=== PATIENT | male | born 1935 | race Caucasian/White ===

== ENCOUNTER 2019-04-19 07:01 | Outpatient (CLI) | payer MEDICARE, SELFPAY ==
[2019-04-19 07:21] LABS: Add Urine Microscopic? YES; Basophils Absolute Auto 0.04 K/mm3 (0.00-0.10); Basophils Percent Auto 0.9 % (0.0-1.0); Bilirubin Urine Negative (Negative); Blood Urine 3+ (Negative); Color Urine Yellow (Yellow); Eosinophils Absolute Auto 0.19 K/mm3 (0.02-0.50); Eosinophils Percent Auto 4.3 % (1.0-6.0); Glucose Urine UA Negative (Negative); Hemoglobin 11.4 g/dL (12.4-15.3); Immature Granulocyte Absolute 0.02 K/mm3 (0.00-0.00); Immature Granulocyte Percent A 0.5 % (0.0-0.0); Immature Platelet Fraction Pct 2.5 % (1.0-7.0); Ketones Urine Negative (Negative); Leukocyte Esterase Ur 3+ LEU/UL (Negative); Lymphocytes Absolute Auto 1.15 K/mm3 (1.10-4.50); Lymphocytes Percent Auto 26.3 % (18.0-42.0); Mean Corpuscular HGB Conc 33.5 g/dL (32.0-36.0); Mean Corpuscular Volume 95.5 fL (78.0-102.0); Monocytes Absolute Auto 0.43 K/mm3 (0.10-0.90); Monocytes Percent Auto 9.8 % (2.0-11.0); Neutrophils Absolute Auto 2.5 K/mm3 (1.7-7.2); Neutrophils Percent Auto 58.2 % (50.0-70.0); Nitrate Urine Negative (Negative); Platelet Count Result 74 K/mm3 (150-420); Protein Urine Trace (Negative); Red Blood Count 3.56 M/mm3 (4.70-6.10); Red Cell Distribution Width 14.5 % (11.6-14.4); Specific Grav Ur 1.015 (1.010-1.020); Urobilinogen Urine 0.2 mg/dL (0.2-1.0); White Blood Count 4.4 K/mm3 (4.8-10.8); pH Urine 6.5 (5.0-8.0)
[2019-04-19 07:26] LABS: Appearance Urine Cloudy (Clear); Bacteria Urine 1+ /hpf; Hemoglobin A1C 6.6 % (<5.7); WBC Urine >75 /hpf (0-3)
[2019-04-19 08:52] LABS: Alanine Aminotransferase 24 U/L (16-63); Albumin Level 3.2 g/dL (3.4-5.0); Alkaline Phosphatase 122 U/L (46-116); Anion Gap 15.4 mmol/L (7-16); Aspartate Amino Transferase 27 U/L (15-37); Bilirubin,Total 0.4 mg/dL (0.00-1.00); Blood Urea Nitrogen 28 mg/dL (7-18); Calcium 8.4 mg/dL (8.5-10.1); Carbon Dioxide 23 mmol/L (21-32); Chloride 109 mmol/L (98-108); Cholesterol 121 mg/dL (0-200); Estimated Glomerular Filt Rate 42; Glucose 126 mg/dL (70-99); HDL Direct 42 mg/dL (40-60); LDL Cholesterol Calculated 61 mg/dL (<130); Osmolality Calculated 303 mOsm/kg (285-295); Potassium 4.4 mmol/L (3.5-5.1); Prostate Specific Antigen 4.9 ng/mL (< OR = 4.0); Sodium 143 mmol/L (136-145); Total Protein 7.2 g/dL (6.4-8.2); Triglycerides 91 mg/dL (0-150)
== END 2019-04-19 07:02 | disposition home or self-care (01) ==
PROVIDERS: PCP Internal Medicine; Visit Provider Internal Medicine
DX: E78.5 Hyperlipidemia, unspecified (principal); E11.65 Type 2 diabetes mellitus with hyperglycemia; I10 Essential (primary) hypertension; R97.20 Elevated prostate specific antigen [PSA]; R82.90 Unspecified abnormal findings in urine
CPT/HCPCS: 36415; 80053; 80061; 81001; 83036; 84153; 85025; 85055; 87077; 87086; 87088; 87186

== ENCOUNTER 2019-05-09 11:03 | Outpatient (CLI) | payer MEDICARE, SELFPAY ==
--- NOTE | ~2019-05-09 | XR_ITS ---
XR hip LT min 2V DATE: 05/09/2019 11:20 INDICATION: Left hip pain, limited range of motion. TECHNIQUE: AP and lateral views of left hip COMPARISON: None FINDINGS: No fracture or dislocation, avascular necrosis or bone destruction. There is mild left hip osteoarthritis. IMPRESSION: Mild left hip osteoarthritis Reviewed, dictated and finalized at location A.
== END 2019-05-09 11:04 | disposition home or self-care (01) ==
PROVIDERS: PCP Internal Medicine; Visit Provider Internal Medicine
DX: M25.552 Pain in left hip (principal)
CPT/HCPCS: 73502

== ENCOUNTER 2019-08-04 11:26 | Outpatient (CLI) | payer MEDICARE, SELFPAY ==
--- NOTE | ~2019-08-04 | XR_ITS ---
XR hip LT min 2V 08/04/2019 12:06 Indication: Left hip pain. Procedure: 2 views left hip Comparison: 05/09/2019 Findings: No fracture, subluxation or dislocation. There is moderate osteoarthritis of the left hip.t here are degenerative changes of the pubic symphysis. Sacral foramen are symmetric. Impression: 1: Moderate osteoarthritis of the left hip. Reviewed, dictated and finalized at location A. Impression: 1: Moderate osteoarthritis of the left hip.
== END 2019-08-04 11:27 | disposition home or self-care (01) ==
LOC: CHSIMG 11:30
PROVIDERS: PCP Internal Medicine; Visit Provider Internal Medicine
DX: M25.552 Pain in left hip (principal)
CPT/HCPCS: 73502

== ENCOUNTER 2019-08-09 07:44 | Outpatient (CLI) | payer MEDICARE, SELFPAY ==
--- NOTE | ~2019-08-09 | MR_ITS ---
EXAMINATION: MR hip LT wo con DATE: 08/09/2019 08:56 INDICATION: Left hip pain. TECHNIQUE: Magnetic resonance imaging (MRI) of the left hip was performed without intravenous contras t. Sequences included axial and coronal PD-weighted FS FSE and axial T1-weighted FSE of the pelvis. S equences of the hip included 2D FIESTA, T1-weighted fast GRE, and axial, coronal, and sagittal PD-kirsten ghted FS FSE. COMPARISON: Left hip radiograph 08/04/2019 FINDINGS: Bones/cartilage: Bone alignment is normal. No fracture. There is severe lumbar spondylosis. There is mild right hip os teoarthritis and moderate left hip osteoarthritis. Left hip demonstrates deep partial thickness carti román loss superiorly. Labrum: The left acetabular labrum is torn. Fluid: There is no hip joint effusion. There is moderate right trochanteric bursitis and severe left trochan teric bursitis. Soft tissues: There are partial tears of the right gluteus minimus and gluteus medius tendons. There are partial te ars of the left gluteus minimus and gluteus medius tendons. There are partial tears of the left glute us minimus and gluteus medius myotendinous junctions. There is moderate to severe fatty atrophy of th e gluteus minimus and gluteus medius muscle bellies bilaterally. The iliopsoas tendons are normal. Th ere is moderate tendinopathy of the hamstring origins bilaterally. The prostate is moderately enlarge d. The bladder is distended with trabecular wall and left-sided diverticulum. IMPRESSION: 1. Grade 2 strains of the left gluteus minimus and gluteus medius muscle bellies. Partial tears of th e bilateral gluteus minimus and gluteus medius tendons. 2. Moderate right-sided trochanteric bursitis and severe left-sided trochanteric bursitis. 3. Mild right hip osteoarthritis and moderate left hip osteoarthritis. Reviewed, dictated and finalized at location A. IMPRESSION: 1. Grade 2 strains of the left gluteus minimus and gluteus medius muscle bellie s. Partial tears of the bilateral gluteus minimus and gluteus medius tendons. 2. Moderate right-sided trochanteric bursitis and severe left-sided trochanteri c bursitis. 3. Mild right hip osteoarthritis and moderate left hip osteoarthritis.
== END 2019-08-09 07:45 | disposition home or self-care (01) ==
LOC: CHSIMG 07:47
PROVIDERS: PCP Internal Medicine; Visit Provider Internal Medicine
DX: M25.552 Pain in left hip (principal)
CPT/HCPCS: 73721

== ENCOUNTER 2019-08-21 10:53 | Outpatient (CLI) | payer MEDICARE, SELFPAY ==
[2019-08-21 11:04] LABS: Basophils Absolute Auto 0.05 K/mm3 (0.00-0.10); Basophils Percent Auto 0.9 % (0.0-1.0); Eosinophils Absolute Auto 0.26 K/mm3 (0.02-0.50); Eosinophils Percent Auto 4.5 % (1.0-6.0); Hematocrit 33.3 % (37.0-46.0); Hemoglobin 11.2 g/dL (12.4-15.3); Immature Granulocyte Absolute 0.03 K/mm3 (0.00-0.00); Immature Granulocyte Percent A 0.5 % (0.0-0.0); Immature Platelet Fraction Pct 3.2 % (1.0-7.0); Lymphocytes Absolute Auto 1.28 K/mm3 (1.10-4.50); Lymphocytes Percent Auto 22.4 % (18.0-42.0); Mean Corpuscular HGB Conc 33.6 g/dL (32.0-36.0); Mean Corpuscular Hemoglobin 32.1 pg (27.0-31.0); Mean Corpuscular Volume 95.4 fL (78.0-102.0); Mean Platelet Volume 11.2 fl (8.7-11.0); Monocytes Absolute Auto 0.63 K/mm3 (0.10-0.90); Neutrophils Absolute Auto 3.5 K/mm3 (1.7-7.2); Neutrophils Percent Auto 60.7 % (50.0-70.0); Platelet Count Result 101 K/mm3 (150-420); Red Blood Count 3.49 M/mm3 (4.70-6.10); Red Cell Distribution Width 14.2 % (11.6-14.4); White Blood Count 5.7 K/mm3 (4.8-10.8)
[2019-08-21 11:24] LABS: Anion Gap 15.2 mmol/L (7-16); Blood Urea Nitrogen 22 mg/dL (7-18); Calcium 8.5 mg/dL (8.5-10.1); Carbon Dioxide 24 mmol/L (21-32); Chloride 103 mmol/L (98-108); Estimated Glomerular Filt Rate 44; Glucose 121 mg/dL (70-99); Osmolality Calculated 290 mOsm/kg (285-295); Potassium 4.2 mmol/L (3.5-5.1); Sodium 138 mmol/L (136-145)
== END 2019-08-21 10:54 | disposition home or self-care (01) ==
LOC: CHSLAB 10:55
PROVIDERS: PCP Internal Medicine; Visit Provider Internal Medicine
DX: D64.9 Anemia, unspecified (principal); N18.3 Chronic kidney disease, stage 3 (moderate)
CPT/HCPCS: 36415; 80048; 85025; 85055

== ENCOUNTER 2019-08-22 10:31 | Outpatient (CLI) | payer MEDICARE, SELFPAY ==
--- NOTE | ~2019-08-22 | XR_ITS ---
EXAMINATION: XR hip LT min 2V EXAM DATE: 08/22/2019 10:47 INDICATION: No known recent injury provided at this time. Pain of the left hip. Recent cortisone mikhail t. TECHNIQUE: Left hip frontal, 'frog leg' projections for interpretation. Comparison is made to prior e xamination from 08/04/2019. FINDINGS: Smooth left hip femoral head contour, no radiographic evidence of avascular necrosis. Ther e is moderate primary osteoarthritis. There are no acute fractures or dislocations identified. There is no subcutaneous gas. The soft tissue is unremarkable. There are no radiopaque foreign bodies. There is no significant interval change. IMPRESSION: Moderate left hip osteoarthritis unchanged. Reviewed, dictated and finalized at location B.
== END 2019-08-22 10:32 | disposition home or self-care (01) ==
LOC: CHSIMG 10:32
PROVIDERS: PCP Internal Medicine; Visit Provider Internal Medicine
DX: M25.552 Pain in left hip (principal)
CPT/HCPCS: 73502

== ENCOUNTER 2019-09-17 10:24 | Outpatient (CLI) | payer MEDICARE, SELFPAY ==
[2019-09-17 10:36] LABS: Hematocrit 33.5 % (37.0-46.0); Hemoglobin 11.1 g/dL (12.4-15.3); Mean Corpuscular HGB Conc 33.1 g/dL (32.0-36.0); Mean Corpuscular Hemoglobin 31.4 pg (27.0-31.0); Mean Corpuscular Volume 94.9 fL (78.0-102.0); Mean Platelet Volume 11.3 fl (8.7-11.0); Platelet Count Result 65 K/mm3 (150-420); Red Blood Count 3.53 M/mm3 (4.70-6.10); Red Cell Distribution Width 14.9 % (11.6-14.4); White Blood Count 3.3 K/mm3 (4.8-10.8)
[2019-09-17 11:39] LABS: Band Neutrophils Percent 0 % (0-6); Basophils Absolute Manual 0.03 K/mm3 (0-0.1); Basophils Percent Manual 1 % (0-1); Eosinophils Absolute Manual 0.26 K/mm3 (0.02-0.5); Eosinophils Percent Manual 8 % (1-6); Lymphocytes Absolute Manual 0.82 K/mm3 (1.1-4.5); Lymphocytes Percent Manual 25 % (18-44); Monocytes Absolute Manual 0.36 K/mm3 (0.1-0.90); Monocytes Percent Manual 11 % (3-9); Neutrophils Absolute Manual 1.81 K/mm3 (1.3-6.7); Neutrophils Percent Manual 55 % (46-73); Platelet Estimate Decreased (Adequate); Total Cells Counted 100
[2019-09-17 12:00] LABS: Alanine Aminotransferase 26 U/L (16-63); Albumin Level 2.9 g/dL (3.4-5.0); Alkaline Phosphatase 125 U/L (46-116); Anion Gap 14.3 mmol/L (7-16); Aspartate Amino Transferase 23 U/L (15-37); Bilirubin,Total 0.7 mg/dL (0.00-1.00); Blood Urea Nitrogen 23 mg/dL (7-18); Calcium 8.4 mg/dL (8.5-10.1); Carbon Dioxide 24 mmol/L (21-32); Chloride 103 mmol/L (98-108); Estimated Glomerular Filt Rate 45; Free T3 1.92 pg/mL (2.18-3.98); Free T4 Free Thyroxine 1.16 ng/dL (0.76-1.46); Glucose 237 mg/dL (70-99); Osmolality Calculated 295 mOsm/kg (285-295); Potassium 4.3 mmol/L (3.5-5.1); Sodium 137 mmol/L (136-145); Total Protein 6.4 g/dL (6.4-8.2); Vitamin B12 738 pg/mL (193-986)
== END 2019-09-17 10:25 | disposition home or self-care (01) ==
LOC: CHSLAB 10:25
PROVIDERS: PCP Internal Medicine; Visit Provider Internal Medicine
DX: G62.9 Polyneuropathy, unspecified (principal); I10 Essential (primary) hypertension; D64.9 Anemia, unspecified
CPT/HCPCS: 36415; 80053; 82607; 84439; 84443; 84481; 85025; 85055

== ENCOUNTER 2019-11-01 07:31 | Outpatient (CLI) | payer MEDICARE, SELFPAY ==
[2019-11-01 07:48] LABS: Basophils Absolute Auto 0.05 K/mm3 (0.00-0.10); Basophils Percent Auto 1.1 % (0.0-1.0); Eosinophils Absolute Auto 0.22 K/mm3 (0.02-0.50); Eosinophils Percent Auto 4.9 % (1.0-6.0); Hematocrit 34.9 % (37.0-46.0); Hemoglobin 11.1 g/dL (12.4-15.3); Immature Granulocyte Absolute 0.01 K/mm3 (0.00-0.00); Immature Granulocyte Percent A 0.2 % (0.0-0.0); Immature Platelet Fraction Pct 3.6 % (1.0-7.0); Lymphocytes Absolute Auto 1.24 K/mm3 (1.10-4.50); Lymphocytes Percent Auto 27.8 % (18.0-42.0); Mean Corpuscular HGB Conc 31.8 g/dL (32.0-36.0); Mean Corpuscular Hemoglobin 30.2 pg (27.0-31.0); Mean Corpuscular Volume 95.1 fL (78.0-102.0); Mean Platelet Volume 10.8 fl (8.7-11.0); Monocytes Percent Auto 11.2 % (2.0-11.0); Neutrophils Absolute Auto 2.4 K/mm3 (1.7-7.2); Neutrophils Percent Auto 54.8 % (50.0-70.0); Platelet Count Result 74 K/mm3 (150-420); Red Blood Count 3.67 M/mm3 (4.70-6.10); Red Cell Distribution Width 15.9 % (11.6-14.4); White Blood Count 4.5 K/mm3 (4.8-10.8)
[2019-11-01 08:03] LABS: Add Urine Microscopic? YES; Bilirubin Urine Negative (Negative); Blood Urine 3+ (Negative); Color Urine Yellow (Yellow); Glucose Urine UA Negative (Negative); Ketones Urine Negative (Negative); Leukocyte Esterase Ur 3+ (Negative); Nitrate Urine Negative (Negative); Protein Urine Trace (Negative); Specific Grav Ur 1.015 (1.010-1.020); Urobilinogen Urine 0.2 mg/dL (0.2-1.0)
[2019-11-01 08:08] LABS: Appearance Urine Cloudy (Clear)
[2019-11-01 08:09] LABS: Bacteria Urine 1+ /hpf; WBC Urine >75 /hpf (0-3)
[2019-11-01 08:12] LABS: Hemoglobin A1C 6.2 % (<5.7)
[2019-11-01 08:17] LABS: Creatinine Urine 62.08 mg/dL (40-278)
[2019-11-01 08:36] LABS: MALB Creatinine Ratio 208.4 mg/g (0-30); Microalbumin Urine Random 129.4 mg/L
[2019-11-01 08:56] LABS: Alanine Aminotransferase 28 U/L (16-63); Albumin Level 3.2 g/dL (3.4-5.0); Alkaline Phosphatase 117 U/L (46-116); Anion Gap 10 mmol/L (8-16); Aspartate Amino Transferase 25 U/L (15-37); Bilirubin,Total 0.6 mg/dL (0.00-1.00); Blood Urea Nitrogen 29 mg/dL (7-18); Calcium 8.7 mg/dL (8.5-10.1); Carbon Dioxide 22 mmol/L (21-32); Chloride 109 mmol/L (98-108); Cholesterol 120 mg/dL (0-200); Creatine Kinase 47 U/L (39-308); Estimated Glomerular Filt Rate 41; Ferritin 70 ng/mL (26-388); Glucose 125 mg/dL (70-99); HDL Direct 44 mg/dL (40-60); Iron 54 ug/dL (65-175); LDL Cholesterol Calculated 65 mg/dL (<130); Osmolality Calculated 298 mOsm/kg (285-295); Percent Iron Saturation 20 % (12-57); Potassium 4.3 mmol/L (3.5-5.1); Sodium 141 mmol/L (136-145); Triglycerides 53 mg/dL (0-150); Uric Acid 5.2 mg/dL (3.5-7.2)
== END 2019-11-01 07:32 | disposition home or self-care (01) ==
LOC: CHSLAB 07:34
PROVIDERS: PCP Internal Medicine; Visit Provider Internal Medicine
DX: E11.21 Type 2 diabetes mellitus with diabetic nephropathy (principal); E79.0 Hyperuricemia without signs of inflammatory arthritis and tophaceous disease; E78.2 Mixed hyperlipidemia; I12.9 Hypertensive chronic kidney disease with stage 1 through stage 4 chronic kidney disease, or unspecified chronic kidney disease; N18.3 Chronic kidney disease, stage 3 (moderate); D61.818 Other pancytopenia; R97.20 Elevated prostate specific antigen [PSA]
CPT/HCPCS: 36415; 80053; 80061; 81001; 82043; 82550; 82728; 83036; 83540; 83550; 84153; 84550; 85025; 85055

== ENCOUNTER 2019-11-21 09:13 | Outpatient (CLI) | payer MEDICARE, SELFPAY ==
--- NOTE | 2019-12-09 09:12 | WPDHOLTEREM ---
Holter/Event Monitor Holter/Event Monitor Date of procedure: 11/21/19 Procedure Type: 30 day event monitor Indications: Palpitations Conclusion: 1. 8 days event monitor between 11/21/19-12/08/19. There are 18 available transmissions for analysis. 2. Underlying rhythm is sinus rhythm. HR range 51-105 bpm; average HR 65 bpm. 3. There are occasional premature supraventricular complexes with total burden of <1%. No supraventricular tachycardia. 4. There are occasional premature ventricular complexes with total burden of <1%. No ventricular tachycardia. 5. No significant pauses greater than 2 seconds. 6. Patient reports 6 episodes of symptoms of lightheadedness, dizziness and symptoms other than listed which demonstrate sinus rhythm, HR range 63-75 bpm.
== END 2019-11-21 09:14 | disposition home or self-care (01) ==
LOC: CHSCARD 09:14
PROVIDERS: PCP Internal Medicine; Visit Provider Internal Medicine
DX: R00.2 Palpitations (principal)
CPT/HCPCS: 99199

== ENCOUNTER 2020-02-24 07:37 | Outpatient (CLI) | payer MEDICARE, SELFPAY ==
[2020-02-24 07:49] LABS: Basophils Absolute Auto 0.06 K/mm3 (0.00-0.10); Basophils Percent Auto 1.2 % (0.0-1.0); Eosinophils Absolute Auto 0.32 K/mm3 (0.02-0.50); Eosinophils Percent Auto 6.4 % (1.0-6.0); Hematocrit 33.9 % (37.0-46.0); Hemoglobin 10.8 g/dL (12.4-15.3); Immature Granulocyte Absolute 0.02 K/mm3 (0.00-0.00); Immature Granulocyte Percent A 0.4 % (0.0-0.0); Lymphocytes Absolute Auto 1.27 K/mm3 (1.10-4.50); Lymphocytes Percent Auto 25.5 % (18.0-42.0); Mean Corpuscular HGB Conc 31.9 g/dL (32.0-36.0); Mean Corpuscular Hemoglobin 30.3 pg (27.0-31.0); Mean Platelet Volume 10.8 fl (8.7-11.0); Monocytes Absolute Auto 0.48 K/mm3 (0.10-0.90); Monocytes Percent Auto 9.6 % (2.0-11.0); Neutrophils Absolute Auto 2.8 K/mm3 (1.7-7.2); Neutrophils Percent Auto 56.9 % (50.0-70.0); Platelet Count Result 95 K/mm3 (150-420); Red Blood Count 3.57 M/mm3 (4.70-6.10); Red Cell Distribution Width 14.6 % (11.6-14.4)
[2020-02-24 08:38] LABS: Anion Gap 9 mmol/L (8-16); Blood Urea Nitrogen 24 mg/dL (7-18); Calcium 8.9 mg/dL (8.5-10.1); Carbon Dioxide 23 mmol/L (21-32); Chloride 107 mmol/L (98-108); Estimated Glomerular Filt Rate 41; Ferritin 26 ng/mL (26-388); Glucose 127 mg/dL (70-99); Iron 64 ug/dL (65-175); Osmolality Calculated 294 mOsm/kg (285-295); Percent Iron Saturation 18 % (12-57); Potassium 4.3 mmol/L (3.5-5.1); Sodium 139 mmol/L (136-145)
== END 2020-02-24 07:38 | disposition home or self-care (01) ==
LOC: CHSLAB 07:39
PROVIDERS: PCP Internal Medicine; Visit Provider Internal Medicine
DX: D61.818 Other pancytopenia (principal); N18.30 Chronic kidney disease, stage 3 unspecified; D64.9 Anemia, unspecified
CPT/HCPCS: 36415; 80048; 82728; 83540; 83550; 85025; 85055

== ENCOUNTER 2020-05-22 07:33 | Outpatient (CLI) | payer MEDICARE, SELFPAY ==
[2020-05-22 07:49] LABS: Basophils Absolute Auto 0.04 K/mm3 (0.00-0.10); Basophils Percent Auto 0.8 % (0.0-1.0); Eosinophils Absolute Auto 0.22 K/mm3 (0.02-0.50); Eosinophils Percent Auto 4.5 % (1.0-6.0); Hematocrit 35.5 % (37.0-46.0); Hemoglobin 11.6 g/dL (12.4-15.3); Immature Granulocyte Absolute 0.01 K/mm3 (0.00-0.00); Immature Granulocyte Percent A 0.2 % (0.0-0.0); Lymphocytes Absolute Auto 1.39 K/mm3 (1.10-4.50); Lymphocytes Percent Auto 28.7 % (18.0-42.0); Mean Corpuscular HGB Conc 32.7 g/dL (32.0-36.0); Mean Corpuscular Hemoglobin 31.2 pg (27.0-31.0); Mean Corpuscular Volume 95.4 fL (78.0-102.0); Mean Platelet Volume 11.2 fl (8.7-11.0); Monocytes Absolute Auto 0.46 K/mm3 (0.10-0.90); Monocytes Percent Auto 9.5 % (2.0-11.0); Neutrophils Absolute Auto 2.7 K/mm3 (1.7-7.2); Neutrophils Percent Auto 56.3 % (50.0-70.0); Platelet Count Result 74 K/mm3 (150-420); Red Blood Count 3.72 M/mm3 (4.70-6.10); Red Cell Distribution Width 15.7 % (11.6-14.4); White Blood Count 4.9 K/mm3 (4.8-10.8)
[2020-05-22 08:47] LABS: Add Urine Microscopic? YES; Bilirubin Urine Negative (Negative); Blood Urine 3+ (Negative); Color Urine Yellow (Yellow); Glucose Urine UA Negative (Negative); Ketones Urine Negative (Negative); Leukocyte Esterase Ur 3+ (Negative); Nitrate Urine Positive (Negative); Protein Urine Trace (Negative); Specific Grav Ur 1.015 (1.010-1.020); Urobilinogen Urine 0.2 mg/dL (0.2-1.0)
[2020-05-22 08:49] LABS: Alanine Aminotransferase 26 U/L (16-63); Albumin Level 3.1 g/dL (3.4-5.0); Alkaline Phosphatase 113 U/L (46-116); Anion Gap 10 mmol/L (8-16); Aspartate Amino Transferase 23 U/L (15-37); Bilirubin,Total 0.5 mg/dL (0.00-1.00); Blood Urea Nitrogen 32 mg/dL (7-18); Calcium 8.6 mg/dL (8.5-10.1); Carbon Dioxide 24 mmol/L (21-32); Chloride 107 mmol/L (98-108); Cholesterol 116 mg/dL (0-200); Estimated Glomerular Filt Rate 39; Ferritin 86 ng/mL (26-388); Glucose 133 mg/dL (70-99); HDL Direct 48 mg/dL (40-60); Iron 38 ug/dL (65-175); LDL Cholesterol Calculated 52 mg/dL (<130); Osmolality Calculated 300 mOsm/kg (285-295); Percent Iron Saturation 13 % (12-57); Potassium 4.2 mmol/L (3.5-5.1); Sodium 141 mmol/L (136-145); Total Protein 6.7 g/dL (6.4-8.2); Triglycerides 79 mg/dL (0-150); Vitamin B12 708 pg/mL (193-986)
[2020-05-22 09:08] LABS: Appearance Urine Cloudy (Clear); RBC Urine None seen /hpf (0-2); Squamous Epithelial Cell Urine Rare /hpf (Few); WBC Urine >75 /hpf (0-3)
[2020-05-22 09:09] LABS: Bacteria Urine 1+ /hpf
== END 2020-05-22 07:34 | disposition home or self-care (01) ==
LOC: CHSLAB 07:34
PROVIDERS: PCP Internal Medicine; Visit Provider Internal Medicine
DX: E11.21 Type 2 diabetes mellitus with diabetic nephropathy (principal); D69.6 Thrombocytopenia, unspecified; I10 Essential (primary) hypertension; D61.818 Other pancytopenia; G62.9 Polyneuropathy, unspecified; N18.30 Chronic kidney disease, stage 3 unspecified
CPT/HCPCS: 36415; 80053; 80061; 81001; 82607; 82728; 83540; 83550; 85025; 85055

== ENCOUNTER → 2020-05-31 00:16 | Outpatient (CLI) | payer MEDICARE, SELFPAY ==
[2020-05-31 19:29] LABS: SARS-CoV-2 RNA PCR Negative
== END ==
PROVIDERS: PCP Internal Medicine; Visit Provider Surgery
DX: Z01.812 Encounter for preprocedural laboratory examination (principal); Z20.822 Contact with and (suspected) exposure to COVID-19
CPT/HCPCS: C9803; U0003; U0005

== ENCOUNTER 2020-06-03 01:52 | Day surgery (SDC) | payer MEDICARE, SELFPAY ==
[2020-05-26 13:54] VITALS: BMI 29.6
[2020-06-03 08:40] VITALS: BP 166/74; PULSE 65; RESP 18; TEMP 36.1; O2SAT 100; BMI 29.2
[2020-06-03] MEDS: LACTATED RINGERS 1,000 ML 150 ML IV CONT (08:55)
[2020-06-03 08:56] LABS: Glucose Point of Care 107 (65-105)
--- NOTE | 2020-06-03 09:50 | WPDANESEPPF ---
Anes - Initial Pre Proc Eval Procedure: Operation Date: 06/03/20 09:30 Proposed Procedures p Screening Colonoscopy - Marcio Park DO Date/Time: 06/03/20 09:50 Surgeon: Marcio Park DO Pre Op Diagnosis: personal hx of colon polyp Patient Data Age: 85 Gender: M Height: 5 ft 9 in Weight: 90 kg Last Vital Signs Temp 97 F L 06/03/20 08:40 Pulse 65 06/03/20 08:40 Resp 18 06/03/20 08:40 BP 166/74 H 06/03/20 08:40 Pulse Ox 100 06/03/20 08:40 Allergies Allergy/AdvReac Type Severity Reaction Status Date / Time No Known Allergies Allergy Verified 06/03/20 08:38 Home Medications Medication Instructions Recorded Confirmed Type allopurinol 100 mg PO DAILY 05/26/20 06/03/20 History aspirin [Adult Low Dose Aspirin] 81 mg PO DAILY 05/26/20 06/03/20 History atorvastatin 20 mg PO DAILY 05/26/20 06/03/20 History carvedilol 6.25 mg PO BID 05/26/20 06/03/20 History clopidogrel 75 mg PO DAILY 05/26/20 06/03/20 History folic acid 1 mg PO DAILY 05/26/20 06/03/20 History furosemide 20 mg PO DAILY 05/26/20 06/03/20 History glimepiride 0.5 mg PO DAILY 05/26/20 06/03/20 History losartan 25 mg PO BID 05/26/20 06/03/20 History tamsulosin 0.4 mg PO DAILY 05/26/20 06/03/20 History triamcinolone acetonide 0 applic TOPICAL PRN PRN 05/26/20 06/03/20 History Laboratory Tests 06/03/20 08:53 POC Capillary Glucose 107 mg/dl mg/dl (65-105) Patient hx anesthesia problems: none Family hx anesthesia problems: none PMFSH Past Medical History Medical History (Updated 06/03/20 @ 09:50 by Mao Starkey MD) CAD (coronary artery disease) Diabetes 1.5, managed as type 2 Hypertension Surgical History Surgical History (Updated 06/03/20 @ 09:50 by Mao Starkey MD) Stented coronary artery Social History Social History Smoking status: Never smoker Alcohol intake: former Substance use: never Substance use type: does not use Living arrangements: with family Spiritual care concerns: No Anes - Eval Final PreProcedure Day of Procedure 06/03/20 09:50 Patient weight: overweight Heart: regular rate and rhythm Lungs: clear to auscultation Airway: Mallampati scale class II Neurological: alert and oriented Last oral intake: >/= 8 hours ASA classification: III Emergent: no Anesthetic plan: proceed Anesthesia type and monitoring: general GIVS and standard monitoring Informed Consent: The patient's anesthetic plan and its attendant risks and benefits were discussed with the patient/family/POA. Questions were solicited and answers provided to the satisfaction of the patient/family/POA.
--- NOTE | 2020-06-03 09:59 | PM.IMHP ---
H&P: HPI History of Present Illness Date/Time: 06/03/20 09:59 Chief Complaint: history of colon polyp Narrative: this is an 85-year-old man who presents for colonoscopy. His last colonoscopy was done by me 5 years ago and 1 polyp was removed at that time. He denies any hematochezia or melena. There is no family history of colon cancer. Review of Systems Review of Systems: All systems reviewed & are unremarkable except as noted in HPI and below Constitutional: Constitutional: Denies chills, Denies fever(s), Denies headache(s) and Denies weight loss Eyes: Eyes: Denies change in vision ENT: Denies dizziness, Denies headache(s), Denies neck mass and Denies throat swelling Cardiovascular: Cardiovascular: Denies chest pain, Denies lightheadedness and Denies dyspnea Respiratory: Respiratory: Denies cough, Denies dyspnea and Denies wheezing Gastrointestinal: Gastrointestinal: Denies abdominal pain, Denies change in bowel habits, Denies nausea and Denies vomiting Genitourinary: Genitourinary: Denies hematuria and Denies dysuria Musculoskeletal: Musculoskeletal: Reports as per HPI Integumentary/Breasts: Skin/Breast: Reports as per HPI Neurologic: Denies dizziness and Denies headache(s) Allergic/Immunologic: Allergic/Immunologic: Denies throat swelling and Denies wheezing PMFSH Past Medical History Medical History (Updated 06/03/20 @ 10:01 by Marcio Park DO) CAD (coronary artery disease) Diabetes 1.5, managed as type 2 Hypertension Surgical History Surgical History (Updated 06/03/20 @ 09:50 by Mao Starkey MD) Stented coronary artery Social History Social History Smoking status: Never smoker Alcohol intake: former Substance use: never Substance use type: does not use Living arrangements: with family Spiritual care concerns: No Meds Home Medications and Allergies Home Medications Medication Instructions Recorded Confirmed Type allopurinol 100 mg PO DAILY 05/26/20 06/03/20 History aspirin [Adult Low Dose Aspirin] 81 mg PO DAILY 05/26/20 06/03/20 History atorvastatin 20 mg PO DAILY 05/26/20 06/03/20 History carvedilol 6.25 mg PO BID 05/26/20 06/03/20 History clopidogrel 75 mg PO DAILY 05/26/20 06/03/20 History folic acid 1 mg PO DAILY 05/26/20 06/03/20 History furosemide 20 mg PO DAILY 05/26/20 06/03/20 History glimepiride 0.5 mg PO DAILY 05/26/20 06/03/20 History losartan 25 mg PO BID 05/26/20 06/03/20 History tamsulosin 0.4 mg PO DAILY 05/26/20 06/03/20 History triamcinolone acetonide 0 applic TOPICAL PRN PRN 05/26/20 06/03/20 History Allergies Allergy/AdvReac Type Severity Reaction Status Date / Time No Known Allergies Allergy Verified 06/03/20 08:38 Vital Signs Vital Signs - 24 hr 06/03/20 08:40 Temperature 36.1 C L Pulse Rate 65 Respiratory Rate 18 Blood Pressure 166/74 H Pulse Oximetry 100 Exam Const: General: no acute distress and alert Orientation/consciousness: patient oriented x3 HENMT: Head: normocephalic and atraumatic Ears: hearing grossly normal bilaterally General nose exam: Normal nares present Mouth: Yes Normal oral and palatal mucosa present Eyes: Periorbital: periorbital findings normal Sclera: sclerae normal EOM: EOMs intact bilaterally Neck: Neck: normal visual inspection, no lymphadenopathy and trachea midline Chest: Chest palpation & inspection: normal inspection of the chest Resp: Effort & Inspection: normal respiratory effort Auscultation: clear to auscultation bilaterally Cardio: Jugular venous distension: no JVD Rate: regular rate Rhythm: regular rhythm Heart sounds: S1 normal heart sound present and S2 normal heart sound present Peripheral pulses: Peripheral pulses 2+ throughout GI: Inspection: normal to inspection GI Palp: Yes Soft to palpation, No Tenderness to palpation present (GI), No Guarding due to palpation present (GI) and No Rebound tenderness present Percussion: Yes normal to percussion Auscultation
[2020-06-03 10:31] VITALS: BP 107/56; PULSE 66; RESP 20; O2SAT 99
[2020-06-03 10:41] VITALS: BP 118/58; PULSE 60; RESP 17; O2SAT 99
[2020-06-03 10:51] VITALS: BP 133/63; PULSE 62; RESP 17; O2SAT 99
== END 2020-06-03 11:03 | disposition home or self-care (01) ==
PROVIDERS: PCP Internal Medicine; Visit Provider Surgery
PROC: 0DJD8ZZ Inspection of Lower Intestinal Tract, Via Natural or Artificial Opening Endoscopic (ICD-10-PCS; CPT 45378; principal; 2020-06-03 09:30)
DX: Z12.11 Encounter for screening for malignant neoplasm of colon (principal); K55.20 Angiodysplasia of colon without hemorrhage; K57.30 Diverticulosis of large intestine without perforation or abscess without bleeding; K64.8 Other hemorrhoids; I25.10 Atherosclerotic heart disease of native coronary artery without angina pectoris; I10 Essential (primary) hypertension; E13.9 Other specified diabetes mellitus without complications; Z86.010 Personal history of colon polyps; Z95.5 Presence of coronary angioplasty implant and graft
CPT/HCPCS: G0105; J2704; J7120

== ENCOUNTER 2020-06-17 11:15 | Outpatient (CLI) | payer MEDICARE, SELFPAY ==
--- NOTE | ~2020-06-17 | XR_ITS ---
XR ribs LT 2V w CXR 2V DATE: 06/17/2020 11:45 INDICATION: Left anterior lower rib pain. Dyspnea. TECHNIQUE: 3 views of the left ribs. 2 view chest COMPARISON: 04/01/2015 2 view chest FINDINGS: Subtle minimally displaced anterior left eighth and ninth rib fractures. No other left rib fractures noted. Normal heart size. Is aortic calcification and mild unfolding. Mild atelectasis at the left lung base . Otherwise no pulmonary infiltrate or consolidation, pleural effusion or pulmonary vascular congesti on or pneumothorax is noted otherwise. Scoliosis and extensive degenerative spurring of the thoracic spine. IMPRESSION: Subtle minimally displaced anterior left eighth and ninth rib fractures Reviewed, dictated and finalized at location A. IMPRESSION: Subtle minimally displaced anterior left eighth and ninth rib fract ures
== END 2020-06-17 11:16 | disposition home or self-care (01) ==
LOC: CHSIMG 11:17
PROVIDERS: PCP Internal Medicine; Visit Provider Internal Medicine
DX: R07.89 Other chest pain (principal)
CPT/HCPCS: 71046; 71100

== ENCOUNTER 2020-09-11 07:46 | Outpatient (CLI) | payer MEDICARE, SELFPAY ==
[2020-09-11 08:04] LABS: Basophils Absolute Auto 0.04 K/mm3 (0.00-0.10); Basophils Percent Auto 0.9 % (0.0-1.0); Eosinophils Absolute Auto 0.19 K/mm3 (0.02-0.50); Eosinophils Percent Auto 4.4 % (1.0-6.0); Hematocrit 37.8 % (37.0-46.0); Hemoglobin 12.7 g/dL (12.4-15.3); Immature Granulocyte Absolute 0.01 K/mm3 (0.00-0.00); Immature Granulocyte Percent A 0.2 % (0.0-0.0); Immature Platelet Fraction Pct 3.3 % (1.0-7.0); Lymphocytes Absolute Auto 1.02 K/mm3 (1.10-4.50); Lymphocytes Percent Auto 23.6 % (18.0-42.0); Mean Corpuscular HGB Conc 33.6 g/dL (32.0-36.0); Mean Corpuscular Hemoglobin 31.8 pg (27.0-31.0); Mean Corpuscular Volume 94.7 fL (78.0-102.0); Mean Platelet Volume 11.7 fl (8.7-11.0); Monocytes Absolute Auto 0.36 K/mm3 (0.10-0.90); Monocytes Percent Auto 8.3 % (2.0-11.0); Neutrophils Absolute Auto 2.7 K/mm3 (1.7-7.2); Neutrophils Percent Auto 62.6 % (50.0-70.0); Platelet Count Result 65 K/mm3 (150-420); Red Blood Count 3.99 M/mm3 (4.70-6.10); Red Cell Distribution Width 14.2 % (11.6-14.4); White Blood Count 4.3 K/mm3 (4.8-10.8)
[2020-09-11 08:06] LABS: Hemoglobin A1C 5.8 % (<5.7)
[2020-09-11 08:52] LABS: Blood Urea Nitrogen 29 mg/dL (7-18); Calcium 8.8 mg/dL (8.5-10.1); Chloride 111 mmol/L (98-108); Estimated Glomerular Filt Rate 38; Glucose 123 mg/dL (70-99); Osmolality Calculated 304 mOsm/kg (285-295); Potassium 4.4 mmol/L (3.5-5.1); Prostate Specific Antigen 4.4 ng/mL (< OR = 4.0); Sodium 144 mmol/L (136-145); Uric Acid 4.8 mg/dL (3.5-7.2)
[2020-09-11 09:01] LABS: Anion Gap 13 mmol/L (8-16); Carbon Dioxide 20 mmol/L (21-32)
[2020-09-11 09:04] LABS: Appearance Urine Cloudy (Clear); Blood Urine 3+ (Negative); Color Urine Yellow (Yellow); Glucose Urine UA Negative (Negative); Ketones Urine Negative (Negative); Protein Urine 1+ (Negative); Specific Grav Ur 1.015 (1.010-1.020)
[2020-09-11 09:05] LABS: Add Urine Microscopic? YES; Bacteria Urine 1+ /hpf; Bilirubin Urine Negative (Negative); Leukocyte Esterase Ur 3+ (Negative); Nitrate Urine Positive (Negative); Squamous Epithelial Cell Urine Rare /hpf (Few); Urobilinogen Urine 0.2 mg/dL (0.2-1.0); WBC Urine >75 /hpf (0-3)
== END 2020-09-11 07:47 | disposition home or self-care (01) ==
LOC: CHSLAB 07:48
PROVIDERS: PCP Internal Medicine; Visit Provider Internal Medicine
DX: E11.9 Type 2 diabetes mellitus without complications (principal); N18.30 Chronic kidney disease, stage 3 unspecified; R97.20 Elevated prostate specific antigen [PSA]
CPT/HCPCS: 36415; 80048; 81001; 83036; 84153; 84550; 85025; 85055

== ENCOUNTER 2020-10-14 07:38 | Outpatient (CLI) | payer MEDICARE, SELFPAY ==
[2020-10-14 07:56] LABS: Hematocrit 36.1 % (37.0-46.0); Hemoglobin 11.9 g/dL (12.4-15.3); Immature Platelet Fraction Pct 3.4 % (1.0-7.0); Mean Corpuscular Hemoglobin 31.6 pg (27.0-31.0); Mean Corpuscular Volume 95.8 fL (78.0-102.0); Platelet Count Result 58 K/mm3 (150-420); Red Blood Count 3.77 M/mm3 (4.70-6.10); Red Cell Distribution Width 14.6 % (11.6-14.4); White Blood Count 3.4 K/mm3 (4.8-10.8)
[2020-10-14 08:04] LABS: Add Urine Microscopic? YES; Appearance Urine Clear (Clear); Bilirubin Urine Negative (Negative); Blood Urine 3+ (Negative); Color Urine Light Yellow (Yellow); Glucose Urine UA Negative (Negative); Ketones Urine Negative (Negative); Leukocyte Esterase Ur Trace (Negative); Nitrate Urine Negative (Negative); Protein Urine 1+ (Negative); Urobilinogen Urine 0.2 mg/dL (0.2-1.0)
[2020-10-14 08:22] LABS: Bacteria Urine 1+ /hpf; RBC Urine >75 /hpf (0-2); Squamous Epithelial Cell Urine Rare /hpf (Few); WBC Urine 0-3 /hpf (0-3)
[2020-10-14 08:53] LABS: Band Neutrophils Percent 0 % (0-6); Basophils Absolute Manual 0.03 K/mm3 (0-0.1); Basophils Percent Manual 1 % (0-1); Eosinophils Absolute Manual 0.23 K/mm3 (0.02-0.5); Eosinophils Percent Manual 7 % (1-6); Lymphocytes Absolute Manual 0.98 K/mm3 (1.1-4.5); Lymphocytes Percent Manual 29 % (18-44); Monocytes Absolute Manual 0.34 K/mm3 (0.1-0.90); Monocytes Percent Manual 10 % (3-9); Neutrophils Percent Manual 100 % (46-73); Platelet Estimate Decreased (Adequate)
[2020-10-14 08:55] LABS: Alanine Aminotransferase 32 U/L (16-63); Albumin Level 3.2 g/dL (3.4-5.0); Alkaline Phosphatase 108 U/L (46-116); Anion Gap 13 mmol/L (8-16); Aspartate Amino Transferase 29 U/L (15-37); Bilirubin,Total 0.9 mg/dL (0.00-1.00); Blood Urea Nitrogen 28 mg/dL (7-18); Calcium 8.7 mg/dL (8.5-10.1); Carbon Dioxide 20 mmol/L (21-32); Chloride 110 mmol/L (98-108); Estimated Glomerular Filt Rate 44; Free T3 2.02 pg/mL (2.18-3.98); Free T4 Free Thyroxine 1.17 ng/dL (0.76-1.46); Glucose 117 mg/dL (70-99); Osmolality Calculated 302 mOsm/kg (285-295); Potassium 4.2 mmol/L (3.5-5.1); Prostate Specific Antigen 3.6 ng/mL (< OR = 4.0); Sodium 143 mmol/L (136-145); Thyroid Stimulating Hormone 1.26 uIU/mL (0.36-3.74); Total Protein 6.6 g/dL (6.4-8.2)
== END 2020-10-14 07:39 | disposition home or self-care (01) ==
LOC: CHSLAB 07:40
PROVIDERS: PCP Internal Medicine; Visit Provider Internal Medicine
DX: N39.0 Urinary tract infection, site not specified (principal); N41.9 Inflammatory disease of prostate, unspecified; N18.30 Chronic kidney disease, stage 3 unspecified; D50.9 Iron deficiency anemia, unspecified; E11.9 Type 2 diabetes mellitus without complications; R97.20 Elevated prostate specific antigen [PSA]
CPT/HCPCS: 36415; 80053; 81001; 84153; 84439; 84443; 84481; 85025; 85055; 87086; G0103

== ENCOUNTER 2020-10-25 12:25 | Outpatient (CLI) | payer MEDICARE, SELFPAY ==
--- NOTE | ~2020-10-25 | US_ITS ---
EXAMINATION: US retroperitoneal comp DATE: 10/25/2020 12:52 INDICATION: Hematuria TECHNIQUE: Multiple ultrasound grayscale images of the kidneys were obtained. COMPARISON: CT dated 11/12/2017 and ultrasound dated 10/22/2017 FINDINGS: The right kidney measures 10.1 x 5.6 x 5.4 cm. The left kidney measures 9.9 x 5.4 x 4.7 cm. Mild to m oderate cortical thinning at the left kidney. The kidneys demonstrate normal echogenicity. Bilateral anechoic renal cysts measuring 1.8 cm and 8 mm at the left kidney and 7 mm at the right kidney. There is no hydronephrosis in either kidney. No stones identified. There are multiple bladder diverticula, the largest at the left posterior bladder which can be seen dating back to CT dated 09/04/2014. Statu s enlarged measuring at least 4.3 x 3.8 cm IMPRESSION: 1. Mild to moderate left renal atrophy. No hydronephrosis in either kidney. 2. 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 Reviewed, dictated and finalized at location A. IMPRESSION: 1. Mild to moderate left renal atrophy. No hydronephrosis in either kidney. 2. Multiple bladder diverticula likely related to chronic outlet obstruction fr om the enlarged prostate.
== END 2020-10-25 12:26 | disposition home or self-care (01) ==
LOC: CHSIMG 12:26
PROVIDERS: PCP Internal Medicine; Visit Provider Internal Medicine
DX: R31.9 Hematuria, unspecified (principal)
CPT/HCPCS: 76770

== ENCOUNTER 2020-12-21 06:54 | Outpatient (CLI) | payer MEDICARE, SELFPAY ==
[2020-12-21 07:08] LABS: Add Urine Microscopic? YES; Appearance Urine Clear (Clear); Bilirubin Urine Negative (Negative); Blood Urine 3+ (Negative); Color Urine Yellow (Yellow); Glucose Urine UA Negative (Negative); Ketones Urine Negative (Negative); Leukocyte Esterase Ur Negative (Negative); Nitrate Urine Negative (Negative); Protein Urine 1+ (Negative); Urobilinogen Urine 0.2 mg/dL (0.2-1.0)
[2020-12-21 07:10] LABS: Hematocrit 34.1 % (37.0-46.0); Hemoglobin 11.2 g/dL (12.4-15.3); Immature Platelet Fraction Pct 4.1 % (1.0-7.0); Immature Reticulocyte Fraction 10.3 % (2.0-16.52); Mean Corpuscular HGB Conc 32.8 g/dL (32.0-36.0); Mean Corpuscular Hemoglobin 32.3 pg (27.0-31.0); Mean Corpuscular Volume 98.3 fL (78.0-102.0); Mean Platelet Volume 11.4 fl (8.7-11.0); Platelet Count Result 59 K/mm3 (150-420); Red Blood Count 3.47 M/mm3 (4.70-6.10); Red Cell Distribution Width 14.6 % (11.6-14.4); Reticulocyte Percent 1.57 % (0.50-1.50); Reticulocytes Absolute 0.05 M/mm3 (0.02-0.1); White Blood Count 3.5 K/mm3 (4.8-10.8)
[2020-12-21 07:13] LABS: Bacteria Urine Trace /hpf; RBC Urine 51-75 /hpf (0-2); WBC Urine 0-3 /hpf (0-3)
[2020-12-21 07:23] LABS: Hemoglobin A1C 5.6 % (<5.7)
[2020-12-21 07:32] LABS: Band Neutrophils Percent 0 % (0-6); Basophils Absolute Manual 0.07 K/mm3 (0-0.1); Basophils Percent Manual 2 % (0-1); Eosinophils Absolute Manual 0.07 K/mm3 (0.02-0.5); Eosinophils Percent Manual 2 % (1-6); Lymphocytes Absolute Manual 1.05 K/mm3 (1.1-4.5); Lymphocytes Percent Manual 30 % (18-44); Monocytes Absolute Manual 0.35 K/mm3 (0.1-0.90); Monocytes Percent Manual 10 % (3-9); Neutrophils Absolute Manual 1.96 K/mm3 (1.3-6.7); Neutrophils Percent Manual 56 % (46-73); Platelet Estimate Decreased (Adequate); Total Cells Counted 100
[2020-12-21 09:37] LABS: Alanine Aminotransferase 31 U/L (16-63); Albumin Level 3.2 g/dL (3.4-5.0); Alkaline Phosphatase 102 U/L (46-116); Anion Gap 11 mmol/L (8-16); Aspartate Amino Transferase 21 U/L (15-37); Bilirubin,Total 0.8 mg/dL (0.00-1.00); Blood Urea Nitrogen 23 mg/dL (7-18); Calcium 8.3 mg/dL (8.5-10.1); Carbon Dioxide 24 mmol/L (21-32); Chloride 109 mmol/L (98-108); Cholesterol 118 mg/dL (0-200); Creatine Kinase 61 U/L (39-308); Estimated Glomerular Filt Rate 44; Ferritin 85 ng/mL (26-388); Free T4 Free Thyroxine 1.13 ng/dL (0.76-1.46); Glucose 94 mg/dL (70-99); HDL Direct 53 mg/dL (40-60); Iron 58 ug/dL (65-175); LDL Cholesterol Calculated 53 mg/dL (<130); Osmolality Calculated 301 mOsm/kg (285-295); Percent Iron Saturation 21 % (12-57); Potassium 4.3 mmol/L (3.5-5.1); Sodium 144 mmol/L (136-145); Thyroid Stimulating Hormone 1.67 uIU/mL (0.36-3.74); Total Protein 6.4 g/dL (6.4-8.2); Triglycerides 62 mg/dL (0-150); Uric Acid 4.5 mg/dL (3.5-7.2); Vitamin B12 600 pg/mL (193-986)
[2020-12-25 07:41] LABS: Red Blood Cell Folate 899 ng/mL RBC (>280)
== END 2020-12-21 06:55 | disposition home or self-care (01) ==
LOC: CHSLAB 06:56
PROVIDERS: PCP Internal Medicine; Visit Provider Internal Medicine
DX: E11.21 Type 2 diabetes mellitus with diabetic nephropathy (principal); I10 Essential (primary) hypertension; D61.818 Other pancytopenia; G62.9 Polyneuropathy, unspecified; R97.20 Elevated prostate specific antigen [PSA]; R30.0 Dysuria; E78.2 Mixed hyperlipidemia; D50.9 Iron deficiency anemia, unspecified; E79.0 Hyperuricemia without signs of inflammatory arthritis and tophaceous disease; N39.0 Urinary tract infection, site not specified
CPT/HCPCS: 36415; 80053; 80061; 81001; 82550; 82607; 82728; 82747; 83036; 83540; 83550; 84439; 84443; 84550; 85025; 85046; 85055; 87086

== ENCOUNTER 2021-04-04 07:13 | Outpatient (CLI) | payer MEDICARE, SELFPAY ==
[2021-04-04 07:28] LABS: Add Urine Microscopic? YES; Appearance Urine Sl Cloudy (Clear); Bilirubin Urine Negative (Negative); Blood Urine 3+ (Negative); Color Urine Yellow (Yellow); Glucose Urine UA Negative (Negative); Ketones Urine Negative (Negative); Leukocyte Esterase Ur Trace (Negative); Nitrate Urine Negative (Negative); Protein Urine 1+ (Negative); Urobilinogen Urine 0.2 mg/dL (0.2-1.0); pH Urine 6.5 (5.0-8.0)
[2021-04-04 07:30] LABS: Hematocrit 34.3 % (37.0-46.0); Hemoglobin 11.2 g/dL (12.4-15.3); Immature Platelet Fraction Pct 3.3 % (1.0-7.0); Mean Corpuscular HGB Conc 32.7 g/dL (32.0-36.0); Mean Corpuscular Hemoglobin 31.6 pg (27.0-31.0); Mean Corpuscular Volume 96.9 fL (78.0-102.0); Mean Platelet Volume 11.2 fl (8.7-11.0); Platelet Count Result 64 K/mm3 (150-420); Red Blood Count 3.54 M/mm3 (4.70-6.10); Red Cell Distribution Width 14.9 % (11.6-14.4); White Blood Count 3.4 K/mm3 (4.8-10.8)
[2021-04-04 07:56] LABS: RBC Urine >75 /hpf (0-2)
[2021-04-04 07:57] LABS: Bacteria Urine Trace /hpf; WBC Urine 0-3 /hpf (0-3)
[2021-04-04 08:26] LABS: Albumin Level 3.1 g/dL (3.4-5.0); Alkaline Phosphatase 97 U/L (46-116); Anion Gap 11 mmol/L (8-16); Aspartate Amino Transferase 26 U/L (15-37); Bilirubin,Total 0.8 mg/dL (0.00-1.00); Blood Urea Nitrogen 23 mg/dL (7-18); Calcium 8.7 mg/dL (8.5-10.1); Carbon Dioxide 24 mmol/L (21-32); Chloride 105 mmol/L (98-108); Estimated Glomerular Filt Rate 45; Glucose 91 mg/dL (70-99); Osmolality Calculated 293 mOsm/kg (285-295); Potassium 4.3 mmol/L (3.5-5.1); Prostate Specific Antigen 3.6 ng/mL (< OR = 4.0); Sodium 140 mmol/L (136-145); Total Protein 6.6 g/dL (6.4-8.2)
[2021-04-04 08:28] LABS: Band Neutrophils Percent 0 % (0-6); Eosinophils Percent Manual 6 % (1-6); Lymphocytes Absolute Manual 1.12 K/mm3 (1.1-4.5); Lymphocytes Percent Manual 33 % (18-44); Monocytes Absolute Manual 0.37 K/mm3 (0.1-0.90); Monocytes Percent Manual 11 % (3-9); Neutrophils Percent Manual 50 % (46-73); Platelet Estimate Decreased (Adequate); Total Cells Counted 100
[2021-04-04 08:45] LABS: Alanine Aminotransferase 26 U/L (16-63)
== END 2021-04-04 07:14 | disposition home or self-care (01) ==
LOC: CHSLAB 07:15
PROVIDERS: PCP Internal Medicine; Visit Provider Internal Medicine
DX: D61.818 Other pancytopenia (principal); R31.21 Asymptomatic microscopic hematuria; D50.9 Iron deficiency anemia, unspecified; R97.20 Elevated prostate specific antigen [PSA]
CPT/HCPCS: 36415; 80053; 81001; 84153; 85025; 85055

== ENCOUNTER 2021-07-08 07:09 | Outpatient (CLI) | payer MEDICARE, SELFPAY ==
[2021-07-08 07:23] LABS: Add Urine Microscopic? YES; Appearance Urine Clear (Clear); Bilirubin Urine Negative (Negative); Blood Urine 3+ (Negative); Color Urine Light Yellow (Yellow); Glucose Urine UA Negative (Negative); Ketones Urine Negative (Negative); Leukocyte Esterase Ur 1+ (Negative); Nitrate Urine Negative (Negative); Protein Urine Trace (Negative); Urobilinogen Urine 0.2 mg/dL (0.2-1.0)
[2021-07-08 07:24] LABS: Basophils Absolute Auto 0.04 K/mm3 (0.00-0.10); Basophils Percent Auto 0.8 % (0.0-1.0); Eosinophils Absolute Auto 0.22 K/mm3 (0.02-0.50); Eosinophils Percent Auto 4.6 % (1.0-6.0); Hematocrit 32.3 % (37.0-46.0); Hemoglobin 10.7 g/dL (12.4-15.3); Immature Granulocyte Absolute 0.03 K/mm3 (0.00-0.00); Immature Granulocyte Percent A 0.6 % (0.0-0.0); Lymphocytes Absolute Auto 1.11 K/mm3 (1.10-4.50); Lymphocytes Percent Auto 23.4 % (18.0-42.0); Mean Corpuscular HGB Conc 33.1 g/dL (32.0-36.0); Mean Corpuscular Volume 96.7 fL (78.0-102.0); Mean Platelet Volume 10.9 fl (8.7-11.0); Monocytes Absolute Auto 0.58 K/mm3 (0.10-0.90); Monocytes Percent Auto 12.2 % (2.0-11.0); Neutrophils Absolute Auto 2.8 K/mm3 (1.7-7.2); Neutrophils Percent Auto 58.4 % (50.0-70.0); Platelet Count Result 66 K/mm3 (150-420); Red Blood Count 3.34 M/mm3 (4.70-6.10); Red Cell Distribution Width 14.7 % (11.6-14.4); White Blood Count 4.7 K/mm3 (4.8-10.8)
[2021-07-08 07:30] LABS: RBC Urine 21-50 /hpf (0-2); Squamous Epithelial Cell Urine Rare /hpf (Few); WBC Urine 0-3 /hpf (0-3)
[2021-07-08 07:31] LABS: Bacteria Urine Trace /hpf
[2021-07-08 09:30] LABS: Alanine Aminotransferase 19 U/L (16-63); Albumin Level 2.9 g/dL (3.4-5.0); Alkaline Phosphatase 109 U/L (46-116); Anion Gap 9 mmol/L (8-16); Aspartate Amino Transferase 21 U/L (15-37); Bilirubin,Total 1.1 mg/dL (0.00-1.00); Blood Urea Nitrogen 24 mg/dL (7-18); Calcium 8.3 mg/dL (8.5-10.1); Carbon Dioxide 22 mmol/L (21-32); Chloride 106 mmol/L (98-108); Cholesterol 103 mg/dL (0-200); Creatine Kinase 55 U/L (39-308); Estimated Glomerular Filt Rate 45; Ferritin 135 ng/mL (26-388); Free T3 1.86 pg/mL (2.18-3.98); Free T4 Free Thyroxine 1.16 ng/dL (0.76-1.46); Glucose 77 mg/dL (70-99); HDL Direct 50 mg/dL (40-60); Iron 60 ug/dL (65-175); LDL Cholesterol Calculated 42 mg/dL (<130); Osmolality Calculated 287 mOsm/kg (285-295); Potassium 4.2 mmol/L (3.5-5.1); Sodium 137 mmol/L (136-145); Thyroid Stimulating Hormone 1.48 uIU/mL (0.36-3.74); Total Protein 6.4 g/dL (6.4-8.2); Triglycerides 55 mg/dL (0-150); Uric Acid 4.1 mg/dL (3.5-7.2); Vitamin B12 638 pg/mL (193-986)
== END 2021-07-08 07:10 | disposition home or self-care (01) ==
LOC: CHSLAB 07:11
PROVIDERS: PCP Internal Medicine; Visit Provider Internal Medicine
DX: E79.0 Hyperuricemia without signs of inflammatory arthritis and tophaceous disease (principal); G62.9 Polyneuropathy, unspecified; D50.9 Iron deficiency anemia, unspecified; I12.9 Hypertensive chronic kidney disease with stage 1 through stage 4 chronic kidney disease, or unspecified chronic kidney disease; D61.818 Other pancytopenia; E78.2 Mixed hyperlipidemia; N18.31 Chronic kidney disease, stage 3a; R31.21 Asymptomatic microscopic hematuria
CPT/HCPCS: 36415; 80053; 80061; 81001; 82550; 82607; 82728; 83540; 84439; 84443; 84481; 84550; 85025; 85055; 88112

== ENCOUNTER 2021-07-12 08:00 | Outpatient (CLI) | payer MEDICARE, SELFPAY ==
--- NOTE | ~2021-07-12 | MR_ITS ---
EXAMINATION: MR lumbar spine wo con DATE: 07/12/2021 08:44 INDICATION: Low back pain and lumbar central canal stenosis TECHNIQUE: Magnetic resonance imaging (MRI) of the lumbar spine was performed without intravenous con trast. Sequences included sagittal T2-weighted FSE, sagittal T2-weighted FS FSE, sagittal T1-weighted FSE, and axial T2-weighted FSE. COMPARISON: None FINDINGS: 2-3 mm retrolisthesis L1 on L2, L2 on L3 and L3 on L4, 4 mm retrolisthesis L4 on L5 and 5 mm retrolis thesis L5 on S1. 6 degree lumbar levocurvature. Vertebral body heights are normal. There are several Schmorl's nodes in the lumbar and lower thoracic spine the largest along the superior and inferior en dplates of L1. Severe disc height loss from T11-T12 through L5-S1. There are fibrovascular and fibrof atty degenerative endplate changes some degree at each of these levels. Marrow signal is otherwise no rmal. The conus medullaris terminates at L1. There is normal signal in the caudal spinal cord. Modera te left renal atrophy with three T2 hyperintense left renal cysts the largest measuring 1.9 cm. Mild subcutaneous edema posterior to the lumbar spine. Paravertebral soft tissues are otherwise unremarkab le. The following disc levels are specifically discussed: [id number]: Annular fissure with disc extrusion extending from foraminal zone to foraminal zone with di sc material extending up to 3 mm caudal to the level of the superior endplate of T12. There is modera te bilateral facet joint osteoarthritis. There is altered left and mild to moderate right neural fora anny stenosis. There is mild central canal stenosis. T12-L1: Disc is mildly bulging. There is mild bilateral facet joint osteoarthritis. There is mild yolanda ateral neural foraminal stenosis. There is no central canal stenosis. L1-L2: Annular fissure with disc extrusion extending from foraminal zone to foraminal zone with disc material extending up to 4 mm caudal to the level of the superior endplate of L2. There is hypertroph y of the ligamentum flavum. There is mild bilateral facet joint osteoarthritis. There is moderate yolanda ateral neural foraminal stenosis. There is mild central canal stenosis. L2-L3: Annular fissure with disc extrusion extending from foraminal zone to foraminal zone with disc material extending up to 5 mm caudal to the level of the superior endplate of L3. There is moderate b ilateral facet joint osteoarthritis. There is moderate left and moderate to severe right neural miguel inal stenosis. There is moderate central canal stenosis. L3-L4: Annular fissure and disc extrusion extending from foraminal zone to foraminal zone with disc m aterial extending up to 7 mm caudal to the level of the superior endplate of L3. There is hypertrophy of the ligamentum flavum. There is moderate bilateral facet joint osteoarthritis. There is moderate to severe bilateral neural foraminal stenosis. There is severe central canal stenosis. L4-L5: Annular fissure with disc extrusion extending from foraminal zone to foraminal zone with disc material extending 3 mm caudal to the level of the superior endplate of L5. There is wall to moderate left and severe right facet joint osteoarthritis. There is moderate bilateral neural foraminal steno sis. There is mild central canal stenosis. L5-S1: Annular fissure with disc extrusion extending from foraminal zone to foraminal zone with disc material extending 4 mm caudal to the level of the superior endplate of S1. There is moderate left an d mild to moderate right facet joint osteoarthritis. There is moderate right and moderate to severe l eft neural foraminal stenosis. There is mild central canal stenosis. There is also narrowing of the l ateral recesses, right greater than left which exerts mass effect upon the traversing bilateral S1 ne rve roots. IMPRESSION: 1. Severe lumbar and lower thoracic spondylosis.
== END 2021-07-12 08:01 | disposition home or self-care (01) ==
LOC: CHSIMG 08:02
PROVIDERS: PCP Internal Medicine; Visit Provider Internal Medicine
DX: M48.061 Spinal stenosis, lumbar region without neurogenic claudication (principal)
CPT/HCPCS: 72148

== ENCOUNTER 2021-09-19 08:02 | Outpatient (RCR) | payer MEDICARE, SELFPAY ==
--- NOTE | 2021-09-19 08:35 | PTOPEVAL ---
Thank you for referring Jaspal Ruggiero to [facility].? The patient is scheduled to be seen for therapy? __2__x/week for 10 visits. Please review, sign, date and return this plan of care GORGE. I agree with and certify that the following plan of care is medically necessary. Referring Physician Date Admitting Provider: Attending Provider: Megan Fernandez MD Referring Provider: *PT Outpatient Evaluation Start: 09/19/21 08:02 Freq: Status: Active Protocol: Document 09/19/21 08:02 FLORENTIN (Rec: 09/19/21 08:35 FLORENTIN [id number]) Therapy Assessment Status Assessment Status Assessment Status Evaluation Outpatient Past Medical History Neurological History Hx Neurological Disorders No Significant History Cardiovascular History Hx Cardiac Catheterization Yes: 2018? Hx Coronary Stent Yes: DR. BEY 1 STENT 2015?, SECOND STENT 2018? Hx Hypercholesterolemia Yes Hx Hypertension Yes Respiratory History Hx Respiratory Disorders No Significant History Gastrointestinal History Hx Cholecystectomy Yes Hx Polyps Yes Genitourinary History Hx Benign Prostatic Hyperplasia Yes Musculoskeletal History Hx Spinal Surgery Yes: AGE 30'S- Hematological History Hx Hematological Disorders No Significant History Endocrine History Hx Diabetes Yes: TYPE 2 HEENT History Hx Tonsillectomy Yes Integumentary History Hx Excision Skin Lesion Yes: BASAL CELL Hx Other Skin Disorders Yes: DRY SKIN Reproductive History Hx Reproductive Disorders No Significant History Psychosocial History Hx Psychiatric Disorders No Significant History Pain History History of Any Previous or Ongoing No Significant History Instance of Pain Anesthesia History Hx Anesthesia Reactions No Significant History Other History Hx Implanted Device Yes: HEARTS STENTS Evaluation Information Problem Diagnosis lumbar stenosis L2-3, L3-4 Onset 08/26/21 Subjective Information Pt. reports that he has been Query Text:As Reported By Patient/ having back pain for about 1 1 Family /2 years. He describes most pain above the right butt cheek. He states that he has had MRI and injection, but not much pain relief with the injection. He reports that he has difficulty getting up and down steps, has 5 steps to get into and out of the house. He states that he has
--- NOTE | 2021-10-27 20:10 | PTOPDC ---
Evaluation Information Assessment Status Discharge Diagnosis lumbar stenosis L2-3, L3-4 Onset 08/26/21 Subjective Information patient reports he feels a bit better overall. however, he reports he is not back to normal. he reports he is confident in his exercises at home, and would like to take a break from skilled PT for a bit. he reports he is scheduled to follow up and see his MD in the next few weeks and would like to wait to hear what he wants to do as well.
== END 2021-10-21 09:17 | disposition home or self-care (01) ==
LOC: CHSPT 08:02
PROVIDERS: PCP Internal Medicine; Visit Provider Neurological Surgery
DX: M48.061 Spinal stenosis, lumbar region without neurogenic claudication (principal)
CPT/HCPCS: 97014; 97110; 97112; 97140; 97161; G0283

== ENCOUNTER 2021-10-15 07:00 | Outpatient (CLI) | payer MEDICARE, SELFPAY ==
[2021-10-15 07:15] LABS: Hematocrit 33.8 % (37.0-46.0); Hemoglobin 11.2 g/dL (12.4-15.3); Immature Platelet Fraction Pct 3.6 % (1.0-7.0); Mean Corpuscular HGB Conc 33.1 g/dL (32.0-36.0); Mean Corpuscular Hemoglobin 32.4 pg (27.0-31.0); Mean Corpuscular Volume 97.7 fL (78.0-102.0); Mean Platelet Volume 11.4 fl (8.7-11.0); Platelet Count Result 57 K/mm3 (150-420); Red Blood Count 3.46 M/mm3 (4.70-6.10); Red Cell Distribution Width 14.7 % (11.6-14.4); White Blood Count 3.1 K/mm3 (4.8-10.8)
[2021-10-15 07:49] LABS: Band Neutrophils Percent 0 % (0-6); Eosinophils Absolute Manual 0.15 K/mm3 (0.02-0.5); Eosinophils Percent Manual 5 % (1-6); Lymphocytes Absolute Manual 1.11 K/mm3 (1.1-4.5); Lymphocytes Percent Manual 36 % (18-44); Monocytes Absolute Manual 0.27 K/mm3 (0.1-0.90); Monocytes Percent Manual 9 % (3-9); Neutrophils Absolute Manual 1.55 K/mm3 (1.3-6.7); Neutrophils Percent Manual 50 % (46-73); Total Cells Counted 100
[2021-10-15 07:50] LABS: Platelet Estimate Decreased (Adequate)
[2021-10-15 07:51] LABS: Alanine Aminotransferase 21 U/L (16-63); Alkaline Phosphatase 95 U/L (46-116); Anion Gap 8 mmol/L (8-16); Aspartate Amino Transferase 23 U/L (15-37); Bilirubin,Total 0.7 mg/dL (0.00-1.00); Blood Urea Nitrogen 28 mg/dL (7-18); Calcium 8.7 mg/dL (8.5-10.1); Carbon Dioxide 22 mmol/L (21-32); Chloride 108 mmol/L (98-108); Estimated Glomerular Filt Rate 43; Ferritin 113 ng/mL (26-388); Glucose 128 mg/dL (70-99); Iron 54 ug/dL (65-175); Osmolality Calculated 293 mOsm/kg (285-295); Potassium 4.5 mmol/L (3.5-5.1); Sodium 138 mmol/L (136-145); Total Protein 6.5 g/dL (6.4-8.2)
== END 2021-10-15 07:01 | disposition home or self-care (01) ==
PROVIDERS: PCP Internal Medicine; Visit Provider Internal Medicine
DX: D50.9 Iron deficiency anemia, unspecified (principal); G62.9 Polyneuropathy, unspecified; E11.21 Type 2 diabetes mellitus with diabetic nephropathy
CPT/HCPCS: 36415; 80053; 82728; 83036; 83540; 85025; 85055

== ENCOUNTER 2022-01-17 07:22 | Outpatient (CLI) | payer MEDICARE, SELFPAY ==
[2022-01-17 07:39] LABS: Basophils Absolute Auto 0.04 K/mm3 (0.00-0.10); Eosinophils Absolute Auto 0.22 K/mm3 (0.02-0.50); Eosinophils Percent Auto 5.3 % (1.0-6.0); Immature Granulocyte Absolute 0.01 K/mm3 (0.00-0.00); Immature Granulocyte Percent A 0.2 % (0.0-0.0); Immature Platelet Fraction Pct 2.7 % (1.0-7.0); Lymphocytes Absolute Auto 1.29 K/mm3 (1.10-4.50); Lymphocytes Percent Auto 30.9 % (18.0-42.0); Mean Corpuscular HGB Conc 32.3 g/dL (32.0-36.0); Mean Corpuscular Hemoglobin 32.1 pg (27.0-31.0); Mean Corpuscular Volume 99.4 fL (78.0-102.0); Mean Platelet Volume 11.3 fl (8.7-11.0); Monocytes Absolute Auto 0.45 K/mm3 (0.10-0.90); Monocytes Percent Auto 10.8 % (2.0-11.0); Neutrophils Absolute Auto 2.2 K/mm3 (1.7-7.2); Neutrophils Percent Auto 51.8 % (50.0-70.0); Platelet Count Result 74 K/mm3 (150-420); Red Blood Count 3.12 M/mm3 (4.70-6.10); Red Cell Distribution Width 14.3 % (11.6-14.4); White Blood Count 4.2 K/mm3 (4.8-10.8)
[2022-01-17 07:48] LABS: Hemoglobin A1C 5.1 % (<5.7)
[2022-01-17 08:08] LABS: Appearance Urine Cloudy (Clear); Color Urine Yellow (Yellow); Specific Grav Ur 1.015 (1.010-1.020)
[2022-01-17 08:09] LABS: Bilirubin Urine Negative (Negative); Blood Urine Negative (Negative); Glucose Urine UA Negative (Negative); Ketones Urine Negative (Negative); Nitrate Urine Negative (Negative); Protein Urine 1+ (Negative)
[2022-01-17 08:10] LABS: Add Urine Microscopic? YES; Bacteria Urine 2+ /hpf; Leukocyte Esterase Ur 3+ (Negative); RBC Urine None seen /hpf (0-2); Urobilinogen Urine Negative mg/dL (0.2-1.0); WBC Urine >75 /hpf (0-3)
[2022-01-17 10:29] LABS: Alanine Aminotransferase 19 U/L (16-63); Albumin Level 3.1 g/dL (3.4-5.0); Alkaline Phosphatase 107 U/L (46-116); Anion Gap 12 mmol/L (8-16); Aspartate Amino Transferase 19 U/L (15-37); Bilirubin,Total 0.5 mg/dL (0.00-1.00); Blood Urea Nitrogen 32 mg/dL (7-18); Calcium 8.9 mg/dL (8.5-10.1); Carbon Dioxide 22 mmol/L (21-32); Chloride 111 mmol/L (98-108); Cholesterol 111 mg/dL (0-200); Creatine Kinase 27 U/L (39-308); Estimated Glomerular Filt Rate 34; Ferritin 64 ng/mL (26-388); Free T3 1.95 pg/mL (2.18-3.98); Free T4 Free Thyroxine 1.11 ng/dL (0.76-1.46); Glucose 147 mg/dL (70-99); HDL Direct 43 mg/dL (40-60); Iron 30 ug/dL (65-175); LDL Cholesterol Calculated 48 mg/dL (<130); Osmolality Calculated 309 mOsm/kg (285-295); Potassium 4.8 mmol/L (3.5-5.1); Prostate Specific Antigen 6.4 ng/mL (< OR = 4.0); Sodium 145 mmol/L (136-145); Thyroid Stimulating Hormone 1.79 uIU/mL (0.36-3.74); Total Protein 6.6 g/dL (6.4-8.2); Triglycerides 98 mg/dL (0-150); Vitamin B12 891 pg/mL (193-986)
== END 2022-01-17 07:23 | disposition home or self-care (01) ==
LOC: CHSLAB 07:24
PROVIDERS: PCP Internal Medicine; Visit Provider Internal Medicine
DX: D69.6 Thrombocytopenia, unspecified (principal); D50.9 Iron deficiency anemia, unspecified; I10 Essential (primary) hypertension; G62.9 Polyneuropathy, unspecified; R97.20 Elevated prostate specific antigen [PSA]; E79.0 Hyperuricemia without signs of inflammatory arthritis and tophaceous disease
CPT/HCPCS: 36415; 80053; 80061; 81001; 82550; 82607; 82728; 83036; 83540; 84153; 84439; 84443; 84481; 84550; 85025; 85055

== ENCOUNTER 2022-01-23 12:48 | Emergency (ER) | payer MEDICARE, SELFPAY ==
[2022-01-23] VITALS (31 sets, daily range): BP systolic 88–130; BP diastolic 57–81; PULSE 58–71; RESP 13–21; TEMP 36.2–36.4; O2SAT 97–100
--- NOTE | ~2022-01-23 | XR_ITS ---
XR chest 1V portable DATE: 01/23/2022 13:44 INDICATION: Hypotensive episode. Weakness. TECHNIQUE: Portable AP chest on 01/23/2022 at 1353 hours COMPARISON: 06/17/2020 2 view chest FINDINGS: There is mild infiltrate or atelectasis in the lower lung zones. Relatively high diaphragm. Heart size is not optimally evaluated because of kyphotic portable AP projection. There is aortic calcification. No pleural effusion is evident. No pneumothorax. Osteopenia. Osteophytic change at the glenohumeral joints. Degenerative spurring and scoliosis of the thoracic spine. IMPRESSION: Mild infiltrate or atelectasis and lower lung zones Reviewed, dictated and finalized at location B. 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
--- NOTE | ~2022-01-23 | CT_ITS ---
EXAMINATION: CT brain wo con DATE: 01/23/2022 13:43 INDICATION: Weakness. Hypotension. TECHNIQUE: Computed tomography (CT) of the head was performed without intravenous contrast. The mA wa s adjusted according to patient size. Iterative reconstruction technique was employed. The dose-lengt h product was 605.33 mGy-cm. COMPARISON: None FINDINGS: There are scattered areas of low attenuation in the cerebral white matter, which is within normal limits for the patient's age. There is no intracranial hemorrhage, acute infarction, or abnorm al intracranial mass lesion. The ventricles are normal in size. There are likely changes of left ocul ar lens replacement surgery. There is mucosal thickening in the paranasal sinuses. There is thickenin g and sclerosis of the [place] of right maxillary sinus, consistent with chronic sinusitis. The mastoid air cells are normal. IMPRESSION: 1. Normal aging brain. 2. Chronic sinusitis. Reviewed, dictated and finalized at location A. [employer]
--- NOTE | ~2022-01-23 | CT_ITS ---
EXAMINATION: CT diagnostic chest wo con DATE: 01/23/2022 15:39 INDICATION: Left lung infiltrate TECHNIQUE: Computed tomography (CT) of the chest was performed without intravenous contrast. The dose -length product was 313.98 mGy-cm. Automated exposure control and iterative reconstruction technique were employed. COMPARISON: Chest dated 01/23/[address] dated 11/13/2027 FINDINGS: There is atherosclerosis no significant pleural or pericardial effusion. Borderline sized r ight paratracheal lymph node measures 10 mm short axis. There is atherosclerosis. There is been progr ession of coarse interstitial lung disease of the mid and lower lungs, consistent with chronic inters titial fibrosis. No endobronchial lesions. There is a 4 mm right upper lobe nodule, image 57. No susp icious significant pleural or pericardial effusion. There is splenomegaly. There is cirrhosis of the liver. There is mild mesenteric edema. Moderate thoracic spondylosis. No focal lytic or blastic lesio n. IMPRESSION: 1. Interval progression of chronic interstitial lung disease, consistent with pulmonary fibrosis. 2: 4 mm right upper lobe nodule, likely benign. Recommend follow-up low dose CT chest in 12 months. 3: Cirrhosis of the liver. Splenomegaly. Reviewed, dictated and finalized at location A. 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 Interval progression of chronic interstitial lung disease, consistent with p ulmonary fibrosis. 2: 4 mm right upper lobe nodule, likely benign. Recommend follow-up low dose CT chest in 12 months. 3: Cirrhosis of the liver. Splenomegaly.
--- NOTE | 2022-01-23 13:18 | ECG_ITS ---
Measurements Intervals Walker Rate: 65 P: 36 NC: 241 QRS: -20 QRSD: 148 T: -22 QT: 458 QTc: 477 Interpretive Statements SINUS RHYTHM WITH FIRST DEGREE AV BLOCK RIGHT BUNDLE BRANCH BLOCK BASELINE ARTIFACT- III, V2-V3 ABNORMAL ECG NO PREVIOUS ECG AVAILABLE FOR COMPARISON Electronically Signed On 01-23-2022 17:57:08 [facility] by Moy Dominguez D.O.
--- NOTE | 2022-01-23 13:40 | PC.NURSE ---
PT IS IN RADIOLOGY AT THIS TIME.
[2022-01-23 13:43] LABS: Hematocrit 27.3 % (37.0-46.0); Hemoglobin 8.8 g/dL (12.4-15.3); Immature Platelet Fraction Pct 5.6 % (1.0-7.0); Mean Corpuscular HGB Conc 32.2 g/dL (32.0-36.0); Mean Corpuscular Volume 99.3 fL (78.0-102.0); Mean Platelet Volume 12.1 fl (8.7-11.0); Platelet Count Result 51 K/mm3 (150-420); Red Blood Count 2.75 M/mm3 (4.70-6.10); Red Cell Distribution Width 14.4 % (11.6-14.4); White Blood Count 5.4 K/mm3 (4.8-10.8)
[2022-01-23] MEDS: SODIUM CHLORIDE 0.9% IV 1,000 ML 999 ML IV CONT (13:46)
[2022-01-23] MEDS: PANTOPRAZOLE SODIUM IV 40 MG VIAL IV PUSH (13:47)
[2022-01-23] MEDS: ONDANSETRON INJ 4 MG/2 ML VIAL IV PUSH (13:47)
[2022-01-23 14:03] LABS: Band Neutrophils Percent 7 % (0-6); Basophils Percent Manual 0 % (0-1); Eosinophils Percent Manual 0 % (1-6); Lactic Acid Reflex 3.6 mmol/L (0.4-2.0); Lymphocytes Absolute Manual 0.64 K/mm3 (1.1-4.5); Lymphocytes Percent Manual 12 % (18-44); Metamyelocytes Percent 1 %; Monocytes Percent Manual 2 % (3-9); Neutrophils Absolute Manual 4.59 K/mm3 (1.3-6.7); Neutrophils Percent Manual 78 % (46-73); Platelet Estimate Decreased (Adequate); Total Cells Counted 100
[2022-01-23 14:05] LABS: Alanine Aminotransferase 26 U/L (16-63); Albumin Level 2.3 g/dL (3.4-5.0); Alkaline Phosphatase 91 U/L (46-116); Anion Gap 9 mmol/L (8-16); Aspartate Amino Transferase 31 U/L (15-37); Bilirubin,Total 0.6 mg/dL (0.00-1.00); Blood Urea Nitrogen 43 mg/dL (7-18); Calcium 8.2 mg/dL (8.5-10.1); Carbon Dioxide 22 mmol/L (21-32); Chloride 104 mmol/L (98-108); Estimated CRCL calculation 22 ml/min; Estimated Glomerular Filt Rate 28; Glucose 197 mg/dL (70-99); NT Pro B Type Natriuretic Pept 1952 pg/mL (0-450); Osmolality Calculated 295 mOsm/kg (285-295); Potassium 4.2 mmol/L (3.5-5.1); Sodium 135 mmol/L (136-145); Total Protein 5.8 g/dL (6.4-8.2); Troponin I 19.6 ng/L (0.00-60.4)
[2022-01-23 14:15] LABS: Influenza A QL RT-PCR Negative (Negative); Influenza B QL RT-PCR Negative (Negative); SARS-CoV-2 RNA PCR Negative (Negative)
--- NOTE | 2022-01-23 14:41 | PC.NURSE ---
PT IS LYING ON STRETCHER IN EXAM ROOM AT THIS TIME WITH IVF INFUSING. NAD NOTED. PT DENIES ANY NEEDS OR COMPLAINTS. WILL CONTINUE TO MONITOR.
[2022-01-23] MEDS: SODIUM CHLORIDE 0.9% IV 500 ML 999 ML IV CONT (16:03)
--- NOTE | 2022-01-23 16:05 | PC.NURSE ---
pt has returned from radiology. ivf infusing as ordered without difficulty. pt was able to provide urine specimen. nad noted at this time. pt denies any needs or complaints. will continue to monitor.
[2022-01-23 16:23] LABS: Appearance Urine Cloudy (Clear); Bilirubin Urine Negative (Negative); Blood Urine 3+ (Negative); Glucose Urine UA Negative (Negative); Ketones Urine Negative (Negative); Leukocyte Esterase Ur 3+ (Negative); Nitrate Urine Negative (Negative); Protein Urine Trace (Negative); Specific Grav Ur 1.015 (1.010-1.020); Urobilinogen Urine 0.2 mg/dL (0.2-1.0)
[2022-01-23 16:27] LABS: Add Urine Microscopic? YES; Color Urine Dark Yellow (Yellow); Squamous Epithelial Cell Urine Few /hpf (Few); WBC Urine >75 /hpf (0-3)
[2022-01-23 16:28] LABS: Bacteria Urine 2+ /hpf
[2022-01-23 16:37] LABS: Reflex Lactic Acid Yes or No Add Lactic
--- NOTE | 2022-01-23 16:45 | ED.GENADULT ---
HPI - General Adult General Chief complaint: Unspecified Stated complaint: Dr Henriquez sent over for fluids low blood pressure Time Seen by Provider: 01/23/22 12:51 Source: patient and RN notes reviewed Mode of arrival: wheelchair Limitations: no limitations History of Present Illness complaint: low BP, Onset (ago): day(s) (1) Radiation: non-radiation Severity: mild Quality: other (pain-free) Relieving factors: none Exacerbating factors: none Related Data Home Medications Medication Instructions Recorded Confirmed allopurinol 100 mg tablet 100 mg PO DAILY 05/26/20 01/23/22 aspirin 81 mg tablet 81 mg PO DAILY 05/26/20 01/23/22 atorvastatin 40 mg tablet 20 mg PO DAILY 05/26/20 01/23/22 carvedilol 6.25 mg tablet 3.12 mg PO BID 05/26/20 01/23/22 clopidogrel 75 mg tablet 75 mg PO DAILY 05/26/20 01/23/22 folic acid 1 mg tablet 1 mg PO DAILY 05/26/20 01/23/22 losartan 50 mg tablet 50 mg PO BID 05/26/20 01/23/22 tamsulosin 0.4 mg capsule 0.4 mg PO BID 05/26/20 01/23/22 Allergies Allergy/AdvReac Type Severity Reaction Status Date / Time No Known Allergies Allergy Verified 01/23/22 13:10 Review of Systems Review of Systems: All systems reviewed & are unremarkable except as noted in HPI and below Constitutional: Constitutional: Reports no additional constitutional complaints and Reports weakness Eyes: Eyes: Reports no additional eye complaints ENT: Reports system reviewed and no additional complaints, except as documented Cardiovascular: Cardiovascular: Reports no additional cardiovascular complaints Respiratory: Respiratory: Reports no additional respiratory complaints Gastrointestinal: Gastrointestinal: Reports no additional gastrointestinal complaints Musculoskeletal: Musculoskeletal: Reports no additional musculoskeletal complaints Integumentary/Breasts: Skin/Breast: Reports system reviewed and no additional complaints, except as docu Neurologic: Reports system reviewed and no additional complaints, except as documented Psychiatric: Psychiatric: Reports no additional psychiatric complaints Endocrine: Endocrine: Reports no additional endocrine complaints Hematologic/Lymphatic: Hematologic/Lymphatic: Reports no additional hematologic/lymphatic complaints Allergic/Immunologic: Allergic/Immunologic: Reports no additional allergic/immunologic complaints PMFSH Past Medical History Medical History Acute UTI (urinary tract infection) CAD (coronary artery disease) Dehydration, mild Diabetes 1.5, managed as type 2 Hypertension Viral syndrome Surgical History Surgical History Stented coronary artery Social History Social History Smoking status: Never smoker Alcohol intake: former Substance use: never Substance use type: does not use Spiritual care concerns: No Exam Const: General: no acute distress and well nourished Nutritional Appearance: well nourished Orientation/consciousness: patient oriented x3 Limitations: no limitations HENMT: Head: normal to inspection Ears: external ears normal, TM's normal bilaterally and EAC's normal Face/Nose/Sinus: Normal external nose present, Normal nares present, normal facial exam and sinuses nontender Face and sinus: normal facial exam and sinuses nontender Mouth: Yes Normal oral and palatal mucosa present and Yes moist mucous membranes Teeth and gingiva: dentition normal Throat: posterior oropharynx normal Eyes: Conjunctivae: conjunctivae normal Pupils: Equal, round and reactive pupils present EOM: EOMs intact bilaterally Neck: Neck: normal visual inspection, no lymphadenopathy and no meningeal signs Chest: Chest palpation & inspection: normal inspection of the chest Resp: Effort & Inspection: normal respiratory effort Auscultation: clear to auscultation bilaterally Cardio: Rat
--- NOTE | 2022-01-23 17:23 | PC.NURSE ---
SPOKE WITH ERP ABOUT PT ELEVATED KIDNEY FUNCTION, VS, AND LAB VALUES, ERP REPORTS TO DC PT HOME AND HE IS TO FOLLOW UP WITH HIS PMD.
== END 2022-01-23 17:40 | disposition home or self-care (01) ==
PROVIDERS: Emergency Provider Emergency Medicine; PCP Internal Medicine
DX: N39.0 Urinary tract infection, site not specified (principal); B34.9 Viral infection, unspecified; E86.0 Dehydration; I25.10 Atherosclerotic heart disease of native coronary artery without angina pectoris; E13.9 Other specified diabetes mellitus without complications
CPT/HCPCS: 36415; 70450; 71045; 71250; 80053; 81001; 83605; 83880; 84484; 85025; 85055; 87636; 93005; 96361; 96365; 96375; 99284; C9113; J0696; J2405; J7030; J7040

== ENCOUNTER 2022-01-26 08:29 | Outpatient (CLI) | payer MEDICARE, SELFPAY ==
[2022-01-26 08:50] LABS: Basophils Absolute Auto 0.05 K/mm3 (0.00-0.10); Basophils Percent Auto 1.2 % (0.0-1.0); Eosinophils Absolute Auto 0.19 K/mm3 (0.02-0.50); Eosinophils Percent Auto 4.4 % (1.0-6.0); Hematocrit 30.5 % (37.0-46.0); Hemoglobin 9.8 g/dL (12.4-15.3); Immature Granulocyte Absolute 0.03 K/mm3 (0.00-0.00); Immature Granulocyte Percent A 0.7 % (0.0-0.0); Immature Platelet Fraction Pct 3.5 % (1.0-7.0); Immature Reticulocyte Fraction 9.6 % (2.0-16.52); Lymphocytes Absolute Auto 1.15 K/mm3 (1.10-4.50); Lymphocytes Percent Auto 26.5 % (18.0-42.0); Mean Corpuscular HGB Conc 32.1 g/dL (32.0-36.0); Mean Corpuscular Hemoglobin 31.6 pg (27.0-31.0); Mean Corpuscular Volume 98.4 fL (78.0-102.0); Mean Platelet Volume 12.1 fl (8.7-11.0); Monocytes Absolute Auto 0.39 K/mm3 (0.10-0.90); Neutrophils Absolute Auto 2.5 K/mm3 (1.7-7.2); Neutrophils Percent Auto 58.2 % (50.0-70.0); Platelet Count Result 62 K/mm3 (150-420); Reticulocyte Hemoglobin Conten 29.7 pg (28.0-35.0); Reticulocyte Percent 1.19 % (0.50-1.50); Reticulocytes Absolute 0.04 M/mm3 (0.02-0.1); White Blood Count 4.3 K/mm3 (4.8-10.8)
[2022-01-26 09:14] LABS: INR 1.1; Partial Thromboplastin Time 29.1 SEC (23.90-30.70); Prothrombin Time 12.2 Seconds (9.50-12.10)
[2022-01-26 09:29] LABS: Alanine Aminotransferase 24 U/L (16-63); Albumin Level 2.9 g/dL (3.4-5.0); Alkaline Phosphatase 114 U/L (46-116); Anion Gap 11 mmol/L (8-16); Aspartate Amino Transferase 19 U/L (15-37); Bilirubin,Total 0.6 mg/dL (0.00-1.00); Blood Urea Nitrogen 30 mg/dL (7-18); Calcium 8.6 mg/dL (8.5-10.1); Carbon Dioxide 22 mmol/L (21-32); Chloride 108 mmol/L (98-108); Estimated Glomerular Filt Rate 34; Ferritin 85 ng/mL (26-388); Glucose 151 mg/dL (70-99); Iron 33 ug/dL (65-175); Osmolality Calculated 301 mOsm/kg (285-295); Potassium 4.2 mmol/L (3.5-5.1); Sodium 141 mmol/L (136-145); Total Protein 6.3 g/dL (6.4-8.2)
== END 2022-01-26 08:30 | disposition home or self-care (01) ==
LOC: CHSLAB 08:31
PROVIDERS: PCP Internal Medicine; Visit Provider Internal Medicine
DX: K92.1 Melena (principal); N18.4 Chronic kidney disease, stage 4 (severe)
CPT/HCPCS: 36415; 80053; 82728; 83540; 85025; 85046; 85055; 85610; 85730

== ENCOUNTER 2022-03-04 07:29 | Outpatient (CLI) | payer MEDICARE, SELFPAY ==
[2022-03-04 07:42] LABS: Hematocrit 33.3 % (37.0-46.0); Hemoglobin 11.1 g/dL (12.4-15.3); Mean Corpuscular HGB Conc 33.3 g/dL (32.0-36.0); Mean Corpuscular Hemoglobin 31.3 pg (27.0-31.0); Mean Corpuscular Volume 93.8 fL (78.0-102.0); Mean Platelet Volume 11.7 fl (8.7-11.0); Platelet Count Result 61 K/mm3 (150-420); Red Blood Count 3.55 M/mm3 (4.70-6.10); Red Cell Distribution Width 14.6 % (11.6-14.4); White Blood Count 3.7 K/mm3 (4.8-10.8)
[2022-03-04 08:07] LABS: Total Cells Counted 100
[2022-03-04 08:08] LABS: Band Neutrophils Percent 0 % (0-6); Eosinophils Absolute Manual 0.18 K/mm3 (0.02-0.5); Eosinophils Percent Manual 5 % (1-6); Lymphocytes Absolute Manual 1.25 K/mm3 (1.1-4.5); Lymphocytes Percent Manual 34 % (18-44); Monocytes Absolute Manual 0.48 K/mm3 (0.1-0.90); Monocytes Percent Manual 13 % (3-9); Neutrophils Absolute Manual 1.77 K/mm3 (1.3-6.7); Neutrophils Percent Manual 48 % (46-73)
[2022-03-04 08:09] LABS: Platelet Estimate Decreased (Adequate)
[2022-03-04 08:25] LABS: Anion Gap 7 mmol/L (8-16); Blood Urea Nitrogen 20 mg/dL (7-18); Calcium 8.6 mg/dL (8.5-10.1); Carbon Dioxide 26 mmol/L (21-32); Chloride 105 mmol/L (98-108); Estimated Glomerular Filt Rate 42; Ferritin 92 ng/mL (26-388); Glucose 117 mg/dL (70-99); Iron 43 ug/dL (65-175); Osmolality Calculated 289 mOsm/kg (285-295); Potassium 4.3 mmol/L (3.5-5.1); Sodium 138 mmol/L (136-145)
== END 2022-03-04 07:30 | disposition home or self-care (01) ==
LOC: CHSLAB 07:31
PROVIDERS: PCP Internal Medicine; Visit Provider Internal Medicine
DX: N18.4 Chronic kidney disease, stage 4 (severe) (principal)
CPT/HCPCS: 36415; 80048; 82728; 83540; 85025; 85055

== ENCOUNTER 2022-03-09 01:07 | Day surgery (SDC) | payer MEDICARE, SELFPAY ==
[2022-02-22 12:54] VITALS: BMI 28.0
--- NOTE | 2022-03-03 09:06 | PC.NURSE ---
Received clearance from Dr. Garcia to hold Plavix x5 days, Plavix is not listed on pt. medication list given by patient during Pat call. Pt called to inquire on this, pt states someone, maybe Dr. Henriquez took me off this , Dr. Gresham office called, pt was told to hold Plavix due to occult pos. stool the last of 2021, pt called and I explained this to the patient. He states he found his paper and the last dose was taken on 01/24/2022. Meds reviewed with patient regarding what he should take the day of his procedure. Dr. Castro office called regarding Plavix being held since 01/24/2022, Pt does not list ASA on his list of meds. Pt does have appt to see DR. Garcia on 03/07/2021.
--- NOTE | 2022-03-08 09:30 | P.PNAN_ITS ---
Anes - Initial Pre Proc Eval Procedure: Operation Date: 03/09/22 09:00 Proposed Procedures p Esophagogastroduodenoscopy & Colonoscopy - Marico Park DO Date/Time: 03/08/22 09:30 Surgeon: Marcio Park DO Pre Op Diagnosis: JIMENA, Occult Positive Patient Data Age: 86 Gender: M Height: 1.75 m Weight: 86 kg Allergies Allergy/AdvReac Type Severity Reaction Status Date / Time No Known Allergies Allergy Verified 03/09/22 08:18 Home Medications Medication Instructions Recorded Confirmed Type allopurinol 100 mg tablet 100 mg PO DAILY 05/26/20 02/22/22 History atorvastatin 40 mg tablet 20 mg PO DAILY 05/26/20 02/22/22 History carvedilol 6.25 mg tablet 3.12 mg PO BID 05/26/20 02/22/22 History folic acid 1 mg tablet 1 mg PO DAILY 05/26/20 02/22/22 History tamsulosin 0.4 mg capsule 0.4 mg PO BID 05/26/20 02/22/22 History ferrous sulfate 134 mg (27 mg 134 mg PO DAILY 02/22/22 02/22/22 History iron) tablet Patient hx anesthesia problems: none Family hx anesthesia problems: none Results Review: All pre-operative results and documents have been reviewed as part of the pre- operative evaluation. [facility] Past Medical History Medical History (Updated 03/08/22 @ 09:30 by David Gomez DO) Acute UTI (urinary tract infection) CAD (coronary artery disease) Dehydration, mild Diabetes 1.5, managed as type 2 Hyperlipidemia Hypertension Viral syndrome Surgical History Surgical History (Updated 03/08/22 @ 09:30 by David Gomez DO) Stented coronary artery 2016, and 2018 Social History Social History Smoking status: Never smoker Alcohol intake: never Substance use: never Substance use type: does not use Living arrangements: with family Spiritual care concerns: No Anes - Eval Final PreProcedure Day of Procedure 03/08/22 09:30 Patient weight: overweight Heart: regular rate and rhythm Lungs: clear to auscultation Airway: Mallampati scale class II and special considerations poor dentition Neurological: alert and oriented Last oral intake: >/= 8 hours ASA classification: III Emergent: no Anesthetic plan: proceed Anesthesia type and monitoring: general GIVS and standard monitoring Results Review: All pre-operative results and documents have been reviewed as part of the pre- operative evaluation. Informed Consent: The patient's anesthetic plan and its attendant risks and benefits were discussed with the patient/family/POA. Questions were solicited and answers provided to the satisfaction of the patient/family/POA.
[2022-03-09 08:20] VITALS: BP 113/54; PULSE 77; RESP 19; TEMP 36.5; O2SAT 95
[2022-03-09] MEDS: LACTATED RINGERS 1,000 ML 150 ML IV CONT (08:35)
--- NOTE | 2022-03-09 08:54 | PM.IMHP ---
H&P: HPI History of Present Illness Date/Time: 03/09/22 08:54 Chief Complaint: iron deficiency anemia Narrative: this is an 86-year-old man who presents for EGD and colonoscopy. His last colonoscopy was 2 years ago and no polyps were noted. Patient has had some melena. He had an occult stool sample positive. He denies family history of colon cancer. Review of Systems Review of Systems: All systems reviewed & are unremarkable except as noted in HPI and below Constitutional: Constitutional: Denies chills, Denies fever(s), Denies headache(s) and Denies weight loss Eyes: Eyes: Denies change in vision ENT: Denies dizziness, Denies headache(s), Denies neck mass and Denies throat swelling Cardiovascular: Cardiovascular: Denies chest pain, Denies lightheadedness and Denies dyspnea Respiratory: Respiratory: Denies cough, Denies dyspnea and Denies wheezing Gastrointestinal: Gastrointestinal: Denies abdominal pain, Denies change in bowel habits, Denies nausea and Denies vomiting Genitourinary: Genitourinary: Denies hematuria and Denies dysuria Musculoskeletal: Musculoskeletal: Reports as per HPI Integumentary/Breasts: Skin/Breast: Reports as per HPI Neurologic: Denies dizziness and Denies headache(s) Allergic/Immunologic: Allergic/Immunologic: Denies throat swelling and Denies wheezing PMFSH Past Medical History Medical History (Updated 03/09/22 @ 08:55 by Marcio Park DO) Acute UTI (urinary tract infection) CAD (coronary artery disease) Dehydration, mild Diabetes 1.5, managed as type 2 Hyperlipidemia Hypertension Viral syndrome Surgical History Surgical History (Updated 03/08/22 @ 09:30 by David Gomez DO) Stented coronary artery 2016, and 2018 Social History Social History Smoking status: Never smoker Alcohol intake: never Substance use: never Substance use type: does not use Living arrangements: with family Spiritual care concerns: No Meds Home Medications and Allergies Home Medications Medication Instructions Recorded Confirmed Type allopurinol 100 mg tablet 100 mg PO DAILY 05/26/20 02/22/22 History atorvastatin 40 mg tablet 20 mg PO DAILY 05/26/20 02/22/22 History carvedilol 6.25 mg tablet 3.12 mg PO BID 05/26/20 02/22/22 History folic acid 1 mg tablet 1 mg PO DAILY 05/26/20 02/22/22 History tamsulosin 0.4 mg capsule 0.4 mg PO BID 05/26/20 02/22/22 History ferrous sulfate 134 mg (27 mg 134 mg PO DAILY 02/22/22 02/22/22 History iron) tablet Allergies Allergy/AdvReac Type Severity Reaction Status Date / Time No Known Allergies Allergy Verified 03/09/22 08:18 Vital Signs Vital Signs - 24 hr 03/09/22 08:20 Temperature 36.5 C Pulse Rate 77 Respiratory Rate 19 Blood Pressure 113/54 L Pulse Oximetry 95 Oxygen Delivery Room Air Exam Const: General: no acute distress and alert Orientation/consciousness: patient oriented x3 HENMT: Head: normocephalic and atraumatic Ears: hearing grossly normal bilaterally Face/Nose/Sinus: Normal nares present Mouth: Yes Normal oral and palatal mucosa present Eyes: Periorbital: periorbital findings normal Sclera: sclerae normal EOM: EOMs intact bilaterally Neck: Neck: normal visual inspection, no lymphadenopathy and trachea midline Chest: Chest palpation & inspection: normal inspection of the chest Resp: Effort & Inspection: normal respiratory effort Auscultation: clear to auscultation bilaterally Cardio: Jugular venous distension: no JVD Rate: regular rate Rhythm: regular rhythm Heart sounds: S1 normal heart sound present and S2 normal heart sound present Peripheral pulses: Peripheral pulses 2+ throughout GI: Inspection: normal to inspection GI Palp: Yes Soft to palpation, No Tenderness to palpation present (GI), No Guarding due to palpation present (GI) and No Rebound tenderness present Percussion: Yes normal to percussion Auscultatio
--- NOTE | 2022-03-09 09:12 | SUR.OPER ---
EGD start 908 end 913, Colonoscopy start 919 end 932.
[2022-03-09 09:37] VITALS: BP 81/52; PULSE 68; RESP 19; O2SAT 97
[2022-03-09 09:47] VITALS: BP 88/64; PULSE 66; RESP 18; O2SAT 98
[2022-03-09 09:57] VITALS: BP 106/60; PULSE 68; RESP 16; O2SAT 97
== END 2022-03-09 10:13 | disposition home or self-care (01) ==
PROVIDERS: PCP Internal Medicine; Visit Provider Surgery
PROC: 0DJ08ZZ Inspection of Upper Intestinal Tract, Via Natural or Artificial Opening Endoscopic (ICD-10-PCS; CPT 43235; principal; 2022-03-09 09:00)
DX: R19.5 Other fecal abnormalities (principal); D50.9 Iron deficiency anemia, unspecified; K57.30 Diverticulosis of large intestine without perforation or abscess without bleeding; Q27.33 Arteriovenous malformation of digestive system vessel; K92.2 Gastrointestinal hemorrhage, unspecified; K44.9 Diaphragmatic hernia without obstruction or gangrene; I25.10 Atherosclerotic heart disease of native coronary artery without angina pectoris; E13.9 Other specified diabetes mellitus without complications; I10 Essential (primary) hypertension; E78.5 Hyperlipidemia, unspecified; Z95.5 Presence of coronary angioplasty implant and graft
CPT/HCPCS: 45378; 43235; J2370; J2704; J7120

== ENCOUNTER 2022-03-12 12:21 | Emergency (ER) | payer MEDICARE, SELFPAY ==
[2022-03-12] VITALS (42 sets, daily range): BP systolic 90–168; BP diastolic 71–104; PULSE 97–114; RESP 16–38; TEMP 36.8–37.2; O2SAT 89–100
--- NOTE | ~2022-03-12 | CT_ITS ---
EXAMINATION: CT chest abdomen pelvis wo con DATE: 03/12/2022 13:23 INDICATION: Cough. Chest and right upper quadrant abdominal pain. Abdominal distention. Blood in stoo l. Recent colonoscopy. TECHNIQUE: Computed tomography (CT) of the chest, abdomen, and pelvis was performed without intraveno us contrast. Automated exposure control and iterative reconstruction technique were employed. Exam do se: 1344.23 mGy-cm total exam DLP. COMPARISON: 01/23/2022 CT chest 11/12/2017 CT abdomen FINDINGS: CHEST CT: Thoracic aortic and prominent coronary artery as well as great vessel calcifications. No thoracic aor tic aneurysm. Heart size is within normal range. Small pericardial effusion. Mild to moderate right pleural effusio n, including some new loculated fluid in the posterior right upper chest.. Small left pleural effusio n.. There is prominent atelectasis/consolidation of the right lower lobe with narrowing of the right lowe r lobe bronchus. Numerous right lower lobe air bronchograms. There is groundglass infiltrate or atelectasis in the anteromedial left upper lobe and mild infiltrat e or atelectasis in the dependent lingula and to a greater extent the left lower lobe. ABDOMEN/PELVIS CT: There is surface nodularity of the liver consistent with cirrhosis. Splenic size is within normal reid its. There is mild to moderate ascites. No hepatic or splenic or pancreatic space-occupying mass lesion is evident. 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 No adrenal mass lesion. Asymmetric left renal atrophy. Left renal cysts, measuring up to 1.9 cm. Multiple urinary bladder diverticula. There is prostate enlargement and calcification. Abdominal aortic calcification. Calcification at the origins of the celiac and superior mesenteric an d renal arteries. No abdominal aortic aneurysm. No intraperitoneal or retroperitoneal or pelvic mass lesion or adenopathy is noted. Right fat-containing inguinal hernia. Diverticulosis of the colon. No CT evidence of diverticulitis. No bowel obstruction or intraperitonea l free air is detected. Degenerative changes of the lower cervical, thoracic and lumbar spine, including degenerative disc di sease of lower cervical spine, diffuse idiopathic skeletal hyperostosis of the thoracic spine and sev ere degenerative disc disease throughout the lumbar and lumbosacral spine. IMPRESSION: Bilateral pulmonary infiltrates/atelectasis, most prominent in the right lower lobe Bilateral pleural effusions, larger on the right Small pericardial effusion Cirrhosis Asymmetric left renal atrophy. Left renal cyst. Bladder diverticula Prostate enlargement and calcification Diverticulosis of the colon; no evidence of diverticulitis Reviewed, dictated and finalized at Location A. Reviewed, dictated and finalized at location A. S SETTER
--- NOTE | 2022-03-12 12:27 | ED.GENADULT ---
HPI - General Adult General Chief complaint: Chest Pain Stated complaint: ambulance Time Seen by Provider: 03/12/22 12:26 History of Present Illness HPI narrative: 86-year-old white male complains of right rib pain this started at 1:00 a.m. this morning woke him up. He has had a cough productive of clear sputum the last 2 days. Has had some small amount of blood in his sputum a couple of times. His history of heart disease and has had 2 stents EMS stated his blood sugar was 250 he is not on anything for his diabetes. His respirations were 20 his pulse was 94 EKG showed right bundle-branch block and ischemia age indeterminate. So also has some sore throat. Private doctor is Dr. Morse. Three days ago he had upper and lower endoscopy. Patient said he saw his brick setter 6 days ago he was doing fine at that time except he has not had a good appetite for a long time. He has had a cough for few days he has had some hemoptysis small amounts x2 and then more this morning. Denies any shortness of breath hurts when he coughs or moves on his right lower chest wall and upper abdomen. He had a EGD and a colonoscopy 5 days ago said all the found was a hiatal hernia. Says it also hurts his right upper quadrant when he eats. He had a bagel for breakfast this morning. Denies any nausea or vomiting. Patient stated he has had some black stools and blood in his stool over the last week. Related Data Home Medications Medication Instructions Recorded Confirmed allopurinol 100 mg tablet 100 mg PO DAILY 05/26/20 03/12/22 atorvastatin 40 mg tablet 20 mg PO DAILY 05/26/20 03/12/22 carvedilol 6.25 mg tablet 25 mg PO BID 05/26/20 03/12/22 folic acid 1 mg tablet 1 mg PO DAILY 05/26/20 03/12/22 tamsulosin 0.4 mg capsule 0.8 mg PO BID 05/26/20 03/12/22 ferrous sulfate 134 mg (27 mg 134 mg PO DAILY 02/22/22 03/12/22 iron) tablet aspirin 81 mg tablet 81 mg PO DAILY 03/12/22 03/12/22 furosemide 20 mg tablet (Lasix) 20 mg PO DAILY 03/12/22 03/12/22 glimepiride 1 mg tablet 0.5 mg PO DAILY 03/12/22 03/12/22 losartan 50 mg tablet 50 mg PO DAILY 03/12/22 03/12/22 Allergies Allergy/AdvReac Type Severity Reaction Status Date / Time No Known Allergies Allergy Verified 03/09/22 08:18 Review of Systems Constitutional: Constitutional: Reports no additional constitutional complaints, Denies chills, Denies fatigue, Denies fever(s) and Denies weakness Eyes: Eyes: Reports no additional eye complaints ENT: Reports system reviewed and no additional complaints, except as documented, Denies dizziness and Denies epistaxis Cardiovascular: Cardiovascular: Reports as per HPI, Reports no additional cardiovascular complaints and Reports chest pain Respiratory: Respiratory: Reports as per HPI, Reports no additional respiratory complaints, Denies chest congestion, Reports cough, Denies dyspnea and Denies wheezing Gastrointestinal: Gastrointestinal: Reports as per HPI, Reports no additional gastrointestinal complaints, Reports abdominal pain, Denies constipation, Denies diarrhea, Denies nausea and Denies vomiting Genitourinary: Genitourinary: Reports no additional male genitourinary complaints, Denies oliguria and Denies dysuria Musculoskeletal: Musculoskeletal: Reports no additional musculoskeletal complaints, Denies back pain, Denies myalgias and Denies arthralgias Integumentary/Breasts: Skin/Breast: Denies pruritus and Denies erythema Neurologic: Reports system reviewed and no additional complaints, except as documented, Denies dizziness and Denies headache(s) Endocrine: Endocrine: Denies fatigue [facility] Past Medical History Medical History Acute UTI (urinary tract infection) CAD (coronary artery disease) Dehydration, mild Diabetes 1.5, managed as type 2 Hyperlipidemia Hypertension Viral syndrome Surgical History Surgical History Stented coronary arter
--- NOTE | 2022-03-12 12:35 | ECG_ITS ---
Measurements Intervals [place] Rate: 105 P: PA: 0 QRS: -26 QRSD: 166 T: -5 QT: 358 QTc: 475 Interpretive Statements ATRIAL FIBRILLATION WITH RAPID VENTRICLAR RESPONSE VENTRICULAR PREMATURE COMPLEX RIGHT BUNDLE BRANCH BLOCK BASELINE ARTIFACT- I, II, III, AVR, AVL, AVF, V1-V6 ABNORMAL ECG COMPARED TO ECG 01/23/2022 13:55:51 ATRIAL FIBRILLATION NOW PRESENT Electronically Signed On 03-12-2022 14:09:18 ENLISTED AIRCREW/AERIAL OBSERVER/GUNNER by Moy Dominguez D.O.
[2022-03-12] MEDS: ACETAMINOPHEN 500 MG TABLET 1000 MG PO (12:58)
[2022-03-12] MEDS: MORPHINE SULFATE (*CRX) 2 MG/ML INJ IV PUSH ×2 (12:59→14:06)
--- NOTE | 2022-03-12 13:26 | PC.NURSE ---
PT RETURN FROM CT. AND DAUGHTER IN WITH PT. CALL DARNELL IN REACH. PER DISCHARGE PAPERS FROM [facility]. DR CHUNG PERFORMED EGD ON 03-09-22
[2022-03-12 13:59] LABS: Hematocrit 38.3 % (37.0-46.0); Hemoglobin 12.9 g/dL (12.4-15.3); Immature Platelet Fraction Pct 3.6 % (1.0-7.0); Mean Corpuscular HGB Conc 33.7 g/dL (32.0-36.0); Mean Corpuscular Hemoglobin 30.6 pg (27.0-31.0); Mean Corpuscular Volume 90.8 fL (78.0-102.0); Mean Platelet Volume 12.1 fl (8.7-11.0); Platelet Count Result 91 K/mm3 (150-420); Red Blood Count 4.22 M/mm3 (4.70-6.10); Red Cell Distribution Width 14.9 % (11.6-14.4); White Blood Count 10.8 K/mm3 (4.8-10.8)
[2022-03-12 14:10] LABS: Alanine Aminotransferase 18 U/L (16-63); Albumin Level 2.3 g/dL (3.4-5.0); Alkaline Phosphatase 131 U/L (46-116); Anion Gap 9 mmol/L (8-16); Aspartate Amino Transferase 22 U/L (15-37); Bilirubin,Total 1.6 mg/dL (0.00-1.00); Blood Urea Nitrogen 47 mg/dL (7-18); Calcium 8.8 mg/dL (8.5-10.1); Carbon Dioxide 24 mmol/L (21-32); Chloride 99 mmol/L (98-108); Glucose 256 mg/dL (70-99); Osmolality Calculated 295 mOsm/kg (285-295); Potassium 3.3 mmol/L (3.5-5.1); Sodium 132 mmol/L (136-145); Total Protein 6.8 g/dL (6.4-8.2); Troponin I 24.8 ng/L (0.00-60.4)
[2022-03-12 14:12] LABS: INR 1.1; Partial Thromboplastin Time 29.1 SEC (23.90-30.70); Prothrombin Time 11.8 Seconds (9.50-12.10)
[2022-03-12 14:14] LABS: Estimated CRCL calculation 25 ml/min; Estimated Glomerular Filt Rate 36
[2022-03-12 14:16] LABS: D Dimer 12.17 mg/L (0.19-0.50)
[2022-03-12 14:37] LABS: Influenza A QL RT-PCR Negative (Negative); Influenza B QL RT-PCR Negative (Negative); SARS-CoV-2 RNA PCR Negative (Negative)
[2022-03-12 14:38] LABS: RSV RNA, RT-PCR Negative (Negative)
--- NOTE | 2022-03-12 15:04 | PC.NURSE ---
pt resting per cot, family members in and out. call grayson in reach.
[2022-03-12] MEDS: POTASSIUM BICARBONATE 25 MEQ TABEF 50 MEQ PO (15:09)
[2022-03-12] MEDS: IPRATROPIUM 0.5 MG/ALBUTEROL SULFATE 2.5 MG AMPUL.NEB 3 ML INHALATION (15:09)
[2022-03-12] MEDS: ENOXAPARIN 100 MG/ML SYRINGE 80 MG SUB-Q (15:10)
[2022-03-12 16:19] LABS: Add Urine Microscopic? YES; Bilirubin Urine Negative (Negative); Blood Urine 2+ (Negative); Color Urine Yellow (Yellow); Glucose Urine UA Negative (Negative); Ketones Urine Negative (Negative); Leukocyte Esterase Ur 2+ (Negative); Nitrate Urine Positive (Negative); Protein Urine 1+ (Negative); Urobilinogen Urine 0.2 mg/dL (0.2-1.0)
[2022-03-12 16:27] LABS: Amorphous Sediment Urine Moderate; Appearance Urine Cloudy (Clear); Bacteria Urine 4+ /hpf; Mucus Urine Few /lpf; RBC Urine 0-2 /hpf (0-2); Squamous Epithelial Cell Urine Many /hpf (Few)
--- NOTE | 2022-03-12 17:06 | PC.NURSE ---
report to [facility] staff. assisted with pt transfer to ems cot. pt alert and oriented. pale. positioned in position of comfort. pt satisfied with positioning. departed facility at 1702
--- NOTE | 2022-03-12 17:16 | PC.NURSE ---
, JOSEFINA CALLED AND NOTIFIED PT DEPARTED FROM [facility].
--- NOTE | 2022-03-15 16:10 | PC.NURSE ---
final urine culture reviewed. mixed genital mae isolated. these superficial bacteria are not indicative of a UTI. no change in plan of care.
--- NOTE | 2022-03-20 14:42 | PC.NURSE ---
final blood culture reports x2 reviewed. no growth after 5 days. no change in plan of care.
== END 2022-03-12 17:09 | disposition short-term general hospital (02) ==
PROVIDERS: Emergency Provider Emergency Medicine; PCP Internal Medicine
DX: I48.91 Unspecified atrial fibrillation (principal); J18.9 Pneumonia, unspecified organism; J90 Pleural effusion, not elsewhere classified; I31.39 Other pericardial effusion (noninflammatory); R07.9 Chest pain, unspecified; I25.10 Atherosclerotic heart disease of native coronary artery without angina pectoris; I10 Essential (primary) hypertension; E78.5 Hyperlipidemia, unspecified; E13.9 Other specified diabetes mellitus without complications; Z95.5 Presence of coronary angioplasty implant and graft; Z79.82 Long term (current) use of aspirin; Z79.84 Long term (current) use of oral hypoglycemic drugs; Z20.822 Contact with and (suspected) exposure to COVID-19
CPT/HCPCS: 36415; 71250; 74176; 80053; 81001; 84484; 85027; 85055; 85380; 85610; 85730; 87040; 87086; 87088; 87637; 93005; 94640; 96365; 96367; 96372; 96375; 96376; 99285; A9270; J0456; J0696; J1650; J2270

== ENCOUNTER 2022-03-12 17:46 | Inpatient (IN) | payer MEDICARE, SELFPAY ==
--- NOTE | ~2022-03-12 | CT_ITS ---
EXAMINATION:CT diagnostic chest wo con DATE: 03/21/2022 12:23 INDICATION: Pleural effusion. TECHNIQUE: Computed tomography (CT) of the chest was performed without intravenous contrast. Automate d exposure control and iterative reconstruction technique were employed. The dose-length product (DLP ) was 290.71 mGy-cm. COMPARISON: Chest CT 03/12/2022, 01/23/22 FINDINGS: There is a moderate-sized loculated right pleural effusion. There is a small left pleural e ffusion. There are airspace opacities with volume loss and air bronchograms involving right middle lo be and right lower lobe. There is mild dependent atelectasis in right upper lobe. There are groundgla ss opacities in left upper lobe. Again seen is chronic peripheral septal thickening in the the lungs. There is mild atelectasis in left lower lobe and lingula. There is left atrial enlargement of the he art. There are coronary artery calcifications. No pericardial effusion. There is a mildly enlarged ri ght paratracheal lymph node. The liver demonstrates surface nodularity, consistent with cirrhosis. Pa rtially visualized is splenomegaly. There is a small volume of ascites. There is fat stranding in the abdomen, consistent with edema. There is severe thoracic spondylosis. IMPRESSION: 1. Moderate-sized loculated right pleural effusion and small left pleural effusion, stable from 2022. 2. Persistent airspace opacities with volume loss in right middle lobe and right lower lobe, consiste nt with atelectasis without or with superimposed pneumonia. 3. Worsened groundglass opacities in left upper lobe, likely mild pulmonary edema. 4. Cardiomegaly. 5. Cirrhosis of the liver with portal venous hypertension. 6. Small volume of ascites. Reviewed, dictated and finalized at location A. RETE BUILDINGS ASSEMBLER IMPRESSION: 1. Moderate-sized loculated right pleural effusion and small left pleural effus ion, stable from 03/12/2022. 2. Persistent airspace opacities with volume loss in right middle lobe and righ t lower lobe, consistent with atelectasis without or with superimposed pneumoni a. 3. Worsened groundglass opacities in left upper lobe, likely mild pulmonary laura ma. 4. Cardiomegaly. 5. Cirrhosis of the liver with portal venous hypertension. 6. Small volume of ascites.
--- NOTE | ~2022-03-12 | US_ITS ---
US abdomen limited INDICATION: Abdominal pain PROCEDURE: Realtime right upper abdominal ultrasound. COMPARISON: No prior studies for comparison. FINDINGS: Pancreas obscured by bowel gas. Liver echotexture is coarse and heterogeneous, consistent with fatty infiltration. Nodular liver surface, compatible with cirrhosis. Portal vein not visualize d. Gallbladder is surgically absent. Common bile duct not visualized.. No sonographic Lew's sign. IMPRESSION: 1: Cirrhosis of the liver with fatty infiltration. 2: Limited study. Reviewed, dictated and finalized at location A. MAN DRIVER
--- NOTE | ~2022-03-12 | XR_ITS ---
EXAMINATION: [id number] DATE: 03/17/2022 12:49 INDICATION: Status post right thoracentesis TECHNIQUE: frontal view of the chest was obtained. COMPARISON: Chest radiograph dated 03/16/2022 at 5:34 PM FINDINGS: Decrease in size of a small right pleural effusion and improvement in opacities at the right lower manju ng zone most likely associated atelectasis although differential includes pneumonia. Persistent massl more opacity right apex which on prior CT corresponds to a small loculated component of the effusion. No pneumothorax or left-sided pleural effusion. Heart size is normal. IMPRESSION: 1. Decreased small right pleural effusion post thoracentesis with persistent small loculated componen t at the right apex. 2. Decreased opacities at the right lower lung zone which could represent associated atelectasis or p neumonia. Reviewed, dictated and finalized at location A. NESS SERVICES SALES REPRESENTATIVE IMPRESSION: 1. Decreased small right pleural effusion post thoracentesis with persistent sm all loculated component at the right apex. 2. Decreased opacities at the right lower lung zone which could represent assoc iated atelectasis or pneumonia.
--- NOTE | ~2022-03-12 | XR_ITS ---
EXAMINATION: XR barium swallow modified DATE: 03/15/2022 08:55 INDICATION: Aspiration risk TECHNIQUE: Modified barium esophagram was performed by myself who administered fluoroscopy, in conju nction with speech pathologist who administered barium in varying consistencies as per speech patholo gist documentation. This was recorded on tape. A single fluoroscopic spot image was recorded. Fluoros copy exposure time was 2.8 minutes. The DAP for this procedure was 2.03 Gycm2. FINDINGS: Oral stage: Adequate function. Pharyngeal phase: Moderate vallecular residue. Laryngeal penetration: None. Aspiration: None. Laryngeal sensitivity: Not applicable. IMPRESSION: Modified barium swallow as above. Please refer to speech pathologist findings and specifi c feeding recommendations. Reviewed, dictated and finalized at location A. UM CLEANER ASSEMBLER IMPRESSION: Modified barium swallow as above. Please refer to speech pathologis t findings and specific feeding recommendations.
--- NOTE | ~2022-03-12 | CT_ITS ---
EXAMINATION: CT abdomen pelvis wo con DATE: 03/15/2022 15:03 INDICATION: Right lower quadrant abdominal pain. TECHNIQUE: Computed tomography (CT) of the abdomen and pelvis was performed without intravenous contr ast. Automated exposure control and iterative reconstruction technique were employed. The dose-length product was 808.48 mGy-cm. COMPARISON: CT abdomen and pelvis 03/12/22 FINDINGS: The visualized portions of the lung bases demonstrate a large right pleural effusion and ri ght-sided passive atelectasis. There is mild bronchiectasis on the left. There is chronic peripheral septal thickening in inferior left lung. There is a trace left pleural effusion. There is left atrial enlargement of the heart. There are coronary artery calcifications. No pericardial effusion. There i s bilateral gynecomastia. The liver demonstrates a nodular surface contour, consistent with cirrhosis . There is mild splenomegaly. Calcifications in the pancreas are consistent with chronic pancreatitis . The adrenal glands are normal. There is cortical thinning of the kidneys. There are cysts in left k idney measuring up to 19 mm. The prostate is moderately enlarged. There is diffuse bladder wall thick ening, secondary to chronic outlet obstruction. There are bladder diverticula on the left. The bladde r is decompressed by a Nelson catheter. There is a right inguinal hernia containing fat. There is dive rticulosis of the colon without evidence of diverticulitis. The appendix is not visualized. There is a small volume of ascites. There are no pathologically enlarged lymph nodes. Body wall edema is noted . IMPRESSION: 1. Cirrhosis of the liver with portal venous hypertension. 2. Small volume of ascites. 3. Worsened large right pleural effusion. 4. Right inguinal hernia containing fat. Reviewed, dictated and finalized at location A. RAL OFFICE REPAIRER
--- NOTE | ~2022-03-12 | XR_ITS ---
Portable chest x-ray Comparison: 03/18/2022 Clinical History: Pneumonia Findings: Small right pleural effusion present. There is hazy bibasilar airspace disease. There is a rounded masslike density at the right lung apex region. Cardiomediastinal silhouette is stable. Bon es and soft tissues are unremarkable. Impression: Stable rounded masslike density right lung apex. This likely represents loculated effusion based on p rior CT dated 03/12/2022. Small layering right pleural effusion also present. Mild bibasilar pulmonary edema/atelectasis. Correlate clinically for pneumonia. Reviewed, dictated and finalized at location . KITTER Impression: Stable rounded masslike density right lung apex. This likely represents loculat ed effusion based on prior CT dated 03/12/2022. Small layering right pleural effusion also present. Mild bibasilar pulmonary edema/atelectasis. Correlate clinically for pneumonia.
--- NOTE | ~2022-03-12 | XR_ITS ---
EXAMINATION: XR chest 1V portable DATE: 03/16/2022 17:44 INDICATION: Pneumonia. Atelectasis. TECHNIQUE: A single frontal view of the chest was obtained. COMPARISON: Chest single view 03/12/2022, CT abdomen and pelvis 03/15/2022 FINDINGS: There is a moderate-sized right pleural effusion. There are airspace opacities at the lung bases, right worse than left. No pneumothorax. The heart size is normal. IMPRESSION: 1. Stable moderate-sized right pleural effusion. 2. Stable airspace opacities at the lung bases, right worse than left, consistent with atelectasis ve rsus pneumonia. Reviewed, dictated and finalized at location A. UNT SERVICES COORDINATOR IMPRESSION: 1. Stable moderate-sized right pleural effusion. 2. Stable airspace opacities at the lung bases, right worse than left, consiste nt with atelectasis versus pneumonia.
--- NOTE | ~2022-03-12 | US_ITS ---
EXAMINATION: US thoracentesis DATE: 03/17/2022 12:55 INDICATION: Right pleural effusion. Check for empyema. TECHNIQUE: The procedure and its risks and benefits were discussed with the patient. Potential risks discussed included bleeding, infection, and pneumothorax. The patient understood the risks and agreed to proceed. The skin was prepped and draped in sterile fashion. 1% lidocaine was used for local anes thesia. Under ultrasound guidance, a 5 Fr catheter with trochar was advanced into the right pleural e ffusion. Fluid was aspirated. The catheter was removed, and a dressing was applied. There were no imm ediate complications. FINDINGS: Ultrasound images demonstrate a small to moderate right pleural effusion and the catheter within the fluid. A single thin internal septations seen within the otherwise anechoic effusion. There is also a 2 mm thick hypoechoic irregular margin to the pleural surfaces suggesting an exudative effusion. IMPRESSION: 1. Successful ultrasound-guided thoracentesis yielding 700 mL of dark yo-colored fluid. Reviewed, dictated and finalized at location A. LATHE OPERATOR IMPRESSION: 1. Successful ultrasound-guided thoracentesis yielding 700 mL of dark yo-co lored fluid.
--- NOTE | ~2022-03-12 | XR_ITS ---
EXAMINATION: XR chest 1V portable DATE: 03/18/2022 07:57 INDICATION: Pneumonia. Pleural effusion. TECHNIQUE: A single frontal view of the chest was obtained. COMPARISON: Chest single view 03/17/2022, CT abdomen and pelvis 03/15/2022, chest CT 03/12/2022 FINDINGS: There is a small loculated right pleural effusion. There are airspace opacities in the mid and lower lung zones, worse at right lung base. No pneumothorax. Cardiomegaly is noted. IMPRESSION: 1. Stable small loculated right pleural effusion. 2. Airspace opacities in the mid and lower lung zones with mild worsening, consistent with pneumonia. 3. Cardiomegaly. Reviewed, dictated and finalized at location A. STANT FITNESS MANAGER IMPRESSION: 1. Stable small loculated right pleural effusion. 2. Airspace opacities in the mid and lower lung zones with mild worsening, cons istent with pneumonia. 3. Cardiomegaly.
--- NOTE | ~2022-03-12 | US_ITS ---
EXAMINATION: US venous doppler [facility] DATE: 03/13/2022 15:40 INDICATION: Edema . TECHNIQUE: Grayscale images without and with compression and Doppler images of the bilateral lower ex tremity veins were obtained. COMPARISON: None FINDINGS: The right common femoral vein, profunda (deep) femoral vein, femoral vein, popliteal vein, peroneal v ein, posterior tibial veins, gastrocnemius vein, and greater saphenous vein are patent. The left common femoral vein, profunda femoral vein, femoral vein, popliteal vein, peroneal vein, pos terior tibial veins, gastrocnemius vein, and greater saphenous vein are patent. IMPRESSION: 1. Patent bilateral lower extremity veins. No evidence of deep venous thrombosis. Reviewed, dictated and finalized at location K. MANAGER IMPRESSION: 1. Patent bilateral lower extremity veins. No evidence of deep venous thrombos is.
--- NOTE | ~2022-03-12 | XR_ITS ---
EXAMINATION: XR chest 1V portable DATE: 03/12/2022 22:09 INDICATION: Crackles TECHNIQUE: frontal view of the chest was obtained. COMPARISON: Chest CT dated 03/12/2022 FINDINGS: Airspace opacities throughout the right hemithorax most dense at the right lung base consistent with a small predominately dependent right pleural effusion with loculated component at the right upper manju ng zone and with associated atelectasis and/or pneumonia in the right middle and lower lobes. Relativ kadie mild opacities at the left lung base consistent with tiny right left pleural effusion with additi onal atelectasis and/or pneumonia. No suggestion of superimposed pulmonary edema. No pneumothorax. C ardiomediastinal silhouette is within normal limits accounting for AP technique. Gaseous distention o f the transverse colon. IMPRESSION: 1. Persistent small right and tiny left pleural effusions with atelectasis and/or pneumonia in the bi lateral lower lung zones, right greater than left. Reviewed, dictated and finalized at location A. CONE INSPECTOR IMPRESSION: 1. Persistent small right and tiny left pleural effusions with atelectasis and/ or pneumonia in the bilateral lower lung zones, right greater than left.
--- NOTE | ~2022-03-12 | NM_ITS ---
EXAMINATION: NM pulmonary perfusion DATE: 03/13/2022 13:35 INDICATION: Right chest pain and elevated d-dimer. TECHNIQUE: 0.5 mCi Tc-99m MAA by intravenous route. Scintigraphic images of the chest were obtained. COMPARISON: Chest radiograph and CT dated 03/12/2022 FINDINGS: There is a large matched perfusion defect in the posterior right upper lung zone and mid to posterior aspect of the right mid and lower lung zones which corresponding opacities on the chest radiograph w hich related to a small to moderate-sized right pleural effusion and associated right middle and lowe r lobar atelectasis. Small matched perfusion defect corresponding to a small left pleural effusion an d the left posterior sulcus. No unmatched perfusion defects identified. IMPRESSION: 1. Nondiagnostic (low or intermediate probability for pulmonary embolism.) Reviewed, dictated and finalized at location A. LER
--- NOTE | ~2022-03-12 | US_ITS ---
EXAMINATION: US renal BI DATE: 03/13/2022 15:39 INDICATION: Acute on chronic renal failure TECHNIQUE: Multiple grayscale and Doppler ultrasound images of the kidneys were obtained. COMPARISON: None. FINDINGS: The right kidney measures 9.2 x 6.5 x 5.4 cm. The left kidney measures 8.4 x 4.9 x 4.0 cm. The kidney s demonstrate normal parenchymal echogenicity. Simple right midpole cyst measuring up to 2.1 cm. Ther e is no hydronephrosis. The bladder is normal. IMPRESSION: Unremarkable renal sonogram findings. Reviewed, dictated and finalized at location K. ERVATIONIST
[2022-03-12 17:59] VITALS: BP 133/88; PULSE 97; RESP 32; TEMP 36.8; O2SAT 93; BMI 27.7
--- NOTE | 2022-03-12 17:59 | ADMGEN ---
This patient, Jaspal Ruggiero, was admitted to IMU Room [id number] on Sunday03/12/22. Patient/family oriented to hospital policies and general routines including ID bracelet, bed and alarms, visiting hours, pain management, procedures, bathroom and other care routines, personal items, smoking policy, room service/diet, and visiting hours. Information on how to activate the Rapid Response Team has been discussed. Patient/Family are encouraged to report perceived risks to care and to ask questions if they do not understand what they are told or what they should do.
[2022-03-12 18:00] VITALS: PULSE 98
--- NOTE | 2022-03-12 18:44 | PM.IMHP ---
H&P: HPI History of Present Illness Date/Time: 03/12/22 18:44 Chief Complaint: Chest pain Narrative: This is a 86-year-old male patient to has been coughing for the last 2 days. He has also had clear sputum. The patient woke up at 1:00 a.m. this morning and complained of right rib pain. He has a history of heart disease with to coronary stents. The patient not been taking anything for diabetes but his blood sugar was 250 when EMS saw the patient. EKG showed a right bundle branch block and ischemia age indeterminate. The patient was wanting to go to his primary care doctor Dr. Morse but was not able to get in until Sunday. He also had a sore throat. The patient recently had a colonoscopy and EGD on 03/09/2022. His colonoscopy showed diverticulosis without perforation or abscess without bleeding. AVM. The colonoscopy was performed due to occult blood in the stool. His EGD a on that day shows small amount of blood was seen in the cricopharyngeus. A small hiatal hernia was found at the GE junction. The patient stated that he still having dark stools but he is on iron. He states when he cough there was some blood streaking in his sputum. Chest abdomen pelvis CT was read as the following Bilateral pulmonary infiltrates/atelectasis, most prominent in the right lower lobe Bilateral pleural effusions, larger on the right Small pericardial effusion Cirrhosis Asymmetric left renal atrophy. Left renal cyst. Bladder diverticula Prostate enlargement and calcification Diverticulosis of the colon; no evidence of diverticulitis The patient was seen by Dr. Daniel at [facility] and was a direct admit to this hospital today. His D-dimer was 12.17. Unable to do a CTA today because his creatinine is 1.79. Patient was given his subcu Lovenox today as the patient was found to be in AFib which is a new onset with RVR. His potassium was found to be 3.3 and sodium 132. Glucose 256. Total bilirubin 1.6 and alkaline phosphatase 131. The patient is being admitted to observation status on the date of service of 03/12/2022. Review of Systems Review of Systems: See HPI All systems reviewed & are unremarkable except as noted in HPI and below Constitutional: Constitutional: Reports as per HPI and Reports no additional constitutional complaints Eyes: Eyes: Reports as per HPI and Reports no additional eye complaints ENT: Reports system reviewed and no additional complaints, except as documented and Reports Normal hearing present Cardiovascular: Cardiovascular: Reports no additional cardiovascular complaints Respiratory: Respiratory: Reports no additional respiratory complaints and Reports no additional respiratory complaints Gastrointestinal: Gastrointestinal: Reports as per HPI and Reports no additional gastrointestinal complaints Musculoskeletal: Musculoskeletal: Reports no additional musculoskeletal complaints Integumentary/Breasts: Skin/Breast: Reports system reviewed and no additional complaints, except as docu and Reports as per HPI Neurologic: Reports system reviewed and no additional complaints, except as documented, Reports as per HPI and Reports Normal hearing present Psychiatric: Psychiatric: Reports no additional psychiatric complaints and Reports as per HPI Endocrine: Endocrine: Reports no additional endocrine complaints Hematologic/Lymphatic: Hematologic/Lymphatic: Reports no additional hematologic/lymphatic complaints Allergic/Immunologic: Allergic/Immunologic: Reports no additional allergic/immunologic complaints [facility] Past Medical History Medical History (Updated 03/12/22 @ 22:19 by Anastasia Kim NP) Acute UTI (urinary tract infection) BPH (benign prostatic hyperplasia) CAD (coronary artery disease) Dehydration, mild Diabetes 1.5, managed as type 2 Gout History of kidney stones Hyperlipidemia Hypertension Viral syndrome Surgical History Surgical History (Updated 03/12/22 @ 21:44 by Anastasia Kim NP) H
[2022-03-12 18:55] VITALS: BMI 27.7
[2022-03-12 20:00] VITALS: BP 116/61; PULSE 96; PULSE 98; RESP 20; TEMP 36.3; O2SAT 93
[2022-03-12] MEDS: ACETAMINOPHEN 325 MG TABLET 650 MG PO (20:03)
--- NOTE | 2022-03-12 21:49 | ECG_ITS ---
Measurements Intervals Julian Rate: 97 P: WA: 0 QRS: -10 QRSD: 162 T: -6 QT: 408 QTc: 518 Interpretive Statements ATRIAL FIBRILLATION RIGHT BUNDLE BRANCH BLOCK ABNORMAL ECG COMPARED TO ECG 03/12/2022 12:47:09 HEART RATE HAS DECREASED Electronically Signed On 03-13-2022 7:55:42 FIELD TECH by Moy Dominguez D.O.
[2022-03-12 22:00] VITALS: PULSE 96
[2022-03-12 22:35] LABS: Hemoglobin 11.9 g/dL (14.0-18.0)
[2022-03-12 23:06] VITALS: BP 107/68; PULSE 94; RESP 20; TEMP 36.6; O2SAT 94
[2022-03-12 23:10] LABS: Troponin I 0.023 ng/mL (0.000-0.034)
[2022-03-13] VITALS (11 sets, daily range): BP systolic 97–116; BP diastolic 56–69; PULSE 74–95; RESP 16–24; TEMP 36.1–36.5; O2SAT 94–100; BMI 27.9
--- NOTE | 2022-03-13 | ECHO_ITS ---
Patient Info Name: Jaspal Ruggiero Age: 86 years : 1935 Gender: Male Ht: 68 in Wt: 183 lbs BSA: 2.01 m2 HR: 88 bpm BP: 116 / 68 mmHg Heart Rhythm: Atrial Fibrillation Technical Quality: Fair Exam Date: 03/13/2022 11:35 AM Exam Location: [facility] Patient Status: Inpatient Admit Date: 03/13/2022 Staff Ordering Physician: Anastasia Kim NP Spray Technician: Rosa Maria Bennett RDCS Attending Provider: Veronica Montes DO Referring Physician: Julio ALVARADO; Exam Type: CA echo dop color flow w con Study Info Indications J90 - Pleural effusion, not elsewhere classified Complete two-dimensional, color flow and Doppler transthoracic echocardiogram is performed with contrast to opacify the left ventricle and to improve the deliniation of the left ventricle endocardial borders. Contrast/Agitated Saline Contrast/Ag. Saline: Definity Amount: 2.00 ml Administered By: Rosa Maria Bennett RDCS Existing IV Access: Yes IV Access Condition: patent with no signs of infiltration Summary 1. Left ventricular chamber dimension is normal. 2. Left ventricular systolic function is normal, estimated at 55%. 3. There is mildly increased left ventricular wall thickness. 4. The left ventricular diastolic function is indeterminate. 5. Global longitudinal strain is moderately elevated at -13 %. 6. Left atrial chamber dimension is moderately enlarged. 7. There is trace tricuspid valve regurgitation. 8. No pulmonary hypertension, estimated pulmonary arterial systolic pressure is 34 mmHg. Left Ventricle Left ventricular chamber dimension is normal. Left ventricular systolic function is normal, estimated at 55%. There is mildly increased left ventricular wall thickness. The left ventricular diastolic function is indeterminate. Global longitudinal strain is moderately elevated at -13 %. Right Ventricle Right ventricular chamber dimension is normal. Right ventricular systolic function is normal. Left Atria Left atrial chamber dimension is moderately enlarged. Right Atria Right atrial chamber dimension is normal. Aortic Valve The aortic valve is probable trileaflet. There is mild aortic valve sclerosis. There is no aortic valve stenosis. There is no aortic valve regurgitation. Pulmonic Valve The pulmonic valve is not well visualized. There is mild pulmonic regurgitation. Mitral Valve The mitral valve has normal leaflets. There is trace mitral valve regurgitation. The mitral valve annulus is mildly calcified. Tricuspid Valve The tricuspid valve leaflets are normal. There is trace tricuspid valve regurgitation. No pulmonary hypertension, estimated pulmonary arterial systolic pressure is 34 mmHg. Pericardium/Pleural The pericardium appears not well visualized. There is small pericardial effusion. Aorta The aortic root size at the sinus of Valsalva is mildly dilated. There is mild aortic atherosclerosis. Left Ventricular Outflow Tract Name Value Normal LVOT 2D LVOT Diameter 2.06 cm LVOT Doppler LVOT Peak Gradient 3 mmHg
[2022-03-13] MEDS: traMADol HCL (*CRX) 25 MG TABLET PO ×3 (00:08→16:56)
[2022-03-13] MEDS: TAMSULOSIN HCL 0.4 MG CAPSULE 0.8 MG PO ×3 (00:08→16:48)
[2022-03-13 01:14] LABS: Troponin I 0.022 ng/mL (0.000-0.034)
[2022-03-13 04:19] LABS: Hematocrit 33.1 % (42.0-52.0); Hemoglobin 11.1 g/dL (14.0-18.0); Immature Platelet Fraction Pct 5.6 % (0.9-11.2); Mean Corpuscular HGB Conc 33.5 g/dl (32-36); Mean Corpuscular Hemoglobin 30.4 pg (26-34); Mean Corpuscular Volume 90.7 fl (80-100); Mean Platelet Volume 12.7 fl (7.4-10.4); Platelet Count Result 58 k/mm3 (150-375); Red Blood Count 3.65 M/mm3 (4.6-6.20); Red Cell Distribution Width 15.4 % (11.5-14.5); White Blood Count 11.6 K/mm3 (4.5-10.0)
[2022-03-13 04:33] LABS: Alanine Aminotransferase 20 U/L (6-50); Albumin Level 2.5 g/dL (3.5-5.1); Alkaline Phosphatase 97 U/L (38-126); Anion Gap 4 mmol/L (8-16); Aspartate Amino Transferase 22 U/L (17-59); Bilirubin,Total 1.8 mg/dL (0.2-1.3); Blood Urea Nitrogen 53 mg/dL (9-20); Calcium 8.4 mg/dL (8.4-10.2); Carbon Dioxide 23 mmol/L (22-30); Chloride 101 mmol/L (98-107); Estimated CRCL calculation 23 ml/min; Estimated Glomerular Filt Rate 32; Glucose 150 mg/dL (65-110); Magnesium 1.8 mg/dL (1.6-2.3); Phosphorus 3.5 mg/dL (2.5-4.5); Potassium 4.1 mmol/L (3.4-5.0); Sodium 128 mmol/L (137-145)
[2022-03-13 04:41] LABS: Troponin I 0.019 ng/mL (0.000-0.034)
[2022-03-13 05:03] LABS: Band Neutrophils Percent 24 % (0-6); Hypochromasia 1+ (NORMAL); Lymphocytes Absolute Manual 0.23 K/mm3 (1.1-4.5); Monocytes Absolute Manual 0.23 K/mm3 (0.1-0.90); Monocytes Percent Manual 2 % (3-9); Neutrophils Absolute Manual 11.13 K/mm3 (1.3-6.7); Neutrophils Percent Manual 72 % (46-73); Platelet Estimate Decreased (Adequate); Total Cells Counted 100
[2022-03-13 05:04] LABS: Schistocytes Rare (NORMAL)
[2022-03-13 05:31] LABS: Hemoglobin A1C 5.8 % (<5.7)
[2022-03-13 05:33] LABS: Thyroid Stimulating Hormone Reflex 0.813 uIU/mL (0.465-4.68)
[2022-03-13 07:36] LABS: Glucose Point of Care 154 mg/dl (65-105)
--- NOTE | 2022-03-13 08:45 | PM.CNCAR ---
Assessment and Plan Assessment and plan (1) Atrial fibrillation: Code(s): I48.91 - Unspecified atrial fibrillation Status: Acute Plan This is an 86-year-old man known to have coronary disease, previous inferior infarction who presents to the hospital with what appears to be right middle lobe and lower lobe pneumonia. He is having some right lateral chest pain as a result of this which appears to be is chief complaint. He has been found to be in atrial fibrillation in the emergency room which is. We do not have the exact time of onset of this arrhythmia. He was not in atrial fibrillation when I saw him in the office however on 03/07/2022. The patient is a marginal candidate for anticoagulation in my opinion since he is having some gross hemoptysis as part of this pneumonia. At this much time I am not going to initiate systemic anticoagulation for this reason. He is on a very small dose of carvedilol I am going to transition this to low-dose metoprolol because of the atrial fibrillation. This will more effectively slow his rate of a little bit although he does not require a lot of rate control be on this at this time. Echocardiogram has already been ordered for this morning by the hospitalist this will be reviewed when it is completed. If he tolerates his atrial fibrillation without any hemodynamic sequelae or symptoms simple rate control strategy might be most appropriate/prudent in this elderly gentleman who has increased risk of anticoagulation with hemoptysis. Stewart Garcia MD [facility] History of Present Illness History of Present Illness Consult date/time: 03/13/22 08:45 Consult reason: atrial fibrillation Reason For Visit: New Onset Afib Narrative: This is an 86-year-old man I am seeing at the request of the hospitalist this morning because of atrial fibrillation. The patient has no previous history of atrial fibrillation but does have a history of coronary artery disease and sees me in the office for a number of years for follow-up of this. He came to the hospital yesterday from the emergency room in [place] when he presented there with the complaint of some right-sided chest pain that began woke up at 1:00 a.m. in the morning. He states he has got significant right lateral chest pain that occurs when he takes a deep breath or coughs. He also was reporting some gross hemoptysis to the ER physician in [place] as well as to the position here. He does to cry basis is a small amount of blood streaking his sputum. In the emergency room of his noticed that he was in atrial fibrillation. His heart rate appears to be reasonably well controlled despite no real medication on board to provide rate control. He is on telemetry here at [place] with a heart rate generally in the 90s. His chest x-ray appears to show right middle lobe and lower lobe pneumonia. He is resting in his bed sleeping with the television on when I came in the room to see him this morning. Upon awakening he has no other complaints. The patient is known to have coronary disease as mentioned above initially presenting in May of 2013 with an acute inferior wall ST-elevation MN he underwent successful right coronary stenting at that time. He presented subsequently with some ischemic symptoms and was brought to the cardiac catheterization lab again and found to have significant disease in the distal RCA bifurcation he underwent a more complex intervention with the PDA and PL bifurcation at that time he received a drug-eluting stent to the RPL branch. The patient in fact was just seen by me in the office on 03/07/2022 and did not have any cardiovascular complaints. He states that he was in the hospital recently with hypotension and anemia and some of his medications were withdrawn was previously on a ARB which has been stopped. He underwent outpatient colonoscopy and EGD last week which did not disclose any significant source of bleeding. The patient is not aware of
[2022-03-13] MEDS: ASPIRIN 81 MG CHEWABLE TABLET PO (09:29)
[2022-03-13] MEDS: PANTOPRAZOLE SODIUM IV 40 MG VIAL IV PUSH ×2 (09:29→21:08)
[2022-03-13] MEDS: FOLIC ACID 1 MG TABLET PO (09:29)
[2022-03-13] MEDS: FUROSEMIDE INJ 40 MG/4 ML VIAL IV PUSH (09:29)
[2022-03-13] MEDS: FERROUS SULFATE DRIED 142 MG TABCR PO (09:29)
[2022-03-13] MEDS: ATORVASTATIN 20 MG TABLET PO (09:29)
[2022-03-13] MEDS: METOPROLOL SUCCINATE EXT REL 25 MG TABCR PO (09:52)
[2022-03-13 10:18] LABS: Hematocrit 33.2 % (42.0-52.0); Hemoglobin 11.1 g/dL (14.0-18.0)
--- NOTE | 2022-03-13 11:28 | PM.CNNEP ---
Assessment and Plan Assessment and plan (1) Stage 3b chronic kidney disease: Code(s): N18.32 - Chronic kidney disease, stage 3b Status: Chronic Assessment and Plan: baseline creatinine seems to run around 1.5 - 2.0mg/d (although has been as high as 2.3mg/dl) presumably due to his HTN, vascular disease, nephrolithiasis, DM, BPH, and age-related change fluctuations due to #2 (?) follow repeat labs and UOP (2) Atrial fibrillation: Code(s): I48.91 - Unspecified atrial fibrillation Status: Acute Assessment and Plan: Cardiology following follow-up on Echo (3) Acute UTI (urinary tract infection): Code(s): N39.0 - Urinary tract infection, site not specified Status: Acute Assessment and Plan: UA suggestive follow-up on urine culture on antibiotics (4) Hypertension: Code(s): I10 - Essential (primary) hypertension Status: Chronic Assessment and Plan: reasonable control at this time follow trend of hemodynamics holding ARB given fluctuating creatinine (5) Diabetes 1.5, managed as type 2: Code(s): E13.9 - Other specified diabetes mellitus without complications Status: Chronic Assessment and Plan: follow accuchecks glycemic control Will continue to follow. History of Present Illness Reason for Consult Consult date: 03/13/22 Reason for consult: chronic renal failure Chief Complaint Chief complaint: New Onset Afib History of Present Illness Narrative: The patient is not the best historian so most of the information I have obtained is from review of electronic medical record as well as discussion with physician/nurses involved in his care. The patient is an 86-year-old male with a past medical history as outlined below who presented to [facility] with complaints of chest pain/chest discomfort. The patient reports that he has been coughing for the past 48 hours prior to his presentation to the outside hospital ER. His cough is productive of clear sputum but denies any overt fevers or chills. On the morning of admission, he had chest discomfort localized to his right rib area. Initially, he was going to see his primary care physician for this problem but he was unable to get in until next week. Hence, he presented to the outside hospital ER for further assessment. Workup and evaluation emergency room demonstrated the patient to be hemodynamically stable and in no acute distress. Subsequent testing demonstrated an elevated creatinine consistent with his known history of chronic kidney disease but he also had an elevated D-dimer. He was also found to be in AFib with RVR which apparently is a new finding. His blood work demonstrated mild hypokalemia, mild hyponatremia, and elevated blood sugar. A CT scan of the chest was unable to be done due to his elevated creatinine. He was subsequently transfer from [facility] emergency room as a direct admit to [facility] for further evaluation and therapy. Since admission, he appears to be in no apparent distress and seems to be relatively stable. It was noted that his creatinine continued to fluctuate with current interventions for his ongoing medical issues by a.m. labs. Renal consultation was requested due to his chronic kidney disease. From review his records, the patient's creatinine seems to fluctuate anywhere from 1.5 - 2.0 mg/dL although it has been as high as 2.2 mg/dL in the past. This would argue that he has chronic kidney disease stage IIIB and presumably this secondary to his hypertension, vascular disease, nephrolithiasis, BPH, and age-related change. He cannot tell me if he has ever seen a rn neurosurgical before or if he has ever been told that he has chronic kidney disease as he seems to be a poor historian with regard to his own health. Currently, the time visit, he appears to be in no acute distress. Review of Systems Review of Systems:
[2022-03-13 11:45] LABS: Glucose Point of Care 181 mg/dl (65-105)
[2022-03-13] MEDS: PERFLUTREN LIPID MICROSPHERES 1.5 ML VIAL DILUTED TO 10 ML TOTAL VOLUME IV PUSH (12:10)
--- NOTE | 2022-03-13 12:12 | PM.IMPN ---
Progress Note: A&P Assessment and Plan (1) Atrial fibrillation: Code(s): I48.91 - Unspecified atrial fibrillation Status: Acute Assessment and Plan: -assist new onset atrial fibrillation. -the patient sees Dr. Garcia here and so the environmental health and safety leader group has been consulted. -an echo has been ordered. -patient's Efra Vasc score is 5. -the patient was placed on subcu Lovenox and pharmacy to renal dose. However we have to hold it because his platelets are less than 100,000. The patient did get 1 dose at [facility]. -further recommendation per Cardiology group for anticoagulation. His H&H is stable now with patient recently had an EGD and colonoscopy for GI bleed. His H&H is now normal. On his colonoscopy he did have diverticulosis without perforation or abscess without bleeding. 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 On his EGD the patient did have esophageal luminal blood hiatal hernia. -I will check his stool for occult blood and continue to monitor his H&H every 6 hours for now. -start PPI -the patient is on Coreg. -an echo has been ordered. 03/13/2022 interval history: patient 86-year-old male with history of coronary artery disease presented with complaint of chest pain was found to have atrial fibrillation, however recently patient was seen by Cardiology patient in does not have history of atrial fibrillation, patient is seen by his environmental health and safety leader in the hospital and now patient is in sinus rhythm, his environmental health and safety leader stopped his Coreg and switch him over to low-dose metoprolol to control his heart rate, cardiac echo is ordered and pending, and has no complaint of chest, is found to have pneumonia most likely community-acquired and being treated with ceftriaxone and azithromycin, currently patient complains right upper quadrant pain and tender to palpation to further evaluate will do the right upper quadrant ultrasound, patient son and daughter are present in the give the updates, will continue to monitor will have a PT OT evaluate the patient. (2) Elevated troponin: Code(s): R77.8 - Other specified abnormalities of plasma proteins Status: Acute Assessment and Plan: -continue to trend. Patient is complaining of right-sided chest pain. He states it hurts worse when he takes a deep breath and when he coughs. This could be related to his renal failure. (3) Elevated d-dimer: Code(s): R79.89 - Other specified abnormal findings of blood chemistry Status: Acute Assessment and Plan: -were not able to do a CTA at this point due to his low GFR and his acute renal failure. I did order V/Q scan. The patient was given a dose of subcu Lovenox at [facility]. However his platelets are now less than 100,000 so will hold his Lovenox for now. We will also do venous Dopplers. (4) Acute on chronic renal failure: Code(s): N17.9 - Acute kidney failure, unspecified; N18.9 - Chronic kidney disease, unspecified Status: Acute Assessment and Plan: Patient's creatinine is 1.79 with a baseline anywhere from 1.[address] up to 2.23. -I did order a renal ultrasound. I will also consult Nephrology. (5) Diabetes 1.5, managed as type 2: Code(s): E13.9 - Other specified diabetes mellitus without complications Status: Acute Assessment and Plan: -Accu-Cheks AC and HS with sliding scale insulin and hypoglycemic protocol. -continue with Amaryl. Last A1c was 5.1 on 01/17/2022. (6) Hypertension: Code(s): I10 - Essential (primary) hypertension Status: Acute Assessment and Plan: -continue with Coreg Hold losartan due to the acute renal failure (7) Effusion, pericardium: Code(s): I31.39 - Other pericardial effusion (noninflammatory) Status: Inactive Assessment and Plan: -an echo has been ordered. May consider EDDIE -cardiology has been consulted. (8) Iron deficiency anemia: Code(s): D50.9 - Iron deficiency anemia, unspecified St
[2022-03-13 15:55] LABS: Hematocrit 34.6 % (42.0-52.0)
[2022-03-13 17:01] LABS: Glucose Point of Care 140 mg/dl (65-105)
--- NOTE | 2022-03-13 18:58 | PC.NURSE ---
This patient, Jaspal Ruggiero, was received from IMU on 03/13/22 at 1858. Patient/family oriented to unit policies and routines
[2022-03-13 22:17] LABS: Glucose Point of Care 215 mg/dl (65-105)
[2022-03-14] VITALS (14 sets, daily range): BP systolic 90–138; BP diastolic 51–71; PULSE 60–104; RESP 16–18; TEMP 36.1–36.7; O2SAT 92–98
[2022-03-14 06:26] LABS: Hematocrit 32.1 % (42.0-52.0); Hemoglobin 10.5 g/dL (14.0-18.0); Immature Platelet Fraction Pct 7.5 % (0.9-11.2); Mean Corpuscular HGB Conc 32.7 g/dl (32-36); Mean Corpuscular Hemoglobin 30.5 pg (26-34); Mean Corpuscular Volume 93.3 fl (80-100); Mean Platelet Volume 11.7 fl (7.4-10.4); Platelet Count Result 53 k/mm3 (150-375); Red Blood Count 3.44 M/mm3 (4.6-6.20); Red Cell Distribution Width 15.6 % (11.5-14.5); White Blood Count 9.8 K/mm3 (4.5-10.0)
[2022-03-14 06:38] LABS: Anion Gap 4 mmol/L (8-16); Blood Urea Nitrogen 61 mg/dL (9-20); Calcium 8.1 mg/dL (8.4-10.2); Carbon Dioxide 26 mmol/L (22-30); Chloride 101 mmol/L (98-107); Estimated CRCL calculation 22 ml/min; Estimated Glomerular Filt Rate 30; Glucose 103 mg/dL (65-110); Magnesium 1.9 mg/dL (1.6-2.3); Potassium 3.6 mmol/L (3.4-5.0); Sodium 131 mmol/L (137-145)
--- NOTE | 2022-03-14 08:39 | PM.PNCARD ---
Progress Note: A&P Assessment and Plan (1) Atrial fibrillation: Code(s): I48.91 - Unspecified atrial fibrillation Status: Acute Assessment and Plan: New diagnosis of atrial fibrillation. Onset of atrial fibrillation is unknown, however, he was in sinus rhythm at his office visit on 03/07/2022. We are pursuing a rate control strategy for this with a low dose of Toprol XL 25mg daily. The choice has been made not to anticoagulate him at this time because of hemoptysis secondary to pneumonia. May be a candidate for LAAO if he is unable to be anticoagulated. Echocardiogram showed normal LVSF, EF 55%, no significant valvular pathology. Subjective Date/time seen: 03/14/22 08:39 Cardiology follow up for atrial fibrillation Remains in atrial fibrillation with rate well controlled. He states his breathing is about the same. No chest pain or palpitations but is complaining of RUQ abdominal pain after meals. Review of Systems Constitutional: Constitutional: Reports no additional constitutional complaints Eyes: Eyes: Reports no additional eye complaints ENT: Reports system reviewed and no additional complaints, except as documented Cardiovascular: Cardiovascular: Reports no additional cardiovascular complaints Respiratory: Respiratory: Reports hemoptysis Gastrointestinal: Gastrointestinal: Reports no additional gastrointestinal complaints Musculoskeletal: Musculoskeletal: Reports no additional musculoskeletal complaints Integumentary/Breasts: Skin/Breast: Reports system reviewed and no additional complaints, except as docu Neurologic: Reports system reviewed and no additional complaints, except as documented Endocrine: Endocrine: Reports no additional endocrine complaints Hematologic/Lymphatic: Hematologic/Lymphatic: Reports no additional hematologic/lymphatic complaints Allergic/Immunologic: Allergic/Immunologic: Reports no additional allergic/immunologic complaints Exam Const: General: comfortable and no acute distress Other: Pleasant elderly man sleeping in bed upon awakening does not report any cardiovascular complaints HENMT: Mouth: Yes moist mucous membranes Eyes: Sclera: sclerae normal Neck: Neck: supple and no JVD Resp: Effort & Inspection: normal respiratory effort Auscultation: not clear to auscultation bilaterally and rhonchi Cardio: Rate: regular rate Rhythm: abnormal rhythm irregularly irregular GI: Auscultation: normal bowel sounds Skin: General skin exam: normal color Neuro: Other: Alert and oriented x3 arousable hours no complaints, poor historian for details of his case Extrem: Other: No edema adequate perfusion Objective Data Vital Signs Vital Signs: Vital Signs - 24 hr 03/13/22 10:00 03/13/22 12:00 03/13/22 12:00 Temperature 36.1 C L Pulse Rate 85 86 Respiratory Rate 20 Blood Pressure 100/56 L Pulse Oximetry 95 97 Oxygen Delivery Nasal Cannula Oxygen Flow Rate 4 03/13/22 12:00 03/13/22 16:00 03/13/22 16:00 Temperature 36.1 C L Pulse Rate 86 95 91 Respiratory Rate 20 Blood Pressure 108/60 Pulse Oximetry 100 Oxygen Delivery Oxygen Flow Rate 03/13/22 20:14 03/13/22 20:00 03/13/22 20:00 Temperature 36.2 C L Pulse Rate 74 77 Respiratory Rate 20 Blood Pressure 97/69 L Pulse Oximetry 98 95 Oxygen Delivery Nasal Cannula Oxygen Flow Rate 4 03/14/22 00:00 03/14/22 00:00 03/14/22 04:18 Temperature 36.4 C L 36.7 C Pulse Rate 83 73 81 Respiratory Rate 18 18 Blood Pressure 106/65 102/62 Pulse Oximetry 94 96 Oxygen Delivery Oxygen Flow Rate 03/14/22 04:00 03/14/22 08:33 Temperature 36.6 C Pulse Rate 84 88 Respiratory Rate 18 Blood Pressure 110/63 Pulse Oximetry 98 Oxygen Delivery Oxygen Flow Rate Intake/Output Intake/Output: Intake & Output 03/11/22 03/12/22 03/13/22 03/14/22 23:59 23:59 23:59 23:59 Intake Total 1000 200 Output Total 1200 350 Balance -20
[2022-03-14 08:41] LABS: Glucose Point of Care 100 mg/dl (65-105)
[2022-03-14 10:02] LABS: NT Pro B Type Natriuretic Pept 7440 pg/mL (19.9-100)
--- NOTE | 2022-03-14 11:04 | PCSTNOTE ---
Please refer to the Bedside Swallow Evaluation in the EMR. Please note, silent aspiration cannot be ruled out at bedside.
--- NOTE | 2022-03-14 11:15 | PM.IMPN ---
Progress Note: A&P Assessment and Plan (1) Atrial fibrillation: Code(s): I48.91 - Unspecified atrial fibrillation Status: Acute Assessment and Plan: -assist new onset atrial fibrillation. -the patient sees Dr. Garcia here and so the turning machine operator group has been consulted. -an echo has been ordered. -patient's Efra Vasc score is 5. -the patient was placed on subcu Lovenox and pharmacy to renal dose. However we have to hold it because his platelets are less than 100,000. The patient did get 1 dose at [facility]. -further recommendation per Cardiology group for anticoagulation. His H&H is stable now with patient recently had an EGD and colonoscopy for GI bleed. His H&H is now normal. On his colonoscopy he did have diverticulosis without perforation or abscess without bleeding. 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 On his EGD the patient did have esophageal luminal blood hiatal hernia. -I will check his stool for occult blood and continue to monitor his H&H every 6 hours for now. -start PPI -the patient is on Coreg. -an echo has been ordered. 03/13/2022 interval history: patient 86-year-old male with history of coronary artery disease presented with complaint of chest pain was found to have atrial fibrillation, however recently patient was seen by Cardiology patient in does not have history of atrial fibrillation, patient is seen by his turning machine operator in the hospital and now patient is in sinus rhythm, his turning machine operator stopped his Coreg and switch him over to low-dose metoprolol to control his heart rate, cardiac echo is ordered and pending, and has no complaint of chest, is found to have pneumonia most likely community-acquired and being treated with ceftriaxone and azithromycin, currently patient complains right upper quadrant pain and tender to palpation to further evaluate will do the right upper quadrant ultrasound, patient son and daughter are present in the give the updates, will continue to monitor will have a PT OT evaluate the patient. HR controlled continue metorolol (2) Elevated troponin: Code(s): R77.8 - Other specified abnormalities of plasma proteins Status: Acute Assessment and Plan: -continue to trend. Patient is complaining of right-sided chest pain. He states it hurts worse when he takes a deep breath and when he coughs. This could be related to his renal failure. Stable cardiology on board (3) Elevated d-dimer: Code(s): R79.89 - Other specified abnormal findings of blood chemistry Status: Acute Assessment and Plan: -were not able to do a CTA at this point due to his low GFR and his acute renal failure. V/Q scan low to intermediate probability of a PE + One Dose of subcu Lovenox at [facility]. However his platelets are now less than 100,000 so will hold his Lovenox for now. venous Dopplers negative for DVT (4) Acute on chronic renal failure: Code(s): N17.9 - Acute kidney failure, unspecified; N18.9 - Chronic kidney disease, unspecified Status: Acute Assessment and Plan: Creatinine is 2.10 baseline anywhere from 1.[address] up to 2.23. renal ultrasound was unremarkable consult Nephrology. thank you for your help (5) Diabetes 1.5, managed as type 2: Code(s): E13.9 - Other specified diabetes mellitus without complications Status: Chronic Assessment and Plan: -Accu-Cheks AC and HS with sliding scale insulin and hypoglycemic protocol. -Hold Amaryl. Last A1c was 5.1 on 01/17/2022. (6) Hypertension: Code(s): I10 - Essential (primary) hypertension Status: Chronic Assessment and Plan: -continue with Coreg Hold losartan due to the acute renal failure Had episode of hypotension this am Albumin given (7) Effusion, pericardium: Code(s): I31.39 - Other pericardial effusion (noninflammatory) Status: Inactive Assessment and Plan:
[2022-03-14 11:32] LABS: Glucose Point of Care 157 mg/dl (65-105)
--- NOTE | 2022-03-14 11:41 | PC.NURSE ---
Spoke with Hospitalist Thai verbally and updated him on patients vitals, medications, and swallowing at this time. New orders put in. Holding AM medications until modified barium swallow study is completed.
[2022-03-14 11:54] LABS: Albumin Level 2.4 g/dL (3.5-5.1)
--- NOTE | 2022-03-14 11:56 | PM.PNNEP ---
Progress Note: A&P Assessment and Plan (1) Stage 3b chronic kidney disease: Code(s): N18.32 - Chronic kidney disease, stage 3b Status: Chronic Assessment and Plan: baseline creatinine seems to run around 1.5 - 2.0mg/d (although has been as high as 2.3mg/dl) presumably due to his HTN, vascular disease, nephrolithiasis, DM, BPH, and age-related change fluctuations due to #2 (?) follow repeat labs and UOP (2) Atrial fibrillation: Code(s): I48.91 - Unspecified atrial fibrillation Status: Acute Assessment and Plan: Cardiology following follow-up on Echo (3) Acute UTI (urinary tract infection): Code(s): N39.0 - Urinary tract infection, site not specified Status: Acute Assessment and Plan: UA suggestive follow-up on urine culture on antibiotics (4) Hypertension: Code(s): I10 - Essential (primary) hypertension Status: Chronic Assessment and Plan: reasonable control at this time follow trend of hemodynamics holding ARB given fluctuating creatinine (5) Diabetes 1.5, managed as type 2: Code(s): E13.9 - Other specified diabetes mellitus without complications Status: Chronic Assessment and Plan: follow accuchecks glycemic control Will continue to follow. Subjective Date/time seen: 03/14/22 11:56 States his breathing/respiratory status seems about the same (no worse but not much better); heart rate/afib seems better controlled at this time; still with on/off abdominal pain as well; no acute distress voiced; no issues overnight or earlier this morning. Exam Narrative: General: elderly male in NAD Heart: IRRR, normal S1 and S2; no rub Lungs: coarse and decreased at bases Abdomen: soft, nontender, nondistended, positive bowel sounds Extremities: no cyanosis or clubbing; no edema Skin: warm and dry Objective Data Vital Signs Vital Signs: Vital Signs Temp Pulse Resp BP Pulse Ox O2 Del Method O2 Flow Rate 03/14/22 11:35 90/58 L 03/14/22 11:30 101 H 18 90/60 L 96 03/14/22 10:09 Nasal Cannula 2 03/14/22 08:33 97.8 F 88 18 110/63 98 03/14/22 04:00 84 03/14/22 04:18 98.1 F 81 18 102/62 96 03/14/22 00:00 97.5 F L 73 18 106/65 94 03/14/22 00:00 83 03/13/22 20:00 77 03/13/22 20:00 95 Nasal Cannula 4 03/13/22 20:14 97.1 F L 74 20 97/69 L 98 03/13/22 16:00 91 03/13/22 16:00 97.0 F L 95 20 108/60 100 03/13/22 12:00 86 03/13/22 12:00 97 Nasal Cannula 4 03/13/22 12:00 97.0 F L 86 20 100/56 L 95 Intake/Output Intake/Output: Intake & Output 03/11/22 03/12/22 03/13/22 03/14/22 23:59 23:59 23:59 23:59 Intake Total 1000 200 Output Total 1200 350 Balance -200 -150 Meds/Results Medications: Active Medications Generic Name Dose Route Start Last Admin Trade Name Freq PRN Reason Stop Dose Admin Acetaminophen 650 mg 03/12/22 19:00 03/12/22 20:03 Acetaminophen 325 Mg Tablet PO 650 mg Q4H PRN Administration Mild Pain (1-3) or Fever Aspirin 81 mg 03/13/22 09:00 03/13/22 09:29 Aspirin 81 Mg Chewable Tablet PO 81 mg DAILY OSIEL Administration Atorvastatin Calcium 20 mg 03/13/22 09:00 03/13/22 09:29 Atorvastatin 20 Mg Tablet PO 20 mg DAILY OSIEL Administration Dextrose 12.5 gm 03/12/22 21:40 Dextrose 50% 25 Gm/50 Ml Syringe IV PUSH PRN PRN Hypoglycemia Protocol Ferrous Sulfate 142 mg 03/13/22 08:00 03/13/22 09:29 Ferrous Sulfate Dried 142 Mg Tabcr PO 142 mg DAILY@0800 OSIEL Administration Folic Acid 1 mg 03/13/22 09:00 03/13/22 09:29 Folic Acid 1 Mg Tablet PO 1 mg DAILY OSIEL Administration Furosemide 40 mg 03/13/22 09:00 03/13/22 09:29 Furosemide Inj 40 Mg/4 Ml Vial IV PUSH 40 mg DAILY OSIEL Administration Glimepiride 0.5 mg 03/13/22 09:00 03/13/22 09:30 Glimepiride
[2022-03-14] MEDS: ALBUMIN HUMAN 25% 25 GM/100 ML 100 ML IVPB (12:05)
--- NOTE | 2022-03-14 13:24 | PC.NURSE ---
XR modified barium swallow put in at 1140 by hospitalist . Jack Machine Operator called XR put XR states they have no order and speech therapy needs to be contacted. Jack Machine Operator called Speech Therapy. Awaiting response from [facility] at this time.
[2022-03-14 17:05] LABS: Creatinine Urine 99.7 mg/dL; Urea Random Urine 882 MG/DL
[2022-03-14 17:21] LABS: Sodium Urine Random < 5 meq/L
[2022-03-14 17:54] LABS: Glucose Point of Care 192 mg/dl (65-105)
[2022-03-14] MEDS: TAMSULOSIN HCL 0.4 MG CAPSULE 0.8 MG PO (18:01)
[2022-03-14 19:09] LABS: IFOB Positive Control Positive; Immunochemical Fecal Occult Bl Negative (N)
[2022-03-14] MEDS: PANTOPRAZOLE SODIUM IV 40 MG VIAL IV PUSH (20:42)
[2022-03-14 21:00] LABS: Glucose Point of Care 202 mg/dl (65-105)
[2022-03-15] VITALS (10 sets, daily range): BP systolic 108–118; BP diastolic 50–62; PULSE 58–99; RESP 16; TEMP 36.4–36.6; O2SAT 92–97
[2022-03-15 06:15] LABS: Hematocrit 31.8 % (42.0-52.0); Hemoglobin 10.5 g/dL (14.0-18.0); Immature Platelet Fraction Pct 7.5 % (0.9-11.2); Mean Corpuscular Hemoglobin 30.5 pg (26-34); Mean Corpuscular Volume 92.4 fl (80-100); Mean Platelet Volume 12.3 fl (7.4-10.4); Platelet Count Result 53 k/mm3 (150-375); Red Blood Count 3.44 M/mm3 (4.6-6.20); Red Cell Distribution Width 15.4 % (11.5-14.5); White Blood Count 8.5 K/mm3 (4.5-10.0)
[2022-03-15 06:29] LABS: Anion Gap 7 mmol/L (8-16); Blood Urea Nitrogen 63 mg/dL (9-20); Calcium 8.1 mg/dL (8.4-10.2); Carbon Dioxide 23 mmol/L (22-30); Chloride 101 mmol/L (98-107); Estimated CRCL calculation 25 ml/min; Estimated Glomerular Filt Rate 34; Glucose 125 mg/dL (65-110); Potassium 2.8 mmol/L (3.4-5.0); Sodium 131 mmol/L (137-145)
[2022-03-15 08:31] LABS: Glucose Point of Care 129 mg/dl (65-105)
[2022-03-15] MEDS: FOLIC ACID 1 MG TABLET PO (09:21)
[2022-03-15] MEDS: ATORVASTATIN 20 MG TABLET PO (09:21)
[2022-03-15] MEDS: ASPIRIN 81 MG CHEWABLE TABLET PO (09:21)
[2022-03-15] MEDS: METOPROLOL SUCCINATE EXT REL 25 MG TABCR PO (09:21)
[2022-03-15] MEDS: FERROUS SULFATE DRIED 142 MG TABCR PO (09:21)
[2022-03-15] MEDS: PANTOPRAZOLE SODIUM IV 40 MG VIAL IV PUSH ×2 (09:22→20:56)
[2022-03-15] MEDS: TAMSULOSIN HCL 0.4 MG CAPSULE 0.8 MG PO ×2 (09:22→17:18)
[2022-03-15] MEDS: FUROSEMIDE INJ 40 MG/4 ML VIAL IV PUSH (09:22)
--- NOTE | 2022-03-15 09:30 | PC.NURSE ---
Spoke with Speech Therapist Vilma. Patient is okay to try and swallow pills slowly, one at a time, with chin tucking method. Still awaiting modified barium swallow study results.
--- NOTE | 2022-03-15 10:02 | PCSTNOTE ---
Please refer to the Modified Barium Swallow Evaluation in the EMR.
[2022-03-15] MEDS: POTASSIUM CHLORIDE 20 MEQ PACKET (FOR LIQUID) 60 MEQ PO (11:34)
[2022-03-15 11:54] LABS: Glucose Point of Care 186 mg/dl (65-105)
--- NOTE | 2022-03-15 13:45 | PM.PNNEP ---
Progress Note: A&P Assessment and Plan (1) Stage 3b chronic kidney disease: Code(s): N18.32 - Chronic kidney disease, stage 3b Status: Chronic Assessment and Plan: stable baseline creatinine seems to run around 1.5 - 2.0mg/d (although has been as high as 2.3mg/dl) presumably due to his HTN, vascular disease, nephrolithiasis, DM, BPH, and age-related change fluctuations due to #2 (?) follow repeat labs and UOP (2) Atrial fibrillation: Code(s): I48.91 - Unspecified atrial fibrillation Status: Acute Assessment and Plan: Cardiology following Echo results noted continue rate control strategy (3) Hypertension: Code(s): I10 - Essential (primary) hypertension Status: Chronic Assessment and Plan: reasonable control at this time follow trend of hemodynamics holding ARB given fluctuating creatinine (4) Diabetes 1.5, managed as type 2: Code(s): E13.9 - Other specified diabetes mellitus without complications Status: Chronic Assessment and Plan: follow accuchecks glycemic control Will continue to follow. Subjective Date/time seen: 03/15/22 13:45 Continues to have ongoing abdominal pain despite conservative therapy; renal function remains relatively stable if not better at this time inspite of diuretic therapy; potassium replaced given hypokalemia with AM labs; no other issues overnight or earlier this AM; CT scan ordered to evaluate abdominal pain. Exam Narrative: General: elderly male in NAD Heart: IRRR, normal S1 and S2; no rub Lungs: coarse and decreased at bases Abdomen: soft, nontender, nondistended, positive bowel sounds Extremities: no cyanosis or clubbing; no edema Skin: warm and dry Objective Data Vital Signs Vital Signs: Vital Signs Temp Pulse Resp BP Pulse Ox O2 Del Method 03/15/22 09:22 114/54 L 03/15/22 09:22 95 Room Air 03/15/22 09:21 97 03/15/22 04:00 90 03/15/22 03:41 97.8 F 58 L 16 110/50 L 92 03/15/22 00:00 89 03/14/22 22:16 97.8 F 60 16 111/51 L 92 03/14/22 20:00 90 03/14/22 20:00 97.8 F 60 16 111/51 L 92 03/14/22 20:00 95 Room Air 03/14/22 19:13 97.6 F 87 16 110/70 98 03/14/22 16:00 104 H Intake/Output Intake/Output: Intake & Output 03/12/22 03/13/22 03/14/22 03/15/22 23:59 23:59 23:59 23:59 Intake Total 1000 720 240 Output Total 1200 750 600 Balance -200 -30 -360 Meds/Results Medications: Active Medications Generic Name Dose Route Start Last Admin Trade Name Chelsey PRN Reason Stop Dose Admin Acetaminophen 650 mg 03/12/22 19:00 03/12/22 20:03 Acetaminophen 325 Mg Tablet PO 650 mg Q4H PRN Administration Mild Pain (1-3) or Fever Aspirin 81 mg 03/13/22 09:00 03/15/22 09:21 Aspirin 81 Mg Chewable Tablet PO 81 mg DAILY OSIEL Administration Atorvastatin Calcium 20 mg 03/13/22 09:00 03/15/22 09:21 Atorvastatin 20 Mg Tablet PO 20 mg DAILY OSIEL Administration Dextrose 12.5 gm 03/12/22 21:40 Dextrose 50% 25 Gm/50 Ml Syringe IV PUSH PRN PRN Hypoglycemia Protocol Ferrous Sulfate 142 mg 03/13/22 08:00 03/15/22 09:21 Ferrous Sulfate Dried 142 Mg Tabcr PO 142 mg DAILY@0800 OSIEL Administration Folic Acid 1 mg 03/13/22 09:00 03/15/22 09:21 Folic Acid 1 Mg Tablet PO 1 mg DAILY OSIEL Administration Furosemide 40 mg 03/13/22 09:00 03/15/22 09:22 Furosemide Inj 40 Mg/4 Ml Vial IV PUSH 40 mg DAILY OSIEL Administration Glimepiride 0.5 mg 03/13/22 09:00 03/15/22 09:26 Glimepiride 0.5 Mg Tablet PO Not Given DAILY OSIEL Glucagon 1 mg 03/12/22 21:40 Glucagon For Inj 1 Mg Vial IM PRN PRN Hypoglycemia Protocol Glucose 15 gm 03/12/22 21:40 Glucose Oral Gel 15 Gm Of Glucse In 37.5 Gm Tube PO PRN PRN Hypoglycemia Protocol Dextrose 1,000 mls @ 100 mls/hr 03/12/22 2
--- NOTE | 2022-03-15 14:36 | PM.IMPN ---
Progress Note: A&P Assessment and Plan (1) Abdominal pain: Code(s): R10.9 - Unspecified abdominal pain Status: Acute (2) Pneumonia: Code(s): J18.9 - Pneumonia, unspecified organism Status: Acute (3) Stage 3b chronic kidney disease: Code(s): N18.32 - Chronic kidney disease, stage 3b Status: Chronic (4) Atrial fibrillation: Code(s): I48.91 - Unspecified atrial fibrillation Status: Acute (5) Hypertension: Code(s): I10 - Essential (primary) hypertension Status: Chronic Plan Acute abdominal pain will get a stat CT without contrast. History of pneumonia currently on IV antibiotics. HBA1c ( goal <7.0%) , Renal functions, Liver panel every 3 months Monitor vitamin B12 levels Optimize CHERYL-inhibitor and statin Routine glucose monitoring. Watch for Hypoglycemia. BMI goal < 25 IV fluid resuscitation Monitor lactic acid levels Repeat CBC CMP CXR Pneumonia IV antibiotics ceftriaxone and Zithromax Video swallow studies CT negative for PE noted for infiltrates Creatinine 1.9. And gentle hydration. Avoid nephrotoxic drugs. Monitor antihypertensive drugs Avoid NSAIDs. Routine CMP monitor GFR. Monitor electrolytes potassium levels. 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 Iron supplement if needed History of atrial fibrillation not on any anticoagulants due to GI bleed Time Spent With Patient Time: DVT prophylaxis. GI prophylaxis. All records reviewed Discussed plan of care with the nursing staff and with the patient in detail. Answered all questions and concerns from the patient. All labs have been reviewed. Code status updated dictation may have been done utilizing a voice recognition system. Attempts have been made to correct errors. However, there may be uncorrected grammatical, spelling, and recognition errors present. Subjective Date/time seen: 03/15/22 14:36 Interval history: the right lower quadrant pain rating 8/10 review Exam Narrative: GENERAL: Well appearing, well-nourished, non-toxic, in no acute distress. HEAD: Normocephalic, atraumatic. NECK: Supple. No adenopathy, no masses. RESPIRATORY: Airway patent, respirations nonlabored. Clear to auscultation bilaterally, no rales, rhonchi, wheezing. CARDIOVASCULAR: Regular rate and rhythm without murmurs, rubs, or gallops. Peripheral pulses 2+ and equal bilaterally. ABDOMINAL: Soft, tender,RLQ distended, no hepatosplenomegaly. Normoactive BS. MUSCULOSKELETAL: no Epigastric and no hypochondrial tenderness SKIN: Warm, dry, normal color. No rashes. NEURO: A&O X3. Moves all extremities PSYCHIATRIC: Appropriate mood and affect. Normal interaction. Objective Data Vital Signs Vital Signs: Vital Signs - 24 hr 03/14/22 16:00 03/14/22 19:13 03/14/22 20:00 Temperature 36.4 C Pulse Rate 104 H 87 Respiratory Rate 16 Blood Pressure 110/70 Pulse Oximetry 98 95 Oxygen Delivery Room Air 03/14/22 20:00 03/14/22 20:00 03/14/22 22:16 Temperature 36.6 C 36.6 C Pulse Rate 60 90 60 Respiratory Rate 16 16 Blood Pressure 111/51 L 111/51 L Pulse Oximetry 92 92 Oxygen Delivery 03/15/22 00:00 03/15/22 03:41 03/15/22 04:00 Temperature 36.6 C Pulse Rate 89 58 L 90 Respiratory Rate 16 Blood Pressure 110/50 L Pulse Oximetry 92 Oxygen Delivery 03/15/22 09:21 03/15/22 09:22 03/15/22 09:22 Temperature Pulse Rate 97 Respiratory Rate Blood Pressure 114/54 L Pulse Oximetry 95 Oxygen Delivery Room Air Intake/Output Intake/Output: Intake & Output 03/12/22 03/13/22 03/14/22 03/15/22 23:59 23:59 23:59 23:59 Intake Total 1000 720 240 Output Total 1200 750 600 Balance -200 -30 -360 Meds/Results Medications: Active Medications Generic Name Dose Route Start Last Admin Trade N
[2022-03-15 17:07] LABS: Glucose Point of Care 155 mg/dl (65-105)
[2022-03-15 20:51] LABS: Glucose Point of Care 287 mg/dl (65-105)
[2022-03-16] VITALS (9 sets, daily range): BP systolic 105–133; BP diastolic 63–81; PULSE 79–100; RESP 16–20; TEMP 36.6–36.7; O2SAT 91–98
[2022-03-16 05:58] LABS: Hematocrit 32.9 % (42.0-52.0); Immature Platelet Fraction Pct 7.6 % (0.9-11.2); Mean Corpuscular HGB Conc 33.4 g/dl (32-36); Mean Corpuscular Hemoglobin 30.6 pg (26-34); Mean Corpuscular Volume 91.4 fl (80-100); Mean Platelet Volume 12.5 fl (7.4-10.4); Platelet Count Result 60 k/mm3 (150-375); Red Cell Distribution Width 15.3 % (11.5-14.5); White Blood Count 8.1 K/mm3 (4.5-10.0)
[2022-03-16 06:04] LABS: Anion Gap 7 mmol/L (8-16); Blood Urea Nitrogen 65 mg/dL (9-20); Calcium 7.8 mg/dL (8.4-10.2); Carbon Dioxide 22 mmol/L (22-30); Chloride 104 mmol/L (98-107); Estimated CRCL calculation 25 ml/min; Estimated Glomerular Filt Rate 34; Glucose 145 mg/dL (65-110); Magnesium 1.9 mg/dL (1.6-2.3); Potassium 2.8 mmol/L (3.4-5.0); Sodium 133 mmol/L (137-145)
[2022-03-16] MEDS: POTASSIUM CHLORIDE 20 MEQ PACKET (FOR LIQUID) 80 MEQ PO (06:36)
[2022-03-16 08:47] LABS: Glucose Point of Care 167 mg/dl (65-105)
[2022-03-16] MEDS: FERROUS SULFATE DRIED 142 MG TABCR PO (09:12)
[2022-03-16] MEDS: PANTOPRAZOLE SODIUM IV 40 MG VIAL IV PUSH ×2 (09:13→20:19)
[2022-03-16] MEDS: ATORVASTATIN 20 MG TABLET PO (09:13)
[2022-03-16] MEDS: TAMSULOSIN HCL 0.4 MG CAPSULE 0.8 MG PO ×2 (09:13→17:45)
[2022-03-16] MEDS: FOLIC ACID 1 MG TABLET PO (09:13)
[2022-03-16] MEDS: ASPIRIN 81 MG CHEWABLE TABLET PO (09:13)
[2022-03-16] MEDS: FUROSEMIDE INJ 40 MG/4 ML VIAL IV PUSH (09:14)
[2022-03-16] MEDS: METOPROLOL SUCCINATE EXT REL 25 MG TABCR PO (09:16)
--- NOTE | 2022-03-16 09:24 | PCOTNOTE ---
Attempted to see patient this am, however patient refused all activity. Pt declined up to chair or edge of bed. Pt reported stomach ache. RN present attempted to encourage patient, however he continued to decline.
--- NOTE | 2022-03-16 10:15 | PCPTNOTE ---
03-16-22 @ 1015 Pt states is feeling unwell. Was doing better then last night started feeling worse. Stomach hurtts and does not want to do therapy. Attempted to educate pt on being out of bed for improved comfort and therapy could assist with this. Pt declined further. Nursing notified
--- NOTE | 2022-03-16 11:22 | PM.IMPN ---
Progress Note: A&P Assessment and Plan (1) Abdominal pain: Code(s): R10.9 - Unspecified abdominal pain Status: Acute (2) Pneumonia: Code(s): J18.9 - Pneumonia, unspecified organism Status: Acute (3) Stage 3b chronic kidney disease: Code(s): N18.32 - Chronic kidney disease, stage 3b Status: Chronic (4) Atrial fibrillation: Code(s): I48.91 - Unspecified atrial fibrillation Status: Acute (5) Hypertension: Code(s): I10 - Essential (primary) hypertension Status: Chronic Plan Acute abdominal pain will get a stat CT without contrast. Negative for acute pathology Worsening right-sided pleural effusion. Pulmonary consulted HBA1c ( goal <7.0%) , Renal functions, Liver panel every 3 months Monitor vitamin B12 levels Optimize CHERYL-inhibitor and statin Routine glucose monitoring. Watch for Hypoglycemia. BMI goal < 25 IV fluid resuscitation Monitor lactic acid levels Repeat CBC CMP IV antibiotics ceftriaxone and Zithromax Video swallow studies CT negative for PE noted for infiltrates Creatinine 1.9. And gentle hydration. Avoid nephrotoxic drugs. Monitor antihypertensive drugs Avoid NSAIDs. Routine CMP monitor GFR. Monitor electrolytes potassium levels. 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 Iron supplement if needed History of atrial fibrillation not on any anticoagulants due to GI bleed Time Spent With Patient Time: DVT prophylaxis. GI prophylaxis. All records reviewed Discussed plan of care with the nursing staff and with the patient in detail. Answered all questions and concerns from the patient. All labs have been reviewed. Code status updated dictation may have been done utilizing a voice recognition system. Attempts have been made to correct errors. However, there may be uncorrected grammatical, spelling, and recognition errors present. Subjective Date/time seen: 03/16/22 11:22 Interval history: Still complains of shortness of breath no more abdominal pain no more diarrhea still feels a little bloated Exam Narrative: GENERAL: Well appearing, well-nourished, non-toxic, in no acute distress. HEAD: Normocephalic, atraumatic. NECK: Supple. No adenopathy, no masses. RESPIRATORY: Airway patent, respirations labored. Diminished air entry right lung base. CARDIOVASCULAR: Regular rate and rhythm without murmurs, rubs, or gallops. Peripheral pulses 2+ and equal bilaterally. ABDOMINAL: Soft, nontender, nondistended, no hepatosplenomegaly. Normoactive BS. MUSCULOSKELETAL: no Epigastric and no hypochondrial tenderness SKIN: Warm, dry, normal color. No rashes. NEURO: A&O X3. Moves all extremities PSYCHIATRIC: Appropriate mood and affect. Normal interaction. Objective Data Vital Signs Vital Signs: Vital Signs - 24 hr 03/15/22 15:18 03/15/22 12:00 03/15/22 16:00 Temperature 36.4 C Pulse Rate 89 87 85 Respiratory Rate 16 Blood Pressure 108/62 Pulse Oximetry 97 Oxygen Delivery 03/15/22 20:00 03/15/22 20:00 03/16/22 00:00 Temperature 36.6 C 36.6 C Pulse Rate 74 85 80 Respiratory Rate 16 16 Blood Pressure 118/60 133/78 Pulse Oximetry 97 92 Oxygen Delivery 03/16/22 00:00 03/16/22 04:00 03/16/22 04:00 Temperature 36.6 C Pulse Rate 85 93 79 Respiratory Rate 20 Blood Pressure 128/81 Pulse Oximetry 91 Oxygen Delivery 03/16/22 08:00 03/16/22 09:16 03/16/22 08:00 Temperature Pulse Rate 98 99 Respiratory Rate Blood Pressure Pulse Oximetry Oxygen Delivery Room Air Intake/Output Intake/Output: Intake & Output 03/13/22 03/14/22 03/15/22 03/16/22 23:59 23:59 23:59 23:59 Intake Total 1000 720 660 120 Output Total 0472 909 8284 400 Balance - -280 Meds/Results
[2022-03-16 12:44] LABS: Glucose Point of Care 176 mg/dl (65-105)
--- NOTE | 2022-03-16 13:00 | P.PNNP_ITS ---
Progress Note: A&P Assessment and Plan (1) Stage 3b chronic kidney disease: Code(s): N18.32 - Chronic kidney disease, stage 3b Status: Chronic Assessment and Plan: * stable * baseline creatinine seems to run around 1.5 - 2.0mg/d (although has been as high as 2.3mg/dl) * presumably due to his HTN, vascular disease, nephrolithiasis, DM, BPH, and age-related change * fluctuations due to #2 or #4 * follow repeat labs and UOP (2) Pneumonia: Code(s): J18.9 - Pneumonia, unspecified organism Status: Acute Assessment and Plan: * as noted by imaging to date * on antibiotics * culture data reviewed (3) Pleural effusion: Code(s): J90 - Pleural effusion, not elsewhere classified Status: Acute Assessment and Plan: * possibly secondary to pneumona(?) * plan thoracentesis for further evaluation * on antibiotics * Pulmonary following (4) Atrial fibrillation: Code(s): I48.91 - Unspecified atrial fibrillation Status: Acute Assessment and Plan: * Cardiology following * Echo results noted * continue rate control strategy (5) Hypertension: Code(s): I10 - Essential (primary) hypertension Status: Chronic Assessment and Plan: * reasonable control at this time * follow trend of hemodynamics * holding ARB given fluctuating creatinine (6) Diabetes 1.5, managed as type 2: Code(s): E13.9 - Other specified diabetes mellitus without complications Status: Chronic Assessment and Plan: * follow accuchecks * glycemic control As renal function has remain fairly stable, no much else to add -- will continue to follow intermittently. Subjective Date/time seen: 03/16/22 13:00 CT scan yesterday negative for any acute abdominal pathology but noted increase in size and likely complicated right pleural effusion; Pulmonary consulted for further recommendations; renal continues to remain stable despite IV diuretic therapy; no acute distress noted at the time of my visit. Exam Narrative: General: elderly male in NAD Heart: IRRR, normal S1 and S2; no rub Lungs: coarse and decreased at bases Abdomen: soft, nontender, nondistended, positive bowel sounds Extremities: no cyanosis or clubbing; no edema Skin: warm and intact Objective Data Vital Signs Vital Signs: Vital Signs Temp Pulse Resp BP Pulse Ox O2 Del Method 03/16/22 12:00 100 03/16/22 08:00 Room Air 03/16/22 09:16 99 03/16/22 08:00 98 03/16/22 04:00 97.9 F 79 20 128/81 91 03/16/22 04:00 93 03/16/22 00:00 85 03/16/22 00:00 97.9 F 80 16 133/78 92 03/15/22 20:00 85 03/15/22 20:00 97.8 F 74 16 118/60 97 03/15/22 16:00 85 03/15/22 15:18 97.6 F 89 16 108/62 97 Intake/Output Intake/Output: Intake & Output 03/13/22 03/14/22 03/15/22 03/16/22 23:59 23:59 23:59 23:59 Intake Total 1000 720 660 120 Output Total 0839 867 7536 400 Balance - -280 Meds/Results Medications: Active Medications Generic Name Dose Route Start Last Admin Trade Name Freq PRN Reason Stop Dose Admin
--- NOTE | 2022-03-16 13:00 | PM.PNNEP ---
Progress Note: A&P Assessment and Plan (1) Stage 3b chronic kidney disease: Code(s): N18.32 - Chronic kidney disease, stage 3b Status: Chronic Assessment and Plan: stable baseline creatinine seems to run around 1.5 - 2.0mg/d (although has been as high as 2.3mg/dl) presumably due to his HTN, vascular disease, nephrolithiasis, DM, BPH, and age-related change fluctuations due to #2 or #4 follow repeat labs and UOP (2) Pneumonia: Code(s): J18.9 - Pneumonia, unspecified organism Status: Acute Assessment and Plan: as noted by imaging to date on antibiotics culture data reviewed (3) Pleural effusion: Code(s): J90 - Pleural effusion, not elsewhere classified Status: Acute Assessment and Plan: possibly secondary to pneumona(?) plan thoracentesis for further evaluation on antibiotics Pulmonary following (4) Atrial fibrillation: Code(s): I48.91 - Unspecified atrial fibrillation Status: Acute Assessment and Plan: Cardiology following Echo results noted continue rate control strategy (5) Hypertension: Code(s): I10 - Essential (primary) hypertension Status: Chronic Assessment and Plan: reasonable control at this time follow trend of hemodynamics holding ARB given fluctuating creatinine (6) Diabetes 1.5, managed as type 2: Code(s): E13.9 - Other specified diabetes mellitus without complications Status: Chronic Assessment and Plan: follow accuchecks glycemic control As renal function has remain fairly stable, no much else to add -- will continue to follow intermittently. Subjective Date/time seen: 03/16/22 13:00 CT scan yesterday negative for any acute abdominal pathology but noted increase in size and likely complicated right pleural effusion; Pulmonary consulted for further recommendations; renal continues to remain stable despite IV diuretic therapy; no acute distress noted at the time of my visit. Exam Narrative: General: elderly male in NAD Heart: IRRR, normal S1 and S2; no rub Lungs: coarse and decreased at bases Abdomen: soft, nontender, nondistended, positive bowel sounds Extremities: no cyanosis or clubbing; no edema Skin: warm and intact Objective Data Vital Signs Vital Signs: Vital Signs Temp Pulse Resp BP Pulse Ox O2 Del Method 03/16/22 12:00 100 03/16/22 08:00 Room Air 03/16/22 09:16 99 03/16/22 08:00 98 03/16/22 04:00 97.9 F 79 20 128/81 91 03/16/22 04:00 93 03/16/22 00:00 85 03/16/22 00:00 97.9 F 80 16 133/78 92 03/15/22 20:00 85 03/15/22 20:00 97.8 F 74 16 118/60 97 03/15/22 16:00 85 03/15/22 15:18 97.6 F 89 16 108/62 97 Intake/Output Intake/Output: Intake & Output 03/13/22 03/14/22 03/15/22 03/16/22 23:59 23:59 23:59 23:59 Intake Total 1000 720 660 120 Output Total 5127 108 5536 400 Balance - -280 Meds/Results Medications: Active Medications Generic Name Dose Route Start Last Admin Trade Name Freq PRN Reason Stop Dose Admin Acetaminophen 650 mg 03/12/22 19:00 03/12/22 20:03 Acetaminophen 325 Mg Tablet PO 650 mg Q4H PRN Administration Mild Pain (1-3) or Fever Aspirin 81 mg 03/13/22 09:00 03/16/22 09:13 Aspirin 81 Mg Chewable Tablet PO 81 mg DAILY OSIEL Administration Atorvastatin Calcium 20 mg 03/13/22 09:00 03/16/22 09:13 Atorvastatin 20 Mg Tablet PO 20 mg DAILY OSIEL Administration Azithromycin 500 mg 03/16/22 12:00 Azithromycin 250 Mg Tablet PO 03/17/22 12:01 DAILY@1200 [facility] Cefdinir 300 mg 03/16/22 12:00 Cefdinir 300 Mg Capsule PO 03/19/22 12:01 DAILY@1200 [facility] Dextrose 12.5 gm 03/12/22 21:40 Dextrose 50% 25 Gm/50 Ml Syringe IV PUSH PRN PRN Hypoglycemia Protocol Ferrous Sulfate 142 mg 03/13/22 08:00 03/16/22 09:12 Ferrous Sul
[2022-03-16] MEDS: CEFDINIR 300 MG CAPSULE PO (13:29)
[2022-03-16] MEDS: AZITHROMYCIN 250 MG TABLET 500 MG PO (13:29)
[2022-03-16 13:49] LABS: Potassium 3.5 mmol/L (3.4-5.0)
[2022-03-16 15:30] LABS: Osmolality, Urine 440 mOsm/kg (50-1200)
--- NOTE | 2022-03-16 17:17 | PM.CNPUL ---
Assessment and Plan Assessment and plan (1) Pneumonia: Code(s): J18.9 - Pneumonia, unspecified organism Status: Acute (2) Atrial fibrillation: Code(s): I48.91 - Unspecified atrial fibrillation Status: Acute (3) Dysphagia: Code(s): R13.10 - Dysphagia, unspecified Status: Acute (4) Pleural effusion: Code(s): J90 - Pleural effusion, not elsewhere classified Status: Acute Assessment and Plan: 86-year-old man presented with right upper quadrant abdominal pain, one-week history of cough with blood streaked sputum, found to have right pleural effusion, right lower lobe consolidation with air bronchogram probably related to pneumonia and/or right lower lobe atelectasis, and newly detected ascites. On repeat abdominal CT the right pleural effusion has significantly increased from initial study on admission to the hospital. On the chest CT there is also evidence of pleural fluid loculation which suggests complicated parapneumonic pleural effusion or empyema. All these findings are new as patient had no evidence of pneumonia or pleural disease on a chest CT done about 2 months ago. The patient has been treated with antibiotics and has had workup for possible aspiration. Plan: He needs to have R thoracentesis to exclude empyema. Patient has no leukocytosis while he is on oral antibiotics. further recommendations depending upon the results of pleural fluid analysis. Will follow along with you. (5) Ascites: Code(s): R18.8 - Other ascites Status: Acute (6) Stage 3b chronic kidney disease: Code(s): N18.32 - Chronic kidney disease, stage 3b Status: Chronic (7) Abdominal pain: Code(s): R10.9 - Unspecified abdominal pain Status: Acute (8) Interstitial lung disease: Code(s): J84.9 - Interstitial pulmonary disease, unspecified Status: Acute Assessment and Plan: patient had evidence of mild interstitial lung disease changes on a chest CT done in December of last year. he will need further workup as outpatient. History of Present Illness History of Present Illness Consult date: 03/16/22 Chief complaint: New Onset Afib Narrative: This is a consultation for right pleural effusion. This 86-year-old man for was in his usual state of health until approximately 5 days ago when he presented to the emergency room with a 1 day history of right upper abdominal pain. The patient stated that he was awakened by abdominal pain localized in the right upper quadrant which appeared to be worse with movements. he had no fever chills chest pain. In the previous for 5 days the patient was coughing and also had blood streaked sputum. He had undergone upper endoscopy and colonoscopy for anemia about 3 days prior to this admission. The patient has been evaluated in the emergency room and he was found to be in atrial fibrillation. Initial chest CT showed mild to moderate ascites, right lung volume loss with evidence of air bronchogram in the right lower lobe and small pleural effusions. On and a subsequent abdominal CT there was significant increase of the right pleural effusion with evidence of loculated fluid along with air bronchogram and volume loss of the right lung. Patient has been treated with antibiotics for possible lower respiratory tract infection. He underwent video swallow study that showed no evidence of aspiration. Upon questioning he admitted having right upper quadrant /lower ribcage pain but less than before. He continues to cough less often than before, still coughing up blood tinged sputum. He has no fever or chills. Recent chest CT done in late December had shown some mild interstitial lung disease changes mostly in the form of a subpleural reticulation at bases with no evidence of honeycombing. that chest CT showed no evidence of infiltrates or pleural effusion on the right. Another finding on the chest CT was possible liver cir
[2022-03-16 17:37] LABS: Glucose Point of Care 169 mg/dl (65-105)
[2022-03-16] MEDS: POTASSIUM CHLORIDE 20 MEQ TABLET.ER 40 MEQ PO (17:45)
[2022-03-16 20:15] LABS: Glucose Point of Care 215 mg/dl (65-105)
[2022-03-17] VITALS (9 sets, daily range): BP systolic 105–111; BP diastolic 58–69; PULSE 86–97; RESP 20–22; TEMP 36.3–36.7; O2SAT 94–96
[2022-03-17 05:54] LABS: Hematocrit 32.4 % (42.0-52.0); Hemoglobin 10.7 g/dL (14.0-18.0); Immature Platelet Fraction Pct 7.6 % (0.9-11.2); Mean Corpuscular Hemoglobin 30.1 pg (26-34); Mean Platelet Volume 12.5 fl (7.4-10.4); Platelet Count Result 58 k/mm3 (150-375); Red Blood Count 3.56 M/mm3 (4.6-6.20); Red Cell Distribution Width 15.2 % (11.5-14.5); White Blood Count 7.5 K/mm3 (4.5-10.0)
[2022-03-17 06:02] LABS: Anion Gap 5 mmol/L (8-16); Blood Urea Nitrogen 61 mg/dL (9-20); Carbon Dioxide 22 mmol/L (22-30); Chloride 105 mmol/L (98-107); Estimated CRCL calculation 23 ml/min; Estimated Glomerular Filt Rate 32; Glucose 140 mg/dL (65-110); Sodium 132 mmol/L (137-145)
--- NOTE | 2022-03-17 08:48 | PCPTNOTE ---
Attempted PT evaluation. Pt refused with pt stating I just want to . RN aware made aware of pt's comment/refusal. Will follow.
[2022-03-17 08:55] LABS: Glucose Point of Care 139 mg/dl (65-105)
--- NOTE | 2022-03-17 09:12 | PM.PNPUL ---
Progress Note: A&P Assessment and Plan (1) Pleural effusion: Code(s): J90 - Pleural effusion, not elsewhere classified Status: Acute Assessment and Plan: 86-year-old man presented with right upper quadrant abdominal pain of 1 day duration. Diagnostic studies have shown moderately large right pleural effusion, right lower lobe consolidation with air bronchogram related to pneumonia and or atelectasis, ascites and, and probable liver cirrhosis by abdominal CT. The patient had had some cough with blood tinged sputum for several days prior to this admission. He remains on room air, continues to have right upper abdominal quadrant pain but less than before, and no hemoptysis over the last 24 hours. Patient has been on oral antibiotics. WBC not elevated. recent chest imaging studies showed increasing right pleural effusion since admission. Plan: Patient is scheduled for right thoracentesis to exclude empyema. Will continue with current antibiotic regimen. Further recommendations depending upon the results of pleural fluid analysis. (2) Acute on chronic renal failure: Code(s): N17.9 - Acute kidney failure, unspecified; N18.9 - Chronic kidney disease, unspecified Status: Acute (3) Atrial fibrillation: Code(s): I48.91 - Unspecified atrial fibrillation Status: Acute (4) Diabetes 1.5, managed as type 2: Code(s): E13.9 - Other specified diabetes mellitus without complications Status: Chronic (5) Ascites: Code(s): R18.8 - Other ascites Status: Acute (6) Interstitial lung disease: Code(s): J84.9 - Interstitial pulmonary disease, unspecified Status: Acute (7) Dysphagia: Code(s): R13.10 - Dysphagia, unspecified Status: Acute Subjective Date/time seen: 03/17/22 09:12 Interval history: Patient has no new respiratory symptoms. He has not had any blood-tinged sputum over the last 24 hours. Remaining on room air, afebrile. Has had a mild cough but not being able cough up phlegm. He has no orthopnea fever chills. Patient has no history of trauma to his right chest. Was asked about Coumadin he had been on but he could not recollect the indication for it. The patient stopped Coumadin prior to GI procedures. Review of Systems Review of Systems: All systems reviewed & are unremarkable except as noted in HPI and below ( In HPI and below) Exam Narrative: GENERAL APPEARANCE: Well developed, well nourished, alert and cooperative, and appears to be in no acute distress while on room air SKIN: Inspection of the skin reveals no rashes, ulcerations or petechiae. HEENT: Sclerae anicteric and conjunctivae pink and moist. Extraocular movements were intact and pupils were equal, round. The oral mucosa, hard and soft palate, tongue and posterior pharynx were normal. NECK: Supple. There was no thyroid enlargement, and no tenderness, or masses were felt. CHEST: Normal AP diameter and normal contour without any kyphoscoliosis. LUNGS: dullness to percussion at decreased breath sounds at right base posteriorly, no wheezing CARDIAC: There was a regular rate and rhythm without any murmurs. ABDOMEN: Soft and nontender with normal bowel sounds. There was no organomegaly. LYMPH NODES: No lymphadenopathy was appreciated in the neck. EXTREMITIES: No cyanosis, clubbing or edema. NEUROLOGIC: Alert and oriented x 3. Normal affect. Objective Data Vital Signs Vital Signs: Vital Signs - 24 hr 03/16/22 09:16 03/16/22 12:00 03/16/22 15:31 Temperature 36.6 C Pulse Rate 99 100 95 Respiratory Rate 16 Blood Pressure 105/63 Pulse Oximetry 95 Oxygen Delivery 03/16/22 16:00 03/16/22 20:00 03/16/22 20:00 Temperature 36.7 C Pulse Rate 82 92 83 Respiratory Rate 20 Blood Pressure 109/72 Pulse Oximetry 98 Oxygen Delivery 03/16/22 20:00 03/17/22 00:00 03/17/22 00:00 Temperature 36.7 C Pulse Rate 83 86 86 Respiratory Rate 20 22 H Blood
[2022-03-17 09:14] LABS: Albumin Level 2.7 g/dL (3.5-5.1); INR 1.3; Prothrombin Time 16.1 Seconds (11.1-14.7)
[2022-03-17] MEDS: POTASSIUM CHLORIDE 20 MEQ TABLET.ER 40 MEQ PO ×2 (09:57→18:16)
[2022-03-17] MEDS: METOPROLOL SUCCINATE EXT REL 25 MG TABCR PO (10:00)
[2022-03-17] MEDS: ATORVASTATIN 20 MG TABLET PO (10:01)
[2022-03-17] MEDS: TAMSULOSIN HCL 0.4 MG CAPSULE 0.8 MG PO ×2 (10:01→18:17)
[2022-03-17] MEDS: FOLIC ACID 1 MG TABLET PO (10:01)
[2022-03-17] MEDS: PANTOPRAZOLE SODIUM IV 40 MG VIAL IV PUSH ×2 (10:02→20:29)
[2022-03-17] MEDS: FUROSEMIDE INJ 40 MG/4 ML VIAL IV PUSH (10:02)
--- NOTE | 2022-03-17 11:29 | PCOTNOTE ---
Attempted to see patient this am, however per RN, patient is waiting for a thoracentesis scheduled for noon. RN reported patient is not feeling well and resting prior to procedure. He already refused earlier this morning.
[2022-03-17 13:16] LABS: Glucose Point of Care 134 mg/dl (65-105)
[2022-03-17 13:17] LABS: pH Pleural Fluid 7.461 (7.210-7.500)
[2022-03-17] MEDS: CEFDINIR 300 MG CAPSULE PO (13:26)
[2022-03-17] MEDS: AZITHROMYCIN 250 MG TABLET 500 MG PO (13:26)
[2022-03-17 13:52] LABS: Pleural fluid source Pleural fluid
--- NOTE | 2022-03-17 13:53 | PM.IMPN ---
Progress Note: A&P Assessment and Plan (1) Abdominal pain: Code(s): R10.9 - Unspecified abdominal pain Status: Acute (2) Pneumonia: Code(s): J18.9 - Pneumonia, unspecified organism Status: Acute (3) Stage 3b chronic kidney disease: Code(s): N18.32 - Chronic kidney disease, stage 3b Status: Chronic (4) Atrial fibrillation: Code(s): I48.91 - Unspecified atrial fibrillation Status: Acute (5) Hypertension: Code(s): I10 - Essential (primary) hypertension Status: Chronic Plan Worsening right-sided pleural effusion. Underwent thoracentesis Pulmonary consulted discussed with this past HBA1c ( goal <7.0%) , Renal functions, Liver panel every 3 months Monitor vitamin B12 levels Optimize CHERYL-inhibitor and statin Routine glucose monitoring. Watch for Hypoglycemia. BMI goal < 25 IV fluid resuscitation Monitor lactic acid levels Repeat CBC CMP IV antibiotics ceftriaxone and Zithromax Video swallow studies CT negative for PE noted for infiltrates Creatinine 2.0 And gentle hydration. Avoid nephrotoxic drugs. Monitor antihypertensive drugs Avoid NSAIDs. Routine CMP monitor GFR. Monitor electrolytes potassium levels. 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 Iron supplement if needed History of atrial fibrillation not on any anticoagulants due to GI bleed Spoke to patient's in detail answered all questions also discuss possibility of VAT procedure Time Spent With Patient Time: DVT prophylaxis. GI prophylaxis. All records reviewed Discussed plan of care with the nursing staff and with the patient in detail. Answered all questions and concerns from the patient. All labs have been reviewed. Code status updated dictation may have been done utilizing a voice recognition system. Attempts have been made to correct errors. However, there may be uncorrected grammatical, spelling, and recognition errors present. Subjective Date/time seen: 03/17/22 13:53 Interval history: Patient going down for thoracentesis Exam Narrative: GENERAL: Well appearing, well-nourished, non-toxic, in no acute distress. HEAD: Normocephalic, atraumatic. NECK: Supple. No adenopathy, no masses. RESPIRATORY: Airway patent, respirations nonlabored. Clear to auscultation bilaterally, no rales, rhonchi, wheezing. CARDIOVASCULAR: Regular rate and rhythm without murmurs, rubs, or gallops. Peripheral pulses 2+ and equal bilaterally. ABDOMINAL: Soft, nontender, nondistended, no hepatosplenomegaly. Normoactive BS. MUSCULOSKELETAL: no Epigastric and no hypochondrial tenderness SKIN: Warm, dry, normal color. No rashes. NEURO: A&O X3. Moves all extremities PSYCHIATRIC: Appropriate mood and affect. Normal interaction. Objective Data Vital Signs Vital Signs: Vital Signs - 24 hr 03/16/22 15:31 03/16/22 16:00 03/16/22 20:00 Temperature 36.6 C 36.7 C Pulse Rate 95 82 92 Respiratory Rate 16 20 Blood Pressure 105/63 109/72 Pulse Oximetry 95 98 Oxygen Delivery 03/16/22 20:00 03/16/22 20:00 03/17/22 00:00 Temperature Pulse Rate 83 83 86 Respiratory Rate 20 Blood Pressure Pulse Oximetry 98 Oxygen Delivery Room Air 03/17/22 00:00 03/17/22 04:00 03/17/22 04:00 Temperature 36.7 C 36.7 C Pulse Rate 86 96 97 Respiratory Rate 22 H 22 H Blood Pressure 111/69 111/58 L Pulse Oximetry 94 94 Oxygen Delivery 03/16/22 21:20 03/17/22 08:00 03/17/22 08:42 Temperature 36.7 C 36.7 C Pulse Rate 89 89 Respiratory Rate 20 20 Blood Pressure 105/60 105/60 Pulse Oximetry 98 95 95 Oxygen Delivery Room Air 03/17/22 10:00 Temperature Pulse Rate 90 Respiratory Rate Blood Pressure Pulse Oximetry Oxygen Delivery Intake/Output Intake/Output: Intake & Ou
[2022-03-17 13:54] LABS: Appearance Pleural Fluid Hazy (Clear); Color Pleural Fluid Yellow (Colorless); Lymphocytes Pleural Fluid 8 %; Neutrophils Pleural Fluid 41 % (0-25)
[2022-03-17 13:55] LABS: Macrophages Pleural Fluid 19 %; Monocytes Pleural Fluid 32 %
[2022-03-17 18:20] LABS: Glucose Point of Care 143 mg/dl (65-105)
[2022-03-17] MEDS: traMADol HCL (*CRX) 25 MG TABLET PO (20:38)
[2022-03-17 21:32] LABS: Glucose Point of Care 174 mg/dl (65-105)
[2022-03-18] VITALS (11 sets, daily range): BP systolic 101–110; BP diastolic 57–62; PULSE 67–94; RESP 18–20; TEMP 36–36.6; O2SAT 97–100
[2022-03-18 06:03] LABS: Hematocrit 32.3 % (42.0-52.0); Hemoglobin 10.2 g/dL (14.0-18.0); Immature Platelet Fraction Pct 8.1 % (0.9-11.2); Mean Corpuscular HGB Conc 31.6 g/dl (32-36); Mean Corpuscular Hemoglobin 29.2 pg (26-34); Mean Corpuscular Volume 92.6 fl (80-100); Mean Platelet Volume 12.4 fl (7.4-10.4); Platelet Count Result 57 k/mm3 (150-375); Red Blood Count 3.49 M/mm3 (4.6-6.20); Red Cell Distribution Width 15.3 % (11.5-14.5); White Blood Count 5.8 K/mm3 (4.5-10.0)
[2022-03-18 06:11] LABS: Anion Gap 5 mmol/L (8-16); Blood Urea Nitrogen 58 mg/dL (9-20); Calcium 7.8 mg/dL (8.4-10.2); Carbon Dioxide 20 mmol/L (22-30); Chloride 108 mmol/L (98-107); Estimated CRCL calculation 25 ml/min; Estimated Glomerular Filt Rate 34; Glucose 137 mg/dL (65-110); Magnesium 2.1 mg/dL (1.6-2.3); Potassium 3.2 mmol/L (3.4-5.0); Sodium 133 mmol/L (137-145)
[2022-03-18 08:39] LABS: Glucose Point of Care 132 mg/dl (65-105)
[2022-03-18] MEDS: POTASSIUM CHLORIDE 20 MEQ TABLET.ER 40 MEQ PO ×2 (09:38→18:12)
[2022-03-18] MEDS: FOLIC ACID 1 MG TABLET PO (09:39)
[2022-03-18] MEDS: METOPROLOL SUCCINATE EXT REL 25 MG TABCR PO (09:39)
[2022-03-18] MEDS: FERROUS SULFATE DRIED 142 MG TABCR PO (09:40)
[2022-03-18] MEDS: ATORVASTATIN 20 MG TABLET PO (09:40)
[2022-03-18] MEDS: ASPIRIN 81 MG CHEWABLE TABLET PO (09:40)
[2022-03-18] MEDS: TAMSULOSIN HCL 0.4 MG CAPSULE 0.8 MG PO ×2 (09:40→18:13)
[2022-03-18] MEDS: PANTOPRAZOLE SODIUM IV 40 MG VIAL IV PUSH ×2 (09:41→20:33)
[2022-03-18] MEDS: FUROSEMIDE INJ 40 MG/4 ML VIAL IV PUSH (09:41)
--- NOTE | 2022-03-18 10:16 | PM.IMPN ---
Progress Note: A&P Assessment and Plan (1) Abdominal pain: Code(s): R10.9 - Unspecified abdominal pain Status: Acute (2) Pneumonia: Code(s): J18.9 - Pneumonia, unspecified organism Status: Acute (3) Stage 3b chronic kidney disease: Code(s): N18.32 - Chronic kidney disease, stage 3b Status: Chronic (4) Atrial fibrillation: Code(s): I48.91 - Unspecified atrial fibrillation Status: Acute (5) Hypertension: Code(s): I10 - Essential (primary) hypertension Status: Chronic Plan Worsening right-sided pleural effusion. Underwent thoracentesis pleural fluid diagnostic still pending Pulmonary consulted discussed source abdominal pain still unclear CT reviewed tap the ascites for diagnostic evaluation if pain continues GI consulted HBA1c ( goal <7.0%) , Renal functions, Liver panel every 3 months Monitor vitamin B12 levels Optimize CHERYL-inhibitor and statin Routine glucose monitoring. Watch for Hypoglycemia. BMI goal < 25 IV fluid resuscitation Monitor lactic acid levels Repeat CBC CMP p.o. antibiotic Omnicef Video swallow studies shows no aspiration CT negative for PE noted for infiltrates Creatinine 1.9 And gentle hydration. Avoid nephrotoxic drugs. Monitor antihypertensive drugs Avoid NSAIDs. Routine CMP monitor GFR. Monitor electrolytes potassium levels. Potassium 3.2 Potassium supplement magnesium levels 2.0 Dose antibiotics depending on creatinine clearance Routine follow-up with PCP and custodian recommended ANEMIA H&H 10.2/32.3 Secondary to AVM as indicated by colonoscopy. Iron supplement if needed high risk for GI bleed that is why anticoagulation was on hold History of atrial fibrillation not on any anticoagulants due to GI bleed Spoke to patient's in detail answered all questions also discuss possibility of VAT procedure prognosis poor Time Spent With Patient Time: DVT prophylaxis. GI prophylaxis. All records reviewed Discussed plan of care with the nursing staff and with the patient in detail. Answered all questions and concerns from the patient. All labs have been reviewed. Code status updated dictation may have been done utilizing a voice recognition system. Attempts have been made to correct errors. However, there may be uncorrected grammatical, spelling, and recognition errors present. Subjective Date/time seen: 03/18/22 10:16 Interval history: Have patient still complains of right-sided abdominal pain also feels some bloated. Patient is status post ultrasound and guided thoracenteses final results still awaiting Exam Narrative: GENERAL: Well appearing, no acute distress. HEAD: Normocephalic, atraumatic. NECK: Supple. No adenopathy, no masses. RESPIRATORY: Airway patent, respirations nonlabored. Clear to auscultation bilaterally, no rales, rhonchi, wheezing. CARDIOVASCULAR: Regular rate and rhythm without murmurs, rubs, or gallops. Peripheral pulses 2+ and equal bilaterally. ABDOMINAL: Soft, right upper quadrant tender, nondistended, no hepatosplenomegaly. Normoactive BS. MUSCULOSKELETAL: no Epigastric and no hypochondrial tenderness SKIN: Warm, dry, normal color. No rashes. NEURO: A&O X3. Moves all extremities PSYCHIATRIC: Appropriate mood and affect. Normal interaction. Objective Data Vital Signs Vital Signs: Vital Signs - 24 hr 03/17/22 12:00 03/17/22 16:00 03/17/22 20:41 Temperature 36.3 C L Pulse Rate 92 87 96 Respiratory Rate 20 Blood Pressure 109/65 Pulse Oximetry 96 03/17/22 20:00 03/18/22 00:00 03/18/22 04:00 Temperature Pulse Rate 92 83 67 Respiratory Rate Blood Pressure Pulse Oximetry 03/18/22 05:34 03/18/22 09:39 Temperature 36.6 C Pulse Rate 81 94 Respiratory Rate 20 Blood Pressure 101/58 L Pulse Oximetry 97 Intake/Output Intake/Output: Intake & Output 03/15/22 03/16/22 03/17/22 03/18/22 23:59 23:59 23:59 23:59 Inta
--- NOTE | 2022-03-18 10:21 | PM.PNPUL ---
Progress Note: A&P Assessment and Plan (1) Pleural effusion: Code(s): J90 - Pleural effusion, not elsewhere classified Status: Acute Assessment and Plan: 86-year-old man presented with right upper quadrant abdominal pain of 1 day duration. Diagnostic studies have shown moderately large right pleural effusion, right lower lobe consolidation with air bronchogram related to pneumonia and or atelectasis, ascites and, and probable liver cirrhosis by abdominal CT. The patient had had some cough with blood tinged sputum for several days prior to this admission. He remains on room air, continues to have right upper abdominal quadrant pain but less than before, and no hemoptysis over the last 48 hours. Recent chest imaging studies showed increasing right pleural effusion since admission. Patient has been on oral antibiotics. WBC not elevated. he underwent right thoracentesis yesterday. Pleural fluid did not look hemorrhagic per radiologist. Fluid RBC count could not be measured. pleural fluid pH not compatible with empyema. remaining pleural fluid tests pending. Given 2 witnessed episodes of coughing with sipping water over the last 2 days the patient may have dysphagia with aspiration. Of note the patient had a negative a video swallow study. the patient's history of cough with blood tinged sputum in conjunction with the diagnostic imaging studies showing right lower lobe consolidation / atelectasis and pleural effusion is compatible with pneumonia, possibly aspiration pneumonia or community-acquired pneumonia. So far there is no evidence of empyema by pleural fluid pH. Complicated parapneumonic effusion is still a possibility while waiting other pleural fluid studies like LDH, glucose. There is clinical improvement over the last 48 hours as patient no longer has cough sputum production or hemoptysis. He continues to have right upper quadrant pain. He has no leukocytosis. Etiology of sub diaphragmatic fluid collection unclear at this point. The patient has no clinical history of cirrhosis although recent CTs raised that possibility. Plan: the case was discussed at length with the hospitalist. I would suggest to switch patient to oral Augmentin to cover for possible aspiration pneumonia. will continue to monitor for signs of increasing right pleural effusion with repeat chest x-ray or chest CT. Patient should be started on DVT prophylaxis. Ordered incentive spirometry. (2) Acute on chronic renal failure: Code(s): N17.9 - Acute kidney failure, unspecified; N18.9 - Chronic kidney disease, unspecified Status: Acute (3) Atrial fibrillation: Code(s): I48.91 - Unspecified atrial fibrillation Status: Acute (4) Diabetes 1.5, managed as type 2: Code(s): E13.9 - Other specified diabetes mellitus without complications Status: Chronic (5) Ascites: Code(s): R18.8 - Other ascites Status: Acute (6) Interstitial lung disease: Code(s): J84.9 - Interstitial pulmonary disease, unspecified Status: Acute (7) Dysphagia: Code(s): R13.10 - Dysphagia, unspecified Status: Acute Subjective Date/time seen: 03/18/22 10:21 Interval history: patient has no new respiratory symptoms. Has had no hemoptysis over the last 36 hours. Patient was observed when asked to take a sip of water. He again started coughing right after drinking water. He had a similar episode yesterday. Patient underwent thoracentesis yesterday. Pleural fluid pH not consistent with empyema. Review of Systems Review of Systems: All systems reviewed & are unremarkable except as noted in HPI and below ( HPI and below) Exam Narrative: GENERAL APPEARANCE: Well developed, well nourished, alert and cooperative, and appears to be in no acute distress while on room air SKIN: Inspection of the skin reveals no rashes, ulcerations or petechiae. HEENT: Sclerae anicteric and conjunct
--- NOTE | 2022-03-18 12:23 | PCOTNOTE ---
Attempted to see pt for Occupational Therapy treatment. Pt was in bed, with family present. Pt was very frustrated and states his stomach is hurting. Pt was encouraged to get out of bed for continued strengthening and to decrease pressure sores occurring, perform therapeutic activities or self care tasks. Pt refused each thing and states If I were to punch you in the mouth would that be better... , he also told his family to get out as well. Pt was educated on the importance of participation in therapy however, pt becomes even more frustrates. RN was made aware of pt's refusal. Will continue per poc duration/frequency tomorrow.
[2022-03-18 12:41] LABS: Glucose Point of Care 214 mg/dl (65-105)
[2022-03-18] MEDS: POTASSIUM CHLORIDE 20 MEQ PACKET (FOR LIQUID) PO (12:53)
[2022-03-18] MEDS: CEFDINIR 300 MG CAPSULE PO (12:54)
[2022-03-18] MEDS: INSULIN ASPART (*BKC) 100 UNITS/ML SUB-Q (12:55)
[2022-03-18 14:49] LABS: Glucose Point of Care 169 mg/dl (65-105)
[2022-03-18 17:34] LABS: Glucose Point of Care 158 mg/dl (65-105)
[2022-03-18 20:42] LABS: Glucose Point of Care 208 mg/dl (65-105)
[2022-03-19] VITALS (10 sets, daily range): BP systolic 101–141; BP diastolic 58–72; PULSE 79–88; RESP 18–22; TEMP 36.1–36.8; O2SAT 93–98
[2022-03-19] MEDS: traMADol HCL (*CRX) 25 MG TABLET PO (05:43)
[2022-03-19 06:15] LABS: Hematocrit 30.8 % (42.0-52.0); Hemoglobin 10.1 g/dL (14.0-18.0); Immature Platelet Fraction Pct 8.9 % (0.9-11.2); Mean Corpuscular HGB Conc 32.8 g/dl (32-36); Mean Corpuscular Hemoglobin 30.1 pg (26-34); Mean Corpuscular Volume 91.9 fl (80-100); Mean Platelet Volume 12.7 fl (7.4-10.4); Platelet Count Result 65 k/mm3 (150-375); Red Blood Count 3.35 M/mm3 (4.6-6.20); Red Cell Distribution Width 15.3 % (11.5-14.5); White Blood Count 4.7 K/mm3 (4.5-10.0)
[2022-03-19 06:29] LABS: Anion Gap 5 mmol/L (8-16); Blood Urea Nitrogen 53 mg/dL (9-20); Calcium 7.7 mg/dL (8.4-10.2); Carbon Dioxide 21 mmol/L (22-30); Chloride 106 mmol/L (98-107); Estimated CRCL calculation 26 ml/min; Estimated Glomerular Filt Rate 36; Glucose 135 mg/dL (65-110); Magnesium 1.9 mg/dL (1.6-2.3); Potassium 3.4 mmol/L (3.4-5.0); Sodium 132 mmol/L (137-145)
[2022-03-19 08:40] LABS: Glucose Point of Care 138 mg/dl (65-105)
[2022-03-19] MEDS: FERROUS SULFATE DRIED 142 MG TABCR PO (10:00)
[2022-03-19] MEDS: ASPIRIN 81 MG CHEWABLE TABLET PO (10:00)
[2022-03-19] MEDS: POTASSIUM CHLORIDE 20 MEQ TABLET.ER 40 MEQ PO ×2 (10:00→17:52)
[2022-03-19] MEDS: FUROSEMIDE INJ 40 MG/4 ML VIAL IV PUSH (10:01)
[2022-03-19] MEDS: ATORVASTATIN 20 MG TABLET PO (10:01)
[2022-03-19] MEDS: FOLIC ACID 1 MG TABLET PO (10:01)
[2022-03-19] MEDS: METOPROLOL SUCCINATE EXT REL 25 MG TABCR PO (10:02)
[2022-03-19] MEDS: PANTOPRAZOLE SODIUM IV 40 MG VIAL IV PUSH ×2 (10:02→20:57)
[2022-03-19] MEDS: TAMSULOSIN HCL 0.4 MG CAPSULE 0.8 MG PO ×2 (10:03→17:52)
--- NOTE | 2022-03-19 10:51 | PM.PNPUL ---
Progress Note: A&P Assessment and Plan (1) Pleural effusion: Code(s): J90 - Pleural effusion, not elsewhere classified Status: Acute Assessment and Plan: 86-year-old man presented with right upper quadrant abdominal pain of 1 day duration. Diagnostic studies have shown moderately large right pleural effusion, right lower lobe consolidation with air bronchogram related to pneumonia and or atelectasis, ascites and, and probable liver cirrhosis by abdominal CT. The patient had had some cough with blood tinged sputum for several days prior to this admission. He remains on room air, continues to have right upper abdominal quadrant pain but less than before, and no hemoptysis over the last 48 hours. Recent chest imaging studies showed increasing right pleural effusion since admission. Patient has been on oral antibiotics. WBC not elevated. he underwent right thoracentesis yesterday. Pleural fluid did not look hemorrhagic per radiologist. Fluid RBC count could not be measured. pleural fluid pH not compatible with empyema. remaining pleural fluid tests pending. Given 2 witnessed episodes of coughing with sipping water over the last 2 days the patient may have dysphagia with aspiration. Of note the patient had a negative a video swallow study. the patient's history of cough with blood tinged sputum in conjunction with the diagnostic imaging studies showing right lower lobe consolidation / atelectasis and pleural effusion is compatible with pneumonia, possibly aspiration pneumonia or community-acquired pneumonia. So far there is no evidence of empyema by pleural fluid pH. Complicated parapneumonic effusion is still a possibility while waiting other pleural fluid studies like LDH, glucose. There is clinical improvement over the last 48 hours as patient no longer has cough sputum production or hemoptysis. He continues to have right upper quadrant pain. He has no leukocytosis. Etiology of sub diaphragmatic fluid collection unclear at this point. The patient has no clinical history of cirrhosis although recent CTs raised that possibility. Plan: Continue with incentive spirometry,. will continue to monitor for signs of increasing right pleural effusion with repeat chest x-ray in am. (2) Acute on chronic renal failure: Code(s): N17.9 - Acute kidney failure, unspecified; N18.9 - Chronic kidney disease, unspecified Status: Acute (3) Atrial fibrillation: Code(s): I48.91 - Unspecified atrial fibrillation Status: Acute (4) Diabetes 1.5, managed as type 2: Code(s): E13.9 - Other specified diabetes mellitus without complications Status: Chronic (5) Ascites: Code(s): R18.8 - Other ascites Status: Acute (6) Interstitial lung disease: Code(s): J84.9 - Interstitial pulmonary disease, unspecified Status: Acute (7) Dysphagia: Code(s): R13.10 - Dysphagia, unspecified Status: Acute Subjective Date/time seen: 03/19/22 10:51 Interval history: Patient has no new respiratory symptoms. He stated he is doing better over the last couple of days. Started incentive spirometry. Still spending most of the day in bed. No hemoptysis. Review of Systems Review of Systems: All systems reviewed & are unremarkable except as noted in HPI and below ( HPI and below) Exam Narrative: GENERAL APPEARANCE: Well developed, well nourished, alert and cooperative, and appears to be in no acute distress while on room air SKIN: Inspection of the skin reveals no rashes, ulcerations or petechiae. HEENT: Sclerae anicteric and conjunctivae pink and moist. Extraocular movements were intact and pupils were equal, round. The oral mucosa, hard and soft palate, tongue and posterior pharynx were normal. NECK: Supple. There was no thyroid enlargement, and no tenderness, or masses were felt. CHEST: Normal AP diameter and normal contour without any kyphoscoliosis. LUNGS: d
[2022-03-19 12:33] LABS: Glucose Point of Care 229 mg/dl (65-105)
[2022-03-19] MEDS: INSULIN ASPART (*BKC) 100 UNITS/ML SUB-Q (12:45)
[2022-03-19] MEDS: CEFDINIR 300 MG CAPSULE PO (12:47)
--- NOTE | 2022-03-19 12:49 | PM.IMPN ---
Progress Note: A&P Assessment and Plan (1) Abdominal pain: Code(s): R10.9 - Unspecified abdominal pain Status: Acute (2) Pneumonia: Code(s): J18.9 - Pneumonia, unspecified organism Status: Acute (3) Stage 3b chronic kidney disease: Code(s): N18.32 - Chronic kidney disease, stage 3b Status: Chronic (4) Atrial fibrillation: Code(s): I48.91 - Unspecified atrial fibrillation Status: Acute (5) Hypertension: Code(s): I10 - Essential (primary) hypertension Status: Chronic Plan right-sided pleural effusion. Underwent thoracentesis pleural fluid diagnostic and so for negative for any microbial Pulmonary consulted discussed source abdominal pain still unclear CT reviewed Patient abdominal pain lot better GI consulted HBA1c ( goal <7.0%) , Renal functions, Liver panel every 3 months Monitor vitamin B12 levels Optimize CHERYL-inhibitor and statin Routine glucose monitoring. Watch for Hypoglycemia. BMI goal < 25 IV fluid resuscitation Monitor lactic acid levels Repeat CBC CMP p.o. antibiotic Omnicef Video swallow studies shows no aspiration CT negative for PE noted for infiltrates Creatinine 1.8 Avoid nephrotoxic drugs. Monitor antihypertensive drugs Avoid NSAIDs. Routine CMP monitor GFR. 36 Monitor electrolytes potassium levels. Potassium 3.4 Potassium supplement as needed magnesium levels 2.0 Dose antibiotics depending on creatinine clearance Routine follow-up with PCP and customer professional recommended ANEMIA H&H stable Secondary to AVM as indicated by colonoscopy. Iron supplement if needed high risk for GI bleed that is why anticoagulation was on hold History of atrial fibrillation not on any anticoagulants due to GI bleed Spoke to patient's in detail answered all questions also discuss possibility of VAT procedure prognosis poor spoke patient his and daughter in detail answered all questions Spoke to nursing staff in detail Time Spent With Patient Time: DVT prophylaxis. GI prophylaxis. All records reviewed Discussed plan of care with the nursing staff and with the patient in detail. Answered all questions and concerns from the patient. All labs have been reviewed. Code status updated dictation may have been done utilizing a voice recognition system. Attempts have been made to correct errors. However, there may be uncorrected grammatical, spelling, and recognition errors present. Subjective Date/time seen: 03/19/22 12:49 Interval history: Patient much more alert and awake sitting up on the bed no chest pain or shortness for breath abdominal pain much better. Family at bedside spoke to family and patient at length answered all questions Exam Narrative: GENERAL: Well appearing, well-nourished, non-toxic, in no acute distress. HEAD: Normocephalic, atraumatic. NECK: Supple. No adenopathy, no masses. RESPIRATORY: Airway patent, respirations nonlabored. Clear to auscultation bilaterally, no rales, rhonchi, wheezing. CARDIOVASCULAR: Regular rate and rhythm without murmurs, rubs, or gallops. Peripheral pulses 2+ and equal bilaterally. ABDOMINAL: Soft, nontender, nondistended, no hepatosplenomegaly. Normoactive BS. MUSCULOSKELETAL: no Epigastric and no hypochondrial tenderness SKIN: Warm, dry, normal color. No rashes. NEURO: A&O X3. Moves all extremities PSYCHIATRIC: Appropriate mood and affect. Normal interaction. Objective Data Vital Signs Vital Signs: Vital Signs - 24 hr 03/18/22 14:00 03/18/22 16:00 03/18/22 20:23 Temperature 36.0 C L 36.6 C Pulse Rate 85 82 88 Respiratory Rate 18 20 Blood Pressure 108/57 L 110/62 Pulse Oximetry 100 100 03/18/22 20:00 03/19/22 00:00 03/19/22 04:00 Temperature Pulse Rate 85 85 87 Respiratory Rate Blood Pressure Pulse Oximetry 03/19/22 10:02 Temperature Pulse Rate 86 Respiratory Rate Blood Pressure Pulse Oximetry Intake/Output Inta
[2022-03-19 17:53] LABS: Glucose Point of Care 145 mg/dl (65-105)
[2022-03-19 21:17] LABS: Glucose Point of Care 212 mg/dl (65-105)
[2022-03-20] VITALS (11 sets, daily range): BP systolic 107–138; BP diastolic 55–72; PULSE 74–89; RESP 18–96; TEMP 36.6–36.8; O2SAT 92–97
[2022-03-20 06:08] LABS: Alanine Aminotransferase 47 U/L (6-50); Albumin Level 2.5 g/dL (3.5-5.1); Alkaline Phosphatase 244 U/L (38-126); Anion Gap 3 mmol/L (8-16); Aspartate Amino Transferase 58 U/L (17-59); Blood Urea Nitrogen 49 mg/dL (9-20); Calcium 7.8 mg/dL (8.4-10.2); Carbon Dioxide 23 mmol/L (22-30); Chloride 105 mmol/L (98-107); Estimated CRCL calculation 26 ml/min; Estimated Glomerular Filt Rate 36; Glucose 146 mg/dL (65-110); Magnesium 1.9 mg/dL (1.6-2.3); Potassium 3.8 mmol/L (3.4-5.0); Sodium 131 mmol/L (137-145)
[2022-03-20 06:20] LABS: Hematocrit 32.9 % (42.0-52.0); Hemoglobin 10.6 g/dL (14.0-18.0); Immature Platelet Fraction Pct 9.6 % (0.9-11.2); Mean Corpuscular HGB Conc 32.2 g/dl (32-36); Mean Corpuscular Hemoglobin 29.7 pg (26-34); Mean Corpuscular Volume 92.2 fl (80-100); Mean Platelet Volume 12.5 fl (7.4-10.4); Platelet Count Result 72 k/mm3 (150-375); Red Blood Count 3.57 M/mm3 (4.6-6.20); Red Cell Distribution Width 15.3 % (11.5-14.5); White Blood Count 5.2 K/mm3 (4.5-10.0)
[2022-03-20 08:55] LABS: Glucose Point of Care 156 mg/dl (65-105)
[2022-03-20] MEDS: FERROUS SULFATE DRIED 142 MG TABCR PO (09:43)
[2022-03-20] MEDS: TAMSULOSIN HCL 0.4 MG CAPSULE 0.8 MG PO ×2 (09:43→18:38)
[2022-03-20] MEDS: FOLIC ACID 1 MG TABLET PO (09:44)
[2022-03-20] MEDS: ATORVASTATIN 20 MG TABLET PO (09:44)
[2022-03-20] MEDS: METOPROLOL SUCCINATE EXT REL 25 MG TABCR PO (09:44)
[2022-03-20] MEDS: ASPIRIN 81 MG CHEWABLE TABLET PO (09:44)
[2022-03-20] MEDS: PANTOPRAZOLE SODIUM IV 40 MG VIAL IV PUSH ×2 (09:45→20:30)
[2022-03-20] MEDS: FUROSEMIDE INJ 40 MG/4 ML VIAL IV PUSH (09:45)
[2022-03-20] MEDS: POTASSIUM CHLORIDE 20 MEQ TABLET.ER 40 MEQ PO (09:45)
--- NOTE | 2022-03-20 12:15 | WPDGICN ---
Assessment and Plan Assessment and plan (1) Right upper quadrant pain: Code(s): R10.11 - Right upper quadrant pain Status: Acute Assessment and Plan: he is tender just below the right costal margin mostly laterally. There is no mass. There seems to be a slight fluid wave. (2) Chest wall tenderness: Code(s): R07.89 - Other chest pain Status: Acute Assessment and Plan: He is very tender over the right lower costal margin. It got much worse after physical therapy (3) Pleural effusion: Code(s): J90 - Pleural effusion, not elsewhere classified Status: Acute Assessment and Plan: he had a thoracentesis. He had he does not recall that today. He states that he had fluid removed from his lower abdomen. Actually however he had 700 cc of dark fluid removed 3 days ago. So far there is no evidence of empyema (4) Cirrhosis: Code(s): K74.60 - Unspecified cirrhosis of liver Status: Acute Assessment and Plan: he denies having had liver disease in the past He had been drinker, drinking beer daily until about 2 years ago. Denies family history of liver disease he was jaundiced when he was about 12 years ago and said to have had hepatitis. his transaminases are normal. At this age I do not know that it is important to know the etiology of his cirrhosis, hence I do not feel it is necessary to obtain serology to rule out autoimmune liver disease etcetera (5) Pneumonia: Code(s): J18.9 - Pneumonia, unspecified organism Status: Acute Assessment and Plan: There was concern that he may have aspiration. He has been eating without difficulty today. (6) Iron deficiency anemia: Code(s): D50.9 - Iron deficiency anemia, unspecified Status: Acute Assessment and Plan: recent EGD and colonoscopy by Dr. Park unremarkable except for rectal varices and some slight blood at the GE junction on endoscopy. His anemia may well be partly due to his chronic kidney disease. Hemoglobin on January 26 was 9.8. On March 12 it was 12.9. Since admission it has however between 10 and 11 with no significant drop. (7) Atrial fibrillation: Code(s): I48.91 - Unspecified atrial fibrillation Status: Acute Assessment and Plan: he has been found have atrial fibrillation on this hospitalization he has been seen by Cardiology. The goal is to control his rate rather than anticoagulate him because he had had hemoptysis on this hospitalization (8) Stage 3b chronic kidney disease: Code(s): N18.32 - Chronic kidney disease, stage 3b Status: Chronic Assessment and Plan: BUN is 49, creatinine 1.8 with no significant change since admission. Anemia is partly or perhaps primarily due to the chronic kidney disease. GI Consult Note Consult date/time: 03/20/22 12:15 HPI: Jaspal Ruggiero is a 86 year old male Whom I am asked to see because of right upper quadrant pain. He was admitted 1 week ago with a cough and pain in the area the right ribs which was worse when he would cough. He does not recall believe the details of the symptoms he had on admission. He states that today he had to go to physical therapy and when they at done with him the pain was worse. Simply clearing his throat gets him a sharp pain in the right lower ribs and right upper quadrant. He had an EGD and colonoscopy 3 days before admission to investigate anemia. He was found have diverticulosis and some rectal AVMs. These were said not to be actively bleeding. 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 CT scan did show cirrhosis. He denies any prior history of liver disease. He states that 1 doctor says 1 thing once as another. He used to drink beer but had not had any for about 2 years. He was jaundiced when he was about 12 years ago. His appetite is good in fact he ate a large breakfast after his physical th
[2022-03-20 12:39] LABS: Glucose Point of Care 249 mg/dl (65-105)
[2022-03-20] MEDS: INSULIN ASPART (*BKC) 100 UNITS/ML SUB-Q (12:46)
[2022-03-20] MEDS: traMADol HCL (*CRX) 25 MG TABLET PO (12:50)
[2022-03-20 17:36] LABS: Glucose Point of Care 178 mg/dl (65-105)
--- NOTE | 2022-03-20 18:40 | PM.IMPN ---
Progress Note: A&P Assessment and Plan (1) Abdominal pain: Code(s): R10.9 - Unspecified abdominal pain Status: Acute Assessment and Plan: See below (2) Pneumonia: Code(s): J18.9 - Pneumonia, unspecified organism Status: Acute Assessment and Plan: see below (3) Stage 3b chronic kidney disease: Code(s): N18.32 - Chronic kidney disease, stage 3b Status: Chronic (4) Atrial fibrillation: Code(s): I48.91 - Unspecified atrial fibrillation Status: Acute (5) Hypertension: Code(s): I10 - Essential (primary) hypertension Status: Chronic Plan Pleural effusion right-sided pleural effusion. Underwent thoracentesis pleural fluid diagnostic and so for negative for any microbial Pulmonary consulted discussed rpt ctchest abdominal pain and ascites CT shows liver cirrhois Patient abdominal pain lot better GI consulted mild ascites on oral lasix was on iv lasix DM HBA1c ( goal <7.0%) , Renal functions, Liver panel every 3 months Monitor vitamin B12 levels Optimize CHERYL-inhibitor and statin Routine glucose monitoring. Watch for Hypoglycemia. BMI goal < [address] today p.o. antibiotic Omnicef Video swallow studies shows no aspiration CT negative for PE noted for infiltrates CKD Creatinine 1.8 Avoid nephrotoxic drugs. Monitor antihypertensive drugs Avoid NSAIDs. Routine CMP monitor GFR. 36 Monitor electrolytes potassium levels. Potassium 3.4 ANEMIA H&H stable Secondary to AVM as indicated by colonoscopy. Iron supplement if needed high risk for GI bleed that is why anticoagulation was on hold AF History of atrial fibrillation not on any anticoagulants due to GI bleed Subjective Date/time seen: 03/20/22 18:40 Interval history: 86-year-old male patient to has been coughing for the last 2 days.? He has also had clear sputum.? The patient woke up at 1:00 a.m. this morning and complained of right rib pain.? He has a history of heart disease with to coronary stents.? The patient not been taking anything for diabetes but his blood sugar was 250 when EMS saw the patient.? EKG showed a right bundle branch block and ischemia age indeterminate.? The patient was wanting to go to his primary care doctor Dr. Morse but was not able to get in until Sunday. Pt admitted for abdominal pain, ascites, dysphagia, pneumonia and R pleural effusion thoracentesis Sp thoracentesis Pt has known liver cirrhosis. Pt seeing Pulmonology and GI here in the hospital. Patient much more alert and awake sitting up on the bed no chest pain or shortness for breath abdominal pain much better. I will order ct chest without contrast to revaluate the effusion and speech therapy or his dysphagia Review of Systems Review of Systems: Pt feels much better no abdominal pains or SOB Pt has some swallowing issues Exam Narrative: GENERAL: Well appearing, well-nourished NECK: Supple. No adenopathy, no masses. RESPIRATORY: Airway patent, respirations nonlabored. Clear to auscultation bilaterally, no rales, rhonchi, wheezing. CARDIOVASCULAR: Regular rate and rhythm without murmurs, rubs, or gallops. Peripheral pulses 2+ and equal bilaterally. ABDOMINAL: Soft, nontender, nondistended, no hepatosplenomegaly. Normoactive BS. MUSCULOSKELETAL: no Epigastric and no hypochondrial tenderness SKIN: Warm, dry, normal color. No rashes. NEURO: A&O X3. Moves all extremities PSYCHIATRIC: Appropriate mood and affect. Normal interaction. Objective Data Vital Signs Vital Signs: Vital Signs - 24 hr 03/19/22 21:48 03/19/22 20:00 03/20/22 00:00 Temperature 36.8 C Pulse Rate 80 81 85 Respiratory Rate 22 H Blood Pressure 141/72 H Pulse Oximetry 93 Oxygen Delivery 03/20/22 04:00 03/20/22 06:00 03/20/22 09:44 Temperature 36.8 C Pulse Rate 81 74 89 Respiratory Rate 96 H Blood Pressure 138/69 Pulse Oximetry 92 Oxygen Deliver
[2022-03-20 20:35] LABS: Glucose Point of Care 232 mg/dl (65-105)
[2022-03-21] VITALS (9 sets, daily range): BP systolic 98–130; BP diastolic 55–70; PULSE 68–92; RESP 16–22; TEMP 36.6–36.9; O2SAT 92–99
[2022-03-21 06:00] LABS: Hematocrit 29.8 % (42.0-52.0); Hemoglobin 9.8 g/dL (14.0-18.0); Immature Platelet Fraction Pct 8.4 % (0.9-11.2); Mean Corpuscular HGB Conc 32.9 g/dl (32-36); Mean Corpuscular Hemoglobin 30.2 pg (26-34); Mean Platelet Volume 12.2 fl (7.4-10.4); Platelet Count Result 83 k/mm3 (150-375); Red Blood Count 3.24 M/mm3 (4.6-6.20); Red Cell Distribution Width 15.5 % (11.5-14.5); White Blood Count 4.8 K/mm3 (4.5-10.0)
[2022-03-21 06:11] LABS: Anion Gap 3 mmol/L (8-16); Blood Urea Nitrogen 42 mg/dL (9-20); Calcium 7.5 mg/dL (8.4-10.2); Carbon Dioxide 23 mmol/L (22-30); Chloride 109 mmol/L (98-107); Estimated CRCL calculation 27 ml/min; Estimated Glomerular Filt Rate 38; Glucose 115 mg/dL (65-110); Magnesium 1.7 mg/dL (1.6-2.3); Potassium 3.9 mmol/L (3.4-5.0); Sodium 135 mmol/L (137-145)
--- NOTE | 2022-03-21 07:39 | WPDGIPROGNO ---
Progress Note: A&P Assessment and Plan (1) Right upper quadrant pain: Code(s): R10.11 - Right upper quadrant pain Status: Acute Assessment and Plan: This is gone now. I am fairly certain that it was due to pleural pain. I told him that it is far as I am concerned he would not need to stay in the hospital (2) Chest wall tenderness: Code(s): R07.89 - Other chest pain Status: Acute Assessment and Plan: Nearly completely resolved. Likely secondary to paracentesis and or effusion. (3) Pleural effusion: Code(s): J90 - Pleural effusion, not elsewhere classified Status: Acute Assessment and Plan: This appears to be a sterile effusion. G stain was negative. (4) Cirrhosis: Code(s): K74.60 - Unspecified cirrhosis of liver Status: Acute Assessment and Plan: He has well-compensated cirrhosis. I do not plan any additional workup that needs to be done as an inpatient and therefore from my perspective he can be discharged and follow up with me as an outpatient. (5) Pneumonia: Code(s): J18.9 - Pneumonia, unspecified organism Status: Acute (6) Iron deficiency anemia: Code(s): D50.9 - Iron deficiency anemia, unspecified Status: Acute Assessment and Plan: Hemoglobin is stable. Recent workup by Dr. Park negative for any significant bleeding site (7) Atrial fibrillation: Code(s): I48.91 - Unspecified atrial fibrillation Status: Acute Assessment and Plan: he has been found have atrial fibrillation on this hospitalization ?he has been seen by Cardiology.? The goal is to control his rate rather than anticoagulate him because he had had hemoptysis on this hospitalization (8) Stage 3b chronic kidney disease: Code(s): N18.32 - Chronic kidney disease, stage 3b Status: Chronic Assessment and Plan: Creatinine and BUN are stable . He is followed and managed by Dr. Stepan Hendricks From my perspective he can be discharged. Subjective Date/time seen: Jaspal Ruggiero is a 86 year old male? ? Whom I am asked to see because of right upper quadrant pain.? He was admitted 1 week ago with a cough and pain in the area the right ribs which was worse when he would cough.? He does not recall believe the details of the symptoms he had on admission.? He states that today he had to go to physical therapy and when they at done with him the pain was worse.? Simply clearing his throat gets him a sharp pain in the? right lower ribs and right upper quadrant. ? He had an EGD and colonoscopy 3 days before admission to investigate anemia.? He was found have diverticulosis and some rectal AVMs.? These were said not to be actively bleeding.? 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 CT scan did show cirrhosis.? He denies any prior history of liver disease.? He states that 1 doctor says 1 thing once as another.? He used to drink beer but had not had any for about 2 years.? He was jaundiced when he was about 12 years ago.? His appetite is good in fact he ate a large breakfast after his physical therapy.? He denies vomiting or nausea.? He feels that his stools have been loose lately 03/21/22 07:39 States he feels much better today. He slept at least 4 hours last night. He was able to eat without any difficulty last night, except that the fish was a bit dry. The pain that he had been having in the right costal margin area is gone. He states it is only very slightly sore now. He states that he no longer has pain if he coughs or takes a deep breath. Explain to him that that pain was a pleuritic pain due to either the of fusion and or having had the paracentesis. Exam Const: General: alert and tired appearing Orientation/consciousness: patient oriented x3 Chest: Chest palpation & inspection: tenderness (Only minimal tenderness today) Resp: Effort & Inspection: other ( he expresses discomfort with a deep breath) Auscul
[2022-03-21 08:48] LABS: Glucose Point of Care 106 mg/dl (65-105)
[2022-03-21] MEDS: FERROUS SULFATE DRIED 142 MG TABCR PO (09:00)
[2022-03-21] MEDS: ATORVASTATIN 20 MG TABLET PO (09:00)
[2022-03-21] MEDS: METOPROLOL SUCCINATE EXT REL 25 MG TABCR PO (09:00)
[2022-03-21] MEDS: FOLIC ACID 1 MG TABLET PO (09:00)
[2022-03-21] MEDS: ASPIRIN 81 MG CHEWABLE TABLET PO (09:00)
[2022-03-21] MEDS: PANTOPRAZOLE SODIUM IV 40 MG VIAL IV PUSH ×2 (09:00→20:30)
[2022-03-21] MEDS: FUROSEMIDE INJ 40 MG/4 ML VIAL IV PUSH (09:00)
[2022-03-21] MEDS: TAMSULOSIN HCL 0.4 MG CAPSULE 0.8 MG PO ×2 (09:00→17:24)
--- NOTE | 2022-03-21 09:46 | PCNFU ---
Nutrition Follow-Up Complete: Unintentional weight loss related to reduced appetite as evidenced by pt report Goal: PO intake 75% or greater for meals and supplements Patient is meeting goal. No new goal. Pt current nutrition is Heart Healthy. Last recorded weight is 80.1 kg. Bowel Motility: +BM reported 03/21 Labs Reviewed:Glu 115, BUN 42, Cr 1.7,Na 135, GFR 38 Meds Noted:Folic Acid, Lasix, Amaryl, Protonix Skin: WNL Additional Notes: Nutrition follow up-Spoke with patient today. He is eating 100% of meals. He is also consuming 100% of ensure compact BID providing 220 kcals and 9 gms protein. Agree with diet orders. Monitor intake, wt, labs. Follow up in 7 days.
--- NOTE | 2022-03-21 11:41 | PM.PNPUL ---
Progress Note: A&P Assessment and Plan (1) Pleural effusion: Code(s): J90 - Pleural effusion, not elsewhere classified Status: Acute Assessment and Plan: 86-year-old man presented with right upper quadrant abdominal pain of 1 day duration. Diagnostic studies have shown moderately large right pleural effusion, right lower lobe consolidation with air bronchogram related to pneumonia and or atelectasis, ascites and, and probable liver cirrhosis by abdominal CT. The patient had had some cough with blood tinged sputum for several days prior to this admission. He remains on room air, continues to have right upper abdominal quadrant pain but less than before, and no hemoptysis over the last 4 days hours. he underwent thoracentesis 4 days ago. Pleural fluid analysis still pending. There was no evidence of empyema by pleural fluid the pH. On physical exam the patient continues to have decreased breath sounds at right base posteriorly as before. Patient has no leukocytosis. He was evaluated by GI services for sub diaphragmatic fluid collection. Plan: Overall respiratory status stable over the last 4 days, but etiology of right pleural effusion remains elusive. As stated pleural fluid analysis to exclude complicated parapneumonic effusion is still pending. Will proceed with repeat chest CT to assess size of a right pleural effusion patient may need repeat thoracentesis. patient needs to be evaluated by speech pathology services for dysphagia with liquids. 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 Remaining on room air. Right upper quadrant pain less than before. Remains afebrile. cough has abated. He had thoracentesis 4 days ago, pleural fluid analysis still pending. Review of Systems Review of Systems: All systems reviewed & are unremarkable except as noted in HPI and below ( In HPI and below) Exam Narrative: GENERAL APPEARANCE: Well developed, well nourished, alert and cooperative, and appears to be in no acute distress while on room air SKIN: Inspection of the skin reveals no rashes, ulcerations or petechiae. HEENT: Sclerae anicteric and conjunctivae pink and moist. Extraocular movements were intact and pupils were equal, round. The oral mucosa, hard and soft palate, tongue and posterior pharynx were normal. NECK: Supple. There was no thyroid enlargement, and no tenderness, or masses were felt. CHEST: Normal AP diameter and normal contour without any kyphoscoliosis. LUNGS: dullness to percussion at decreased breath sounds at right base posteriorly, no wheezing CARDIAC: There was a regular rate and rhythm without any murmurs. ABDOMEN: Soft with normal bowel sounds. mild right upper quadrant tenderness to palpation. There was no organomegaly. LYMPH NODES: No lymphadenopathy was appreciated in the neck. EXTREMITIES: No cyanosis, clubbing or edema. NEUROLOGIC: Alert and oriented x 3. Normal affect. Objective Data Vital Signs Vital Signs: Vital Signs - 24 hr 03/20/22 14:00 03/20/22 12:00 03/20/22 16:00 Temperature 36.7 C Pulse Rate 81 85 86 Respiratory Rate 18 Blood Pressure 107/55 L Pulse Oximetry 97 Oxygen Delivery 03/20/22 20:00 03/20/22 20:00 01
[2022-03-21 12:09] LABS: Glucose Point of Care 259 mg/dl (65-105)
--- NOTE | 2022-03-21 12:18 | PCSTNOTE ---
Please refer to the Bedside Swallow Evaluation in the EMR. Please note, silent aspiration cannot be ruled out at bedside.
[2022-03-21] MEDS: INSULIN ASPART (*BKC) 100 UNITS/ML SUB-Q (12:47)
[2022-03-21] MEDS: CEFDINIR 300 MG CAPSULE PO ×2 (12:48→20:30)
[2022-03-21 14:57] LABS: Glucose Pleural Fluid 118 mg/dL; LDH Pleural Fluid 911 U/L; Total Protein Pleural Fluid 3.2 g/dL
--- NOTE | 2022-03-21 15:08 | PCOTNOTE ---
Attempted to see pt for Occupational Therapy treatment. Per RN, pt is sound asleep and has had difficulty sleeping lately. Due to this reason, pt was not disturbed. Will continue per POC duration/frequency tomorrow.
[2022-03-21 17:33] LABS: Glucose Point of Care 170 mg/dl (65-105)
[2022-03-21 21:03] LABS: Glucose Point of Care 211 mg/dl (65-105)
[2022-03-22] VITALS (10 sets, daily range): BP systolic 110–128; BP diastolic 58–71; PULSE 75–94; RESP 18–22; TEMP 36.2–36.7; O2SAT 92–98
[2022-03-22 05:58] LABS: Hematocrit 30.6 % (42.0-52.0); Hemoglobin 9.9 g/dL (14.0-18.0); Immature Platelet Fraction Pct 8.2 % (0.9-11.2); Mean Corpuscular HGB Conc 32.4 g/dl (32-36); Mean Corpuscular Volume 92.7 fl (80-100); Platelet Count Result 91 k/mm3 (150-375); Red Cell Distribution Width 15.6 % (11.5-14.5)
[2022-03-22 06:04] LABS: Alanine Aminotransferase 47 U/L (6-50); Albumin Level 2.3 g/dL (3.5-5.1); Alkaline Phosphatase 267 U/L (38-126); Anion Gap 3 mmol/L (8-16); Aspartate Amino Transferase 59 U/L (17-59); Bilirubin,Total 0.8 mg/dL (0.2-1.3); Blood Urea Nitrogen 42 mg/dL (9-20); Calcium 7.6 mg/dL (8.4-10.2); Carbon Dioxide 24 mmol/L (22-30); Chloride 104 mmol/L (98-107); Estimated CRCL calculation 27 ml/min; Estimated Glomerular Filt Rate 38; Glucose 211 mg/dL (65-110); Potassium 3.4 mmol/L (3.4-5.0); Sodium 131 mmol/L (137-145)
[2022-03-22 08:20] LABS: Glucose Point of Care 169 mg/dl (65-105)
[2022-03-22] MEDS: CEFDINIR 300 MG CAPSULE PO ×2 (08:43→20:31)
[2022-03-22] MEDS: PANTOPRAZOLE SODIUM IV 40 MG VIAL IV PUSH ×2 (08:43→20:31)
[2022-03-22] MEDS: TAMSULOSIN HCL 0.4 MG CAPSULE 0.8 MG PO ×2 (08:43→17:38)
[2022-03-22] MEDS: ATORVASTATIN 20 MG TABLET PO (08:43)
[2022-03-22] MEDS: FERROUS SULFATE DRIED 142 MG TABCR PO (08:43)
[2022-03-22] MEDS: ASPIRIN 81 MG CHEWABLE TABLET PO (08:44)
[2022-03-22] MEDS: METOPROLOL SUCCINATE EXT REL 25 MG TABCR PO (08:44)
[2022-03-22] MEDS: FOLIC ACID 1 MG TABLET PO (08:44)
[2022-03-22] MEDS: FUROSEMIDE 40 MG TABLET PO (08:44)
--- NOTE | 2022-03-22 11:36 | PM.PNPUL ---
Progress Note: A&P Assessment and Plan (1) Pleural effusion: Code(s): J90 - Pleural effusion, not elsewhere classified Status: Acute Assessment and Plan: 86-year-old man presented with right upper quadrant abdominal pain of 1 day duration. Diagnostic studies have shown moderately large right pleural effusion, right lower lobe consolidation with air bronchogram related to pneumonia and or atelectasis, ascites and, and probable liver cirrhosis by abdominal CT. The patient had had some cough with blood tinged sputum for several days prior to this admission. the patient has been treated with antibiotics. He had right thoracentesis that showed no evidence of empyema by abdominal CT. Remaining fluid tests like glucose and LDH also not consistent with empyema or complicated parapneumonic effusion. On last chest CT the effusion was little changed. Plan: okay to DC patient home on Augmentin for another 10 days. The patient should return to Pulmonary Clinic in about 3-4 weeks for follow-up. I gave him the pulmonary clinic business card to call for an appointment. Will sign off please call with any questions. (2) Acute on chronic renal failure: Code(s): N17.9 - Acute kidney failure, unspecified; N18.9 - Chronic kidney disease, unspecified Status: Acute (3) Atrial fibrillation: Code(s): I48.91 - Unspecified atrial fibrillation Status: Acute (4) Diabetes 1.5, managed as type 2: Code(s): E13.9 - Other specified diabetes mellitus without complications Status: Chronic (5) Ascites: Code(s): R18.8 - Other ascites Status: Acute (6) Interstitial lung disease: Code(s): J84.9 - Interstitial pulmonary disease, unspecified Status: Acute (7) Dysphagia: Code(s): R13.10 - Dysphagia, unspecified Status: Acute Subjective Date/time seen: 03/22/22 11:37 Interval history: patient has no new respiratory symptoms. Afebrile no longer coughing. Remaining on room air. Right upper quadrant pain almost gone. Review of Systems Review of Systems: All systems reviewed & are unremarkable except as noted in HPI and below ( HPI and below) Exam Narrative: GENERAL APPEARANCE: Well developed, well nourished, alert and cooperative, and appears to be in no acute distress while on room air SKIN: Inspection of the skin reveals no rashes, ulcerations or petechiae. HEENT: Sclerae anicteric and conjunctivae pink and moist. Extraocular movements were intact and pupils were equal, round. The oral mucosa, hard and soft palate, tongue and posterior pharynx were normal. NECK: Supple. There was no thyroid enlargement, and no tenderness, or masses were felt. CHEST: Normal AP diameter and normal contour without any kyphoscoliosis. LUNGS: dullness to percussion at decreased breath sounds at right base posteriorly, no wheezing CARDIAC: There was a regular rate and rhythm without any murmurs. ABDOMEN: Soft with normal bowel sounds. mild right upper quadrant tenderness to palpation. There was no organomegaly. LYMPH NODES: No lymphadenopathy was appreciated in the neck. EXTREMITIES: No cyanosis, clubbing or edema. NEUROLOGIC: Alert and oriented x 3. Normal affect. Objective Data Vital Signs Vital Signs: Vital Signs - 24 hr 03/21/22 14:00 03/21/22 12:00 03/21/22 16:00 Temperature 36.9 C Pulse Rate 87 88 86 Respiratory Rate 16 Blood Pressure 98/55 L Pulse Oximetry 99 Oxygen Delivery 03/21/22 22:00 03/21/22 20:00 03/21/22 20:00 Temperature 36.6 C Pulse Rate 76 92 Respiratory Rate 22 H Blood Pressure 130/70 Pulse Oximetry 92 Oxygen Delivery Room Air 03/22/22 00:00 03/22/22 04:00 03/22/22 06:00 Temperature 36.7 C Pulse Rate 88 84 77 Respiratory Rate 22 H Blood Pressure 128/71 Pulse Oximetry 92 Oxygen Delivery 03/22/22 08:44 Temperature Pulse Rate 77 Respiratory Rate Blood Pressure Pulse Oximetry Oxygen [employer]
--- NOTE | 2022-03-22 11:59 | PCOTNOTE ---
Attempted to see patient this am, however patient sleeping upon entering and refused at this time. When I wake up like this, I feel anuj blurry. Maybe in 30 minutes or so. Come back after lunch.
[2022-03-22 12:33] LABS: Glucose Point of Care 231 mg/dl (65-105)
[2022-03-22] MEDS: INSULIN ASPART (*BKC) 100 UNITS/ML SUB-Q ×2 (13:01→17:38)
[2022-03-22 13:16] LABS: Albumin Pleural Fluid 1.4 g/dL
--- NOTE | 2022-03-22 16:36 | PM.IMPN ---
Progress Note: A&P Assessment and Plan (1) Abdominal pain: Code(s): R10.9 - Unspecified abdominal pain Status: Acute (2) Pneumonia: Code(s): J18.9 - Pneumonia, unspecified organism Status: Acute (3) Stage 3b chronic kidney disease: Code(s): N18.32 - Chronic kidney disease, stage 3b Status: Chronic (4) Atrial fibrillation: Code(s): I48.91 - Unspecified atrial fibrillation Status: Acute (5) Hypertension: Code(s): I10 - Essential (primary) hypertension Status: Chronic Plan # Pleural effusion right-sided pleural effusion. Underwent thoracentesis pleural fluid diagnostic and so for negative for any microbial Pulmonary consulted discussed rpt ctchest reviweed. LDH high on pleural fluid, suggestive of exudative fluid # abdominal pain and ascites CT shows liver cirrhois Patient abdominal pain lot better GI consulted mild ascites on oral lasix was on iv lasix # DM HBA1c ( goal <7.0%) , Renal functions, Liver panel every 3 months Monitor vitamin B12 levels Optimize CHERYL-inhibitor and statin Routine glucose monitoring. Watch for Hypoglycemia. BMI goal < 25 # Dysphagia p.o. antibiotic Omnicef Video swallow studies shows no aspiration CT negative for PE noted for infiltrates # CKD stage III Creatinine 1.8 Avoid nephrotoxic drugs. Monitor antihypertensive drugs Avoid NSAIDs. Routine CMP monitor GFR. 36 Monitor electrolytes potassium levels. Potassium 3.4 # ANEMIA and thrombocytopenia H&H stable Secondary to AVM as indicated by colonoscopy. Iron supplement if needed high risk for GI bleed that is why anticoagulation was on hold # AF History of atrial fibrillation not on any anticoagulants due to GI bleed Subjective Date/time seen: 03/22/22 16:36 Interval history: 86-year-old male patient to has been coughing for the last 2 days.? He has also had clear sputum.? The patient woke up at 1:00 a.m. this morning and complained of right rib pain.? He has a history of heart disease with to coronary stents.? The patient not been taking anything for diabetes but his blood sugar was 250 when EMS saw the patient.? EKG showed a right bundle branch block and ischemia age indeterminate.? The patient was wanting to go to his primary care doctor Dr. Morse but was not able to get in until Sunday. Pt admitted for abdominal pain, ascites, dysphagia, pneumonia and R pleural effusion thoracentesis Sp thoracentesis Pt has known liver cirrhosis. Pt seeing Pulmonology and GI here in the hospital. 03/22/2022: patient is doing well. no new compalints. feels so so. not much cough , which has imporved. Review of Systems Review of Systems: All systems reviewed & are unremarkable except as noted in HPI and below Exam Narrative: GENERAL: Well appearing, well-nourished NECK: Supple. No adenopathy, no masses. RESPIRATORY: Airway patent, respirations nonlabored. Clear to auscultation bilaterally, no rales, rhonchi, wheezing. CARDIOVASCULAR: Regular rate and rhythm without murmurs, rubs, or gallops. Peripheral pulses 2+ and equal bilaterally. ABDOMINAL: Soft, nontender, nondistended, no hepatosplenomegaly. Normoactive BS. MUSCULOSKELETAL: no Epigastric and no hypochondrial tenderness SKIN: Warm, dry, normal color. No rashes. NEURO: A&O X3. Moves all extremities PSYCHIATRIC: Appropriate mood and affect. Normal interaction. Objective Data Vital Signs Vital Signs: Vital Signs - 24 hr 03/21/22 22:00 03/21/22 20:00 03/21/22 20:00 Temperature 97.9 F Pulse Rate 76 92 Respiratory Rate 22 H Blood Pressure 130/70 Pulse Oximetry 92 Oxygen Delivery Room Air 03/22/22 00:00 03/22/22 04:00 03/22/22 06:00 Temperature 98.0 F Pulse Rate 88 84 77 Respiratory Rate 22 H Blood Pressure 128/71 Pulse Oximetry 92 Oxygen Delivery 03/22/22 08:44 03/22/22 09:00 03/22/22 09:00 Temperature Pulse Rate 77 94 Respiratory Rate
[2022-03-22 17:29] LABS: Glucose Point of Care 262 mg/dl (65-105)
[2022-03-22] MEDS: ACETAMINOPHEN 325 MG TABLET 650 MG PO (20:30)
[2022-03-22 20:58] LABS: Glucose Point of Care 238 mg/dl (65-105)
[2022-03-23] VITALS (7 sets, daily range): BP systolic 115; BP diastolic 63–65; PULSE 63–81; RESP 18; TEMP 36.4–36.6; O2SAT 97–98
[2022-03-23 05:37] LABS: Hematocrit 27.8 % (42.0-52.0); Mean Corpuscular HGB Conc 32.4 g/dl (32-36); Mean Corpuscular Hemoglobin 30.2 pg (26-34); Mean Corpuscular Volume 93.3 fl (80-100); Mean Platelet Volume 11.9 fl (7.4-10.4); Platelet Count Result 94 k/mm3 (150-375); Red Blood Count 2.98 M/mm3 (4.6-6.20); Red Cell Distribution Width 15.5 % (11.5-14.5); White Blood Count 4.2 K/mm3 (4.5-10.0)
[2022-03-23 05:50] LABS: Anion Gap 3 mmol/L (8-16); Blood Urea Nitrogen 38 mg/dL (9-20); Calcium 7.4 mg/dL (8.4-10.2); Carbon Dioxide 24 mmol/L (22-30); Chloride 104 mmol/L (98-107); Estimated CRCL calculation 29 ml/min; Estimated Glomerular Filt Rate 41; Glucose 91 mg/dL (65-110); Magnesium 1.7 mg/dL (1.6-2.3); Potassium 3.3 mmol/L (3.4-5.0); Sodium 131 mmol/L (137-145)
[2022-03-23 08:34] LABS: Glucose Point of Care 89 mg/dl (65-105)
[2022-03-23] MEDS: CEFDINIR 300 MG CAPSULE PO (09:55)
[2022-03-23] MEDS: FERROUS SULFATE DRIED 142 MG TABCR PO (09:55)
[2022-03-23] MEDS: FOLIC ACID 1 MG TABLET PO (09:55)
[2022-03-23] MEDS: ATORVASTATIN 20 MG TABLET PO (09:55)
[2022-03-23] MEDS: ASPIRIN 81 MG CHEWABLE TABLET PO (09:55)
[2022-03-23] MEDS: TAMSULOSIN HCL 0.4 MG CAPSULE 0.8 MG PO (09:56)
[2022-03-23] MEDS: FUROSEMIDE 40 MG TABLET PO (09:56)
[2022-03-23] MEDS: METOPROLOL SUCCINATE EXT REL 25 MG TABCR PO (09:57)
[2022-03-23] MEDS: PANTOPRAZOLE SODIUM IV 40 MG VIAL IV PUSH (09:58)
[2022-03-23] MEDS: POTASSIUM CHLORIDE 20 MEQ TABLET 40 MEQ PO (09:59)
[2022-03-23 12:22] LABS: Glucose Point of Care 235 mg/dl (65-105)
[2022-03-23] MEDS: INSULIN ASPART (*BKC) 100 UNITS/ML SUB-Q (12:33)
--- NOTE | 2022-03-23 12:34 | PM.DS ---
DS: Admitting Diagnosis Discharge Date 03/23/2022 Admitting Diagnosis chest pain DS: Discharge Diagnosis Discharge Diagnosis (1) Abdominal pain: Code(s): R10.9 - Unspecified abdominal pain Status: Acute (2) Pneumonia: Code(s): J18.9 - Pneumonia, unspecified organism Status: Acute (3) Stage 3b chronic kidney disease: Code(s): N18.32 - Chronic kidney disease, stage 3b Status: Chronic (4) Atrial fibrillation: Code(s): I48.91 - Unspecified atrial fibrillation Status: Acute (5) Hypertension: Code(s): I10 - Essential (primary) hypertension Status: Chronic DS: Summary Hospital Course Hospital Course: # right-sided chest pain: Associated cough. Chest x-ray with right-sided pleural effusion. He underwent thoracentesis. pleural fluid diagnostic Test was done, cultures were negative. Empirically was on antibiotics for parapneumonic effusion. Pulmonary was consulted. Repeat CT chest with stable effusion planned to be treated for continued antibiotics. Okay per Pulmonary to discharge on Augmentin. Follow-up chest x-ray in 2 weeks and follow-up with Pulmonary. # abdominal pain and ascites CT shows liver cirrhois Patient abdominal pain lot better GI consulted mild ascites on oral lasix was on iv lasix # DM HBA1c ( goal <7.0%) , Renal functions, Liver panel every 3 months Monitor vitamin B12 levels Optimize CHERYL-inhibitor and statin Routine glucose monitoring. Watch for Hypoglycemia. BMI goal < 25 # Dysphagia p.o. antibiotic Omnicef Video swallow studies shows no aspiration CT negative for PE noted for infiltrates # CKD stage III Creatinine 1.8 Avoid nephrotoxic drugs. Monitor antihypertensive drugs Avoid NSAIDs. Routine CMP monitor GFR. 36 Monitor electrolytes potassium levels. Potassium 3.4 # ANEMIA and thrombocytopenia H&H stable Secondary to AVM as indicated by colonoscopy. Iron supplement if needed high risk for GI bleed that is why anticoagulation was on hold # AF History of atrial fibrillation not on any anticoagulants due to GI bleed Time Spent with Patient Time attestation: Total time spent providing and/or coordinating discharge services: 45 minutes Exam Narrative: GENERAL: Well appearing, well-nourished NECK: Supple. No adenopathy, no masses. RESPIRATORY: Airway patent, respirations nonlabored. Clear to auscultation bilaterally, no rales, rhonchi, wheezing. CARDIOVASCULAR: Regular rate and rhythm without murmurs, rubs, or gallops. Peripheral pulses 2+ and equal bilaterally. ABDOMINAL: Soft, nontender, nondistended, no hepatosplenomegaly. Normoactive BS. MUSCULOSKELETAL: no Epigastric and no hypochondrial tenderness SKIN: Warm, dry, normal color. No rashes. NEURO: A&O X3. Moves all extremities PSYCHIATRIC: Appropriate mood and affect. Normal interaction. DS: Data Data Completed and Pending Completed studies during hospitalization: Pending at discharge 03/17/22 08:44 Cytology [PTH] Routine Exam Type: ? ? CA echo dop color flow w con Study Info Indications ? ? J90 - Pleural effusion,? not elsewhere classified Complete two-dimensional, color flow and Doppler transthoracic echocardiogram is performed with contrast to opacify the left ventricle and to improve the deliniation of the left ventricle endocardial borders. Account #: ? ? [id number] Contrast/Agitated Saline Contrast/Ag. Saline: ? ? Definity Amount: ? ? 2.00 ml Administered By: ? ? Lute,? Rosa Maria RDCS Existing IV Access: ? ? Yes IV Access Condition: ? ? patent with no signs of infiltration Summary ? 1. Left ventricular chamber dimension is normal. ? 2. Left ventricular systolic function is normal, estimated at 55%. ? 3. There is mildly increased left ventricular wall thickness. ? 4. The left ventricular diastolic function is indeterminate. ? 5. Global longitudinal strain is moderately elevated at -13
[2022-03-23 14:56] LABS: EDCOVIDSCREEN Negative (Negative)
== END 2022-03-23 15:21 | disposition swing bed (61) | DRG 187 ==
LOC: ANHIMU 03-13 10:47 → ANH3MED 03-14 12:31 → ANHIMU 03-24 10:00
PROVIDERS: Family Medicine; Internal Medicine; Internal Medicine Pulmonary Disease; Nurse Practitioner; Student in an Organized Health Care Education/Training Program; Admitting Provider Chiropractor; PCP Internal Medicine; Visit Provider Internal Medicine
DX: J90 Pleural effusion, not elsewhere classified (principal); I31.39 Other pericardial effusion (noninflammatory); R18.8 Other ascites; E11.22 Type 2 diabetes mellitus with diabetic chronic kidney disease; D63.1 Anemia in chronic kidney disease; D69.6 Thrombocytopenia, unspecified; I48.91 Unspecified atrial fibrillation; I12.9 Hypertensive chronic kidney disease with stage 1 through stage 4 chronic kidney disease, or unspecified chronic kidney disease; D50.9 Iron deficiency anemia, unspecified; N40.0 Benign prostatic hyperplasia without lower urinary tract symptoms; N18.32 Chronic kidney disease, stage 3b; J11.89 Influenza due to unidentified influenza virus with other manifestations; K31.819 Angiodysplasia of stomach and duodenum without bleeding; K74.60 Unspecified cirrhosis of liver; R13.10 Dysphagia, unspecified; Z20.822 Contact with and (suspected) exposure to COVID-19; Z95.1 Presence of aortocoronary bypass graft; Z87.891 Personal history of nicotine dependence; Z79.82 Long term (current) use of aspirin; Z79.899 Other long term (current) drug therapy; Z83.3 Family history of diabetes mellitus; Z82.49 Family history of ischemic heart disease and other diseases of the circulatory system
CPT/HCPCS: 32555; 36415; 71045; 71250; 74176; 76705; 76775; 78580; 80048; 80053; 82040; 82042; 82274; 82570; 82945; 82948; 83036; 83615; 83735; 83880; 83935; 83986; 84100; 84132; 84157; 84300; 84443; 84478; 84484; 84540; 85014; 85018; 85025; 85027; 85055; 85610; 85730; 87040; 87070; 87075; 87086; 87205; 87426; 88108; 88184; 88305; 89051; 92610; 92611; 93005; 93970; 97110; 97116; 97161; 97165; 97530; 97535; A9270; A9540; C8929; C9113; C9803; G0378; G0379; J0456; J0696; J1815; J1940; P9047; Q9957

== ENCOUNTER 2022-03-23 16:15 | Inpatient (IN) | payer MEDICARE, SELFPAY ==
--- NOTE | ~2022-03-23 | XR_ITS ---
Clinical Indication: Pulmonary edema PA and lateral views of the chest: Comparison: 03/20/2022 Findings: Stable right apical masslike density. Small layering left pleural effusion present with mil d bibasilar atelectatic change. Cardiomediastinal silhouette is within normal limits. Bones and soft tissues are unremarkable. Impression: Stable right apical masslike density. This is consistent with loculated effusion based on recent CT s can. Additional small layering right pleural effusion with mild bibasilar atelectatic change. Reviewed, dictated and finalized at location M. ATIONS MANAGER/COORDINATOR Impression: Stable right apical masslike density. This is consistent with loculated effusio n based on recent CT scan. Additional small layering right pleural effusion with mild bibasilar atelectati c change.
--- NOTE | 2022-03-23 16:50 | ADMGEN ---
1600 This patient, Jaspal Ruggiero, was admitted to 2nd Floor Room 205-1 skilled swing bed services. [facility] due to new on set a fib and r pleural effusion for strengthening prior to going home. . Patient/family oriented to hospital policies and general routines including ID bracelet, bed and alarms, visiting hours, pain management, procedures, bathroom and other care routines, personal items, smoking policy, room service/diet, and visiting hours. Information on how to activate the Rapid Response Team has been discussed. Patient/Family are encouraged to report perceived risks to care and to ask questions if they do not understand what they are told or what they should do.
[2022-03-23 16:54] VITALS: BMI 26.9
[2022-03-23 17:07] VITALS: BP 126/78; PULSE 78; RESP 18; TEMP 37.1; O2SAT 94
[2022-03-23] MEDS: AMOXICILLIN/CLAVULANATE K 500-125 MG TAB 1 TABLET PO (21:01)
[2022-03-23] MEDS: DOCUSATE SODIUM 100 MG CAPSULE PO (21:01)
[2022-03-23 21:12] LABS: Glucose Point of Care 229 mg/dl (65-105)
[2022-03-24] VITALS (7 sets, daily range): BP systolic 101–124; BP diastolic 58–61; PULSE 70–82; RESP 18; TEMP 36.1–36.8; O2SAT 94–98
[2022-03-24 07:50] LABS: Glucose Point of Care 112 mg/dl (65-105)
[2022-03-24] MEDS: allopurinoL 100 MG TABLET PO (08:22)
[2022-03-24] MEDS: TAMSULOSIN HCL 0.4 MG CAPSULE 0.8 MG PO (08:27)
[2022-03-24] MEDS: FUROSEMIDE 40 MG TABLET PO (08:27)
[2022-03-24] MEDS: ASPIRIN 81 MG CHEWABLE TABLET PO (08:27)
[2022-03-24] MEDS: ATORVASTATIN 10 MG TABLET 20 MG PO (08:28)
[2022-03-24] MEDS: DOCUSATE SODIUM 100 MG CAPSULE PO (08:28)
[2022-03-24] MEDS: FOLIC ACID 1 MG TABLET PO (08:28)
[2022-03-24] MEDS: AMOXICILLIN/CLAVULANATE K 500-125 MG TAB 1 TABLET PO ×2 (08:32→21:19)
[2022-03-24] MEDS: carvediloL 1.56 MG TABLET PO ×3 (08:32→17:03)
--- NOTE | 2022-03-24 11:22 | PM.IMHP ---
H&P: HPI History of Present Illness Date/Time: 03/24/22 11:22 Chief Complaint: Rehab weakness Narrative: this is a 86-year-old male that presented to the [facility] emergency department and was transferred to [facility] for higher level of care. Patient was found to have a bilateral pleural effusion with a pericardial effusion. Patient underwent a thoracentesis. Cardiology along with GI and pulmonology was consulted during this hospital stay. Patient admitted in swing bed for rehabilitation due to decreased balance decreased mobility in severe limited function endurant and/or mobility. [facility] Past Medical History Medical History Acute UTI (urinary tract infection) BPH (benign prostatic hyperplasia) CAD (coronary artery disease) Dehydration, mild Diabetes 1.5, managed as type 2 Gout History of kidney stones Hyperlipidemia Hypertension Viral syndrome Surgical History Surgical History H/O hernia repair H/O removal of cyst On his chest History of back surgery History of cardiac catheterization Stented coronary artery 2015, and 2018 Family History Family History Father Heart disease Diabetes mellitus Sibling Diabetes mellitus Social History Social History Social History: The patient lives with his has 2 Children. Patient is retired from [employer]. The patient stated he used to drink heavily but does not drink anymore. His is the durable power commercial litigation attorney for healthcare. Code status full code Smoking status: Never smoker Tobacco type: cigarettes Second hand tobacco smoke exposure: No Alcohol intake: never Substance use: never Substance use type: does not use Lack of Transportation: No Lack of Food: Never True Current Housing: I Have Housing Concerned About Future Housing: No Difficulty Paying Gas/Electric Bills: No Difficulty Paying for Meds: No Currently Unemployed: No Education: High School Diploma/GED Difficulty w/ Childcare or Family Care: No Living arrangements: with family Spiritual care concerns: No Meds Home Medications and Allergies Home Medications Medication Instructions Recorded Confirmed Type allopurinol 100 mg tablet 100 mg PO DAILY 05/26/20 03/23/22 History atorvastatin 40 mg tablet 20 mg PO DAILY 05/26/20 03/23/22 History folic acid 1 mg tablet 1 mg PO DAILY 05/26/20 03/23/22 History tamsulosin 0.4 mg capsule 0.8 mg PO BID 05/26/20 03/23/22 History ferrous sulfate 134 mg (27 mg 134 mg PO DAILY 02/22/22 03/23/22 History iron) tablet aspirin 81 mg tablet 81 mg PO DAILY 03/12/22 03/23/22 History carvedilol 3.125 mg tablet 1.56 mg PO TID 03/12/22 03/23/22 History glimepiride 1 mg tablet 0.5 mg PO DAILY 03/12/22 03/23/22 History amoxicillin 875 mg-potassium 1 tablet PO Q12H #20 tabs 03/23/22 03/23/22 Rx clavulanate 125 mg tablet furosemide 40 mg tablet 40 mg PO DAILY #30 tabs 03/23/22 03/23/22 Rx metoprolol succinate 25 mg 25 mg PO QAM #30 tabs 03/23/22 03/23/22 Rx tablet,extended release 24 hr (Toprol XL) Allergies Allergy/AdvReac Type Severity Reaction Status Date / Time No Known Allergies Allergy Verified 03/09/22 08:18 Vital Signs Vital Signs - 24 hr 03/23/22 17:07 03/23/22 17:07 03/24/22 00:00 Temperature 98.7 F 97.5 F L Pulse Rate 78 77 Respiratory Rate 18 18 Blood Pressure 126/78 124/61 Pulse Oximetry 94 94 Oxygen Delivery Room Air Room Air Room Air 03/24/22 08:00 03/24/22 08:32 Temperature 98.0 F Pulse Rate 82 82 Respiratory Rate 18 Blood Pressure 112/58 L Pulse Oximetry 96 Oxygen Delivery Room Air Assessment and Plan Assessment and plan (1) Cirrhosis: Code(s): K74.60 - Unspecified cirrhosis of liver Status: Acute Assessment and Plan: GI con
[2022-03-24 11:44] LABS: Glucose Point of Care 184 mg/dl (65-105)
[2022-03-24 16:41] LABS: Glucose Point of Care 150 mg/dl (65-105)
[2022-03-24 21:27] LABS: Glucose Point of Care 169 mg/dl (65-105)
--- NOTE | 2022-03-24 22:44 | PC.NURSE ---
Pt's denture placed in cup by the sink w/Efferdent. Trash also removed from pt room. Call light w/in reach, bed in lowest position, and side railsx2 for pt safety.
[2022-03-25 08:00] VITALS: BP 130/71; PULSE 80; RESP 14; TEMP 36.2; O2SAT 94
[2022-03-25 08:03] LABS: Glucose Point of Care 99 mg/dl (65-105)
[2022-03-25] MEDS: POLYSACCHARIDE IRON COMPLEX 150 MG CAPSULE PO (08:10)
[2022-03-25] MEDS: TAMSULOSIN HCL 0.4 MG CAPSULE 0.8 MG PO (09:00)
[2022-03-25] MEDS: ATORVASTATIN 10 MG TABLET 20 MG PO (09:20)
[2022-03-25] MEDS: ASPIRIN 81 MG CHEWABLE TABLET PO (09:22)
[2022-03-25] MEDS: AMOXICILLIN/CLAVULANATE K 500-125 MG TAB 1 TABLET PO ×2 (09:23→20:52)
[2022-03-25] MEDS: allopurinoL 100 MG TABLET PO (09:23)
[2022-03-25] MEDS: FUROSEMIDE 40 MG TABLET PO (09:23)
[2022-03-25] MEDS: FOLIC ACID 1 MG TABLET PO (09:23)
[2022-03-25 09:24] VITALS: PULSE 80
[2022-03-25] MEDS: carvediloL 1.56 MG TABLET PO ×3 (09:24→17:45)
--- NOTE | 2022-03-25 13:03 | PC.NURSE ---
Accu check not done, pt ate meal early
[2022-03-25 13:20] VITALS: PULSE 80
--- NOTE | 2022-03-25 14:00 | PC.NURSE ---
Flomax given to pt but does not show up as given.
[2022-03-25 16:35] VITALS: BP 132/63; PULSE 83; RESP 18; TEMP 36.2; O2SAT 96
[2022-03-25 17:07] LABS: Glucose Point of Care 154 mg/dl (65-105)
[2022-03-25 17:45] VITALS: PULSE 83
[2022-03-25 21:03] LABS: Glucose Point of Care 163 mg/dl (65-105)
[2022-03-25 23:02] VITALS: BP 131/72; PULSE 78; RESP 15; TEMP 36.2; O2SAT 96
[2022-03-26 07:57] LABS: Glucose Point of Care 107 mg/dl (65-105)
[2022-03-26 08:00] VITALS: BP 140/72; PULSE 78; RESP 14; TEMP 36.6; O2SAT 97
[2022-03-26 09:05] VITALS: PULSE 74
[2022-03-26] MEDS: carvediloL 1.56 MG TABLET PO ×3 (09:05→17:44)
[2022-03-26] MEDS: FOLIC ACID 1 MG TABLET PO (09:06)
[2022-03-26] MEDS: POLYSACCHARIDE IRON COMPLEX 150 MG CAPSULE PO (09:06)
[2022-03-26] MEDS: FUROSEMIDE 40 MG TABLET PO (09:06)
[2022-03-26] MEDS: ATORVASTATIN 10 MG TABLET 20 MG PO (09:07)
[2022-03-26] MEDS: AMOXICILLIN/CLAVULANATE K 500-125 MG TAB 1 TABLET PO ×2 (09:07→20:05)
[2022-03-26] MEDS: TAMSULOSIN HCL 0.4 MG CAPSULE 0.8 MG PO (09:07)
[2022-03-26] MEDS: ASPIRIN 81 MG CHEWABLE TABLET PO (09:08)
[2022-03-26] MEDS: allopurinoL 100 MG TABLET PO (09:08)
[2022-03-26 11:32] LABS: Glucose Point of Care 199 mg/dl (65-105)
[2022-03-26 13:22] VITALS: PULSE 72
[2022-03-26 16:30] VITALS: BP 122/72; PULSE 83; RESP 18; TEMP 36.6; O2SAT 95
[2022-03-26 17:15] LABS: Glucose Point of Care 178 mg/dl (65-105)
[2022-03-26 17:44] VITALS: PULSE 83
[2022-03-26] MEDS: HYDROcodone/acetaminophen (*CRX) 5-325 MG TABLET 1 TAB PO (20:04)
[2022-03-26 20:17] LABS: Glucose Point of Care 226 mg/dl (65-105)
[2022-03-26 23:02] VITALS: BP 116/62; PULSE 76; RESP 19; TEMP 36.1; O2SAT 94
[2022-03-27 07:52] LABS: Glucose Point of Care 124 mg/dl (65-105)
[2022-03-27 08:00] VITALS: BP 91/53; PULSE 87; RESP 14; TEMP 36.2; O2SAT 99
[2022-03-27] MEDS: POLYSACCHARIDE IRON COMPLEX 150 MG CAPSULE PO (08:00)
[2022-03-27 09:05] VITALS: PULSE 87
[2022-03-27] MEDS: ASPIRIN 81 MG CHEWABLE TABLET PO (09:05)
[2022-03-27] MEDS: carvediloL 1.56 MG TABLET PO ×2 (09:05→16:45)
[2022-03-27] MEDS: AMOXICILLIN/CLAVULANATE K 500-125 MG TAB 1 TABLET PO ×2 (09:05→21:39)
[2022-03-27] MEDS: TAMSULOSIN HCL 0.4 MG CAPSULE 0.8 MG PO (09:05)
[2022-03-27] MEDS: FOLIC ACID 1 MG TABLET PO (09:06)
[2022-03-27] MEDS: allopurinoL 100 MG TABLET PO (09:06)
[2022-03-27] MEDS: ATORVASTATIN 10 MG TABLET 20 MG PO (09:06)
[2022-03-27] MEDS: FUROSEMIDE 40 MG TABLET PO (09:06)
[2022-03-27 11:54] LABS: Glucose Point of Care 194 mg/dl (65-105)
[2022-03-27 13:44] VITALS: PULSE 68
[2022-03-27 16:00] VITALS: BP 106/55; PULSE 80; RESP 18; TEMP 36.7; O2SAT 95
[2022-03-27 16:45] VITALS: PULSE 75
[2022-03-27 16:51] LABS: Glucose Point of Care 126 mg/dl (65-105)
[2022-03-27 21:48] LABS: Glucose Point of Care 157 mg/dl (65-105)
[2022-03-28] VITALS: BP 116/75; PULSE 83; RESP 18; TEMP 36.3; O2SAT 95
[2022-03-28 07:29] LABS: Glucose Point of Care 105 mg/dl (65-105)
[2022-03-28 08:00] VITALS: BP 122/75; PULSE 79; RESP 18; TEMP 36.3; O2SAT 95
[2022-03-28] MEDS: ATORVASTATIN 10 MG TABLET 20 MG PO (08:18)
[2022-03-28] MEDS: TAMSULOSIN HCL 0.4 MG CAPSULE 0.8 MG PO (08:18)
[2022-03-28] MEDS: AMOXICILLIN/CLAVULANATE K 500-125 MG TAB 1 TABLET PO ×2 (08:18→20:55)
[2022-03-28] MEDS: FOLIC ACID 1 MG TABLET PO (08:19)
[2022-03-28] MEDS: allopurinoL 100 MG TABLET PO (08:19)
[2022-03-28] MEDS: FUROSEMIDE 40 MG TABLET PO (08:19)
[2022-03-28] MEDS: POLYSACCHARIDE IRON COMPLEX 150 MG CAPSULE PO (08:19)
[2022-03-28] MEDS: ASPIRIN 81 MG CHEWABLE TABLET PO (08:19)
[2022-03-28 08:20] VITALS: PULSE 68
[2022-03-28] MEDS: carvediloL 1.56 MG TABLET PO ×3 (08:20→16:52)
[2022-03-28 11:56] LABS: Glucose Point of Care 150 mg/dl (65-105)
[2022-03-28 13:04] VITALS: PULSE 78
[2022-03-28 16:00] VITALS: BP 137/81; PULSE 88; RESP 20; TEMP 36.2; O2SAT 96
[2022-03-28 16:36] LABS: Glucose Point of Care 141 mg/dl (65-105)
[2022-03-28 16:52] VITALS: PULSE 88
[2022-03-28 21:06] LABS: Glucose Point of Care 145 mg/dl (65-105)
[2022-03-29] VITALS: BP 117/68; PULSE 86; RESP 16; TEMP 36.1; O2SAT 94
[2022-03-29 08:00] VITALS: BP 124/78; PULSE 87; RESP 16; TEMP 36.4; O2SAT 94
[2022-03-29] MEDS: AMOXICILLIN/CLAVULANATE K 500-125 MG TAB 1 TABLET PO ×2 (08:10→20:24)
[2022-03-29] MEDS: POLYSACCHARIDE IRON COMPLEX 150 MG CAPSULE PO (08:30)
[2022-03-29 08:45] VITALS: PULSE 79
[2022-03-29] MEDS: TAMSULOSIN HCL 0.4 MG CAPSULE 0.8 MG PO (08:45)
[2022-03-29] MEDS: carvediloL 1.56 MG TABLET PO ×3 (08:45→16:51)
[2022-03-29] MEDS: ASPIRIN 81 MG CHEWABLE TABLET PO (08:45)
[2022-03-29] MEDS: FUROSEMIDE 40 MG TABLET PO (08:45)
[2022-03-29] MEDS: ATORVASTATIN 10 MG TABLET 20 MG PO (08:45)
[2022-03-29] MEDS: allopurinoL 100 MG TABLET PO (08:45)
[2022-03-29] MEDS: FOLIC ACID 1 MG TABLET PO (08:45)
[2022-03-29 08:51] LABS: Glucose Point of Care 100 mg/dl (65-105)
[2022-03-29 11:36] LABS: Glucose Point of Care 119 mg/dl (65-105)
[2022-03-29 12:49] VITALS: PULSE 79
[2022-03-29 16:00] VITALS: BP 111/78; PULSE 89; RESP 16; TEMP 36.3; O2SAT 97
[2022-03-29 16:32] LABS: Glucose Point of Care 117 mg/dl (65-105)
[2022-03-29 16:51] VITALS: PULSE 89
[2022-03-30] VITALS (7 sets, daily range): BP systolic 115–120; BP diastolic 66–75; PULSE 83–95; RESP 16–20; TEMP 35.8–36.6; O2SAT 96–97
[2022-03-30 05:21] LABS: Hematocrit 31.9 % (37.0-46.0); Immature Platelet Fraction Pct 3.4 % (1.0-7.0); Mean Corpuscular HGB Conc 31.3 g/dL (32.0-36.0); Mean Corpuscular Hemoglobin 29.1 pg (27.0-31.0); Mean Corpuscular Volume 92.7 fL (78.0-102.0); Platelet Count Result 72 K/mm3 (150-420); Red Blood Count 3.44 M/mm3 (4.70-6.10); Red Cell Distribution Width 15.4 % (11.6-14.4); White Blood Count 3.5 K/mm3 (4.8-10.8)
[2022-03-30 05:31] LABS: Anion Gap 7 mmol/L (8-16); Blood Urea Nitrogen 40 mg/dL (7-18); Calcium 8.2 mg/dL (8.5-10.1); Carbon Dioxide 25 mmol/L (21-32); Chloride 107 mmol/L (98-108); Estimated CRCL calculation 30 ml/min; Estimated Glomerular Filt Rate 43; Glucose 88 mg/dL (70-99); Osmolality Calculated 296 mOsm/kg (285-295); Potassium 3.7 mmol/L (3.5-5.1); Sodium 139 mmol/L (136-145)
--- NOTE | 2022-03-30 07:51 | P.PNCROSS_ITS ---
Event Note Event Note Event Note: Recvd a call that patient was marked as high risk for Sepsis. Patient has remai rayray a febrile, there is no hypotension. patient plts are low after review of plts in the past year they are higher than they have been patient WBC are low which after review of they are normally low after review. Patient has no sign and symptom of sepsis that requires any treatment
[2022-03-30] MEDS: TAMSULOSIN HCL 0.4 MG CAPSULE 0.8 MG PO (09:39)
[2022-03-30] MEDS: ATORVASTATIN 10 MG TABLET 20 MG PO (09:39)
[2022-03-30] MEDS: carvediloL 1.56 MG TABLET PO ×3 (09:39→17:51)
[2022-03-30] MEDS: FUROSEMIDE 40 MG TABLET PO (09:39)
[2022-03-30] MEDS: AMOXICILLIN/CLAVULANATE K 500-125 MG TAB 1 TABLET PO ×2 (09:39→20:30)
[2022-03-30] MEDS: ASPIRIN 81 MG CHEWABLE TABLET PO (09:40)
[2022-03-30] MEDS: POLYSACCHARIDE IRON COMPLEX 150 MG CAPSULE PO (09:40)
[2022-03-30] MEDS: allopurinoL 100 MG TABLET PO (09:40)
[2022-03-30] MEDS: FOLIC ACID 1 MG TABLET PO (09:40)
[2022-03-30 12:04] LABS: Glucose Point of Care 134 mg/dl (65-105)
[2022-03-30 17:09] LABS: Glucose Point of Care 98 mg/dl (65-105)
[2022-03-30 20:35] LABS: Glucose Point of Care 158 mg/dl (65-105)
[2022-03-31] VITALS: BP 115/69; PULSE 73; RESP 17; TEMP 36.4; O2SAT 99
--- NOTE | 2022-03-31 07:31 | PM.DS ---
DS: Admitting Diagnosis Discharge Date 03/31/2022 Admitting Diagnosis swing, rehab ,weakness DS: Discharge Diagnosis Discharge Diagnosis (1) Weakness: Code(s): R53.1 - Weakness Status: Acute Assessment and Plan: ? Exhibit tolerance during physical activity as evidenced by a normal fluctuation of vital signs during physical activity. ? Patient will be ability to perform required activities of daily living. ? Provide appropriate nutrition for healing and strength. ? Use appropriate to prevent falls. ? Continue physical therapy/occupational therapy. (2) Interstitial lung disease: Code(s): J84.9 - Interstitial pulmonary disease, unspecified Status: Acute (3) Acute on chronic renal failure: Code(s): N17.9 - Acute kidney failure, unspecified; N18.9 - Chronic kidney disease, unspecified Status: Acute (4) Atrial fibrillation: Code(s): I48.91 - Unspecified atrial fibrillation Status: Acute Assessment and Plan: consulted cardiology at [facility] according to documentation may be a candidate for LAAO since he is unable to be anticoagulated echo showed normal LVSF, EF 55% no significant valvular pathology (5) Cirrhosis: Code(s): K74.60 - Unspecified cirrhosis of liver Status: Acute Assessment and Plan: GI consulted and [facility] no further workup needed patient's cirrhosis was well compensated. He will need to follow up as an outpatient (6) Pleural effusion: Code(s): J90 - Pleural effusion, not elsewhere classified Status: Acute Assessment and Plan: imaging indicated A moderate-sized right pleural effusion and small left pleural effusion thoracentesis completed pleural fluid analysis no growth he will need to follow up with pulmonology (7) Stage 3b chronic kidney disease: Code(s): N18.32 - Chronic kidney disease, stage 3b Status: Chronic Assessment and Plan: stable consult by nephrologists creatinine at [facility] to be at baseline around 1.5 in 2.0 avoid nephrotoxin agents will renal dose medication DS: Summary Hospital Course Reason for hospitalization: Rehab , Weakness, UTI Hospital Course: This is a 86 year old male that was here for physical therapy and initially was weak and confused. Patient has finished his course of therapy his course of antibiotics will continue as a outpatient for 2 additional days . Patient has a past medical history of CKD stage 3 Mr. Ruggiero was seen at [facility] by Cardiolology and GI, Pulmonology where he underwent a thoracentesis. He as worked with therapy here and continued on antibiotics. At this time he has completed his therapy and is ready to discharge home he will go home with 2 more days of antibiotics and continue to follow up as a outpatient he will have physicaly therapy as a outpatient. Patient is ambulating, eating and drinking and tolerating activity well. No shortness of breath noted at this time. vitals at this time is 1:07 a.m. over 91, pulse is 70, respirations 15, temp is 97.5?, 97% on room air, last set of labs back potassium 3.7, sodium 139, BUN 40 3.44, wbc's 3.5, hemoglobin stent, platelets 72 patient is on anticoagulation for atrial fibrillation we will continue to monitor. Time Spent with Patient Time attestation: Total time spent providing and/or coordinating discharge services: Exam Narrative: GENERAL:Well-appearing, well-nourished, Pale and in no acute distress. HEAD:Normocephalic, atraumatic. EYES: PERRLA and EOMI. ENT: Nares clear, no rhinorrhea or epistaxis. Mucous membranes moist. CHEST: Clear to slightly diminished auscultation. No respiratory distress. HEART: Regular rate and rhythm. decreased peripheral pulses. ABDOMEN: Soft, nontender, nondistended, normal active bowel sounds. EXTREMITIES: Normal range of motion. No edema. SKIN: Warm, dry, no rash. NEURO: No focal deficits. Alert and oriented x3. DS: Data Data Comp
[2022-03-31 07:49] LABS: Glucose Point of Care 75 mg/dl (65-105)
[2022-03-31 08:00] VITALS: BP 107/91; PULSE 70; RESP 15; TEMP 36.4; O2SAT 97
[2022-03-31] MEDS: TAMSULOSIN HCL 0.4 MG CAPSULE 0.8 MG PO (08:24)
[2022-03-31] MEDS: FOLIC ACID 1 MG TABLET PO (08:24)
[2022-03-31] MEDS: ASPIRIN 81 MG CHEWABLE TABLET PO (08:24)
[2022-03-31] MEDS: ATORVASTATIN 10 MG TABLET 20 MG PO (08:24)
[2022-03-31] MEDS: AMOXICILLIN/CLAVULANATE K 500-125 MG TAB 1 TABLET PO (08:24)
[2022-03-31] MEDS: FUROSEMIDE 40 MG TABLET PO (08:24)
[2022-03-31] MEDS: allopurinoL 100 MG TABLET PO (08:24)
[2022-03-31] MEDS: POLYSACCHARIDE IRON COMPLEX 150 MG CAPSULE PO (08:25)
[2022-03-31] MEDS: carvediloL 1.56 MG TABLET PO (08:26)
--- NOTE | 2022-03-31 10:14 | PC.NURSE ---
Discharge summary reviewed with patient. All questions answered. Patient transported via w/c and assisted into private vehicle. All belongings taken per family.
[2022-03-31 11:41] LABS: Glucose Point of Care 200 mg/dl (65-105)
--- NOTE | 2022-04-04 09:02 | PC.NURSE ---
Pt states he received and understood his discharge instructions. Pt has no other comments.
== END 2022-03-31 10:05 | disposition home or self-care (01) | DRG 948 ==
PROVIDERS: Nurse Practitioner; Admitting Provider Internal Medicine; PCP Internal Medicine; Visit Provider Internal Medicine
DX: R53.1 Weakness (principal); J90 Pleural effusion, not elsewhere classified; I48.20 Chronic atrial fibrillation, unspecified; N17.9 Acute kidney failure, unspecified; N40.0 Benign prostatic hyperplasia without lower urinary tract symptoms; I25.10 Atherosclerotic heart disease of native coronary artery without angina pectoris; I12.9 Hypertensive chronic kidney disease with stage 1 through stage 4 chronic kidney disease, or unspecified chronic kidney disease; N18.32 Chronic kidney disease, stage 3b; E13.22 Other specified diabetes mellitus with diabetic chronic kidney disease; E78.5 Hyperlipidemia, unspecified; K74.60 Unspecified cirrhosis of liver; Z95.5 Presence of coronary angioplasty implant and graft; Z87.442 Personal history of urinary calculi; Z79.82 Long term (current) use of aspirin
CPT/HCPCS: 36415; 71046; 80048; 82948; 85027; 85055; 97110; 97161; 97165; 97530; 97535; A9270

== ENCOUNTER 2022-04-29 07:36 | Outpatient (CLI) | payer MEDICARE, SELFPAY ==
--- NOTE | ~2022-04-29 | XR_ITS ---
EXAMINATION: XR chest 2V DATE: 04/29/2022 07:59 INDICATION: Pneumonia TECHNIQUE: PA and lateral views of the chest are obtained. COMPARISON: 03/30/2022 FINDINGS: There is a small left pleural effusion with minimal improvement. Right basilar airspace opa cities persist but have improved. The cardiomediastinal silhouette is stable. There are bridging oste ophytes at multiple levels in the spine, consistent with diffuse idiopathic skeletal hyperostosis (DI SH). An electronic device now projects over the left heart in the anterior subcutaneous tissues of th e left chest. IMPRESSION: 1. Persistent but improved right basilar airspace opacities, consistent with atelectasis. 2. Small right pleural effusion with minimal improvement. Reviewed, dictated and finalized at location F. CAL MODEL MAKER AND TESTER IMPRESSION: 1. Persistent but improved right basilar airspace opacities, consistent with at electasis. 2. Small right pleural effusion with minimal improvement.
[2022-04-29 07:54] LABS: Basophils Absolute Auto 0.04 K/mm3 (0.00-0.10); Basophils Percent Auto 0.7 % (0.0-1.0); Eosinophils Absolute Auto 0.17 K/mm3 (0.02-0.50); Eosinophils Percent Auto 2.9 % (1.0-6.0); Hematocrit 32.3 % (37.0-46.0); Hemoglobin 10.5 g/dL (12.4-15.3); Immature Granulocyte Absolute 0.02 K/mm3 (0.00-0.00); Immature Granulocyte Percent A 0.3 % (0.0-0.0); Lymphocytes Absolute Auto 1.29 K/mm3 (1.10-4.50); Lymphocytes Percent Auto 22.2 % (18.0-42.0); Mean Corpuscular HGB Conc 32.5 g/dL (32.0-36.0); Mean Corpuscular Hemoglobin 30.1 pg (27.0-31.0); Mean Corpuscular Volume 92.6 fL (78.0-102.0); Mean Platelet Volume 11.7 fl (8.7-11.0); Monocytes Absolute Auto 0.55 K/mm3 (0.10-0.90); Monocytes Percent Auto 9.5 % (2.0-11.0); Neutrophils Absolute Auto 3.7 K/mm3 (1.7-7.2); Neutrophils Percent Auto 64.4 % (50.0-70.0); Platelet Count Result 117 K/mm3 (150-420); Red Blood Count 3.49 M/mm3 (4.70-6.10); Red Cell Distribution Width 16.9 % (11.6-14.4); White Blood Count 5.8 K/mm3 (4.8-10.8)
[2022-04-29 07:57] LABS: Appearance Urine Cloudy (Clear); Bilirubin Urine Negative (Negative); Blood Urine 2+ (Negative); Glucose Urine UA Negative (Negative); Ketones Urine Negative (Negative); Leukocyte Esterase Ur 2+ LEU/UL (Negative); Nitrate Urine Negative (Negative); Protein Urine 3+ (Negative); Urobilinogen Urine 0.2 mg/dL (0.2-1.0); pH Urine 7.5 (5.0-8.0)
[2022-04-29 07:59] LABS: Add Urine Microscopic? YES; Color Urine Colorless (Yellow); WBC Urine >75 /hpf (0-3)
[2022-04-29 08:00] LABS: Bacteria Urine Rare /hpf
[2022-04-29 08:35] LABS: Alanine Aminotransferase 30 U/L (16-63); Albumin Level 2.2 g/dL (3.4-5.0); Alkaline Phosphatase 261 U/L (46-116); Anion Gap 12 mmol/L (8-16); Aspartate Amino Transferase 32 U/L (15-37); Bilirubin,Total 0.9 mg/dL (0.00-1.00); Blood Urea Nitrogen 43 mg/dL (7-18); Calcium 8.7 mg/dL (8.5-10.1); Carbon Dioxide 23 mmol/L (21-32); Chloride 106 mmol/L (98-108); Estimated Glomerular Filt Rate 32; Ferritin 167 ng/mL (26-388); Glucose 153 mg/dL (70-99); Iron 30 ug/dL (65-175); Osmolality Calculated 305 mOsm/kg (285-295); Sodium 141 mmol/L (136-145); Total Protein 7.4 g/dL (6.4-8.2)
== END 2022-04-29 07:37 | disposition home or self-care (01) ==
LOC: CHSLAB 07:38
PROVIDERS: PCP Internal Medicine; Visit Provider Internal Medicine
DX: N39.0 Urinary tract infection, site not specified (principal); J18.9 Pneumonia, unspecified organism; N18.30 Chronic kidney disease, stage 3 unspecified; J90 Pleural effusion, not elsewhere classified; R91.8 Other nonspecific abnormal finding of lung field; R82.90 Unspecified abnormal findings in urine; D50.9 Iron deficiency anemia, unspecified
CPT/HCPCS: 36415; 71046; 80053; 81001; 82728; 83540; 85025; 87086; 87088

== ENCOUNTER 2022-05-10 08:27 | Outpatient (CLI) | payer MEDICARE, SELFPAY ==
[2022-05-10 08:44] VITALS: BMI 26.8
[2022-05-10 08:48] VITALS: BP 144/72; PULSE 72; RESP 16; TEMP 36.3; O2SAT 99
[2022-05-10] MEDS: IRON SUCROSE COMPLEX 300 MG in SODIUM CHLORIDE 0.9% IV 250 ML 150 MG IVPB (09:00)
--- NOTE | 2022-05-10 11:10 | PC.NURSE ---
Patient here for #1 of 3 IV Venofer infusions. Education given. All concerns answered. IV Venofer administered. SEE MAR. Tolerated well. Will return 05/24/22 for #2 of 3 at 0830. Safe exit of hospital to car ambulatory.
== END 2022-05-10 08:28 | disposition home or self-care (01) ==
LOC: CHSTREATRM 08:29
PROVIDERS: PCP Internal Medicine; Visit Provider Internal Medicine
DX: D50.9 Iron deficiency anemia, unspecified (principal)
CPT/HCPCS: 96365; 96366; J1756; J7050

== ENCOUNTER 2022-05-24 08:28 | Outpatient (CLI) | payer MEDICARE, SELFPAY ==
[2022-05-24] MEDS: IRON SUCROSE COMPLEX 300 MG in SODIUM CHLORIDE 0.9% IV 250 ML 125 MG IVPB (09:05)
== END 2022-05-24 08:29 | disposition home or self-care (01) ==
LOC: CHSTREATRM 08:30
PROVIDERS: PCP Internal Medicine; Visit Provider Internal Medicine
DX: D50.9 Iron deficiency anemia, unspecified (principal)
CPT/HCPCS: 96365; 96366; J1756; J7050

== ENCOUNTER 2022-06-08 08:39 | Outpatient (CLI) | payer MEDICARE, SELFPAY ==
[2022-06-08 08:55] VITALS: BP 154/85; PULSE 72; RESP 16; TEMP 36.4; O2SAT 100
[2022-06-08 08:56] VITALS: BMI 26.2
[2022-06-08] MEDS: IRON SUCROSE COMPLEX 300 MG in SODIUM CHLORIDE 0.9% IV 250 ML 125 MG IVPB (09:05)
--- NOTE | 2022-06-08 11:17 | PC.NURSE ---
Patient here for #3 of 3 of IV Venofer infusions. Reports did ok with the first 2. Education given. IV Venofer administered. SEE MAR. Tolerated well. Safe exit of hospital to car per wc per staff.
== END 2022-06-08 08:40 | disposition home or self-care (01) ==
LOC: CHSTREATRM 08:41
PROVIDERS: PCP Internal Medicine; Visit Provider Internal Medicine
DX: D50.9 Iron deficiency anemia, unspecified (principal)
CPT/HCPCS: 96365; 96366; J1756; J7050

== ENCOUNTER 2022-06-14 13:28 | Outpatient (CLI) | payer MEDICARE, SELFPAY ==
[2022-06-14 13:50] LABS: Basophils Absolute Auto 0.03 K/mm3 (0.00-0.10); Basophils Percent Auto 0.7 % (0.0-1.0); Eosinophils Absolute Auto 0.13 K/mm3 (0.02-0.50); Eosinophils Percent Auto 2.8 % (1.0-6.0); Hematocrit 33.9 % (37.0-46.0); Hemoglobin 10.8 g/dL (12.4-15.3); Immature Granulocyte Absolute 0.04 K/mm3 (0.00-0.00); Immature Granulocyte Percent A 0.9 % (0.0-0.0); Immature Platelet Fraction Pct 1.8 % (1.0-7.0); Lymphocytes Absolute Auto 1.22 K/mm3 (1.10-4.50); Lymphocytes Percent Auto 26.7 % (18.0-42.0); Mean Corpuscular HGB Conc 31.9 g/dL (32.0-36.0); Mean Corpuscular Hemoglobin 30.6 pg (27.0-31.0); Mean Platelet Volume 11.1 fl (8.7-11.0); Monocytes Absolute Auto 0.41 K/mm3 (0.10-0.90); Neutrophils Absolute Auto 2.7 K/mm3 (1.7-7.2); Neutrophils Percent Auto 59.9 % (50.0-70.0); Platelet Count Result 83 K/mm3 (150-420); Red Blood Count 3.53 M/mm3 (4.70-6.10); Red Cell Distribution Width 17.2 % (11.6-14.4); White Blood Count 4.6 K/mm3 (4.8-10.8)
[2022-06-14 14:42] LABS: Alanine Aminotransferase 39 U/L (16-63); Albumin Level 2.5 g/dL (3.4-5.0); Alkaline Phosphatase 272 U/L (46-116); Anion Gap 11 mmol/L (8-16); Aspartate Amino Transferase 40 U/L (15-37); Bilirubin,Total 0.6 mg/dL (0.00-1.00); Blood Urea Nitrogen 36 mg/dL (7-18); Calcium 8.4 mg/dL (8.5-10.1); Carbon Dioxide 23 mmol/L (21-32); Chloride 105 mmol/L (98-108); Estimated Glomerular Filt Rate 38; Ferritin 557 ng/mL (26-388); Glucose 286 mg/dL (70-99); Iron 68 ug/dL (65-175); Osmolality Calculated 306 mOsm/kg (285-295); Prostate Specific Antigen 4.6 ng/mL (< OR = 4.0); Sodium 139 mmol/L (136-145); Total Protein 7.2 g/dL (6.4-8.2)
== END 2022-06-14 13:29 | disposition home or self-care (01) ==
LOC: CHSLAB 13:30
PROVIDERS: PCP Internal Medicine; Visit Provider Internal Medicine
DX: R30.0 Dysuria (principal); R31.9 Hematuria, unspecified; N41.9 Inflammatory disease of prostate, unspecified; D64.9 Anemia, unspecified
CPT/HCPCS: 36415; 80053; 82728; 83540; 84153; 85025; 85055

== ENCOUNTER 2022-07-10 14:11 | Outpatient (CLI) | payer MEDICARE, SELFPAY ==
[2022-07-10 14:30] LABS: Hematocrit 35.6 % (37.0-46.0); Hemoglobin 11.8 g/dL (12.4-15.3); Immature Platelet Fraction Pct 2.8 % (1.0-7.0); Immature Reticulocyte Fraction 8.7 % (2.0-16.52); Mean Corpuscular HGB Conc 33.1 g/dL (32.0-36.0); Mean Corpuscular Hemoglobin 31.3 pg (27.0-31.0); Mean Corpuscular Volume 94.4 fL (78.0-102.0); Mean Platelet Volume 10.9 fl (8.7-11.0); Platelet Count Result 73 K/mm3 (150-420); Red Blood Count 3.77 M/mm3 (4.70-6.10); Red Cell Distribution Width 15.9 % (11.6-14.4); Reticulocyte Hemoglobin Conten 36.3 pg (28.0-35.0); Reticulocyte Percent 1.36 % (0.50-1.50); Reticulocytes Absolute 0.05 M/mm3 (0.02-0.1); White Blood Count 3.9 K/mm3 (4.8-10.8)
[2022-07-10 14:43] LABS: INR 1.1; Partial Thromboplastin Time 27.1 SEC (23.90-30.70); Prothrombin Time 11.7 Seconds (9.50-12.10)
[2022-07-10 14:52] LABS: Band Neutrophils Percent 0 % (0-6); Basophils Absolute Manual 0.03 K/mm3 (0-0.1); Basophils Percent Manual 1 % (0-1); Eosinophils Absolute Manual 0.07 K/mm3 (0.02-0.5); Eosinophils Percent Manual 2 % (1-6); Lymphocytes Absolute Manual 1.32 K/mm3 (1.1-4.5); Lymphocytes Percent Manual 34 % (18-44); Monocytes Absolute Manual 0.27 K/mm3 (0.1-0.90); Monocytes Percent Manual 7 % (3-9); Neutrophils Absolute Manual 2.18 K/mm3 (1.3-6.7); Neutrophils Percent Manual 56 % (46-73); Platelet Estimate Decreased (Adequate); Total Cells Counted 100
[2022-07-10 15:10] LABS: Alanine Aminotransferase 32 U/L (16-63); Albumin Level 2.5 g/dL (3.4-5.0); Alkaline Phosphatase 284 U/L (46-116); Anion Gap 14 mmol/L (8-16); Aspartate Amino Transferase 34 U/L (15-37); Bilirubin,Total 0.8 mg/dL (0.00-1.00); Blood Urea Nitrogen 41 mg/dL (7-18); Calcium 8.9 mg/dL (8.5-10.1); Carbon Dioxide 22 mmol/L (21-32); Chloride 103 mmol/L (98-108); Estimated Glomerular Filt Rate 28; Ferritin 548 ng/mL (26-388); Glucose 333 mg/dL (70-99); Iron 78 ug/dL (65-175); Osmolality Calculated 311 mOsm/kg (285-295); Sodium 139 mmol/L (136-145); Total Protein 7.3 g/dL (6.4-8.2)
[2022-07-10 16:00] LABS: Appearance Urine Turbid (Clear); Bilirubin Urine Negative (Negative); Blood Urine 3+ (Negative); Glucose Urine UA Negative (Negative); Ketones Urine Negative (Negative); Leukocyte Esterase Ur 3+ (Negative); Nitrate Urine Negative (Negative); Protein Urine 2+ (Negative); Specific Grav Ur 1.015 (1.010-1.020); Urobilinogen Urine 0.2 mg/dL (0.2-1.0)
[2022-07-10 16:08] LABS: Add Urine Microscopic? YES; Color Urine Dark Yellow (Yellow); Squamous Epithelial Cell Urine Rare /hpf (Few); WBC Urine >75 /hpf (0-3)
[2022-07-10 16:09] LABS: Bacteria Urine 1+ /hpf
== END 2022-07-10 14:12 | disposition home or self-care (01) ==
LOC: CHSLAB 14:13
PROVIDERS: PCP Internal Medicine; Visit Provider Internal Medicine
DX: K92.1 Melena (principal); R30.0 Dysuria
CPT/HCPCS: 36415; 80053; 81001; 82728; 83540; 85025; 85046; 85055; 85610; 85730; 87086; 87088

== ENCOUNTER 2022-08-04 05:27 | Outpatient (CLI) | payer MEDICARE, SELFPAY | END 2022-08-04 05:28 | disposition home or self-care (01) | PROVIDERS: PCP Internal Medicine; Visit Provider Internal Medicine Gastroenterology | PROC: 0DJ07ZZ Inspection of Upper Intestinal Tract, Via Natural or Artificial Opening (ICD-10-PCS; CPT 91110; principal; 2022-08-04 07:00) | DX: Z01.818 Encounter for other preprocedural examination (principal) | CPT/HCPCS: 91110 ==

== ENCOUNTER 2022-08-24 16:50 | Emergency (ER) | payer MEDICARE, SELFPAY ==
[2022-08-24] VITALS (8 sets, daily range): BP systolic 123–163; BP diastolic 68–128; PULSE 66–90; RESP 18–24; TEMP 37–37.2; O2SAT 94–100
--- NOTE | ~2022-08-24 | XR_ITS ---
EXAMINATION: XR chest 1V portable INDICATION: Weakness TECHNIQUE: Portable AP chest at 1738 hours COMPARISON: 04/29/2022 FINDINGS: There are airspace opacities of the right lung base. There is a small right pleural effusio n. No pneumothorax is identified. The cardiomediastinal silhouette is stable. IMPRESSION: 1. Right basilar airspace opacity, consistent with atelectasis versus pneumonia. 2. Small right pleural effusion. Reviewed, dictated and finalized at location L. IMPRESSION: 1. Right basilar airspace opacity, consistent with atelectasis versus pneumonia . 2. Small right pleural effusion.
--- NOTE | 2022-08-24 17:11 | ECG_ITS ---
Measurements Intervals [place] Rate: 80 P: 0 WI: 217 QRS: -30 QRSD: 154 T: -26 QT: 371 QTc: 428 Interpretive Statements POOR DATA QUALITY/DIFFICULT INTERPRETATION CANNOT DIAGNOSE ATRIAL RHYTHM WITH CERTAINTY GIVEN POOR QUALITY TRACING RIGHT BUNDLE BRANCH BLOCK ABNORMAL ECG COMPARED TO ECG 03/12/2022 22:01:29 NOT POSSIBLE TO COMMENT ON ATRIAL RHYTHM GIVEN SIGNIFICANT BASELINE ARTIFACT OTHERWISE NO OBVIOUS CHANGE COMPARED TO PREVIOUS TRACING Electronically Signed On 08-25-2022 17:35:13 CDT by Stewart Garcia M.D.
[2022-08-24 17:29] LABS: Hematocrit 31.7 % (37.0-46.0); Hemoglobin 10.9 g/dL (12.4-15.3); Immature Platelet Fraction Pct 1.7 % (1.0-7.0); Mean Corpuscular HGB Conc 34.4 g/dL (32.0-36.0); Mean Corpuscular Hemoglobin 32.1 pg (27.0-31.0); Mean Corpuscular Volume 93.2 fL (78.0-102.0); Mean Platelet Volume 10.8 fl (8.7-11.0); Platelet Count Result 68 K/mm3 (150-420); Red Cell Distribution Width 15.8 % (11.6-14.4); White Blood Count 3.1 K/mm3 (4.8-10.8)
[2022-08-24 17:45] LABS: INR 1.1; Partial Thromboplastin Time 27.6 SEC (23.90-30.70); Prothrombin Time 12.4 Seconds (9.50-12.10)
[2022-08-24] MEDS: SODIUM CHLORIDE 0.9% IV 500 ML 999 ML IV CONT (17:56)
[2022-08-24 17:59] LABS: Alanine Aminotransferase 7 U/L (16-63); Albumin Level 2.1 g/dL (3.4-5.0); Alkaline Phosphatase 214 U/L (46-116); Anion Gap 12 mmol/L (8-16); Aspartate Amino Transferase 15 U/L (15-37); Blood Urea Nitrogen 53 mg/dL (7-18); Calcium 8.7 mg/dL (8.5-10.1); Carbon Dioxide 20 mmol/L (21-32); Chloride 98 mmol/L (98-108); Estimated Glomerular Filt Rate 21; Potassium 3.4 mmol/L (3.5-5.1); Sodium 130 mmol/L (136-145); Troponin I 15.4 ng/L (0.00-60.4)
[2022-08-24 18:00] LABS: Band Neutrophils Percent 0 % (0-6); Basophils Absolute Manual 0.03 K/mm3 (0-0.1); Basophils Percent Manual 1 % (0-1); Eosinophils Absolute Manual 0.03 K/mm3 (0.02-0.5); Eosinophils Percent Manual 1 % (1-6); Lymphocytes Absolute Manual 0.34 K/mm3 (1.1-4.5); Lymphocytes Percent Manual 11 % (18-44); Monocytes Absolute Manual 0.21 K/mm3 (0.1-0.90); Monocytes Percent Manual 7 % (3-9); Neutrophils Absolute Manual 2.48 K/mm3 (1.3-6.7); Neutrophils Percent Manual 80 % (46-73); Platelet Estimate Decreased (Adequate)
[2022-08-24 18:02] LABS: Glucose > 500 mg/dL (70-99); Osmolality Calculated 307 mOsm/kg (285-295)
[2022-08-24 18:07] LABS: Appearance Urine Clear (Clear); Bilirubin Urine 2+ (Negative); Blood Urine 3+ (Negative); Glucose Urine UA 3+ (Negative); Ketones Urine 1+ (Negative); Leukocyte Esterase Ur 3+ LEU/UL (Negative); Nitrate Urine Positive (Negative); Protein Urine 3+ (Negative)
[2022-08-24 18:10] LABS: Occult Blood Negative (Negative)
[2022-08-24 18:20] LABS: Add Urine Microscopic? YES; Bacteria Urine None seen /hpf; Color Urine Dark Brown (Yellow); RBC Urine >75 /hpf (0-2); Squamous Epithelial Cell Urine None seen /hpf (Few); WBC Urine >75 /hpf (0-3)
[2022-08-24 18:29] LABS: NT Pro B Type Natriuretic Pept 1387 pg/mL (0-450)
[2022-08-24] MEDS: SODIUM CHLORIDE 0.9% IV 1,000 ML 999 ML IV CONT (18:33)
--- NOTE | 2022-08-24 18:34 | ED.GENADULT ---
HPI - General Adult General Chief complaint: Unspecified Stated complaint: lethargic/hematuria Source: patient, family and EMS Mode of arrival: EMS History of Present Illness HPI narrative: this is 87-year-old gentleman that presents via EMS after he has been having episodes of gross hematuria for the last 24hours and has gotten worse recently, the patient also has had weakness with thumb no fever chills no chest pain or shortness of breath, via EMS found his glucose to be greater than 400. Patient has history of a GI bleed with rectal varices and had a workup performed. Currently there is no nausea or vomiting no fever chills his vitals are stable blood pressure 140/90. Patient has a history of hypertension, hyperlipidemia, diabetes and BPH. Patient is currently on glimepiride for his diabetes. Onset (ago): day(s) Severity: severe Associated symptoms: weakness Related Data Home Medications Medication Instructions Recorded Confirmed allopurinol 100 mg tablet 100 mg PO DAILY 05/26/20 08/24/22 atorvastatin 40 mg tablet 20 mg PO DAILY 05/26/20 08/24/22 folic acid 1 mg tablet 1 mg PO DAILY 05/26/20 08/24/22 tamsulosin 0.4 mg capsule 0.8 mg PO BID 05/26/20 08/24/22 ferrous sulfate 134 mg (27 mg 134 mg PO DAILY 02/22/22 08/24/22 iron) tablet carvedilol 3.125 mg tablet 1.56 mg PO TID 03/12/22 08/24/22 Allergies Allergy/AdvReac Type Severity Reaction Status Date / Time No Known Allergies Allergy Verified 07/18/22 15:00 Review of Systems Review of Systems: All systems reviewed & are unremarkable except as noted in HPI and below PMFSH Past Medical History Medical History Acute UTI (urinary tract infection) BPH (benign prostatic hyperplasia) CAD (coronary artery disease) Dehydration, mild Diabetes 1.5, managed as type 2 Gout History of kidney stones Hyperlipidemia Hypertension Viral syndrome Surgical History Surgical History H/O hernia repair H/O removal of cyst On his chest History of back surgery History of cardiac catheterization Stented coronary artery 2015, and 2018 Family History Family History Father Heart disease Diabetes mellitus Sibling Diabetes mellitus Social History Social History Social History: The patient lives with his has 2 Children. Patient is retired from [email or web address]. The patient stated he used to drink heavily but does not drink anymore. His is the durable power title attorney for healthcare. Code status full code Smoking status: Never smoker Tobacco type: cigarettes Second hand tobacco smoke exposure: No Alcohol intake: never Substance use: never Substance use type: does not use Lack of Transportation: No Lack of Food: Never True Current Housing: I Have Housing Concerned About Future Housing: No Difficulty Paying Gas/Electric Bills: No Difficulty Paying for Meds: No Currently Unemployed: No Education: High School Diploma/GED Difficulty w/ Childcare or Family Care: No Living arrangements: with family Spiritual care concerns: No Exam Const: General: cooperative and comfortable Eyes: General: appearance normal, both eyes and all related structures Neck: Neck: normal visual inspection, full ROM and no lymphadenopathy Chest: Chest palpation & inspection: normal inspection of the chest Resp: Effort & Inspection: normal respiratory effort and able to speak in complete sentences Cardio: Jugular venous distension: no JVD Palpation: normal PMI Rate: regular rate Rhythm: regular rhythm Heart sounds: S1 normal heart sound present and S2 normal heart sound present GI: Inspection: normal to inspection GI Palp: Yes abdominal tenderness : General: Yes bimanual renal exam normal bilaterally Urinary Catheter: Ur
[2022-08-24] MEDS: AZITHROMYCIN 500 MG/NS 250 ML 500 MG/250 ML BAG 250 MG IVPB (18:44)
[2022-08-24 19:02] LABS: Base Excess ABG -5.9 mmol/L (0-2); HCO3 ABG 15.8 mmol/L (23-29); Oxygen Content ABG 14.3 %vol (16.0-22.0); Oxygen Saturation ABG 96.4 % (95-97); Oxyhemoglobin 95.9 % (94-100); Total Hemoglobin 10.5 g/dL (12.0-18.0); pH ABG 7.49 (7.35-7.45)
[2022-08-24 19:05] LABS: Device ROOM AIR; Modified Allen's Test Pass; Site Drawn LEFT RADIAL
[2022-08-24 19:28] LABS: Glucose Point of Care > 450 mg/dl (65-105)
[2022-08-24] MEDS: INSULIN REG 100 UNITS/100 ML 100 UNITS/100 ML BAG 8.8 UNITS IV CONT (19:29)
[2022-08-24] MEDS: KCL 20 MEQ/SW 100 ML 100 ML 50 MEQ IVPB (19:36)
[2022-08-24 20:34] LABS: Glucose Point of Care > 450 mg/dl (65-105)
--- NOTE | 2022-08-24 20:44 | PC.NURSE ---
2039 RN spoke with Kenyon Wilkins Pharmacist who states that we will treat Accucheck >500 as 501 for rate titration protocol. Pt new rate for insulin drip is 13.2 u/hr. Will recheck blood sugar in 1 hour
[2022-08-24 21:51] LABS: Glucose Point of Care 448 mg/dl (65-105)
[2022-08-24 22:50] LABS: Glucose Point of Care 299 mg/dl (65-105)
--- NOTE | 2022-08-24 23:01 | PC.NURSE ---
Verbal orders by Dr. Miranda to stop insulin infusion for transport.
--- NOTE | 2022-08-26 13:15 | PC.NURSE ---
Addendum entered by Bianca Rossi RN 08/26/22 13:17: this report reviewed was urine culture... no growth Original Note: final blood cultures x2 reviewed. no growth after 5 days. no change in plan of care.
--- NOTE | 2022-08-31 13:46 | PC.NURSE ---
Final blood culture report: no growth after 5 days, no further action or treatment needed.
== END 2022-08-24 23:01 | disposition short-term general hospital (02) ==
PROVIDERS: Emergency Provider Emergency Medicine; PCP Internal Medicine
DX: E11.10 Type 2 diabetes mellitus with ketoacidosis without coma (principal); R31.0 Gross hematuria; J18.9 Pneumonia, unspecified organism; I25.10 Atherosclerotic heart disease of native coronary artery without angina pectoris; E78.5 Hyperlipidemia, unspecified; I12.9 Hypertensive chronic kidney disease with stage 1 through stage 4 chronic kidney disease, or unspecified chronic kidney disease; N18.32 Chronic kidney disease, stage 3b; I48.91 Unspecified atrial fibrillation; Z79.899 Other long term (current) drug therapy
CPT/HCPCS: 36415; 36600; 71045; 80053; 81001; 82805; 82948; 83605; 83880; 84484; 85025; 85055; 85610; 85730; 87040; 87086; 93005; 96361; 96365; 96366; 96367; 96368; 99291; J0456; J0696; J1815; J3480; J7030; J7040

== ENCOUNTER 2022-08-24 23:44 | Inpatient (IN) | payer MEDICARE, SELFPAY ==
--- NOTE | ~2022-08-24 | US_ITS ---
Renal-Bladder ultrasound Clinical History: Acute kidney injury Technique: Real-time sonographic imaging of the kidneys and urinary bladder was performed. Findings: The right kidney measures 10.2 cm in length and the left kidney measures 9.4 cm. There is n o hydronephrosis or renal calculus identified. Renal cortical echogenicity is increased. No renal mas s lesion is identified. The urinary bladder is collapsed around a Nelson catheter. Possible urinary bladder wall thickening. Impression: No hydronephrosis. Increased renal echogenicity suggest chronic medical renal disease. Possible wall thickening of urinary bladder, which is collapsed with Nelson catheter in place. Correla te for cystitis versus physiologic thickening due to underdistention. Reviewed, dictated and finalized at location M. Impression: No hydronephrosis. Increased renal echogenicity suggest chronic medical renal disease. Possible wall thickening of urinary bladder, which is collapsed with Nelson cath eter in place. Correlate for cystitis versus physiologic thickening due to unde rdistention.
--- NOTE | 2022-08-24 23:30 | ADMGEN ---
This patient, Jaspal Ruggiero, was admitted to Intensive Care Unit-7. Patient/family oriented to hospital policies and general routines including ID bracelet, bed and alarms, visiting hours, pain management, procedures, bathroom and other care routines, personal items, smoking policy, room service/diet, and visiting hours. Information on how to activate the Rapid Response Team has been discussed. Patient/Family are encouraged to report perceived risks to care and to ask questions if they do not understand what they are told or what they should do.
--- NOTE | 2022-08-24 23:40 | PM.IMHP ---
H&P: HPI History of Present Illness Date/Time: 08/24/22 23:40 Chief Complaint: ams Narrative: This is an 87-year-old male with past medical history significant for coronary artery disease, diabetes mellitus insulin dependent, benign prostatic hyperplasia, hypertension, hyperlipidemia. Patient was brought to outside hospital for evaluation to the emergency room due to altered mental status and blood in the urine for several days. In the emergency room instead mimi patient was found to have uncontrolled blood sugars as well and being in DKA was placed on insulin drip and started on antibiotics after he was noted to have lung infiltrates and urine infection. Patient has been transferred to our facility to our intensive care unit. Patient is able to give some history however he thinks that it is December. EXAMINATION: XR chest 1V portable INDICATION: Weakness TECHNIQUE: Portable AP chest at 1738 hours COMPARISON: 04/29/2022 FINDINGS: There are airspace opacities of the right lung base. There is a small right pleural effusion. No pneumothorax is identified. The cardiomediastinal silhouette is stable. IMPRESSION: 1. Right basilar airspace opacity, consistent with atelectasis versus pneumonia. 2. Small right pleural effusion. Review of Systems Review of Systems: Hematuria, altered mental status ROS unobtainable: Yes unobtainable due to mental status (Delirium) [facility] Past Medical History Medical History (Updated 08/25/22 @ 00:01 by Background Daemon) Acute UTI (urinary tract infection) BPH (benign prostatic hyperplasia) CAD (coronary artery disease) Dehydration, mild Diabetes 1.5, managed as type 2 Gout History of kidney stones Hyperlipidemia Hypertension Viral syndrome Surgical History Surgical History H/O hernia repair H/O removal of cyst On his chest History of back surgery History of cardiac catheterization Stented coronary artery 2016, and 2018 Family History Family History Father Heart disease Diabetes mellitus Sibling Diabetes mellitus Social History Social History Social History: The patient lives with his has 2 Children. Patient is retired from [employer]. The patient stated he used to drink heavily but does not drink anymore. His is the durable power commonwealth attorney for healthcare. Code status full code Smoking status: Never smoker Tobacco type: cigarettes Second hand tobacco smoke exposure: No Alcohol intake: former Substance use: never Substance use type: does not use Lack of Transportation: No Lack of Food: Never True Current Housing: I Have Housing Concerned About Future Housing: No Difficulty Paying Gas/Electric Bills: No Difficulty Paying for Meds: No Currently Unemployed: No Education: High School Diploma/GED Difficulty w/ Childcare or Family Care: No Living arrangements: with family Spiritual care concerns: No Meds Home Medications and Allergies Home Medications Medication Instructions Recorded Confirmed Type allopurinol 100 mg tablet 100 mg PO DAILY 05/26/20 08/24/22 History atorvastatin 40 mg tablet 20 mg PO DAILY 05/26/20 08/24/22 History folic acid 1 mg tablet 1 mg PO DAILY 05/26/20 08/24/22 History tamsulosin 0.4 mg capsule 0.8 mg PO BID 05/26/20 08/24/22 History ferrous sulfate 134 mg (27 mg 134 mg PO DAILY 02/22/22 08/24/22 History iron) tablet carvedilol 3.125 mg tablet 1.56 mg PO TID 03/12/22 08/24/22 History pantoprazole 40 mg tablet,delayed 40 mg PO QAM #30 tabs 08/10/22 08/24/22 Rx release Allergies Allergy/AdvReac Type Severity Reaction Status Date / Time No Known Allergies Allergy Verified 07/18/22 15:00 Exam Narrative: Laying in bed Const: General: comfortable, no acute distress, well developed, ill appearing acut
[2022-08-24 23:43] VITALS: BP 125/71; PULSE 93; RESP 20; TEMP 37.2; O2SAT 100
[2022-08-25] VITALS (13 sets, daily range): BP systolic 113–151; BP diastolic 66–84; PULSE 77–89; RESP 17–21; TEMP 36.6–37.7; O2SAT 98–100; BMI 25.2
[2022-08-25] MEDS: KCL 20 MEQ/D5/0.45% SOD CHL 1,000 ML 150 ML IV CONT (00:25)
[2022-08-25 00:34] LABS: Glucose Point of Care 212 mg/dl (65-105)
[2022-08-25] MEDS: INSULIN HUMAN REGULAR (*BKC) 100 UNITS in SODIUM CHLORIDE 0.9% IV 99 ML IV CONT (00:51)
[2022-08-25 00:54] LABS: Glucose Point of Care 139 mg/dl (65-105)
[2022-08-25] MEDS: INSULIN GLARGINE (*BKC) 100 UNITS/ML 20 UNITS SUB-Q (01:53)
[2022-08-25 02:25] LABS: Glucose Point of Care 108 mg/dl (65-105)
[2022-08-25] MEDS: MAGNESIUM SULF 2 GM/WATER 50ML 2 GM/50 ML BAG IVPB (02:30)
[2022-08-25] MEDS: POTASSIUM CHLORIDE INJ 40 MEQ in SODIUM CHLORIDE 0.9% IV 500 ML 125 MEQ IVPB (03:54)
[2022-08-25 03:55] LABS: Glucose Point of Care 115 mg/dl (65-105)
[2022-08-25 04:05] LABS: Anion Gap 10 mmol/L (8-16); Blood Urea Nitrogen 45 mg/dL (9-20); Calcium 8.6 mg/dL (8.4-10.2); Carbon Dioxide 15 mmol/L (22-30); Chloride 110 mmol/L (98-107); Estimated CRCL calculation 19 ml/min; Estimated Glomerular Filt Rate 26; Glucose 85 mg/dL (65-110); Hemoglobin A1C 10.1 % (<5.7); Magnesium 1.3 mg/dL (1.6-2.3); Phosphorus 1.3 mg/dL (2.5-4.5); Potassium 2.9 mmol/L (3.4-5.0); Sodium 135 mmol/L (137-145)
--- NOTE | 2022-08-25 06:53 | WPDURCON ---
Assessment and Plan Assessment and plan (1) UTI (urinary tract infection): Code(s): N39.0 - Urinary tract infection, site not specified Status: Acute (2) Acute kidney injury superimposed on CKD: Code(s): N17.9 - Acute kidney failure, unspecified; N18.9 - Chronic kidney disease, unspecified Status: Acute (3) Gross hematuria: Code(s): R31.0 - Gross hematuria Status: Inactive Assessment and Plan: Gross hematuria likely due to hemorrhagic cystitis. Bleeding seems to have improved significantly over for just a few hours since receiving antibiotics. Upper tract imaging with a noncontrast CT scan the abdomen pelvis in February 2022 is likely sufficient screening for upper urinary tract pathology Currently, will plan no further intervention for this transient hematuria. He should follow-up subsequent to discharge to recheck a urinalysis. If hematuria persist after treatment for presumed UTI we can do an outpatient cystoscopy. Urology Consult Note HPI Date Seen: 08/25/22 Requesting Physician: Eileen Stafford MD Primary Care Provider: Yeyo Henriquez MD Consult Narrative Narrative: Jaspal Ruggiero is a 87 year old male who has seen Dr. Galvan in the remote past for an atypical lesion in his kidney which turned out to be a cyst. He was transferred last night from [facility] after presenting with hematuria but being found to have significant concurrent medical issues including profound hyperglycemia. Nelson catheter was placed at the outside facility. This morning his urine is minimally blood tinged. His urinalysis is suggestive of infection and I suspect his hematuria is due to hemorrhagic cystitis. He had CT scan of the abdomen and pelvis without contrast in February 2022 that shows normal upper urinary tracts. Review of Systems Review of Systems: ROS unobtainable: Yes unobtainable due to mental status PMFSH Past Medical History Medical History (Updated 08/25/22 @ 00:01 by Background Daemon) Acute UTI (urinary tract infection) BPH (benign prostatic hyperplasia) CAD (coronary artery disease) Dehydration, mild Diabetes 1.5, managed as type 2 Gout History of kidney stones Hyperlipidemia Hypertension Viral syndrome Surgical History Surgical History H/O hernia repair H/O removal of cyst On his chest History of back surgery History of cardiac catheterization Stented coronary artery 2016, and 2018 Family History Family History Father Heart disease Diabetes mellitus Sibling Diabetes mellitus Social History Social History Social History: The patient lives with his has 2 Children. Patient is retired from [employer]. The patient stated he used to drink heavily but does not drink anymore. His is the durable power campus police officer for healthcare. Code status full code Smoking status: Never smoker Tobacco type: cigarettes Second hand tobacco smoke exposure: No Alcohol intake: former Substance use: never Substance use type: does not use Lack of Transportation: No Lack of Food: Never True Current Housing: I Have Housing Concerned About Future Housing: No Difficulty Paying Gas/Electric Bills: No Difficulty Paying for Meds: No Currently Unemployed: No Education: High School Diploma/GED Difficulty w/ Childcare or Family Care: No Living arrangements: with family Spiritual care concerns: No Meds Home Medications and Allergies Home Medications Medication Instructions Recorded Confirmed Type allopurinol 100 mg tablet 100 mg PO DAILY 05/26/20 08/24/22 History atorvastatin 40 mg tablet 20 mg PO DAILY 05/26/20 08/24/22 History folic acid 1 mg tablet 1 mg PO DAILY 05/26/20 08/24/22 History tamsulosin 0.4 mg capsule 0.8 mg PO BID 05/26/20 08/24/22 H
--- NOTE | 2022-08-25 08:02 | WPDCNINT ---
Assessment and Plan Assessment and plan (1) Hyperglycemia due to diabetes mellitus: Code(s): E11.65 - Type 2 diabetes mellitus with hyperglycemia Status: Acute Assessment and Plan: 08/24 patient presented to the ED and [facility] in [facility] with complains of weakness, gross hematuria, was found to have blood sugars >500, no anion gap. Likely uncontrolled hyperglycemia secondary to UTI, possible pneumonia -patient was started on insulin infusion per DKA protocol and transferred to the ICU at [facility] for further management. -patient has been already transition to long-acting insulin Lantus -started on diabetic diet -will add Accu-Cheks and sliding scale insulin -dietitian and early childhood special educator have been consulted -hemoglobin A1c 10.1 this admission (2) Gross hematuria: Code(s): R31.0 - Gross hematuria Status: Inactive Assessment and Plan: Patient presented the outside hospital with gross hematuria which could be related to the UTI, kidney stones, hemorrhagic cystitis -appreciate urology evaluation and recommendation -no further plan for intervention at this time -CT scan of the abdomen and pelvis without contrast in February 2022 showed normal upper urinary tracts (3) Acute UTI (urinary tract infection): Code(s): N39.0 - Urinary tract infection, site not specified Status: Acute Assessment and Plan: UA is reflective of acute UTI, could be hemorrhagic cystitis which could be the cause of the hematuria -continue ceftriaxone -08/24: urine cultures have been obtained and pending (4) Hypertension: Code(s): I10 - Essential (primary) hypertension Status: Chronic Assessment and Plan: Essential hypertension, continue carvedilol (5) Hyperlipidemia: Code(s): E78.5 - Hyperlipidemia, unspecified Status: Acute Assessment and Plan: Continue atorvastatin (6) Pneumonia: Code(s): J18.9 - Pneumonia, unspecified organism Status: Acute Assessment and Plan: Chest x-ray showed right basilar airspace opacity consistent with atelectasis versus pneumonia -patient has been started on azithromycin and ceftriaxone (08/24) -denies any shortness of breath, cough, wheezing (7) Acute kidney injury superimposed on CKD: Code(s): N17.9 - Acute kidney failure, unspecified; N18.9 - Chronic kidney disease, unspecified Status: Acute Assessment and Plan: Acute on chronic kidney disease (baseline creatinine 1.5-1.7) -this admission creatinine is 2.80, patient did receive IV fluids -BUN and creatinine trending down -continue to monitor urine output, electrolytes and renal function -hypokalemia, hypomagnesia, has been repleted, will recheck BMP and replace as needed (8) Gout: Code(s): M10.9 - Gout, unspecified Status: Acute Assessment and Plan: History of gout, will hold allopurinol which is his home med due to acute on chronic kidney disease -will restart once creatinine is back to baseline (9) Thrombocytopenia: Code(s): D69.6 - Thrombocytopenia, unspecified Status: Acute Assessment and Plan: Patient has chronic thrombocytopenia as noticed in the chart since 2019 -continue to monitor -will avoid anticoagulation Plan DVT prophylaxis: SCDs Stress ulcer prophylaxis: Protonix Nutrition: Diabetic diet Code Status: Full code Critical Care Time Spent: 47 minutes Due to a high probability of clinically significant, life threatening deterioration, the patient required my highest level of preparedness to intervene emergently and I personally spent this critical care time directly and personally managing the patient. This critical care time included obtaining a history; examining the patient; pulse oximetry; ordering and review of studies; arranging urgent treatment with development of a management plan; evaluation of patient's response to treatment; frequent reassessment; and d
[2022-08-25 08:04] LABS: Glucose Point of Care 137 mg/dl (65-105)
[2022-08-25 09:06] LABS: Hematocrit 30.2 % (42.0-52.0); Hemoglobin 10.4 g/dL (14.0-18.0); Immature Platelet Fraction Pct 1.7 % (0.9-11.2); Mean Corpuscular HGB Conc 34.4 g/dl (32-36); Mean Corpuscular Hemoglobin 31.4 pg (26-34); Mean Corpuscular Volume 91.2 fl (80-100); Mean Platelet Volume 10.4 fl (7.4-10.4); Platelet Count Result 75 k/mm3 (150-375); Red Blood Count 3.31 M/mm3 (4.6-6.20); White Blood Count 5.7 K/mm3 (4.5-10.0)
[2022-08-25 09:16] LABS: Alanine Aminotransferase 21 U/L (6-50); Albumin Level 2.5 g/dL (3.5-5.1); Alkaline Phosphatase 200 U/L (38-126); Anion Gap 6 mmol/L (8-16); Aspartate Amino Transferase 31 U/L (17-59); Bilirubin,Total 0.9 mg/dL (0.2-1.3); Blood Urea Nitrogen 42 mg/dL (9-20); CRP 5.5 mg/dL (<1.0); Calcium 8.4 mg/dL (8.4-10.2); Carbon Dioxide 17 mmol/L (22-30); Chloride 111 mmol/L (98-107); Creatine Kinase 27 U/L (55-170); Estimated CRCL calculation 20 ml/min; Estimated Glomerular Filt Rate 28; Glucose 143 mg/dL (65-110); Magnesium 1.8 mg/dL (1.6-2.3); Phosphorus 1.9 mg/dL (2.5-4.5); Potassium 3.9 mmol/L (3.4-5.0); Sodium 134 mmol/L (137-145)
[2022-08-25] MEDS: FERROUS SULFATE 324 MG TABLET PO (09:24)
[2022-08-25] MEDS: FOLIC ACID 1 MG TABLET PO (09:24)
[2022-08-25] MEDS: ATORVASTATIN 20 MG TABLET PO (09:24)
[2022-08-25] MEDS: carvediloL 1.56 MG TABLET PO ×3 (09:24→17:00)
[2022-08-25] MEDS: PANTOPRAZOLE SODIUM IV 40 MG VIAL IV PUSH ×2 (09:25→21:45)
[2022-08-25 09:41] LABS: Iron 29 ug/dL (49-181)
[2022-08-25 09:50] LABS: Percent Iron Saturation 16 % (20-50)
[2022-08-25 10:20] LABS: Folic Acid > 20.0 ng/mL (2.76->20); Vitamin B12 > 1000.0 pg/mL (239-931)
[2022-08-25 10:31] LABS: Band Neutrophils Percent 24 % (0-6); Basophils Absolute Manual 0.05 K/mm3 (0.0-0.1); Basophils Percent Manual 1 % (0-1); Eosinophils Absolute Manual 0.05 K/mm3 (0.02-0.5); Eosinophils Percent Manual 1 % (0-4); Lymphocytes Absolute Manual 0.17 K/mm3 (1.1-4.5); Monocytes Absolute Manual 0.11 K/mm3 (0.1-0.90); Monocytes Percent Manual 2 % (3-9); Neutrophils Percent Manual 69 % (46-73); Total Cells Counted 100
[2022-08-25 10:35] LABS: Anisocytosis 1+ (NORMAL); Platelet Estimate Decreased (Adequate); Schistocytes None Seen (NORMAL)
[2022-08-25] MEDS: POTASSIUM/PHOSPHORUS/SODIUM 1.5 GM PACKET 1 PACKET PO (11:17)
[2022-08-25 11:19] LABS: Glucose Point of Care 143 mg/dl (65-105)
--- NOTE | 2022-08-25 14:29 | PCPTNOTE ---
Pt on bedrest at this time. Will make RN/hospitalist aware prior to initiation of therapy.
--- NOTE | 2022-08-25 15:25 | PC.NURSE ---
This patient, Jaspal Ruggiero, was transferred to [facility] on 08/25/22 at 1525. Personal belongings sent with patient. Report given to Antonella Almendarez RN. Appropriate documentation sent with patient.
--- NOTE | 2022-08-25 15:51 | PC.NURSE ---
This patient, Jaspal Ruggiero, was received from [ icu 7] on 08/25/22 at 1525. Patient/family oriented to unit policies and routines
[2022-08-25 16:43] LABS: Glucose Point of Care 222 mg/dl (65-105)
[2022-08-25] MEDS: INSULIN ASPART (*BKC) 100 UNITS/ML SUB-Q (17:00)
[2022-08-25] MEDS: cefTRIAXone 2 GM/NS 100 ML 2 GM/100 ML BAG IVPB (17:01)
--- NOTE | 2022-08-25 17:14 | PM.IMPN ---
Progress Note: A&P Assessment and Plan (1) Hyperglycemia due to diabetes mellitus: Code(s): E11.65 - Type 2 diabetes mellitus with hyperglycemia Status: Acute (2) Gross hematuria: Code(s): R31.0 - Gross hematuria Status: Inactive (3) Acute UTI (urinary tract infection): Code(s): N39.0 - Urinary tract infection, site not specified Status: Acute (4) Hypertension: Code(s): I10 - Essential (primary) hypertension Status: Chronic (5) Hyperlipidemia: Code(s): E78.5 - Hyperlipidemia, unspecified Status: Acute (6) Pneumonia: Code(s): J18.9 - Pneumonia, unspecified organism Status: Acute (7) Acute kidney injury superimposed on CKD: Code(s): N17.9 - Acute kidney failure, unspecified; N18.9 - Chronic kidney disease, unspecified Status: Acute (8) Gout: Code(s): M10.9 - Gout, unspecified Status: Acute (9) Thrombocytopenia: Code(s): D69.6 - Thrombocytopenia, unspecified Status: Acute Plan 08/25/2022:Patient presented with episodes of gross hematuria generalized weakness and hyperglycemia. History of cirrhosis with GI bleed with rectal versus hypertension hyperlipidemia BPH history of diabetes on oral hypoglycemic agent. Coronary artery disease status post stents in 2015 and 2018 history of kidney stones gout. ED workup revealed creatinine of 2.8 mild hyponatremia and blood sugar more than 500. Urinalysis positive for more than 75 RBC and more than 35 WBC. He was started on IV fluids and insulin. Anion gap was 12. Chest x-ray with right basilar airspace opacity consistent with atelectasis versus pneumonia. Admitted to ICU and followed up DKA protocol. He was started on Rocephin and azithromycin for pneumonia. IV fluid for BLESSING on CKD stage III. Creatinine baseline 1.5-1.7. Does have a history of interstitial lung disease. Has been transition to long-acting Lantus. A1c 10.1 para educator consultation urology consulted for gross hematuria. CT scan of the abdomen pelvis in February 2022 with normal urinary tracts noted. Likely hematuria due to UTI. On ceftriaxone. History of chronic thrombocytopenia due to underlying cirrhosis. Creatinine continues to improve. CK is normal. Renal ultrasound with no hydronephrosis. Subjective Date/time seen: 08/25/22 17:14 Interval history: Patient presented with episodes of gross hematuria generalized weakness and hyperglycemia. History of cirrhosis with GI bleed with rectal versus hypertension hyperlipidemia BPH history of diabetes on oral hypoglycemic agent. Coronary artery disease status post stents in 2015 and 2018 history of kidney stones gout. ED workup revealed creatinine of 2.8 mild hyponatremia and blood sugar more than 500. Urinalysis positive for more than 75 RBC and more than 35 WBC. He was started on IV fluids and insulin. Anion gap was 12. Chest x-ray with right basilar airspace opacity consistent with atelectasis versus pneumonia. Admitted to ICU and followed up DKA protocol. He was started on Rocephin and azithromycin for pneumonia. IV fluid for BLESSING on CKD stage III. Creatinine baseline 1.5-1.7. Does have a history of interstitial lung disease. Has been transition to long-acting Lantus. A1c 10.1 para educator consultation urology consulted for gross hematuria. CT scan of the abdomen pelvis in February 2022 with normal urinary tracts noted. Likely hematuria due to UTI. On ceftriaxone. History of chronic thrombocytopenia due to underlying cirrhosis. Review of Systems Review of Systems: All systems reviewed & are unremarkable except as noted in HPI and below Exam Narrative: General: Elderly gentleman in no acute distress HEENT:? Pupils equal and reactive, sclera is clear Neck:? Supple Respiratory:? Clear to auscultation bilaterally, decreased at bases bilaterally, adequate air entry Cardiac:? S1-S2 was normal, regular rate and rhythm Abdomen:? Soft, n
[2022-08-25] MEDS: SODIUM CHLORIDE 0.9% IV 1,000 ML 60 ML IV CONT (18:00)
[2022-08-25] MEDS: AZITHROMYCIN 500 MG/NS 250 ML 500 MG/250 ML BAG 250 MG IVPB (18:01)
[2022-08-25 22:17] LABS: Glucose Point of Care 257 mg/dl (65-105)
[2022-08-26 06:00] VITALS: BP 129/74; PULSE 77; RESP 20; TEMP 36.3; O2SAT 100
[2022-08-26 08:06] LABS: Glucose Point of Care 214 mg/dl (65-105)
[2022-08-26] MEDS: INSULIN GLARGINE (*BKC) 100 UNITS/ML 20 UNITS SUB-Q (08:09)
[2022-08-26] MEDS: INSULIN ASPART (*BKC) 100 UNITS/ML SUB-Q ×2 (08:11→11:39)
[2022-08-26] MEDS: PANTOPRAZOLE SODIUM IV 40 MG VIAL IV PUSH (08:12)
[2022-08-26 08:13] VITALS: PULSE 76
[2022-08-26] MEDS: FERROUS SULFATE 324 MG TABLET PO (08:13)
[2022-08-26] MEDS: carvediloL 1.56 MG TABLET PO ×3 (08:13→17:06)
[2022-08-26] MEDS: FOLIC ACID 1 MG TABLET PO (08:13)
[2022-08-26] MEDS: ATORVASTATIN 20 MG TABLET PO (08:14)
--- NOTE | 2022-08-26 10:00 | PC.NURSE ---
Patient has no IV access waiting for placement.
[2022-08-26 11:39] LABS: Glucose Point of Care 233 mg/dl (65-105)
[2022-08-26 11:42] VITALS: PULSE 80
--- NOTE | 2022-08-26 12:51 | PCPTNOTE ---
Attempted to see for PT evaluation, per RN pt is in a lot of pain and is getting a urology consult to help with pain. On hold for today, will continue to follow.
--- NOTE | 2022-08-26 13:36 | PM.IMPN ---
Progress Note: A&P Assessment and Plan (1) Hyperglycemia due to diabetes mellitus: Code(s): E11.65 - Type 2 diabetes mellitus with hyperglycemia Status: Acute (2) Gross hematuria: Code(s): R31.0 - Gross hematuria Status: Inactive (3) Acute UTI (urinary tract infection): Code(s): N39.0 - Urinary tract infection, site not specified Status: Acute (4) Hypertension: Code(s): I10 - Essential (primary) hypertension Status: Chronic (5) Hyperlipidemia: Code(s): E78.5 - Hyperlipidemia, unspecified Status: Acute (6) Pneumonia: Code(s): J18.9 - Pneumonia, unspecified organism Status: Acute (7) Acute kidney injury superimposed on CKD: Code(s): N17.9 - Acute kidney failure, unspecified; N18.9 - Chronic kidney disease, unspecified Status: Acute (8) Gout: Code(s): M10.9 - Gout, unspecified Status: Acute (9) Thrombocytopenia: Code(s): D69.6 - Thrombocytopenia, unspecified Status: Acute Plan 08/25/2022:Patient presented with episodes of gross hematuria generalized weakness and hyperglycemia. History of cirrhosis with GI bleed with rectal versus hypertension hyperlipidemia BPH history of diabetes on oral hypoglycemic agent. Coronary artery disease status post stents in 2015 and 2018 history of kidney stones gout. ED workup revealed creatinine of 2.8 mild hyponatremia and blood sugar more than 500. Urinalysis positive for more than 75 RBC and more than 35 WBC. He was started on IV fluids and insulin. Anion gap was 12. Chest x-ray with right basilar airspace opacity consistent with atelectasis versus pneumonia. Admitted to ICU and followed up DKA protocol. He was started on Rocephin and azithromycin for pneumonia. IV fluid for BLESSING on CKD stage III. Creatinine baseline 1.5-1.7. Does have a history of interstitial lung disease. Has been transition to long-acting Lantus. A1c 10.1 marine structural designer consultation urology consulted for gross hematuria. CT scan of the abdomen pelvis in February 2022 with normal urinary tracts noted. Likely hematuria due to UTI. On ceftriaxone. History of chronic thrombocytopenia due to underlying cirrhosis. Creatinine continues to improve. CK is normal. Renal ultrasound with no hydronephrosis. 08/26/2022: Patient presented with episodes of gross hematuria generalized weakness and hyperglycemia. 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 Coronary artery disease status post stents in 2016 and 2018 history of kidney stones gout. ED workup revealed creatinine of 2.8 mild hyponatremia and blood sugar more than 500. Urinalysis positive for more than 75 RBC and more than 35 WBC. He was started on IV fluids and insulin. Anion gap was 12. Chest x-ray with right basilar airspace opacity consistent with atelectasis versus pneumonia. Admitted to ICU and followed up DKA protocol. He was started on Rocephin and azithromycin for pneumonia. IV fluid for BLESSING on CKD stage III. Creatinine baseline 1.5-1.7. Does have a history of interstitial lung disease. Has been transition to long-acting Lantus. A1c 10.1 marine structural designer consultation urology consulted for gross hematuria. CT scan of the abdomen pelvis in February 2022 with normal urinary tracts noted. Likely hematuria due to UTI. On ceftriaxone. History of chronic thrombocytopenia due to underlying cirrhosis. Creatinine continues to improve. CK is normal. Renal ultrasound with no hydronephrosis. Hematuria persist. Urology on board. Labs pending from this a.m. Subjective Date/time seen: 08/26/22 13:36 Interval history: Patient presented with episodes of gross hematuria generalized weakness and hyperglycemia. History of cirrhosis with GI bleed with rectal versus hypertension hyperlipidemia BPH history of diabetes on oral hypoglycemic agent. Coronary artery diseas
[2022-08-26 14:03] VITALS: BP 114/70; PULSE 68; RESP 18; TEMP 36.4; O2SAT 98
[2022-08-26 15:30] LABS: Hematocrit 29.5 % (42.0-52.0); Immature Platelet Fraction Pct 2.7 % (0.9-11.2); Mean Corpuscular HGB Conc 33.9 g/dl (32-36); Mean Corpuscular Hemoglobin 31.8 pg (26-34); Mean Corpuscular Volume 93.9 fl (80-100); Platelet Count Result 62 k/mm3 (150-375); Red Blood Count 3.14 M/mm3 (4.6-6.20); Red Cell Distribution Width 16.5 % (11.5-14.5); White Blood Count 4.9 K/mm3 (4.5-10.0)
[2022-08-26 15:41] LABS: Alanine Aminotransferase 27 U/L (6-50); Albumin Level 2.3 g/dL (3.5-5.1); Alkaline Phosphatase 210 U/L (38-126); Anion Gap 7 mmol/L (8-16); Aspartate Amino Transferase 47 U/L (17-59); Bilirubin,Total 0.6 mg/dL (0.2-1.3); Blood Urea Nitrogen 38 mg/dL (9-20); Calcium 7.7 mg/dL (8.4-10.2); Carbon Dioxide 16 mmol/L (22-30); Chloride 109 mmol/L (98-107); Estimated CRCL calculation 22 ml/min; Estimated Glomerular Filt Rate 32; Glucose 210 mg/dL (65-110); Magnesium 1.8 mg/dL (1.6-2.3); Potassium 3.5 mmol/L (3.4-5.0); Sodium 132 mmol/L (137-145)
[2022-08-26 15:54] LABS: Band Neutrophils Percent 10 % (0-6); Lymphocytes Absolute Manual 0.34 K/mm3 (1.1-4.5); Monocytes Absolute Manual 0.14 K/mm3 (0.1-0.90); Monocytes Percent Manual 3 % (3-9); Neutrophils Absolute Manual 4.41 K/mm3 (1.3-6.7); Neutrophils Percent Manual 80 % (46-73); Platelet Estimate Decreased (Adequate); Total Cells Counted 100
[2022-08-26 15:55] LABS: Anisocytosis 2+ (NORMAL); Schistocytes None Seen (NORMAL)
--- NOTE | 2022-08-26 16:20 | WPDUROPN2 ---
Progress Note: A&P Assessment and Plan (1) Hematuria: Code(s): R31.9 - Hematuria, unspecified Status: Acute Assessment and Plan: Nelson catheter was exchanged draining and irrigated, would continue intermittent bladder irrigation once per shift and as needed for issues with catheter drainage. To do this would instill a full catheter tip syringe worth of saline into the bladder and aspirate to clear any clot. Repeat if clots returned until runs clear. At present not think needs continuous bladder irrigation - our service will follow with you, bleeding does not resolve may need cystoscopy while inpatient otherwise will likely need outpatient cystoscopy - presumed source was urinary tract infection however culture returned negative (2) UTI (urinary tract infection): Code(s): N39.0 - Urinary tract infection, site not specified Status: Acute Subjective Subjective Date/Time Seen: 08/26/22 16:20 Interval history: Was called by nursing to evaluate patient today due to return of hematuria with some difficulty of drainage of the catheter. Patient was seen by our service yesterday after transfer for diabetic ketoacidosis and hematuria. At the time of her evaluation yesterday reportedly the catheter was draining light pink. Per nursing earlier today it has become more bloody. This morning there was some difficulty with catheter drainage and irrigation initially was not successful. Nursing was able to reposition catheter which was a 16 Macedonian silicone coude catheter and established a bit better drainage. On my presentation the patient had about a L of red urine in Nelson bag and no complaints of bladder distention or discomfort. I irrigated the catheter that was in place which was notable for ease the installation of fluid but did not aspirate very well. Given this I elected to exchange catheter for a [address] this was done in usual sterile manner. Then irrigated this catheter I got return with few small clots flecks ( approximately 5 mm in total clot) after multiple rounds of irrigation the urine seemed to be light pink and catheter was draining very well. The patient tolerated this without issue Review of Systems Review of Systems: All systems reviewed & are unremarkable except as noted in HPI and below Constitutional: Comments: lying in bed no apparent distress Exam Const: General: comfortable and no acute distress; No in distress Resp: Effort & Inspection: normal respiratory effort Cardio: Rate: regular rate GI: Inspection: non-distended GI Palp: Yes Soft to palpation and No Tenderness to palpation present (GI) : General: Yes bladder normal to palpation Male General Exam: Yes normal external exam Other: Nelson in place with red urine in bag Objective Data Vital Signs Vital Signs: Vital Signs - 24 hr 08/25/22 17:00 08/25/22 20:20 08/25/22 22:00 Temperature 36.6 C Pulse Rate 86 80 Respiratory Rate 20 Blood Pressure 133/72 Pulse Oximetry 98 99 Oxygen Delivery Room Air 08/26/22 06:00 08/26/22 08:13 08/26/22 08:00 Temperature 36.3 C L Pulse Rate 77 76 Respiratory Rate 20 Blood Pressure 129/74 Pulse Oximetry 100 Oxygen Delivery Room Air 08/26/22 11:42 08/26/22 14:03 Temperature 36.4 C L Pulse Rate 80 68 Respiratory Rate 18 Blood Pressure 114/70 Pulse Oximetry 98 Oxygen Delivery Intake/Output Intake/Output: Intake & Output 08/23/22 08/24/22 08/25/22 08/26/22 23:59 23:59 23:59 23:59 Intake Total 1647 120 Output Total 1075 600 Balance 572 -480 Meds/Results Medications: Active Medications Generic Name Dose Route Start Last Admin Trade Name Freq PRN Reason Stop Dose Admin Acetaminophen 650 mg 08/24/22 23:44 Acetaminophen 325 Mg Tablet PO Q4H PRN Mild Pain (1-3) or Fever Al Hydrox/Mg Hydrox/Simethicone 30 ml 08/24/22 23:44 Mag Hydrox/Al Hydrox/Simeth 30 Ml Udc
[2022-08-26 17:03] LABS: Glucose Point of Care 198 mg/dl (65-105)
[2022-08-26 17:06] VITALS: PULSE 76
[2022-08-26] MEDS: cefTRIAXone 2 GM/NS 100 ML 2 GM/100 ML BAG IVPB (18:16)
[2022-08-26] MEDS: AZITHROMYCIN 500 MG/NS 250 ML 500 MG/250 ML BAG 250 MG IVPB (19:13)
[2022-08-26] MEDS: PANTOPRAZOLE 40 MG TABLET PO (20:12)
[2022-08-26] MEDS: SODIUM CHLORIDE 0.9% IV 1,000 ML 60 ML IV CONT (20:12)
[2022-08-26 20:33] LABS: Glucose Point of Care 272 mg/dl (65-105)
[2022-08-26 20:49] VITALS: BP 113/72; PULSE 75; RESP 18; TEMP 36.8; O2SAT 99
[2022-08-27 05:47] VITALS: BP 139/81; PULSE 70; RESP 18; TEMP 36.5; O2SAT 100
[2022-08-27 06:08] LABS: Basophils Percent Auto 0.2 % (0.2-1.2); Eosinophils Absolute Auto 0.1 K/mm3 (0-0.3); Eosinophils Percent Auto 1.1 % (0-4.4); Hematocrit 29.5 % (42.0-52.0); Hemoglobin 9.8 g/dL (14.0-18.0); Immature Granulocyte Absolute 0.06 K/mm3 (0.00-0.031); Immature Granulocyte Percent A 1.4 % (0-0.5); Immature Platelet Fraction Pct 2.9 % (0.9-11.2); Lymphocytes Absolute Auto 0.82 K/mm3 (0.9-3.2); Lymphocytes Percent Auto 18.8 % (18.3-44.2); Mean Corpuscular HGB Conc 33.2 g/dl (32-36); Mean Corpuscular Volume 93.4 fl (80-100); Mean Platelet Volume 10.4 fl (7.4-10.4); Monocytes Absolute Auto 0.3 K/mm3 (0.1-0.6); Monocytes Percent Auto 6.2 % (2.6-8.5); Neutrophils Absolute Auto 3.2 K/mm3 (1.3-6.7); Neutrophils Percent Auto 72.3 % (45.5-73.1); Platelet Count Result 46 k/mm3 (150-375); Red Blood Count 3.16 M/mm3 (4.6-6.20); Red Cell Distribution Width 16.2 % (11.5-14.5); White Blood Count 4.4 K/mm3 (4.5-10.0)
[2022-08-27 06:22] LABS: Alanine Aminotransferase 26 U/L (6-50); Albumin Level 2.1 g/dL (3.5-5.1); Alkaline Phosphatase 211 U/L (38-126); Anion Gap 6 mmol/L (8-16); Aspartate Amino Transferase 43 U/L (17-59); Bilirubin,Total 0.6 mg/dL (0.2-1.3); Blood Urea Nitrogen 36 mg/dL (9-20); Calcium 7.6 mg/dL (8.4-10.2); Carbon Dioxide 17 mmol/L (22-30); Chloride 109 mmol/L (98-107); Estimated CRCL calculation 23 ml/min; Estimated Glomerular Filt Rate 34; Glucose 218 mg/dL (65-110); Magnesium 1.7 mg/dL (1.6-2.3); Potassium 3.7 mmol/L (3.4-5.0); Sodium 132 mmol/L (137-145)
[2022-08-27 07:27] LABS: Glucose Point of Care 218 mg/dl (65-105)
[2022-08-27 08:01] VITALS: PULSE 80
[2022-08-27] MEDS: FERROUS SULFATE 324 MG TABLET PO (08:01)
[2022-08-27] MEDS: INSULIN ASPART (*BKC) 100 UNITS/ML SUB-Q ×3 (08:01→16:57)
[2022-08-27] MEDS: PANTOPRAZOLE 40 MG TABLET PO ×2 (08:01→20:32)
[2022-08-27] MEDS: INSULIN GLARGINE (*BKC) 100 UNITS/ML 20 UNITS SUB-Q (08:01)
[2022-08-27] MEDS: FOLIC ACID 1 MG TABLET PO (08:01)
[2022-08-27] MEDS: ATORVASTATIN 20 MG TABLET PO (08:01)
[2022-08-27] MEDS: carvediloL 1.56 MG TABLET PO ×3 (08:01→16:57)
--- NOTE | 2022-08-27 10:11 | WPDUROPN2 ---
Progress Note: A&P Assessment and Plan (1) Hematuria: Code(s): R31.9 - Hematuria, unspecified Status: Acute Assessment and Plan: Nelson catheter draining well this morning, would continue intermittent bladder irrigation once per shift and as needed for issues with catheter drainage. To do this would instill a full catheter tip syringe worth of saline into the bladder and aspirate to clear any clot. Repeat if clots returned until runs clear. At present not think needs continuous bladder irrigation - our service will follow with you, if bleeding does not resolve may need cystoscopy while inpatient otherwise will likely need outpatient cystoscopy - presumed source was urinary tract infection however culture returned negative (2) UTI (urinary tract infection): Code(s): N39.0 - Urinary tract infection, site not specified Status: Acute Subjective Subjective Date/Time Seen: 08/27/22 10:11 Interval history: No acute events overnight, Nelson is in place with light red urine in tubing, there are no reported events with irrigation overnight, patient is in chair resting comfortable Exam Const: General: comfortable and no acute distress Resp: Effort & Inspection: normal respiratory effort Cardio: Rate: regular rate GI: Inspection: non-distended GI Palp: Yes Soft to palpation and No Tenderness to palpation present (GI) Urinary Catheter: Urinary Catheter: patent and draining and urine red (Light red in tubing, no clots) Objective Data Vital Signs Vital Signs: Vital Signs - 24 hr 08/26/22 11:42 08/26/22 14:03 08/26/22 17:06 Temperature 36.4 C L Pulse Rate 80 68 76 Respiratory Rate 18 Blood Pressure 114/70 Pulse Oximetry 98 Oxygen Delivery 08/26/22 20:49 08/26/22 20:00 08/27/22 05:47 Temperature 36.8 C 36.5 C Pulse Rate 75 70 Respiratory Rate 18 18 Blood Pressure 113/72 139/81 Pulse Oximetry 99 100 Oxygen Delivery Room Air 08/27/22 08:01 08/27/22 08:18 08/27/22 08:00 Temperature Pulse Rate 80 Respiratory Rate Blood Pressure Pulse Oximetry Oxygen Delivery Room Air Room Air Intake/Output Intake/Output: Intake & Output 08/24/22 08/25/22 08/26/22 08/27/22 23:59 23:59 23:59 23:59 Intake Total 1897 1770 300 Output Total 1075 1100 600 Balance 822 670 -300 Meds/Results Medications: Active Medications Generic Name Dose Route Start Last Admin Trade Name Freq PRN Reason Stop Dose Admin Acetaminophen 650 mg 08/24/22 23:44 Acetaminophen 325 Mg Tablet PO Q4H PRN Mild Pain (1-3) or Fever Al Hydrox/Mg Hydrox/Simethicone 30 ml 08/24/22 23:44 Mag Hydrox/Al Hydrox/Simeth 30 Ml Udc PO QID PRN Dyspepsia Atorvastatin Calcium 20 mg 08/25/22 09:00 08/27/22 08:01 Atorvastatin 20 Mg Tablet PO 20 mg DAILY OSIEL Administration Carvedilol 1.56 mg 08/25/22 08:30 08/27/22 08:01 Carvedilol 1.56 Mg Tablet PO 1.56 mg TIDWM OSIEL Administration Dextrose 12.5 gm 08/24/22 23:43 Dextrose 50% 25 Gm/50 Ml Syringe IV PUSH PRN PRN Hypoglycemia Protocol Ferrous Sulfate 324 mg 08/25/22 09:00 08/27/22 08:01 Ferrous Sulfate 324 Mg Tablet PO 09/24/22 08:59 324 mg DAILY OSIEL Administration Folic Acid 1 mg 08/25/22 09:00 08/27/22 08:01 Folic Acid 1 Mg Tablet PO 1 mg DAILY OSIEL Administration Glucagon 1 mg 08/24/22 23:43 Glucagon For Inj 1 Mg Vial IM PRN PRN Hypoglycemia Protocol Glucose 15 gm 08/24/22 23:43 Glucose Oral Gel 15 Gm Of Glucse In 37.5 Gm Tube PO PRN PRN Hypoglycemia Protocol Dextrose 1,000 mls @ 100 mls/hr 08/24/22 23:43 Dextrose 5% 1,000 Ml IVPB PRN PRN Hypoglycemia Protocol Ceftriaxone Sodium 2 gm in 100 mls @ 200 mls/hr 08/25/22 19:00 08/26/22 18:46 Rocephin 2 Gm/Ns 100 Ml IVPB Infused Q24H OSIEL Infusion Azithromycin 500 mg in 250 mls @ 250 mls/hr 08/25/22 19:00
[2022-08-27 11:33] LABS: Glucose Point of Care 211 mg/dl (65-105)
[2022-08-27 12:02] VITALS: PULSE 74
[2022-08-27] MEDS: SODIUM CHLORIDE 0.9% IV 1,000 ML 60 ML IV CONT (12:04)
--- NOTE | 2022-08-27 12:45 | PM.IMPN ---
Progress Note: A&P Assessment and Plan (1) Hyperglycemia due to diabetes mellitus: Code(s): E11.65 - Type 2 diabetes mellitus with hyperglycemia Status: Acute (2) Gross hematuria: Code(s): R31.0 - Gross hematuria Status: Inactive (3) Acute UTI (urinary tract infection): Code(s): N39.0 - Urinary tract infection, site not specified Status: Acute (4) Hypertension: Code(s): I10 - Essential (primary) hypertension Status: Chronic (5) Hyperlipidemia: Code(s): E78.5 - Hyperlipidemia, unspecified Status: Acute (6) Pneumonia: Code(s): J18.9 - Pneumonia, unspecified organism Status: Acute (7) Acute kidney injury superimposed on CKD: Code(s): N17.9 - Acute kidney failure, unspecified; N18.9 - Chronic kidney disease, unspecified Status: Acute (8) Gout: Code(s): M10.9 - Gout, unspecified Status: Acute (9) Thrombocytopenia: Code(s): D69.6 - Thrombocytopenia, unspecified Status: Acute Plan 08/25/2022:Patient presented with episodes of gross hematuria generalized weakness and hyperglycemia. History of cirrhosis with GI bleed with rectal versus hypertension hyperlipidemia BPH history of diabetes on oral hypoglycemic agent. Coronary artery disease status post stents in 2015 and 2018 history of kidney stones gout. ED workup revealed creatinine of 2.8 mild hyponatremia and blood sugar more than 500. Urinalysis positive for more than 75 RBC and more than 35 WBC. He was started on IV fluids and insulin. Anion gap was 12. Chest x-ray with right basilar airspace opacity consistent with atelectasis versus pneumonia. Admitted to ICU and followed up DKA protocol. He was started on Rocephin and azithromycin for pneumonia. IV fluid for BLESSING on CKD stage III. Creatinine baseline 1.5-1.7. Does have a history of interstitial lung disease. Has been transition to long-acting Lantus. 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 CT scan of the abdomen pelvis in February 2022 with normal urinary tracts noted. Likely hematuria due to UTI. On ceftriaxone. History of chronic thrombocytopenia due to underlying cirrhosis. Creatinine continues to improve. CK is normal. Renal ultrasound with no hydronephrosis. 08/26/2022: Patient presented with episodes of gross hematuria generalized weakness and hyperglycemia. 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 Coronary artery disease status post stents in 2015 and 2018 history of kidney stones gout. ED workup revealed creatinine of 2.8 mild hyponatremia and blood sugar more than 500. Urinalysis positive for more than 75 RBC and more than 35 WBC. He was started on IV fluids and insulin. Anion gap was 12. Chest x-ray with right basilar airspace opacity consistent with atelectasis versus pneumonia. Admitted to ICU and followed up DKA protocol. He was started on Rocephin and azithromycin for pneumonia. IV fluid for BLESSING on CKD stage III. Creatinine baseline 1.5-1.7. Does have a history of interstitial lung disease. Has been transition to long-acting Lantus. 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 CT scan of the abdomen pelvis in February 2022 with normal urinary tracts noted. Likely hematuria due to UTI. On ceftriaxone. History of chronic thrombocytopenia due to underlying cirrhosis. Creatinine continues to improve. CK is normal. Renal ultrasound with no hydronephrosis. Hematuria persist. Urology on board. Labs pending from this a.m. 08/27/2022: Patient presented with episodes of gross hematuria generalized weakness and hyperglycemia. 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 Coronary artery disease status post stents in 2015 and [address]
[2022-08-27 14:00] VITALS: BP 103/61; PULSE 71; RESP 18; TEMP 36.8; O2SAT 98
[2022-08-27 16:37] LABS: Glucose Point of Care 217 mg/dl (65-105)
[2022-08-27 16:57] VITALS: PULSE 74
[2022-08-27] MEDS: AZITHROMYCIN 500 MG/NS 250 ML 500 MG/250 ML BAG 250 MG IVPB (18:02)
[2022-08-27] MEDS: cefTRIAXone 2 GM/NS 100 ML 2 GM/100 ML BAG IVPB (18:03)
[2022-08-27 21:01] LABS: Glucose Point of Care 218 mg/dl (65-105)
[2022-08-27 21:15] VITALS: BP 103/62; PULSE 71; RESP 18; TEMP 36.4; O2SAT 100
[2022-08-28 06:00] VITALS: BP 128/68; PULSE 67; RESP 18; TEMP 36.1; O2SAT 100
--- NOTE | 2022-08-28 06:20 | WPDUROPN2 ---
Progress Note: A&P Assessment and Plan (1) Hematuria: Code(s): R31.9 - Hematuria, unspecified Status: Acute Assessment and Plan: Hematuria resolved - urine clear this morning. Discharge with current indwelling catheter. F/U within several weeks to determine if outpatient cysto. indicated. Subjective Subjective Date/Time Seen: 08/28/22 06:20 Interval history: Comfortable, tolerating catheter Review of Systems Review of Systems: All systems reviewed & are unremarkable except as noted in HPI and below Exam Const: General: no acute distress Resp: Effort & Inspection: normal respiratory effort GI: Inspection: non-distended GI Palp: No abdominal tenderness and No Guarding due to palpation present (GI) Auscultation: normal bowel sounds Urinary Catheter: Urinary Catheter: patent and draining and urine clear Objective Data Vital Signs Vital Signs: Vital Signs - 24 hr 08/27/22 08:01 08/27/22 08:18 08/27/22 08:00 Temperature Pulse Rate 80 Respiratory Rate Blood Pressure Pulse Oximetry Oxygen Delivery Room Air Room Air 08/27/22 12:02 08/27/22 14:00 08/27/22 16:57 Temperature 98.2 F Pulse Rate 74 71 74 Respiratory Rate 18 Blood Pressure 103/61 Pulse Oximetry 98 Oxygen Delivery 08/27/22 21:15 08/28/22 06:00 Temperature 97.5 F L 96.9 F L Pulse Rate 71 67 Respiratory Rate 18 18 Blood Pressure 103/62 128/68 Pulse Oximetry 100 100 Oxygen Delivery Intake/Output Intake/Output: Intake & Output 08/25/22 08/26/22 08/27/22 08/28/22 23:59 23:59 23:59 23:59 Intake Total 1897 1770 2594 50 Output Total 1075 1100 1025 400 Balance 357 862 4507 -350 Meds/Results Medications: Active Medications Generic Name Dose Route Start Last Admin Trade Name Freq PRN Reason Stop Dose Admin Acetaminophen 650 mg 08/24/22 23:44 Acetaminophen 325 Mg Tablet PO Q4H PRN Mild Pain (1-3) or Fever Al Hydrox/Mg Hydrox/Simethicone 30 ml 08/24/22 23:44 Mag Hydrox/Al Hydrox/Simeth 30 Ml Udc PO QID PRN Dyspepsia Atorvastatin Calcium 20 mg 08/25/22 09:00 08/27/22 08:01 Atorvastatin 20 Mg Tablet PO 20 mg DAILY OSIEL Administration Carvedilol 1.56 mg 08/25/22 08:30 08/27/22 16:57 Carvedilol 1.56 Mg Tablet PO 1.56 mg TIDWM OSIEL Administration Dextrose 12.5 gm 08/24/22 23:43 Dextrose 50% 25 Gm/50 Ml Syringe IV PUSH PRN PRN Hypoglycemia Protocol Ferrous Sulfate 324 mg 08/25/22 09:00 08/27/22 08:01 Ferrous Sulfate 324 Mg Tablet PO 09/24/22 08:59 324 mg DAILY OSIEL Administration Folic Acid 1 mg 08/25/22 09:00 08/27/22 08:01 Folic Acid 1 Mg Tablet PO 1 mg DAILY OSIEL Administration Glucagon 1 mg 08/24/22 23:43 Glucagon For Inj 1 Mg Vial IM PRN PRN Hypoglycemia Protocol Glucose 15 gm 08/24/22 23:43 Glucose Oral Gel 15 Gm Of Glucse In 37.5 Gm Tube PO PRN PRN Hypoglycemia Protocol Dextrose 1,000 mls @ 100 mls/hr 08/24/22 23:43 Dextrose 5% 1,000 Ml IVPB PRN PRN Hypoglycemia Protocol Ceftriaxone Sodium 2 gm in 100 mls @ 200 mls/hr 08/25/22 19:00 08/27/22 18:35 Rocephin 2 Gm/Ns 100 Ml IVPB Infused Q24H OSIEL Infusion Azithromycin 500 mg in 250 mls @ 250 mls/hr 08/25/22 19:00 08/27/22 18:02 Zithromax IVPB 250 mls/hr Q24H OSIEL Administration Insulin Aspart 3 - 6 units 08/25/22 08:00 08/27/22 16:57 Insulin Aspart (*Bkc) 100 Units/Ml SUB-Q 3 units TIDWM OSIEL Administration Protocol Insulin Glargine 20 units 08/26/22 09:00 08/27/22 08:01 Insulin Glargine (*Bkc) 100 Units/Ml SUB-Q 20 units DAILY OSIEL Administration Magnesium Hydroxide 30 ml 08/24/22 23:44 Magnesium Hydroxide Susp 30 Ml Udc PO DAILY PRN Constipation Ondansetron HCl 4 mg 08/24/22 23:44 Ondansetron Inj 4 Mg/2 Ml Vial IV PUSH Q6H PRN Nausea And Vomiting Pantoprazole Sodium 40 mg
[2022-08-28 06:44] LABS: Basophils Percent Auto 0.4 % (0.2-1.2); Eosinophils Absolute Auto 0.1 K/mm3 (0-0.3); Hematocrit 28.3 % (42.0-52.0); Hemoglobin 9.8 g/dL (14.0-18.0); Immature Granulocyte Absolute 0.08 K/mm3 (0.00-0.031); Immature Granulocyte Percent A 1.7 % (0-0.5); Immature Platelet Fraction Pct 3.7 % (0.9-11.2); Lymphocytes Absolute Auto 1.05 K/mm3 (0.9-3.2); Lymphocytes Percent Auto 22.8 % (18.3-44.2); Mean Corpuscular HGB Conc 34.6 g/dl (32-36); Mean Corpuscular Volume 92.5 fl (80-100); Mean Platelet Volume 11.2 fl (7.4-10.4); Monocytes Absolute Auto 0.4 K/mm3 (0.1-0.6); Neutrophils Percent Auto 64.1 % (45.5-73.1); Platelet Count Result 48 k/mm3 (150-375); Red Blood Count 3.06 M/mm3 (4.6-6.20); Red Cell Distribution Width 16.4 % (11.5-14.5); White Blood Count 4.6 K/mm3 (4.5-10.0)
[2022-08-28 06:47] LABS: Alanine Aminotransferase 34 U/L (6-50); Albumin Level 2.1 g/dL (3.5-5.1); Alkaline Phosphatase 255 U/L (38-126); Anion Gap 5 mmol/L (8-16); Aspartate Amino Transferase 60 U/L (17-59); Bilirubin,Total 0.8 mg/dL (0.2-1.3); Blood Urea Nitrogen 35 mg/dL (9-20); Calcium 7.6 mg/dL (8.4-10.2); Carbon Dioxide 18 mmol/L (22-30); Chloride 110 mmol/L (98-107); Estimated CRCL calculation 25 ml/min; Estimated Glomerular Filt Rate 36; Glucose 122 mg/dL (65-110); Magnesium 1.6 mg/dL (1.6-2.3); Potassium 3.3 mmol/L (3.4-5.0); Sodium 133 mmol/L (137-145)
[2022-08-28 07:39] LABS: Glucose Point of Care 135 mg/dl (65-105)
[2022-08-28 08:07] VITALS: PULSE 64
[2022-08-28] MEDS: PANTOPRAZOLE 40 MG TABLET PO (08:07)
[2022-08-28] MEDS: carvediloL 1.56 MG TABLET PO ×2 (08:07→13:40)
[2022-08-28] MEDS: FOLIC ACID 1 MG TABLET PO (08:07)
[2022-08-28] MEDS: ATORVASTATIN 20 MG TABLET PO (08:07)
[2022-08-28] MEDS: FERROUS SULFATE 324 MG TABLET PO (08:07)
[2022-08-28] MEDS: INSULIN GLARGINE (*BKC) 100 UNITS/ML 20 UNITS SUB-Q (08:09)
[2022-08-28] MEDS: POTASSIUM CHLORIDE 20 MEQ ER TABLET 40 MEQ PO (08:09)
[2022-08-28 09:45] VITALS: BMI 25.2
--- NOTE | 2022-08-28 10:09 | PCPTNOTE ---
On 08/28/22, the student, CRUZ Orozco, provided care and completed [facility] documentation on this patient. I have reviewed the student's documentation and agree with the findings.
[2022-08-28 11:36] LABS: Glucose Point of Care 198 mg/dl (65-105)
--- NOTE | 2022-08-28 11:55 | P.PNIM_ITS ---
Progress Note: A&P Assessment and Plan (1) Hyperglycemia due to diabetes mellitus: Code(s): E11.65 - Type 2 diabetes mellitus with hyperglycemia Status: Acute (2) Gross hematuria: Code(s): R31.0 - Gross hematuria Status: Inactive (3) Acute UTI (urinary tract infection): Code(s): N39.0 - Urinary tract infection, site not specified Status: Acute (4) Hypertension: Code(s): I10 - Essential (primary) hypertension Status: Chronic (5) Hyperlipidemia: Code(s): E78.5 - Hyperlipidemia, unspecified Status: Acute (6) Pneumonia: Code(s): J18.9 - Pneumonia, unspecified organism Status: Acute (7) Acute kidney injury superimposed on CKD: Code(s): N17.9 - Acute kidney failure, unspecified; N18.9 - Chronic kidney disease, unspecified Status: Acute (8) Gout: Code(s): M10.9 - Gout, unspecified Status: Acute (9) Thrombocytopenia: Code(s): D69.6 - Thrombocytopenia, unspecified Status: Acute Plan 08/25/2022:Patient presented with episodes of gross hematuria generalized weakness and hyperglycemia. History of cirrhosis with GI bleed with rectal versus hypertension hyperlipidemia BPH history of diabetes on oral hypoglycemic agent. Coronary artery disease status post stents in 2015 and 2018 history of kidney stones gout. ED workup revealed creatinine of 2.8 mild hyponatremia and blood sugar more than 500. Urinalysis positive for more than 75 RBC and more than 35 WBC. He was started on IV fluids and insulin. Anion gap was 12. Chest x-ray with right basilar airspace opacity consistent with atelectasis versus pneumonia. Admitted to ICU and followed up DKA protocol. He was started on Rocephin and azithromycin for pneumonia. IV fluid for BLESSING on CKD stage III. Creatinine baseline 1.5-1.7. Does have a history of interstitial lung disease. Has been transition to long-acting Lantus. 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 CT scan of the abdomen pelvis in February 2022 with normal urinary tracts noted. Likely hematuria due to UTI. On ceftriaxone. History of chronic thrombocytopenia due to underlying cirrhosis. Creatinine continues to improve. CK is normal. Renal ultrasound with no hydronephrosis. 08/26/2022: Patient presented with episodes of gross hematuria generalized weakness and hyperglycemia. 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 Coronary artery disease status post stents in 2016 and 2018 history of kidney stones gout. ED workup revealed creatinine of 2.8 mild hyponatremia and blood sugar more than 500. Urinalysis positive for more than 75 RBC and more than 35 WBC. He was started on IV fluids and insulin. Anion gap was 12. Chest x-ray with right basilar airspace opacity consistent with atelectasis versus pneumonia. Admitted to ICU and followed up DKA protocol. He was started on Rocephin and azithromycin for pneumonia. IV fluid for BLESSING on CKD stage III. Creatinine baseline 1.5-1.7. Does have a history of interstitial lung disease. Has been transition to long-acting Lantus. 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 CT scan of the abdomen pelvis in February 2022 with normal urinary tracts noted. Likely hematuria due to UTI. On ceftriaxone. History of chronic thrombocytopenia due to underlying cirrhosis. Creatinine continues to improve. CK is normal. Renal ultrasound with no hydronephrosis. Hematuria persist. Urology on board. Labs pending from this a.m. 08/27/2022: Patient presented with
[2022-08-28 13:40] VITALS: PULSE 72
[2022-08-28 13:48] VITALS: BP 107/77; PULSE 109; RESP 18; TEMP 36.8; O2SAT 98
--- NOTE | 2022-08-28 14:11 | PM.DS ---
DS: Admitting Diagnosis Discharge Date 08/28/2022 Admitting Diagnosis Hematuria weakness DS: Discharge Diagnosis Discharge Diagnosis (1) Hyperglycemia due to diabetes mellitus: Code(s): E11.65 - Type 2 diabetes mellitus with hyperglycemia Status: Acute (2) Gross hematuria: Code(s): R31.0 - Gross hematuria Status: Inactive (3) Acute UTI (urinary tract infection): Code(s): N39.0 - Urinary tract infection, site not specified Status: Acute (4) Hypertension: Code(s): I10 - Essential (primary) hypertension Status: Chronic (5) Hyperlipidemia: Code(s): E78.5 - Hyperlipidemia, unspecified Status: Acute (6) Pneumonia: Code(s): J18.9 - Pneumonia, unspecified organism Status: Acute (7) Acute kidney injury superimposed on CKD: Code(s): N17.9 - Acute kidney failure, unspecified; N18.9 - Chronic kidney disease, unspecified Status: Acute (8) Gout: Code(s): M10.9 - Gout, unspecified Status: Acute (9) Thrombocytopenia: Code(s): D69.6 - Thrombocytopenia, unspecified Status: Acute DS: Summary Hospital Course Hospital Course: Patient presented with episodes of gross hematuria generalized weakness and hyperglycemia.? History of cirrhosis with GI bleed with rectal varices hypertension hyperlipidemia BPH history of diabetes on oral hypoglycemic agent.? Coronary artery disease status post stents in 2016 and 2018 history of kidney stones gout.? ED workup revealed creatinine of 2.8 mild hyponatremia and blood sugar more than 500.? Urinalysis positive for more than 75 RBC and more than 35 WBC.? He was started on IV fluids and insulin.? Anion gap was 12.? Chest x-ray with right basilar airspace opacity consistent with atelectasis versus pneumonia.? Admitted to ICU and followed up DKA protocol.? He was started on Rocephin and azithromycin for pneumonia.? IV fluid for BLESSING on CKD stage III.? Creatinine baseline 1.5-1.7.? Does have a history of interstitial lung disease.? Has been transition to long-acting Lantus.? 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 CT scan of the abdomen pelvis in February 2022 with normal urinary tracts noted.? Likely hematuria due to UTI.? On ceftriaxone.? Which will be switched to oral to complete 7 days course.? Finish the azithromycin today.? history of chronic thrombocytopenia due to underlying cirrhosis.? Creatinine continues to improve.? CK is normal.? Renal ultrasound with no hydronephrosis.? Hematuria cleared.? Urology on board.? Continue Nelson catheter per Urology recommendation at discharge and follow-up with urology as an outpatient basis.? Labs stable to improved.? PT OT recommendation to rehab. Continue current insulin 20 units of Lantus and sliding scale NovoLog. Discharge to rehabilitation Time Spent with Patient Time attestation: Total time spent providing and/or coordinating discharge services: Exam Narrative: General: Elderly gentleman in no acute distress HEENT:? Pupils equal and reactive, sclera is clear Neck:? Supple Respiratory:? Clear to auscultation bilaterally, decreased at bases bilaterally, adequate air entry Cardiac:? S1-S2 was normal, regular rate and rhythm Abdomen:? Soft, nontender, nondistended, normoactive bowel sounds Extremities:? Trace edema, palpable pedal pulses Neuro:? Patient is awake, alert, answers to questions appropriately and follows simple commands Skin:? Warm and dry, no lesions noted Psych:? Normal mentation and affect DS: Data Data Completed and Pending Labs on day of discharge: Labs from last 24 hours 08/28/22 08/28/22 08/28/22 11:32 07:30 06:15 WBC 4.6 RBC 3.06 L Hgb 9.8 L Hct 28.3 L MCV 92.5 MCH 32.0 MCHC 34.6 RDW 16.4 H Plt Count 48 L MPV 11.2 H Immature Gran % (Auto) 1.7 H Neut % (Auto) 64.1 Lymph % (Auto) 22.8 Yates % (Auto) 8.0 Eos % (Auto) 3.0 Baso % (Auto)
== END 2022-08-28 15:07 | disposition swing bed (61) | DRG 637 ==
LOC: ANHICU 08-25 14:12 → ANH3MEDSUR 08-25 15:22
PROVIDERS: Internal Medicine; Admitting Provider Internal Medicine; PCP Internal Medicine; Visit Provider Internal Medicine
DX: E13.10 Other specified diabetes mellitus with ketoacidosis without coma (principal); J18.9 Pneumonia, unspecified organism; N17.9 Acute kidney failure, unspecified; N39.0 Urinary tract infection, site not specified; I12.9 Hypertensive chronic kidney disease with stage 1 through stage 4 chronic kidney disease, or unspecified chronic kidney disease; N18.30 Chronic kidney disease, stage 3 unspecified; E13.22 Other specified diabetes mellitus with diabetic chronic kidney disease; E13.65 Other specified diabetes mellitus with hyperglycemia; I25.10 Atherosclerotic heart disease of native coronary artery without angina pectoris; E78.5 Hyperlipidemia, unspecified; K74.60 Unspecified cirrhosis of liver; D69.6 Thrombocytopenia, unspecified; N40.0 Benign prostatic hyperplasia without lower urinary tract symptoms; M10.9 Gout, unspecified; M48.061 Spinal stenosis, lumbar region without neurogenic claudication; Z95.5 Presence of coronary angioplasty implant and graft; Z79.4 Long term (current) use of insulin; Z87.442 Personal history of urinary calculi
CPT/HCPCS: 36415; 76775; 80048; 80053; 82550; 82607; 82746; 82948; 83036; 83540; 83550; 83735; 84100; 85025; 85055; 86140; 97110; 97116; 97161; A9270; C9113; J0456; J0696; J1815; J3475; J3480; J7030; J7040

== ENCOUNTER 2022-08-28 15:54 | Inpatient (IN) | payer MEDICARE, SELFPAY ==
[2022-08-28 16:00] VITALS: BP 123/73; PULSE 81; RESP 18; TEMP 36.1; O2SAT 99
--- NOTE | 2022-08-28 16:00 | PC.NURSE ---
Patient arrived to hospital via private vehicle, accompanied by his . Patient transported in w/c to unit room 205 by report writer and accompanied by his . Patient has a cell phone and pajama pants with white sleeveless T shirt. to bring additional clothing. Patient educated on hospital policies, use of call light and bed controls, use of rapid response system, television controls and standard infection control precautions. Patient voices understanding.
[2022-08-28 16:27] VITALS: BMI 26.5
[2022-08-28 16:48] LABS: Glucose Point of Care 275 mg/dl (65-105)
[2022-08-28] MEDS: INSULIN HUMAN LISPRO (*BKC) 1,000 UNITS/10 ML VIAL 4 UNITS SUB-Q (18:28)
[2022-08-28 19:15] VITALS: PULSE 81
[2022-08-28] MEDS: carvediloL 1.56 MG TABLET PO (19:15)
[2022-08-28] MEDS: AMOXICILLIN/CLAVULANATE K 500-125 MG TAB 1 TABLET PO (20:31)
[2022-08-28 20:39] LABS: Glucose Point of Care 248 mg/dl (65-105)
[2022-08-28 23:51] VITALS: BP 156/90; PULSE 80; RESP 18; TEMP 35.9; O2SAT 100
[2022-08-29] VITALS (7 sets, daily range): BP systolic 112–117; BP diastolic 58–78; PULSE 71–88; RESP 14–20; TEMP 36.1–36.7; O2SAT 98–100
[2022-08-29 07:33] LABS: Glucose Point of Care 169 mg/dl (65-105)
[2022-08-29] MEDS: AMOXICILLIN/CLAVULANATE K 500-125 MG TAB 1 TABLET PO ×2 (08:24→20:54)
[2022-08-29] MEDS: PANTOPRAZOLE 40 MG TABLET PO (08:24)
[2022-08-29] MEDS: ATORVASTATIN 10 MG TABLET 20 MG PO (08:24)
[2022-08-29] MEDS: carvediloL 1.56 MG TABLET PO ×3 (08:25→16:57)
[2022-08-29] MEDS: allopurinoL 100 MG TABLET PO (08:25)
[2022-08-29] MEDS: INSULIN GLARGINE (*BKC) 1,000 UNITS/10 ML VIAL 20 UNITS SUB-Q (08:27)
[2022-08-29] MEDS: FOLIC ACID 1 MG TABLET PO (08:29)
[2022-08-29] MEDS: FERROUS SULFATE 324 MG TABLET PO (09:39)
[2022-08-29] MEDS: TAMSULOSIN HCL 0.4 MG CAPSULE 0.8 MG PO (09:39)
--- NOTE | 2022-08-29 10:48 | PM.IMHP ---
H&P: HPI History of Present Illness Date/Time: 08/29/22 0800 Chief Complaint: Generalized weakness Narrative: Mr. Ruggiero is an 87-year-old gentleman who presented to an outside hospital with complaints of weakness, confusion, and hematuria. Patient was initially brought to the emergency room at this facility via EMS for gross hematuria and weakness. Upon initial evaluation by EMS patient was noted have a blood glucose level of greater than 400. In the emergency room for patient was started on insulin drip for DKA and started on IV antibiotics. Patient was then transferred to an outside hospital that has an ICU. Upon initial evaluation at outside hospital patient was alert oriented times 1-2. During hospitalization patient was treated for his elevated blood glucose initially with IV insulin that was then transition to subcutaneous insulin. Patient was noted to have an initial anion gap of 12 with a bicarbonate level of 20. Patient was also noted to have a possible pneumonia was placed on Rocephin and Zithromax. For patient's gross hematuria urology was consulted and it was noted that patient's gross hematuria was likely due to hemorrhagic cystitis secondary to the fact that patient's bleeding had significantly improved only hours after receiving a dose of IV antibiotics. Urology also noted that patient had a noncontrast CT scan of the abdomen and pelvis in February of 2022 that showed the upper urinary tract pathology and it was not thought that there was any bleeding from the upper urinary tract. A Nelson catheter had been placed while patient was in the emergency room. Urology stated that patient's hematuria had resolved during outside hospitalization and that patient was to be discharged with indwelling Nelson catheter in follow-up with urology as an outpatient to determine if an outpatient cystoscopy would be needed. It was also noted patient had thrombocytopenia throughout hospitalization, which is a chronic issue for the patient that was noted to have begun in 2019 and per outside notes was secondary to underlying cirrhosis. Patient was also noted to have an acute kidney injury on chronic kidney disease with a baseline creatinine of 1.5-1.8. Initially patient's creatinine was noted to be 2.8 and upon discharge from outside facility patient's creatinine is 1.8. Patient was also noted to have a potassium of 3.3 on 08/28/2022, and is unclear patient did receive oral supplementation. During outside stated patient was transitioned from IV insulin to subcutaneous lungs full in and patient has been doing well on current regimen of 20 units of Lantus with sliding scale NovoLog. PT/OT did evaluate patient outside hospital and recommended the patient be discharged to swing bed for rehabilitation. Patient's urine culture showed no growth to date on 08/25/2022 and it was finalized as no growth. Patient was started on Rocephin and azithromycin at outside hospital for pneumonia and patient is to finish a full 7 day course of Augmentin which is to and on 08/30/2022. At this point time patient states he feels fully improved, but is very weak and tired. Patient states he did not sleep very well last night secondary to his left great toe having a toenail that was cutting and his other toe. Patient denies any chest pain, shortness of breath, syncopal or near syncopal episodes. Patient states he is just extremely tired and feeling weak. Patient denies any pain at Nelson catheter site. Patient states he does not believe he has had any further hematuria. Review of Systems Review of Systems: A 12 point review of systems was completed with patient all pertinent positive and negative per HPI the remainder are unremarkable. [facility] Past Medical History Medical History (Updated 08/29/22 @ 11:50 by Marie Moore APRN) Acute UTI (urinary tract infection) BPH (benign prostatic hyperplasia) CAD (coronary artery disease) Dehydration, mild Diabetes 1.5, managed a
[2022-08-29 11:44] LABS: Glucose Point of Care 248 mg/dl (65-105)
[2022-08-29] MEDS: INSULIN HUMAN LISPRO (*BKC) 1,000 UNITS/10 ML VIAL SUB-Q ×2 (12:33→16:59)
[2022-08-29 17:01] LABS: Glucose Point of Care 202 mg/dl (65-105)
[2022-08-29 20:59] LABS: Glucose Point of Care 211 mg/dl (65-105)
--- NOTE | 2022-08-29 23:37 | PC.NURSE ---
Pt ambulated to BR c SBA gait belt and walker. Pt had small amt loose diarrhea stool. Pt assisted c cleaning. Pt noted SOB c exertion and c/o feeling weak when up moving around.Noted dark yo colored urine in soler cath. Pt assisted back to bed and positions self c pillows for comfort. Call grayson at pt side and reinforced need to call for assist if getting up..Pt verbalized understanding.
[2022-08-30] VITALS (7 sets, daily range): BP systolic 95–114; BP diastolic 60–68; PULSE 71–77; RESP 16–18; TEMP 36.1–36.3; O2SAT 97–100
[2022-08-30 05:24] LABS: Hematocrit 26.4 % (37.0-46.0); Hemoglobin 9.2 g/dL (12.4-15.3); Immature Platelet Fraction Pct 2.2 % (1.0-7.0); Mean Corpuscular HGB Conc 34.8 g/dL (32.0-36.0); Mean Corpuscular Hemoglobin 32.2 pg (27.0-31.0); Mean Corpuscular Volume 92.3 fL (78.0-102.0); Mean Platelet Volume 11.5 fl (8.7-11.0); Platelet Count Result 51 K/mm3 (150-420); Red Blood Count 2.86 M/mm3 (4.70-6.10); Red Cell Distribution Width 16.3 % (11.6-14.4); White Blood Count 3.9 K/mm3 (4.8-10.8)
[2022-08-30 05:33] LABS: Anion Gap 11 mmol/L (8-16); Blood Urea Nitrogen 38 mg/dL (7-18); Calcium 7.7 mg/dL (8.5-10.1); Carbon Dioxide 19 mmol/L (21-32); Chloride 104 mmol/L (98-108); Estimated CRCL calculation 23 ml/min; Estimated Glomerular Filt Rate 33; Glucose 185 mg/dL (70-99); Osmolality Calculated 292 mOsm/kg (285-295); Sodium 134 mmol/L (136-145)
[2022-08-30 05:42] LABS: Band Neutrophils Percent 0 % (0-6); Basophils Percent Manual 0 % (0-1); Eosinophils Absolute Manual 0.03 K/mm3 (0.02-0.5); Eosinophils Percent Manual 1 % (1-6); Lymphocytes Absolute Manual 0.78 K/mm3 (1.1-4.5); Lymphocytes Percent Manual 20 % (18-44); Monocytes Absolute Manual 0.15 K/mm3 (0.1-0.90); Monocytes Percent Manual 4 % (3-9); Neutrophils Absolute Manual 2.92 K/mm3 (1.3-6.7); Neutrophils Percent Manual 75 % (46-73); Platelet Estimate Decreased (Adequate); Total Cells Counted 100
[2022-08-30 07:32] LABS: Glucose Point of Care 172 mg/dl (65-105)
[2022-08-30] MEDS: FERROUS SULFATE 324 MG TABLET PO (08:17)
[2022-08-30] MEDS: TAMSULOSIN HCL 0.4 MG CAPSULE 0.8 MG PO (08:18)
[2022-08-30] MEDS: PANTOPRAZOLE 40 MG TABLET PO (08:18)
[2022-08-30] MEDS: AMOXICILLIN/CLAVULANATE K 500-125 MG TAB 1 TABLET PO ×2 (08:18→20:13)
[2022-08-30] MEDS: FOLIC ACID 1 MG TABLET PO (08:18)
[2022-08-30] MEDS: INSULIN GLARGINE (*BKC) 1,000 UNITS/10 ML VIAL 20 UNITS SUB-Q (08:19)
[2022-08-30] MEDS: ATORVASTATIN 10 MG TABLET 20 MG PO (08:20)
[2022-08-30] MEDS: allopurinoL 100 MG TABLET PO (08:20)
[2022-08-30] MEDS: carvediloL 1.56 MG TABLET PO ×3 (08:21→16:57)
--- NOTE | 2022-08-30 09:46 | PC.NURSE ---
Patient c/o pain to 1st and 2nd toes on R foot, due to arthritic positioning, and nails needing clipped and filed. CLOTH STOCK SORTER made aware, bandaids applied for protection. Podiatry consult is being worked out.
--- NOTE | 2022-08-30 10:56 | PC.NURSE ---
cooperative education coordinator left message with luggage liner for evaluation on patient.
[2022-08-30] MEDS: INSULIN HUMAN LISPRO (*BKC) 1,000 UNITS/10 ML VIAL SUB-Q ×2 (11:33→16:57)
[2022-08-30 11:34] LABS: Glucose Point of Care 266 mg/dl (65-105)
--- NOTE | 2022-08-30 12:14 | PC.NURSE ---
Patient tried to refuse therapy due to pain in his toes. Copy Lathe Tender and therapist explained that patient would need to participate in therapy, or his insurance would refuse to cover it. Patient participated somewhat.
[2022-08-30 16:41] LABS: Glucose Point of Care 243 mg/dl (65-105)
[2022-08-30 20:19] LABS: Glucose Point of Care 223 mg/dl (65-105)
--- NOTE | 2022-08-31 06:28 | PC.NURSE ---
On 08/31/22, the SERVICE MEMBER, [Yvonne Wilcox ], provided care and completed [facility] documentation on this patient. I have reviewed the SERVICE MEMBER's documentation and agree with the findings.
[2022-08-31 07:55] LABS: Glucose Point of Care 141 mg/dl (65-105)
[2022-08-31 08:00] VITALS: BP 122/71; PULSE 78; RESP 17; TEMP 36.6; O2SAT 99
[2022-08-31 09:25] VITALS: PULSE 84
[2022-08-31] MEDS: PANTOPRAZOLE 40 MG TABLET PO (09:25)
[2022-08-31] MEDS: AMOXICILLIN/CLAVULANATE K 500-125 MG TAB 1 TABLET PO (09:25)
[2022-08-31] MEDS: carvediloL 1.56 MG TABLET PO ×3 (09:25→17:28)
[2022-08-31] MEDS: allopurinoL 100 MG TABLET PO (09:25)
[2022-08-31] MEDS: TAMSULOSIN HCL 0.4 MG CAPSULE 0.8 MG PO (09:25)
[2022-08-31] MEDS: ATORVASTATIN 10 MG TABLET 20 MG PO (09:25)
[2022-08-31] MEDS: FOLIC ACID 1 MG TABLET PO (09:25)
[2022-08-31] MEDS: FERROUS SULFATE 324 MG TABLET PO (09:26)
[2022-08-31] MEDS: INSULIN GLARGINE (*BKC) 1,000 UNITS/10 ML VIAL 20 UNITS SUB-Q (09:26)
--- NOTE | 2022-08-31 11:30 | PC.NURSE ---
Nurse practitioner updated on daughters concerns regarding kidney function, practitioner to call and speak with daughter regarding her concerns
[2022-08-31 11:34] LABS: Glucose Point of Care 194 mg/dl (65-105)
[2022-08-31 13:46] VITALS: PULSE 88
--- NOTE | 2022-08-31 14:17 | PC.NURSE ---
Catheter bag changed. Awaiting fresh urine to send to lab.
[2022-08-31 15:54] LABS: Appearance Urine Cloudy (Clear); Bilirubin Urine Negative (Negative); Blood Urine 3+ (Negative); Color Urine Yellow (Yellow); Glucose Urine UA Negative (Negative); Ketones Urine Negative (Negative); Leukocyte Esterase Ur 3+ (Negative); Nitrate Urine Negative (Negative); Protein Urine 2+ (Negative); Urobilinogen Urine 0.2 mg/dL (0.2-1.0)
[2022-08-31 16:00] VITALS: BP 106/67; PULSE 75; RESP 16; TEMP 36.1; O2SAT 100
[2022-08-31 16:00] LABS: Add Urine Microscopic? YES; RBC Urine None seen /hpf (0-2); Squamous Epithelial Cell Urine Rare /hpf (Few); WBC Urine >75 /hpf (0-3)
[2022-08-31 16:01] LABS: Bacteria Urine 2+ /hpf; Budding Yeast Urine Present /hpf
[2022-08-31 16:58] LABS: Glucose Point of Care 180 mg/dl (65-105)
[2022-08-31 17:28] VITALS: PULSE 76
[2022-08-31] MEDS: MELATONIN 5 MG TABLET PO (20:24)
[2022-08-31] MEDS: SULFAMETHOXAZOLE/TRIMETHOPRIM 800/160 MG DS TABLET 0.5 TAB PO (20:25)
[2022-08-31 20:28] LABS: Glucose Point of Care 222 mg/dl (65-105)
[2022-08-31 23:51] VITALS: BP 111/62; PULSE 70; RESP 19; TEMP 36.4; O2SAT 98
[2022-09-01 07:51] LABS: Glucose Point of Care 161 mg/dl (65-105)
[2022-09-01 08:00] VITALS: BP 130/68; PULSE 73; RESP 18; TEMP 35.9; O2SAT 98
[2022-09-01] MEDS: allopurinoL 100 MG TABLET PO (10:15)
[2022-09-01] MEDS: ATORVASTATIN 10 MG TABLET 20 MG PO (10:15)
[2022-09-01 10:16] VITALS: PULSE 74
[2022-09-01] MEDS: SULFAMETHOXAZOLE/TRIMETHOPRIM 800/160 MG DS TABLET 0.5 TAB PO ×2 (10:16→20:36)
[2022-09-01] MEDS: ASPIRIN 81 MG ENTERIC TABLET PO (10:16)
[2022-09-01] MEDS: TAMSULOSIN HCL 0.4 MG CAPSULE 0.8 MG PO (10:16)
[2022-09-01] MEDS: EMPAGLIFLOZIN 10 MG TABLET PO (10:16)
[2022-09-01] MEDS: FOLIC ACID 1 MG TABLET PO (10:16)
[2022-09-01] MEDS: PANTOPRAZOLE 40 MG TABLET PO (10:16)
[2022-09-01] MEDS: FERROUS SULFATE 324 MG TABLET PO (10:16)
[2022-09-01] MEDS: carvediloL 1.56 MG TABLET PO ×3 (10:16→17:47)
[2022-09-01] MEDS: INSULIN GLARGINE (*BKC) 1,000 UNITS/10 ML VIAL 20 UNITS SUB-Q (10:21)
[2022-09-01 11:33] LABS: Glucose Point of Care 207 mg/dl (65-105)
[2022-09-01 13:10] VITALS: PULSE 84
[2022-09-01 16:00] VITALS: BP 120/72; PULSE 72; RESP 18; TEMP 36.6; O2SAT 99
[2022-09-01 17:04] LABS: Glucose Point of Care 187 mg/dl (65-105)
[2022-09-01 17:47] VITALS: PULSE 78
[2022-09-01] MEDS: SACCHAROMYCES BOULARDII 250 MG CAPSULE PO (17:47)
[2022-09-01 20:00] VITALS: PULSE 75; RESP 20; O2SAT 97
[2022-09-01] MEDS: MELATONIN 5 MG TABLET PO (20:36)
[2022-09-01 20:37] LABS: Glucose Point of Care 216 mg/dl (65-105)
[2022-09-02] VITALS (7 sets, daily range): BP systolic 98–109; BP diastolic 60–92; PULSE 73–78; RESP 16–18; TEMP 35.7–36.4; O2SAT 96–98
[2022-09-02 07:51] LABS: Glucose Point of Care 103 mg/dl (65-105)
[2022-09-02] MEDS: FERROUS SULFATE 324 MG TABLET PO (08:44)
[2022-09-02] MEDS: PANTOPRAZOLE 40 MG TABLET PO (08:44)
[2022-09-02] MEDS: carvediloL 1.56 MG TABLET PO ×3 (08:44→17:38)
[2022-09-02] MEDS: EMPAGLIFLOZIN 10 MG TABLET PO (08:44)
[2022-09-02] MEDS: SACCHAROMYCES BOULARDII 250 MG CAPSULE PO ×2 (08:44→17:39)
[2022-09-02] MEDS: SULFAMETHOXAZOLE/TRIMETHOPRIM 800/160 MG DS TABLET 0.5 TAB PO ×2 (08:44→20:21)
[2022-09-02] MEDS: FOLIC ACID 1 MG TABLET PO (08:45)
[2022-09-02] MEDS: allopurinoL 100 MG TABLET PO (08:45)
[2022-09-02] MEDS: ASPIRIN 81 MG ENTERIC TABLET PO (08:45)
[2022-09-02] MEDS: ATORVASTATIN 10 MG TABLET 20 MG PO (08:45)
[2022-09-02] MEDS: TAMSULOSIN HCL 0.4 MG CAPSULE 0.8 MG PO (08:45)
[2022-09-02] MEDS: INSULIN GLARGINE (*BKC) 1,000 UNITS/10 ML VIAL 20 UNITS SUB-Q (09:05)
[2022-09-02] MEDS: FLUCONAZOLE 150 MG TABLET PO (10:02)
[2022-09-02 12:02] LABS: Glucose Point of Care 199 mg/dl (65-105)
--- NOTE | 2022-09-02 16:59 | PC.NURSE ---
Teaching done with patient's home glucometer. BS 142. More teaching needed with personal glucometer and lancets provided with meter
[2022-09-02 20:22] LABS: Glucose Point of Care 153 mg/dl (65-105)
[2022-09-02] MEDS: MELATONIN 5 MG TABLET PO (20:22)
[2022-09-03] VITALS (8 sets, daily range): BP systolic 96–113; BP diastolic 54–61; PULSE 66–78; RESP 16–18; TEMP 35.9–36.3; O2SAT 96–100
--- NOTE | 2022-09-03 05:38 | PC.NURSE ---
On 09/03/22, the SLEEVE TAILOR, [Yvonne Wilcox ], provided care and completed [facility] documentation on this patient. I have reviewed the SLEEVE TAILOR's documentation and agree with the findings.
[2022-09-03] MEDS: TAMSULOSIN HCL 0.4 MG CAPSULE 0.8 MG PO (08:23)
[2022-09-03] MEDS: PANTOPRAZOLE 40 MG TABLET PO (08:24)
[2022-09-03] MEDS: carvediloL 1.56 MG TABLET PO ×3 (08:24→16:49)
[2022-09-03] MEDS: FERROUS SULFATE 324 MG TABLET PO (08:24)
[2022-09-03] MEDS: FOLIC ACID 1 MG TABLET PO (08:25)
[2022-09-03] MEDS: allopurinoL 100 MG TABLET PO (08:25)
[2022-09-03] MEDS: ATORVASTATIN 10 MG TABLET 20 MG PO (08:25)
[2022-09-03] MEDS: EMPAGLIFLOZIN 10 MG TABLET PO (08:25)
[2022-09-03] MEDS: SULFAMETHOXAZOLE/TRIMETHOPRIM 800/160 MG DS TABLET 0.5 TAB PO ×2 (08:26→20:36)
[2022-09-03] MEDS: INSULIN GLARGINE (*BKC) 1,000 UNITS/10 ML VIAL 20 UNITS SUB-Q (08:31)
[2022-09-03] MEDS: ASPIRIN 81 MG ENTERIC TABLET PO (08:40)
[2022-09-03] MEDS: SACCHAROMYCES BOULARDII 250 MG CAPSULE PO ×2 (08:53→16:50)
--- NOTE | 2022-09-03 10:24 | PC.NURSE ---
Patient complaining of 3 sharp pains to right chest VS within normal limits. PUMPER GAUGER aware
--- NOTE | 2022-09-03 12:08 | PC.NURSE ---
called daughter to request that she also receive training on catheter care and use of glucometer. she asked to come in tomorrow before discharge to review
--- NOTE | 2022-09-03 15:53 | PC.NURSE ---
spoke with pt poa (son and daughter) about possible need of comfort drugs morphine/ativan, family would like them available if the patient needs them, they are aware of pt declining bp and cognition
--- NOTE | 2022-09-03 16:59 | PC.NURSE ---
sugar checked using pt home glucometer was 164
[2022-09-03] MEDS: MELATONIN 5 MG TABLET PO (20:36)
--- NOTE | 2022-09-03 22:56 | PC.NURSE ---
pt ac done with home glucometer, glucose of 109
--- NOTE | 2022-09-04 06:19 | PC.NURSE ---
On 09/04/22, the SPECIAL DELIVERY WORKER, [Sarita Hodge ], provided care and completed [facility] documentation on this patient. I have reviewed the SPECIAL DELIVERY WORKER's documentation and agree with the findings.
--- NOTE | 2022-09-04 07:30 | PC.NURSE ---
Patient home glucometer used for reading, BS 71. WIRE WRAPPING MACHINE OPERATOR notified and new order received for decreased dose of Lantus
[2022-09-04 08:00] VITALS: BP 120/65; PULSE 68; RESP 14; TEMP 36.1; O2SAT 99
[2022-09-04 08:41] VITALS: PULSE 68
[2022-09-04] MEDS: SACCHAROMYCES BOULARDII 250 MG CAPSULE PO (08:41)
[2022-09-04] MEDS: ASPIRIN 81 MG ENTERIC TABLET PO (08:41)
[2022-09-04] MEDS: carvediloL 1.56 MG TABLET PO ×2 (08:41→12:12)
[2022-09-04] MEDS: EMPAGLIFLOZIN 10 MG TABLET PO (08:42)
[2022-09-04] MEDS: TAMSULOSIN HCL 0.4 MG CAPSULE 0.8 MG PO (08:42)
[2022-09-04] MEDS: FERROUS SULFATE 324 MG TABLET PO (08:43)
[2022-09-04] MEDS: ATORVASTATIN 10 MG TABLET 20 MG PO (08:43)
[2022-09-04] MEDS: PANTOPRAZOLE 40 MG TABLET PO (08:45)
[2022-09-04] MEDS: allopurinoL 100 MG TABLET PO (08:45)
[2022-09-04] MEDS: SULFAMETHOXAZOLE/TRIMETHOPRIM 800/160 MG DS TABLET 0.5 TAB PO (08:46)
[2022-09-04] MEDS: FOLIC ACID 1 MG TABLET PO (08:46)
[2022-09-04] MEDS: FLUCONAZOLE 150 MG TABLET PO (09:33)
[2022-09-04] MEDS: INSULIN GLARGINE (*BKC) 1,000 UNITS/10 ML VIAL 15 UNITS SUB-Q (09:34)
[2022-09-04 12:12] VITALS: PULSE 74
--- NOTE | 2022-09-04 12:57 | PM.DS ---
DS: Admitting Diagnosis Discharge Date 09/04/2022 Admitting Diagnosis Generalized weakness DS: Discharge Diagnosis Discharge Diagnosis (1) Generalized weakness: Code(s): R53.1 - Weakness Status: Acute (2) Hematuria: Code(s): R31.9 - Hematuria, unspecified Status: Acute (3) UTI (urinary tract infection): Code(s): N39.0 - Urinary tract infection, site not specified Status: Acute (4) Pneumonia: Code(s): J18.9 - Pneumonia, unspecified organism Status: Acute (5) Hyperglycemia due to diabetes mellitus: Code(s): E11.65 - Type 2 diabetes mellitus with hyperglycemia Status: Acute DS: Summary Hospital Course Reason for hospitalization: Generalized weakness for swing bed admission. Hospital Course: Mr. Ruggiero is an 87-year-old gentleman who presented to [facility] for swing bed and strengthening. Patient had been hospitalized at [facility] for hyperglycemia, pneumonia, and gross hematuria. Upon discharge from [facility] patient was admitted to this establishment for physical therapy and occupational therapy in his swing bed. Patient has done extremely well and has been strengthening. During hospitalization patient's blood glucose has been monitored and patient was started on Jardiance and his Lantus insulin dose was able to be decreased. Patient has been taught during hospitalization had a monitor his blood glucose levels and give himself insulin. Patient was complaining of an ingrown toenail and a podiatry appointment has been made for patient to be seen on 09/07/2022. Patient received a full 7 day course of antibiotics for his pneumonia. Patient's urine culture did not show any bacterial growth, but did show growth of Chely albicans. Patient did receive 2 doses of oral Diflucan. Patient has had no further hematuria and when he did have a urinalysis performed that showed no RBCs. Patient is to have Nelson catheter in place and he is to follow up with Urology and will be decided if patient needs to have cystoscopy performed. Patient was noted to have acute kidney injury on chronic kidney disease at [facility] and when repeat laboratories were performed at this facility patient's creatinine was at baseline of 1.9. At this point time patient is doing very well and is ready for discharge home and he will have outpatient physical therapy. Patient will be discharged with Nelson catheter intact he will need to follow up with Urology at his already scheduled appointment. Patient is being discharged in stable and significantly improved condition. Status at Discharge Cognitive/behavioral status at discharge: Patient is cooperative and in stable condition. Time Spent with Patient Time attestation: Total time spent providing and/or coordinating discharge services: 35 minutes Exam Narrative: Constitutional: Patient is a thin-appearing 87-year-old gentleman who is in no acute distress. Patient is alert and oriented x3 HEENT: Moist mucous membranes. No scleral icterus. No lymphadenopathy. Neck: No carotid bruits noted no JVD noted Lungs: Lung sounds are clear to auscultation bilaterally. No accessory muscle use. No rhonchi, rales, or wheezes noted. Cardiovascular: Apical pulse is regular rate and rhythm. S1-S2 noted, no S3 or S4 noted. No gallops, murmurs, or rubs noted. Abdomen: Soft, round, and nontender. No palpable masses. Extremities: No edema. Nontender. Skin: No rashes or lesions. Warm and dry. Skin is intact. Neurological: No focal neurological deficits. Cranial nerves II-XII grossly intact. Psychiatric: Cooperative, appropriate mood, and affect Discharge Plan Discharge Attending physician on discharge: Olvin Briggs Discharging Clinician: Marie Moore Anticipated Discharge Date/Time: 09/04/22 13:00 Patient Disposition: Home, Self-Care Activity: as tolerated Diet: heart healthy Discharge Instructions:
--- NOTE | 2022-09-04 14:00 | PC.NURSE ---
Patient discharged at 1445 Taken to private vehicle by wheelchair. Transferred self to vehicle. Doctor appointments with urologist and store stock associate reviewed. Instructed to make follow up appointment with Dr. Henriquez's office. final teaching given to family and patient regarding glucometer use and soler care given. instructions for insulin given
--- NOTE | 2022-09-05 12:20 | PC.NURSE ---
Pt states he received and understood the discharge instructions. Pt also states it was really good there .
== END 2022-09-04 13:45 | disposition home or self-care (01) | DRG 947 ==
PROVIDERS: Nurse Practitioner Adult Health; Admitting Provider Internal Medicine; PCP Internal Medicine; Visit Provider Internal Medicine
DX: R53.1 Weakness (principal); J18.9 Pneumonia, unspecified organism; B37.49 Other urogenital candidiasis; D69.6 Thrombocytopenia, unspecified; N18.9 Chronic kidney disease, unspecified; I12.9 Hypertensive chronic kidney disease with stage 1 through stage 4 chronic kidney disease, or unspecified chronic kidney disease; E13.22 Other specified diabetes mellitus with diabetic chronic kidney disease; E87.6 Hypokalemia; E78.5 Hyperlipidemia, unspecified; I25.10 Atherosclerotic heart disease of native coronary artery without angina pectoris; N40.0 Benign prostatic hyperplasia without lower urinary tract symptoms; K74.60 Unspecified cirrhosis of liver; M10.9 Gout, unspecified
CPT/HCPCS: 36415; 80048; 81001; 82948; 85025; 85055; 86337; 86341; 87077; 87086; 87088; 97110; 97161; 97165; 97530; A9270; J1815

== ENCOUNTER 2022-09-11 12:13 | Outpatient (CLI) | payer MEDICARE, SELFPAY ==
[2022-09-11 12:32] LABS: Bilirubin Urine Negative (Negative); Blood Urine 3+ (Negative); Glucose Urine UA Trace (Negative); Hematocrit 34.4 % (37.0-46.0); Hemoglobin 11.1 g/dL (12.4-15.3); Immature Platelet Fraction Pct 1.8 % (1.0-7.0); Ketones Urine Negative (Negative); Leukocyte Esterase Ur 3+ (Negative); Mean Corpuscular HGB Conc 32.3 g/dL (32.0-36.0); Mean Corpuscular Volume 99.1 fL (78.0-102.0); Nitrate Urine Negative (Negative); Platelet Count Result 100 K/mm3 (150-420); Protein Urine 2+ (Negative); Red Blood Count 3.47 M/mm3 (4.70-6.10); Red Cell Distribution Width 16.7 % (11.6-14.4); Specific Grav Ur 1.015 (1.010-1.020); Urobilinogen Urine 0.2 mg/dL (0.2-1.0); White Blood Count 5.2 K/mm3 (4.8-10.8)
[2022-09-11 12:33] LABS: Basophils Absolute Auto 0.08 K/mm3 (0.00-0.10); Basophils Percent Auto 1.5 % (0.0-1.0); Eosinophils Absolute Auto 0.12 K/mm3 (0.02-0.50); Eosinophils Percent Auto 2.3 % (1.0-6.0); Immature Granulocyte Absolute 0.03 K/mm3 (0.00-0.00); Immature Granulocyte Percent A 0.6 % (0.0-0.0); Lymphocytes Absolute Auto 1.41 K/mm3 (1.10-4.50); Lymphocytes Percent Auto 27.2 % (18.0-42.0); Mean Platelet Volume 10.4 fl (8.7-11.0); Monocytes Percent Auto 5.8 % (2.0-11.0); Neutrophils Absolute Auto 3.3 K/mm3 (1.7-7.2); Neutrophils Percent Auto 62.6 % (50.0-70.0)
[2022-09-11 12:40] LABS: Add Urine Microscopic? YES; Appearance Urine Cloudy (Clear); Color Urine Dark Red (Yellow); RBC Urine 51-75 /hpf (0-2); WBC Urine 51-75 /hpf (0-3)
[2022-09-11 12:41] LABS: Bacteria Urine 2+ /hpf
[2022-09-11 13:04] LABS: Alanine Aminotransferase 34 U/L (16-63); Albumin Level 2.2 g/dL (3.4-5.0); Alkaline Phosphatase 364 U/L (46-116); Anion Gap 11 mmol/L (8-16); Aspartate Amino Transferase 36 U/L (15-37); Bilirubin,Total 0.9 mg/dL (0.00-1.00); Blood Urea Nitrogen 30 mg/dL (7-18); Calcium 8.4 mg/dL (8.5-10.1); Carbon Dioxide 20 mmol/L (21-32); Chloride 109 mmol/L (98-108); Estimated Glomerular Filt Rate 30; Ferritin 646 ng/mL (26-388); Free T4 Free Thyroxine 1.25 ng/dL (0.76-1.46); Glucose 137 mg/dL (70-99); Iron 61 ug/dL (65-175); NT Pro B Type Natriuretic Pept 1239 pg/mL (0-450); Osmolality Calculated 298 mOsm/kg (285-295); Potassium 4.1 mmol/L (3.5-5.1); Prostate Specific Antigen 5.2 ng/mL (< OR = 4.0); Sodium 140 mmol/L (136-145); Thyroid Stimulating Hormone 2.94 uIU/mL (0.36-3.74)
== END 2022-09-11 12:14 | disposition home or self-care (01) ==
PROVIDERS: PCP Internal Medicine; Visit Provider Internal Medicine
DX: D50.9 Iron deficiency anemia, unspecified (principal); R97.20 Elevated prostate specific antigen [PSA]; N18.4 Chronic kidney disease, stage 4 (severe); R82.90 Unspecified abnormal findings in urine; K74.69 Other cirrhosis of liver; I50.9 Heart failure, unspecified
CPT/HCPCS: 36415; 80053; 81001; 82728; 83540; 83880; 84153; 84439; 84443; 84481; 85025; 85055; 87086

== ENCOUNTER 2022-09-22 02:05 | Inpatient (IN) | payer MEDICARE, SELFPAY ==
[2022-09-22] VITALS (30 sets, daily range): BP systolic 90–135; BP diastolic 57–92; PULSE 59–88; RESP 13–23; TEMP 35.9–36.9; O2SAT 98–100; BMI 24.7
--- NOTE | ~2022-09-22 | CT_ITS ---
Non-contrast CT scan of the Abdomen and Pelvis Clinical indication: Acute kidney injury, hematuria Technique: 2.5 mm axial scans were obtained through the abdomen and pelvis without intravenous or or al contrast. Dose reduction technique was used on this scan by utilizing automated exposure control a nd iterative reconstruction technique. The dose-length product (DLP) was 725.50 mGy-cm. COMPARISON: 03/15/2022 Findings: Images through the lung bases reveal minimal bibasilar chronic interstitial disease. There is a highly nodular, cirrhotic appearance of liver, without definite focal mass. There is splen omegaly, with spleen measuring at least 16 cm in length. The pancreas, right kidney, and adrenals are essentially unremarkable. There is probable mild left renal atrophy and mild left hydroureteronephro sis. Gallbladder not visualized. There are atherosclerotic calcifications of the aorta. There is no evidence of bowel obstruction. Small amount of ascites present with diffuse mesenteric ed priya. There is wall thickening of the right colon, nonspecific. Images through the pelvis were performed. Nelson catheter is present within the urinary bladder. Prost ate gland is mildly enlarged. There is large amount of hyperdense blood products/hemorrhage within th e urinary bladder lumen. There is diffuse urinary bladder wall thickening. There is a large left-side d urinary bladder diverticulum measuring 6 cm in diameter. Additional 3.4 cm diverticulum is present at the superior, anterior aspect of the urinary bladder. Small fat-containing right inguinal hernia p resent. Impression: Large amount of hyperdense blood products/hemorrhagic material within the urinary bladder. Precise so urce is unclear. Diffuse urinary bladder wall thickening could reflect cystitis. Underlying neoplasm cannot be excluded based on this exam. 6 cm left-sided urinary bladder diverticulum. Additional 3.4 cm diverticulum at the superior aspect o f the urinary bladder. Mild left hydroureteronephrosis. Cirrhotic liver with associated splenomegaly and small amount of abdominopelvic ascites and diffuse m esenteric edema. Wall thickening of the right colon. Correlate for infectious/inflammatory colitis versus reactive wal l thickening due to the presence of ascites. Small fat-containing right hernia. Reviewed, dictated and finalized at location M. Impression: Large amount of hyperdense blood products/hemorrhagic material within the urina ry bladder. Precise source is unclear. Diffuse urinary bladder wall thickening could reflect cystitis. Underlying neoplasm cannot be excluded based on this ex am. 6 cm left-sided urinary bladder diverticulum. Additional 3.4 cm diverticulum at the superior aspect of the urinary bladder. Mild left hydroureteronephrosis. Cirrhotic liver with associated splenomegaly and small amount of abdominopelvic ascites and diffuse mesenteric edema. Wall thickening of the right colon. Correlate for infectious/inflammatory colit is versus reactive wall thickening due to the presence of ascites. Small fat-containing right hernia.
--- NOTE | 2022-09-22 02:00 | PC.NURSE ---
pt arrived by ems. PT c/c is peeing blood. pt voided and urine was bright red blood with clots. pt is axox4, airway is patent,spontaneous and self maintained. pt is on the monitor and appears to be in NSR w/o ectopy at this time. pt denies pain. skin: testicles are red. Buttox has a stage 2 ulcer at the top of the coccyx that blanches and is slightly open, surround skin is purple and pink. Iv established by ems 20g LFA.
[2022-09-22 02:54] LABS: Basophils Absolute Auto 0.1 K/mm3 (0.0-0.1); Basophils Percent Auto 0.8 % (0.2-1.2); Eosinophils Absolute Auto 0.1 K/mm3 (0-0.3); Eosinophils Percent Auto 1.3 % (0-4.4); Hematocrit 30.6 % (42.0-52.0); Immature Granulocyte Absolute 0.14 K/mm3 (0.00-0.031); Immature Granulocyte Percent A 2.3 % (0-0.5); Immature Platelet Fraction Pct 2.5 % (0.9-11.2); Lymphocytes Absolute Auto 1.49 K/mm3 (0.9-3.2); Lymphocytes Percent Auto 24.2 % (18.3-44.2); Mean Corpuscular HGB Conc 32.7 g/dl (32-36); Mean Corpuscular Hemoglobin 32.6 pg (26-34); Mean Corpuscular Volume 99.7 fl (80-100); Mean Platelet Volume 10.6 fl (7.4-10.4); Monocytes Absolute Auto 0.5 K/mm3 (0.1-0.6); Monocytes Percent Auto 8.1 % (2.6-8.5); Neutrophils Absolute Auto 3.9 K/mm3 (1.3-6.7); Neutrophils Percent Auto 63.3 % (45.5-73.1); Platelet Count Result 103 k/mm3 (150-375); Red Blood Count 3.07 M/mm3 (4.6-6.20); Red Cell Distribution Width 17.2 % (11.5-14.5); White Blood Count 6.2 K/mm3 (4.5-10.0)
[2022-09-22 03:02] LABS: INR 1.2; Partial Thromboplastin Time 29.5 SECONDS (22.3-36.8)
[2022-09-22 03:13] LABS: Appearance Urine Turbid (Clear); Bilirubin Urine 1+ (Negative); Blood Urine 3+ (Negative); Color Urine Red (Yellow); Glucose Urine UA 2+ mg/dL (Negative); Ketones Urine Negative (Negative); Leukocyte Esterase Ur Trace LEU/UL (Negative); Nitrate Urine Negative (Negative); Protein Urine 3+ mg/dL (Negative); Specific Grav Ur 1.025 (1.001-1.035); Urobilinogen Urine 0.2 mg/dL (<2.0)
[2022-09-22 03:23] LABS: Add Urine Microscopic? YES
[2022-09-22 03:25] LABS: Need Manual Microscopic Yes
[2022-09-22 03:26] LABS: RBC Urine >100 /hpf (0-2); Squamous Epithelial Cell Urine Unable to determine /hpf (Few); WBC Urine Unable to determine /hpf (0-3)
[2022-09-22 03:27] LABS: Bacteria Urine Unable to determine /hpf
--- NOTE | 2022-09-22 03:58 | PC.NURSE ---
Pt's daughter, Yessenia's phone number [phone].
--- NOTE | 2022-09-22 04:06 | ED.GENADULT ---
HPI - General Adult General Chief complaint: Urogenital-Male Stated complaint: blood in urine Time Seen by Provider: 09/22/22 02:27 History of Present Illness HPI narrative: Patient 87-year-old gentleman who presents the emergency department with chief complaint of hematuria. Patient reports that he is on aspirin and recently had a catheter removed patient reports that this evening he tried to urinate and had right red blood coming from the tip of his penis the patient reports that he has had continual bleeding even after he stopped urinating patient reports no trauma reports that he has some irritation whenever he urinates patient denies fever denies flank pain. Related Data Home Medications Medication Instructions Recorded Confirmed allopurinol 100 mg tablet 100 mg PO DAILY 05/26/20 08/28/22 atorvastatin 40 mg tablet 20 mg PO DAILY 05/26/20 08/28/22 folic acid 1 mg tablet 1 mg PO DAILY 05/26/20 08/28/22 tamsulosin 0.4 mg capsule 0.8 mg PO BID 05/26/20 08/28/22 ferrous sulfate 134 mg (27 mg 134 mg PO DAILY 02/22/22 08/28/22 iron) tablet carvedilol 3.125 mg tablet 1.56 mg PO TID 03/12/22 08/28/22 Allergies Allergy/AdvReac Type Severity Reaction Status Date / Time No Known Allergies Allergy Verified 07/18/22 15:00 Review of Systems Review of Systems: A 10 system review of systems was completed on the patient and is negative except for what is stated in the HPI. Nursing and ancillary documentation was reviewed. [facility] Past Medical History Medical History Acute UTI (urinary tract infection) BPH (benign prostatic hyperplasia) CAD (coronary artery disease) Dehydration, mild Diabetes 1.5, managed as type 2 Gout History of kidney stones Hyperlipidemia Hypertension Viral syndrome Surgical History Surgical History H/O hernia repair H/O removal of cyst On his chest History of back surgery History of cardiac catheterization Stented coronary artery 2015, and 2017 Family History Family History Father Diabetes mellitus Heart disease Acute myocardial infarction Sibling Diabetes mellitus Social History Social History Social History: The patient lives with his has 2 Children. Patient is retired from [employer]. The patient stated he used to drink heavily but does not drink anymore. 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 Code status full code Smoking status: Unknown if ever smoked Tobacco type: cigars Second hand tobacco smoke exposure: No Alcohol intake: former Substance use: never Substance use type: does not use Lack of Transportation: No Lack of Food: Never True Current Housing: I Have Housing Concerned About Future Housing: No Difficulty Paying Gas/Electric Bills: No Difficulty Paying for Meds: No Currently Unemployed: No Education: Trade/Vocational Certificate Difficulty w/ Childcare or Family Care: No Living arrangements: with family Spiritual care concerns: No Exam Narrative: GENERAL: Well-appearing, well-nourished, and in no acute distress. HEAD: Normocephalic, atraumatic. EYES: PERRLA and EOMI. ENT: Nares clear, no rhinorrhea or epistaxis. Mucous membranes moist. NECK: Supple. CHEST: Clear to auscultation. No respiratory distress. HEART: Regular rate and rhythm. No murmur heard. Normal peripheral pulses. ABDOMEN: Soft, nontender, nondistended, normal active bowel sounds. : Uncircumcised penis with blood-tinged urine coming from the meatus no overt signs of trauma EXTREMITIES: Normal range of motion. No edema. SKIN: Warm, dry, no rash. NEURO: No focal deficits. Alert and oriented x3. PSYCH: Normal mood and affect. Course Vital Signs Vital signs: Vital Signs Temper
[2022-09-22 04:12] LABS: Alanine Aminotransferase 28 U/L (6-50); Albumin Level 2.7 g/dL (3.5-5.1); Alkaline Phosphatase 273 U/L (38-126); Anion Gap 11 mmol/L (8-16); Aspartate Amino Transferase 42 U/L (17-59); Bilirubin,Total 0.8 mg/dL (0.2-1.3); Blood Urea Nitrogen 45 mg/dL (9-20); Calcium 8.5 mg/dL (8.4-10.2); Carbon Dioxide 16 mmol/L (22-30); Chloride 112 mmol/L (98-107); Estimated CRCL calculation 17 ml/min; Estimated Glomerular Filt Rate 23; Glucose 202 mg/dL (65-110); Potassium 4.2 mmol/L (3.4-5.0); Sodium 139 mmol/L (137-145)
--- NOTE | 2022-09-22 04:50 | PC.NURSE ---
pt continues to get CBI and lots of clots noticed. Color went from bright red to medium rare pink Pt is ax04, abc are wnl nad. airway is patent,spontaneous and self maintained. pt denies pain. Pt is on the surveillance monitor and is in NSR w/o ectopy.
--- NOTE | 2022-09-22 06:01 | PC.NURSE ---
pt has a small bm
--- NOTE | 2022-09-22 06:02 | PC.NURSE ---
report called to ismael
--- NOTE | 2022-09-22 06:15 | ADMGEN ---
This patient, Jaspal Ruggiero, was admitted to Medical Room 261-01. Patient/family oriented to hospital policies and general routines including ID bracelet, bed and alarms, visiting hours, pain management, procedures, bathroom and other care routines, personal items, smoking policy, room service/diet, and visiting hours. Information on how to activate the Rapid Response Team has been discussed. Patient/Family are encouraged to report perceived risks to care and to ask questions if they do not understand what they are told or what they should do.
[2022-09-22 06:25] LABS: Hematocrit 24.5 % (42.0-52.0); Hemoglobin 7.9 g/dL (14.0-18.0)
--- NOTE | 2022-09-22 07:10 | PC.NURSE ---
CALLED DAUGHTER TO CONFIRM PT MEDS SHE STATED SHE DID NOT KNOW THEM OFF THE TOP OF HER HEAD BUT SHE WILL CALL BACK OR BRING THE MED LIST LATER TODAY. PT DOES NOT KNOW HIS CURRENT MEDS
[2022-09-22 08:26] LABS: Glucose Point of Care 190 mg/dl (65-105)
--- NOTE | 2022-09-22 10:54 | WPDANESEPPF ---
Anes - Initial Pre Proc Eval Procedure: Operation Date: 09/22/22 19:30 Proposed Procedures p Cystoscopy, Evacuation Bladder Clot - Jose L Medeiros MD Date/Time: 09/22/22 10:54 Surgeon: Art Sebastian MD Pre Op Diagnosis: Hematuria Patient Data Age: 87 Gender: M Height: 1.7 m Weight: 71.7 kg Last Vital Signs Temp 35.9 C L 09/22/22 06:14 Pulse 78 09/22/22 06:14 Resp 18 09/22/22 06:14 BP 115/63 09/22/22 06:14 Pulse Ox 100 09/22/22 06:14 O2 Del Method Room Air 09/22/22 06:37 Allergies Allergy/AdvReac Type Severity Reaction Status Date / Time No Known Allergies Allergy Verified 07/18/22 15:00 Home Medications Medication Instructions Recorded Confirmed Type allopurinol 100 mg tablet 100 mg PO DAILY 05/26/20 09/22/22 History atorvastatin 40 mg tablet 20 mg PO DAILY 05/26/20 09/22/22 History folic acid 1 mg tablet 1 mg PO DAILY 05/26/20 09/22/22 History tamsulosin 0.4 mg capsule 0.8 mg PO BID 05/26/20 09/22/22 History ferrous sulfate 134 mg (27 mg 134 mg PO DAILY 02/22/22 09/22/22 History iron) tablet carvedilol 3.125 mg tablet 1.56 mg PO TID 03/12/22 09/22/22 History pantoprazole 40 mg tablet,delayed 40 mg PO QAM #30 tabs 08/10/22 09/22/22 Rx release aspirin 81 mg tablet,delayed 81 mg PO QAM #30 tabs 09/04/22 09/22/22 Rx release empagliflozin 10 mg tablet 10 mg PO DAILY 30 days #30 tabs 09/04/22 09/22/22 Rx (Jardiance) Laboratory Tests 09/22/22 09/22/22 09/22/22 02:44 06:16 08:17 WBC 6.2 K/mm3 (4.5-10.0) RBC 3.07 L M/mm3 (4.6-6.20) Hgb 10.0 L g/dL 7.9 L g/dL (14.0-18.0) (14.0-18.0) Hct 30.6 L % 24.5 L % (42.0-52.0) (42.0-52.0) MCV 99.7 fl (80-100) MCH 32.6 pg (26-34) MCHC 32.7 g/dl (32-36) RDW 17.2 H % (11.5-14.5) Plt Count 103 L D k/mm3 (150-375) MPV 10.6 H fl (7.4-10.4) Immature Gran % (Auto) 2.3 H % (0-0.5) Neut % (Auto) 63.3 % (45.5-73.1) Lymph % (Auto) 24.2 % (18.3-44.2) Hubbard % (Auto) 8.1 % (2.6-8.5) Eos % (Auto) 1.3 % (0-4.4) Baso % (Auto) 0.8 % (0.2-1.2) Lymph # (Auto) 1.49 K/mm3 (0.9-3.2) Hubbard # (Auto) 0.5 K/mm3 (0.1-0.6) Eos # (Auto) 0.1 K/mm3 (0-0.3) Baso # (Auto) 0.1 K/mm3 (0.0-0.1) Abs Immat Gran (auto) 0.14 H K/mm3 (0.00-0.031) Absolute Neuts (auto) 3.9 K/mm3 (1.3-6.7) Absolute Nucleated RBC 0.0 K/mm3 (0.0-0.012) Nucleated RBC % 0.0 % (0.0-0.2) % Immature Plt Fraction 2.5 % (0.9-11.2) PT 16.0 H Seconds (11.1-14.7) INR 1.2 APTT 29.5 SECONDS (22.3-36.8) Sodium 139 mmol/L (137-145) Potassium 4.2 mmol/L (3.4-5.0) Chloride 112 H mmol/L (98-107) Carbon Dioxide 16 L mmol/L (22-30) Anion Gap 11 mmol/L (8-16) BUN 45 H D mg/dL (9-20) Creatinine 2.60 H mg/dL (0.7-1.3) Estim Creat Clear Calc 17 ml/min Estimated GFR 23 L (59 - ) Glucose 202 H mg/dL (65-110) POC Capillary Glucose 190 H mg/dl (65-105) Calcium 8.5 mg/dL (8.4-10.2) Total Bilirubin 0.8 mg/dL (0.2-1.3) AST 42 U/L (17-59) ALT 28 U/L (6-50) Alkaline Phosphatase 273 H U/L (38-126) Total Protein 7.0 g/dL (6.3-8.2) Albumin 2.7 L g/dL (3.5-5.1) Urine Color Red H (Yellow) Urine Appearance Turbid H (Clear) Urine pH 7.0 (5.0-9.0) Ur Specific Coolin 1.025 (1.001-1.035) Urine Protein 3+ H mg/dL (Negative) Urine Glucose (UA) 2+ H mg/dL (Negative) Urine Ketones Negative mg/dL (Negative) Ur Blood (Man) 3+ H (Negative) Urine Nitrate Negative (Negative)
--- NOTE | 2022-09-22 10:54 | WPDURCON ---
Assessment and Plan Assessment and plan (1) Hematuria: Qualifiers: Hematuria type: gross Qualified Code(s): R31.0 - Gross hematuria Code(s): R31.9 - Hematuria, unspecified Status: Acute Assessment and Plan: We attempted to irrigated the 18fr [address] way soler with >200cc of NS, but were unable to clear the clots and met resistance. We then changed the catheter to a 22fr [address] way catheter where we had more success irrigating and small clots were removed, we irrigated >500cc of NS without success of removing clots. The patient will be taken to the OR today with Dr. Gallardo for a Cysto with Clot evacuation. Obtain consent. Keep NPO. (2) UTI (urinary tract infection): Code(s): N39.0 - Urinary tract infection, site not specified Status: Acute (3) Acute kidney injury superimposed on CKD: Code(s): N17.9 - Acute kidney failure, unspecified; N18.9 - Chronic kidney disease, unspecified Status: Acute Urology Consult Note HPI Date Seen: 09/22/22 Time Seen: 09:00 Requesting Physician: Art Sebastian MD Primary Care Provider: Yeyo Henriquez MD Consult Narrative Reason for consult: Gross Hematuria Narrative: Jaspal Ruggiero is a 87 year old male who came to the ER with c/o his catheter being removed recently and being unable to urinate d/t bloody urine with clots. He takes a baby aspirin at home but no other anticoagulants. WBC 6.2, creatinine is 2.60, UA is suggestive of a UTI, but no culture has been sent at this time. An 18fr [address] soler was placed after admission and CBI was started but he continues to drain red urine and the output is slow and not draining well. A CT scan was also obtained showing a large amount of hyperdense blood product and mild left hydronephrosis present despite catheter being in place. She is afebrile and otherwise doing ok. He denies dysuria prior to catheter insertion, flank pain or abdominal pain. Review of Systems Cardiovascular: Cardiovascular: Denies chest pain Respiratory: Respiratory: Reports no additional respiratory complaints Gastrointestinal: Gastrointestinal: Denies abdominal pain, Denies nausea and Denies vomiting Genitourinary: Genitourinary: Reports hematuria, Reports oliguria, Denies dysuria, Denies flank pain, Denies urinary frequency, Reports urinary hesitancy, Denies urinary incontinence and Denies urinary urgency PMF Past Medical History Medical History Acute UTI (urinary tract infection) BPH (benign prostatic hyperplasia) CAD (coronary artery disease) Dehydration, mild Diabetes 1.5, managed as type 2 Gout History of kidney stones Hyperlipidemia Hypertension Viral syndrome Surgical History Surgical History H/O hernia repair H/O removal of cyst On his chest History of back surgery History of cardiac catheterization Stented coronary artery 2015, and 2018 Family History Family History Father Diabetes mellitus Heart disease Acute myocardial infarction Sibling Diabetes mellitus Social History Social History Social History: The patient lives with his has 2 Children. Patient is retired from [employer]. The patient stated he used to drink heavily but does not drink anymore. His is the durable power commonwealth attorney for healthcare. Code status full code Smoking status: Former smoker Tobacco type: cigars Second hand tobacco smoke exposure: No Alcohol intake: former Substance use: never Substance use type: does not use Lack of Transportation: No Lack of Food: Never True Current Housing: I Have Housing Concerned About Future Housing: No Difficulty Paying Gas/Electric Bills: No Difficulty Paying for Meds: No Currently Unemployed: No Education: Associate Degree
[2022-09-22 11:45] LABS: Glucose Point of Care 143 mg/dl (65-105)
[2022-09-22] MEDS: LACTATED RINGERS 1,000 ML 30 ML IV CONT (11:54)
[2022-09-22] MEDS: ceFAZolin SODIUM 1 GM VIAL 2 GM IV PUSH (12:05)
--- NOTE | 2022-09-22 12:18 | W.PM.PROC2 ---
Procedure Note - Detailed Date of Procedure 09/22/22 Pre-op Diagnosis Hematuria Post-op Diagnosis Other ( Hematuria secondary to BPH) Procedure Performed Cystoscopy, clot evacuation and cauterization prostatic urethra Surgeon Yuan Gallardo MD Anesthesia General Findings Moderately enlarged prostate with oozing from the lateral lobes. Description of Procedure Patient brought the op suite was prepped draped in routine sterile fashion while in dorsal lithotomy position. 2% xylocaine jelly was introduced intraurethrally and systemic sedation is administered per the anesthesia department. Cystoscopy is undertaken with a 24 F rigid cystoscope. There was no urethral stricture but he does have notable prostatic hyperplasia predominantly lateral lobe enlargement. There is obvious oozing from the lateral lobes. Upon entering the bladder AC dense trabeculation with cellule and diverticular formation. There was some definitive clot which was evacuated with a Toomy syringe. I carefully inspected the bladder including all diverticula. There was no intravesical neoplasm or foreign bodies (other than clots). He has a single orthotopic ureteral orifice bilaterally. I cauterized the areas of oozing in the prostatic urethra and removed the resectoscope. A 22 F hematuria catheter was placed to continuous irrigation. Drains Yes Pathology None sent Complications No immediate complications Condition Stable Disposition PACU
[2022-09-22 13:32] LABS: Hematocrit 24.1 % (42.0-52.0); Hemoglobin 7.7 g/dL (14.0-18.0)
[2022-09-22 13:40] LABS: Glucose Point of Care 138 mg/dl (65-105)
[2022-09-22] MEDS: carvediloL 1.56 MG TABLET PO ×2 (14:19→18:09)
--- NOTE | 2022-09-22 16:30 | PM.IMHP ---
H&P: HPI History of Present Illness Date/Time: 09/22/22 16:30 Chief Complaint: Hematuria Narrative: ED-HPI narrative: Patient 87-year-old gentleman who presents the emergency department with chief complaint of hematuria.? Patient reports that he is on aspirin and recently had a catheter removed patient reports that this evening he tried to urinate and had right red blood coming from the tip of his penis the patient reports that he has had continual bleeding even after he stopped urinating patient reports no trauma reports that he has some irritation whenever he urinates patient denies fever denies flank pain. Patient states there was no pain, denies any abdominal pain nausea or vomiting fever or chills, patient was seen by urologist patient had a cystoscopy that showed patient has enlarged prostate and there was oozing of the blood, it was cauterized which did stop the bleeding, patient just returned from the surgery and still somnolent, will continue to monitor continue check H&H, Patient is admitted as observation status Review of Systems Cardiovascular: Cardiovascular: Denies chest pain Respiratory: Respiratory: Reports no additional respiratory complaints Gastrointestinal: Gastrointestinal: Denies abdominal pain, Denies nausea and Denies vomiting Genitourinary: Genitourinary: Reports hematuria, Reports oliguria, Denies dysuria, Denies flank pain, Denies urinary frequency, Reports urinary hesitancy, Denies urinary incontinence and Denies urinary urgency PMFSH Past Medical History Medical History Acute UTI (urinary tract infection) BPH (benign prostatic hyperplasia) CAD (coronary artery disease) Dehydration, mild Diabetes 1.5, managed as type 2 Gout History of kidney stones Hyperlipidemia Hypertension Viral syndrome Surgical History Surgical History H/O hernia repair H/O removal of cyst On his chest History of back surgery History of cardiac catheterization Stented coronary artery 2015, and 2018 Family History Family History Father Diabetes mellitus Heart disease Acute myocardial infarction Sibling Diabetes mellitus Social History Social History Social History: The patient lives with his has 2 Children. Patient is retired from [employer]. The patient stated he used to drink heavily but does not drink anymore. His is the durable power contract attorney for healthcare. Code status full code Smoking status: Former smoker Tobacco type: cigars Second hand tobacco smoke exposure: No Alcohol intake: former Substance use: never Substance use type: does not use Lack of Transportation: No Lack of Food: Never True Current Housing: I Have Housing Concerned About Future Housing: No Difficulty Paying Gas/Electric Bills: No Difficulty Paying for Meds: No Currently Unemployed: No Education: Associate Degree Difficulty w/ Childcare or Family Care: No Living arrangements: with family Spiritual care concerns: No Meds Home Medications and Allergies Home Medications Medication Instructions Recorded Confirmed Type allopurinol 100 mg tablet 100 mg PO DAILY 05/26/20 09/22/22 History atorvastatin 40 mg tablet 20 mg PO DAILY 05/26/20 09/22/22 History folic acid 1 mg tablet 1 mg PO DAILY 05/26/20 09/22/22 History tamsulosin 0.4 mg capsule 0.8 mg PO BID 05/26/20 09/22/22 History ferrous sulfate 134 mg (27 mg 134 mg PO DAILY 02/22/22 09/22/22 History iron) tablet carvedilol 3.125 mg tablet 1.56 mg PO TID 03/12/22 09/22/22 History pantoprazole 40 mg tablet,delayed 40 mg PO QAM #30 tabs 08/10/22 09/22/22 Rx release aspirin 81 mg tablet,delayed 81 mg PO QAM #30 tabs 09/04/22 09/22/22 Rx release empagliflozin 10 mg tablet 10 mg PO DAILY 30 days #30
[2022-09-22 17:55] LABS: Hematocrit 26.6 % (42.0-52.0); Hemoglobin 8.4 g/dL (14.0-18.0)
[2022-09-22 18:08] LABS: Glucose Point of Care 173 mg/dl (65-105)
[2022-09-22] MEDS: TAMSULOSIN HCL 0.4 MG CAPSULE 0.8 MG PO (18:09)
[2022-09-22 23:40] LABS: Hematocrit 22.9 % (42.0-52.0); Hemoglobin 7.3 g/dL (14.0-18.0)
[2022-09-23] VITALS (8 sets, daily range): BP systolic 103–135; BP diastolic 52–62; PULSE 64–72; RESP 16–21; TEMP 36.3–36.9; O2SAT 98–100
[2022-09-23 06:03] LABS: Hematocrit 23.1 % (42.0-52.0); Hemoglobin 7.3 g/dL (14.0-18.0); Immature Platelet Fraction Pct 3.6 % (0.9-11.2); Mean Corpuscular HGB Conc 31.6 g/dl (32-36); Mean Corpuscular Hemoglobin 31.6 pg (26-34); Mean Platelet Volume 12.1 fl (7.4-10.4); Platelet Count Result 54 k/mm3 (150-375); Red Blood Count 2.31 M/mm3 (4.6-6.20); Red Cell Distribution Width 17.1 % (11.5-14.5); White Blood Count 3.2 K/mm3 (4.5-10.0)
[2022-09-23 06:26] LABS: Magnesium 1.6 mg/dL (1.6-2.3)
--- NOTE | 2022-09-23 08:43 | PM.IMPN ---
Progress Note: A&P Assessment and Plan (1) Hematuria: Qualifiers: Hematuria type: gross Qualified Code(s): R31.0 - Gross hematuria Code(s): R31.9 - Hematuria, unspecified Status: Acute Assessment and Plan: ED-[facility] narrative: Patient 87-year-old gentleman who presents the emergency department with chief complaint of hematuria.? Patient reports that he is on aspirin and recently had a catheter removed patient reports that this evening he tried to urinate and had bright red blood coming from the tip of his penis the patient reports that he has had continual bleeding even after he stopped urinating patient reports no trauma reports that he has some irritation whenever he urinates patient denies fever denies flank pain. Patient states there was no pain, denies any abdominal pain nausea or vomiting fever or chills, patient was seen by urologist patient had a cystoscopy that showed patient has enlarged prostate and there was oozing of the blood, it was cauterized which did stop the bleeding, patient just returned from the surgery and still somnolent, will continue to monitor continue check H&H, 09/23/2022: Patient presented with gross hematuria. Recent history of the same underlying history of cirrhosis with GI bleed with rectal versus hypertension hyperlipidemia BPH history of diabetes on oral hypoglycemic agent. Coronary artery disease status post stents in 2016 and 2018 history of kidney stones and gout. Recent admission for DKA. A1c 10.1 discharged on insulin. Urology was consulted completed antibiotic course with the suspected etiology for his hematuria. Nelson catheter to continue per Urology recommendation which was recently discontinued. Creatinine of 2.6 on admission. Urology consulted irrigation was started however unsuccessful hence taken to the OR for cystoscopy and clot evacuation which was performed on 09/22/2022 also had cauterization of the prostatic urethra at the areas of oozing. He was discharged on insulin however he does not seem to be on insulin anymore. Will check his A1c (2) Generalized weakness: Code(s): R53.1 - Weakness Status: Acute Assessment and Plan: Most likely secondary to anemia, once clinically stable patient will benefit from physical therapy (3) Thrombocytopenia: Code(s): D69.6 - Thrombocytopenia, unspecified Status: Acute Assessment and Plan: Chronic and improved Subjective Date/time seen: 09/23/22 08:43 Interval history: No overnight events. H&H is stable. Thrombocytopenia which is chronic creatinine 2.6 Review of Systems Review of Systems: All systems reviewed & are unremarkable except as noted in HPI and below Exam Narrative: Elderly frail Patient is comfortable, NAD HEENT: eyes are clear and none icteric LUNGS: Normal respiratory effort ABD: Not distended Lower extremities: no edema SKIN: nonjaundiced Neuro: grossly intact. Objective Data Vital Signs Vital Signs: Vital Signs - 24 hr 09/22/22 11:51 09/22/22 12:23 09/22/22 12:35 Temperature 97.6 F 96.9 F L 97.5 F L Pulse Rate 71 71 68 Respiratory Rate 14 18 18 Blood Pressure 133/71 133/57 L 114/74 Pulse Oximetry 100 100 100 Oxygen Delivery Room Air Simple Face Mask Simple Face Mask Oxygen Flow Rate 6 6 09/22/22 12:50 09/22/22 13:05 09/22/22 13:20 Temperature 97.6 F 98.0 F Pulse Rate 68 68 66 Respiratory Rate 16 13 14 Blood Pressure 121/72 121/78 113/67 Pulse Oximetry 100 100 100 Oxygen Delivery Simple Face Mask Room Air Room Air Oxygen Flow Rate 6 09/22/22 13:35 09/22/22 13:43 09/22/22 14:19 Temperature Pulse Rate 67 65 70 Respiratory Rate 14 14 Blood Pressure 124/68 122/65 Pulse Oximetry 100 100 Oxygen Delivery Room Air Room Air Oxygen Flow Rate 09/22/22 18:06 09/22/22 18:09 09/22/22 14:00 Temperature 97.8 F 97.5 F L Pulse Rate 72 74 68 Respiratory Rate 16 16 Blood Pressure 113/72 130/71 Pulse Oximet
[2022-09-23 09:08] LABS: Glucose Point of Care 140 mg/dl (65-105)
[2022-09-23] MEDS: TAMSULOSIN HCL 0.4 MG CAPSULE 0.8 MG PO ×2 (09:33→18:03)
[2022-09-23] MEDS: ATORVASTATIN 20 MG TABLET PO (09:33)
[2022-09-23] MEDS: allopurinoL 100 MG TABLET PO (09:33)
[2022-09-23] MEDS: ASPIRIN 81 MG ENTERIC TABLET PO (09:33)
[2022-09-23] MEDS: FERROUS SULFATE DRIED 142 MG TABCR PO (09:33)
[2022-09-23] MEDS: PANTOPRAZOLE 40 MG TABLET PO (09:33)
[2022-09-23] MEDS: FINASTERIDE 5 MG TABLET PO (09:33)
[2022-09-23] MEDS: carvediloL 1.56 MG TABLET PO ×3 (09:34→18:02)
[2022-09-23] MEDS: FOLIC ACID 1 MG TABLET PO (09:35)
[2022-09-23] MEDS: EMPAGLIFLOZIN 10 MG TABLET PO (09:35)
[2022-09-23 12:17] LABS: Glucose Point of Care 150 mg/dl (65-105)
--- NOTE | 2022-09-23 12:53 | WPDUROPN2 ---
Progress Note: A&P Assessment and Plan (1) Hematuria: Qualifiers: Hematuria type: gross Qualified Code(s): R31.0 - Gross hematuria Code(s): R31.9 - Hematuria, unspecified Status: Acute Assessment and Plan: POD#1 s/p cysto/clot evacuation and fulguration bleeding hematuria clearing on cbi, no clots -titrate cbi to light pink. (2) Hematuria: Code(s): R31.9 - Hematuria, unspecified Status: Acute (3) UTI (urinary tract infection): Code(s): N39.0 - Urinary tract infection, site not specified Status: Acute Subjective Subjective Date/Time Seen: 09/23/22 12:53 Interval history: urine clear overnight. no clots or pain, cbi restarted this am after it got darker with ambulation Review of Systems Cardiovascular: Cardiovascular: Reports no additional cardiovascular complaints Respiratory: Respiratory: Reports no additional respiratory complaints Genitourinary: Genitourinary: Reports as per HPI Neurologic: Reports system reviewed and no additional complaints, except as documented Exam Const: General: cooperative, healthy appearing, comfortable and no acute distress HENMT: Head: normocephalic and atraumatic Eyes: General: appearance normal, both eyes and all related structures Resp: Effort & Inspection: normal respiratory effort, able to speak in complete sentences and no audible wheezes GI: Inspection: normal to inspection and non-distended : General: Yes bladder normal to inspection, No CVA tenderness and Yes no CVA tenderness Urinary Catheter: Urinary Catheter: patent and draining and urine pink Skin: General skin exam: normal color Neuro: General: oriented to person, oriented to place and oriented to time Objective Data Vital Signs Vital Signs: Vital Signs - 24 hr 09/22/22 13:05 09/22/22 13:20 09/22/22 13:35 Temperature 36.7 C Pulse Rate 68 66 67 Respiratory Rate 13 14 14 Blood Pressure 121/78 113/67 124/68 Pulse Oximetry 100 100 100 Oxygen Delivery Room Air Room Air Room Air 09/22/22 13:43 09/22/22 14:19 09/22/22 18:06 Temperature 36.6 C Pulse Rate 65 70 72 Respiratory Rate 14 16 Blood Pressure 122/65 113/72 Pulse Oximetry 100 100 Oxygen Delivery Room Air 09/22/22 18:09 09/22/22 14:00 09/22/22 14:15 Temperature 36.4 C L 36.4 C L Pulse Rate 74 68 69 Respiratory Rate 16 16 Blood Pressure 130/71 132/78 Pulse Oximetry 100 98 Oxygen Delivery 09/22/22 14:45 09/22/22 18:45 09/22/22 19:45 Temperature 36.4 C L 36.5 C 36.5 C Pulse Rate 70 70 72 Respiratory Rate 18 16 20 Blood Pressure 128/70 124/71 134/68 Pulse Oximetry 100 98 100 Oxygen Delivery 09/22/22 20:00 09/23/22 03:57 09/23/22 09:30 Temperature 36.3 C L Pulse Rate 72 67 64 Respiratory Rate 20 18 Blood Pressure 115/52 L 135/62 Pulse Oximetry 100 98 Oxygen Delivery Room Air 09/23/22 09:34 Temperature Pulse Rate 65 Respiratory Rate Blood Pressure Pulse Oximetry Oxygen Delivery Intake/Output Intake/Output: Intake & Output 09/20/22 09/21/22 09/22/22 09/23/22 23:59 23:59 23:59 23:59 Intake Total 1590 490 Output Total 5600 900 Balance -4010 -410 Meds/Results Medications: Active Medications Generic Name Dose Route Start Last Admin Trade Name Freq PRN Reason Stop Dose Admin Allopurinol 100 mg 09/23/22 09:00 09/23/22 09:33 Allopurinol 100 Mg Tablet PO 100 mg DAILY OSIEL Administration Aspirin 81 mg 09/23/22 09:00 09/23/22 09:33 Aspirin 81 Mg Enteric Tablet PO 81 mg QAM OSIEL Administration Atorvastatin Calcium 20 mg 09/23/22 09:00 09/23/22 09:33 Atorvastatin 20 Mg Tablet PO 20 mg DAILY OSIEL Administration Carvedilol 1.56 mg 09/22/22 13:00 09/23/22 09:34 Carvedilol 1.56 Mg Tablet PO 1.56 mg TID OSIEL Administration Empagliflozin 10 mg 09/23/22 09:00 09/23/22 09:35 Empagliflozin 10 Mg Tablet PO 10 mg DAILY OSIEL Administration Ferrous Sulfate
[2022-09-23 17:21] LABS: Glucose Point of Care 188 mg/dl (65-105)
[2022-09-23 17:40] LABS: Anion Gap 5 mmol/L (8-16); Blood Urea Nitrogen 46 mg/dL (9-20); Calcium 8.2 mg/dL (8.4-10.2); Carbon Dioxide 18 mmol/L (22-30); Chloride 114 mmol/L (98-107); Estimated CRCL calculation 20 ml/min; Estimated Glomerular Filt Rate 28; Glucose 151 mg/dL (65-110); Potassium 4.7 mmol/L (3.4-5.0); Sodium 137 mmol/L (137-145)
[2022-09-23 21:28] LABS: Glucose Point of Care 200 mg/dl (65-105)
[2022-09-24] VITALS (10 sets, daily range): BP systolic 103–115; BP diastolic 54–67; PULSE 68–75; RESP 16–21; TEMP 36.2–36.6; O2SAT 90–100
[2022-09-24 05:53] LABS: Basophils Percent Auto 0.6 % (0.2-1.2); Eosinophils Absolute Auto 0.2 K/mm3 (0-0.3); Eosinophils Percent Auto 3.2 % (0-4.4); Hematocrit 24.9 % (42.0-52.0); Hemoglobin 7.9 g/dL (14.0-18.0); Immature Granulocyte Absolute 0.09 K/mm3 (0.00-0.031); Immature Granulocyte Percent A 1.7 % (0-0.5); Immature Platelet Fraction Pct 2.8 % (0.9-11.2); Lymphocytes Absolute Auto 0.99 K/mm3 (0.9-3.2); Lymphocytes Percent Auto 18.8 % (18.3-44.2); Mean Corpuscular HGB Conc 31.7 g/dl (32-36); Mean Corpuscular Hemoglobin 32.1 pg (26-34); Mean Corpuscular Volume 101.2 fl (80-100); Mean Platelet Volume 10.9 fl (7.4-10.4); Monocytes Absolute Auto 0.3 K/mm3 (0.1-0.6); Monocytes Percent Auto 6.1 % (2.6-8.5); Neutrophils Absolute Auto 3.7 K/mm3 (1.3-6.7); Neutrophils Percent Auto 69.6 % (45.5-73.1); Platelet Count Result 68 k/mm3 (150-375); Red Blood Count 2.46 M/mm3 (4.6-6.20); Red Cell Distribution Width 17.2 % (11.5-14.5); White Blood Count 5.3 K/mm3 (4.5-10.0)
[2022-09-24 06:02] LABS: Alanine Aminotransferase 20 U/L (6-50); Albumin Level 2.5 g/dL (3.5-5.1); Alkaline Phosphatase 210 U/L (38-126); Anion Gap 8 mmol/L (8-16); Aspartate Amino Transferase 35 U/L (17-59); Bilirubin,Total 0.4 mg/dL (0.2-1.3); Blood Urea Nitrogen 45 mg/dL (9-20); Calcium 8.2 mg/dL (8.4-10.2); Carbon Dioxide 18 mmol/L (22-30); Chloride 112 mmol/L (98-107); Estimated CRCL calculation 19 ml/min; Estimated Glomerular Filt Rate 27; Glucose 150 mg/dL (65-110); Magnesium 1.6 mg/dL (1.6-2.3); Potassium 4.2 mmol/L (3.4-5.0); Sodium 138 mmol/L (137-145)
[2022-09-24] MEDS: FERROUS SULFATE DRIED 142 MG TABCR PO (08:17)
[2022-09-24] MEDS: ASPIRIN 81 MG ENTERIC TABLET PO (08:17)
[2022-09-24] MEDS: allopurinoL 100 MG TABLET PO (08:17)
[2022-09-24] MEDS: carvediloL 1.56 MG TABLET PO ×3 (08:18→18:26)
[2022-09-24] MEDS: FOLIC ACID 1 MG TABLET PO (08:18)
[2022-09-24] MEDS: TAMSULOSIN HCL 0.4 MG CAPSULE 0.8 MG PO ×2 (08:18→18:26)
[2022-09-24] MEDS: EMPAGLIFLOZIN 10 MG TABLET PO (08:18)
[2022-09-24] MEDS: PANTOPRAZOLE 40 MG TABLET PO (08:18)
[2022-09-24] MEDS: ATORVASTATIN 20 MG TABLET PO (08:18)
[2022-09-24] MEDS: FINASTERIDE 5 MG TABLET PO (08:18)
[2022-09-24 08:44] LABS: Glucose Point of Care 143 mg/dl (65-105)
--- NOTE | 2022-09-24 11:40 | WPDUROPN2 ---
Progress Note: A&P Assessment and Plan (1) Hematuria: Qualifiers: Hematuria type: gross Qualified Code(s): R31.0 - Gross hematuria Code(s): R31.9 - Hematuria, unspecified Status: Acute Assessment and Plan: POD#2 s/p cysto/clot evacuation and fulguration bleeding hematuria clearing on cbi, no clots -cbi off urine clear ok to dc with soler outpt followup 1-2 weeks. (2) UTI (urinary tract infection): Code(s): N39.0 - Urinary tract infection, site not specified Status: Acute Subjective Subjective Date/Time Seen: 09/24/22 11:40 Interval history: urine clear overnight. no clots or pain, Review of Systems Cardiovascular: Cardiovascular: Reports no additional cardiovascular complaints and Denies chest pain Respiratory: Respiratory: Reports no additional respiratory complaints Gastrointestinal: Gastrointestinal: Denies abdominal pain, Denies nausea and Denies vomiting Genitourinary: Genitourinary: Reports as per HPI, Reports hematuria, Reports oliguria, Denies dysuria, Denies flank pain, Denies urinary frequency, Reports urinary hesitancy, Denies urinary incontinence and Denies urinary urgency Neurologic: Reports system reviewed and no additional complaints, except as documented Exam Const: General: cooperative, healthy appearing, comfortable and no acute distress Orientation/consciousness: oriented to person, oriented to place and oriented to time HENMT: Head: normocephalic and atraumatic Eyes: General: appearance normal, both eyes and all related structures Resp: Effort & Inspection: normal respiratory effort, able to speak in complete sentences and no audible wheezes Cardio: Rate: regular rate GI: Inspection: normal to inspection and non-distended : General: Yes bladder normal to inspection, No CVA tenderness and Yes no CVA tenderness Urinary Catheter: Urinary Catheter: patent and draining and urine clear Back/Spine/Pelvis: Back: no CVA tenderness and No CVA tenderness Skin: General skin exam: normal color Neuro: General: oriented to person, oriented to place and oriented to time Extrem: Right lower extremity: no edema Left lower extremity: no edema Objective Data Vital Signs Vital Signs: Vital Signs - 24 hr 09/23/22 13:52 09/23/22 17:58 09/23/22 18:02 Temperature 36.9 C Pulse Rate 64 70 70 Respiratory Rate 16 Blood Pressure 118/61 Pulse Oximetry 100 Oxygen Delivery 07/29/23 20:00 09/23/22 22:00 09/24/22 06:00 Temperature 36.4 C 36.2 C L Pulse Rate 70 72 74 Respiratory Rate 16 21 H 21 H Blood Pressure 103/54 L 108/57 L Pulse Oximetry 100 100 100 Oxygen Delivery Room Air 09/24/22 08:16 09/24/22 08:18 09/24/22 09:31 Temperature 36.6 C Pulse Rate 74 70 Respiratory Rate 16 Blood Pressure 103/67 Pulse Oximetry 100 Oxygen Delivery Room Air 09/24/22 09:20 09/24/22 11:33 Temperature 36.4 C Pulse Rate 68 Respiratory Rate 17 Blood Pressure 106/55 L Pulse Oximetry 96 Oxygen Delivery Room Air Intake/Output Intake/Output: Intake & Output 09/21/22 09/22/22 09/23/22 09/24/22 23:59 23:59 23:59 23:59 Intake Total 1590 1080 240 Output Total 8859 5504 1000 Balance -4010 -575 -760 Meds/Results Medications: Active Medications Generic Name Dose Route Start Last Admin Trade Name Chelsey PRN Reason Stop Dose Admin Allopurinol 100 mg 09/23/22 09:00 09/24/22 08:17 Allopurinol 100 Mg Tablet PO 100 mg DAILY OSIEL Administration Aspirin 81 mg 09/23/22 09:00 09/24/22 08:17 Aspirin 81 Mg Enteric Tablet PO 81 mg QAM OSIEL Administration Atorvastatin Calcium 20 mg 09/23/22 09:00 09/24/22 08:18 Atorvastatin 20 Mg Tablet PO 20 mg DAILY OSIEL Administration Carvedilol 1.56 mg 09/22/22 13:00 09/24/22 08:18 Carvedilol 1.56 Mg Tablet PO 1.56 mg TID OSIEL Administration Dextrose 12.5 gm 09/23/22 13:59 Dextrose 50% 25 Gm/50 Ml Syringe IV PUSH P
[2022-09-24 12:11] LABS: Glucose Point of Care 159 mg/dl (65-105)
--- NOTE | 2022-09-24 14:33 | PM.IMPN ---
Progress Note: A&P Assessment and Plan (1) Hematuria: Qualifiers: Hematuria type: gross Qualified Code(s): R31.0 - Gross hematuria Code(s): R31.9 - Hematuria, unspecified Status: Acute Assessment and Plan: ED-[facility] narrative: Patient 87-year-old gentleman who presents the emergency department with chief complaint of hematuria.? Patient reports that he is on aspirin and recently had a catheter removed patient reports that this evening he tried to urinate and had bright red blood coming from the tip of his penis the patient reports that he has had continual bleeding even after he stopped urinating patient reports no trauma reports that he has some irritation whenever he urinates patient denies fever denies flank pain. Patient states there was no pain, denies any abdominal pain nausea or vomiting fever or chills, patient was seen by urologist patient had a cystoscopy that showed patient has enlarged prostate and there was oozing of the blood, it was cauterized which did stop the bleeding, patient just returned from the surgery and still somnolent, will continue to monitor continue check H&H, 09/23/2022: Patient presented with gross hematuria. Recent history of the same underlying history of cirrhosis with GI bleed with rectal versus hypertension hyperlipidemia BPH history of diabetes on oral hypoglycemic agent. Coronary artery disease status post stents in 2015 and 2018 history of kidney stones and gout. Recent admission for DKA. A1c 10.1 discharged on insulin. Urology was consulted completed antibiotic course with the suspected etiology for his hematuria. Nelson catheter to continue per Urology recommendation which was recently discontinued. Creatinine of 2.6 on admission. Urology consulted irrigation was started however unsuccessful hence taken to the OR for cystoscopy and clot evacuation which was performed on 09/22/2022 also had cauterization of the prostatic urethra at the areas of oozing. He was discharged on insulin however he does not seem to be on insulin anymore. Will check his A1c 09/24/2022:Patient presented with gross hematuria. Recent history of the same underlying history of cirrhosis with GI bleed with rectal versus hypertension hyperlipidemia BPH history of diabetes on oral hypoglycemic agent. Coronary artery disease status post stents in 2015 and 2018 history of kidney stones and gout. Recent admission for DKA. A1c 10.1 discharged on insulin. Urology was consulted completed antibiotic course with the suspected etiology for his hematuria. Nelson catheter to continue per Urology recommendation which was recently discontinued. Creatinine of 2.6 on admission. Urology consulted irrigation was started however unsuccessful hence taken to the OR for cystoscopy and clot evacuation which was performed on 09/22/2022 also had cauterization of the prostatic urethra at the areas of oozing. Hematuria has now resolved. Continue Nelson and DC on Nelson per Urology recommendation. He was discharged on insulin however he is not on any insulin anymore. A1c came back at 8.0. On Jardiance and will continue same. (2) Generalized weakness: Code(s): R53.1 - Weakness Status: Acute Assessment and Plan: Most likely secondary to anemia, once clinically stable patient will benefit from physical therapy (3) Thrombocytopenia: Code(s): D69.6 - Thrombocytopenia, unspecified Status: Acute Assessment and Plan: Chronic and improved Subjective Date/time seen: 09/24/22 14:33 Interval history: No overnight events. H&H is stable. No new complaints. No hematuria. Review of Systems Review of Systems: All systems reviewed & are unremarkable except as noted in HPI and below Exam Narrative: Elderly frail Patient is comfortable, NAD HEENT: eyes are clear and none icteric LUNGS: Normal respiratory effort ABD: Not distended Lower extremities: no edema SKIN: nonjaundiced Neuro: g
[2022-09-24 17:23] LABS: Glucose Point of Care 166 mg/dl (65-105)
[2022-09-24 18:07] LABS: Anion Gap 7 mmol/L (8-16); Blood Urea Nitrogen 44 mg/dL (9-20); Calcium 7.8 mg/dL (8.4-10.2); Carbon Dioxide 18 mmol/L (22-30); Chloride 110 mmol/L (98-107); Estimated CRCL calculation 20 ml/min; Estimated Glomerular Filt Rate 28; Glucose 154 mg/dL (65-110); Potassium 3.6 mmol/L (3.4-5.0); Sodium 135 mmol/L (137-145)
[2022-09-24 22:06] LABS: Glucose Point of Care 225 mg/dl (65-105)
[2022-09-25 05:21] VITALS: BP 117/63; PULSE 75; RESP 19; TEMP 36.4; O2SAT 100
[2022-09-25 05:36] LABS: Magnesium 1.5 mg/dL (1.6-2.3)
[2022-09-25 05:45] LABS: Hematocrit 22.3 % (42.0-52.0); Hemoglobin 7.2 g/dL (14.0-18.0); Immature Platelet Fraction Pct 2.8 % (0.9-11.2); Mean Corpuscular HGB Conc 32.3 g/dl (32-36); Mean Corpuscular Hemoglobin 32.1 pg (26-34); Mean Corpuscular Volume 99.6 fl (80-100); Mean Platelet Volume 11.2 fl (7.4-10.4); Platelet Count Result 56 k/mm3 (150-375); Red Blood Count 2.24 M/mm3 (4.6-6.20); Red Cell Distribution Width 17.2 % (11.5-14.5); White Blood Count 5.2 K/mm3 (4.5-10.0)
[2022-09-25 08:52] LABS: Glucose Point of Care 152 mg/dl (65-105)
[2022-09-25] MEDS: EMPAGLIFLOZIN 10 MG TABLET PO (09:10)
[2022-09-25 09:11] VITALS: PULSE 84
[2022-09-25] MEDS: carvediloL 1.56 MG TABLET PO ×3 (09:11→17:16)
[2022-09-25] MEDS: FOLIC ACID 1 MG TABLET PO (09:11)
[2022-09-25] MEDS: TAMSULOSIN HCL 0.4 MG CAPSULE 0.8 MG PO ×2 (09:13→17:16)
[2022-09-25] MEDS: allopurinoL 100 MG TABLET PO (09:13)
[2022-09-25] MEDS: FERROUS SULFATE DRIED 142 MG TABCR PO (09:13)
[2022-09-25] MEDS: ATORVASTATIN 20 MG TABLET PO (09:13)
[2022-09-25] MEDS: FINASTERIDE 5 MG TABLET PO (09:13)
[2022-09-25] MEDS: PANTOPRAZOLE 40 MG TABLET PO (09:13)
[2022-09-25] MEDS: ASPIRIN 81 MG ENTERIC TABLET PO (09:15)
[2022-09-25] MEDS: MAGNESIUM SULF 1 GM/D5W 100 ML 1 GM/100 ML BAG IVPB (09:16)
[2022-09-25 10:00] LABS: Anion Gap 4 mmol/L (8-16); Blood Urea Nitrogen 47 mg/dL (9-20); Calcium 7.9 mg/dL (8.4-10.2); Carbon Dioxide 17 mmol/L (22-30); Chloride 112 mmol/L (98-107); Estimated CRCL calculation 20 ml/min; Estimated Glomerular Filt Rate 28; Glucose 173 mg/dL (65-110); Potassium 3.9 mmol/L (3.4-5.0); Sodium 133 mmol/L (137-145)
[2022-09-25 12:10] LABS: Glucose Point of Care 234 mg/dl (65-105)
--- NOTE | 2022-09-25 13:02 | WPDUROPN2 ---
Progress Note: A&P Assessment and Plan (1) Hematuria: Qualifiers: Hematuria type: gross Qualified Code(s): R31.0 - Gross hematuria Code(s): R31.9 - Hematuria, unspecified Status: Acute Assessment and Plan: Resolved, CBI turned off. If it remains clear, ok to discharge home with soler to f/u in 1-2 weeks for voiding trial in the office. (2) BPH (benign prostatic hyperplasia): Code(s): N40.0 - Benign prostatic hyperplasia without lower urinary tract symptoms Status: Acute Assessment and Plan: Continue Finasteride and Tamsulosin s/p discharge. Subjective Subjective Date/Time Seen: 09/25/22 13:02 Patient doing very well on CBI, urine is clear on a slow drip. I turned CBI off. He continues on Finasteride and Tamsulosin. Finasteride was added during this admission. He has no complaints at this time and is afebrile. Post Op day: 3 Review of Systems Cardiovascular: Cardiovascular: Denies chest pain Respiratory: Respiratory: Reports no additional respiratory complaints Gastrointestinal: Gastrointestinal: Denies abdominal pain, Denies nausea and Denies vomiting Genitourinary: Genitourinary: Denies hematuria, Denies dysuria, Denies flank pain, Denies urinary frequency, Denies urinary hesitancy, Denies urinary incontinence and Denies urinary urgency Exam Const: General: cooperative and comfortable Resp: Effort & Inspection: normal respiratory effort GI: GI Palp: Yes Soft to palpation and Yes Tenderness to palpation present (GI) : General: Yes no CVA tenderness Urinary Catheter: Urinary Catheter: patent and draining and urine clear Extrem: Right lower extremity: no edema Left lower extremity: no edema Objective Data Vital Signs Vital Signs: Vital Signs - 24 hr 09/24/22 14:29 09/24/22 14:15 09/24/22 13:43 Temperature 97.5 F L Pulse Rate 74 70 Respiratory Rate 16 Blood Pressure 114/54 L Pulse Oximetry 100 90 Oxygen Delivery Room Air 09/24/22 18:26 09/24/22 22:00 09/24/22 20:00 Temperature 97.1 F L Pulse Rate 74 75 75 Respiratory Rate 17 17 Blood Pressure 115/59 L Pulse Oximetry 100 100 Oxygen Delivery Room Air 09/25/22 05:21 09/25/22 09:11 09/25/22 08:00 Temperature 97.6 F Pulse Rate 75 84 Respiratory Rate 19 Blood Pressure 117/63 Pulse Oximetry 100 Oxygen Delivery Room Air Intake/Output Intake/Output: Intake & Output 09/22/22 09/23/22 09/24/22 09/25/22 23:59 23:59 23:59 23:59 Intake Total 1590 1080 800 540 Output Total 5600 1655 1750 450 Balance -4015 -570 -950 90 Meds/Results Medications: Active Medications Generic Name Dose Route Start Last Admin Trade Name Freq PRN Reason Stop Dose Admin Allopurinol 100 mg 09/23/22 09:00 09/25/22 09:13 Allopurinol 100 Mg Tablet PO 100 mg DAILY OSIEL Administration Aspirin 81 mg 09/23/22 09:00 09/25/22 09:15 Aspirin 81 Mg Enteric Tablet PO 81 mg QAM OSIEL Administration Atorvastatin Calcium 20 mg 09/23/22 09:00 09/25/22 09:13 Atorvastatin 20 Mg Tablet PO 20 mg DAILY OSIEL Administration Carvedilol 1.56 mg 09/22/22 13:00 09/25/22 09:11 Carvedilol 1.56 Mg Tablet PO 1.56 mg TID OSIEL Administration Dextrose 12.5 gm 09/23/22 13:59 Dextrose 50% 25 Gm/50 Ml Syringe IV PUSH PRN PRN Hypoglycemia Protocol Empagliflozin 10 mg 09/23/22 09:00 09/25/22 09:10 Empagliflozin 10 Mg Tablet PO 10 mg DAILY OSIEL Administration Ferrous Sulfate 142 mg 09/23/22 08:00 09/25/22 09:13 Ferrous Sulfate Dried 142 Mg Tabcr PO 142 mg DAILY@0800 OSIEL Administration Finasteride 5 mg 09/23/22 09:00 09/25/22 09:13 Finasteride 5 Mg Tablet PO 5 mg QAM OSIEL Administration Folic Acid 1 mg 09/23/22 09:00 09/25/22 09:11 Folic Acid 1 Mg Tablet PO 1 mg DAILY OSIEL Administration Glucagon 1 mg 09/23/22 13:59 Glucagon For Inj 1 Mg Vial IM PRN PRN Hypoglycemia Prot
[2022-09-25 13:09] VITALS: PULSE 81
[2022-09-25 14:00] VITALS: BP 124/62; PULSE 82; RESP 17; TEMP 36.7; O2SAT 100
--- NOTE | 2022-09-25 15:21 | PM.IMPN ---
Progress Note: A&P Assessment and Plan (1) Hematuria: Qualifiers: Hematuria type: gross Qualified Code(s): R31.0 - Gross hematuria Code(s): R31.9 - Hematuria, unspecified Status: Acute Assessment and Plan: ED-[facility] narrative: Patient 87-year-old gentleman who presents the emergency department with chief complaint of hematuria.? Patient reports that he is on aspirin and recently had a catheter removed patient reports that this evening he tried to urinate and had bright red blood coming from the tip of his penis the patient reports that he has had continual bleeding even after he stopped urinating patient reports no trauma reports that he has some irritation whenever he urinates patient denies fever denies flank pain. Patient states there was no pain, denies any abdominal pain nausea or vomiting fever or chills, patient was seen by urologist patient had a cystoscopy that showed patient has enlarged prostate and there was oozing of the blood, it was cauterized which did stop the bleeding, patient just returned from the surgery and still somnolent, will continue to monitor continue check H&H, 09/23/2022: Patient presented with gross hematuria. Recent history of the same underlying history of cirrhosis with GI bleed with rectal versus hypertension hyperlipidemia BPH history of diabetes on oral hypoglycemic agent. Coronary artery disease status post stents in 2015 and 2018 history of kidney stones and gout. Recent admission for DKA. A1c 10.1 discharged on insulin. Urology was consulted completed antibiotic course with the suspected etiology for his hematuria. Nelson catheter to continue per Urology recommendation which was recently discontinued. Creatinine of 2.6 on admission. Urology consulted irrigation was started however unsuccessful hence taken to the OR for cystoscopy and clot evacuation which was performed on 09/22/2022 also had cauterization of the prostatic urethra at the areas of oozing. He was discharged on insulin however he does not seem to be on insulin anymore. Will check his A1c 09/24/2022:Patient presented with gross hematuria. Recent history of the same underlying history of cirrhosis with GI bleed with rectal versus hypertension hyperlipidemia BPH history of diabetes on oral hypoglycemic agent. Coronary artery disease status post stents in 2015 and 2018 history of kidney stones and gout. Recent admission for DKA. A1c 10.1 discharged on insulin. Urology was consulted completed antibiotic course with the suspected etiology for his hematuria. Nelson catheter to continue per Urology recommendation which was recently discontinued. Creatinine of 2.6 on admission. Urology consulted irrigation was started however unsuccessful hence taken to the OR for cystoscopy and clot evacuation which was performed on 09/22/2022 also had cauterization of the prostatic urethra at the areas of oozing. Hematuria has now resolved. Continue Nelson and DC on Nelson per Urology recommendation. He was discharged on insulin however he is not on any insulin anymore. A1c came back at 8.0. On Jardiance and will continue same. 09/25/2022:Patient presented with gross hematuria. Recent history of the same underlying history of cirrhosis with GI bleed with rectal varicess hypertension hyperlipidemia BPH history of diabetes on oral hypoglycemic agent. Coronary artery disease status post stents in 2016 and 2018 history of kidney stones and gout. Recent admission for DKA. A1c 10.1 discharged on insulin. Urology was consulted completed antibiotic course with the suspected etiology for his hematuria. Nelson catheter to continue per Urology recommendation which was recently discontinued. Creatinine of 2.6 on admission. Urology consulted irrigation was started however unsuccessful hence taken to the OR for cystoscopy and clot evacuation which was performed on 09/22/2022 also had cauterization of the prostatic urethra at the areas of oozing. Hematuria
[2022-09-25 16:55] LABS: Glucose Point of Care 198 mg/dl (65-105)
[2022-09-25 17:16] VITALS: PULSE 80
[2022-09-25 19:18] LABS: Anion Gap 9 mmol/L (8-16); Blood Urea Nitrogen 45 mg/dL (9-20); Calcium 7.8 mg/dL (8.4-10.2); Carbon Dioxide 14 mmol/L (22-30); Chloride 109 mmol/L (98-107); Estimated CRCL calculation 20 ml/min; Estimated Glomerular Filt Rate 28; Glucose 159 mg/dL (65-110); Potassium 3.7 mmol/L (3.4-5.0); Sodium 132 mmol/L (137-145)
[2022-09-25 21:03] VITALS: BP 121/66; PULSE 82; RESP 18; TEMP 36.1; O2SAT 99
[2022-09-26] VITALS (9 sets, daily range): BP systolic 111; BP diastolic 57–58; PULSE 72–80; RESP 16–18; TEMP 36.1–36.4; O2SAT 94–100
[2022-09-26 04:00] LABS: Glucose Point of Care 296 mg/dl (65-105)
[2022-09-26 05:34] LABS: Hematocrit 22.4 % (42.0-52.0); Hemoglobin 7.3 g/dL (14.0-18.0); Immature Platelet Fraction Pct 2.9 % (0.9-11.2); Mean Corpuscular HGB Conc 32.6 g/dl (32-36); Mean Corpuscular Hemoglobin 32.6 pg (26-34); Mean Platelet Volume 11.3 fl (7.4-10.4); Platelet Count Result 64 k/mm3 (150-375); Red Blood Count 2.24 M/mm3 (4.6-6.20); Red Cell Distribution Width 17.3 % (11.5-14.5); White Blood Count 4.7 K/mm3 (4.5-10.0)
[2022-09-26 05:42] LABS: Magnesium 1.8 mg/dL (1.6-2.3)
--- NOTE | 2022-09-26 06:17 | WPDUROPN2 ---
Progress Note: A&P Assessment and Plan (1) Hematuria: Qualifiers: Hematuria type: gross Qualified Code(s): R31.0 - Gross hematuria Code(s): R31.9 - Hematuria, unspecified Status: Acute Assessment and Plan: Urine remains clear. Discharge with indwelling catheter is fine from our standpoint. I will arrange for outpatient urodynamics and voiding trial within 1-2 weeks. Our office will contact the patient Plan Subjective Subjective Date/Time Seen: 09/26/22 06:17 Interval history: Comfortable, urine clear overnight Review of Systems Cardiovascular: Cardiovascular: Denies chest pain, Denies lightheadedness, Denies palpitations and Denies dyspnea Respiratory: Respiratory: Denies dyspnea Gastrointestinal: Gastrointestinal: Denies diarrhea, Denies nausea and Denies vomiting Genitourinary: Genitourinary: Denies hematuria and Denies dysuria Endocrine: Endocrine: Denies palpitations Exam Const: General: no acute distress Resp: Effort & Inspection: normal respiratory effort GI: Inspection: non-distended GI Palp: No abdominal tenderness and No Guarding due to palpation present (GI) Auscultation: normal bowel sounds Urinary Catheter: Urinary Catheter: patent and draining and urine clear Objective Data Vital Signs Vital Signs: Vital Signs - 24 hr 09/25/22 09:11 09/25/22 08:00 09/25/22 13:09 Temperature Pulse Rate 84 81 Respiratory Rate Blood Pressure Pulse Oximetry Oxygen Delivery Room Air 09/25/22 14:00 09/25/22 17:16 09/25/22 21:03 Temperature 98.1 F 97.0 F L Pulse Rate 82 80 82 Respiratory Rate 17 18 Blood Pressure 124/62 121/66 Pulse Oximetry 100 99 Oxygen Delivery 09/26/22 05:07 Temperature 96.9 F L Pulse Rate 76 Respiratory Rate 18 Blood Pressure 111/58 L Pulse Oximetry 100 Oxygen Delivery Intake/Output Intake/Output: Intake & Output 09/23/22 09/24/22 09/25/22 09/26/22 23:59 23:59 23:59 23:59 Intake Total 1070 512 3010 340 Output Total 1655 6690 1265 900 Balance -575 950 105 -560 Meds/Results Medications: Active Medications Generic Name Dose Route Start Last Admin Trade Name Freq PRN Reason Stop Dose Admin Allopurinol 100 mg 09/23/22 09:00 09/25/22 09:13 Allopurinol 100 Mg Tablet PO 100 mg DAILY OSIEL Administration Aspirin 81 mg 09/23/22 09:00 09/25/22 09:15 Aspirin 81 Mg Enteric Tablet PO 81 mg QAM OSIEL Administration Atorvastatin Calcium 20 mg 09/23/22 09:00 09/25/22 09:13 Atorvastatin 20 Mg Tablet PO 20 mg DAILY OSIEL Administration Carvedilol 1.56 mg 09/22/22 13:00 09/25/22 17:16 Carvedilol 1.56 Mg Tablet PO 1.56 mg TID OSIEL Administration Dextrose 12.5 gm 09/23/22 13:59 Dextrose 50% 25 Gm/50 Ml Syringe IV PUSH PRN PRN Hypoglycemia Protocol Empagliflozin 10 mg 09/23/22 09:00 09/25/22 09:10 Empagliflozin 10 Mg Tablet PO 10 mg DAILY OSIEL Administration Ferrous Sulfate 142 mg 09/23/22 08:00 09/25/22 09:13 Ferrous Sulfate Dried 142 Mg Tabcr PO 142 mg DAILY@0800 OSIEL Administration Finasteride 5 mg 09/23/22 09:00 09/25/22 09:13 Finasteride 5 Mg Tablet PO 5 mg QAM OSIEL Administration Folic Acid 1 mg 09/23/22 09:00 09/25/22 09:11 Folic Acid 1 Mg Tablet PO 1 mg DAILY OSIEL Administration Glucagon 1 mg 09/23/22 13:59 Glucagon For Inj 1 Mg Vial IM PRN PRN Hypoglycemia Protocol Glucose 15 gm 09/23/22 13:59 Glucose Oral Gel 15 Gm Of Glucse In 37.5 Gm Tube PO PRN PRN Hypoglycemia Protocol Dextrose 1,000 mls @ 100 mls/hr 09/23/22 13:59 Dextrose 5% 1,000 Ml IVPB PRN PRN Hypoglycemia Protocol Miconazole Nitrate 1 applic 09/22/22 09:00 09/25/22 19:47 Miconazole 2% Antifungal Ointment 56 Gm TOPICAL 1 applic Q12HR OSIEL Administration Ondansetron HCl 4 mg 09/22/22 05:29 Ondansetron Inj 4 Mg/2 Ml Vial IV PUSH Q4H PRN
--- NOTE | 2022-09-26 08:36 | P.CDI_ITS ---
CDI Query Clarification Request BMI 24.7 Nutritional Diagnostic Statement Severe protein calorie malnutrition related to chronic loss of appetite, taste changes as evidenced by intakes <75% needs> 1 month; weight loss -12%/6 months; NFPE findings of muscle wasting and fat loss. Please refer to the comprehensive nutrition assessment for further information. Please clarify severity of protein calorie malnutrition if known: * Mild * Moderate * Severe * Other/Unspecified <Jacqui Sagastume RN - Last Filed: 09/26/22 08:42> Provider Comments agree patient has severe protein calorie malnutrition related to chronic loss of appetite, taste changes as evidenced by intakes <75% needs> 1 month; weight loss -12%/6 months; NFPE findings of muscle wasting and fat loss. <Carleen Hsu MD - Last Filed: 10/14/22 19:06>
[2022-09-26] MEDS: carvediloL 1.56 MG TABLET PO ×3 (08:47→16:37)
[2022-09-26] MEDS: allopurinoL 100 MG TABLET PO (08:47)
[2022-09-26] MEDS: ATORVASTATIN 20 MG TABLET PO (08:48)
[2022-09-26] MEDS: TAMSULOSIN HCL 0.4 MG CAPSULE 0.8 MG PO ×2 (08:48→16:38)
[2022-09-26] MEDS: FERROUS SULFATE DRIED 142 MG TABCR PO (08:48)
[2022-09-26] MEDS: PANTOPRAZOLE 40 MG TABLET PO (08:48)
[2022-09-26] MEDS: FINASTERIDE 5 MG TABLET PO (08:48)
[2022-09-26] MEDS: ASPIRIN 81 MG ENTERIC TABLET PO (08:48)
[2022-09-26] MEDS: EMPAGLIFLOZIN 10 MG TABLET PO (08:48)
[2022-09-26] MEDS: FOLIC ACID 1 MG TABLET PO (08:48)
[2022-09-26 08:57] LABS: Glucose Point of Care 163 mg/dl (65-105)
--- NOTE | 2022-09-26 10:14 | PCOTNOTE ---
Attempted to see Patient at this time. Patient eating at an earlier attempt,m therapist came back and now Patient complaining of abdominal pain and must see the nurse right now. RN notified and aware. Therapy will attempt again at later time.
[2022-09-26 12:02] LABS: Glucose Point of Care 281 mg/dl (65-105)
[2022-09-26] MEDS: ACETAMINOPHEN 325 MG TABLET 650 MG PO (12:23)
--- NOTE | 2022-09-26 14:25 | P.PN_ITS ---
Progress Note: A&P Assessment and Plan (1) Hematuria: Qualifiers: Hematuria type: gross Qualified Code(s): R31.0 - Gross hematuria Code(s): R31.9 - Hematuria, unspecified Status: Acute Assessment and Plan: ED-[facility] narrative: Patient 87-year-old gentleman who presents the emergency department with chief complaint of hematuria.? Patient reports that he is on aspirin and recently had a catheter removed patient reports that this evening he tried to urinate and had bright red blood coming from the tip of his penis the patient reports that he has had continual bleeding even after he stopped urinating patient reports no trauma reports that he has some irritation whenever he urinates patient denies fever denies flank pain. Patient states there was no pain, denies any abdominal pain nausea or vomiting fever or chills, patient was seen by urologist patient had a cystoscopy that mikhail wed patient has enlarged prostate and there was oozing of the blood, it was cauterized which did stop the bleeding, patient just returned from the surgery and still somnolent, will continue to monitor continue check H&H, 09/23/2022: Patient presented with gross hematuria. Recent history of the same underlying history of cirrhosis with GI bleed with rectal versus hypertension hyperlipidemia BPH history of diabetes on oral hypoglycemic agent. Coronary artery disease status post stents in 2015 and 2018 history of kidney stones and gout. Recent admission for DKA. A1c 10.1 discharged on insulin. Urology was consulted completed antibiotic course with the suspected etiology for his hematuria. Nelson catheter to continue per Urology recommendation which was recently discontinued. Creatinine of 2.6 on admission. Urology consulted irrigation was started however unsuccessful hence taken to the OR for cystoscopy and clot evacuation which was performed on 09/22/2022 also had cauterization of the prostatic urethra at the areas of oozing. He was discharged on insulin however he does not seem to be on insulin anymore. Will check his A1c 09/24/2022:Patient presented with gross hematuria. Recent history of the same underlying history of cirrhosis with GI bleed with rectal versus hypertension hyperlipidemia BPH history of diabetes on oral hypoglycemic agent. Coronary artery disease status post stents in 2015 and 2018 history of kidney stones and gout. Recent admission for DKA. A1c 10.1 discharged on insulin. Urology was consulted completed antibiotic course with the suspected etiology for his hematuria. Nelson catheter to continue per Urology recommendation which was recently discontinued. Creatinine of 2.6 on admission. Urology consulted irrigation was started however unsuccessful hence taken to the OR for cystoscopy and clot evacuation which was performed on 09/22/2022 also had cauterization of the prostatic urethra at the areas of oozing. Hematuria has now resolved. Continue Nelson and DC on Nelson per Urology recommendation. He was discharged on insulin however he is not on any insulin anymore. A1c came back at 8.0. On Jardiance and will continue same. 09/25/2022:Patient presented with gross hematuria. Recent history of the same underlying history of cirrhosis with GI bleed with rectal varicess hypertension hyperlipidemia BPH history of diabetes on oral hypoglycemic agent. Coronary artery disease status post stents in 2016 and 2018 history of kidney stones and gout. Recent admission for DKA. A1c 10.1 discharged on insulin. Urology was consulted completed antibiotic course with the suspected etiology for his hematuria. Nelson catheter to continue per Urology recommendation which was recently discontinued. Creatinine of 2.6 on admission. Urology consulted irrigati
[2022-09-26 16:45] LABS: Glucose Point of Care 217 mg/dl (65-105)
[2022-09-26 18:23] LABS: Anion Gap 2 mmol/L (8-16); Blood Urea Nitrogen 46 mg/dL (9-20); Calcium 7.9 mg/dL (8.4-10.2); Carbon Dioxide 18 mmol/L (22-30); Chloride 110 mmol/L (98-107); Estimated CRCL calculation 22 ml/min; Estimated Glomerular Filt Rate 32; Glucose 188 mg/dL (65-110); Potassium 3.8 mmol/L (3.4-5.0); Sodium 130 mmol/L (137-145)
[2022-09-26 21:03] LABS: Glucose Point of Care 229 mg/dl (65-105)
[2022-09-27 05:41] LABS: Hemoglobin 7.5 g/dL (14.0-18.0); Mean Corpuscular HGB Conc 32.6 g/dl (32-36); Mean Corpuscular Hemoglobin 32.5 pg (26-34); Mean Corpuscular Volume 99.6 fl (80-100); Mean Platelet Volume 11.1 fl (7.4-10.4); Platelet Count Result 63 k/mm3 (150-375); Red Blood Count 2.31 M/mm3 (4.6-6.20); Red Cell Distribution Width 17.4 % (11.5-14.5); White Blood Count 4.1 K/mm3 (4.5-10.0)
[2022-09-27 05:53] LABS: Magnesium 1.6 mg/dL (1.6-2.3)
[2022-09-27 05:56] VITALS: BP 105/50; PULSE 78; RESP 18; TEMP 36.3; O2SAT 100
--- NOTE | 2022-09-27 07:45 | WPDUROPN2 ---
Progress Note: A&P Assessment and Plan (1) Hematuria: Qualifiers: Hematuria type: gross Qualified Code(s): R31.0 - Gross hematuria Code(s): R31.9 - Hematuria, unspecified Status: Acute Assessment and Plan: Urine remains clear. Discharge with indwelling catheter is fine from our standpoint. I will arrange for outpatient urodynamics and voiding trial within 1-2 weeks. Our office will contact the patient 09/27/22 Urine remains clear. Home anytime from our standpoint. Outpatient urodynamics arrangements being made. Plan Subjective Subjective Date/Time Seen: 09/27/22 07:45 Interval history: No complaints Review of Systems Cardiovascular: Cardiovascular: Denies chest pain, Denies lightheadedness, Denies palpitations and Denies dyspnea Respiratory: Respiratory: Denies dyspnea Gastrointestinal: Gastrointestinal: Denies diarrhea, Denies nausea and Denies vomiting Genitourinary: Genitourinary: Denies hematuria and Denies dysuria Endocrine: Endocrine: Denies palpitations Exam Const: General: no acute distress Resp: Effort & Inspection: normal respiratory effort GI: Inspection: non-distended GI Palp: No abdominal tenderness and No Guarding due to palpation present (GI) Auscultation: normal bowel sounds Objective Data Vital Signs Vital Signs: Vital Signs - 24 hr 09/26/22 08:47 09/26/22 09:18 09/26/22 08:48 Temperature Pulse Rate 76 Respiratory Rate 18 Blood Pressure Pulse Oximetry 94 94 Oxygen Delivery Room Air Room Air 09/26/22 12:25 09/26/22 14:02 09/26/22 16:37 Temperature 97.6 F Pulse Rate 72 78 76 Respiratory Rate 16 Blood Pressure 111/58 L Pulse Oximetry 100 Oxygen Delivery 09/26/22 19:39 09/26/22 20:08 09/26/22 21:42 Temperature 97.5 F L Pulse Rate 80 Respiratory Rate 18 Blood Pressure 111/57 L Pulse Oximetry 99 99 Oxygen Delivery Room Air Room Air 09/27/22 05:56 Temperature 97.4 F L Pulse Rate 78 Respiratory Rate 18 Blood Pressure 105/50 L Pulse Oximetry 100 Oxygen Delivery Intake/Output Intake/Output: Intake & Output 09/24/22 09/25/22 09/26/22 09/27/22 23:59 23:59 23:59 23:59 Intake Total 800 1370 1500 240 Output Total 1750 1265 1650 900 Balance -950 156 -447 -820 Meds/Results Medications: Active Medications Generic Name Dose Route Start Last Admin Trade Name Chelsey PRN Reason Stop Dose Admin Acetaminophen 650 mg 09/26/22 10:42 09/26/22 12:23 Acetaminophen 325 Mg Tablet PO 650 mg Q6H PRN Administration Mild Pain (1-3) or Fever Allopurinol 100 mg 09/23/22 09:00 09/26/22 08:47 Allopurinol 100 Mg Tablet PO 100 mg DAILY OSIEL Administration Aspirin 81 mg 09/23/22 09:00 09/26/22 08:48 Aspirin 81 Mg Enteric Tablet PO 81 mg QAM OSIEL Administration Atorvastatin Calcium 20 mg 09/23/22 09:00 09/26/22 08:48 Atorvastatin 20 Mg Tablet PO 20 mg DAILY OSIEL Administration Carvedilol 1.56 mg 09/22/22 13:00 09/26/22 16:37 Carvedilol 1.56 Mg Tablet PO 1.56 mg TID OSIEL Administration Dextrose 12.5 gm 09/23/22 13:59 Dextrose 50% 25 Gm/50 Ml Syringe IV PUSH PRN PRN Hypoglycemia Protocol Empagliflozin 10 mg 09/23/22 09:00 09/26/22 08:48 Empagliflozin 10 Mg Tablet PO 10 mg DAILY OSIEL Administration Ferrous Sulfate 142 mg 09/23/22 08:00 09/26/22 08:48 Ferrous Sulfate Dried 142 Mg Tabcr PO 142 mg DAILY@0800 OSIEL Administration Finasteride 5 mg 09/23/22 09:00 09/26/22 08:48 Finasteride 5 Mg Tablet PO 5 mg QAM OSIEL Administration Folic Acid 1 mg 09/23/22 09:00 09/26/22 08:48 Folic Acid 1 Mg Tablet PO 1 mg DAILY OSIEL Administration Glucagon 1 mg 09/23/22 13:59 Glucagon For Inj 1 Mg Vial IM PRN PRN Hypoglycemia Protocol Glucose 15 gm 09/23/22 13:59 Glucose Oral Gel 15 Gm Of Glucse In 37.5 Gm Tube PO PRN PRN Hypoglycemia Protocol
[2022-09-27 08:29] VITALS: PULSE 76
[2022-09-27] MEDS: FINASTERIDE 5 MG TABLET PO (08:29)
[2022-09-27] MEDS: TAMSULOSIN HCL 0.4 MG CAPSULE 0.8 MG PO (08:29)
[2022-09-27] MEDS: ATORVASTATIN 20 MG TABLET PO (08:29)
[2022-09-27] MEDS: FERROUS SULFATE DRIED 142 MG TABCR PO (08:29)
[2022-09-27] MEDS: EMPAGLIFLOZIN 10 MG TABLET PO (08:29)
[2022-09-27] MEDS: allopurinoL 100 MG TABLET PO (08:29)
[2022-09-27] MEDS: PANTOPRAZOLE 40 MG TABLET PO (08:29)
[2022-09-27] MEDS: carvediloL 1.56 MG TABLET PO ×2 (08:29→15:00)
[2022-09-27] MEDS: ASPIRIN 81 MG ENTERIC TABLET PO (08:29)
[2022-09-27] MEDS: FOLIC ACID 1 MG TABLET PO (08:29)
[2022-09-27 08:47] LABS: Glucose Point of Care 165 mg/dl (65-105)
--- NOTE | 2022-09-27 11:27 | PCNFU ---
Nutrition Follow-Up Complete: Severe protein calorie malnutrition related to chronic loss of appetite, taste changes as evidenced by intakes <75% needs >1 month; weight loss -12%/6 months ; NFPE findings of muscle wasting and fat loss. Goal: Improve PO intake to at least 50% meals and supplements Maintain weight patient is progressing towards goal. We will continue current goal. Pt current nutrition is DB Last recorded weight is 71.7 kg. Bowel Motility:+Bm reported 09/27 Labs Reviewed:Hct 23.0, Hgb 7.5 Meds Noted:Protonix, Folic Acid Skin: WNL Additional Notes: Patient is tolerating a DBCC diet. Eating greater than 75% of meal. Diet supplements of Ensure Enlive being providing BID and Nutritional Ice cream BID. Agree with diet orders. Monitoring intakes, weights, labs, supplement tolerance, plan of care Follow up in 7 days
[2022-09-27 11:47] LABS: Glucose Point of Care 210 mg/dl (65-105)
--- NOTE | 2022-09-27 12:53 | PM.DS ---
DS: Admitting Diagnosis Discharge Date 09/27/2022 Admitting Diagnosis Hermaturia DS: Discharge Diagnosis Discharge Diagnosis (1) Hematuria: Qualifiers: Hematuria type: gross Qualified Code(s): R31.0 - Gross hematuria Code(s): R31.9 - Hematuria, unspecified Status: Acute Assessment and Plan: ED-[facility] narrative: Patient 87-year-old gentleman who presents the emergency department with chief complaint of hematuria.? Patient reports that he is on aspirin and recently had a catheter removed patient reports that this evening he tried to urinate and had bright red blood coming from the tip of his penis the patient reports that he has had continual bleeding even after he stopped urinating patient reports no trauma reports that he has some irritation whenever he urinates patient denies fever denies flank pain. Patient states there was no pain, denies any abdominal pain nausea or vomiting fever or chills, patient was seen by urologist patient had a cystoscopy that showed patient has enlarged prostate and there was oozing of the blood, it was cauterized which did stop the bleeding, patient just returned from the surgery and still somnolent, will continue to monitor continue check H&H, 09/23/2022: Patient presented with gross hematuria. Recent history of the same underlying history of cirrhosis with GI bleed with rectal versus hypertension hyperlipidemia BPH history of diabetes on oral hypoglycemic agent. Coronary artery disease status post stents in 2015 and 2017 history of kidney stones and gout. Recent admission for DKA. A1c 10.1 discharged on insulin. Urology was consulted completed antibiotic course with the suspected etiology for his hematuria. Nelson catheter to continue per Urology recommendation which was recently discontinued. Creatinine of 2.6 on admission. Urology consulted irrigation was started however unsuccessful hence taken to the OR for cystoscopy and clot evacuation which was performed on 09/22/2022 also had cauterization of the prostatic urethra at the areas of oozing. He was discharged on insulin however he does not seem to be on insulin anymore. Will check his A1c 09/24/2022:Patient presented with gross hematuria. Recent history of the same underlying history of cirrhosis with GI bleed with rectal versus hypertension hyperlipidemia BPH history of diabetes on oral hypoglycemic agent. Coronary artery disease status post stents in 2015 and 2018 history of kidney stones and gout. Recent admission for DKA. A1c 10.1 discharged on insulin. Urology was consulted completed antibiotic course with the suspected etiology for his hematuria. Nelson catheter to continue per Urology recommendation which was recently discontinued. Creatinine of 2.6 on admission. Urology consulted irrigation was started however unsuccessful hence taken to the OR for cystoscopy and clot evacuation which was performed on 09/22/2022 also had cauterization of the prostatic urethra at the areas of oozing. Hematuria has now resolved. Continue Nelson and DC on Nelson per Urology recommendation. He was discharged on insulin however he is not on any insulin anymore. A1c came back at 8.0. On Jardiance and will continue same. 09/25/2022:Patient presented with gross hematuria. Recent history of the same underlying history of cirrhosis with GI bleed with rectal varicess hypertension hyperlipidemia BPH history of diabetes on oral hypoglycemic agent. Coronary artery disease status post stents in 2015 and 2018 history of kidney stones and gout. Recent admission for DKA. A1c 10.1 discharged on insulin. Urology was consulted completed antibiotic course with the suspected etiology for his hematuria. Nelson catheter to continue per Urology recommendation which was recently discontinued. Creatinine of 2.6 on admission. Urology consulted irrigation was started however unsuccessful hence taken to the OR for cystoscopy and clot evacuation which was performed on
[2022-09-27 15:00] VITALS: PULSE 78
[2022-09-27 15:04] VITALS: BP 135/67; PULSE 86; RESP 18; TEMP 36.7; O2SAT 100
== END 2022-09-27 16:30 | DRG 717 ==
LOC: ANHED 05:24 → ANH2MED 05:45
PROVIDERS: Internal Medicine; Urology; Admitting Provider Internal Medicine; Emergency Provider Emergency Medicine; PCP Internal Medicine; Visit Provider Family Medicine
PROC: 0TCB8ZZ Extirpation of Matter from Bladder, Via Natural or Artificial Opening Endoscopic (ICD-10-PCS; CPT 52001; principal; 2022-09-22 19:30)
DX: N40.1 Benign prostatic hyperplasia with lower urinary tract symptoms (principal); E43 Unspecified severe protein-calorie malnutrition; D62 Acute posthemorrhagic anemia; N17.9 Acute kidney failure, unspecified; N39.0 Urinary tract infection, site not specified; R31.0 Gross hematuria; N18.9 Chronic kidney disease, unspecified; I12.9 Hypertensive chronic kidney disease with stage 1 through stage 4 chronic kidney disease, or unspecified chronic kidney disease; I25.10 Atherosclerotic heart disease of native coronary artery without angina pectoris; D69.6 Thrombocytopenia, unspecified; E78.5 Hyperlipidemia, unspecified; E13.22 Other specified diabetes mellitus with diabetic chronic kidney disease; K74.60 Unspecified cirrhosis of liver; M10.9 Gout, unspecified; Z79.82 Long term (current) use of aspirin; Z95.5 Presence of coronary angioplasty implant and graft; Z68.24 Body mass index [BMI] 24.0-24.9, adult
CPT/HCPCS: 36415; 74176; 80048; 80053; 81001; 82948; 83036; 83735; 85014; 85018; 85025; 85027; 85055; 85610; 85730; 86850; 86900; 86901; 97110; 97161; 97165; 99285; A9270; G0378; J0690; J2704; J3475; J7120

== ENCOUNTER 2022-09-27 17:03 | Inpatient (IN) | payer MEDICARE, SELFPAY ==
--- NOTE | ~2022-09-27 | CT_ITS ---
EXAMINATION: CT abdomen pelvis wo con DATE: 09/28/2022 13:35 INDICATION: Gross hematuria. TECHNIQUE: Computed tomography (CT) of the abdomen and pelvis was performed without intravenous contr ast. Automated exposure control and iterative reconstruction technique were employed. The dose-length product was 525.86 mGy-cm. COMPARISON: CT abdomen and pelvis 09/22/2022, 03/15/22 FINDINGS: The visualized portions of the lung bases demonstrate chronic reticular opacities and mild bronchiectasis. There are trace pleural effusions. The heart size is normal. There are coronary arter y calcifications. No pericardial effusion. The liver demonstrates surface nodularity, consistent with cirrhosis. There is moderate splenomegaly. Calcifications in the pancreas are consistent with chroni c pancreatitis. The adrenal glands and right kidney are normal. There is mild atrophy of left kidney. There are cysts in left kidney measuring up to 15 mm. The prostate is moderately enlarged. The bladd er is compressed by a Nelson catheter. There is diffuse bladder wall thickening. There is a bladder di verticulum on the left. There is a right inguinal hernia containing ascites. There is diverticulosis of the colon without evidence of diverticulitis. The appendix is normal. There is wall thickening of the cecum, likely interstitial edema. There is a moderate volume of ascites. There is calcified ather osclerosis of the aorta and many of the other arteries. There are no pathologically enlarged lymph no derrick. There is severe thoracic and lumbar spondylosis. IMPRESSION: 1. Cirrhosis of the liver with portal venous hypertension. 2. Moderate volume of ascites. 3. Chronic bladder wall thickening, likely secondary to chronic outlet obstruction. Reviewed, dictated and finalized at location L. IMPRESSION: 1. Cirrhosis of the liver with portal venous hypertension. 2. Moderate volume of ascites. 3. Chronic bladder wall thickening, likely secondary to chronic outlet obstruct ion.
[2022-09-27 17:20] VITALS: BMI 25.0
--- NOTE | 2022-09-27 17:21 | ADMGEN ---
This patient, Jaspal Ruggiero, was admitted to 2nd Floor Room 208-1. Patient/family oriented to hospital policies and general routines including ID bracelet, bed and alarms, visiting hours, pain management, procedures, bathroom and other care routines, personal items, smoking policy, room service/diet, and visiting hours. Information on how to activate the Rapid Response Team has been discussed. Patient/Family are encouraged to report perceived risks to care and to ask questions if they do not understand what they are told or what they should do.
[2022-09-27 17:42] VITALS: BP 105/72; PULSE 80; RESP 14; TEMP 36.5; O2SAT 98
--- NOTE | 2022-09-27 17:44 | PM.IMHP ---
H&P: HPI History of Present Illness Date/Time: 09/27/22 17:44 Chief Complaint: Debility Narrative: Mr. Ruggiero is an 87-year-old gentleman who present to the hospital for a swing bed admission after being seen at outside hospital for gross hematuria and having a cystoscopy and Nelson catheter placed. Patient had been seen for this same issue previously and had been admitted to swing bed after having a Nelson catheter placed. On previous admission it was thought the patient's hematuria was secondary to urinary tract infection and urinary retention from BPH. Patient was previously discharged from swing bed at this facility and was home for a short amount of time, was seen by urology and Nelson catheter was discontinued. Within the next 2 days after having Nelson catheter removed patient began having gross hematuria and was having trouble urinating secondary to blood clots and large amount of blood. Patient went to [facility] and Urology did evaluate patient. A CBI was initiated, and patient was taken for cystoscopy. During cystoscopy was noted that patient was having oozing from his prostatic urethra. The areas that were oozing were cauterized and patient continued with CBI. CBI was continued postoperatively and till urine was clear and then CBI was discontinued. Patient did have some yo urine noted post discontinuation of CBI, and he progressed to clear yellow urine. PT/OT did evaluate patient after CBI was discontinued and it was thought the patient would benefit from strengthening from PT and OT in swing bed setting. Patient was then transferred to this facility. Upon evaluation patient is resting in bed states he feels good and denies any complaints. Patient denies any chest pain, shortness of breath, dizziness, orthopnea, PND, or syncope. Patient states that when he initially started getting out of bed he was having some lightheadedness. Patient denies any pain at Nelson catheter site. Did discuss with patient home medications and patient states that he was checking his blood glucose levels 4 times daily and was taking the 15 units of Lantus insulin he was discharged on previously. Patient states that at home his blood glucose levels were well controlled and of the highest blood glucose he saw was approximately 160. Review of Systems Review of Systems: A 12 point review of systems was completed with patient all pertinent positive and negative per HPI the remainder are unremarkable. [facility] Past Medical History Medical History (Updated 09/28/22 @ 10:15 by Marie Moore APRN) Acute UTI (urinary tract infection) BPH (benign prostatic hyperplasia) CAD (coronary artery disease) Dehydration, mild Gout History of kidney stones Hyperglycemia due to diabetes mellitus Hyperlipidemia Hypertension Melena Viral syndrome Surgical History Surgical History H/O hernia repair H/O removal of cyst On his chest History of back surgery History of cardiac catheterization Stented coronary artery 2015, and 2018 Family History Family History Father Diabetes mellitus Heart disease Acute myocardial infarction Sibling Diabetes mellitus Social History Social History Social History: The patient lives with his has 2 Children. Patient is retired from [employer]. The patient stated he used to drink heavily but does not drink anymore. His is the durable power energy attorney for healthcare. Code status full code Smoking status: Former smoker Second hand tobacco smoke exposure: No Alcohol intake: former Drinks per week: 2 Substance use: former Substance use type: does not use Lack of Transportation: No Lack of Food: Never True Current Housing: I Have Housing Concerned About Future Housing: No Difficulty Paying Gas/Electric Bill
[2022-09-27] MEDS: TAMSULOSIN HCL 0.4 MG CAPSULE 0.8 MG PO (18:57)
[2022-09-27 20:00] VITALS: PULSE 80; RESP 14; O2SAT 98
[2022-09-27 20:24] LABS: Glucose Point of Care 198 mg/dl (65-105)
[2022-09-28] VITALS (7 sets, daily range): BP systolic 108–123; BP diastolic 62–72; PULSE 75–88; RESP 15–16; TEMP 36.2–36.6; O2SAT 98–100
[2022-09-28 05:43] LABS: Hematocrit 22.8 % (37.0-46.0); Hemoglobin 7.5 g/dL (12.4-15.3); Immature Platelet Fraction Pct 1.8 % (1.0-7.0); Mean Corpuscular HGB Conc 32.9 g/dL (32.0-36.0); Mean Corpuscular Hemoglobin 32.8 pg (27.0-31.0); Mean Corpuscular Volume 99.6 fL (78.0-102.0); Mean Platelet Volume 10.5 fl (8.7-11.0); Platelet Count Result 67 K/mm3 (150-420); Red Blood Count 2.29 M/mm3 (4.70-6.10); Red Cell Distribution Width 17.7 % (11.6-14.4); White Blood Count 3.9 K/mm3 (4.8-10.8)
[2022-09-28 05:49] LABS: Anion Gap 10 mmol/L (8-16); Blood Urea Nitrogen 53 mg/dL (7-18); Calcium 8.1 mg/dL (8.5-10.1); Carbon Dioxide 22 mmol/L (21-32); Chloride 109 mmol/L (98-108); Estimated CRCL calculation 22 ml/min; Estimated Glomerular Filt Rate 32; Glucose 177 mg/dL (70-99); Magnesium 1.6 mg/dL (1.8-2.4); Osmolality Calculated 310 mOsm/kg (285-295); Potassium 3.8 mmol/L (3.5-5.1); Sodium 141 mmol/L (136-145)
[2022-09-28 06:38] LABS: Band Neutrophils Percent 2 % (0-6); Eosinophils Absolute Manual 0.15 K/mm3 (0.02-0.5); Eosinophils Percent Manual 4 % (1-6); Lymphocytes Absolute Manual 0.66 K/mm3 (1.1-4.5); Lymphocytes Percent Manual 17 % (18-44); Monocytes Absolute Manual 0.23 K/mm3 (0.1-0.90); Monocytes Percent Manual 6 % (3-9); Neutrophils Absolute Manual 2.84 K/mm3 (1.3-6.7); Neutrophils Percent Manual 71 % (46-73); Total Cells Counted 100
[2022-09-28 06:39] LABS: Basophils Percent Manual 0 % (0-1); Platelet Estimate Decreased (Adequate)
[2022-09-28] MEDS: EMPAGLIFLOZIN 10 MG TABLET PO (09:51)
[2022-09-28] MEDS: TAMSULOSIN HCL 0.4 MG CAPSULE 0.8 MG PO ×2 (09:51→17:27)
[2022-09-28] MEDS: ASPIRIN 81 MG ENTERIC TABLET PO (09:51)
[2022-09-28] MEDS: allopurinoL 100 MG TABLET PO (09:51)
[2022-09-28] MEDS: PANTOPRAZOLE 40 MG TABLET PO (09:51)
[2022-09-28] MEDS: FOLIC ACID 1 MG TABLET PO (09:51)
[2022-09-28] MEDS: carvediloL 1.56 MG TABLET PO ×3 (09:51→17:27)
[2022-09-28] MEDS: FINASTERIDE 5 MG TABLET PO (09:51)
[2022-09-28] MEDS: ATORVASTATIN 10 MG TABLET 20 MG PO (09:51)
[2022-09-28] MEDS: INSULIN GLARGINE (*BKC) 1,000 UNITS/10 ML VIAL 15 UNITS SUB-Q (09:54)
[2022-09-28 12:01] LABS: Glucose Point of Care 244 mg/dl (65-105)
[2022-09-28] MEDS: INSULIN HUMAN LISPRO (*BKC) 1,000 UNITS/10 ML VIAL SUB-Q (12:04)
[2022-09-28 13:10] LABS: Hemoglobin 8.5 g/dL (12.4-15.3)
--- NOTE | 2022-09-28 13:15 | P.PNCROSS_ITS ---
Event Note Event Note Event Note: RN asked for provider to evaluate patient secondary to a change in patient's ur ine color. Patient was evaluated and urine is noted to have gross hematuria with multiple bone clots. Attempted to call Dr. Gallardo, but he is in operating room today so did speak with his nurse practitioner. His nurse practitioner recommends that the Nelson catheter be flushed and as long as it is draining for CBI to be initiated. Explained that we may not be able to do CBI at this establishment, but can not definitely flush catheter often if CBI is not available. Nurse practitioner for Dr. Gallardo stated that she will speak with Dr. Gallardo and attempt to get patient transferred to soon as possible. At this point in time she did request that patient have a CT of abdomen and pelvis without contrast to evaluate his bladder. Also stat hemoglobin hematocrit have been ordered to evaluate patient's blood counts. Awaiting return call from nurse practitioner.
--- NOTE | 2022-09-28 14:03 | PM.EVENT ---
Event Note Event Note Event Note: Spoke with nurse practitioner for Urology and after she viewed CT scan there is no clot burden noted in patient's bladder. Did discuss that after flushing the patient's Nelson catheter there was good return of urine and urine is now clearing up. Urology is recommending that catheter be flushed every 4-6 hours as needed for any hematuria and if he read began having gross hematuria again that they may need to be notified. At this time there is no need for transfer since patient's hemoglobin hematocrit actually went up and his Nelson catheter has cleared. Nurse practitioner also stated there is no need for CBI since the Nelson catheter is draining without any difficulty.
[2022-09-28 17:00] LABS: Glucose Point of Care 138 mg/dl (65-105)
[2022-09-28 20:30] LABS: Glucose Point of Care 209 mg/dl (65-105)
--- NOTE | 2022-09-29 06:24 | PC.NURSE ---
Pt's Nelson irrigated; catheter bag changed to ensure accurate assessment of output and urine appearance.
[2022-09-29 08:00] VITALS: BP 125/69; PULSE 73; RESP 16; TEMP 35.8; O2SAT 99
[2022-09-29 08:03] LABS: Glucose Point of Care 124 mg/dl (65-105)
[2022-09-29] MEDS: PANTOPRAZOLE 40 MG TABLET PO (09:10)
[2022-09-29 09:47] VITALS: PULSE 68
[2022-09-29] MEDS: INSULIN GLARGINE (*BKC) 1,000 UNITS/10 ML VIAL 15 UNITS SUB-Q (09:47)
[2022-09-29] MEDS: carvediloL 1.56 MG TABLET PO ×3 (09:47→18:01)
[2022-09-29] MEDS: TAMSULOSIN HCL 0.4 MG CAPSULE 0.8 MG PO ×2 (09:48→18:02)
[2022-09-29] MEDS: ATORVASTATIN 10 MG TABLET 20 MG PO (09:48)
[2022-09-29] MEDS: FINASTERIDE 5 MG TABLET PO (09:48)
[2022-09-29] MEDS: FOLIC ACID 1 MG TABLET PO (09:49)
[2022-09-29] MEDS: MAGNESIUM OXIDE 400 MG TABLET PO (09:49)
[2022-09-29] MEDS: ASPIRIN 81 MG ENTERIC TABLET PO (09:49)
[2022-09-29] MEDS: allopurinoL 100 MG TABLET PO (09:49)
[2022-09-29] MEDS: FERROUS SULFATE 325 MG TABLET DR PO (09:50)
[2022-09-29] MEDS: EMPAGLIFLOZIN 10 MG TABLET PO (11:16)
[2022-09-29 11:50] LABS: Glucose Point of Care 212 mg/dl (65-105)
[2022-09-29] MEDS: INSULIN HUMAN LISPRO (*BKC) 1,000 UNITS/10 ML VIAL SUB-Q (12:00)
--- NOTE | 2022-09-29 12:51 | PM.EVENT ---
Event Note Event Note Event Note: patient continues to have blood in his line periodically currently dark blood noted not occluded with blood moved to the Line had pink tinged in urine noted will continue to monitor and air gait as indicated
[2022-09-29 13:42] VITALS: PULSE 72
--- NOTE | 2022-09-29 13:59 | PC.NURSE ---
Pt's folry cath was irrigated with 200 of sterile saline at 1030. Irrigated easily, pink urine with several clots. Pt tolerated well.
[2022-09-29 16:00] VITALS: BP 118/59; PULSE 77; RESP 18; TEMP 36.3; O2SAT 100
[2022-09-29 16:58] LABS: Glucose Point of Care 117 mg/dl (65-105)
[2022-09-29 18:01] VITALS: PULSE 77
[2022-09-29 20:20] LABS: Glucose Point of Care 160 mg/dl (65-105)
[2022-09-30] VITALS (7 sets, daily range): BP systolic 110–124; BP diastolic 64–75; PULSE 70–71; RESP 14–18; TEMP 36.4–36.6; O2SAT 99–100
--- NOTE | 2022-09-30 01:00 | PC.NURSE ---
Patient's soler catheter irrigated without difficulty. Urine pink with multiple small clots noted. Patient tolerated well.
--- NOTE | 2022-09-30 06:48 | PC.NURSE ---
Irrigated patient's soler catheter. Urine getting darker as the night progressed. Urine dark yo @ this time. Patient tolerated well.
[2022-09-30 07:59] LABS: Glucose Point of Care 110 mg/dl (65-105)
[2022-09-30] MEDS: TAMSULOSIN HCL 0.4 MG CAPSULE 0.8 MG PO ×2 (09:05→17:04)
[2022-09-30] MEDS: FERROUS SULFATE 325 MG TABLET DR PO (09:05)
[2022-09-30] MEDS: FINASTERIDE 5 MG TABLET PO (09:06)
[2022-09-30] MEDS: MAGNESIUM OXIDE 400 MG TABLET PO (09:06)
[2022-09-30] MEDS: FOLIC ACID 1 MG TABLET PO (09:07)
[2022-09-30] MEDS: allopurinoL 100 MG TABLET PO (09:07)
[2022-09-30] MEDS: ATORVASTATIN 10 MG TABLET 20 MG PO (09:07)
[2022-09-30] MEDS: ASPIRIN 81 MG ENTERIC TABLET PO (09:07)
[2022-09-30] MEDS: PANTOPRAZOLE 40 MG TABLET PO (09:07)
[2022-09-30] MEDS: carvediloL 1.56 MG TABLET PO ×3 (09:08→17:04)
[2022-09-30] MEDS: EMPAGLIFLOZIN 10 MG TABLET PO (09:09)
[2022-09-30] MEDS: INSULIN GLARGINE (*BKC) 1,000 UNITS/10 ML VIAL 15 UNITS SUB-Q (09:11)
--- NOTE | 2022-09-30 10:42 | PC.NURSE ---
urinary catheter flushed with 60 cc's of sterile NS.
[2022-09-30 10:57] LABS: Hematocrit 22.9 % (37.0-46.0); Hemoglobin 7.3 g/dL (12.4-15.3)
--- NOTE | 2022-09-30 11:29 | P.PNCROSS_ITS ---
Event Note Event Note Event Note: patient continues to have dark red blood noted in his tubing there is no clots noted and he is being area gated q.4 to 6 hours. Patient has been very tired resting says that he is not feeling very well labs redrawn today hemoglobin was 7.3 currently the other labs are pending patient has remained afebrile causing placed rodent control worker urologist to Rich sure that there is nothing else that they are wanting completed. I have typed and crossed patient just in case he is going to need blood we will recheck his hemoglobin level in the next 6 hours patient will continue with PT in the room sleeping he has slept a lot lately.
[2022-09-30 11:39] LABS: Hemoglobin 7.3 g/dL (12.4-15.3); Immature Platelet Fraction Pct 2.4 % (1.0-7.0); Mean Corpuscular HGB Conc 31.7 g/dL (32.0-36.0); Mean Corpuscular Volume 104.1 fL (78.0-102.0); Mean Platelet Volume 11.6 fl (8.7-11.0); Platelet Count Result 64 K/mm3 (150-420); Red Blood Count 2.21 M/mm3 (4.70-6.10); Red Cell Distribution Width 18.6 % (11.6-14.4); White Blood Count 2.8 K/mm3 (4.8-10.8)
[2022-09-30 11:41] LABS: Anion Gap 9 mmol/L (8-16); Blood Urea Nitrogen 51 mg/dL (7-18); Carbon Dioxide 24 mmol/L (21-32); Chloride 110 mmol/L (98-108); Estimated CRCL calculation 22 ml/min; Estimated Glomerular Filt Rate 32; Glucose 184 mg/dL (70-99); Osmolality Calculated 314 mOsm/kg (285-295); Potassium 4.1 mmol/L (3.5-5.1); Sodium 143 mmol/L (136-145)
[2022-09-30 12:05] LABS: Glucose Point of Care 163 mg/dl (65-105)
--- NOTE | 2022-09-30 15:30 | PC.NURSE ---
Urinary catheter flushed with sterile NS, return of light pink urine
[2022-09-30 17:01] LABS: Glucose Point of Care 190 mg/dl (65-105)
[2022-09-30 18:23] LABS: Hematocrit 24.5 % (37.0-46.0); Hemoglobin 7.8 g/dL (12.4-15.3)
[2022-09-30 20:31] LABS: Glucose Point of Care 164 mg/dl (65-105)
[2022-10-01] VITALS: BP 101/55; PULSE 78; RESP 16; TEMP 36.2; O2SAT 98
--- NOTE | 2022-10-01 03:59 | PC.NURSE ---
SIMPLEX OPERATOR documentation reviewed and verified by charge nurse.
[2022-10-01 07:43] LABS: Glucose Point of Care 139 mg/dl (65-105)
[2022-10-01 08:00] VITALS: BP 98/62; PULSE 71; RESP 16; TEMP 36.4; O2SAT 99
--- NOTE | 2022-10-01 08:12 | PC.NURSE ---
Patient urinary bag has dark red blood. Urinary catheter flushed return of blood clots. Patient also had large BM
[2022-10-01] MEDS: ATORVASTATIN 10 MG TABLET 20 MG PO (08:55)
[2022-10-01] MEDS: FOLIC ACID 1 MG TABLET PO (08:56)
[2022-10-01] MEDS: TAMSULOSIN HCL 0.4 MG CAPSULE 0.8 MG PO ×2 (08:56→17:13)
[2022-10-01] MEDS: MAGNESIUM OXIDE 400 MG TABLET PO (08:56)
[2022-10-01] MEDS: FINASTERIDE 5 MG TABLET PO (08:56)
[2022-10-01 08:57] VITALS: PULSE 69
[2022-10-01] MEDS: FERROUS SULFATE 325 MG TABLET DR PO (08:57)
[2022-10-01] MEDS: PANTOPRAZOLE 40 MG TABLET PO (08:57)
[2022-10-01] MEDS: carvediloL 1.56 MG TABLET PO ×3 (08:57→17:12)
[2022-10-01] MEDS: allopurinoL 100 MG TABLET PO (08:58)
[2022-10-01] MEDS: EMPAGLIFLOZIN 10 MG TABLET PO (08:58)
[2022-10-01] MEDS: INSULIN GLARGINE (*BKC) 1,000 UNITS/10 ML VIAL 15 UNITS SUB-Q (08:59)
[2022-10-01 11:16] LABS: Hemoglobin 7.2 g/dL (12.4-15.3)
--- NOTE | 2022-10-01 11:39 | PM.IMPN ---
Progress Note: A&P Assessment and Plan (1) Generalized weakness: Code(s): R53.1 - Weakness Status: Acute (2) Hematuria: Qualifiers: Hematuria type: gross Qualified Code(s): R31.0 - Gross hematuria Code(s): R31.9 - Hematuria, unspecified Status: Acute Assessment and Plan: flush Nelson catheter Q 4-6 hours if no urine output due to clots we may need to start start CBI hgb 7.2 (3) Thrombocytopenia: Code(s): D69.6 - Thrombocytopenia, unspecified Status: Acute (4) Stage 3b chronic kidney disease: Code(s): N18.32 - Chronic kidney disease, stage 3b Status: Chronic (5) Diabetes mellitus: Code(s): E11.9 - Type 2 diabetes mellitus without complications Status: Acute Assessment and Plan: monitor patient's blood sugar a.c. and HS (6) CAD (coronary artery disease): Code(s): I25.10 - Atherosclerotic heart disease of [place] coronary artery without angina pectoris Status: Acute Plan A/P 1. Debility/generalized weakness- patient has been admitted to swing bed and PT/ OT will evaluate and treat patient. 2. Hematuria- patient's Nelson catheter has a clear yellow urine noted. Nelson catheter is to stay in place until seen by Urology. Urology noted that patient will be seen in 1-2 weeks for a voiding trial. Urology stated that the Urology office would contact patient with follow-up visit. Continue to monitor urine for any hematuria. 3. Chronic kidney disease-patient is at stage IIIB with a GFR of 32. Patient's creatinine is 1.98 and this is patient's baseline. Patient typically will have a creatinine of 1.8-1.9 and. During last hospitalization patient did have a creatinine above 2 at times. 4. Diabetes mellitus- patient states he was taking insulin that he was discharged on from this facility. At some point it was noted that patient had not been taking his insulin and it was not continued at outside hospital. Patient's blood glucose levels were over 200 daily. Will resume patient's Lantus at 15 units daily and continue to have blood glucose monitoring before meals and at bedtime. Will also continue with patient she Jardiance. Patient will have sliding scale available as needed. At some point it was stated that patient had latent autoimmune adult onset diabetes, but antibodies were drawn during last hospitalization and they were all negative so patient is a type 2 diabetic. 5. Coronary artery disease- patient had previously been on aspirin and Plavix, but secondary to multiple episodes of gross hematuria his Plavix had been discontinued and he has been okay to continue a baby aspirin. Patient did have previous coronary stents placed the last time being in 2018. VTE: Will avoid pharmacological VTE prophylaxis secondary to patient's frequent hematuria. Will have knee-high Forrest hose placed. Dispo: Patient requires inpatient monitoring with expected length of stay to exceed 2 midnights for management of care. Code Status: Full code Subjective Date/time seen: 10/01/22 11:39 Interval history: patient continues to have gross hematuria hemoglobin this morning is 7.2 we will continue to monitor his hemoglobin I spoke with urology yesterday. Our plan is we will call Dr. Maya tomorrow and address this hematuria that has not stopped. Patient at this time has not required any blood product hemoglobin has not been below 7 he will need a unit of blood if it does we will continue to monitor if at any point time there is no urine coming through the tubing patient will need to be transferred. This morning patient is hypotensive but he is resting at this time. Patient states he is feeling fine except for he is tired will recheck patient's hemoglobin later tonight. Spoke with Dr. Roca yesterday as long as he is not needing surgery at this time he may need prn transfusion and we should continue to irrigate if there is bloody urine and there is st
--- NOTE | 2022-10-01 11:45 | PC.NURSE ---
Urinary catheter flushed with 60 cc of sterile normal saline x2. first flushed -clots present. 2nd flush free of clots. 240 dark red urine emptied prior to flush
[2022-10-01] MEDS: INSULIN HUMAN LISPRO (*BKC) 1,000 UNITS/10 ML VIAL SUB-Q (12:17)
[2022-10-01 13:17] VITALS: PULSE 71
[2022-10-01 16:00] VITALS: BP 106/62; PULSE 77; RESP 14; TEMP 36.5; O2SAT 100
[2022-10-01 17:12] VITALS: PULSE 77
[2022-10-01 17:12] LABS: Glucose Point of Care 190 mg/dl (65-105)
[2022-10-01 17:12] LABS: Glucose Point of Care 213 mg/dl (65-105)
[2022-10-01 17:12] LABS: Glucose Point of Care 225 mg/dl (65-105)
--- NOTE | 2022-10-01 17:51 | PC.NURSE ---
Patient's urinary catheter flushed and drained. Red urine and small clots returned
[2022-10-01 21:32] LABS: Glucose Point of Care 173 mg/dl (65-105)
--- NOTE | 2022-10-01 22:20 | PC.NURSE ---
patient sleeps most of the evening. has smear of dry stool on hands and on front of brief. cleaned up and barrier applied to buttocks and scrotal area. both areas are red at this time. no open areas. soler cath irrigated with 60ml sterile ns. tolerated well. urine remains very dk and almost thick. did lighten up for just second. denies any pain at this time.
[2022-10-02] VITALS: BP 101/62; PULSE 79; RESP 20; TEMP 36.3; O2SAT 95
--- NOTE | 2022-10-02 02:43 | PC.NURSE ---
Irrigated soler cath, noted clots, small, all irrigation flowed out easily
--- NOTE | 2022-10-02 04:28 | PC.NURSE ---
bloody drge from soler continues, lightens with irrigation
[2022-10-02 05:19] LABS: Magnesium 1.6 mg/dL (1.8-2.4)
--- NOTE | 2022-10-02 05:33 | PC.NURSE ---
Nelson tubing more clear this am
[2022-10-02 07:24] LABS: Hematocrit 21.3 % (37.0-46.0); Immature Platelet Fraction Pct 1.8 % (1.0-7.0); Mean Corpuscular HGB Conc 31.9 g/dL (32.0-36.0); Mean Corpuscular Volume 103.4 fL (78.0-102.0); Mean Platelet Volume 11.3 fl (8.7-11.0); Platelet Count Result 68 K/mm3 (150-420); Red Blood Count 2.06 M/mm3 (4.70-6.10); Red Cell Distribution Width 18.6 % (11.6-14.4); White Blood Count 3.5 K/mm3 (4.8-10.8)
[2022-10-02 07:26] LABS: Anion Gap 9 mmol/L (8-16); Blood Urea Nitrogen 50 mg/dL (7-18); Calcium 7.5 mg/dL (8.5-10.1); Carbon Dioxide 21 mmol/L (21-32); Chloride 112 mmol/L (98-108); Estimated CRCL calculation 24 ml/min; Estimated Glomerular Filt Rate 35; Glucose 119 mg/dL (70-99); Osmolality Calculated 308 mOsm/kg (285-295); Potassium 3.6 mmol/L (3.5-5.1); Sodium 142 mmol/L (136-145)
[2022-10-02 07:45] VITALS: BP 103/57; PULSE 74; RESP 18; TEMP 36.7; O2SAT 97
[2022-10-02 08:12] LABS: Hemoglobin 6.8 g/dL (12.4-15.3)
[2022-10-02] MEDS: EMPAGLIFLOZIN 10 MG TABLET PO (08:53)
[2022-10-02 08:54] VITALS: PULSE 74
[2022-10-02] MEDS: TAMSULOSIN HCL 0.4 MG CAPSULE 0.8 MG PO (08:54)
[2022-10-02] MEDS: carvediloL 1.56 MG TABLET PO (08:54)
[2022-10-02] MEDS: MAGNESIUM OXIDE 400 MG TABLET PO (08:54)
[2022-10-02] MEDS: FINASTERIDE 5 MG TABLET PO (08:55)
[2022-10-02] MEDS: ASPIRIN 81 MG ENTERIC TABLET PO (08:55)
[2022-10-02] MEDS: FERROUS SULFATE 325 MG TABLET DR PO (08:55)
[2022-10-02] MEDS: ATORVASTATIN 10 MG TABLET 20 MG PO (08:55)
[2022-10-02] MEDS: allopurinoL 100 MG TABLET PO (08:55)
[2022-10-02] MEDS: PANTOPRAZOLE 40 MG TABLET PO (08:55)
[2022-10-02] MEDS: FOLIC ACID 1 MG TABLET PO (08:55)
[2022-10-02] MEDS: INSULIN GLARGINE (*BKC) 1,000 UNITS/10 ML VIAL 15 UNITS SUB-Q (08:59)
--- NOTE | 2022-10-02 09:25 | PC.NURSE ---
Addendum entered by Iris Mercado RN 10/02/22 09:28: All 240 of irrigation returned with addition of 60ml of urine. Original Note: 3 way soler cath irrigated with 240ml of sterile water till urine runs clear. Small blood clots noted during irrigation. Patient tolerated well. Urine pre and post irrigation dark red. COMPUTER PROGRAMMER Nubia aware of urine condition.
--- NOTE | 2022-10-02 09:26 | P.TS_ITS ---
Transfer Discharge Sum: Prov Provider Date of admission: 09/27/22 17:03 Primary care physician: Yeyo Henriquez MD Admitting clinician: Lamonte Briggs MD Consults: None Attending physician on discharge: Olvin Briggs Discharging clinician: Lazara Mi Anticipated date of transfer: 10/02/22 Receiving physician/facility: [facility] DS: Admitting Diagnosis Discharge Date 10/02/2022 Admitting Diagnosis Gross Hematuria, Generalized weakness secondary to debility DS: Discharge Diagnosis Discharge Diagnosis (1) Hematuria: Qualifiers: Hematuria type: gross Qualified Code(s): R31.0 - Gross hematuria Code(s): R31.9 - Hematuria, unspecified Status: Acute Assessment and Plan: * It has taken 200 ml of flushing every 4 hours by nursing to keep soler catheter flushed as he does not have a CBI and urine remains bloody, bright to maroon with clots. * Thrombocytopenia possible contributing factor with Platelets at 68 this AM? * Pt. with interval decrease overnight in Hgb from 7.2-->6.8 * 2 Units PRBC's ordered and initiated for the patient. * Unable to do CBI at this facility, and efforts of flushing are only temporarily helping with pt having continued bleeding. Decision to transfer back to [facility] is made so pt can have consultation by Urology again, and CBI placement. * Accepted by Dr. Gandara, hospitalist. * Pharmacological VTE prophylaxis was avoided and Forrest hose were placed instead. (2) Generalized weakness: Code(s): R53.1 - Weakness Status: Acute Assessment and Plan: * Etiology anemia vs deconditioning as he has had multiple days in the hospital setting. * Should resume PT/OT at acute inpatient facility. (3) Thrombocytopenia: Code(s): D69.6 - Thrombocytopenia, unspecified Status: Acute Assessment and Plan: * Etiology uncertain, but appears chronic in nature going back to 2019. * Possible contributer to persistent Prostatic bleeding? (4) Stage 3b chronic kidney disease: Code(s): N18.32 - Chronic kidney disease, stage 3b Status: Chronic Assessment and Plan: * At Baseline (5) Diabetes mellitus: Code(s): E11.9 - Type 2 diabetes mellitus without complications Status: Acute Assessment and Plan: * Continue Glucose checks AC and HS * Continue Jardiance * Continue Lantus 15 units daily * Continue SSI Humalog * Diabetic diet * Hypoglycemic protocol (6) CAD (coronary artery disease): Code(s): I25.10 - Atherosclerotic heart disease of [place] coronary artery without angina pectoris Status: Chronic Assessment and Plan: * Continue statin therapy * Holding baby ASA for now * Continue Carvedilol Plan Pt. has chosen to be a Full Code. Transfer Discharge Sum: Med Medications Active and Home Medications: Home Medications allopurinol 100 mg tablet 100 mg PO DAILY 05/26/20 [History Confirmed 09/27/22] atorvastatin 40 mg tablet 20 mg PO DAILY 05/26/20 [History Confirmed 09/27/22] folic acid 1 mg tablet 1 mg PO DAILY 05/26/20 [History Confirmed 09/27/22] tamsulosin 0.4 mg capsule 0.8 mg PO BID 05/26/20 [History Confirmed 09/27/22] ferrous sulfate 134 mg (27 mg iron) tablet 134 mg PO DAILY 02/22/22 [History Confirmed 09/27/22] carvedilol 3.125 mg tablet 1.56 mg PO TID 03/12/22 [History Confirmed 09/27/22] pantoprazole 40 mg tablet,delayed release 40 mg PO QAM #30 tabs 08/10/22 [Rx Confirmed 09/27/22] aspirin 81 mg
--- NOTE | 2022-10-02 09:26 | PM.TDS ---
Transfer Discharge Sum: Prov Provider Date of admission: 09/27/22 17:03 Primary care physician: Yeyo Henriquez MD Admitting clinician: Lamonte Briggs MD Consults: None Attending physician on discharge: Olvin Briggs Discharging clinician: Lazara Mi Anticipated date of transfer: 10/02/22 Receiving physician/facility: [facility] DS: Admitting Diagnosis Discharge Date 10/02/2022 Admitting Diagnosis Gross Hematuria, Generalized weakness secondary to debility DS: Discharge Diagnosis Discharge Diagnosis (1) Hematuria: Qualifiers: Hematuria type: gross Qualified Code(s): R31.0 - Gross hematuria Code(s): R31.9 - Hematuria, unspecified Status: Acute Assessment and Plan: It has taken 200 ml of flushing every 4 hours by nursing to keep soler catheter flushed as he does not have a CBI and urine remains bloody, bright to maroon with clots. Thrombocytopenia possible contributing factor with Platelets at 68 this AM? Pt. with interval decrease overnight in Hgb from 7.2-->6.8 2 Units PRBC's ordered and initiated for the patient. Unable to do CBI at this facility, and efforts of flushing are only temporarily helping with pt having continued bleeding. Decision to transfer back to [facility] is made so pt can have consultation by Urology again, and CBI placement. Accepted by Dr. Gandara, hospitalist. Pharmacological VTE prophylaxis was avoided and Forrest hose were placed instead. (2) Generalized weakness: Code(s): R53.1 - Weakness Status: Acute Assessment and Plan: Etiology anemia vs deconditioning as he has had multiple days in the hospital setting. Should resume PT/OT at acute inpatient facility. (3) Thrombocytopenia: Code(s): D69.6 - Thrombocytopenia, unspecified Status: Acute Assessment and Plan: Etiology uncertain, but appears chronic in nature going back to 2019. Possible contributer to persistent Prostatic bleeding? (4) Stage 3b chronic kidney disease: Code(s): N18.32 - Chronic kidney disease, stage 3b Status: Chronic Assessment and Plan: At Baseline (5) Diabetes mellitus: Code(s): E11.9 - Type 2 diabetes mellitus without complications Status: Acute Assessment and Plan: Continue Glucose checks AC and HS Continue Jardiance Continue Lantus 15 units daily Continue SSI Humalog Diabetic diet Hypoglycemic protocol (6) CAD (coronary artery disease): Code(s): I25.10 - Atherosclerotic heart disease of [place] coronary artery without angina pectoris Status: Chronic Assessment and Plan: Continue statin therapy Holding baby ASA for now Continue Carvedilol Plan Pt. has chosen to be a Full Code. Transfer Discharge Sum: Med Medications Active and Home Medications: Home Medications allopurinol 100 mg tablet 100 mg PO DAILY 05/26/20 [History Confirmed 09/27/22] atorvastatin 40 mg tablet 20 mg PO DAILY 05/26/20 [History Confirmed 09/27/22] folic acid 1 mg tablet 1 mg PO DAILY 05/26/20 [History Confirmed 09/27/22] tamsulosin 0.4 mg capsule 0.8 mg PO BID 05/26/20 [History Confirmed 09/27/22] ferrous sulfate 134 mg (27 mg iron) tablet 134 mg PO DAILY 02/22/22 [History Confirmed 09/27/22] carvedilol 3.125 mg tablet 1.56 mg PO TID 03/12/22 [History Confirmed 09/27/22] pantoprazole 40 mg tablet,delayed release 40 mg PO QAM #30 tabs 08/10/22 [Rx Confirmed 09/27/22] aspirin 81 mg tablet,delayed release 81 mg PO QAM #30 tabs 09/04/22 [Rx Confirmed 09/27/22] empagliflozin 10 mg tablet (Jardiance) 10 mg PO DAILY 30 days #30 tabs 09/04/22 [Rx Confirmed 09/27/22] finasteride 5 mg tablet (Proscar) 5 mg PO QAM #30 tabs 09/27/22 [Rx Confirmed 09/27/22] insulin glargine 100 unit/mL subcutaneous solution (Lantus U-100 Insulin) 15 unit subcut QAM 09/27/22 [History Confirmed 09/27/22] Active Medications Allopurinol (Allopurinol 100 Mg Tablet) 100 mg PO DAILY S
--- NOTE | 2022-10-02 10:00 | PC.NURSE ---
Transfer line called with bed for patient at [facility] #332 bed B. Number to call report [phone].
[2022-10-02] MEDS: SODIUM CHLORIDE 0.9% IV 250 ML 30 ML IV CONT (10:05)
[2022-10-02 10:15] VITALS: BP 110/61; PULSE 79; RESP 20; TEMP 36.7; O2SAT 100
--- NOTE | 2022-10-02 10:25 | PC.NURSE ---
Report called to [facility] [address] Med/surg. #[phone].
[2022-10-02 10:30] VITALS: BP 97/52; PULSE 81; RESP 18; TEMP 36.4; O2SAT 97
--- NOTE | 2022-10-02 10:55 | PC.NURSE ---
Patient transferring to [facility]. [facility] here to transfer patient. [facility] transfusing at this time. Patient transporting with blood cont. to transfuse. Patient tolerating good. Report given to EMS. Patient transferred from bed to stretcher with 1 assist. All belongings taken home by daughter pamela, patient has cellphone. Transfer paperwork provided to EMS. Patient denies any questions at d/c. Left floor via stretcher with EMS.
== END 2022-10-02 10:55 | disposition short-term general hospital (02) | DRG 948 ==
PROVIDERS: Nurse Practitioner Adult Health; Nurse Practitioner Family; Admitting Provider Internal Medicine; PCP Internal Medicine; Visit Provider Internal Medicine
DX: R53.1 Weakness (principal); N18.32 Chronic kidney disease, stage 3b; I12.9 Hypertensive chronic kidney disease with stage 1 through stage 4 chronic kidney disease, or unspecified chronic kidney disease; N40.0 Benign prostatic hyperplasia without lower urinary tract symptoms; I25.10 Atherosclerotic heart disease of native coronary artery without angina pectoris; D69.6 Thrombocytopenia, unspecified; E78.5 Hyperlipidemia, unspecified; E11.22 Type 2 diabetes mellitus with diabetic chronic kidney disease; M10.9 Gout, unspecified; R31.9 Hematuria, unspecified; Z87.442 Personal history of urinary calculi; Z95.5 Presence of coronary angioplasty implant and graft; Z79.82 Long term (current) use of aspirin; Z79.4 Long term (current) use of insulin
CPT/HCPCS: 36415; 36430; 74176; 80048; 82948; 83735; 85014; 85018; 85025; 85027; 85055; 86850; 86900; 86901; 86920; 97110; 97161; 97165; 97530; 97535; A9270; J1815; J7050; P9016

== ENCOUNTER 2022-10-02 11:47 | Inpatient (IN) | payer MEDICARE, SELFPAY ==
--- NOTE | ~2022-10-02 | XR_ITS ---
EXAMINATION: XR chest 1V portable DATE: 10/05/2022 13:31 INDICATION: Shortness of breath TECHNIQUE: frontal view of the chest was obtained. COMPARISON: Chest radiograph dated 08/24/[address] abdomen and pelvis dated 09/28/2022 FINDINGS: Patient is rotated slightly towards the right. Small lung volumes. Stable appearance of chronic atele ctasis/scarring at the right lung base. Bronchiectatic changes at the left lung base. No new airspace opacities, ulnar edema, pleural effusion or pneumothorax. Heart size is normal. Severe degenerative skeletal changes in the spine and at both shoulders. IMPRESSION: 1. Stable appearance of small lung volumes with chronic atelectasis/scarring at the right lung base a nd bronchiectatic changes in the left lower lung zone. Reviewed, dictated and finalized at location L. IMPRESSION: 1. Stable appearance of small lung volumes with chronic atelectasis/scarring at the right lung base and bronchiectatic changes in the left lower lung zone.
[2022-10-02 12:55] VITALS: BMI 23.2
--- NOTE | 2022-10-02 13:05 | ADMGEN ---
This patient, Jaspal Ruggiero, was admitted to 3 Med Surg Room 332-02. Patient/family oriented to hospital policies and general routines including ID bracelet, bed and alarms, visiting hours, pain management, procedures, bathroom and other care routines, personal items, smoking policy, room service/diet, and visiting hours. Information on how to activate the Rapid Response Team has been discussed. Patient/Family are encouraged to report perceived risks to care and to ask questions if they do not understand what they are told or what they should do. This pt received from [facility] due to gross hematuria. Pt arrived with unit#1 of blood transfusing. 1130 VS: 117/56, HR 84, R 16. 02 98%, T 97.0F; 1230 128/68, HR 80, R16 02 100 T 97.2F; 1250 138/72, HR 80, 02 100 R 16, T97.3. Julio Gandara notified. Requested consult for urology; Sami notified via urology associate Amina. Blood consent signed from [facility]. 20 RW peripheral IV and 3 way soler from 09/22 cystoscopy/soler placement with Parres present on admission.
--- NOTE | 2022-10-02 13:44 | PM.IMHP ---
H&P: HPI History of Present Illness Date/Time: 10/02/22 13:44 Chief Complaint: Hematuria Narrative: This is an 87-year-old male patient who had been admitted to [facility] on 09/22/2022 and discharged from [facility] 09/26/2022 interval history:?Patient presented with gross hematuria.? Recent history of the same underlying history of cirrhosis with GI bleed with rectal varicess hypertension hyperlipidemia BPH history of diabetes on oral hypoglycemic agent.? Coronary artery disease status post stents in 2016 and 2018 history of kidney stones and gout.? Recent admission for DKA.? A1c 10.1 discharged on insulin.? Urology was consulted completed antibiotic course with the suspected etiology for his hematuria.? Nelson catheter to continue per Urology recommendation which was recently discontinued.? Creatinine of 2.6 on admission.? Urology consulted irrigation was started however unsuccessful hence taken to the OR for cystoscopy and clot evacuation which was performed on 09/22/2022 also had cauterization of the prostatic urethra at the areas of oozing.? Hematuria has now resolved.? Continue Nelson and DC on Nelson per Urology recommendation.? He was discharged on insulin however he is not on any insulin anymore.? A1c came back at 8.0.? On Jardiance and will continue same.? Generalized weakness persist.? Acute on chronic anemia due to blood loss not needing transfusion.? Down trending.? Continue PT OT patient interested in going to swing bed at [facility].? Discussed with care coordination. today patient seen by his urologist urine is cleare and patient is stable, ? Await placement the patient was admitted to swing bed at [facility] on 09/27/2022. He had abdominal pelvis CT on 09/28/2022 read as the following Today.... the patient's Nelson catheter was full of blood was bright maroon and the Nelson catheter was flushed with 200 mL every 4 hours per nursing. The patient was started on 2 units of packed red blood cells. Unable to do a CBI at [facility]. The patient was accepted by the hospitalist Dr. Gandara today. Urology has been consulted.1. Cirrhosis of the liver with portal venous hypertension. 2. Moderate volume of ascites. 3. Chronic bladder wall thickening, likely secondary to chronic outlet obstruction. Currently the patient is laying in the bed with the daughter at the bedside. The patient is very frail and pale. Patient is a Nelson catheter draining maroon colored urine. The patient was a direct admit from [facility] being admitted back to [facility] observation status on the date of service of 10/02/2022. Review of Systems Review of Systems: All systems reviewed & are unremarkable except as noted in HPI and below Constitutional: Constitutional: Reports as per HPI and Reports no additional constitutional complaints Eyes: Eyes: Reports as per HPI and Reports no additional eye complaints ENT: Reports system reviewed and no additional complaints, except as documented and Reports Normal hearing present Cardiovascular: Cardiovascular: Reports no additional cardiovascular complaints Respiratory: Respiratory: Reports no additional respiratory complaints and Reports no additional respiratory complaints Gastrointestinal: Gastrointestinal: Reports as per HPI and Reports no additional gastrointestinal complaints Musculoskeletal: Musculoskeletal: Reports no additional musculoskeletal complaints Integumentary/Breasts: Skin/Breast: Reports system reviewed and no additional complaints, except as docu and Reports as per HPI Neurologic: Reports system reviewed and no additional complaints, except as documented, Reports as per HPI and Reports Normal hearing present Psychiatric: Psychiatric: Reports no additional psychiatric complaints and Reports as per HPI Endocrine: Endocrine: Reports no additional endocrine complaints Hematologic/Lymphatic: Hematologic/Lymphatic: Reports no additional hematologic/lymphatic complaints Allergic/I
[2022-10-02 14:00] VITALS: BP 138/72; PULSE 80; RESP 16; TEMP 36.3; O2SAT 100
[2022-10-02 14:33] LABS: Hematocrit 26.8 % (42.0-52.0); Hemoglobin 8.6 g/dL (14.0-18.0)
--- NOTE | 2022-10-02 16:23 | WPDURCON ---
Urology Consult Note HPI Date Seen: 10/02/22 Requesting Physician: Stewart Gandara MD Primary Care Provider: Yeyo Henriquez MD Consult Narrative Narrative: Jaspal Ruggiero is a 87 year old male Well known to our service after recently presenting with urinary retention. Shortly after catheter removal for a voiding trial he developed gross hematuria which prompted admission for several days last week. Upper tract imaging with a CT scan of the abdomen and pelvis without contrast showed no obvious upper tract pathology. He did have a large bladder clot which required clot evacuation. This demonstrated likely bleeding from an enlarged prostate. His bladder was trabeculated with diverticular formation. There appeared to be no significant intravesical pathology other than the clot. Pre with supportive care and continuous bladder irrigation his urine cleared and he was discharged. Within 48 hours he developed recurrent hematuria. Outpatient CT showed no reaccumulation of clot. Was transferred back, however, with persistent hematuria and anemia. At the bedside his urine clears promptly with CBI and irrigates without clot. Review of Systems Cardiovascular: Cardiovascular: Denies chest pain, Denies lightheadedness, Denies palpitations and Denies dyspnea Respiratory: Respiratory: Denies dyspnea Gastrointestinal: Gastrointestinal: Denies diarrhea, Denies nausea and Denies vomiting Genitourinary: Genitourinary: Denies hematuria and Denies dysuria Endocrine: Endocrine: Denies palpitations PMFSH Past Medical History Medical History (Updated 10/02/22 @ 15:33 by Anastasia Kim NP) Acute UTI (urinary tract infection) BPH (benign prostatic hyperplasia) CAD (coronary artery disease) Dehydration, mild Gout History of colon polyps History of kidney stones Hyperglycemia due to diabetes mellitus Hyperlipidemia Hypertension Melena Pneumonia Viral syndrome Surgical History Surgical History (Updated 10/02/22 @ 15:33 by Anastasia Kim NP) H/O colonoscopy with polypectomy H/O hernia repair H/O removal of cyst On his chest History of back surgery History of cardiac catheterization Hx of cholecystectomy Stented coronary artery 2015, and 2017 Family History Family History Father Diabetes mellitus Heart disease Acute myocardial infarction Sibling Diabetes mellitus Social History Social History (Updated 10/02/22 @ 15:19 by Anastasia Kim NP) Social History: The patient lives with his and has 2 Children. Patient is retired from [employer]. The patient stated he used to drink heavily but does not drink anymore. His is the durable power commercial attorney for healthcare. Code status full code Smoking status: Never smoker Second hand tobacco smoke exposure: No Alcohol intake: former Drinks per week: 2 Substance use: never Substance use type: does not use Lack of Transportation: YES Lack of Food: Never True Current Housing: I Have Housing Concerned About Future Housing: No Difficulty Paying Gas/Electric Bills: No Difficulty Paying for Meds: No Currently Unemployed: No Education: Decline to Answer Difficulty w/ Childcare or Family Care: YES Living arrangements: with family Spiritual care concerns: No Meds Home Medications and Allergies Home Medications Medication Instructions Recorded Confirmed Type allopurinol 100 mg tablet 100 mg PO DAILY 05/26/20 09/27/22 History atorvastatin 40 mg tablet 20 mg PO DAILY 05/26/20 09/27/22 History folic acid 1 mg tablet 1 mg PO DAILY 05/26/20 09/27/22 History tamsulosin 0.4 mg capsule 0.8 mg PO BID 05/26/20 09/27/22 History ferrous sulfate 134 mg (27 mg 134 mg PO DAILY 02/22/22 09/27/22 History iron) tablet carvedilol 3.125 mg tablet 1.56 mg PO TID 03/12/22 09/27/22 History pantoprazole 40 mg tablet,delayed 40 mg PO QAM #30 tabs 08/10/22 09/27/22 Rx release asp
[2022-10-02 17:20] LABS: Glucose Point of Care 138 mg/dl (65-105)
[2022-10-02] MEDS: SODIUM CHLORIDE 0.9% IV 1,000 ML 100 ML IV CONT (18:05)
--- NOTE | 2022-10-02 18:52 | PDONCCN ---
HPI - Date of Consult Date/Time: 10/02/22 18:52 Requesting Physician: Stewart Gandara MD Primary Care Provider: Yeyo Henriquez MD - Consult Narrative Reason for consult: Pancytopenia and hematuria Narrative: Jaspal Ruggiero is a 87 year old male with history of hematuria, GI bleed with rectal viruses along with BPH who was recently discharged from [facility] on September 26 came back to the hospital with hematuria. Patient completed course of suspected UTI. Nelson catheter found to be full of blood bright maroon with deeper came into the hospital from [facility]. He was started on CBI. CT scan showed cirrhosis of the liver with portal venous hypertension and moderate volume of ascites along with chronic bladder wall thickening likely secondary to chronic outlet obstruction. Labs showed hemoglobin of 6.8 and received 1 unit of packed red blood cell with improvement in hemoglobin now up to 8.6. Platelet count remains low but stable at 68,000. He denies any previous history of hematological malignancy. Review of Systems - Review of Systems All systems reviewed & are unremarkable except as noted in HPI and bel - Neurologic Reports system reviewed and no additional complaints, except as documented, Reports hearing normal PENDING SALE TO [facility] Medical History: Medical History (Last Updated 10/02/22 @ 15:33 by Anastasia Kim NP) Acute UTI (urinary tract infection) BPH (benign prostatic hyperplasia) CAD (coronary artery disease) Dehydration, mild Gout History of colon polyps History of kidney stones Hyperglycemia due to diabetes mellitus Hyperlipidemia Hypertension Melena Pneumonia Viral syndrome Surgical History: Surgical History (Last Updated 10/02/22 @ 15:33 by Anastasia Kim NP) H/O colonoscopy with polypectomy H/O hernia repair H/O removal of cyst On his chest History of back surgery History of cardiac catheterization Hx of cholecystectomy Stented coronary artery 2015, and 2018 Family History: Family History (Last Reviewed 10/02/22 @ 15:19 by Anastasia Kim NP) Father Diabetes mellitus Heart disease Acute myocardial infarction Sibling Diabetes mellitus - Social History Social History: Social History (Last Updated 10/02/22 @ 15:19 by Anastasia Kim NP) Alcohol Use: Alcohol intake: former Drinks per week: 2 Substance Use: Substance use: never Substance use type: does not use Others: Spiritual care concerns: No Living Arrangements: Living arrangements: with family Smoking Status: Smoking status: Never smoker Second hand tobacco smoke exposure: No Social Determinants of Health: Has the Lack of Transportation Kept You From Medical Appointments or From Getting Medications?: Yes Within the Past 12 Months, Were You Worried Whether Your Food Would Run Out Before You Got Money to Buy More?: Never True What is Your Housing Situation Today?: I Have Housing Are You Worried That in the Next 2 Months, You May Not Have Your Own Housing to Live In?: No Do You Have Trouble Paying Your Heating Or Electricity Bill?: No Do You Have Trouble Paying For Medicines?: No Are You Currently Unemployed and Looking for Work?: No Highest Level of Education Completed: Decline to Answer Do You Have Trouble With Childcare or the Care of a Family Member?: Yes Exam - Exam HEENT: EOMI, PERRLA, mucous membranes moist and pink Neck: supple. No: JVD Lungs: clear to auscultation, normal air movement Heart: no murmurs, gallops, or rubs, regular rhythm, regular rate Abdomen: abdomen soft, non-distended, normal bowel sounds Extremities: normal pulses Integumentary: no abnormalities Psychological: mental status NL, mood NL - Lab Results Laboratory Last Values Hgb 8.6 g/dL (14.0-18.0) L 10/02/22 14:27 Hct 26.8 % (42.0-52.0) L 10/02/22 14:27 POC Capillary Glucose 138 mg/dl (65-105) H 10/02/22 16:57
[2022-10-02 20:00] VITALS: PULSE 74; PULSE 76; RESP 16; O2SAT 100
[2022-10-02 21:11] LABS: Glucose Point of Care 116 mg/dl (65-105)
[2022-10-02 21:17] VITALS: BP 110/65; PULSE 74; RESP 16; TEMP 36.5; O2SAT 100
[2022-10-02] MEDS: AMINOCAPROIC ACID INJ 5,000 MG in DEXTROSE 5% IN WATER 250 ML 50 MG IVPB (21:34)
[2022-10-02 21:41] LABS: Hematocrit 25.8 % (42.0-52.0); Hemoglobin 8.1 g/dL (14.0-18.0)
[2022-10-02] MEDS: carvediloL 1.56 MG TABLET PO (23:58)
[2022-10-03] VITALS (11 sets, daily range): BP systolic 95–102; BP diastolic 57–61; PULSE 60–70; RESP 16–18; TEMP 36–36.4; O2SAT 100; BMI 23.2
[2022-10-03] MEDS: AMINOCAPROIC ACID INJ 5,000 MG in DEXTROSE 5% IN WATER 250 ML 50 MG IVPB ×2 (03:44→08:20)
[2022-10-03] MEDS: SODIUM CHLORIDE 0.9% IV 1,000 ML 100 ML IV CONT ×2 (04:05→12:05)
[2022-10-03 04:21] LABS: Eosinophils Absolute Auto 0.1 K/mm3 (0-0.3); Eosinophils Percent Auto 3.5 % (0-4.4); Hematocrit 24.5 % (42.0-52.0); Hemoglobin 7.8 g/dL (14.0-18.0); Immature Granulocyte Absolute 0.01 K/mm3 (0.00-0.031); Immature Granulocyte Percent A 0.3 % (0-0.5); Immature Platelet Fraction Pct 1.7 % (0.9-11.2); Lymphocytes Absolute Auto 0.68 K/mm3 (0.9-3.2); Lymphocytes Percent Auto 21.8 % (18.3-44.2); Mean Corpuscular HGB Conc 31.8 g/dl (32-36); Mean Corpuscular Hemoglobin 32.6 pg (26-34); Mean Corpuscular Volume 102.5 fl (80-100); Mean Platelet Volume 10.4 fl (7.4-10.4); Monocytes Absolute Auto 0.3 K/mm3 (0.1-0.6); Monocytes Percent Auto 9.6 % (2.6-8.5); Neutrophils Percent Auto 63.8 % (45.5-73.1); Platelet Count Result 66 k/mm3 (150-375); Red Blood Count 2.39 M/mm3 (4.6-6.20); White Blood Count 3.1 K/mm3 (4.5-10.0)
[2022-10-03 04:29] LABS: Alanine Aminotransferase 20 U/L (6-50); Alkaline Phosphatase 187 U/L (38-126); Ammonia 26 umol/L (9-30); Anion Gap 3 mmol/L (8-16); Aspartate Amino Transferase 33 U/L (17-59); Bilirubin,Total 1.1 mg/dL (0.2-1.3); Blood Urea Nitrogen 39 mg/dL (9-20); Calcium 7.4 mg/dL (8.4-10.2); Carbon Dioxide 16 mmol/L (22-30); Chloride 113 mmol/L (98-107); Estimated CRCL calculation 26 ml/min; Estimated Glomerular Filt Rate 38; Glucose 105 mg/dL (65-110); Magnesium 1.7 mg/dL (1.6-2.3); Potassium 3.4 mmol/L (3.4-5.0); Sodium 132 mmol/L (137-145)
[2022-10-03 04:30] LABS: Lactic Acid Reflex 0.9 mmol/L (0.7-2.0)
--- NOTE | 2022-10-03 07:09 | P.PNUR_ITS ---
Progress Note: A&P Assessment and Plan (1) Hematuria: Qualifiers: Hematuria type: gross Qualified Code(s): R31.0 - Gross hematuria Code(s): R31.9 - Hematuria, unspecified Status: Acute Assessment and Plan: * Urine cleared overnight - likely responding to Amicar. Appreciate Dr. Luther's input. * Bladder irrigates freely, without clots. * Will defer endoscopic intervention, for now. Subjective Subjective Date/Time Seen: 10/03/22 07:09 Interval history: Urine cleared overnight. Comfortable, no complaints. Review of Systems Cardiovascular: Cardiovascular: Denies chest pain, Denies lightheadedness, Denies palpitations and Denies dyspnea Respiratory: Respiratory: Denies dyspnea Gastrointestinal: Gastrointestinal: Denies diarrhea, Denies nausea and Denies vomiting Genitourinary: Genitourinary: Denies hematuria and Denies dysuria Endocrine: Endocrine: Denies palpitations Exam Const: General: no acute distress Resp: Effort & Inspection: normal respiratory effort GI: Inspection: non-distended GI Palp: No abdominal tenderness and No Guarding due to palpation present (GI) Auscultation: normal bowel sounds Urinary Catheter: Urinary Catheter: patent and draining and urine clear Objective Data Vital Signs Vital Signs: Vital Signs - 24 hr 10/02/22 14:00 10/02/22 21:17 10/02/22 20:00 Temperature 97.3 F L 97.7 F Pulse Rate 80 74 74 Respiratory Rate 16 16 16 Blood Pressure 138/72 110/65 Pulse Oximetry 100 100 100 Oxygen Delivery Room Air 10/02/22 20:00 10/03/22 00:00 10/03/22 04:00 Temperature Pulse Rate 76 67 60 Respiratory Rate Blood Pressure Pulse Oximetry Oxygen Delivery 10/03/22 05:53 Temperature 97.0 F L Pulse Rate 64 Respiratory Rate 18 Blood Pressure 99/60 L Pulse Oximetry 100 Oxygen Delivery Intake/Output Intake/Output: Intake & Output 09/30/22 10/01/22 10/02/22 10/03/22 23:59 23:59 23:59 23:59 Intake Total 4740 82834 Output Total 7000 88684 Balance -5008 -728 Meds/Results Medications: Active Medications Generic Name Dose Route Start Last Admin Trade Name Freq PRN Reason Stop Dose Admin Atorvastatin Calcium 20 mg 10/03/22 09:00 Atorvastatin 20 Mg Tablet PO DAILY [facility] Carvedilol 1.56 mg 10/02/22 22:15 10/02/22 23:58 Carvedilol 1.56 Mg Tablet PO 1.56 mg Q12HR OSIEL Administration Dextrose 12.5 gm 10/02/22 15:05 Dextrose 50% 25 Gm/50 Ml Syringe IV PUSH PRN PRN Hypoglycemia Protocol Empagliflozin 10 mg 10/03/22 09:00 Empagliflozin 10 Mg Tablet PO DAILY [facility] Ferrous Sulfate 325 mg 10/03/22 08:00 Ferrous Sulfate [address] BY MOUTH BIDWM [facility] Finasteride 5 mg 10/03/22 09:00 Finasteride 5 Mg Tablet PO QAM [facility] Folic Acid 1 mg 10/03/22 09:00 Folic Acid 1 Mg Tablet PO DAILY [facility] Glucagon 1
--- NOTE | 2022-10-03 07:09 | WPDUROPN2 ---
Progress Note: A&P Assessment and Plan (1) Hematuria: Qualifiers: Hematuria type: gross Qualified Code(s): R31.0 - Gross hematuria Code(s): R31.9 - Hematuria, unspecified Status: Acute Assessment and Plan: Urine cleared overnight - likely responding to Amicar. Appreciate Dr. Luther's input. Bladder irrigates freely, without clots. Will defer endoscopic intervention, for now. Subjective Subjective Date/Time Seen: 10/03/22 07:09 Interval history: Urine cleared overnight. Comfortable, no complaints. Review of Systems Cardiovascular: Cardiovascular: Denies chest pain, Denies lightheadedness, Denies palpitations and Denies dyspnea Respiratory: Respiratory: Denies dyspnea Gastrointestinal: Gastrointestinal: Denies diarrhea, Denies nausea and Denies vomiting Genitourinary: Genitourinary: Denies hematuria and Denies dysuria Endocrine: Endocrine: Denies palpitations Exam Const: General: no acute distress Resp: Effort & Inspection: normal respiratory effort GI: Inspection: non-distended GI Palp: No abdominal tenderness and No Guarding due to palpation present (GI) Auscultation: normal bowel sounds Urinary Catheter: Urinary Catheter: patent and draining and urine clear Objective Data Vital Signs Vital Signs: Vital Signs - 24 hr 10/02/22 14:00 10/02/22 21:17 10/02/22 20:00 Temperature 97.3 F L 97.7 F Pulse Rate 80 74 74 Respiratory Rate 16 16 16 Blood Pressure 138/72 110/65 Pulse Oximetry 100 100 100 Oxygen Delivery Room Air 10/02/22 20:00 10/03/22 00:00 10/03/22 04:00 Temperature Pulse Rate 76 67 60 Respiratory Rate Blood Pressure Pulse Oximetry Oxygen Delivery 10/03/22 05:53 Temperature 97.0 F L Pulse Rate 64 Respiratory Rate 18 Blood Pressure 99/60 L Pulse Oximetry 100 Oxygen Delivery Intake/Output Intake/Output: Intake & Output 09/30/22 10/01/22 10/02/22 10/03/22 23:59 23:59 23:59 23:59 Intake Total 4740 98419 Output Total 7000 99618 Balance -7315 -391 Meds/Results Medications: Active Medications Generic Name Dose Route Start Last Admin Trade Name Freq PRN Reason Stop Dose Admin Atorvastatin Calcium 20 mg 10/03/22 09:00 Atorvastatin 20 Mg Tablet PO DAILY OSIEL Carvedilol 1.56 mg 10/02/22 22:15 10/02/22 23:58 Carvedilol 1.56 Mg Tablet PO 1.56 mg Q12HR OSIEL Administration Dextrose 12.5 gm 10/02/22 15:05 Dextrose 50% 25 Gm/50 Ml Syringe IV PUSH PRN PRN Hypoglycemia Protocol Empagliflozin 10 mg 10/03/22 09:00 Empagliflozin 10 Mg Tablet PO DAILY OSIEL Ferrous Sulfate 325 mg 10/03/22 08:00 Ferrous Sulfate [address] BY MOUTH [facility] Finasteride 5 mg 10/03/22 09:00 Finasteride 5 Mg Tablet PO QAM [facility] Folic Acid 1 mg 10/03/22 09:00 Folic Acid 1 Mg Tablet PO DAILY [facility] Glucagon 1 mg 10/02/22 15:05 Glucagon For Inj 1 Mg Vial IM PRN PRN Hypoglycemia Protocol Glucose 15 gm 10/02/22 15:05 Glucose Oral Gel 15 Gm Of Glucse In 37.5 Gm Tube PO PRN PRN Hypoglycemia Protocol Sodium Chloride 1,000 mls @ 100 mls/hr 10/02/22 14:50 10/03/22 04:05 Normal Saline Iv IV CONT 100 mls/hr .Q10H OSIEL Administration Dextrose 1,000 mls @ 100 mls/hr 10/02/22 15:05 Dextrose 5% 1,000 Ml IVPB PRN PRN Hypoglycemia Protocol Aminocaproic Acid 5,000 mg/ 270 mls @ 50 mls/hr 10/02/22 19:00 10/03/22 03:44 Dextrose IVPB 10/03/22 18:59 50 mls/hr .Q5H24M OSIEL Administration Insulin Aspart 2 - 5 units 10/02/22 17:00 10/02/22 18:04 Insulin Aspart (*Bkc) 100 Units/Ml SUB-Q Not Given TIDWM [facility] Protocol Insulin Aspart 1 - 2 units 10/02/22 21:00 10/02/22 21:35 Insulin Aspart (*Bkc) 100 Units/Ml SUB-Q Not Given [facility] Protocol Insulin Glargine 15 units 10/03/22 09:00 Insulin Glargine (*Bkc) 100 Units/Ml SUB-Q QAM [facility]
[2022-10-03 07:39] LABS: Glucose Point of Care 109 mg/dl (65-105)
[2022-10-03] MEDS: FOLIC ACID 1 MG TABLET PO (08:20)
[2022-10-03] MEDS: TAMSULOSIN HCL 0.4 MG CAPSULE 0.8 MG PO (08:20)
[2022-10-03] MEDS: FINASTERIDE 5 MG TABLET PO (08:21)
[2022-10-03] MEDS: carvediloL 1.56 MG TABLET PO ×2 (08:21→21:12)
[2022-10-03] MEDS: MAGNESIUM OXIDE 400 MG TABLET PO (08:22)
[2022-10-03] MEDS: ATORVASTATIN 20 MG TABLET PO (08:22)
[2022-10-03] MEDS: FERROUS SULFATE 325 MG TABLET DR BY MOUTH ×2 (08:22→18:59)
[2022-10-03] MEDS: PANTOPRAZOLE 40 MG TABLET PO (08:22)
[2022-10-03 09:11] LABS: Hematocrit 23.4 % (42.0-52.0); Hemoglobin 7.6 g/dL (14.0-18.0)
[2022-10-03 11:24] LABS: Glucose Point of Care 169 mg/dl (65-105)
--- NOTE | 2022-10-03 11:55 | PM.IMPN ---
Progress Note: A&P Assessment and Plan (1) Hematuria: Qualifiers: Hematuria type: gross Qualified Code(s): R31.0 - Gross hematuria Code(s): R31.9 - Hematuria, unspecified Status: Acute Assessment and Plan: Urology has been consulted. CBI no plan for procedure (2) Thrombocytopenia: Code(s): D69.6 - Thrombocytopenia, unspecified Status: Acute Assessment and Plan: May consider steroids. Hematology consult would be appreciated. (3) CAD (coronary artery disease): Code(s): I25.10 - Atherosclerotic heart disease of [place] coronary artery without angina pectoris Status: Chronic Assessment and Plan: Aspirin is on hold as the patient's platelets are any low. Continue with atorvastatin, Coreg, and Jardiance (4) Cirrhosis: Code(s): K74.60 - Unspecified cirrhosis of liver Status: Acute Assessment and Plan: GI consult was greatly be appreciated. Check ammonia level. (5) Stage 3b chronic kidney disease: Code(s): N18.32 - Chronic kidney disease, stage 3b Status: Chronic Assessment and Plan: The patient's creatinine is 1.86. BUN is 50. Continue to monitor. (6) BPH (benign prostatic hyperplasia): Code(s): N40.0 - Benign prostatic hyperplasia without lower urinary tract symptoms Status: Acute Assessment and Plan: Continue with tamsulosin and Proscar (7) Atrial fibrillation: Code(s): I48.91 - Unspecified atrial fibrillation Status: Acute Assessment and Plan: No anticoagulation due to his anemia and thrombocytopenia. Patient's heart rate is regular at this time. (8) Hyperlipidemia: Code(s): E78.5 - Hyperlipidemia, unspecified Status: Acute Assessment and Plan: Continue with atorvastatin. (9) Hypertension: Code(s): I10 - Essential (primary) hypertension Status: Chronic Assessment and Plan: Continue with Coreg. Subjective Date/time seen: 10/03/22 11:55 Interval history: no new complaints Exam Const: General: cooperative, alert, awake, Physically active and thin Nutritional Appearance: thin Orientation/consciousness: oriented to person, oriented to place, oriented to time and patient oriented x3 Limitations: no limitations Other: His very pale. HENMT: Head: normal to inspection, No palpable skull fracture present, normocephalic and atraumatic Ears: hearing grossly normal bilaterally and external ears normal Face/Nose/Sinus: Normal external nose present and Normal nares present Eyes: General: appearance normal, both eyes and all related structures Alignment and Position: alignment normal Periorbital: periorbital findings normal Eyelids: eyelids normal Conjunctivae: conjunctivae normal Sclera: sclerae normal Cornea: corneas normal Pupils: Equal, round and reactive pupils present and Pupil accommodation reflex normal EOM: EOMs intact bilaterally Neck: Neck: normal visual inspection, full ROM, no lymphadenopathy, trachea midline and supple Thyroid: thyroid normal Carotids: normal carotid upstroke Lymphatic: no lymphadenopathy noted Chest: Chest palpation & inspection: normal inspection of the chest Resp: Effort & Inspection: normal respiratory effort Auscultation: clear to auscultation bilaterally Percussion: percussion normal Cardio: Palpation: normal PMI Rate: regular rate Rhythm: regular rhythm Heart sounds: S1 normal heart sound present and S2 normal heart sound present Peripheral pulses: Peripheral pulses 2+ throughout GI: Inspection: normal to inspection Auscultation: normal bowel sounds Rectal Exam: deferred : General: Yes no CVA tenderness Back/Spine/Pelvis: Back: no CVA tenderness Cervical Spine: cervical ROM normal Thoracic/Lumbar Spine: thoracic and lumbar spine normal to inspection Pelvis: no pain with anterior-posterior compression Skin: General skin exam: normal color Lesions: no lesions Rashes:
[2022-10-03] MEDS: EMPAGLIFLOZIN 10 MG TABLET PO (12:17)
[2022-10-03] MEDS: INSULIN GLARGINE (*BKC) 100 UNITS/ML 15 UNITS SUB-Q (12:18)
--- NOTE | 2022-10-03 13:45 | WPDGICN ---
Assessment and Plan Assessment and plan (1) Cirrhosis: Code(s): K74.60 - Unspecified cirrhosis of liver Status: Acute Assessment and Plan: probably maurer related (history of DM, etc) will get hepatitis panel low salt diet (2) Pancytopenia: Code(s): D61.818 - Other pancytopenia Status: Acute Assessment and Plan: probably from cirrhosis hematology on board (3) Acute on chronic anemia: Code(s): D64.9 - Anemia, unspecified Status: Acute Assessment and Plan: drop hgb from hematuria and required 1 unit prbd no melena recent egd and colonoscopy earlier this year, found rectal varices (no esophageal) (4) Hematuria: Code(s): R31.9 - Hematuria, unspecified Status: Acute Assessment and Plan: improved by urology (5) Diabetes mellitus: Code(s): E11.9 - Type 2 diabetes mellitus without complications Status: Acute (6) Rectal varices: Code(s): K64.9 - Unspecified hemorrhoids Status: Acute GI Consult Note Consult date/time: 10/03/22 13:45 Reason for consult: cirrhosis, pancytopenia HPI: Jaspal Ruggiero is a 87 year old male with history of longstanding DM, HTN, BPH with recurrent hospitalizations since July 2022 because urological problem, had 02/2022 egd and colonoscopy as outpatient by Dr Park- egd normal, found to have non-bleeding rectal varices and diverticulosis, no colitis. Then admitted for pneumonia and pleural effusion that required thoracentesis earlier this year. Also diagnosed with cirrhosis and evaluated by Dr Abdi, CT imaging consistent with cirrhosis (patient denies alcohol abuse, hepatitis, etc- daughter says that sister diagnosed with maurer cirrhosis), did not get work up to explain etiology of cirrhosis given advanced age.?Recently discharged from [facility] on September 26 came back to the hospital with hematuria (had bladder retention and treated for UTI) then found Nelson catheter with blood, was started on CBI and now evaluated by urology.? CT scan showed cirrhosis of the liver with portal venous hypertension and moderate volume of ascites along with chronic bladder wall thickening likely secondary to chronic outlet obstruction.?Nelson is clear now and feeling better. Review of Systems Constitutional: Constitutional: Denies chills Eyes: Eyes: Denies blurry vision ENT: Reports Normal hearing present Cardiovascular: Cardiovascular: Denies chest pain Respiratory: Respiratory: Denies cough Gastrointestinal: Gastrointestinal: Denies abdominal pain and Denies nausea Genitourinary: Genitourinary: Reports hematuria Musculoskeletal: Musculoskeletal: Denies myalgias Integumentary/Breasts: Skin/Breast: Denies rash Psychiatric: Psychiatric: Denies behavioral changes Hematologic/Lymphatic: Hematologic/Lymphatic: Reports easy bleeding and Reports easy bruising PMFSH Past Medical History Medical History (Updated 10/03/22 @ 13:55 by Karlos Spencer MD) Acute on chronic anemia Acute UTI (urinary tract infection) BPH (benign prostatic hyperplasia) CAD (coronary artery disease) Dehydration, mild Gout History of colon polyps History of kidney stones Hyperglycemia due to diabetes mellitus Hyperlipidemia Hypertension Melena Pancytopenia Pneumonia Viral syndrome Surgical History Surgical History (Updated 10/02/22 @ 18:59 by Marco Luther MD) H/O colonoscopy with polypectomy H/O hernia repair H/O removal of cyst On his chest History of back surgery History of cardiac catheterization Hx of cholecystectomy Stented coronary artery 2015, and 2017 Family History Family History Father Diabetes mellitus Heart disease Acute myocardial infarction Sibling Diabetes mellitus Social History Social History (Updated 10/02/22 @ 15:19 by Anastasia Kim NP) Social History: The patient lives with his and has 2 Children. P
--- NOTE | 2022-10-03 14:55 | PCPTNOTE ---
Pt has active bedrest orders - will attempt to contact hospitalist regarding bedrest orders. Will make RN aware.
[2022-10-03 16:52] LABS: Glucose Point of Care 186 mg/dl (65-105)
[2022-10-03 16:58] LABS: Appearance Urine Turbid (Clear); Bacteria Urine 4+ /hpf; Bilirubin Urine Negative (Negative); Blood Urine 3+ (Negative); Color Urine Yellow (Yellow); Glucose Urine UA 3+ mg/dL (Negative); Ketones Urine Negative (Negative); Leukocyte Esterase Ur 3+ LEU/UL (Negative); Nitrate Urine Negative (Negative); Non Pathogenic Casts 0-2; Protein Urine 2+ mg/dL (Negative); Specific Grav Ur 1.018 (1.001-1.035); Squamous Epithelial Cell Urine None seen /hpf (Few); WBC Urine >100 /hpf; pH Urine 5.5 (5.0-9.0)
[2022-10-03 17:17] LABS: Add Urine Microscopic? YES
--- NOTE | 2022-10-03 20:04 | PC.NURSE ---
This pt was on CBI at beginning of shift, but was draining clear. Sami saw this and dialed back the CBI fluids, as well as cancelled the cystoscopy scheduled for the day. Amicar continued per order. Juliocesar stated that when bleeding stopped we could discontinue, which was Ashkan's plan, as well. Communicated with pharmacy that we did not need a new bag, unless bleeding started again, at which point they communicated we would likely need a new order since it would be outside of the 24 hour window. Fluids steadily decreased until no bleeding or clots present. UA sent down. The PCT did not chart output on the worksheet, but stated that she charted in the I&O. Will add in the intake and amount of output I recorded, in order to try and come up with a somewhat accurate I/O. Pt c/o pain to the left lower abd/pelvis area. Pt bladder scanned and showed less than 100mls. Notified Parchris (as pt stated that Sami had told him this was related to bladder/prostate in past; pt somewhat confused); Parchris stated he didn't state that and pain would be more midline. Called Juliocesar who ordered acetaminophen and said he would follow-up if pain persists. Informed night RN, as well.
[2022-10-03 21:05] LABS: Glucose Point of Care 153 mg/dl (65-105)
[2022-10-04] VITALS (11 sets, daily range): BP systolic 100–113; BP diastolic 60–66; PULSE 61–88; RESP 16–20; TEMP 36.1–36.4; O2SAT 98–100
[2022-10-04] MEDS: SODIUM CHLORIDE 0.9% IV 1,000 ML 100 ML IV CONT ×3 (01:42→20:55)
[2022-10-04 08:17] LABS: Hepatitis B Surface Antigen Negative (Negative)
[2022-10-04 08:19] LABS: Glucose Point of Care 103 mg/dl (65-105)
[2022-10-04 08:23] LABS: HAV RESULT Negative (Negative); Hepatitis B Core IgM Result Negative (Negative)
[2022-10-04 08:35] LABS: Hepatitis C Virus Antibody Negative (Negative)
[2022-10-04 08:52] LABS: Basophils Percent Auto 0.8 % (0.2-1.2); Eosinophils Absolute Auto 0.1 K/mm3 (0-0.3); Eosinophils Percent Auto 3.6 % (0-4.4); Hematocrit 26.4 % (42.0-52.0); Hemoglobin 8.2 g/dL (14.0-18.0); Immature Granulocyte Absolute 0.02 K/mm3 (0.00-0.031); Immature Granulocyte Percent A 0.5 % (0-0.5); Immature Platelet Fraction Pct 2.8 % (0.9-11.2); Lymphocytes Absolute Auto 0.98 K/mm3 (0.9-3.2); Lymphocytes Percent Auto 26.8 % (18.3-44.2); Mean Corpuscular HGB Conc 31.1 g/dl (32-36); Mean Corpuscular Hemoglobin 32.8 pg (26-34); Mean Corpuscular Volume 105.6 fl (80-100); Mean Platelet Volume 10.9 fl (7.4-10.4); Monocytes Absolute Auto 0.4 K/mm3 (0.1-0.6); Monocytes Percent Auto 10.1 % (2.6-8.5); Neutrophils Absolute Auto 2.1 K/mm3 (1.3-6.7); Neutrophils Percent Auto 58.2 % (45.5-73.1); Platelet Count Result 75 k/mm3 (150-375); Red Cell Distribution Width 19.4 % (11.5-14.5); White Blood Count 3.7 K/mm3 (4.5-10.0)
[2022-10-04 09:15] LABS: Anisocytosis 2+ (NORMAL); Macrocytosis 1+ (NORMAL); Platelet Estimate Decreased (Adequate)
[2022-10-04 09:16] LABS: Burr Cells 1+ (NORMAL); Schistocytes None Seen (NORMAL)
[2022-10-04] MEDS: ATORVASTATIN 20 MG TABLET PO (09:43)
[2022-10-04] MEDS: TAMSULOSIN HCL 0.4 MG CAPSULE 0.8 MG PO (09:43)
[2022-10-04] MEDS: MAGNESIUM OXIDE 400 MG TABLET PO (09:43)
[2022-10-04] MEDS: FOLIC ACID 1 MG TABLET PO (09:43)
[2022-10-04] MEDS: EMPAGLIFLOZIN 10 MG TABLET PO (09:43)
[2022-10-04] MEDS: carvediloL 1.56 MG TABLET PO ×2 (09:43→20:49)
[2022-10-04] MEDS: PANTOPRAZOLE 40 MG TABLET PO (09:43)
[2022-10-04] MEDS: FERROUS SULFATE 325 MG TABLET DR BY MOUTH ×2 (09:44→17:25)
[2022-10-04] MEDS: FINASTERIDE 5 MG TABLET PO (09:44)
[2022-10-04] MEDS: INSULIN GLARGINE (*BKC) 100 UNITS/ML 15 UNITS SUB-Q (11:01)
--- NOTE | 2022-10-04 11:19 | PM.IMPN ---
Progress Note: A&P Assessment and Plan (1) Hematuria: Qualifiers: Hematuria type: gross Qualified Code(s): R31.0 - Gross hematuria Code(s): R31.9 - Hematuria, unspecified Status: Acute Assessment and Plan: Urology has been consulted. CBI no plan for procedure (2) Thrombocytopenia: Code(s): D69.6 - Thrombocytopenia, unspecified Status: Acute Assessment and Plan: Monitor platelets (3) CAD (coronary artery disease): Code(s): I25.10 - Atherosclerotic heart disease of [place] coronary artery without angina pectoris Status: Chronic Assessment and Plan: Aspirin is on hold as the patient's platelets are any low. Continue with atorvastatin, Coreg, and Jardiance (4) Cirrhosis: Code(s): K74.60 - Unspecified cirrhosis of liver Status: Acute Assessment and Plan: GI consult was greatly be appreciated. Check ammonia level. (5) Stage 3b chronic kidney disease: Code(s): N18.32 - Chronic kidney disease, stage 3b Status: Chronic Assessment and Plan: The patient's creatinine is 1.86. BUN is 50. Continue to monitor. (6) BPH (benign prostatic hyperplasia): Code(s): N40.0 - Benign prostatic hyperplasia without lower urinary tract symptoms Status: Acute Assessment and Plan: Continue with tamsulosin and Proscar (7) Atrial fibrillation: Code(s): I48.91 - Unspecified atrial fibrillation Status: Acute Assessment and Plan: No anticoagulation due to his anemia and thrombocytopenia. Patient's heart rate is regular at this time. (8) Hyperlipidemia: Code(s): E78.5 - Hyperlipidemia, unspecified Status: Acute Assessment and Plan: Continue with atorvastatin. (9) Hypertension: Code(s): I10 - Essential (primary) hypertension Status: Chronic Assessment and Plan: Continue with Coreg. Subjective Date/time seen: 10/04/22 11:19 Interval history: No new complaints Exam Const: General: cooperative, alert, awake, Physically active and thin Nutritional Appearance: thin Orientation/consciousness: oriented to person, oriented to place, oriented to time and patient oriented x3 Limitations: no limitations Other: His very pale. HENMT: Head: normal to inspection, No palpable skull fracture present, normocephalic and atraumatic Ears: hearing grossly normal bilaterally and external ears normal Face/Nose/Sinus: Normal external nose present and Normal nares present Eyes: General: appearance normal, both eyes and all related structures Alignment and Position: alignment normal Periorbital: periorbital findings normal Eyelids: eyelids normal Conjunctivae: conjunctivae normal Sclera: sclerae normal Cornea: corneas normal Pupils: Equal, round and reactive pupils present and Pupil accommodation reflex normal EOM: EOMs intact bilaterally Neck: Neck: normal visual inspection, full ROM, no lymphadenopathy, trachea midline and supple Thyroid: thyroid normal Carotids: normal carotid upstroke Lymphatic: no lymphadenopathy noted Chest: Chest palpation & inspection: normal inspection of the chest Resp: Effort & Inspection: normal respiratory effort Auscultation: clear to auscultation bilaterally Percussion: percussion normal Cardio: Palpation: normal PMI Rate: regular rate Rhythm: regular rhythm Heart sounds: S1 normal heart sound present and S2 normal heart sound present Peripheral pulses: Peripheral pulses 2+ throughout GI: Inspection: normal to inspection Auscultation: normal bowel sounds Rectal Exam: deferred : General: Yes no CVA tenderness Back/Spine/Pelvis: Back: no CVA tenderness Cervical Spine: cervical ROM normal Thoracic/Lumbar Spine: thoracic and lumbar spine normal to inspection Pelvis: no pain with anterior-posterior compression Skin: General skin exam: normal color Lesions: no lesions Rashes: no rashes Trauma: no lacerations or abrasions
--- NOTE | 2022-10-04 12:04 | PCPTNOTE ---
On 10/04/22, the student, DIANNA Mccall, provided care and completed [facility] documentation on this patient. I have reviewed the student's documentation and agree with the findings.
[2022-10-04 12:24] LABS: Glucose Point of Care 138 mg/dl (65-105)
--- NOTE | 2022-10-04 13:31 | WPDGIPROGNO ---
Progress Note: A&P Assessment and Plan (1) Cirrhosis: Code(s): K74.60 - Unspecified cirrhosis of liver Status: Acute Assessment and Plan: probably maurer related hepatitis panel negative he will need liver imaging at least every 6 months for hcc surveillance and monitor labs, he can follow-up in office after discharge (2) Pancytopenia: Code(s): D61.818 - Other pancytopenia Status: Acute Assessment and Plan: probably from cirrhosis hematology on board (3) Hematuria: Qualifiers: Hematuria type: gross Qualified Code(s): R31.0 - Gross hematuria Code(s): R31.9 - Hematuria, unspecified Status: Acute Assessment and Plan: resolved urology on board soler is present (4) CAD (coronary artery disease): Code(s): I25.10 - Atherosclerotic heart disease of [place] coronary artery without angina pectoris Status: Chronic (5) UTI (urinary tract infection): Code(s): N39.0 - Urinary tract infection, site not specified Status: Acute Subjective Date/time seen: 10/04/22 13:31 Interval history: no new changes, he is eating regular food. Family member at beside. soler without more hematuria Review of Systems Review of Systems: All systems reviewed & are unremarkable except as noted in HPI and below Exam Const: General: cooperative, alert and awake Nutritional Appearance: thin Orientation/consciousness: oriented to person and oriented to place HENMT: Head: normal to inspection, normocephalic and atraumatic Eyes: General: appearance normal, both eyes and all related structures Pupils: Equal, round and reactive pupils present Neck: Neck: full ROM and supple Chest: Chest palpation & inspection: normal inspection of the chest Resp: Effort & Inspection: normal respiratory effort Auscultation: clear to auscultation bilaterally Cardio: Rate: regular rate Rhythm: regular rhythm GI: Inspection: normal to inspection GI Palp: Yes Soft to palpation, No Tenderness to palpation present (GI) and No Guarding due to palpation present (GI) Auscultation: normal bowel sounds Urinary Catheter: Urinary Catheter: patent and draining Back/Spine/Pelvis: Cervical Spine: cervical ROM normal Skin: Rashes: no rashes Neuro: General: oriented to person, oriented to place, oriented to time and patient oriented x3 Cranial nerves: Yes Equal, round and reactive pupils present and Yes Normal hearing present Cognition (Neuro): normal cognition Speech: normal speech Sensory Exam: normal sensation Other: Generalized weakness Extrem: General: normal to inspection Psych: Appearance: grossly normal Mental Status: mental status grossly normal Speech and movement: Normal speech and movement present Affect: normal affect Attitude: cooperative Thought process: Normal thought process present Thought content: Yes Normal thought content present Insight: Fair insight present (Psych) Judgement: Fair judgement present (Psych) Objective Data Vital Signs Vital Signs: Vital Signs - 24 hr 10/03/22 14:00 10/03/22 16:00 10/03/22 21:12 Temperature 96.8 F L Pulse Rate 64 68 69 Respiratory Rate 16 Blood Pressure 102/57 L Pulse Oximetry 100 Oxygen Delivery 10/03/22 20:00 10/03/22 20:00 10/03/22 22:00 Temperature 97.6 F Pulse Rate 67 69 70 Respiratory Rate 16 16 Blood Pressure 95/61 L Pulse Oximetry 100 100 Oxygen Delivery Room Air 10/04/22 00:00 10/04/22 04:00 10/04/22 06:00 Temperature 97 F L Pulse Rate 65 61 66 Respiratory Rate 16 Blood Pressure 113/66 Pulse Oximetry 100 Oxygen Delivery 10/04/22 09:22 10/04/22 09:43 10/04/22 09:35 Temperature Pulse Rate 75 Respiratory Rate Blood Pressure Pulse Oximetry Oxygen Delivery Room Air Room Air 10/04/22 11:40 Temperature Pulse Rate Respiratory Rate Blood Pressure Pulse Oximetry Oxygen Delivery Room Air Intake/Output Intake/
--- NOTE | 2022-10-04 15:47 | WPDUROPN2 ---
Progress Note: A&P Assessment and Plan (1) Hematuria: Code(s): R31.9 - Hematuria, unspecified Status: Acute Assessment and Plan: No blood off CBI. Ok to continue to push fluids. Will plan to remove soler at 0500 for voiding trial. Catheter is likely causing more irritation at this point. Patient agrees to do voiding trial. (2) UTI (urinary tract infection): Code(s): N39.0 - Urinary tract infection, site not specified Status: Acute Assessment and Plan: Continue IV antibiotics, tailor to cutlure results. Subjective Subjective Date/Time Seen: 10/04/22 15:47 Patient doing well off CBI. Urine is cloudy/milky in appearance but draining to gravity. Patient is c/o bladder spasms. No blood present. S/P Cystoscopy with Clot Evacuation and Cauterization of Prostatic Urethra 09/22/[address] Gallardo Review of Systems Cardiovascular: Cardiovascular: Denies chest pain Respiratory: Respiratory: Reports no additional respiratory complaints Gastrointestinal: Gastrointestinal: Denies abdominal pain, Denies nausea and Denies vomiting Genitourinary: Genitourinary: Denies hematuria, Denies flank pain, Denies urinary frequency, Denies urinary hesitancy, Denies urinary incontinence and Denies urinary urgency Exam Const: General: cooperative and comfortable Resp: Effort & Inspection: normal respiratory effort Cardio: Rate: regular rate GI: GI Palp: Yes Soft to palpation and No Tenderness to palpation present (GI) : General: Yes no CVA tenderness Urinary Catheter: Urinary Catheter: patent and draining, urine cloudy and urine dark Extrem: Right lower extremity: no edema Left lower extremity: no edema Objective Data Vital Signs Vital Signs: Vital Signs - 24 hr 10/03/22 16:00 10/03/22 21:12 10/03/22 20:00 Temperature Pulse Rate 68 69 67 Respiratory Rate Blood Pressure Pulse Oximetry Oxygen Delivery 10/03/22 20:00 10/03/22 22:00 10/04/22 00:00 Temperature 97.6 F Pulse Rate 69 70 65 Respiratory Rate 16 16 Blood Pressure 95/61 L Pulse Oximetry 100 100 Oxygen Delivery Room Air 10/04/22 04:00 10/04/22 06:00 10/04/22 09:22 Temperature 97 F L Pulse Rate 61 66 Respiratory Rate 16 Blood Pressure 113/66 Pulse Oximetry 100 Oxygen Delivery Room Air 10/04/22 09:43 10/04/22 09:35 10/04/22 11:40 Temperature Pulse Rate 75 Respiratory Rate Blood Pressure Pulse Oximetry Oxygen Delivery Room Air Room Air Intake/Output Intake/Output: Intake & Output 10/01/22 10/02/22 10/03/22 10/04/22 23:59 23:59 23:59 23:59 Intake Total 4740 48343 1730 Output Total 7000 51365 600 Balance -2260 1580 1130 Meds/Results Medications: Active Medications Generic Name Dose Route Start Last Admin Trade Name Freq PRN Reason Stop Dose Admin Acetaminophen 650 mg 10/03/22 17:55 Acetaminophen 325 Mg Tablet PO Q6H PRN Pain or Fever Atorvastatin Calcium 20 mg 10/03/22 09:00 10/04/22 09:43 Atorvastatin 20 Mg Tablet PO 20 mg DAILY OSIEL Administration Carvedilol 1.56 mg 10/02/22 22:15 10/04/22 09:43 Carvedilol 1.56 Mg Tablet PO 1.56 mg Q12HR OSIEL Administration Dextrose 12.5 gm 10/02/22 15:05 Dextrose 50% 25 Gm/50 Ml Syringe IV PUSH PRN PRN Hypoglycemia Protocol Empagliflozin 10 mg 10/03/22 09:00 10/04/22 09:43 Empagliflozin 10 Mg Tablet PO 10 mg DAILY OSIEL Administration Ferrous Sulfate 325 mg 10/03/22 08:00 10/04/22 09:44 Ferrous Sulfate [address] BY MOUTH 325 mg BIDWM OSIEL Administration Finasteride 5 mg 10/03/22 09:00 10/04/22 09:44 Finasteride 5 Mg Tablet PO 5 mg QAM OSIEL Administration Folic Acid 1 mg 10/03/22 09:00 10/04/22 09:43 Folic Acid 1 Mg Tablet PO 1 mg DAILY OSIEL Administration Glucagon 1 mg 10/02/22 15:05 Glucagon For Inj 1 Mg Vial IM PRN PRN Hypoglycemia Protocol Glucose 15 gm
[2022-10-04 16:48] LABS: Glucose Point of Care 163 mg/dl (65-105)
--- NOTE | 2022-10-04 18:51 | PC.NURSE ---
I have reviewed and agree with Liudmila AREVALO's charting.
[2022-10-04 21:11] LABS: Glucose Point of Care 108 mg/dl (65-105)
[2022-10-05] VITALS (13 sets, daily range): BP systolic 112–139; BP diastolic 73–83; PULSE 62–88; RESP 16–20; TEMP 35.6–36.4; O2SAT 96–100
[2022-10-05 07:59] LABS: Glucose Point of Care 114 mg/dl (65-105)
--- NOTE | 2022-10-05 08:39 | P.CDI_ITS ---
uti chronic soler CDI Query Clarification Request Urine culture from 10/03/22 grew > 100,000 Enterococcus species. Indwelling Soler catheter documented. Pt started on IV Ceftriaxone 1 GM Q 24 hours. Clarification request - UTI has been documented, chronic indwelling soler catheter documented. Please clarify if UTI is: * due to/associated with chronic indwelling soler catheter * not due to/associated with chronic indwelling soler catheter * unable to determine
--- NOTE | 2022-10-05 08:39 | WPDCDIQUERY2 ---
CDI Query Clarification Request Urine culture from 10/03/22 grew > 100,000 Enterococcus species. Indwelling Soler catheter documented. Pt started on IV Ceftriaxone 1 GM Q 24 hours. Clarification request - UTI has been documented, chronic indwelling soler catheter documented. Please clarify if UTI is: due to/associated with chronic indwelling soler catheter not due to/associated with chronic indwelling soler catheter unable to determine
[2022-10-05] MEDS: carvediloL 1.56 MG TABLET PO ×2 (08:45→20:34)
[2022-10-05] MEDS: FERROUS SULFATE 325 MG TABLET DR BY MOUTH ×2 (08:45→17:50)
[2022-10-05] MEDS: FINASTERIDE 5 MG TABLET PO (08:46)
[2022-10-05] MEDS: FOLIC ACID 1 MG TABLET PO (08:46)
[2022-10-05] MEDS: TAMSULOSIN HCL 0.4 MG CAPSULE 0.8 MG PO (08:46)
[2022-10-05] MEDS: ATORVASTATIN 20 MG TABLET PO (08:46)
[2022-10-05] MEDS: MAGNESIUM OXIDE 400 MG TABLET PO (08:47)
[2022-10-05] MEDS: EMPAGLIFLOZIN 10 MG TABLET PO (08:47)
[2022-10-05] MEDS: PANTOPRAZOLE 40 MG TABLET PO (08:47)
[2022-10-05] MEDS: INSULIN GLARGINE (*BKC) 100 UNITS/ML 15 UNITS SUB-Q (08:48)
[2022-10-05] MEDS: SODIUM CHLORIDE 0.9% IV 1,000 ML 100 ML IV CONT ×2 (11:03→12:15)
--- NOTE | 2022-10-05 11:23 | PCPTNOTE ---
Patient declined PT this morning stating he was not having a good morning. Patient requests PT return later today. PT will continue to follow per plan of care.
--- NOTE | 2022-10-05 11:39 | PM.IMPN ---
Progress Note: A&P Assessment and Plan (1) Hematuria: Qualifiers: Hematuria type: gross Qualified Code(s): R31.0 - Gross hematuria Code(s): R31.9 - Hematuria, unspecified Status: Acute Assessment and Plan: Urology has been consulted. CBI no plan for procedure (2) Thrombocytopenia: Code(s): D69.6 - Thrombocytopenia, unspecified Status: Acute Assessment and Plan: Monitor platelets (3) CAD (coronary artery disease): Code(s): I25.10 - Atherosclerotic heart disease of [place] coronary artery without angina pectoris Status: Chronic Assessment and Plan: Aspirin is on hold as the patient's platelets are any low. Continue with atorvastatin, Coreg, and Jardiance (4) Cirrhosis: Code(s): K74.60 - Unspecified cirrhosis of liver Status: Acute Assessment and Plan: GI consult was greatly be appreciated. Check ammonia level. (5) Stage 3b chronic kidney disease: Code(s): N18.32 - Chronic kidney disease, stage 3b Status: Chronic Assessment and Plan: The patient's creatinine is 1.86. BUN is 50. Continue to monitor. (6) BPH (benign prostatic hyperplasia): Code(s): N40.0 - Benign prostatic hyperplasia without lower urinary tract symptoms Status: Acute Assessment and Plan: Continue with tamsulosin and Proscar (7) Atrial fibrillation: Code(s): I48.91 - Unspecified atrial fibrillation Status: Acute Assessment and Plan: No anticoagulation due to his anemia and thrombocytopenia. Patient's heart rate is regular at this time. (8) Hyperlipidemia: Code(s): E78.5 - Hyperlipidemia, unspecified Status: Acute Assessment and Plan: Continue with atorvastatin. (9) Hypertension: Code(s): I10 - Essential (primary) hypertension Status: Chronic Assessment and Plan: Continue with Coreg. (10) UTI (urinary tract infection): Code(s): N39.0 - Urinary tract infection, site not specified Status: Acute Assessment and Plan: abx await sensitivities Subjective Date/time seen: 10/05/22 11:39 Interval history: No complaints Exam Const: General: cooperative, alert, awake, Physically active and thin Nutritional Appearance: thin Orientation/consciousness: oriented to person, oriented to place, oriented to time and patient oriented x3 Limitations: no limitations Other: His very pale. HENMT: Head: normal to inspection, No palpable skull fracture present, normocephalic and atraumatic Ears: hearing grossly normal bilaterally and external ears normal Face/Nose/Sinus: Normal external nose present and Normal nares present Eyes: General: appearance normal, both eyes and all related structures Alignment and Position: alignment normal Periorbital: periorbital findings normal Eyelids: eyelids normal Conjunctivae: conjunctivae normal Sclera: sclerae normal Cornea: corneas normal Pupils: Equal, round and reactive pupils present and Pupil accommodation reflex normal EOM: EOMs intact bilaterally Neck: Neck: normal visual inspection, full ROM, no lymphadenopathy, trachea midline and supple Thyroid: thyroid normal Carotids: normal carotid upstroke Lymphatic: no lymphadenopathy noted Chest: Chest palpation & inspection: normal inspection of the chest Resp: Effort & Inspection: normal respiratory effort Auscultation: clear to auscultation bilaterally Percussion: percussion normal Cardio: Palpation: normal PMI Rate: regular rate Rhythm: regular rhythm Heart sounds: S1 normal heart sound present and S2 normal heart sound present Peripheral pulses: Peripheral pulses 2+ throughout GI: Inspection: normal to inspection Auscultation: normal bowel sounds Rectal Exam: deferred : General: Yes no CVA tenderness Back/Spine/Pelvis: Back: no CVA tenderness Cervical Spine: cervical ROM normal Thoracic/Lumbar Spine: thoracic and lumbar spine normal to in
[2022-10-05 11:57] LABS: Glucose Point of Care 114 mg/dl (65-105)
[2022-10-05] MEDS: FUROSEMIDE INJ 40 MG/4 ML VIAL 20 MG IV PUSH (13:38)
--- NOTE | 2022-10-05 16:01 | WPDUROPN2 ---
Progress Note: A&P Assessment and Plan (1) Hematuria: Qualifiers: Hematuria type: gross Qualified Code(s): R31.0 - Gross hematuria Code(s): R31.9 - Hematuria, unspecified Status: Acute Assessment and Plan: Resolved. (2) UTI (urinary tract infection): Code(s): N39.0 - Urinary tract infection, site not specified Status: Acute Assessment and Plan: VRE growing on Culture, continue IV antibiotics. Patient urinating clear urine with small blood clots today. Obtain bladder scan to determine PVR and call with results. Keep soler out if PVR is <300cc. Subjective Subjective Date/Time Seen: 10/05/22 16:01 Interval history: Patient has had clear urine overnight and catheter was removed early this morning for a voiding trial. Review of Systems Cardiovascular: Cardiovascular: Reports no additional cardiovascular complaints Respiratory: Respiratory: Reports no additional respiratory complaints Gastrointestinal: Gastrointestinal: Denies abdominal pain, Denies nausea and Denies vomiting Genitourinary: Genitourinary: Denies hematuria, Denies dysuria, Denies flank pain, Denies urinary frequency, Denies urinary hesitancy, Denies urinary incontinence and Denies urinary urgency Exam Const: General: cooperative and comfortable Resp: Effort & Inspection: normal respiratory effort Cardio: Rate: regular rate GI: GI Palp: Yes Soft to palpation and No Tenderness to palpation present (GI) : General: Yes no CVA tenderness Extrem: Right lower extremity: no edema Left lower extremity: no edema Objective Data Vital Signs Vital Signs: Vital Signs - 24 hr 10/04/22 20:49 10/04/22 20:00 10/04/22 20:00 Temperature Pulse Rate 71 74 71 Respiratory Rate 16 Blood Pressure Pulse Oximetry 100 Oxygen Delivery Room Air 10/04/22 22:00 10/05/22 00:00 10/05/22 04:00 Temperature 97.4 F L Pulse Rate 72 71 71 Respiratory Rate 20 Blood Pressure 103/60 Pulse Oximetry 98 Oxygen Delivery 10/05/22 06:00 10/05/22 08:45 10/05/22 08:00 Temperature 96.1 F L Pulse Rate 69 70 70 Respiratory Rate 20 Blood Pressure 112/73 Pulse Oximetry 96 Oxygen Delivery 10/05/22 08:45 10/05/22 13:15 10/05/22 12:00 Temperature Pulse Rate 80 Respiratory Rate Blood Pressure Pulse Oximetry 100 Oxygen Delivery Room Air Room Air 10/05/22 14:40 Temperature 97.6 F Pulse Rate 75 Respiratory Rate 16 Blood Pressure 139/79 Pulse Oximetry 100 Oxygen Delivery Intake/Output Intake/Output: Intake & Output 10/02/22 10/03/22 10/04/22 10/05/22 23:59 23:59 23:59 23:59 Intake Total 4740 11161 3320 2580 Output Total 7000 28362 600 200 Balance -2260 1630 2720 2380 Meds/Results Medications: Active Medications Generic Name Dose Route Start Last Admin Trade Name Freq PRN Reason Stop Dose Admin Acetaminophen 650 mg 10/03/22 17:55 Acetaminophen 325 Mg Tablet PO Q6H PRN Pain or Fever Atorvastatin Calcium 20 mg 10/03/22 09:00 10/05/22 08:46 Atorvastatin 20 Mg Tablet PO 20 mg DAILY OSIEL Administration Carvedilol 1.56 mg 10/02/22 22:15 10/05/22 08:45 Carvedilol 1.56 Mg Tablet PO 1.56 mg Q12HR OSEIL Administration Dextrose 12.5 gm 10/02/22 15:05 Dextrose 50% 25 Gm/50 Ml Syringe IV PUSH PRN PRN Hypoglycemia Protocol Empagliflozin 10 mg 10/03/22 09:00 10/05/22 08:47 Empagliflozin 10 Mg Tablet PO 10 mg DAILY OSIEL Administration Ferrous Sulfate 325 mg 10/03/22 08:00 10/05/22 08:45 Ferrous Sulfate [address] BY MOUTH 325 mg BIDWM OSIEL Administration Finasteride 5 mg 10/03/22 09:00 10/05/22 08:46 Finasteride 5 Mg Tablet PO 5 mg QAM OSIEL Administration Folic Acid 1 mg 10/03/22 09:00 10/05/22 08:46 Folic Acid 1 Mg Tablet PO 1 mg DAILY OSIEL Administration Glucagon 1 mg 10/02/22 15:05 Glucagon For Inj 1 Mg Vial IM PRN PRN H
[2022-10-05 17:04] LABS: Glucose Point of Care 130 mg/dl (65-105)
[2022-10-05] MEDS: LINEZOLID 600 MG TABLET PO (17:49)
--- NOTE | 2022-10-05 18:43 | PC.NURSE ---
I reviewed Liudmila Jurado's charting and agree with her charting
[2022-10-06] VITALS (11 sets, daily range): BP systolic 100–112; BP diastolic 53–63; PULSE 74–103; RESP 16–22; TEMP 36.3–36.6; O2SAT 100
[2022-10-06] MEDS: FUROSEMIDE INJ 40 MG/4 ML VIAL IV PUSH (01:05)
[2022-10-06 03:11] LABS: Glucose Point of Care 148 mg/dl (65-105)
[2022-10-06 07:55] LABS: Glucose Point of Care 114 mg/dl (65-105)
[2022-10-06 09:25] LABS: Anion Gap 8 mmol/L (8-16); Blood Urea Nitrogen 37 mg/dL (9-20); Calcium 7.3 mg/dL (8.4-10.2); Carbon Dioxide 17 mmol/L (22-30); Chloride 111 mmol/L (98-107); Estimated CRCL calculation 23 ml/min; Estimated Glomerular Filt Rate 34; Glucose 141 mg/dL (65-110); Potassium 2.9 mmol/L (3.4-5.0); Sodium 136 mmol/L (137-145)
--- NOTE | 2022-10-06 10:12 | PCOTNOTE ---
Attempted to see Patient this A.M. Patient stated he is in 10/10 abdominal pain and horrific with movement. He stated he has had a set back and refuses any services. Patient currently having his bladder irrigation.
[2022-10-06] MEDS: INSULIN GLARGINE (*BKC) 100 UNITS/ML 15 UNITS SUB-Q (10:25)
[2022-10-06] MEDS: MAGNESIUM OXIDE 400 MG TABLET PO (10:28)
[2022-10-06] MEDS: LINEZOLID 600 MG TABLET PO ×2 (10:28→17:17)
[2022-10-06] MEDS: TAMSULOSIN HCL 0.4 MG CAPSULE 0.8 MG PO (10:28)
[2022-10-06] MEDS: ATORVASTATIN 20 MG TABLET PO (10:28)
[2022-10-06] MEDS: FOLIC ACID 1 MG TABLET PO (10:28)
[2022-10-06] MEDS: carvediloL 1.56 MG TABLET PO ×2 (10:28→20:42)
[2022-10-06] MEDS: FERROUS SULFATE 325 MG TABLET DR BY MOUTH ×2 (10:29→17:17)
[2022-10-06] MEDS: PANTOPRAZOLE 40 MG TABLET PO (10:29)
[2022-10-06] MEDS: FINASTERIDE 5 MG TABLET PO (10:29)
[2022-10-06] MEDS: EMPAGLIFLOZIN 10 MG TABLET PO (10:29)
--- NOTE | 2022-10-06 10:54 | PCPTNOTE ---
Patient declined PT at this time. Patient reports 10 out of 10 pain in his abdomen when he tries to move. Reports 0 out of 10 pain at rest. Patient educated in the importance of participating in PT to improve strength and mobility. Patient voices understanding and states he would participate if he was not in pain. PT will continue to follow per plan of care.
[2022-10-06 11:49] LABS: Glucose Point of Care 146 mg/dl (65-105)
--- NOTE | 2022-10-06 13:44 | PCPTNOTE ---
Attempted PT again this afternoon. Patient states he feels a little bit better. Patient requests therapy return tomorrow.
--- NOTE | 2022-10-06 13:51 | PM.IMPN ---
Progress Note: A&P Assessment and Plan (1) Hematuria: Qualifiers: Hematuria type: gross Qualified Code(s): R31.0 - Gross hematuria Code(s): R31.9 - Hematuria, unspecified Status: Acute Assessment and Plan: Nelson remains. Failed voiding trial. (2) Thrombocytopenia: Code(s): D69.6 - Thrombocytopenia, unspecified Status: Acute Assessment and Plan: Monitor platelets (3) CAD (coronary artery disease): Code(s): I25.10 - Atherosclerotic heart disease of [place] coronary artery without angina pectoris Status: Chronic Assessment and Plan: Aspirin is on hold as the patient's platelets are any low. Continue with atorvastatin, Coreg, and Jardiance (4) Cirrhosis: Code(s): K74.60 - Unspecified cirrhosis of liver Status: Acute Assessment and Plan: GI consult was greatly be appreciated. Check ammonia level. (5) Stage 3b chronic kidney disease: Code(s): N18.32 - Chronic kidney disease, stage 3b Status: Chronic Assessment and Plan: The patient's creatinine is 1.86. BUN is 50. Continue to monitor. (6) BPH (benign prostatic hyperplasia): Code(s): N40.0 - Benign prostatic hyperplasia without lower urinary tract symptoms Status: Acute Assessment and Plan: Continue with tamsulosin and Proscar (7) Atrial fibrillation: Code(s): I48.91 - Unspecified atrial fibrillation Status: Acute Assessment and Plan: No anticoagulation due to his anemia and thrombocytopenia. Patient's heart rate is regular at this time. (8) Hyperlipidemia: Code(s): E78.5 - Hyperlipidemia, unspecified Status: Acute Assessment and Plan: Continue with atorvastatin. (9) Hypertension: Code(s): I10 - Essential (primary) hypertension Status: Chronic Assessment and Plan: Continue with Coreg. (10) UTI (urinary tract infection): Code(s): N39.0 - Urinary tract infection, site not specified Status: Acute Assessment and Plan: Linezolid Subjective Date/time seen: 10/06/22 13:51 Interval history: No complaints Exam Const: General: cooperative, alert, awake, Physically active and thin Nutritional Appearance: thin Orientation/consciousness: oriented to person, oriented to place, oriented to time and patient oriented x3 Limitations: no limitations Other: His very pale. HENMT: Head: normal to inspection, No palpable skull fracture present, normocephalic and atraumatic Ears: hearing grossly normal bilaterally and external ears normal Face/Nose/Sinus: Normal external nose present and Normal nares present Eyes: General: appearance normal, both eyes and all related structures Alignment and Position: alignment normal Periorbital: periorbital findings normal Eyelids: eyelids normal Conjunctivae: conjunctivae normal Sclera: sclerae normal Cornea: corneas normal Pupils: Equal, round and reactive pupils present and Pupil accommodation reflex normal EOM: EOMs intact bilaterally Neck: Neck: normal visual inspection, full ROM, no lymphadenopathy, trachea midline and supple Thyroid: thyroid normal Carotids: normal carotid upstroke Lymphatic: no lymphadenopathy noted Chest: Chest palpation & inspection: normal inspection of the chest Resp: Effort & Inspection: normal respiratory effort Auscultation: clear to auscultation bilaterally Percussion: percussion normal Cardio: Palpation: normal PMI Rate: regular rate Rhythm: regular rhythm Heart sounds: S1 normal heart sound present and S2 normal heart sound present Peripheral pulses: Peripheral pulses 2+ throughout GI: Inspection: normal to inspection Auscultation: normal bowel sounds Rectal Exam: deferred : General: Yes no CVA tenderness Back/Spine/Pelvis: Back: no CVA tenderness Cervical Spine: cervical ROM normal Thoracic/Lumbar Spine: thoracic and lumbar spine normal to inspection Pelvis: no pain with ante
--- NOTE | 2022-10-06 16:11 | WPDUROPN2 ---
Progress Note: A&P Assessment and Plan (1) Hematuria: Code(s): R31.9 - Hematuria, unspecified Status: Acute Assessment and Plan: Resolved, urine is dark and cloudy, ok to run CBI slow until clear and turn off. Patient will keep soler in since failing voiding trial. Continue Tamsulsoin and Finasteride. He will ultimately need a cystoscopy in the office and urodynamics study to rule out atonic bladder. Ok to discharge when urine is clear off CBI with soler catheter. No further evaluation needed. (2) UTI (urinary tract infection): Code(s): N39.0 - Urinary tract infection, site not specified Status: Acute (3) Retention of urine: Code(s): R33.9 - Retention of urine, unspecified Status: Acute Subjective Subjective Date/Time Seen: 10/06/22 16:11 Interval history: Patient has had clear urine overnight and catheter was removed yesterday for a voiding trial. He urinated and had 225ml in his bladder via bladder scan yesterday afternoon. Overnight he developed reteniton and dark/cloudy urine again and a new 3 way catheter was placed with CBI restarted. He feels well otherwise. Review of Systems Cardiovascular: Cardiovascular: Denies chest pain Respiratory: Respiratory: Reports no additional respiratory complaints Gastrointestinal: Gastrointestinal: Denies abdominal pain, Denies nausea and Denies vomiting Genitourinary: Genitourinary: Denies hematuria, Denies genital pain, Denies dysuria, Denies flank pain, Denies scrotal swelling, Denies urinary frequency, Reports urinary hesitancy, Denies urinary incontinence and Denies urinary urgency Exam Const: General: cooperative and comfortable Resp: Effort & Inspection: normal respiratory effort Cardio: Rate: regular rate GI: GI Palp: Yes Soft to palpation and No Tenderness to palpation present (GI) : General: Yes no CVA tenderness Urinary Catheter: Urinary Catheter: patent and draining, urine cloudy and urine dark Extrem: Right lower extremity: no edema Left lower extremity: no edema Objective Data Vital Signs Vital Signs: Vital Signs - 24 hr 10/05/22 20:34 10/05/22 20:15 10/05/22 22:00 Temperature 97.1 F L Pulse Rate 62 87 88 Respiratory Rate 16 Blood Pressure 139/83 Pulse Oximetry 99 10/06/22 00:00 10/06/22 04:00 10/06/22 06:00 Temperature 98 F Pulse Rate 87 88 86 Respiratory Rate 22 H Blood Pressure 103/58 L Pulse Oximetry 100 10/06/22 10:28 10/06/22 08:00 10/06/22 12:00 Temperature Pulse Rate 78 85 81 Respiratory Rate Blood Pressure Pulse Oximetry 10/06/22 14:32 Temperature 97.8 F Pulse Rate 78 Respiratory Rate 16 Blood Pressure 100/53 L Pulse Oximetry 100 Intake/Output Intake/Output: Intake & Output 10/03/22 10/04/22 10/05/22 10/06/22 23:59 23:59 23:59 23:59 Intake Total 81873 3320 3590 1080 Output Total 53972 195 872 2205 Balance 1630 2720 3390 -170 Meds/Results Medications: Active Medications Generic Name Dose Route Start Last Admin Trade Name Freq PRN Reason Stop Dose Admin Acetaminophen 650 mg 10/03/22 17:55 Acetaminophen 325 Mg Tablet PO Q6H PRN Pain or Fever Atorvastatin Calcium 20 mg 10/03/22 09:00 10/06/22 10:28 Atorvastatin 20 Mg Tablet PO 20 mg DAILY OSIEL Administration Carvedilol 1.56 mg 10/02/22 22:15 10/06/22 10:28 Carvedilol 1.56 Mg Tablet PO 1.56 mg Q12HR OSIEL Administration Dextrose 12.5 gm 10/02/22 15:05 Dextrose 50% 25 Gm/50 Ml Syringe IV PUSH PRN PRN Hypoglycemia Protocol Empagliflozin 10 mg 10/03/22 09:00 10/06/22 10:29 Empagliflozin 10 Mg Tablet PO 10 mg DAILY OSIEL Administration Ferrous Sulfate 325 mg 10/03/22 08:00 10/06/22 10:29 Ferrous Sulfate [address] BY MOUTH 325 mg BIDWM OSIEL Administration Finasteride 5 mg 10/03/22 09:00 10/06/22 10:29 Finasteride 5 Mg Tablet PO 5 mg QAM OSIEL Administration Folic Acid 1
[2022-10-06 16:54] LABS: Glucose Point of Care 142 mg/dl (65-105)
--- NOTE | 2022-10-06 18:56 | PC.NURSE ---
CBI drip increased to 70 drops/minute, abdominal pain decreased, and output is now almost yellow. 2700 mL of output. CBI bag marked during last empty and with drip increase.
[2022-10-06 20:19] LABS: Glucose Point of Care 127 mg/dl (65-105)
[2022-10-07] VITALS (10 sets, daily range): BP systolic 111–125; BP diastolic 60–68; PULSE 59–72; RESP 18–20; TEMP 36.2–36.3; O2SAT 100
[2022-10-07 07:48] LABS: Glucose Point of Care 83 mg/dl (65-105)
[2022-10-07] MEDS: ATORVASTATIN 20 MG TABLET PO (08:50)
[2022-10-07] MEDS: LINEZOLID 600 MG TABLET PO ×2 (08:50→17:52)
[2022-10-07] MEDS: EMPAGLIFLOZIN 10 MG TABLET PO (08:50)
[2022-10-07] MEDS: MAGNESIUM OXIDE 400 MG TABLET PO (08:50)
[2022-10-07] MEDS: carvediloL 1.56 MG TABLET PO ×2 (08:50→21:27)
[2022-10-07] MEDS: TAMSULOSIN HCL 0.4 MG CAPSULE 0.8 MG PO (08:50)
[2022-10-07] MEDS: FERROUS SULFATE 325 MG TABLET DR BY MOUTH ×2 (08:50→17:52)
[2022-10-07] MEDS: FINASTERIDE 5 MG TABLET PO (08:51)
[2022-10-07] MEDS: PANTOPRAZOLE 40 MG TABLET PO (08:51)
[2022-10-07] MEDS: FOLIC ACID 1 MG TABLET PO (08:51)
[2022-10-07 11:42] LABS: Glucose Point of Care 151 mg/dl (65-105)
--- NOTE | 2022-10-07 14:13 | PM.IMPN ---
Progress Note: A&P Assessment and Plan (1) Hematuria: Qualifiers: Hematuria type: gross Qualified Code(s): R31.0 - Gross hematuria Code(s): R31.9 - Hematuria, unspecified Status: Acute Assessment and Plan: [place] remains. Failed voiding trial. (2) Thrombocytopenia: Code(s): D69.6 - Thrombocytopenia, unspecified Status: Acute Assessment and Plan: Monitor platelets (3) CAD (coronary artery disease): Code(s): I25.10 - Atherosclerotic heart disease of [place] coronary artery without angina pectoris Status: Chronic Assessment and Plan: Aspirin is on hold as the patient's platelets are any low. Continue with atorvastatin, Coreg, and Jardiance (4) Cirrhosis: Code(s): K74.60 - Unspecified cirrhosis of liver Status: Acute Assessment and Plan: GI consult was greatly be appreciated. Check ammonia level. (5) Stage 3b chronic kidney disease: Code(s): N18.32 - Chronic kidney disease, stage 3b Status: Chronic Assessment and Plan: The patient's creatinine is 1.86. BUN is 50. Continue to monitor. (6) BPH (benign prostatic hyperplasia): Code(s): N40.0 - Benign prostatic hyperplasia without lower urinary tract symptoms Status: Acute Assessment and Plan: Continue with tamsulosin and Proscar (7) Atrial fibrillation: Code(s): I48.91 - Unspecified atrial fibrillation Status: Acute Assessment and Plan: No anticoagulation due to his anemia and thrombocytopenia. Patient's heart rate is regular at this time. (8) Hyperlipidemia: Code(s): E78.5 - Hyperlipidemia, unspecified Status: Acute Assessment and Plan: Continue with atorvastatin. (9) Hypertension: Code(s): I10 - Essential (primary) hypertension Status: Chronic Assessment and Plan: Continue with Coreg. (10) UTI (urinary tract infection): Code(s): N39.0 - Urinary tract infection, site not specified Status: Acute Assessment and Plan: Linezolid Subjective Date/time seen: 10/07/22 14:13 Interval history: no complaints Exam Const: General: cooperative, alert, awake, Physically active and thin Nutritional Appearance: thin Orientation/consciousness: oriented to person, oriented to place, oriented to time and patient oriented x3 Limitations: no limitations Other: His very pale. HENMT: Head: normal to inspection, No palpable skull fracture present, normocephalic and atraumatic Ears: hearing grossly normal bilaterally and external ears normal Face/Nose/Sinus: Normal external nose present and Normal nares present Eyes: General: appearance normal, both eyes and all related structures Alignment and Position: alignment normal Periorbital: periorbital findings normal Eyelids: eyelids normal Conjunctivae: conjunctivae normal Sclera: sclerae normal Cornea: corneas normal Pupils: Equal, round and reactive pupils present and Pupil accommodation reflex normal EOM: EOMs intact bilaterally Neck: Neck: normal visual inspection, full ROM, no lymphadenopathy, trachea midline and supple Thyroid: thyroid normal Carotids: normal carotid upstroke Lymphatic: no lymphadenopathy noted Chest: Chest palpation & inspection: normal inspection of the chest Resp: Effort & Inspection: normal respiratory effort Auscultation: clear to auscultation bilaterally Percussion: percussion normal Cardio: Palpation: normal PMI Rate: regular rate Rhythm: regular rhythm Heart sounds: S1 normal heart sound present and S2 normal heart sound present Peripheral pulses: Peripheral pulses 2+ throughout GI: Inspection: normal to inspection Auscultation: normal bowel sounds Rectal Exam: deferred : General: Yes no CVA tenderness Back/Spine/Pelvis: Back: no CVA tenderness Cervical Spine: cervical ROM normal Thoracic/Lumbar Spine: thoracic and lumbar spine normal to inspection Pelvis: no pain with ante
[2022-10-07 16:37] LABS: Eosinophils Absolute Auto 0.1 K/mm3 (0-0.3); Eosinophils Percent Auto 4.2 % (0-4.4); Hematocrit 27.3 % (42.0-52.0); Hemoglobin 8.5 g/dL (14.0-18.0); Immature Granulocyte Absolute 0.01 K/mm3 (0.00-0.031); Immature Granulocyte Percent A 0.3 % (0-0.5); Immature Platelet Fraction Pct 2.3 % (0.9-11.2); Lymphocytes Absolute Auto 0.74 K/mm3 (0.9-3.2); Lymphocytes Percent Auto 24.2 % (18.3-44.2); Mean Corpuscular HGB Conc 31.1 g/dl (32-36); Mean Corpuscular Hemoglobin 31.8 pg (26-34); Mean Corpuscular Volume 102.2 fl (80-100); Mean Platelet Volume 10.7 fl (7.4-10.4); Monocytes Absolute Auto 0.3 K/mm3 (0.1-0.6); Monocytes Percent Auto 9.2 % (2.6-8.5); Neutrophils Absolute Auto 1.9 K/mm3 (1.3-6.7); Neutrophils Percent Auto 61.1 % (45.5-73.1); Platelet Count Result 62 k/mm3 (150-375); Red Blood Count 2.67 M/mm3 (4.6-6.20); Red Cell Distribution Width 18.8 % (11.5-14.5); White Blood Count 3.1 K/mm3 (4.5-10.0)
[2022-10-07 16:46] LABS: Anion Gap 8 mmol/L (8-16); Blood Urea Nitrogen 38 mg/dL (9-20); Calcium 7.4 mg/dL (8.4-10.2); Carbon Dioxide 14 mmol/L (22-30); Chloride 111 mmol/L (98-107); Estimated CRCL calculation 25 ml/min; Estimated Glomerular Filt Rate 36; Glucose 144 mg/dL (65-110); Potassium 3.2 mmol/L (3.4-5.0); Sodium 133 mmol/L (137-145)
[2022-10-07 16:49] LABS: Platelet Estimate Decreased (Adequate)
[2022-10-07 16:50] LABS: Schistocytes None Seen (NORMAL)
[2022-10-07 17:11] LABS: Glucose Point of Care 147 mg/dl (65-105)
[2022-10-07 21:10] LABS: Glucose Point of Care 169 mg/dl (65-105)
[2022-10-08] VITALS (7 sets, daily range): BP systolic 107–113; BP diastolic 66–68; PULSE 57–75; RESP 18; TEMP 35.8–36.4; O2SAT 100
[2022-10-08 07:13] LABS: Anion Gap 5 mmol/L (8-16); Blood Urea Nitrogen 38 mg/dL (9-20); Calcium 7.5 mg/dL (8.4-10.2); Carbon Dioxide 17 mmol/L (22-30); Chloride 110 mmol/L (98-107); Estimated CRCL calculation 22 ml/min; Estimated Glomerular Filt Rate 32; Glucose 119 mg/dL (65-110); Sodium 132 mmol/L (137-145)
[2022-10-08 08:06] LABS: Glucose Point of Care 112 mg/dl (65-105)
[2022-10-08] MEDS: POTASSIUM CHLORIDE 20 MEQ ER TABLET 40 MEQ PO (08:54)
[2022-10-08] MEDS: ATORVASTATIN 20 MG TABLET PO (08:56)
[2022-10-08] MEDS: FERROUS SULFATE 325 MG TABLET DR BY MOUTH ×2 (08:56→18:01)
[2022-10-08] MEDS: carvediloL 1.56 MG TABLET PO ×2 (08:56→20:33)
[2022-10-08] MEDS: LINEZOLID 600 MG TABLET PO ×2 (08:56→18:01)
[2022-10-08] MEDS: TAMSULOSIN HCL 0.4 MG CAPSULE 0.8 MG PO (08:56)
[2022-10-08] MEDS: FINASTERIDE 5 MG TABLET PO (08:56)
[2022-10-08] MEDS: MAGNESIUM OXIDE 400 MG TABLET PO (08:56)
[2022-10-08] MEDS: FOLIC ACID 1 MG TABLET PO (08:57)
[2022-10-08] MEDS: PANTOPRAZOLE 40 MG TABLET PO (08:57)
[2022-10-08] MEDS: EMPAGLIFLOZIN 10 MG TABLET PO (08:57)
--- NOTE | 2022-10-08 10:57 | PM.IMPN ---
Progress Note: A&P Assessment and Plan (1) Hematuria: Qualifiers: Hematuria type: gross Qualified Code(s): R31.0 - Gross hematuria Code(s): R31.9 - Hematuria, unspecified Status: Acute Assessment and Plan: Nelson remains. Still on CBI. CBI managed per Urology. Will likely need discharged with Nelson. (2) Thrombocytopenia: Code(s): D69.6 - Thrombocytopenia, unspecified Status: Acute Assessment and Plan: Monitor platelets (3) CAD (coronary artery disease): Code(s): I25.10 - Atherosclerotic heart disease of [place] coronary artery without angina pectoris Status: Chronic Assessment and Plan: Aspirin is on hold as the patient's platelets are any low. Continue with atorvastatin, Coreg, and Jardiance (4) Cirrhosis: Code(s): K74.60 - Unspecified cirrhosis of liver Status: Acute Assessment and Plan: GI consult was greatly be appreciated. Check ammonia level. (5) Stage 3b chronic kidney disease: Code(s): N18.32 - Chronic kidney disease, stage 3b Status: Chronic Assessment and Plan: The patient's creatinine is 1.86. BUN is 50. Continue to monitor. (6) BPH (benign prostatic hyperplasia): Code(s): N40.0 - Benign prostatic hyperplasia without lower urinary tract symptoms Status: Acute Assessment and Plan: Continue with tamsulosin and Proscar (7) Atrial fibrillation: Code(s): I48.91 - Unspecified atrial fibrillation Status: Acute Assessment and Plan: No anticoagulation due to his anemia and thrombocytopenia. Patient's heart rate is regular at this time. (8) Hyperlipidemia: Code(s): E78.5 - Hyperlipidemia, unspecified Status: Acute Assessment and Plan: Continue with atorvastatin. (9) Hypertension: Code(s): I10 - Essential (primary) hypertension Status: Chronic Assessment and Plan: Continue with Coreg. (10) UTI (urinary tract infection): Code(s): N39.0 - Urinary tract infection, site not specified Status: Acute Assessment and Plan: Linezolid Subjective Date/time seen: 10/08/22 10:57 Interval history: No complaints Exam Const: General: cooperative, alert, awake, Physically active and thin Nutritional Appearance: thin Orientation/consciousness: oriented to person, oriented to place, oriented to time and patient oriented x3 Limitations: no limitations Other: His very pale. HENMT: Head: normal to inspection, No palpable skull fracture present, normocephalic and atraumatic Ears: hearing grossly normal bilaterally and external ears normal Face/Nose/Sinus: Normal external nose present and Normal nares present Eyes: General: appearance normal, both eyes and all related structures Alignment and Position: alignment normal Periorbital: periorbital findings normal Eyelids: eyelids normal Conjunctivae: conjunctivae normal Sclera: sclerae normal Cornea: corneas normal Pupils: Equal, round and reactive pupils present and Pupil accommodation reflex normal EOM: EOMs intact bilaterally Neck: Neck: normal visual inspection, full ROM, no lymphadenopathy, trachea midline and supple Thyroid: thyroid normal Carotids: normal carotid upstroke Lymphatic: no lymphadenopathy noted Chest: Chest palpation & inspection: normal inspection of the chest Resp: Effort & Inspection: normal respiratory effort Auscultation: clear to auscultation bilaterally Percussion: percussion normal Cardio: Palpation: normal PMI Rate: regular rate Rhythm: regular rhythm Heart sounds: S1 normal heart sound present and S2 normal heart sound present Peripheral pulses: Peripheral pulses 2+ throughout GI: Inspection: normal to inspection Auscultation: normal bowel sounds Rectal Exam: deferred : General: Yes no CVA tenderness Back/Spine/Pelvis: Back: no CVA tenderness Cervical Spine: cervical ROM normal Thoracic/Lumbar Spine: thoracic and l
[2022-10-08 11:43] LABS: Glucose Point of Care 200 mg/dl (65-105)
[2022-10-08 17:10] LABS: Glucose Point of Care 133 mg/dl (65-105)
[2022-10-08 22:27] LABS: Glucose Point of Care 148 mg/dl (65-105)
[2022-10-09 06:00] VITALS: BP 121/62; PULSE 69; RESP 20; TEMP 36.6; O2SAT 100
--- NOTE | 2022-10-09 06:48 | PC.NURSE ---
RN documented 3750 input and 3950 output, unsure if accurate, previous shift not documented
[2022-10-09 08:04] LABS: Glucose Point of Care 130 mg/dl (65-105)
[2022-10-09] MEDS: PANTOPRAZOLE 40 MG TABLET PO (08:28)
[2022-10-09] MEDS: LINEZOLID 600 MG TABLET PO ×2 (08:28→17:10)
[2022-10-09] MEDS: FINASTERIDE 5 MG TABLET PO (08:28)
[2022-10-09] MEDS: MAGNESIUM OXIDE 400 MG TABLET PO (08:28)
[2022-10-09] MEDS: TAMSULOSIN HCL 0.4 MG CAPSULE 0.8 MG PO (08:28)
[2022-10-09] MEDS: EMPAGLIFLOZIN 10 MG TABLET PO (08:28)
[2022-10-09] MEDS: FOLIC ACID 1 MG TABLET PO (08:28)
[2022-10-09 08:29] VITALS: PULSE 74
[2022-10-09] MEDS: carvediloL 1.56 MG TABLET PO ×2 (08:29→22:00)
[2022-10-09] MEDS: ATORVASTATIN 20 MG TABLET PO (08:29)
[2022-10-09] MEDS: FERROUS SULFATE 325 MG TABLET DR BY MOUTH ×2 (08:29→17:10)
[2022-10-09] MEDS: INSULIN GLARGINE (*BKC) 100 UNITS/ML 15 UNITS SUB-Q (08:31)
--- NOTE | 2022-10-09 10:11 | PCNFU ---
Nutrition Follow-Up Complete: Suboptimal po intake related to appetite as evidenced by pt report on admission Goal:PO intake to remain 75% or greater for meals and supplements Pt is progressing towards goal. continue with same goal Pt current nutrition is Diabetic, Glucerna shakes BID. Nutrition recommendation: Continue with current plan of care. Last recorded weight is 67.2 kg. Bowel Motility: +BM 10/08 Labs Reviewed: NA:132, GFR:32, BUN:38, Cr:2 Meds Noted: novolog, lantus Skin: no skin issues noted Additional Notes: Pt continues on a diabetic diet, intake 25-100% varied at meals. Glucerna shakes BID in place. Continue to encourage good intake of meals and supplements. Monitor intake, wt, labs. Follow up in 5 days.
[2022-10-09 12:03] LABS: Glucose Point of Care 149 mg/dl (65-105)
--- NOTE | 2022-10-09 12:28 | PM.DS ---
DS: Admitting Diagnosis Discharge Date October 09, 2022 Admitting Diagnosis Hematuria, UTI DS: Discharge Diagnosis Discharge Diagnosis (1) Hematuria: Qualifiers: Hematuria type: gross Qualified Code(s): R31.0 - Gross hematuria Code(s): R31.9 - Hematuria, unspecified Status: Acute Assessment and Plan: Nelson remains. Still on CBI. CBI managed per Urology. Will likely need discharged with Nelson. (2) Thrombocytopenia: Code(s): D69.6 - Thrombocytopenia, unspecified Status: Acute Assessment and Plan: Monitor platelets (3) CAD (coronary artery disease): Code(s): I25.10 - Atherosclerotic heart disease of [place] coronary artery without angina pectoris Status: Chronic Assessment and Plan: Aspirin is on hold as the patient's platelets are any low. Continue with atorvastatin, Coreg, and Jardiance (4) Cirrhosis: Code(s): K74.60 - Unspecified cirrhosis of liver Status: Acute Assessment and Plan: GI consult was greatly be appreciated. Check ammonia level. (5) Stage 3b chronic kidney disease: Code(s): N18.32 - Chronic kidney disease, stage 3b Status: Chronic Assessment and Plan: The patient's creatinine is 1.86. BUN is 50. Continue to monitor. (6) BPH (benign prostatic hyperplasia): Code(s): N40.0 - Benign prostatic hyperplasia without lower urinary tract symptoms Status: Acute Assessment and Plan: Continue with tamsulosin and Proscar (7) Atrial fibrillation: Code(s): I48.91 - Unspecified atrial fibrillation Status: Acute Assessment and Plan: No anticoagulation due to his anemia and thrombocytopenia. Patient's heart rate is regular at this time. (8) Hyperlipidemia: Code(s): E78.5 - Hyperlipidemia, unspecified Status: Acute Assessment and Plan: Continue with atorvastatin. (9) Hypertension: Code(s): I10 - Essential (primary) hypertension Status: Chronic Assessment and Plan: Continue with Coreg. (10) UTI (urinary tract infection): Code(s): N39.0 - Urinary tract infection, site not specified Status: Acute Assessment and Plan: Linezolid DS: Summary Hospital Course Hospital Course: Patient is an 87 gentleman came in with hematuria. Found have UTI thank come ice resistant Enterococcus. Will be sent home on linezolid. CBI remained on until his urine was clear. Urology was consulted and managed his CBI. Also has Nelson on discharging and he will need follow-up with Urology to have this removed. Time Spent with Patient Time attestation: Total time spent providing and/or coordinating discharge services: Exam Const: General: cooperative, alert, awake, Physically active and thin Nutritional Appearance: thin Orientation/consciousness: oriented to person, oriented to place, oriented to time and patient oriented x3 Limitations: no limitations Other: His very pale. HENMT: Head: normal to inspection, No palpable skull fracture present, normocephalic and atraumatic Ears: hearing grossly normal bilaterally and external ears normal Face/Nose/Sinus: Normal external nose present and Normal nares present Eyes: General: appearance normal, both eyes and all related structures Alignment and Position: alignment normal Periorbital: periorbital findings normal Eyelids: eyelids normal Conjunctivae: conjunctivae normal Sclera: sclerae normal Cornea: corneas normal Pupils: Equal, round and reactive pupils present and Pupil accommodation reflex normal EOM: EOMs intact bilaterally Neck: Neck: normal visual inspection, full ROM, no lymphadenopathy, trachea midline and supple Thyroid: thyroid normal Carotids: normal carotid upstroke Lymphatic: no lymphadenopathy noted Chest: Chest palpation & inspection: normal inspection of the chest Resp: Effort & Inspection: normal respiratory effort Auscultation: clear to auscultation bi
--- NOTE | 2022-10-09 14:38 | PCOTNOTE ---
The patient treatment was not able to be completed on 10/09 @ 14:35. Patient has D/C orders in and is waiting on confirmation from the urologist. Will follow up if appropriate. Will plan to continue treatment per plan of care.
[2022-10-09 14:45] VITALS: BP 124/67; PULSE 71; RESP 20; TEMP 35.6; O2SAT 99
[2022-10-09 17:08] LABS: Glucose Point of Care 138 mg/dl (65-105)
[2022-10-09 21:39] VITALS: BP 119/67; PULSE 78; RESP 16; TEMP 36.5; O2SAT 100
[2022-10-09 21:50] LABS: Glucose Point of Care 181 mg/dl (65-105)
[2022-10-09 22:00] VITALS: PULSE 78
[2022-10-10 06:00] VITALS: BP 120/62; PULSE 73; RESP 18; TEMP 36.1; O2SAT 100
[2022-10-10 08:19] LABS: Glucose Point of Care 106 mg/dl (65-105)
[2022-10-10] MEDS: FERROUS SULFATE 325 MG TABLET DR BY MOUTH ×2 (08:41→17:01)
[2022-10-10 08:42] VITALS: PULSE 70
[2022-10-10] MEDS: ATORVASTATIN 20 MG TABLET PO (08:42)
[2022-10-10] MEDS: carvediloL 1.56 MG TABLET PO ×2 (08:42→20:09)
[2022-10-10] MEDS: FOLIC ACID 1 MG TABLET PO (08:44)
[2022-10-10] MEDS: TAMSULOSIN HCL 0.4 MG CAPSULE 0.8 MG PO (08:44)
[2022-10-10] MEDS: FINASTERIDE 5 MG TABLET PO (08:44)
[2022-10-10] MEDS: LINEZOLID 600 MG TABLET PO (08:44)
[2022-10-10] MEDS: EMPAGLIFLOZIN 10 MG TABLET PO (08:44)
[2022-10-10] MEDS: MAGNESIUM OXIDE 400 MG TABLET PO (08:44)
[2022-10-10] MEDS: PANTOPRAZOLE 40 MG TABLET PO (08:45)
[2022-10-10] MEDS: INSULIN GLARGINE (*BKC) 100 UNITS/ML 15 UNITS SUB-Q (09:08)
--- NOTE | 2022-10-10 10:23 | PCOTNOTE ---
Patient refused to participate this session. Patient stated, I was supposed to be leaving, everything is changing now, I'm bleeding again and am devastated . Patient refuses to participate in any activity. RN notified and aware
--- NOTE | 2022-10-10 11:22 | PM.IMPN ---
Progress Note: A&P Assessment and Plan (1) Hematuria: Qualifiers: Hematuria type: gross Qualified Code(s): R31.0 - Gross hematuria Code(s): R31.9 - Hematuria, unspecified Status: Acute Assessment and Plan: Nelson remains. Still on CBI. CBI managed per Urology. Will likely need discharged with Nelson. Wait for Urology to see him again today. Still has blood in his urine. Discharge will be held up. Antibiotics (2) Thrombocytopenia: Code(s): D69.6 - Thrombocytopenia, unspecified Status: Acute Assessment and Plan: Monitor platelets (3) CAD (coronary artery disease): Code(s): I25.10 - Atherosclerotic heart disease of [place] coronary artery without angina pectoris Status: Chronic Assessment and Plan: Aspirin is on hold as the patient's platelets are any low. Continue with atorvastatin, Coreg, and Jardiance (4) Cirrhosis: Code(s): K74.60 - Unspecified cirrhosis of liver Status: Acute Assessment and Plan: GI consult was greatly be appreciated. Check ammonia level. (5) Stage 3b chronic kidney disease: Code(s): N18.32 - Chronic kidney disease, stage 3b Status: Chronic Assessment and Plan: Monitor (6) BPH (benign prostatic hyperplasia): Code(s): N40.0 - Benign prostatic hyperplasia without lower urinary tract symptoms Status: Acute Assessment and Plan: Continue with tamsulosin and Proscar (7) Atrial fibrillation: Code(s): I48.91 - Unspecified atrial fibrillation Status: Acute Assessment and Plan: No anticoagulation due to his anemia and thrombocytopenia. Patient's heart rate is regular at this time. (8) Hyperlipidemia: Code(s): E78.5 - Hyperlipidemia, unspecified Status: Acute Assessment and Plan: Continue with atorvastatin. (9) Hypertension: Code(s): I10 - Essential (primary) hypertension Status: Chronic Assessment and Plan: Continue with Coreg. (10) UTI (urinary tract infection): Code(s): N39.0 - Urinary tract infection, site not specified Status: Acute Assessment and Plan: Linezolid Subjective Date/time seen: 10/10/22 11:22 Interval history: No complaints CBI stopped early yesterday, now having blood again in his urine. Exam Const: General: cooperative, alert, awake, Physically active and thin Nutritional Appearance: thin Orientation/consciousness: oriented to person, oriented to place, oriented to time and patient oriented x3 Limitations: no limitations Other: His very pale. HENMT: Head: normal to inspection, No palpable skull fracture present, normocephalic and atraumatic Ears: hearing grossly normal bilaterally and external ears normal Face/Nose/Sinus: Normal external nose present and Normal nares present Eyes: General: appearance normal, both eyes and all related structures Alignment and Position: alignment normal Periorbital: periorbital findings normal Eyelids: eyelids normal Conjunctivae: conjunctivae normal Sclera: sclerae normal Cornea: corneas normal Pupils: Equal, round and reactive pupils present and Pupil accommodation reflex normal EOM: EOMs intact bilaterally Neck: Neck: normal visual inspection, full ROM, no lymphadenopathy, trachea midline and supple Thyroid: thyroid normal Carotids: normal carotid upstroke Lymphatic: no lymphadenopathy noted Chest: Chest palpation & inspection: normal inspection of the chest Resp: Effort & Inspection: normal respiratory effort Auscultation: clear to auscultation bilaterally Percussion: percussion normal Cardio: Palpation: normal PMI Rate: regular rate Rhythm: regular rhythm Heart sounds: S1 normal heart sound present and S2 normal heart sound present Peripheral pulses: Peripheral pulses 2+ throughout GI: Inspection: normal to inspection Auscultation: normal bowel sounds Rectal Exam: deferred : General: Yes no CVA tenderness
[2022-10-10 11:53] LABS: Glucose Point of Care 137 mg/dl (65-105)
[2022-10-10 14:50] VITALS: BP 128/70; PULSE 78; RESP 16; TEMP 36.7; O2SAT 98
[2022-10-10 17:02] LABS: Glucose Point of Care 135 mg/dl (65-105)
[2022-10-10 20:19] LABS: Glucose Point of Care 170 mg/dl (65-105)
[2022-10-10 21:56] VITALS: BP 114/66; PULSE 76; RESP 18; TEMP 36.4; O2SAT 100
[2022-10-11 06:00] VITALS: BP 141/77; PULSE 80; RESP 18; TEMP 36.5; O2SAT 100
[2022-10-11 08:08] LABS: Glucose Point of Care 100 mg/dl (65-105)
[2022-10-11 08:32] VITALS: PULSE 80
[2022-10-11] MEDS: carvediloL 1.56 MG TABLET PO (08:32)
[2022-10-11] MEDS: MAGNESIUM OXIDE 400 MG TABLET PO (08:32)
[2022-10-11] MEDS: FINASTERIDE 5 MG TABLET PO (08:33)
[2022-10-11] MEDS: TAMSULOSIN HCL 0.4 MG CAPSULE 0.8 MG PO (08:33)
[2022-10-11] MEDS: EMPAGLIFLOZIN 10 MG TABLET PO (08:33)
[2022-10-11] MEDS: FERROUS SULFATE 325 MG TABLET DR BY MOUTH (08:33)
[2022-10-11] MEDS: ATORVASTATIN 20 MG TABLET PO (08:33)
[2022-10-11] MEDS: PANTOPRAZOLE 40 MG TABLET PO (08:33)
[2022-10-11] MEDS: FOLIC ACID 1 MG TABLET PO (08:33)
--- NOTE | 2022-10-11 09:37 | WPDUROPN2 ---
Progress Note: A&P Assessment and Plan (1) Retention of urine: Code(s): R33.9 - Retention of urine, unspecified Status: Acute Assessment and Plan: Continue Finasteride and Tamsulosin, failed voiding trial. Will plan to do an outpatient cystoscopy with Dr. Gallardo to further evaluate as well as Urodynamics. Keep soler in for discharge, it will need to be changed in 3 weeks and monthly until able to be seen in the office and evaluated further. (2) Hematuria: Qualifiers: Hematuria type: gross Qualified Code(s): R31.0 - Gross hematuria Code(s): R31.9 - Hematuria, unspecified Status: Acute Assessment and Plan: No CBI needed for several days. Patient got up with PT last night for an eval and no increase bleeding was noted with activity in the urine. I encouarge him to be discharged with soler to rehab when stable and to irrigate catheter q shift with a 60cc catheter tip syringe to keep clear and patent and from clogging or neeeding CBI. If bleeding would re-occur or clots would block the tubing, patient would need to be manually irrigated to clear the tubing until it flows again or change soler catheter. If unable to clear clots or get urine to flow with a new catheter, transfer to ER at [place] for CBI/clot evacuation. No further evaluation needed at this time. Likely secondary to VRE infection as CT was normal anatomically. He does take ASA 81mg at home, which could contribute. Ok to let patient eat. (3) BPH (benign prostatic hyperplasia): Code(s): N40.0 - Benign prostatic hyperplasia without lower urinary tract symptoms Status: Acute Assessment and Plan: This may be contributing to his intermittent bleeding as well. The patient may benefit from a PAE (Prostate Artery Embolization), TURP or Urolift. However this would need to be done as an outpatient after a cystoscopy is completed. Subjective Subjective Date/Time Seen: 10/11/22 09:37 Interval history: Patient has had cloudy urine overnight with some mild blood and small clots, but is flowing to gravity. He failed a voiding trial during this hospitalization. He has not required CBI for several days. CT on 09/28/22 shows no urological abnormalities. Urine Culture on 10/03/22 grew VRE. Patient was started on Amicar by Dr. Luther to improve urinary bleeding, cystoscopy was then held off. He feels well otherwise. Review of Systems Cardiovascular: Cardiovascular: Denies chest pain Respiratory: Respiratory: Reports no additional respiratory complaints Gastrointestinal: Gastrointestinal: Denies abdominal pain, Denies nausea and Denies vomiting Genitourinary: Genitourinary: Reports hematuria, Denies genital pain, Denies flank pain, Denies scrotal swelling and Reports urinary hesitancy Exam Const: General: cooperative and comfortable Resp: Effort & Inspection: normal respiratory effort Cardio: Rate: regular rate GI: GI Palp: Yes Soft to palpation and No Tenderness to palpation present (GI) : General: Yes no CVA tenderness Urinary Catheter: Urinary Catheter: patent and draining, urine cloudy and urine with clots Extrem: Right lower extremity: no edema Left lower extremity: no edema Objective Data Vital Signs Vital Signs: Vital Signs - 24 hr 10/10/22 14:50 10/10/22 21:56 10/10/22 20:00 Temperature 98.1 F 97.6 F Pulse Rate 78 76 Respiratory Rate 16 18 Blood Pressure 128/70 114/66 Pulse Oximetry 98 100 Oxygen Delivery Room Air 10/11/22 06:00 10/11/22 08:32 Temperature 97.7 F Pulse Rate 80 80 Respiratory Rate 18 Blood Pressure 141/77 H Pulse Oximetry 100 Oxygen Delivery Intake/Output Intake/Output: Intake & Output 10/08/22 10/09/22 10/10/22 10/11/22 23:59 23:59 23:59 23:59 Intake Total 1750 1340 1800 250 Output Total 1300 1350 1250 600 Balance 450 -10 550 -350 Meds/Results Medications: Active Medications Generic Name Dose Route Start Last Admin Trade Na
[2022-10-11 09:43] LABS: Basophils Percent Auto 0.9 % (0.2-1.2); Eosinophils Absolute Auto 0.1 K/mm3 (0-0.3); Eosinophils Percent Auto 3.2 % (0-4.4); Hemoglobin 8.7 g/dL (14.0-18.0); Immature Granulocyte Absolute 0.01 K/mm3 (0.00-0.031); Immature Granulocyte Percent A 0.3 % (0-0.5); Immature Platelet Fraction Pct 1.3 % (0.9-11.2); Lymphocytes Percent Auto 26.1 % (18.3-44.2); Mean Corpuscular HGB Conc 32.2 g/dl (32-36); Mean Corpuscular Hemoglobin 32.7 pg (26-34); Mean Corpuscular Volume 101.5 fl (80-100); Mean Platelet Volume 10.1 fl (7.4-10.4); Monocytes Absolute Auto 0.2 K/mm3 (0.1-0.6); Monocytes Percent Auto 6.4 % (2.6-8.5); Neutrophils Absolute Auto 2.2 K/mm3 (1.3-6.7); Neutrophils Percent Auto 63.1 % (45.5-73.1); Platelet Count Result 65 k/mm3 (150-375); Red Blood Count 2.66 M/mm3 (4.6-6.20); Red Cell Distribution Width 18.4 % (11.5-14.5); White Blood Count 3.5 K/mm3 (4.5-10.0)
[2022-10-11 09:53] LABS: Potassium 3.8 mmol/L (3.4-5.0)
[2022-10-11 09:54] LABS: Alanine Aminotransferase 20 U/L (6-50); Albumin Level 2.3 g/dL (3.5-5.1); Alkaline Phosphatase 181 U/L (38-126); Anion Gap 6 mmol/L (8-16); Aspartate Amino Transferase 30 U/L (17-59); Bilirubin,Total 0.7 mg/dL (0.2-1.3); Blood Urea Nitrogen 37 mg/dL (9-20); Calcium 7.9 mg/dL (8.4-10.2); Carbon Dioxide 19 mmol/L (22-30); Chloride 110 mmol/L (98-107); Estimated CRCL calculation 23 ml/min; Estimated Glomerular Filt Rate 34; Glucose 108 mg/dL (65-110); Sodium 135 mmol/L (137-145)
[2022-10-11 11:43] LABS: Glucose Point of Care 101 mg/dl (65-105)
--- NOTE | 2022-10-11 14:29 | PM.DS ---
DS: Admitting Diagnosis Discharge Date 10/11/22 Admitting Diagnosis Hematuria DS: Discharge Diagnosis Discharge Diagnosis (1) Hematuria: Qualifiers: Hematuria type: gross Qualified Code(s): R31.0 - Gross hematuria Code(s): R31.9 - Hematuria, unspecified Status: Acute (2) Thrombocytopenia: Code(s): D69.6 - Thrombocytopenia, unspecified Status: Acute (3) CAD (coronary artery disease): Code(s): I25.10 - Atherosclerotic heart disease of [place] coronary artery without angina pectoris Status: Chronic (4) Cirrhosis: Code(s): K74.60 - Unspecified cirrhosis of liver Status: Acute (5) Stage 3b chronic kidney disease: Code(s): N18.32 - Chronic kidney disease, stage 3b Status: Chronic (6) BPH (benign prostatic hyperplasia): Code(s): N40.0 - Benign prostatic hyperplasia without lower urinary tract symptoms Status: Acute (7) Atrial fibrillation: Code(s): I48.91 - Unspecified atrial fibrillation Status: Acute (8) Hyperlipidemia: Code(s): E78.5 - Hyperlipidemia, unspecified Status: Acute (9) Hypertension: Code(s): I10 - Essential (primary) hypertension Status: Chronic (10) UTI (urinary tract infection): Code(s): N39.0 - Urinary tract infection, site not specified Status: Acute DS: Summary Hospital Course Reason for hospitalization: 87yo male with BPH, CAD and HTN here for hematuria. Please see H&P for details. Hospital Course: Patient has chronic indwelling Nelson catheter. He was found to have bright red colored urine. Patient has pancytopenia probably related to his underlying cirrhosis. Hemoglobin was 6.8 any was transfuse 1 unit of packed red blood cells before transfer. Hgb remained stable in the 8 ranges since transfusion. Platelet count remained in the 60K range throughout his hospital course. Creatinine was elevated at 1.8 which is at the patient's baseline. Creatinine remained stable in this range. He had a mild metabolic non gap acidosis felt related to his renal failure. Ammonia level was normal. Hepatitis panel was negative. Urinalysis noted. Urine culture grew vancomycin resistant Enterococcus faecium sensitive to linezolid. He completed a course of antibiotics. Chest x-ray showed stable appearing lung nicole with small lung volumes and chronic atelectasis or scarring in the right lung base and bronchiectatic changes in the left lower lung zone. CT of the abdomen pelvis also shows chronic reticular opacities and bronchiectasis in the lung bases with cirrhosis of the liver and portal venous hypertension moderate volume of ascites. Had a chronic bladder wall thickening secondary to chronic outlet obstruction. Patient was started on CBI. Urology was consulted. His urine cleared but then would again developed hematuria. There are no clots. Urology felt patient still could be discharged to the facility with bladder irrigation once a shift. Plan also for outpatient cystoscopy. He overall did well and was able to be discharged to the [facility] facility on 10/11/2022. Discussed with PharmD ID with plans to repeat Linezolid for another 5 day course at discharge. Status at Discharge Cognitive/behavioral status at discharge: Stable Time Spent with Patient Time attestation: Total time spent providing and/or coordinating discharge services: 35 minutes Time spent: Greater than 30 minutes Exam Narrative: AF 97.7 141/77 80 18 100% ra Gen - NARD Chest - clear anteriorly and in the flanks, nml RR CV - RRR S1/S2 Abd - Soft, protubernat, +BS, NT - Nelson secured draining clear yellow urine Ext - No pedal edema Psych - Nml mood and affect Skin - Warm and dry DS: Data Data Completed and Pending Labs on day of discharge: Labs from last 24 hours 10/11/22 10/11/22 10/11/22 11:36 09:25 08:03 WBC 3.5 L RBC 2.66 L Hgb 8.7 L Hct 27.0 L MCV
== END 2022-10-11 16:30 | DRG 699 ==
PROVIDERS: Internal Medicine Gastroenterology; Nurse Practitioner; Admitting Provider Chiropractor; PCP Internal Medicine; Visit Provider Internal Medicine
DX: T83.511A Infection and inflammatory reaction due to indwelling urethral catheter, initial encounter (principal); D61.818 Other pancytopenia; E87.21 Acute metabolic acidosis; Z16.21 Resistance to vancomycin; K76.6 Portal hypertension; R18.8 Other ascites; N40.1 Benign prostatic hyperplasia with lower urinary tract symptoms; N39.0 Urinary tract infection, site not specified; B95.2 Enterococcus as the cause of diseases classified elsewhere; R31.0 Gross hematuria; R33.8 Other retention of urine; I12.9 Hypertensive chronic kidney disease with stage 1 through stage 4 chronic kidney disease, or unspecified chronic kidney disease; N18.32 Chronic kidney disease, stage 3b; D69.6 Thrombocytopenia, unspecified; I25.10 Atherosclerotic heart disease of native coronary artery without angina pectoris; I48.91 Unspecified atrial fibrillation; E78.5 Hyperlipidemia, unspecified; K74.60 Unspecified cirrhosis of liver; Z95.5 Presence of coronary angioplasty implant and graft; Z90.49 Acquired absence of other specified parts of digestive tract
CPT/HCPCS: 36415; 71045; 80048; 80053; 80074; 81001; 82140; 82948; 83605; 83735; 85014; 85018; 85025; 85055; 87077; 87086; 87088; 87186; 96365; 96366; 97110; 97116; 97161; 97165; 97530; A9270; G0378; G0379; J0696; J1815; J1940; J7030; J7060

== ENCOUNTER 2022-10-11 17:15 | Inpatient (IN) | payer MEDICARE, SELFPAY ==
--- NOTE | ~2022-10-11 | US_ITS ---
EXAMINATION:US venous doppler LE BI INDICATION:Leg swelling TECHNIQUE: Multiple grayscale, color flow and Doppler images of the right and left lower extremity de ep venous systems were obtained and reviewed. COMPARISON:Ultrasound dated 03/13/2022 FINDINGS: The left common femoral, superficial femoral and popliteal veins demonstrate normal respira tory variation, augmentation and compressibility. Color flow is also seen within the posterior tibia l, peroneal, greater saphenous and profunda veins. There is deep venous thrombosis of the right common femoral and profunda femoral veins. The remainder of the right lower extremity veins are patent with normal flow, compressibility and augmentation. IMPRESSION: 1: Deep venous thrombosis of the right common and profunda femoral veins. Dr. Amos Gallegos discussed with Jacqui from the second floor at [facility], at 10/16/2022 08:48 CDT. Reviewed, dictated and finalized at location B. IMPRESSION: 1: Deep venous thrombosis of the right common and profunda femoral veins. Dr. Amos Gallegos discussed with Jacqui from the second floor at [facility], at 10/16/2022 08:48 CDT.
--- NOTE | ~2022-10-11 | CT_ITS ---
EXAMINATION: CT abdomen pelvis wo con DATE: 10/13/2022 17:41 INDICATION: distended abdomen, diarrhea, no appetite today TECHNIQUE: Computed tomography (CT) of the abdomen and pelvis was performed without intravenous contr ast. Automated exposure control and iterative reconstruction technique were employed. The dose-length product was 974.56 mGy-cm. COMPARISON: 09/28/2022. FINDINGS: Lower thorax: Emphysematous/senescent changes. Bibasilar scar/atelectasis. Small bilateral pleural ef fusions. Aortic valve and coronary artery calcifications. Liver: Small nodular liver. Biliary/Gallbladder: Gallbladder is absent. No bile duct dilation. Pancreas: Mild atrophy. Calcifications may be secondary to chronic pancreatitis and/or vascular calci fications. Spleen: Enlarged. Adrenals:No mass. Kidneys: Bilateral cortical scarring and atrophy, greater on the left. Bilateral cysts. No suspicious mass, obstructing calcification, or hydronephrosis. GI tract: No small or large bowel dilation. Appendix not confidently visualized. Diverticulosis witho ut diverticulitis. Mesentery/Peritoneum: Moderate volume free fluid. Abdominal varices. Retroperitoneum: No mass. Atherosclerotic abdominal aortic and/or arterial calcifications. Pelvis: Nelson catheter in good position. Marked urinary bladder wall thickening. Multiple bladder div erticuli. Dependent bladder debris. Prostatomegaly. Soft Tissues: Diffuse body wall edema. Fluid containing right inguinal hernia. Bones: No acute osseous finding. IMPRESSION: Cirrhosis with portal hypertension. Small bilateral pleural effusions. Moderate ascites. Diffuse body wall edema. Cystitis, with hemorrhagic, proteinaceous, or crystalline bladder debris Reviewed, dictated and finalized at location K.
--- NOTE | 2022-10-11 17:51 | ADMGEN ---
This patient, Jaspal Ruggiero, was admitted to 2nd Floor Room 209-1. Patient/family oriented to hospital policies and general routines including ID bracelet, bed and alarms, visiting hours, pain management, procedures, bathroom and other care routines, personal items, smoking policy, room service/diet, and visiting hours. Information on how to activate the Rapid Response Team has been discussed. Patient/Family are encouraged to report perceived risks to care and to ask questions if they do not understand what they are told or what they should do.
[2022-10-11 18:08] VITALS: PULSE 87; RESP 14; O2SAT 100
[2022-10-11 18:09] VITALS: BP 125/78; PULSE 87; RESP 14; TEMP 36.4; O2SAT 100
[2022-10-11 18:12] VITALS: BMI 26.9
[2022-10-11 20:00] VITALS: PULSE 87; RESP 14; O2SAT 96
[2022-10-11 20:41] LABS: Glucose Point of Care 162 mg/dl (65-105)
[2022-10-11 23:10] VITALS: PULSE 81
[2022-10-11] MEDS: carvediloL 3.125 MG TABLET 1.5625 MG PO (23:10)
[2022-10-12] VITALS: BP 124/73; PULSE 81; RESP 16; TEMP 36.1; O2SAT 96
--- NOTE | 2022-10-12 03:26 | PC.NURSE ---
flushed 3 way urinary catheter with 60ml of sterile water. flushed well, mucus noted in the catheter and bloody tissue noted. urine draining into the tubing after flush., patient tolerated procedure well. no abdominal distention noted. no complaints of pain or pressure.
--- NOTE | 2022-10-12 03:55 | PC.NURSE ---
On 10/12/22, the MANAGER CONSTRUCTION, [Ramón ], provided care and completed [facility] documentation on this patient. I have reviewed the MANAGER CONSTRUCTION's documentation and agree with the findings.
[2022-10-12 07:56] VITALS: BP 121/75; PULSE 72; RESP 17; TEMP 36.3; O2SAT 98
[2022-10-12 08:55] VITALS: PULSE 70
[2022-10-12] MEDS: carvediloL 3.125 MG TABLET 1.5625 MG PO ×2 (08:55→21:02)
[2022-10-12] MEDS: INSULIN GLARGINE (*BKC) 1,000 UNITS/10 ML VIAL 15 UNITS SUB-Q (08:56)
[2022-10-12] MEDS: MAGNESIUM OXIDE 400 MG TABLET PO (08:57)
[2022-10-12] MEDS: allopurinoL 100 MG TABLET PO (08:57)
[2022-10-12] MEDS: ATORVASTATIN 10 MG TABLET 20 MG PO (08:57)
[2022-10-12] MEDS: EMPAGLIFLOZIN 10 MG TABLET PO (08:58)
[2022-10-12] MEDS: PANTOPRAZOLE 40 MG TABLET PO (08:58)
[2022-10-12] MEDS: FINASTERIDE 5 MG TABLET PO (08:58)
[2022-10-12] MEDS: TAMSULOSIN HCL 0.4 MG CAPSULE 0.8 MG PO ×2 (08:58→17:09)
[2022-10-12] MEDS: FERROUS SULFATE 325 MG TABLET DR BY MOUTH ×2 (08:58→17:09)
[2022-10-12] MEDS: FOLIC ACID 1 MG TABLET PO (09:00)
--- NOTE | 2022-10-12 10:06 | PM.IMHP ---
H&P: HPI History of Present Illness Date/Time: 10/12/22 10:06 Chief Complaint: Weakness, Rehab, retention with gross hematuria. Narrative: This is a Jaspal Ruggiero a 87 year male that has previously been with us and we transferred him to [facility] as he required Urology intervention and multiple blood transfusion due the Gross Hematuria. Patient has continued to bleed even after seen by hematology and urology he has had blood transfusion and new medication started. Patient was found to have UTI and VRE growing in his urine. Patient continues to require a Nelson catheter even after attempts to remove Nelson for trial of urination has he has retention. Once all of his infection and time has went by patient will need a Cystoscopy in he Urology office and ultimately a Possible TURP or their procedures per Urology notes but at this time patient needs to get stronger continue with the medication and we will Monitor is Nelson catheter for bloods. If he should start bleeding we will irrigate his cath with 60cc per shift to avoid any clotting in the tubing. See below Urology recommendation I encourage him to be discharged with Nelson to rehab when stable and to irrigate catheter q shift with a 60cc catheter tip syringe to keep clear and patent and from clogging or needing CBI. If bleeding would re-occur or clots would block the tubing, patient would need to be manually irrigated to clear the tubing until it flows again or change Nelson catheter. If unable to clear clots or get urine to flow with a new catheter, transfer to ER at [facility] for CBI/clot evacuation. No further evaluation needed at this time. Likely secondary to VRE infection as CT was normal anatomically. He does take ASA 81mg at home, which could contribute Patient has been removed off of ASA and will participate with Physical and Occupational therapy REPLACED BY [facility] Past Medical History Medical History (Updated 10/06/22 @ 16:14 by Brenda Mosquera APRN) Acute on chronic anemia Acute UTI (urinary tract infection) BPH (benign prostatic hyperplasia) CAD (coronary artery disease) Dehydration, mild Gout History of colon polyps History of kidney stones Hyperglycemia due to diabetes mellitus Hyperlipidemia Hypertension Melena Pancytopenia Pneumonia Viral syndrome Surgical History Surgical History (Updated 10/02/22 @ 18:59 by Marco Luther MD) H/O colonoscopy with polypectomy H/O hernia repair H/O removal of cyst On his chest History of back surgery History of cardiac catheterization Hx of cholecystectomy Stented coronary artery 2015, and 2018 Family History Family History Father Diabetes mellitus Heart disease Acute myocardial infarction Sibling Diabetes mellitus Social History Social History (Updated 10/02/22 @ 15:19 by Anastasia Kim NP) Social History: The patient lives with his and has 2 Children. Patient is retired from [employer]. The patient stated he used to drink heavily but does not drink anymore. His is the durable power business attorney for healthcare. Code status full code Smoking status: Never smoker Second hand tobacco smoke exposure: No Alcohol intake: former Drinks per week: 2 Substance use: never Substance use type: does not use Lack of Transportation: No Lack of Food: Never True Current Housing: I Have Housing Concerned About Future Housing: YES Difficulty Paying Gas/Electric Bills: No Difficulty Paying for Meds: No Currently Unemployed: No Education: High School Diploma/GED Difficulty w/ Childcare or Family Care: No Living arrangements: with family Spiritual care concerns: No Meds Home Medications and Allergies Home Medications Medication Instructions Recorded Confirmed Type allopurinol 100 mg tablet 100 mg PO DAILY 05/26/20 10/11/22 History atorvastatin 40 mg tablet 20 mg PO DAILY 05/26/20 10/11/22 History folic acid 1 mg tablet 1 mg PO
[2022-10-12 16:00] VITALS: BP 114/68; PULSE 68; RESP 17; TEMP 36.6; O2SAT 98
[2022-10-12 16:54] LABS: Glucose Point of Care 162 mg/dl (65-105)
[2022-10-12 21:03] LABS: Glucose Point of Care 148 mg/dl (65-105)
--- NOTE | 2022-10-12 23:05 | PC.NURSE ---
Pt noted to be incontinent of BM at this time, xavier-care provided. Pt denies further needs.
[2022-10-13] VITALS: BP 116/70; PULSE 86; RESP 17; TEMP 36.7; O2SAT 98
[2022-10-13 07:44] LABS: Glucose Point of Care 84 mg/dl (65-105)
[2022-10-13 08:00] VITALS: BP 127/70; PULSE 60; RESP 16; TEMP 36.1; O2SAT 100
[2022-10-13] MEDS: INSULIN GLARGINE (*BKC) 1,000 UNITS/10 ML VIAL 15 UNITS SUB-Q (09:25)
[2022-10-13 09:26] VITALS: PULSE 70
[2022-10-13] MEDS: carvediloL 3.125 MG TABLET 1.5625 MG PO ×2 (09:26→20:11)
[2022-10-13] MEDS: TAMSULOSIN HCL 0.4 MG CAPSULE 0.8 MG PO ×2 (09:27→17:38)
[2022-10-13] MEDS: ATORVASTATIN 10 MG TABLET 20 MG PO (09:27)
[2022-10-13] MEDS: allopurinoL 100 MG TABLET PO (09:27)
[2022-10-13] MEDS: FINASTERIDE 5 MG TABLET PO (09:27)
[2022-10-13] MEDS: MAGNESIUM OXIDE 400 MG TABLET PO (09:28)
[2022-10-13] MEDS: PANTOPRAZOLE 40 MG TABLET PO (09:28)
[2022-10-13] MEDS: FOLIC ACID 1 MG TABLET PO (09:28)
[2022-10-13] MEDS: FERROUS SULFATE 325 MG TABLET DR BY MOUTH ×2 (09:28→17:38)
[2022-10-13] MEDS: EMPAGLIFLOZIN 10 MG TABLET PO (09:28)
[2022-10-13 11:41] LABS: Glucose Point of Care 165 mg/dl (65-105)
[2022-10-13 12:43] LABS: Glucose Point of Care 146 mg/dl (65-105)
[2022-10-13 12:43] LABS: Glucose Point of Care 116 mg/dl (65-105)
--- NOTE | 2022-10-13 15:42 | PCPTNOTE ---
Patient refused to participate in physical therapy session this afternoon. After several minutes of education on importance of participation, patient continued to refuse treatment. Patient reports that he was flushed earlier in the afternoon as his stomach blew up and was cramping. Patient also states that he has been cramped up since around noon, and cannot move his legs. Patient expressed that he will not be participating in session, as well as that he is unsure of when he is supposed to move since being flushed. Nursing notified of patient's refusal and status.
[2022-10-13 16:00] VITALS: BP 132/80; PULSE 78; RESP 19; TEMP 36.3; O2SAT 94
[2022-10-13 17:05] LABS: Glucose Point of Care 143 mg/dl (65-105)
[2022-10-13] MEDS: LOPERAMIDE HCL 2 MG CAPSULE PO (17:38)
[2022-10-13 19:48] VITALS: PULSE 78; RESP 19; O2SAT 100
[2022-10-13 20:11] VITALS: PULSE 87
[2022-10-13] MEDS: ACETAMINOPHEN 325 MG TABLET 650 MG PO (20:12)
[2022-10-13 20:15] LABS: Glucose Point of Care 135 mg/dl (65-105)
[2022-10-14] VITALS: BP 135/72; PULSE 87; RESP 17; TEMP 36.8; O2SAT 100
[2022-10-14] MEDS: LOPERAMIDE HCL 2 MG CAPSULE PO (04:45)
[2022-10-14 07:48] LABS: Glucose Point of Care 122 mg/dl (65-105)
[2022-10-14 08:00] VITALS: BP 136/69; PULSE 89; RESP 14; TEMP 36.8; O2SAT 100
--- NOTE | 2022-10-14 08:26 | PC.NURSE ---
Patient reports pain and discomfort in lower abdominal area. Catheter flushed x2 and disengaged from stat lock. return sluggish. thick white urine. bladder hard with palpatation. ROVING TELLER aware and directed to perform bladder scan-shows residual of 95 mls.
--- NOTE | 2022-10-14 08:57 | PM.IMPN ---
Progress Note: A&P Assessment and Plan (1) Retention of urine: Code(s): R33.9 - Retention of urine, unspecified Status: Acute Assessment and Plan: Soler catheter in place--Failed prior soler trials. (2) Acute kidney injury superimposed on CKD: Code(s): N17.9 - Acute kidney failure, unspecified; N18.9 - Chronic kidney disease, unspecified Status: Acute Assessment and Plan: Decreased urine output overnight with abdominal pain. Soler flushed and now draining pyuria. Mild to moderate worsening of renal function on labs drawn today. BUN 46, Cr 2.26, eGFR 28, est creat clear 20 (3) Diabetes mellitus: Code(s): E11.9 - Type 2 diabetes mellitus without complications Status: Acute Assessment and Plan: Continue fingerstick blood glucose with insulin correction ACHS (4) Generalized weakness: Code(s): R53.1 - Weakness Status: Acute Assessment and Plan: PT/OT continue therapy for strengthening. Continue swing bed status. (5) Pyuria: Code(s): R82.81 - Pyuria Status: Acute Assessment and Plan: Katiana pyuria noted after flushing catheter today. No hematuria. Will order UA/UC again (6) Acute on chronic anemia: Code(s): D64.9 - Anemia, unspecified Status: Acute Assessment and Plan: H&H 9.5/29.1--Much improved over prior Plan UA/UC Continue swing bed status Time Spent With Patient Time with patient: 25 - 35 minutes Subjective Date/time seen: 10/14/22 08:57 Interval history: Patient seen today due to decreased urine drainage and significant abdominal pain. Patient has 3 way CBI catheter in place due to recent hematuria. RN states attempted to flush CBI port but fluid only removed through CBI port with minimal to no drainage in catheter bag. Patient usually doesn't complain of pain. Recent urine culture negative. I flushed catheter with sterile saline 10 mL, initial flush was difficult but then catheter began to drain well. There is katiana pyuria noted and it is likely that there was purulent plugging of drainage port that was dislodged with flushing. No hematuria noted. Review of Systems Review of Systems: All systems reviewed & are unremarkable except as noted in HPI and below Exam Narrative: GENERAL: Generally well appearing, alert and oriented, in mild to moderate pain distress. He is pleasant and conversant in full sentences. HEENT: Pupils are equally round and briskly reactive to light. Extraocular muscles are intact. Oral mucous membranes are moist without lesions. NECK: The patient has no noted JVD. No adenopathy is appreciated. CHEST/LUNGS: Lungs are clear bilaterally without rhonchi, rales, or wheezes. There is no subcutaneous air appreciated. There is no tenderness to the chest wall. HEART: The patient has a regular rate and rhythm. No murmurs, rubs, or gallops are appreciated. Distal pulses are 2+. No carotid bruits appreciated. ABDOMEN: The patient?s abdomen is soft, nondistended but tender suprapubically. Bowel sounds are positive. There are no peritoneal signs. GENITOURINARY: [address], originally not draining, started draining yellow urine with katiaan pyuria after flushing. No hematuria. EXTREMITIES: The patient has no peripheral edema. There is no focal long bone tenderness or deformity. SKIN: The patient?s skin is warm and dry, without rashes or lesions. PSYCHIATRIC: The patient has normal mental status and has an appropriate affect. NEUROLOGIC: There are no gross deficits to the cranial nerves. Objective Data Vital Signs Vital Signs: Vital Signs - 24 hr 10/13/22 09:26 10/13/22 16:00 10/13/22 19:48 Temperature 36.3 C L Pulse Rate 70 78 78 Respiratory Rate 19 19 Blood Pressure 132/80 Pulse Oximetry 94 100 Oxygen Delivery Room Air Room Air 10/13/22 20:11 10/14/22 00:00 10/14/22 08:00 Temperature 36.8 C 36.8 C Pulse Rate 87 87 89 Respiratory Rate 17 14 Blood Pressu
[2022-10-14] MEDS: TAMSULOSIN HCL 0.4 MG CAPSULE 0.8 MG PO ×2 (09:04→16:43)
[2022-10-14] MEDS: FOLIC ACID 1 MG TABLET PO (09:04)
[2022-10-14] MEDS: FINASTERIDE 5 MG TABLET PO (09:04)
[2022-10-14] MEDS: FERROUS SULFATE 325 MG TABLET DR BY MOUTH ×2 (09:05→16:43)
[2022-10-14] MEDS: PANTOPRAZOLE 40 MG TABLET PO (09:05)
[2022-10-14] MEDS: ATORVASTATIN 10 MG TABLET 20 MG PO (09:05)
[2022-10-14] MEDS: MAGNESIUM OXIDE 400 MG TABLET PO (09:05)
[2022-10-14] MEDS: carvediloL 3.125 MG TABLET 1.5625 MG PO ×2 (09:06→20:34)
[2022-10-14] MEDS: allopurinoL 100 MG TABLET PO (09:08)
[2022-10-14] MEDS: EMPAGLIFLOZIN 10 MG TABLET PO (09:08)
[2022-10-14] MEDS: INSULIN GLARGINE (*BKC) 1,000 UNITS/10 ML VIAL 15 UNITS SUB-Q (09:10)
[2022-10-14 09:14] LABS: Hematocrit 29.1 % (37.0-46.0); Hemoglobin 9.5 g/dL (12.4-15.3); Immature Platelet Fraction Pct 0.9 % (1.0-7.0); Mean Corpuscular HGB Conc 32.6 g/dL (32.0-36.0); Mean Corpuscular Hemoglobin 32.6 pg (27.0-31.0); Mean Platelet Volume 10.3 fl (8.7-11.0); Platelet Count Result 46 K/mm3 (150-420); Red Blood Count 2.91 M/mm3 (4.70-6.10); Red Cell Distribution Width 17.2 % (11.6-14.4)
[2022-10-14 09:28] LABS: Albumin Level 1.9 g/dL (3.4-5.0); Anion Gap 9 mmol/L (8-16); Blood Urea Nitrogen 46 mg/dL (7-18); Calcium 8.5 mg/dL (8.5-10.1); Carbon Dioxide 23 mmol/L (21-32); Chloride 105 mmol/L (98-108); Estimated CRCL calculation 20 ml/min; Estimated Glomerular Filt Rate 28; Glucose 92 mg/dL (70-99); Osmolality Calculated 295 mOsm/kg (285-295); Phosphorus 3.5 mg/dL (2.6-4.7); Potassium 4.6 mmol/L (3.5-5.1); Sodium 137 mmol/L (136-145)
[2022-10-14 10:12] LABS: Neutrophils Percent Manual 81 % (46-73); Total Cells Counted 100
[2022-10-14 10:13] LABS: Band Neutrophils Percent 6 % (0-6); Basophils Percent Manual 0 % (0-1); Eosinophils Percent Manual 0 % (1-6); Lymphocytes Absolute Manual 0.44 K/mm3 (1.1-4.5); Lymphocytes Percent Manual 11 % (18-44); Monocytes Absolute Manual 0.08 K/mm3 (0.1-0.90); Monocytes Percent Manual 2 % (3-9); Neutrophils Absolute Manual 3.48 K/mm3 (1.3-6.7); Platelet Estimate Decreased (Adequate)
--- NOTE | 2022-10-14 10:19 | PCPTNOTE ---
Patient refused treatment x 2 attempts this date. Patient reports his legs hurt to move an inch and he had a bad night. Patient educated on importance of position change and PT provided educated on opportunity to complete bed exercise to attempt to decrease pain. Patient continues to refuse treatment despite max encouragement from PT.
[2022-10-14 11:51] LABS: Glucose Point of Care 81 mg/dl (65-105)
--- NOTE | 2022-10-14 15:20 | PC.NURSE ---
Catheter draining thick mitchell urine. Flushed with NS. Patient has increased fluid intake
[2022-10-14 16:00] VITALS: BP 132/68; PULSE 89; TEMP 36.9; O2SAT 99
[2022-10-14 16:47] LABS: Glucose Point of Care 97 mg/dl (65-105)
--- NOTE | 2022-10-14 16:47 | PC.NURSE ---
Patient's daughter to check on patient's condition. Informed her he had refused PT for 2nd day. Urine clearing up. pain rated at 0 at this time
[2022-10-14 18:07] LABS: Bilirubin Urine Negative (Negative); Blood Urine 3+ (Negative); Color Urine Yellow (Yellow); Glucose Urine UA Negative (Negative); Ketones Urine Negative (Negative); Leukocyte Esterase Ur 3+ LEU/UL (Negative); Nitrate Urine Positive (Negative); Protein Urine 2+ (Negative); Urobilinogen Urine 0.2 mg/dL (0.2-1.0)
[2022-10-14 18:16] LABS: Add Urine Microscopic? YES; Appearance Urine Turbid (Clear); Bacteria Urine 4+ /hpf; RBC Urine >100 /hpf (0-2); WBC Clumps Urine Present /hpf; WBC Urine >100 /hpf (0-3)
[2022-10-14 20:00] VITALS: PULSE 80; RESP 14; O2SAT 99
[2022-10-14 20:34] VITALS: PULSE 80
[2022-10-14 20:43] LABS: Glucose Point of Care 80 mg/dl (65-105)
[2022-10-15] VITALS: BP 94/56; PULSE 76; RESP 16; TEMP 36.1; O2SAT 98
[2022-10-15 00:10] LABS: Glucose Point of Care 98 mg/dl (65-105)
--- NOTE | 2022-10-15 00:13 | PC.NURSE ---
rechecked blood pressure and blood glucose 94/56 and 98 for glucose reading. pt awake and talking with this nurse, flushed catheter with 60ml of NS, patient tolerated well. mucous threads noted on return and yellow colored urine. no blood at this time.
--- NOTE | 2022-10-15 02:36 | PC.NURSE ---
On 10/15/22, the PRINT SHOP CHIEF CLERK, [Yvonne ], provided care and completed [facility] documentation on this patient. I have reviewed the PRINT SHOP CHIEF CLERK's documentation and agree with the findings.
--- NOTE | 2022-10-15 06:16 | PC.NURSE ---
upon reassessing patient, abdomen continues to be swollen, and the right foot has 2-3+ pitting edema. weak pedal pulse noted and marked. foot is warm, no complaints of pain voiced. negative homans.
[2022-10-15 07:53] LABS: Glucose Point of Care 79 mg/dl (65-105)
[2022-10-15 07:57] VITALS: BP 116/61; PULSE 61; RESP 16; TEMP 36.3; O2SAT 99
[2022-10-15] MEDS: TAMSULOSIN HCL 0.4 MG CAPSULE 0.8 MG PO ×2 (08:23→17:03)
[2022-10-15] MEDS: PANTOPRAZOLE 40 MG TABLET PO (08:23)
[2022-10-15] MEDS: allopurinoL 100 MG TABLET PO (08:23)
[2022-10-15] MEDS: EMPAGLIFLOZIN 10 MG TABLET PO (08:23)
[2022-10-15] MEDS: ATORVASTATIN 10 MG TABLET 20 MG PO (08:23)
[2022-10-15] MEDS: FERROUS SULFATE 325 MG TABLET DR BY MOUTH ×2 (08:24→17:03)
[2022-10-15] MEDS: MAGNESIUM OXIDE 400 MG TABLET PO (08:24)
[2022-10-15] MEDS: FINASTERIDE 5 MG TABLET PO (08:24)
[2022-10-15] MEDS: FOLIC ACID 1 MG TABLET PO (08:24)
[2022-10-15 08:26] VITALS: PULSE 71
[2022-10-15] MEDS: carvediloL 3.125 MG TABLET 1.5625 MG PO ×2 (08:26→20:59)
[2022-10-15] MEDS: INSULIN GLARGINE (*BKC) 1,000 UNITS/10 ML VIAL 15 UNITS SUB-Q (08:28)
--- NOTE | 2022-10-15 09:43 | PC.NURSE ---
Bruising noted to back of right calf during bed bath Charge nurse aware
[2022-10-15 11:46] LABS: Glucose Point of Care 117 mg/dl (65-105)
[2022-10-15 16:00] VITALS: BP 100/60; PULSE 71; RESP 14; TEMP 36.3; O2SAT 100
--- NOTE | 2022-10-15 16:33 | PM.EVENT ---
Event Note Event Note Event Note: I was informed by nursing staff that patient developed right foot swelling since yesterday and is refusing to get out of bed or work with therapy for the past 2 days. Foot/leg visually inspected and palpated. There is no erythema or increased warmth. There is edema overlying lateral malleolus, palpable pedal pulses noted. There is also significant bruising noted to right posterior leg. No other sings of trauma. Ordered venous dopplers to be completed tomorrow and ordered WILLIAMS Schmidt. Differential Dx: DVT, Gout flare, idiopathic swelling, dependent edema, heart failure, trauma, infectious joint (listed from most likely to least likely)
[2022-10-15 16:48] LABS: Glucose Point of Care 98 mg/dl (65-105)
[2022-10-15 19:34] VITALS: PULSE 71; RESP 14; O2SAT 100
[2022-10-15 20:59] VITALS: PULSE 72
[2022-10-15 21:03] LABS: Glucose Point of Care 94 mg/dl (65-105)
--- NOTE | 2022-10-15 21:18 | PC.NURSE ---
urinary catheter flushed with 60ml of NS. patient tolerated well. return of yellow urine with blood steaks and mucous noted.
[2022-10-16] VITALS: BP 103/62; PULSE 82; RESP 16; TEMP 36.1; O2SAT 99
--- NOTE | 2022-10-16 03:06 | PC.NURSE ---
flushed urinary catheter with 60ml of NS, patient tolerated well. return of blood clots, mucous strands, and yellow urine noted. urine is thick. no bladder distention noted at this time. pt did not complain of any pain/discomfort with this procedure.
--- NOTE | 2022-10-16 05:55 | PC.NURSE ---
On 10/16/22, the SPEECH LANG PATH THERAPIST, Yvonne Wilcox, provided care and completed [facility] on this patient. I have reviewed the SPEECH LANG PATH THERAPIST's documentation and agree with the findings.
[2022-10-16 08:00] VITALS: BP 121/71; PULSE 71; RESP 16; TEMP 36.7; O2SAT 100
[2022-10-16] MEDS: INSULIN GLARGINE (*BKC) 1,000 UNITS/10 ML VIAL 15 UNITS SUB-Q (08:59)
[2022-10-16] MEDS: TAMSULOSIN HCL 0.4 MG CAPSULE 0.8 MG PO ×2 (09:00→17:22)
[2022-10-16] MEDS: FERROUS SULFATE 325 MG TABLET DR BY MOUTH ×2 (09:00→17:23)
[2022-10-16] MEDS: FOLIC ACID 1 MG TABLET PO (09:00)
[2022-10-16] MEDS: PANTOPRAZOLE 40 MG TABLET PO (09:00)
[2022-10-16 09:01] VITALS: PULSE 71
[2022-10-16] MEDS: MAGNESIUM OXIDE 400 MG TABLET PO (09:01)
[2022-10-16] MEDS: FINASTERIDE 5 MG TABLET PO (09:01)
[2022-10-16] MEDS: EMPAGLIFLOZIN 10 MG TABLET PO (09:01)
[2022-10-16] MEDS: ATORVASTATIN 10 MG TABLET 20 MG PO (09:01)
[2022-10-16] MEDS: allopurinoL 100 MG TABLET PO (09:01)
[2022-10-16] MEDS: carvediloL 3.125 MG TABLET 1.5625 MG PO ×2 (09:01→20:21)
--- NOTE | 2022-10-16 10:03 | PM.IMPN ---
Progress Note: A&P Assessment and Plan (1) Retention of urine: Code(s): R33.9 - Retention of urine, unspecified Status: Acute Assessment and Plan: Soler catheter in place--Failed prior soler trials. Urology does not want soler out. Spoke with Brenda mosquera Urology she is ok with Starting patient on coumadin and she is aware that if he starts bleeing we will irrigate blood for low hgb if it get to bad patient will need transferred. (2) Acute kidney injury superimposed on CKD: Code(s): N17.9 - Acute kidney failure, unspecified; N18.9 - Chronic kidney disease, unspecified Status: Acute Assessment and Plan: Decreased urine output overnight with abdominal pain. Soler flushed and now draining pyuria. Mild to moderate worsening of renal function on labs drawn today. BUN 46, Cr 2.26, eGFR 28, est creat clear 20 avoid Nephrotic medication Coumadin 5 today and then 3mg with daily HH and PT/INR and Heparin 80 mg as a bridge (3) Diabetes mellitus: Code(s): E11.9 - Type 2 diabetes mellitus without complications Status: Acute Assessment and Plan: Continue fingerstick blood glucose with insulin correction ACHS (4) Generalized weakness: Code(s): R53.1 - Weakness Status: Acute Assessment and Plan: PT/OT continue therapy for strengthening. Continue swing bed status. (5) Pyuria: Code(s): R82.81 - Pyuria Status: Acute Assessment and Plan: Moises pyuria noted after flushing catheter today. No hematuria. Will order UA/UC again (6) Acute on chronic anemia: Code(s): D64.9 - Anemia, unspecified Status: Acute Assessment and Plan: H&H 9.5/29.1--Much improved over prior Daily HH with PT/INR (7) Right leg DVT: Code(s): I82.401 - Acute embolism and thrombosis of unspecified deep veins of right lower extremity Status: Acute Assessment and Plan: Spoke with Brenda mosquera Urology she is ok with Starting patient on Coumadin and she is aware that if he starts bleeding we will irrigate blood for low hgb if it get to bad patient will need transferred Coumadin 5mg today and then 3mg with daily HH and PT/INR Plan UA/UC Continue swing bed status Subjective Date/time seen: 10/16/22 10:03 Interval history: Patient is positive for a DVT in the right common and profunda femoral Veins. Patient has had gross hematuria and is being treated for that Call placed to Urology spoke with Brenda Mosquera and we discussed plan of care. Patient will be started on Coumadin as we can control bleeding or use reversal if indicated. Patient if bleeds in tubing we will continue to irrigate bleeding is ok but if it get to bad and he is in need of CBI he may need to be transferred as he may need a filter to be placed. Patient is complaining of pain and not feeling well. Exam Narrative: GENERAL: Generally well appearing, alert and oriented, in mild to moderate pain distress. He is pleasant and conversant in full sentences. HEENT: Pupils are equally round and briskly reactive to light. Extraocular muscles are intact. Oral mucous membranes are moist without lesions. CHEST/LUNGS: Lungs are clear bilaterally without rhonchi, rales, or wheezes. There is no subcutaneous air appreciated. There is no tenderness to the chest wall. HEART: The patient has a regular rate and rhythm. Distal pulses are 2+. No carotid bruits appreciated. ABDOMEN: The patient?s abdomen is soft, nondistended but tender suprapubically. Bowel sounds are positive. There are no peritoneal signs. GENITOURINARY: Soler in place pinkish urine noted. EXTREMITIES: The patient has no peripheral edema. There is no focal long bone tenderness or deformity. SKIN: The patient?s skin is warm and dry, without rashes or lesions. PSYCHIATRIC: The patient has normal mental status and has an appropriate affect. NEUROLOGIC: There are no gross deficits to the cranial nerves. Objective Data Vital Signs
[2022-10-16] MEDS: ENOXAPARIN 100 MG/ML SYRINGE 80 MG SUB-Q (10:31)
--- NOTE | 2022-10-16 10:51 | PC.NURSE ---
Abdominal measurement: 56 inches
[2022-10-16] MEDS: buPROPion HCL XL (24 HR) 150 MG TABCR PO (12:06)
--- NOTE | 2022-10-16 13:23 | PC.NURSE ---
Patient urinary catheter flushed with 60ml of NS. Patient tolerated well. Blood clots, mucous strands, and yellow urine noted upon return. No bladder distention noted at this time. No c/o pain/discomfort voiced at this time.
[2022-10-16 16:00] VITALS: BP 104/68; PULSE 71; RESP 14; TEMP 36.6; O2SAT 99
--- NOTE | 2022-10-16 16:40 | PC.NURSE ---
Patient received to get up to chair for supper or to walk with PT
[2022-10-16] MEDS: WARFARIN (*PBKC) 5 MG TABLET PO (17:23)
--- NOTE | 2022-10-16 17:37 | PC.NURSE ---
Patient urinary catheter would not flush through flushing port. Unhooked cath bag and flushed through bag port return of blood clot and return of 200 mls of fluid-flush amt was 120 mls. catheter patent and flowing light yellow urine with large amt of sediment after flush
[2022-10-16 20:00] VITALS: PULSE 78; RESP 14; O2SAT 99
[2022-10-16 20:21] VITALS: PULSE 78
[2022-10-16] MEDS: LOPERAMIDE HCL 2 MG CAPSULE PO (20:21)
[2022-10-16] MEDS: ACETAMINOPHEN 325 MG TABLET 650 MG PO (20:22)
[2022-10-17] VITALS: BP 100/64; PULSE 78; RESP 16; TEMP 36.4; O2SAT 98
[2022-10-17 00:41] LABS: Glucose Point of Care 159 mg/dl (65-105)
--- NOTE | 2022-10-17 00:44 | PC.NURSE ---
Scant amount of urine output noted to soler bag, irrigated with 120mL sterile saline, 250mL return of turbid yellow urine with blood tinged mucus strands, bladder scan performed, showing 16mL residual at this time, procedure tolerated well, pt states understanding of purpose and procedure. Abdominal girth measured using side to side estes on pt abdomen, 60.5cm at this time.
--- NOTE | 2022-10-17 05:18 | PC.NURSE ---
Nelson cath irrigated with 120mL sterile saline, 300mL of yellow urine with sediment and few mucus strands, no bleeding at this time. Tolerated well, no distress noted.
[2022-10-17 07:18] LABS: Glucose Point of Care 116 mg/dl (65-105)
[2022-10-17 07:25] VITALS: BP 107/67; PULSE 69; RESP 16; TEMP 35.8; O2SAT 100
[2022-10-17] MEDS: INSULIN GLARGINE (*BKC) 1,000 UNITS/10 ML VIAL 15 UNITS SUB-Q (09:09)
[2022-10-17 09:10] VITALS: PULSE 69
[2022-10-17] MEDS: ENOXAPARIN 100 MG/ML SYRINGE 80 MG SUB-Q (09:10)
[2022-10-17] MEDS: carvediloL 3.125 MG TABLET 1.5625 MG PO (09:10)
[2022-10-17] MEDS: ATORVASTATIN 10 MG TABLET 20 MG PO (09:11)
[2022-10-17] MEDS: TAMSULOSIN HCL 0.4 MG CAPSULE 0.8 MG PO ×2 (09:11→17:29)
[2022-10-17] MEDS: buPROPion HCL XL (24 HR) 150 MG TABCR PO (09:11)
[2022-10-17] MEDS: allopurinoL 100 MG TABLET PO (09:11)
[2022-10-17] MEDS: MAGNESIUM OXIDE 400 MG TABLET PO (09:11)
[2022-10-17] MEDS: EMPAGLIFLOZIN 10 MG TABLET PO (09:11)
[2022-10-17] MEDS: PANTOPRAZOLE 40 MG TABLET PO (09:11)
[2022-10-17] MEDS: FERROUS SULFATE 325 MG TABLET DR BY MOUTH ×2 (09:12→17:30)
[2022-10-17] MEDS: FOLIC ACID 1 MG TABLET PO (09:12)
[2022-10-17] MEDS: FINASTERIDE 5 MG TABLET PO (09:15)
[2022-10-17 11:41] LABS: Glucose Point of Care 252 mg/dl (65-105)
[2022-10-17 11:54] LABS: Anion Gap 7 mmol/L (8-16); Blood Urea Nitrogen 41 mg/dL (7-18); Carbon Dioxide 23 mmol/L (21-32); Chloride 107 mmol/L (98-108); Estimated CRCL calculation 21 ml/min; Estimated Glomerular Filt Rate 29; Glucose 200 mg/dL (70-99); Osmolality Calculated 300 mOsm/kg (285-295); Potassium 4.1 mmol/L (3.5-5.1); Sodium 137 mmol/L (136-145)
[2022-10-17 12:10] LABS: Hematocrit 23.3 % (37.0-46.0); Hemoglobin 7.4 g/dL (12.4-15.3); Mean Corpuscular HGB Conc 31.8 g/dL (32.0-36.0); Mean Corpuscular Hemoglobin 32.5 pg (27.0-31.0); Mean Corpuscular Volume 102.2 fL (78.0-102.0); Platelet Count Result 28 K/mm3 (150-420); Red Blood Count 2.28 M/mm3 (4.70-6.10); Red Cell Distribution Width 16.6 % (11.6-14.4); White Blood Count 1.9 K/mm3 (4.8-10.8)
[2022-10-17 12:33] LABS: Band Neutrophils Percent 6 % (0-6); Basophils Absolute Manual 0.01 K/mm3 (0-0.1); Basophils Percent Manual 1 % (0-1); Eosinophils Percent Manual 0 % (1-6); Lymphocytes Absolute Manual 0.53 K/mm3 (1.1-4.5); Lymphocytes Percent Manual 28 % (18-44); Monocytes Absolute Manual 0.19 K/mm3 (0.1-0.90); Monocytes Percent Manual 10 % (3-9); Neutrophils Absolute Manual 1.15 K/mm3 (1.3-6.7); Neutrophils Percent Manual 55 % (46-73); Total Cells Counted 100
[2022-10-17 12:34] LABS: Platelet Estimate Decreased (Adequate)
[2022-10-17] MEDS: ACETAMINOPHEN 325 MG TABLET 650 MG PO (13:44)
[2022-10-17 14:45] LABS: Glucose Point of Care 145 mg/dl (65-105)
[2022-10-17 14:46] LABS: Glucose Point of Care 202 mg/dl (65-105)
[2022-10-17 14:48] LABS: Glucose Point of Care 104 mg/dl (65-105)
--- NOTE | 2022-10-17 15:24 | PC.NURSE ---
Pt sleeping on assessment but awakens easily. He states his H/A and body aches from earlier are better c the Tylenol he was given. Pt reports feeling very weak, he is very pale in color but remains A&O x3. Report received on bld counts. NURSE TRANSITION aware and on phone c hematology. VSS at this time. Call grayson at pt side.
--- NOTE | 2022-10-17 15:50 | PCOTNOTE ---
Patient unable to participate in OT session due to medical status. Nurse practitioner advised against treatment at this time.
[2022-10-17 15:59] VITALS: BP 125/68; PULSE 78; RESP 18; TEMP 36.5; O2SAT 99
--- NOTE | 2022-10-17 16:01 | PC.NURSE ---
UA collected per order of PIN SORTER AND BAGGER and sent to lab. Nelson cath then irrigated c 120ml sterile water and immediate return of approx 200ml of cloudy yellow urine c some sediment present. Pt tolerated fairly well.
[2022-10-17 16:13] LABS: INR 1.1; Partial Thromboplastin Time 39.2 SEC (23.90-30.70); Prothrombin Time 12.4 Seconds (9.50-12.10)
[2022-10-17 16:14] LABS: Immature Reticulocyte Fraction 2.3 % (2.0-16.52); Reticulocyte Percent 0.26 % (0.50-1.50); Reticulocytes Absolute 0.01 M/mm3 (0.02-0.1)
--- NOTE | 2022-10-17 16:16 | PC.NURSE ---
Pts daughter at bedside, discussing POC for transfer to [facility]. Pt is tearful about POC, reassurance given. Marie PALOMINO arranging bed for transfer to [place].
[2022-10-17 16:24] LABS: Appearance Urine Turbid (Clear); Bilirubin Urine Negative (Negative); Blood Urine 3+ (Negative); Color Urine Yellow (Yellow); Glucose Urine UA 2+ (Negative); Ketones Urine Negative (Negative); Leukocyte Esterase Ur 3+ (Negative); Nitrate Urine Negative (Negative); Protein Urine 2+ (Negative); Urobilinogen Urine 0.2 mg/dL (0.2-1.0)
[2022-10-17 16:29] LABS: Lactate Dehydrogenase 124 U/L (85-227)
[2022-10-17 16:35] LABS: Glucose Point of Care 188 mg/dl (65-105)
[2022-10-17 16:35] LABS: Add Urine Microscopic? YES; RBC Urine >75 /hpf (0-2); Squamous Epithelial Cell Urine Rare /hpf (Few); WBC Urine >75 /hpf (0-3)
[2022-10-17 16:36] LABS: Bacteria Urine 1+ /hpf
--- NOTE | 2022-10-17 16:41 | PM.TDS ---
Transfer Discharge Sum: Prov Provider Date of admission: 10/11/22 17:15 Primary care physician: Yeyo Henriquez MD Admitting clinician: Lamonte Briggs MD Receiving physician/facility: Accepting provider Anastasia Kim DEALER COMPLIANCE REPRESENTATIVE with Dr. Briggs at [facility] DS: Admitting Diagnosis Discharge Date 10/17/22 Admitting Diagnosis 1. Weakness 2. Hematuria/anemia 4. Urinary retention DS: Discharge Diagnosis Discharge Diagnosis (1) Right leg DVT: Code(s): I82.401 - Acute embolism and thrombosis of unspecified deep veins of right lower extremity Status: Acute (2) Pancytopenia: Code(s): D61.818 - Other pancytopenia Status: Acute (3) Hematuria: Qualifiers: Hematuria type: gross Qualified Code(s): R31.0 - Gross hematuria Code(s): R31.9 - Hematuria, unspecified Status: Acute (4) Retention of urine: Code(s): R33.9 - Retention of urine, unspecified Status: Acute Plan A/P 1. Right lower extremity DVT- during this admission patient was noted to have swelling to right lower extremity and it was ultimately found the patient had a right lower extremity DVT. Patient was then placed on Lovenox to bridge with Coumadin. Patient received 1 dose of Lovenox yesterday at 80 mg and received a dose of 5 mg of Coumadin. Today laboratories were checked this afternoon and it was noted that patient had significantly worsening pancytopenia with a white blood cell count of 1.9, hemoglobin of 7.4, hematocrit of 23.3, and a platelet count of 28. See next number for further information. 2. Pancytopenia- as stated above patient was noted to have a right lower extremity DVT and was placed on Lovenox and Coumadin. Secondary to patient's renal function patient is full dose of Lovenox was 80 mg once daily, which he did receive yesterday. Patient also received Coumadin 5 mg. Laboratories were checked this afternoon and it was noted that patient had a significant decrease in white blood cells, hemoglobin, hematocrit, and platelets from previous pancytopenia. Patient had been seen by Hematology at [facility] and a call was placed to residential assistant for recommendations regarding transfer. After speaking with Dr. Luther the residential assistant that saw patient during last admission [place] he thought it best be to stop anticoagulation and have an IVC filter placed. Explained that that would not be able to occur here and he thought it would be calvin is to transfer patient. Dr. Luther inquired if a HIT antibody and a flow cytometry for PNH could be performed at this hospital. Explained that a HIT antibody will be a send out laboratory and that could be approximately 5 days before results would return. Did start a workup for PNH with a reticulocyte count, LDH, and direct Caitlin. Patient's reticulocyte % was significantly lower than previously at 0.26. On July 10, 2022 reticulocyte % was 1.36. Patient's LDH is 124 and patient's INDIRA was negative. Patient is to be transferred to [facility] and Dr. Luther is to be consulted upon arrival. 3. Hematuria- patient had a change in color of urine noted this afternoon and a urinalysis was sent. Patient continues to have greater than 75 urine rbc's. Patient also does have greater than 75 wbc's with 3+ leukocyte esterase and 1+ urine bacteria. Patient did have a positive VRE on urine culture from 10/03/2022 and patient did finish a full course of linezolid. Patient did have a repeat urinalysis performed on 10/14/2022 and the culture showed mixed normal mae. Patient is being transferred to a higher level of care and Urology is to be consulted at that time a decision can be made regarding antibiotic therapy if needed. Urine has been sent for culture. 4. Urinary retension-patient does have a Nelson catheter placed that is being flushed at minimum once that shift. Catheter will be flushed more often if blood clots are noted or patient has increased mucus
--- NOTE | 2022-10-17 17:13 | PC.NURSE ---
Pt refused to eat dinner tonight,pt tearful about transfer and need for further procedures. Family at pt bedside. Rm received that pt is to go to [facility]. Report called at this time.
--- NOTE | 2022-10-17 17:26 | PC.NURSE ---
Report given to YARELIS Carlos for pt transfer to [facility]. staff command and control officer to call for transfer.
--- NOTE | 2022-10-17 17:53 | PC.NURSE ---
[facility] here for pt rtransfer, report given to [facility] crew. Pt remains alert and oriented. Transfered to cot s difficulty.
== END 2022-10-17 18:00 | disposition short-term general hospital (02) | DRG 948 ==
PROVIDERS: Nurse Practitioner; Nurse Practitioner Adult Health; Admitting Provider Internal Medicine; PCP Internal Medicine; Visit Provider Internal Medicine
DX: R53.1 Weakness (principal); N17.9 Acute kidney failure, unspecified; I82.411 Acute embolism and thrombosis of right femoral vein; D61.818 Other pancytopenia; I12.9 Hypertensive chronic kidney disease with stage 1 through stage 4 chronic kidney disease, or unspecified chronic kidney disease; N18.9 Chronic kidney disease, unspecified; I25.10 Atherosclerotic heart disease of native coronary artery without angina pectoris; E87.6 Hypokalemia; E11.22 Type 2 diabetes mellitus with diabetic chronic kidney disease; E78.5 Hyperlipidemia, unspecified; N40.1 Benign prostatic hyperplasia with lower urinary tract symptoms; R33.8 Other retention of urine; R82.81 Pyuria; R31.9 Hematuria, unspecified; M10.9 Gout, unspecified; Z95.5 Presence of coronary angioplasty implant and graft; Z79.82 Long term (current) use of aspirin; Z79.4 Long term (current) use of insulin; Z79.84 Long term (current) use of oral hypoglycemic drugs; Z87.442 Personal history of urinary calculi; Z86.010 Personal history of colon polyps
CPT/HCPCS: 36415; 74176; 80048; 80069; 81001; 82948; 83615; 85025; 85046; 85055; 85610; 85730; 86880; 87086; 87088; 93970; 97110; 97161; 97165; 97530; 97535; A9270; J1650; J1815

== ENCOUNTER 2022-10-17 21:15 | Inpatient (IN) | payer MEDICARE, SELFPAY ==
[2022-10-17 18:54] VITALS: BMI 21.8
[2022-10-17 18:55] VITALS: BP 117/64; PULSE 81; RESP 18; TEMP 36.1; O2SAT 100
--- NOTE | 2022-10-17 19:08 | ADMGEN ---
This patient, Jaspal Ruggiero, was admitted to Medical Room 254-01. Patient/family oriented to hospital policies and general routines including ID bracelet, bed and alarms, visiting hours, pain management, procedures, bathroom and other care routines, personal items, smoking policy, room service/diet, and visiting hours. Information on how to activate the Rapid Response Team has been discussed. Patient/Family are encouraged to report perceived risks to care and to ask questions if they do not understand what they are told or what they should do.
[2022-10-17 20:00] VITALS: PULSE 81; RESP 18; O2SAT 100
--- NOTE | 2022-10-17 21:11 | PM.IMHP ---
H&P: HPI History of Present Illness Date/Time: 10/17/22 21:11 Chief Complaint: pancytopenia with DVT. Narrative: This is an 87-year-old male patient who was a direct admit from [facility]. Right lower extremity DVT- during this admission At [facility], the patient was noted to have swelling to right lower extremity and it was ultimately found the patient had a right lower extremity DVT.? Patient was then placed on Lovenox to bridge with Coumadin.? Patient received 1 dose of Lovenox yesterday at 80 mg and received a dose of 5 mg of Coumadin.? Today laboratories were checked this afternoon and it was noted that patient had significantly worsening pancytopenia with a white blood cell count of 1.9, hemoglobin of 7.4, hematocrit of 23.3, and a platelet count of 28.? See next number for further information. he developed Pancytopenia- as stated above patient was noted to have a right lower extremity DVT and was placed on Lovenox and Coumadin.? Secondary to patient's renal function patient is full dose of Lovenox was 80 mg once daily, which he did receive yesterday.? Patient also received Coumadin 5 mg.? Laboratories were checked this afternoon and it was noted that patient had a? significant decrease in white blood cells, hemoglobin, hematocrit, and platelets from previous pancytopenia.? Patient had been seen by Hematology at [facility] in the past and a call was placed to rfp writer for recommendations regarding transfer as per Marie Moore..? After speaking with Dr. Luther the rfp writer that saw patient during last admission [place] he thought it best be to stop anticoagulation and have an IVC filter placed.? Explained that that would not be able to occur here and he thought it would be calvin is to transfer patient.? Dr. Luther inquired if a HIT antibody and a flow cytometry for PNH? could be performed at this hospital.? Explained that a HIT antibody will be a send out laboratory and that could be approximately 5 days before results would return.? Did start a workup for PNH with a reticulocyte count, LDH, and direct Caitlin.? Patient's reticulocyte? % was significantly lower than previously at 0.26.? On July 10, 2022 reticulocyte? % was 1.36.? Patient's LDH is 124 and patient's INDIRA was negative.? Patient is to be transferred to [facility] and Dr. Luther is to be consulted upon arrival. He also has Hematuria- patient had a change in color of urine noted this afternoon and a urinalysis was sent.? Patient continues to have greater than 75 urine rbc's.? Patient also does have? greater than 75 wbc's with 3+ leukocyte esterase and 1+ urine bacteria.? Patient did have a positive VRE on urine culture from 10/03/2022 and patient did finish a full course of linezolid.? Patient did have a repeat urinalysis performed on 10/14/2022 and the culture showed mixed normal mae.? Patient is being transferred to a higher level of care and Urology is to be consulted at that time a decision can be made regarding antibiotic therapy if needed.? Urine has been sent for culture. Urinary retention-patient does have a Nelson catheter placed that is being flushed at minimum once that shift.? Catheter will be flushed more often if blood clots are noted or patient has increased mucus. the patient is being admitted to inpatient status to [facility] on 10/17/2022. Review of Systems Review of Systems: All systems reviewed & are unremarkable except as noted in HPI and below Constitutional: Constitutional: Reports as per HPI and Reports no additional constitutional complaints Eyes: Eyes: Reports as per HPI and Reports no additional eye complaints ENT: Reports system reviewed and no additional complaints, except as documented and Reports Normal hearing present Cardiovascular: Cardiovascular: Reports no additional cardiovascular complaints Respiratory: Respiratory: Reports no additional respiratory complaints and Reports no additional respiratory complai
[2022-10-17 21:30] LABS: Glucose Point of Care 129 mg/dl (65-105)
[2022-10-18 01:51] LABS: Hematocrit 21.7 % (42.0-52.0)
[2022-10-18 02:05] LABS: Hemoglobin 6.9 g/dL (14.0-18.0)
[2022-10-18 05:13] VITALS: BP 107/56; PULSE 72; RESP 16; TEMP 36.6; O2SAT 100
[2022-10-18 06:26] LABS: Hematocrit 22.6 % (42.0-52.0); Hemoglobin 7.2 g/dL (14.0-18.0)
[2022-10-18 06:30] LABS: Alanine Aminotransferase 19 U/L (6-50); Albumin Level 2.1 g/dL (3.5-5.1); Alkaline Phosphatase 157 U/L (38-126); Anion Gap 3 mmol/L (8-16); Aspartate Amino Transferase 25 U/L (17-59); Bilirubin,Total 0.4 mg/dL (0.2-1.3); Blood Urea Nitrogen 39 mg/dL (9-20); Carbon Dioxide 21 mmol/L (22-30); Chloride 109 mmol/L (98-107); Estimated CRCL calculation 24 ml/min; Estimated Glomerular Filt Rate 34; Glucose 87 mg/dL (65-110); Lipase 83 U/L (23-300); Magnesium 1.9 mg/dL (1.6-2.3); Potassium 4.2 mmol/L (3.4-5.0); Sodium 133 mmol/L (137-145)
[2022-10-18 06:38] LABS: Hemoglobin A1C 5.7 % (<5.7)
[2022-10-18] MEDS: ATORVASTATIN 20 MG TABLET PO (08:22)
[2022-10-18] MEDS: TAMSULOSIN HCL 0.4 MG CAPSULE 0.8 MG PO (08:22)
[2022-10-18] MEDS: allopurinoL 100 MG TABLET PO (08:22)
[2022-10-18 08:23] VITALS: PULSE 74
[2022-10-18 08:23] LABS: Glucose Point of Care 94 mg/dl (65-105)
[2022-10-18] MEDS: FOLIC ACID 1 MG TABLET PO (08:23)
[2022-10-18] MEDS: FINASTERIDE 5 MG TABLET PO (08:23)
[2022-10-18] MEDS: PANTOPRAZOLE 40 MG TABLET PO (08:23)
[2022-10-18] MEDS: EMPAGLIFLOZIN 10 MG TABLET PO (08:23)
[2022-10-18] MEDS: MAGNESIUM OXIDE 400 MG TABLET PO (08:23)
[2022-10-18] MEDS: FERROUS SULFATE 325 MG TABLET DR BY MOUTH ×2 (08:23→17:51)
[2022-10-18] MEDS: carvediloL 1.56 MG TABLET PO ×2 (08:23→21:20)
[2022-10-18] MEDS: INSULIN GLARGINE (*BKC) 100 UNITS/ML 15 UNITS SUB-Q (08:25)
--- NOTE | 2022-10-18 11:26 | WPDURCON ---
Assessment and Plan Assessment and plan (1) Retention of urine: Code(s): R33.9 - Retention of urine, unspecified Status: Acute Assessment and Plan: Patient will need to have monthly catheter changes as he failed his voiding trial and is unable to self catheterize. (2) Right leg DVT: Code(s): I82.401 - Acute embolism and thrombosis of unspecified deep veins of right lower extremity Status: Acute (3) Pyuria: Code(s): R82.81 - Pyuria Status: Acute Assessment and Plan: Urine is cloudy and yellow but draining to gravity, continue with BID irrigations to keep tubing patent. No need to start CBI at this time, urine is not bloody. If bleeding should begin again, a cystoscopy with possible fulguration would be necessary. The patient ultimately needs a Prostate Artery Embolization as an outpatient when he is able to be discharged from the hospital or rehab. Urology Consult Note HPI Date Seen: 10/18/22 Time Seen: 11:26 Requesting Physician: Lamonte Briggs MD Primary Care Provider: Yeyo Henriquez MD Consult Narrative Reason for consult: Hematuria Narrative: Jaspal Ruggiero is a 87 year old male who presented as a transfer from [facility] for acute onset of gross hematuria and management of a newly diagnosed DVT. He is a well known patient to us who has been in and out of [place] for retention and gross hematuria for the past few weeks. He had a Venous Doppler on 10/16/22 which showed DVT of the right common and profunda femoral veins as well as a CT on 10/13/22 which shows hemorrhagic cystitis, proteinaceous, crystalline bladder debris. He has a negative urine culture as of 10/14/22, creatinine is improved at 1.9 from 2.14 from 10/17/22 and WBC of 1.9. He is hypotensive but afebrile. He denies any pain or hematuria. He failed a voiding trial at his last office visit. He was planned to have a cysto at his last admission but Dr. Luther placed him on Amicar which stopped his bleeding in addition to BID irrigations to clear the tubing. He was then transferred back to [place] for a swing bed/rehab when he developed the DVT and needed to start anticoagulants. Unfortunately, this has restarted hematuria again. Review of Systems Constitutional: Constitutional: Reports fatigue Cardiovascular: Cardiovascular: Denies chest pain Respiratory: Respiratory: Reports no additional respiratory complaints Gastrointestinal: Gastrointestinal: Denies abdominal pain, Denies nausea and Denies vomiting Genitourinary: Genitourinary: Reports hematuria, Denies flank pain, Denies urinary frequency, Denies urinary hesitancy and Denies urinary urgency PMF Past Medical History Medical History Acute on chronic anemia Acute UTI (urinary tract infection) BPH (benign prostatic hyperplasia) CAD (coronary artery disease) Dehydration, mild Gout History of colon polyps History of kidney stones Hyperglycemia due to diabetes mellitus Hyperlipidemia Hypertension Melena Pancytopenia Pneumonia Right leg DVT Viral syndrome Surgical History Surgical History H/O colonoscopy with polypectomy H/O hernia repair H/O removal of cyst On his chest History of back surgery History of cardiac catheterization Hx of cholecystectomy Stented coronary artery 2015, and 2018 Family History Family History Father Diabetes mellitus Heart disease Acute myocardial infarction Sibling Diabetes mellitus Social History Social History Social History: The patient lives with his and has 2 Children. Patient is retired from [employer]. The patient stated he used to drink heavily but does not drink anymore. His is the durable power real estate attorney for healthcare. Code status dnr Smoking s
--- NOTE | 2022-10-18 11:53 | PM.IMPN ---
Progress Note: A&P Assessment and Plan (1) Right leg DVT: Code(s): I82.401 - Acute embolism and thrombosis of unspecified deep veins of right lower extremity Status: Acute Assessment and Plan: as per Anurag note Right lower extremity DVT- during this admission patient was noted to have swelling to right lower extremity and it was ultimately found the patient had a right lower extremity DVT.? Patient was then placed on Lovenox to bridge with Coumadin.? Patient received 1 dose of Lovenox yesterday at 80 mg and received a dose of 5 mg of Coumadin.? Today laboratories were checked this afternoon and it was noted that patient had significantly worsening pancytopenia with a white blood cell count of 1.9, hemoglobin of 7.4, hematocrit of 23.3, and a platelet count of 28.? Pancytopenia- as stated above patient was noted to have a right lower extremity DVT and was placed on Lovenox and Coumadin.? Secondary to patient's renal function patient is full dose of Lovenox was 80 mg once daily, which he did receive yesterday.? Patient also received Coumadin 5 mg.? Laboratories were checked this afternoon and it was noted that patient had a? significant decrease in white blood cells, hemoglobin, hematocrit, and platelets from previous pancytopenia.? Patient had been seen by Hematology at [facility] and a call was placed to duplicating machine servicer for recommendations regarding transfer.? After speaking with Dr. Luther the duplicating machine servicer that saw patient during last admission [place] he thought it best be to stop anticoagulation and have an IVC filter placed.? Explained that that would not be able to occur here and he thought it would be calvin is to transfer patient.? Dr. Luther inquired if a HIT antibody and a flow cytometry for PNH? could be performed at this hospital.? Explained that a HIT antibody will be a send out laboratory and that could be approximately 5 days before results would return.? Did start a workup for PNH with a reticulocyte count, LDH, and direct Caitlin.? Patient's reticulocyte? % was significantly lower than previously at 0.26.? On July 10, 2022 reticulocyte? % was 1.36.? Patient's LDH is 124 and patient's INDIRA was negative.? Patient is to be transferred to [facility] and Dr. Luther is to be consulted upon arrival. anticoagulation has been held and surgery has been consulted for possible IVC filter. Dr. Luther has also been consulted. Venous ultrasound on : Deep venous thrombosis of the right common and profunda femoral veins. (2) Pancytopenia: Code(s): D61.818 - Other pancytopenia Status: Acute Assessment and Plan: as per [place] note?Pancytopenia- as stated above patient was noted to have a right lower extremity DVT and was placed on Lovenox and Coumadin.? Secondary to patient's renal function patient is full dose of Lovenox was 80 mg once daily, which he did receive yesterday.? Patient also received Coumadin 5 mg.? Laboratories were checked this afternoon and it was noted that patient had a? significant decrease in white blood cells, hemoglobin, hematocrit, and platelets from previous pancytopenia.? Patient had been seen by Hematology at [facility] and a call was placed to duplicating machine servicer for recommendations regarding transfer.? After speaking with Dr. Luther the duplicating machine servicer that saw patient during last admission [place] he thought it best be to stop anticoagulation and have an IVC filter placed.? Explained that that would not be able to occur here and he thought it would be calvin is to transfer patient.? Dr. Luther inquired if a HIT antibody and a flow cytometry for PNH? could be performed at this hospital.? Explained that a HIT antibody will be a send out laboratory and that could be approximately 5 days before results would return.? Did start a workup for PNH with a reticulocyte count, LDH, and direct Caitlin.? Patient's reticulocyte? % was significantly lower than previously at 0.26.? On July 10, 2022 reticul
[2022-10-18 11:59] LABS: Glucose Point of Care 136 mg/dl (65-105)
[2022-10-18 12:44] LABS: Hematocrit 24.7 % (42.0-52.0); Hemoglobin 7.7 g/dL (14.0-18.0)
[2022-10-18] MEDS: buPROPion HCL XL (24 HR) 150 MG TABCR PO (13:59)
[2022-10-18 14:27] VITALS: BP 107/54; PULSE 72; RESP 18; TEMP 36.6; O2SAT 100
[2022-10-18 16:40] LABS: Glucose Point of Care 95 mg/dl (65-105)
--- NOTE | 2022-10-18 17:04 | PC.NURSE ---
On 10/18/22, the Licence pending nurse, Jillian Mullins, provided care and completed [employer] documentation on this patient. I have reviewed the Licence pending nurses documentation and agree with the findings.
--- NOTE | 2022-10-18 17:20 | PM.CNGS ---
Assessment and Plan Assessment and plan (1) Right leg DVT: Qualifiers: Affected thrombotic vein of extremity: femoral Chronicity: acute Qualified Code(s): I82.411 - Acute embolism and thrombosis of right femoral vein Code(s): I82.401 - Acute embolism and thrombosis of unspecified deep veins of right lower extremity Status: Acute Assessment and Plan: I have reviewed the ultrasound and discussed the findings with the patient. He has evidence of a right lower extremity DVT. He is not a candidate for anticoagulation given his pancytopenia. I will have to recheck his platelets in the morning to ensure that he is safe for a procedure. As long as platelet levels are greater than 15,000, it should be safe to proceed with IVC filter placement. I have discussed the procedure, risks, benefits, and alternatives. Questions were answered. Patient is agreeable to proceeding. (2) Pancytopenia: Code(s): D61.818 - Other pancytopenia Status: Acute (3) Acute on chronic anemia: Code(s): D64.9 - Anemia, unspecified Status: Acute (4) CAD (coronary artery disease): Code(s): I25.10 - Atherosclerotic heart disease of [place] coronary artery without angina pectoris Status: Chronic (5) Cirrhosis: Code(s): K74.60 - Unspecified cirrhosis of liver Status: Acute History of Present Illness Consult details Consult date: 10/18/22 Reason for consult: other (Inferior vena cava filter placement) Requesting physician: Anastasia Kim NP Narrative: This is an 87-year-old man who I am asked to see for an IVC filter placement. The has multiple comorbidities and has been hospitalized with multiple issues recently. He was at [facility] was complaining of some right lower extremity pain and was found to have a right lower extremity DVT on ultrasound. He was then placed on Lovenox and Coumadin but became profoundly pancytopenic. He does not have any signs of active bleeding but hemoglobin had dropped from 9.5 on 10/14 to 7.4 on 10/17. He was transferred to [facility] for further treatment. The patient has coronary artery disease, cirrhosis with portal hypertension, diabetes, and bladder outlet obstruction. Review of Systems Review of Systems: All systems reviewed & are unremarkable except as noted in HPI and below Eyes: Eyes: Denies change in vision ENT: Denies hearing loss, Denies neck pain and Denies sore throat Cardiovascular: Cardiovascular: Denies chest pain and Denies dyspnea Respiratory: Respiratory: Denies cough, Denies dyspnea and Denies wheezing Genitourinary: Genitourinary: Denies hematuria and Denies dysuria Musculoskeletal: Musculoskeletal: Denies arthralgias, Denies joint swelling and Denies neck pain Allergic/Immunologic: Allergic/Immunologic: Denies wheezing PMFSH Past Medical History Medical History Acute on chronic anemia Acute UTI (urinary tract infection) BPH (benign prostatic hyperplasia) CAD (coronary artery disease) Dehydration, mild Gout History of colon polyps History of kidney stones Hyperglycemia due to diabetes mellitus Hyperlipidemia Hypertension Melena Pancytopenia Pneumonia Right leg DVT Viral syndrome Surgical History Surgical History H/O colonoscopy with polypectomy H/O hernia repair H/O removal of cyst On his chest History of back surgery History of cardiac catheterization Hx of cholecystectomy Stented coronary artery 2015, and 2018 Family History Family History Father Diabetes mellitus Heart disease Acute myocardial infarction Sibling Diabetes mellitus Social History Social History Social History: The patient lives with his and has 2 Children. Patient is retired from a
[2022-10-18 19:09] LABS: Hematocrit 22.5 % (42.0-52.0)
--- NOTE | 2022-10-18 19:23 | PDONCCN ---
HPI - Date of Consult Date/Time: 10/18/22 19:23 Requesting Physician: Lamonte Briggs MD Primary Care Provider: Yeyo Henriquez MD - Consult Narrative Reason for consult: Hematuria Narrative: Jaspal Ruggiero is a 87 year old male with multiple comorbidities including liver cirrhosis and pancytopenia recent diagnosis of right lower extremity DVT, hypertension and hematuria. Patient was transferred from [facility] due to diagnosis of DVT and worsening of pancytopenia. He was started on Lovenox bridging with Coumadin due to diagnosis of DVT recently but developed further hematuria. Hemoglobin dropped to 6.9. Platelet count dropped from 65k to 28k. I have suggested transferred to the [facility] for IVC filter placement and further management of worsening of pancytopenia. Review of Systems - Review of Systems All systems reviewed & are unremarkable except as noted in HPI and bel - Neurologic Reports system reviewed and no additional complaints, except as documented, Reports hearing normal [facility] Medical History: Medical History (Last Reviewed 10/18/22 @ 11:37 by Brenda Mosquera APRN) Acute on chronic anemia Acute UTI (urinary tract infection) BPH (benign prostatic hyperplasia) CAD (coronary artery disease) Dehydration, mild Gout History of colon polyps History of kidney stones Hyperglycemia due to diabetes mellitus Hyperlipidemia Hypertension Melena Pancytopenia Pneumonia Right leg DVT Viral syndrome Surgical History: Surgical History (Last Reviewed 10/18/22 @ 11:37 by Brenda Mosquera APRN) H/O colonoscopy with polypectomy H/O hernia repair H/O removal of cyst On his chest History of back surgery History of cardiac catheterization Hx of cholecystectomy Stented coronary artery 2015, and 2018 Family History: Family History (Last Reviewed 10/18/22 @ 11:37 by Brenda Mosquera APRN) Father Diabetes mellitus Heart disease Acute myocardial infarction Sibling Diabetes mellitus - Social History Social History: Social History (Last Reviewed 10/18/22 @ 11:37 by Brenda Mosquera APRN) Alcohol Use: Alcohol intake: never Drinks per week: 2 Substance Use: Substance use: never Substance use type: does not use Others: Spiritual care concerns: No Living Arrangements: Living arrangements: with family Smoking Status: Smoking status: Never smoker Second hand tobacco smoke exposure: No Social Determinants of Health: Has the Lack of Transportation Kept You From Medical Appointments or From Getting Medications?: No Within the Past 12 Months, Were You Worried Whether Your Food Would Run Out Before You Got Money to Buy More?: Never True What is Your Housing Situation Today?: I Have Housing Are You Worried That in the Next 2 Months, You May Not Have Your Own Housing to Live In?: Yes Do You Have Trouble Paying Your Heating Or Electricity Bill?: No Do You Have Trouble Paying For Medicines?: No Are You Currently Unemployed and Looking for Work?: No Highest Level of Education Completed: High School Diploma/GED Do You Have Trouble With Childcare or the Care of a Family Member?: No Exam - Vital Signs Vital Signs - 24 hr 10/17/22 20:00 10/18/22 05:13 10/18/22 08:23 Temperature 36.6 C Pulse Rate 81 72 74 Respiratory Rate 18 16 Blood Pressure 107/56 L Pulse Oximetry 100 100 Oxygen Delivery Room Air 10/18/22 14:27 10/18/22 08:20 Temperature 36.6 C Pulse Rate 72 Respiratory Rate 18 Blood Pressure 107/54 L Pulse Oximetry 100 Oxygen Delivery Room Air - Exam HEENT: EOMI, PERRLA, mucous membranes moist and pink Neck: supple. No: JVD Lungs: clear to auscultation Heart: no murmurs, gallops, or rubs, regular rhythm, regular rate Abdomen: abdomen soft, non-distended, normal bowel sounds Extremities: normal pulses Integumentary: no abnormalities Neurological: normal s
[2022-10-18 21:20] VITALS: PULSE 78
[2022-10-18 22:27] VITALS: BP 105/56; PULSE 77; RESP 21; TEMP 36.5; O2SAT 100
[2022-10-19] VITALS (13 sets, daily range): BP systolic 90–117; BP diastolic 58–69; PULSE 73–78; RESP 14–21; TEMP 36.1–36.7; O2SAT 98–100
[2022-10-19 01:22] LABS: Hematocrit 22.8 % (42.0-52.0); Hemoglobin 7.2 g/dL (14.0-18.0)
[2022-10-19 03:12] LABS: Glucose Point of Care 106 mg/dl (65-105)
[2022-10-19 05:36] LABS: Basophils Percent Auto 0.4 % (0.2-1.2); Eosinophils Absolute Auto 0.1 K/mm3 (0-0.3); Eosinophils Percent Auto 3.2 % (0-4.4); Hematocrit 23.7 % (42.0-52.0); Hemoglobin 7.4 g/dL (14.0-18.0); Immature Granulocyte Absolute 0.02 K/mm3 (0.00-0.031); Immature Granulocyte Percent A 0.8 % (0-0.5); Immature Platelet Fraction Pct 3.8 % (0.9-11.2); Lymphocytes Absolute Auto 0.58 K/mm3 (0.9-3.2); Lymphocytes Percent Auto 23.1 % (18.3-44.2); Mean Corpuscular HGB Conc 31.2 g/dl (32-36); Mean Corpuscular Hemoglobin 31.5 pg (26-34); Mean Corpuscular Volume 100.9 fl (80-100); Mean Platelet Volume 11.2 fl (7.4-10.4); Monocytes Absolute Auto 0.3 K/mm3 (0.1-0.6); Monocytes Percent Auto 10.4 % (2.6-8.5); Neutrophils Absolute Auto 1.6 K/mm3 (1.3-6.7); Neutrophils Percent Auto 62.1 % (45.5-73.1); Platelet Count Result 33 k/mm3 (150-375); Red Blood Count 2.35 M/mm3 (4.6-6.20); Red Cell Distribution Width 16.5 % (11.5-14.5); White Blood Count 2.5 K/mm3 (4.5-10.0)
[2022-10-19 06:00] LABS: Anion Gap 1 mmol/L (8-16); Blood Urea Nitrogen 36 mg/dL (9-20); Calcium 7.8 mg/dL (8.4-10.2); Carbon Dioxide 21 mmol/L (22-30); Chloride 109 mmol/L (98-107); Estimated CRCL calculation 22 ml/min; Estimated Glomerular Filt Rate 32; Glucose 75 mg/dL (65-110); Potassium 3.9 mmol/L (3.4-5.0); Sodium 131 mmol/L (137-145)
[2022-10-19 08:24] LABS: Glucose Point of Care 82 mg/dl (65-105)
--- NOTE | 2022-10-19 09:33 | WPDHPUPDATE1 ---
History and Physical Update Update Date/Time: 10/19/22 09:33 History and Physical has been reviewed, including an updated exam of the patient. There are NO changes in the patient's condition. Risks, benefits, and alternatives have been discussed and questions answered. Patient agrees to proceed with procedure.
--- NOTE | 2022-10-19 10:03 | P.OP_ITS ---
Procedure Note - Detailed Date of Procedure 10/19/22 Pre-op Diagnosis DVT/Hematuria/Pancytopenia Post-op Diagnosis Same Procedure Performed IVC filter placement using ultrasound and fluoroscopic guidance Surgeon Marcio Park, DO Anesthesia Local (1% Lidocaine) Indications right lower extremity DVT and pancytopenia Findings Sinosite ultrasound was used to identify the right femoral vein. This was visualized as a compressible vessel just medial to the pulsatile femoral artery. The 18 gauge introducer needle was advanced under ultrasound guidance. Fluoroscopy was then used to guide advancement of the guidewire followed by the dilator and sheath. Final fluoroscopic images demonstrated the filter in proper position at the level of the L3 vertebral body. Description of Procedure Patient was brought back to orthodontic laboratory technician suite. He was placed supine orthodontic laboratory technician table. Time-out was done to confirm patient procedure. His right groin was prepped and draped in sterile fashion using chlorhexidine prep. SonoSite ultrasound was used to identify the right femoral vein. This was visualized as a compressible vessel just medial to the right femoral artery. 1% lidocaine was infiltrated directly over this area. An 18 gauge introducer needle was then advanced under ultrasound guidance directly into the lumen of the right femoral vein. Dark nonpulsatile blood was aspirated. A 0.035 in guidewire was advanced through the needle under fluoroscopic guidance. The guidewire advanced smoothly and was visualized advancing up into the inferior vena cava. The needle was withdrawn leaving the guidewire in place. A small idalia incision was made at the insertion site using an 11 blade scalpel. The 8French dilator and sheath were then advanced over the guidewire under fluoroscopic guidance. The sheath was advanced up to the L3 vertebral body, and then once the sheath was at the upper portion of the L3 vertebral body, the dilator and guidewire were removed. The IVC filter was then inserted into the end of the sheath and then the plunger was used to carefully advanced the filter up the length of the sheath. Once the filter was visualized under fluoroscopy at the tip of the sheath, the sheath was slowly withdrawn to allow the filter to deploy. Once the filter was completely expanded, the sheath was removed and pressure was applied at the insertion site. One final fluoroscopic image was obtained visualizing the IVC filter and proper orientation overlying the L3 vertebral body. After holding pressure for 5 minutes, there is no further blood loss and a sterile dressing was applied. [employer] IVC Filter Estimated Blood Loss 2 Complications No immediate complications Condition Stable Disposition Floor [facility] Billing Surgery - Charge Forward: Surgery Billing
--- NOTE | 2022-10-19 10:57 | P.PNIM_ITS ---
Progress Note: A&P Assessment and Plan (1) Right leg DVT: Qualifiers: Affected thrombotic vein of extremity: femoral Chronicity: acute Qualified Code(s): I82.411 - Acute embolism and thrombosis of right femoral vein Code(s): I82.401 - Acute embolism and thrombosis of unspecified deep veins of right lower extremity Status: Acute Assessment and Plan: High unable to be on anticoagulation secondary to pancytopenia, hematuria, anemia. IVC filter put being placed today. Appreciate oncology and surgical consultation. (2) Pancytopenia: Code(s): D61.818 - Other pancytopenia Status: Acute Assessment and Plan: Per Hematology (3) Diabetes mellitus: Code(s): E11.9 - Type 2 diabetes mellitus without complications Status: Acute Assessment and Plan: Accu-Cheks AC and HS with sliding scale Insulin and check A1c. Hypoglycemic protocol. continue with long-acting insulin. (4) Hematuria: Code(s): R31.9 - Hematuria, unspecified Status: Acute Assessment and Plan: Urology has been consulted. The patient has a Nelson catheter draining bloody urine at this time. (5) BPH (benign prostatic hyperplasia): Code(s): N40.0 - Benign prostatic hyperplasia without lower urinary tract symptoms Status: Acute Assessment and Plan: The patient has a Nelson catheter at this time. Urology has been consulted. Continue with Flomax and Proscar (6) Hyperlipidemia: Code(s): E78.5 - Hyperlipidemia, unspecified Status: Acute Assessment and Plan: continue with atorvastatin (7) Hypertension: Code(s): I10 - Essential (primary) hypertension Status: Chronic Assessment and Plan: continue with Coreg (8) Iron deficiency anemia: Code(s): D50.9 - Iron deficiency anemia, unspecified Status: Acute Assessment and Plan: continue to monitor H&H Every 6 hours.. Transfuse as necessary. Type and crossmatch and transfuse as necessary. Subjective Date/time seen: 10/19/22 10:57 Interval history: No new complaints Exam Const: General: cooperative, healthy appearing, comfortable, no acute distress, well developed, awake, Physically active, average body habitus and well nourished Nutritional Appearance: average body habitus and well nourished Orientation/consciousness: oriented to person, oriented to place, oriented to time and patient oriented x3 Limitations: no limitations HENMT: Head: normal to inspection, No palpable skull fracture present, normocephalic and atraumatic Ears: hearing grossly normal bilaterally and external ears normal Face/Nose/Sinus: Normal external nose present and Normal nares present Eyes: General: appearance normal, both eyes and all related structures Alignment and Position: alignment normal Periorbital: periorbital findings normal Eyelids: eyelids normal Sclera: sclerae normal Pupils: Equal, round and reactive pupils present EOM: EOMs intact bilaterally Neck: Neck: normal visual inspection, full ROM, no lymphadenopathy, trachea midline and supple Chest: Chest palpation & inspection: normal inspection of the chest Resp: Effort & Inspection: normal respiratory effort Auscultation: clear to auscultation bilaterally Percussion: percussion normal Cardio: Palpation: normal PMI Rate: regular rate Rhythm: regular rhythm Heart sounds: S1 normal heart sound present and S2 normal heart sound present Peripheral pulses: Peripheral pulses 2+
[2022-10-19 11:54] LABS: Glucose Point of Care 77 mg/dl (65-105)
[2022-10-19] MEDS: FERROUS SULFATE 325 MG TABLET DR BY MOUTH ×2 (12:36→17:53)
[2022-10-19] MEDS: MAGNESIUM OXIDE 400 MG TABLET PO (12:37)
[2022-10-19] MEDS: allopurinoL 100 MG TABLET PO (12:37)
[2022-10-19] MEDS: buPROPion HCL XL (24 HR) 150 MG TABCR PO (12:37)
[2022-10-19] MEDS: EMPAGLIFLOZIN 10 MG TABLET PO (12:37)
[2022-10-19] MEDS: PANTOPRAZOLE 40 MG TABLET PO (12:37)
[2022-10-19] MEDS: FOLIC ACID 1 MG TABLET PO (12:38)
[2022-10-19] MEDS: ATORVASTATIN 20 MG TABLET PO (12:39)
--- NOTE | 2022-10-19 14:28 | PC.NURSE ---
On 10/19/22, the Licence pending nurse, Jillian Mullins, provided care and completed [facility] documentation on this patient. I have reviewed the Licence pending nurse's documentation and agree with the findings.
[2022-10-19 16:50] LABS: Glucose Point of Care 128 mg/dl (65-105)
[2022-10-19] MEDS: carvediloL 1.56 MG TABLET PO (21:43)
[2022-10-19 21:48] LABS: Glucose Point of Care 101 mg/dl (65-105)
[2022-10-20 05:53] LABS: Hematocrit 24.5 % (42.0-52.0); Hemoglobin 7.7 g/dL (14.0-18.0); Immature Platelet Fraction Pct 3.4 % (0.9-11.2); Mean Corpuscular HGB Conc 31.4 g/dl (32-36); Mean Corpuscular Hemoglobin 32.6 pg (26-34); Mean Corpuscular Volume 103.8 fl (80-100); Mean Platelet Volume 10.7 fl (7.4-10.4); Platelet Count Result 41 k/mm3 (150-375); Red Blood Count 2.36 M/mm3 (4.6-6.20); Red Cell Distribution Width 16.7 % (11.5-14.5); White Blood Count 2.3 K/mm3 (4.5-10.0)
[2022-10-20 06:44] VITALS: BP 109/59; PULSE 68; RESP 21; TEMP 36.1; O2SAT 100
[2022-10-20 08:47] LABS: Glucose Point of Care 108 mg/dl (65-105)
[2022-10-20 09:19] VITALS: BP 108/56; PULSE 73; RESP 16; O2SAT 100
[2022-10-20] MEDS: allopurinoL 100 MG TABLET PO (09:22)
[2022-10-20] MEDS: ATORVASTATIN 20 MG TABLET PO (09:22)
[2022-10-20 09:23] VITALS: PULSE 68
[2022-10-20] MEDS: buPROPion HCL XL (24 HR) 150 MG TABCR PO (09:23)
[2022-10-20] MEDS: MAGNESIUM OXIDE 400 MG TABLET PO (09:23)
[2022-10-20] MEDS: FINASTERIDE 5 MG TABLET PO (09:23)
[2022-10-20] MEDS: FOLIC ACID 1 MG TABLET PO (09:23)
[2022-10-20] MEDS: FERROUS SULFATE 325 MG TABLET DR BY MOUTH ×2 (09:23→17:55)
[2022-10-20] MEDS: carvediloL 1.56 MG TABLET PO ×2 (09:23→21:02)
[2022-10-20] MEDS: PANTOPRAZOLE 40 MG TABLET PO (09:23)
[2022-10-20] MEDS: TAMSULOSIN HCL 0.4 MG CAPSULE 0.8 MG PO (09:23)
[2022-10-20] MEDS: EMPAGLIFLOZIN 10 MG TABLET PO (09:23)
[2022-10-20] MEDS: INSULIN GLARGINE (*BKC) 100 UNITS/ML 15 UNITS SUB-Q (09:24)
--- NOTE | 2022-10-20 10:07 | WPDUROPN2 ---
Progress Note: A&P Assessment and Plan (1) Retention of urine: Code(s): R33.9 - Retention of urine, unspecified Status: Acute Assessment and Plan: Continue monthly catheter changes as planned. (2) Hematuria: Qualifiers: Hematuria type: gross Qualified Code(s): R31.0 - Gross hematuria Code(s): R31.9 - Hematuria, unspecified Status: Acute Assessment and Plan: Resolved at this time, patient unable to use anticoagulants. IVC filter is placed. Will only plan to cystoscope if blood returns to urine and CBI is needed. Otherwise outpatient PAE would be recommended if he is able to do so at some point. Subjective Subjective Date/Time Seen: 10/20/22 10:07 Interval history: Patient continues to have yellow, cloudy urine but is flowing to gravity. He failed a voiding trial during his last hospitalization. He has not required CBI since his last hospital visit, but has been getting daily irrigations. CT on 09/28/22 shows no urological abnormalities. Urine Culture on 10/03/22 grew VRE. Patient was started on Amicar by Dr. Luther to improve urinary bleeding, cystoscopy was then held off. He feels well otherwise. IVC Filter placed yesterday by general surgery. Review of Systems Cardiovascular: Cardiovascular: Denies chest pain Respiratory: Respiratory: Reports no additional respiratory complaints Gastrointestinal: Gastrointestinal: Denies abdominal pain, Denies nausea and Denies vomiting Genitourinary: Genitourinary: Denies hematuria and Reports urinary hesitancy Exam Const: General: cooperative and comfortable Resp: Effort & Inspection: normal respiratory effort Cardio: Rate: regular rate GI: GI Palp: Yes Soft to palpation and No Tenderness to palpation present (GI) : General: Yes no CVA tenderness Urinary Catheter: Urinary Catheter: patent and draining and urine cloudy Extrem: Right lower extremity: no edema Left lower extremity: no edema Objective Data Vital Signs Vital Signs: Vital Signs - 24 hr 10/19/22 10:15 10/19/22 10:45 10/19/22 11:15 Temperature Pulse Rate 76 76 74 Respiratory Rate 14 15 17 Blood Pressure 114/63 111/59 L 117/62 Pulse Oximetry 100 100 100 Oxygen Delivery Room Air Room Air Room Air 10/19/22 10:30 10/19/22 11:00 10/19/22 11:30 Temperature 97.4 F L Pulse Rate 75 73 74 Respiratory Rate 16 16 18 Blood Pressure 107/64 109/69 107/59 L Pulse Oximetry 100 100 99 Oxygen Delivery Room Air Room Air 10/19/22 11:45 10/19/22 12:24 10/19/22 13:15 Temperature 97.4 F L 97.3 F L 97.5 F L Pulse Rate 73 76 76 Respiratory Rate 18 18 18 Blood Pressure 103/58 L 90/60 L 103/58 L Pulse Oximetry 100 100 100 Oxygen Delivery 10/19/22 17:29 10/19/22 21:43 10/19/22 22:59 Temperature 98.0 F 97.5 F L Pulse Rate 78 75 75 Respiratory Rate 16 21 H Blood Pressure 116/65 111/63 Pulse Oximetry 98 100 Oxygen Delivery 10/19/22 21:35 10/20/22 06:44 10/20/22 09:19 Temperature 97.0 F L Pulse Rate 68 73 Respiratory Rate 21 H 16 Blood Pressure 109/59 L 108/56 L Pulse Oximetry 100 100 Oxygen Delivery Room Air 10/20/22 09:23 Temperature Pulse Rate 68 Respiratory Rate Blood Pressure Pulse Oximetry Oxygen Delivery Intake/Output Intake/Output: Intake & Output 10/17/22 10/18/22 10/19/22 10/20/22 23:59 23:59 23:59 23:59 Intake Total 1090 520 880 Output Total 1200 1350 600 Balance -110 -830 280 Meds/Results Medications: Active Medications Generic Name Dose Route Start Last Admin Trade Name Chelsey PRN Reason Stop Dose Admin Allopurinol 100 mg 10/18/22 08:00 10/20/22 09:22 Allopurinol 100 Mg Tablet PO 100 mg DAILY@0800 OSIEL Administration Atorvastatin Calcium 20 mg 10/18/22 09:00 10/20/22 09:22 Atorvastatin 20 Mg Tablet PO 20 mg DAILY OSIEL Administration Bupropion HCl 150 mg 10/18/22 12:45 10/20/22 09:23 Bupropion Hcl Xl (24 Hr) 150 Mg Tabcr PO 150 mg QAM S
--- NOTE | 2022-10-20 11:14 | PM.IMPN ---
Progress Note: A&P Assessment and Plan (1) Right leg DVT: Qualifiers: Affected thrombotic vein of extremity: femoral Chronicity: acute Qualified Code(s): I82.411 - Acute embolism and thrombosis of right femoral vein Code(s): I82.401 - Acute embolism and thrombosis of unspecified deep veins of right lower extremity Status: Acute Assessment and Plan: High unable to be on anticoagulation secondary to pancytopenia, hematuria, anemia. IVC filter put being placed today. Appreciate oncology and surgical consultation. (2) Pancytopenia: Code(s): D61.818 - Other pancytopenia Status: Acute Assessment and Plan: Per Hematology (3) Diabetes mellitus: Code(s): E11.9 - Type 2 diabetes mellitus without complications Status: Acute Assessment and Plan: Accu-Cheks AC and HS with sliding scale Insulin and check A1c. Hypoglycemic protocol. continue with long-acting insulin. (4) Hematuria: Code(s): R31.9 - Hematuria, unspecified Status: Acute Assessment and Plan: Urology has been consulted. The patient has a Nelson catheter draining bloody urine at this time. (5) BPH (benign prostatic hyperplasia): Code(s): N40.0 - Benign prostatic hyperplasia without lower urinary tract symptoms Status: Acute Assessment and Plan: The patient has a Nelson catheter at this time. Urology has been consulted. Continue with Flomax and Proscar (6) Hyperlipidemia: Code(s): E78.5 - Hyperlipidemia, unspecified Status: Acute Assessment and Plan: continue with atorvastatin (7) Hypertension: Code(s): I10 - Essential (primary) hypertension Status: Chronic Assessment and Plan: continue with Coreg (8) Iron deficiency anemia: Code(s): D50.9 - Iron deficiency anemia, unspecified Status: Acute Assessment and Plan: continue to monitor H&H Every 6 hours.. Transfuse as necessary. Type and crossmatch and transfuse as necessary. Subjective Date/time seen: 10/20/22 11:14 Interval history: Bleeding at the groin was noted overnight. This has stopped. No new complaints Exam Const: General: cooperative, healthy appearing, comfortable, no acute distress, well developed, awake, Physically active, average body habitus and well nourished Nutritional Appearance: average body habitus and well nourished Orientation/consciousness: oriented to person, oriented to place, oriented to time and patient oriented x3 Limitations: no limitations HENMT: Head: normal to inspection, No palpable skull fracture present, normocephalic and atraumatic Ears: hearing grossly normal bilaterally and external ears normal Face/Nose/Sinus: Normal external nose present and Normal nares present Eyes: General: appearance normal, both eyes and all related structures Alignment and Position: alignment normal Periorbital: periorbital findings normal Eyelids: eyelids normal Sclera: sclerae normal Pupils: Equal, round and reactive pupils present EOM: EOMs intact bilaterally Neck: Neck: normal visual inspection, full ROM, no lymphadenopathy, trachea midline and supple Chest: Chest palpation & inspection: normal inspection of the chest Resp: Effort & Inspection: normal respiratory effort Auscultation: clear to auscultation bilaterally Percussion: percussion normal Cardio: Palpation: normal PMI Rate: regular rate Rhythm: regular rhythm Heart sounds: S1 normal heart sound present and S2 normal heart sound present Peripheral pulses: Peripheral pulses 2+ throughout GI: Inspection: normal to inspection Auscultation: normal bowel sounds Rectal Exam: deferred Back/Spine/Pelvis: Cervical Spine: cervical ROM normal Skin: General skin exam: normal color Lesions: no lesions Rashes: no rashes Trauma: no lacerations or abrasions Wounds: no wounds Hair: male pattern alopecia Nails: normal Neuro: General: oriented to person, aimee
[2022-10-20 12:03] LABS: Glucose Point of Care 169 mg/dl (65-105)
[2022-10-20 15:05] VITALS: BP 116/61; PULSE 73; RESP 18; TEMP 36.3; O2SAT 100
[2022-10-20 17:12] LABS: Glucose Point of Care 135 mg/dl (65-105)
[2022-10-20] MEDS: CALCIUM CARBONATE (TUMS) 500 MG (200 MG ELEMENTAL) PO (17:58)
[2022-10-20 19:44] VITALS: BP 127/67; PULSE 73; RESP 14; TEMP 36.6; O2SAT 99
[2022-10-20 21:02] VITALS: PULSE 73
[2022-10-20 21:35] LABS: Glucose Point of Care 113 mg/dl (65-105)
[2022-10-21 04:54] VITALS: BP 114/65; PULSE 79; RESP 16; TEMP 36.6; O2SAT 99
[2022-10-21 06:08] LABS: Hematocrit 24.5 % (42.0-52.0); Hemoglobin 7.8 g/dL (14.0-18.0); Immature Platelet Fraction Pct 2.3 % (0.9-11.2); Mean Corpuscular HGB Conc 31.8 g/dl (32-36); Mean Corpuscular Hemoglobin 32.2 pg (26-34); Mean Corpuscular Volume 101.2 fl (80-100); Mean Platelet Volume 10.6 fl (7.4-10.4); Platelet Count Result 62 k/mm3 (150-375); Red Blood Count 2.42 M/mm3 (4.6-6.20); Red Cell Distribution Width 16.6 % (11.5-14.5); White Blood Count 3.3 K/mm3 (4.5-10.0)
[2022-10-21 06:20] LABS: Alanine Aminotransferase 19 U/L (6-50); Albumin Level 2.2 g/dL (3.5-5.1); Alkaline Phosphatase 169 U/L (38-126); Anion Gap 1 mmol/L (8-16); Aspartate Amino Transferase 26 U/L (17-59); Bilirubin,Total 0.6 mg/dL (0.2-1.3); Blood Urea Nitrogen 36 mg/dL (9-20); Calcium 7.9 mg/dL (8.4-10.2); Carbon Dioxide 22 mmol/L (22-30); Chloride 107 mmol/L (98-107); Estimated CRCL calculation 20 ml/min; Estimated Glomerular Filt Rate 27; Glucose 102 mg/dL (65-110); Potassium 4.3 mmol/L (3.4-5.0); Sodium 130 mmol/L (137-145)
[2022-10-21 08:21] LABS: Glucose Point of Care 99 mg/dl (65-105)
[2022-10-21 10:12] VITALS: BP 100/56; PULSE 76; RESP 16; O2SAT 100
[2022-10-21 10:13] VITALS: PULSE 70
[2022-10-21] MEDS: buPROPion HCL XL (24 HR) 150 MG TABCR PO (10:13)
[2022-10-21] MEDS: ATORVASTATIN 20 MG TABLET PO (10:13)
[2022-10-21] MEDS: carvediloL 1.56 MG TABLET PO (10:13)
[2022-10-21] MEDS: allopurinoL 100 MG TABLET PO (10:13)
[2022-10-21] MEDS: PANTOPRAZOLE 40 MG TABLET PO (10:14)
[2022-10-21] MEDS: MAGNESIUM OXIDE 400 MG TABLET PO (10:14)
[2022-10-21] MEDS: FINASTERIDE 5 MG TABLET PO (10:14)
[2022-10-21] MEDS: TAMSULOSIN HCL 0.4 MG CAPSULE 0.8 MG PO (10:14)
[2022-10-21] MEDS: EMPAGLIFLOZIN 10 MG TABLET PO (10:14)
[2022-10-21] MEDS: FERROUS SULFATE 325 MG TABLET DR BY MOUTH ×2 (10:14→17:17)
[2022-10-21] MEDS: FOLIC ACID 1 MG TABLET PO (10:14)
[2022-10-21 12:03] LABS: Glucose Point of Care 129 mg/dl (65-105)
[2022-10-21 13:17] VITALS: BP 102/51; PULSE 76; RESP 18; TEMP 36.8; O2SAT 100
[2022-10-21 17:22] LABS: Glucose Point of Care 117 mg/dl (65-105)
[2022-10-24 14:40] LABS: Heparin Induced Platelet Antib Weak Positive (Negative)
--- NOTE | 2022-11-15 10:48 | PM.DS ---
DS: Admitting Diagnosis Discharge Date 10/21/22 Admitting Diagnosis DVT DS: Discharge Diagnosis Discharge Diagnosis (1) Right leg DVT: Qualifiers: Affected thrombotic vein of extremity: femoral Chronicity: acute Qualified Code(s): I82.411 - Acute embolism and thrombosis of right femoral vein Code(s): I82.401 - Acute embolism and thrombosis of unspecified deep veins of right lower extremity Status: Acute Assessment and Plan: High unable to be on anticoagulation secondary to pancytopenia, hematuria, anemia. IVC filter put being placed today. Appreciate oncology and surgical consultation. (2) Pancytopenia: Code(s): D61.818 - Other pancytopenia Status: Acute Assessment and Plan: Per Hematology (3) Diabetes mellitus: Code(s): E11.9 - Type 2 diabetes mellitus without complications Status: Acute Assessment and Plan: Accu-Cheks AC and HS with sliding scale Insulin and check A1c. Hypoglycemic protocol. continue with long-acting insulin. (4) Hematuria: Code(s): R31.9 - Hematuria, unspecified Status: Deleted Assessment and Plan: Urology has been consulted. The patient has a Nelson catheter draining bloody urine at this time. (5) BPH (benign prostatic hyperplasia): Code(s): N40.0 - Benign prostatic hyperplasia without lower urinary tract symptoms Status: Acute Assessment and Plan: The patient has a Nelson catheter at this time. Urology has been consulted. Continue with Flomax and Proscar (6) Hyperlipidemia: Code(s): E78.5 - Hyperlipidemia, unspecified Status: Acute Assessment and Plan: continue with atorvastatin (7) Hypertension: Code(s): I10 - Essential (primary) hypertension Status: Chronic Assessment and Plan: continue with Coreg (8) Iron deficiency anemia: Code(s): D50.9 - Iron deficiency anemia, unspecified Status: Acute Assessment and Plan: continue to monitor H&H Every 6 hours.. Transfuse as necessary. Type and crossmatch and transfuse as necessary. DS: Summary Hospital Course Hospital Course: Admitted for DVT - hx of pancytopenia - surgical consult for IVC filter which was placed. Doing well post op. He will need to follow up with surgery and hematology Time Spent with Patient Time attestation: Total time spent providing and/or coordinating discharge services: Exam Const: General: cooperative, healthy appearing, comfortable, no acute distress, well developed, awake, Physically active, average body habitus and well nourished Nutritional Appearance: average body habitus and well nourished Orientation/consciousness: oriented to person, oriented to place, oriented to time and patient oriented x3 Limitations: no limitations HENMT: Head: normal to inspection, No palpable skull fracture present, normocephalic and atraumatic Ears: hearing grossly normal bilaterally and external ears normal Face/Nose/Sinus: Normal external nose present and Normal nares present Eyes: General: appearance normal, both eyes and all related structures Alignment and Position: alignment normal Periorbital: periorbital findings normal Eyelids: eyelids normal Sclera: sclerae normal Pupils: Equal, round and reactive pupils present EOM: EOMs intact bilaterally Neck: Neck: normal visual inspection, full ROM, no lymphadenopathy, trachea midline and supple Chest: Chest palpation & inspection: normal inspection of the chest Resp: Effort & Inspection: normal respiratory effort Auscultation: clear to auscultation bilaterally Percussion: percussion normal Cardio: Palpation: normal PMI Rate: regular rate Rhythm: regular rhythm Heart sounds: S1 normal heart sound present and S2 normal heart sound present Peripheral pulses: Peripheral pulses 2+ throughout GI: Inspection: normal to inspection Auscultation: normal bowel sounds Rectal Exam: deferred Back/Spine/Pel
== END 2022-10-21 17:29 | disposition swing bed (61) | DRG 300 ==
PROVIDERS: Nurse Practitioner; Surgery; Admitting Provider Internal Medicine; PCP Internal Medicine; Visit Provider Chiropractor
PROC: 06H03DZ Insertion of Intraluminal Device into Inferior Vena Cava, Percutaneous Approach (ICD-10-PCS; principal; 2022-10-19 09:30)
DX: I82.411 Acute embolism and thrombosis of right femoral vein (principal); D61.818 Other pancytopenia; N40.0 Benign prostatic hyperplasia without lower urinary tract symptoms; R31.0 Gross hematuria; R33.9 Retention of urine, unspecified; D50.9 Iron deficiency anemia, unspecified; D63.8 Anemia in other chronic diseases classified elsewhere; R82.81 Pyuria; E78.5 Hyperlipidemia, unspecified; I25.10 Atherosclerotic heart disease of native coronary artery without angina pectoris; K74.60 Unspecified cirrhosis of liver; I10 Essential (primary) hypertension; Z95.5 Presence of coronary angioplasty implant and graft; Z90.49 Acquired absence of other specified parts of digestive tract
CPT/HCPCS: 36415; 37191; 80048; 80053; 82948; 83036; 83690; 83735; 84443; 85014; 85018; 85025; 85027; 85055; 86022; 86023; 86850; 86900; 86901; 88184; 88185; 97161; 97165; 97535; A9270; C1880; J1815; J2250; J3010; J7040

== ENCOUNTER 2022-10-21 18:05 | Inpatient (IN) | payer MEDICARE, SELFPAY ==
--- NOTE | 2022-10-21 18:10 | ADMGEN ---
This patient, Jaspal Ruggiero, was admitted to 2nd Floor Room 208-2. Patient/family oriented to hospital policies and general routines including ID bracelet, bed and alarms, visiting hours, pain management, procedures, bathroom and other care routines, personal items, smoking policy, room service/diet, and visiting hours. Information on how to activate the Rapid Response Team has been discussed. Patient/Family are encouraged to report perceived risks to care and to ask questions if they do not understand what they are told or what they should do.
[2022-10-21 18:45] VITALS: BMI 26.5
[2022-10-21 18:47] VITALS: BMI 26.5
[2022-10-21 21:42] LABS: Glucose Point of Care 159 mg/dl (65-105)
[2022-10-21 22:04] VITALS: PULSE 78
[2022-10-21] MEDS: carvediloL 1.56 MG TABLET PO (22:04)
[2022-10-22] VITALS: BP 105/61; PULSE 72; RESP 16; TEMP 36.4; O2SAT 98
[2022-10-22 07:59] LABS: Glucose Point of Care 120 mg/dl (65-105)
[2022-10-22 08:00] VITALS: BP 98/64; PULSE 82; RESP 17; TEMP 36.3; O2SAT 95
[2022-10-22] MEDS: INSULIN GLARGINE (*BKC) 1,000 UNITS/10 ML VIAL 15 UNITS SUB-Q (09:55)
[2022-10-22] MEDS: allopurinoL 100 MG TABLET PO (09:56)
[2022-10-22] MEDS: FERROUS SULFATE 325 MG TABLET DR BY MOUTH ×2 (09:57→17:20)
[2022-10-22] MEDS: FINASTERIDE 5 MG TABLET PO (09:57)
[2022-10-22] MEDS: FOLIC ACID 1 MG TABLET PO (09:57)
[2022-10-22] MEDS: ASPIRIN 81 MG ENTERIC TABLET PO (09:57)
[2022-10-22] MEDS: TAMSULOSIN HCL 0.4 MG CAPSULE 0.8 MG PO (09:57)
[2022-10-22] MEDS: ATORVASTATIN 10 MG TABLET 20 MG PO (09:57)
[2022-10-22] MEDS: MAGNESIUM OXIDE 400 MG TABLET PO (09:58)
[2022-10-22] MEDS: PANTOPRAZOLE 40 MG TABLET PO (09:58)
[2022-10-22 09:59] VITALS: PULSE 82
[2022-10-22] MEDS: buPROPion HCL XL (24 HR) 150 MG TABCR PO (09:59)
[2022-10-22] MEDS: carvediloL 3.125 MG TABLET (09:59)
[2022-10-22] MEDS: EMPAGLIFLOZIN 10 MG TABLET PO (10:08)
--- NOTE | 2022-10-22 10:22 | PM.IMHP ---
H&P: HPI History of Present Illness Date/Time: 10/22/22 10:22 Chief Complaint: Weakness Narrative: Mr. Ruggiero is an 87-year-old gentleman who was transferred to this facility for swing bed and rehab. Patient has been hospitalized multiple times for rehab, but unfortunately he has to be transferred back to [facility] for acute issues. Most recently patient was diagnosed with a DVT of the right lower extremity and had been placed on Lovenox and Coumadin and then had a significant pancytopenia that was much worse than had previously been. Patient then had to be transferred to a higher level of care to have an IVC filter placed and for Hematology to evaluate patient again. Patient underwent IVC filter placement without difficulty, and had a flow cytometry for PNH, and a HIT panel performed. At this time the flow cytometry and HIT panel are pending. Hematology did see patient 1 time bearing stay at [facility], but unfortunately there are no current recommendations regarding any follow-up or any further treatments at this time. Will await flow cytometry and HIT panel results. At this time patient states he is feeling weak, but denies any chest pain, shortness of breath, lightheadedness, dizziness, generalized pain, abdominal pain, nausea, vomiting, constipation, or diarrhea. Patient states he occasionally will have pain at his Nelson catheter site, but after he had just the area he feels much improved. At this point time patient states his only real complaint is he is very tired today and hopes to sleep a bit. Patient has been hospitalized multiple times recently for gross hematuria and urinary retention and subsequently had to have a Nelson catheter placed. Patient also was noted to have urinary tract infection and has been placed on antibiotics multiple times, and culture has shown no growth most recently. As stated above patient recently had a significant drop in all of his blood counts and hematology ordered laboratories which were still pending. Patient has had some improvement in his blood counts. Hematology had stated they were unsure if he was having bone marrow failure verses PNH verses HIT. Prior to transfer to a higher level of care so Hematology could evaluate patient and an IVC filter could be placed patient's significant pancytopenia showed a white blood cell count of 1.9, a hemoglobin of 7.4, hematocrit of 23.3, and a platelet count of 28. Patient has a known history of thrombocytopenia secondary to cirrhosis, but platelet level typically is in the 60s. Review of Systems Review of Systems: A 12 point review of systems was completed with patient all pertinent positive and negative per HPI the remainder are unremarkable. [facility] Past Medical History Medical History (Updated 10/22/22 @ 11:04 by Marie Moore APRN) Acute on chronic anemia Acute UTI (urinary tract infection) BPH (benign prostatic hyperplasia) CAD (coronary artery disease) Chronic kidney disease Dehydration, mild Gout History of colon polyps History of kidney stones Hyperglycemia due to diabetes mellitus Hyperlipidemia Hypertension Melena Pancytopenia Pneumonia Right leg DVT Viral syndrome Surgical History Surgical History H/O colonoscopy with polypectomy H/O hernia repair H/O removal of cyst On his chest History of back surgery History of cardiac catheterization Hx of cholecystectomy Stented coronary artery 2015, and 2018 Family History Family History Father Diabetes mellitus Heart disease Acute myocardial infarction Sibling Diabetes mellitus Social History Social History Social History: The patient lives with his and has 2 Children. Patient is retired from [employer]. The patient stated he used to drink heavily but does not drink anymore. His i
[2022-10-22 11:06] LABS: Hematocrit 23.3 % (37.0-46.0); Hemoglobin 7.5 g/dL (12.4-15.3); Immature Platelet Fraction Pct 2.1 % (1.0-7.0); Mean Corpuscular HGB Conc 32.2 g/dL (32.0-36.0); Mean Corpuscular Hemoglobin 32.5 pg (27.0-31.0); Mean Corpuscular Volume 100.9 fL (78.0-102.0); Mean Platelet Volume 10.7 fl (8.7-11.0); Platelet Count Result 66 K/mm3 (150-420); Red Blood Count 2.31 M/mm3 (4.70-6.10); Red Cell Distribution Width 16.9 % (11.6-14.4); White Blood Count 3.8 K/mm3 (4.8-10.8)
[2022-10-22 11:17] LABS: Chloride 107 mmol/L (98-108); Potassium 4.7 mmol/L (3.5-5.1); Sodium 137 mmol/L (136-145)
[2022-10-22 11:18] LABS: Alanine Aminotransferase 12 U/L (16-63); Albumin Level 1.6 g/dL (3.4-5.0); Alkaline Phosphatase 175 U/L (46-116); Anion Gap 6 mmol/L (8-16); Aspartate Amino Transferase 20 U/L (15-37); Bilirubin,Total 0.5 mg/dL (0.00-1.00); Blood Urea Nitrogen 40 mg/dL (7-18); Calcium 7.9 mg/dL (8.5-10.1); Carbon Dioxide 24 mmol/L (21-32); Estimated CRCL calculation 17 ml/min; Estimated Glomerular Filt Rate 24; Glucose 210 mg/dL (70-99); Osmolality Calculated 299 mOsm/kg (285-295); Total Protein 5.5 g/dL (6.4-8.2)
[2022-10-22 11:34] LABS: Band Neutrophils Percent 0 % (0-6); Basophils Absolute Manual 0.07 K/mm3 (0-0.1); Basophils Percent Manual 2 % (0-1); Eosinophils Absolute Manual 0.07 K/mm3 (0.02-0.5); Eosinophils Percent Manual 2 % (1-6); Lymphocytes Absolute Manual 1.67 K/mm3 (1.1-4.5); Lymphocytes Percent Manual 44 % (18-44); Monocytes Absolute Manual 0.07 K/mm3 (0.1-0.90); Monocytes Percent Manual 2 % (3-9); Neutrophils Percent Manual 50 % (46-73); Platelet Estimate Decreased (Adequate); Schistocytes None Seen (NORMAL); Total Cells Counted 100
[2022-10-22 11:35] LABS: Atypical Lymphocytes Present
--- NOTE | 2022-10-22 11:50 | PC.NURSE ---
Pt called out with complaints of pressure in his bladder and urge to urinate. This nurse noted, urine leaking around the catheter and a thick brown urine in catheter tubing. Catheter irrigated per CONDITIONER TUMBLER. Irrigation resulted in several clots and approximately 600 ml of thick brown urine in addition to irrigant amount. Marie Abdalla np notified. Received order to irrigate catheter every shift and prn, send urine for culture, and to hold iv fluids until BMP is completed in the AM. This nurse also removed stat lock from patients leg as it looked to be blocking some flow of the tubing d/t the thick urine.
[2022-10-22 12:14] LABS: Glucose Point of Care 208 mg/dl (65-105)
[2022-10-22 16:00] VITALS: BP 105/64; PULSE 77; RESP 17; TEMP 36.4; O2SAT 99
[2022-10-22 17:01] LABS: Glucose Point of Care 159 mg/dl (65-105)
[2022-10-22 20:23] VITALS: PULSE 76
[2022-10-22] MEDS: carvediloL 1.56 MG TABLET PO (20:23)
--- NOTE | 2022-10-22 20:30 | PC.NURSE ---
Catheter draining thick cloudy yellow urine. Catheter irrigated. Urine flowing better after irrigation. Patient tolerated well.
[2022-10-22 20:42] LABS: Glucose Point of Care 171 mg/dl (65-105)
[2022-10-22 23:52] VITALS: BP 107/56; PULSE 72; RESP 16; TEMP 36.7; O2SAT 97
[2022-10-23 05:17] LABS: Hematocrit 22.1 % (37.0-46.0); Immature Platelet Fraction Pct 1.6 % (1.0-7.0); Mean Corpuscular HGB Conc 31.7 g/dL (32.0-36.0); Mean Corpuscular Volume 100.9 fL (78.0-102.0); Mean Platelet Volume 10.6 fl (8.7-11.0); Platelet Count Result 70 K/mm3 (150-420); Red Blood Count 2.19 M/mm3 (4.70-6.10); White Blood Count 3.1 K/mm3 (4.8-10.8)
--- NOTE | 2022-10-23 05:33 | PC.NURSE ---
Lab called to report hemoglobin of 7.0.
[2022-10-23 05:36] LABS: Anion Gap 5 mmol/L (8-16); Blood Urea Nitrogen 40 mg/dL (7-18); Calcium 7.7 mg/dL (8.5-10.1); Carbon Dioxide 27 mmol/L (21-32); Chloride 109 mmol/L (98-108); Estimated CRCL calculation 19 ml/min; Estimated Glomerular Filt Rate 26; Glucose 98 mg/dL (70-99); Osmolality Calculated 301 mOsm/kg (285-295); Potassium 4.2 mmol/L (3.5-5.1); Sodium 141 mmol/L (136-145)
[2022-10-23 07:21] LABS: Glucose Point of Care 93 mg/dl (65-105)
[2022-10-23 07:45] VITALS: BP 99/60; PULSE 66; RESP 16; TEMP 35.7; O2SAT 98
[2022-10-23] MEDS: INSULIN GLARGINE (*BKC) 1,000 UNITS/10 ML VIAL 15 UNITS SUB-Q (08:09)
[2022-10-23] MEDS: buPROPion HCL XL (24 HR) 150 MG TABCR PO (08:09)
[2022-10-23] MEDS: PANTOPRAZOLE 40 MG TABLET PO (08:10)
[2022-10-23] MEDS: TAMSULOSIN HCL 0.4 MG CAPSULE 0.8 MG PO (08:10)
[2022-10-23] MEDS: EMPAGLIFLOZIN 10 MG TABLET PO (08:10)
[2022-10-23] MEDS: ASPIRIN 81 MG ENTERIC TABLET PO (08:10)
[2022-10-23] MEDS: FERROUS SULFATE 325 MG TABLET DR BY MOUTH ×2 (08:11→16:55)
[2022-10-23] MEDS: MAGNESIUM OXIDE 400 MG TABLET PO (08:11)
[2022-10-23] MEDS: FOLIC ACID 1 MG TABLET PO (08:11)
[2022-10-23] MEDS: ATORVASTATIN 10 MG TABLET 20 MG PO (08:11)
[2022-10-23] MEDS: allopurinoL 100 MG TABLET PO (08:11)
[2022-10-23] MEDS: FINASTERIDE 5 MG TABLET PO (08:12)
[2022-10-23 08:26] VITALS: PULSE 66
[2022-10-23] MEDS: carvediloL 1.56 MG TABLET PO ×2 (08:26→20:08)
--- NOTE | 2022-10-23 10:10 | PC.NURSE ---
Patient c/o dizziness. Two nurses assisted patient back to bed. COMPLEX CARE NURSE aware of dizziness.
--- NOTE | 2022-10-23 10:20 | PC.NURSE ---
BP 100/58 and glucose 198 at this time.
[2022-10-23 10:26] LABS: Glucose Point of Care 198 mg/dl (65-105)
[2022-10-23 11:33] LABS: Glucose Point of Care 178 mg/dl (65-105)
--- NOTE | 2022-10-23 15:03 | PC.NURSE ---
Catheter flushed with 60ml sterile water. 350 ml cloudy urine output prior to flush.
[2022-10-23 16:00] VITALS: BP 114/66; PULSE 68; RESP 16; TEMP 35.7; O2SAT 100
[2022-10-23 16:25] LABS: Glucose Point of Care 129 mg/dl (65-105)
[2022-10-23 20:08] VITALS: PULSE 84
[2022-10-23 23:41] VITALS: BP 107/61; PULSE 74; RESP 16; TEMP 36.4; O2SAT 99
[2022-10-24 03:43] LABS: Glucose Point of Care 173 mg/dl (65-105)
[2022-10-24 07:29] LABS: Glucose Point of Care 104 mg/dl (65-105)
[2022-10-24 08:00] VITALS: BP 116/66; PULSE 72; RESP 16; TEMP 35.8; O2SAT 100
[2022-10-24] MEDS: INSULIN GLARGINE (*BKC) 1,000 UNITS/10 ML VIAL 15 UNITS SUB-Q (08:25)
[2022-10-24 08:27] VITALS: PULSE 72
[2022-10-24] MEDS: TAMSULOSIN HCL 0.4 MG CAPSULE 0.8 MG PO (08:27)
[2022-10-24] MEDS: carvediloL 1.56 MG TABLET PO ×2 (08:27→20:48)
[2022-10-24] MEDS: MAGNESIUM OXIDE 400 MG TABLET PO (08:27)
[2022-10-24] MEDS: ASPIRIN 81 MG ENTERIC TABLET PO (08:28)
[2022-10-24] MEDS: ATORVASTATIN 10 MG TABLET 20 MG PO (08:28)
[2022-10-24] MEDS: FINASTERIDE 5 MG TABLET PO (08:28)
[2022-10-24] MEDS: allopurinoL 100 MG TABLET PO (08:28)
[2022-10-24] MEDS: buPROPion HCL XL (24 HR) 150 MG TABCR PO (08:29)
[2022-10-24] MEDS: FERROUS SULFATE 325 MG TABLET DR BY MOUTH ×2 (08:29→17:03)
[2022-10-24] MEDS: EMPAGLIFLOZIN 10 MG TABLET PO (08:29)
[2022-10-24] MEDS: FOLIC ACID 1 MG TABLET PO (08:29)
[2022-10-24] MEDS: PANTOPRAZOLE 40 MG TABLET PO (08:29)
--- NOTE | 2022-10-24 09:57 | PC.NURSE ---
SHOE SEWING MACHINE OPERATOR AND TENDER made aware that patient flagged for sepsis in screening. SHOE SEWING MACHINE OPERATOR AND TENDER also made aware that patient c/o ringing in ears. Awaiting instructions and orders.
--- NOTE | 2022-10-24 10:01 | PC.NURSE ---
N/O start rocephin 2 gm IV. Check H&H.
--- NOTE | 2022-10-24 10:31 | WPDPN ---
Progress Note: A&P Assessment and Plan (1) Right leg DVT: Qualifiers: Affected thrombotic vein of extremity: femoral Chronicity: acute Qualified Code(s): I82.411 - Acute embolism and thrombosis of right femoral vein Code(s): I82.401 - Acute embolism and thrombosis of unspecified deep veins of right lower extremity Status: Acute Assessment and Plan: IVC filter in place (2) Retention of urine: Code(s): R33.9 - Retention of urine, unspecified Status: Acute Assessment and Plan: soler catheter in place cloudy brown urine in place patient urine growing gram negativ rods which is new for patient spoke with ID Pharmacist and Mary Pharmacist we will start Rocephine 2mg daily IV (3) Hematuria: Qualifiers: Hematuria type: gross Qualified Code(s): R31.0 - Gross hematuria Code(s): R31.9 - Hematuria, unspecified Status: Acute Assessment and Plan: anemia Rcv blood today 2 units will recheck HH in am (4) Pancytopenia: Code(s): D61.818 - Other pancytopenia Status: Acute Assessment and Plan: in need of Bone Marrow oncology states it will be outpatient when he is more stable (5) Generalized weakness: Code(s): R53.1 - Weakness Status: Acute Assessment and Plan: PT?OT (6) Diabetes mellitus: Code(s): E11.9 - Type 2 diabetes mellitus without complications Status: Acute (7) Chronic kidney disease: Code(s): N18.9 - Chronic kidney disease, unspecified Status: Acute Assessment and Plan: Improving Plan 10/22/2022 A/P 1. Right lower extremity DVT status post IVC filter-patient is doing well post IVC filter. Right groin is soft and no hematoma noted. Dressing to the area is dry intact. Patient is to not receive any anticoagulation secondary to significant pancytopenia when placed on Lovenox and Coumadin. 2. Urinary retention/hematuria-urology did see patient at [facility] and stated that Soler catheter is to remain in place to be changed every 30 days. Patient states that he does occasionally have pain at Soler catheter insertion site, did discuss with patient that if he were to continue to have any issues to ensure that he does tell someone so another UA can be performed. At this point time no gross hematuria is noted and Soler catheter is draining a clear yellow urine. 3. Pancytopenia-laboratories did improve prior to discharge from [facility]. Will have baseline CBC done today and can evaluate on a routine basis. Typically patient's platelet count is in the 60s. Patient does have a flow cytometry for PNH and HIT antibody pending. Once these have returned will need to discuss plan with hematology. 4. Generalized weakness-will have PT/OT to evaluate and treat. Do appreciate further recommendations. 5. Diabetes mellitus-will have blood glucose monitoring before meals and at bedtime and will continue with home medications. 6. Chronic kidney disease-will have laboratories drawn today to evaluate kidney function. Patient did have an elevation of creatinine at 2.3 on laboratories prior to leaving [facility]. VTE: No pharmacological VTE prophylaxis secondary to having significant pancytopenia with Lovenox and Coumadin were started. Patient did have an IVC filter placed. Dispo: Patient requires inpatient monitoring with expected length of stay to exceed 2 midnights for management of care. Code Status: DNR Subjective Date/time seen: 10/24/22 10:31 Interval history: Patient states he is septic afebrile eating and drinking without difficulties and vitals remain stable starting Rocephin today and he will get 2 units of blood today and we will continue to monitor Review of Systems Review of Systems: All systems reviewed & are unremarkable except as noted in HPI and below Exam Narrative: Constitutional: Patient is a thin 87-year-old gentleman who is
[2022-10-24 11:00] LABS: Hematocrit 28.2 % (37.0-46.0); Hemoglobin 8.2 g/dL (12.4-15.3)
--- NOTE | 2022-10-24 11:04 | PHA.ABX.ID ---
Pharmacy ID Consult - Stewardship Interventions Type of Interventions: [facility] Pharmacy ID Note: Subjective Pharmacy was consulted by Amelia Case regarding infectious diseases for Jaspal Ruggiero. Jaspal Ruggiero is a 87 year old M with concerns regarding GNR present in urine culture. Background The patient is currently not receiving any anti-infective therapy. The patient's PMH includes DVT, CKD, Hx of UTI with organisms like c albicans and VRE, among what is written in provider notes. Additionally, urine culture obtained on 10/22 showing gram negative rods with speciation and senstivities pending. Microbiology 10/22/22 12:22 Urine Catheterized Urine Culture - Preliminary Gram negative bacilli isolated Laboratory Tests 10/22/22 10/22/22 10/23/22 10:56 10:56 05:06 WBC 3.8 L 3.1 L Creatinine 2.56 H 10/23/22 05:06 WBC Creatinine 2.35 H Assessment/Recommendation/Discussion In the history present in the EMR, this appears to be the first gram negative rods grown in culture for this patient that will be speciated. For this potential UTI, provider agreed to initiate treatment with ceftriaxone 2g iv q24h as we await more information for targeted therapy. Will follow for culture results, please consider reaching out should any additional information come to light or clinical picture alter. Thank you for the interesting consult. Byron Suarez, PharmD Infectious Disease/Antimicrobial Stewardship Pharmacist 10/24/22; 1104 WBC 3.1 K/mm3 (4.8-10.8) L 10/23/22 05:06 Creatinine 2.35 mg/dL (0.70-1.30) H 10/23/22 05:06 Estim Creat Clear Calc 19 ml/min 10/23/22 05:06
--- NOTE | 2022-10-24 11:08 | PC.NURSE ---
Patient catheter flushed with 60ml sterile water, and is patent and draining.
[2022-10-24] MEDS: cefTRIAXone 2 GM/NS 100 ML 2 GM/100 ML BAG IVPB (11:26)
[2022-10-24 11:38] LABS: Glucose Point of Care 184 mg/dl (65-105)
--- NOTE | 2022-10-24 13:20 | PCOTNOTE ---
The patient refused to engage in skilled OT this date due to not feeling well and medical status. The patient was educated on the the swing program and the need for the patient to participate to qualify for the program.
--- NOTE | 2022-10-24 15:48 | PCOTNOTE ---
The patient refused to get out of bed this afternoon due to feeling ill. The patient was educated on the need for participation in skilled OT to continue with swing program. The patient stated he is aware and does not want to participate with OT at this time.
[2022-10-24 16:00] VITALS: BP 133/78; PULSE 87; RESP 18; TEMP 36.1; O2SAT 100
[2022-10-24 16:46] LABS: Glucose Point of Care 144 mg/dl (65-105)
--- NOTE | 2022-10-24 17:09 | PC.NURSE ---
Patient's urine is tinted red and contains sediment. Odor resembles old blood and strong urine. 400 ml total output this shift.
[2022-10-24 18:00] LABS: Hemoglobin 7.8 g/dL (12.4-15.3)
[2022-10-24 19:47] VITALS: PULSE 87; RESP 18; O2SAT 100
[2022-10-24 20:48] VITALS: PULSE 74
[2022-10-24 20:58] LABS: Glucose Point of Care 143 mg/dl (65-105)
[2022-10-25] VITALS (10 sets, daily range): BP systolic 98–117; BP diastolic 63–76; PULSE 70–97; RESP 14–18; TEMP 36.3–36.6; O2SAT 95–100
--- NOTE | 2022-10-25 00:46 | PC.NURSE ---
flushed urinary catheter with 60ml of sterile water. return of bloody urine and blood clots noted. patient tolerated well. soler patent and draining well.
--- NOTE | 2022-10-25 03:00 | PC.NURSE ---
On 10/25/22, the REGULATORY SCIENTIST, [ Fe Wilcox], provided care and completed [facility] documentation on this patient. I have reviewed the REGULATORY SCIENTIST's documentation and agree with the findings.
--- NOTE | 2022-10-25 03:56 | PC.NURSE ---
pt called for assistance. upon entering the room this patient was upset. thought he was in a different room and wanted his old room back. this nurse reoriented patient to his room and facility and explained why he was here. patient was still insisting that he was in a different room and had been waiting for 4 hours for be taken to the bathroom. this nurse again attempted to reorientate patient, asked patient if this nurse could check to see if he needed cleaned up . this patient agreed to this. after leaving the room to get supplies, upon arriving back to the room patient was apologetic and stated that he now knows that he was mistaken and was sorry, that he was probably dreaming about being in a different room. patient was changed and repositioned to his comfort. he was thankful to this nurse after changing him. pt is now in his bad resting at this tme. no other complaints voiced.
[2022-10-25 05:13] LABS: Hemoglobin 7.3 g/dL (12.4-15.3); Mean Corpuscular HGB Conc 31.7 g/dL (32.0-36.0); Mean Corpuscular Hemoglobin 32.3 pg (27.0-31.0); Mean Corpuscular Volume 101.8 fL (78.0-102.0); Mean Platelet Volume 10.4 fl (8.7-11.0); Platelet Count Result 76 K/mm3 (150-420); Red Blood Count 2.26 M/mm3 (4.70-6.10); Red Cell Distribution Width 16.9 % (11.6-14.4); White Blood Count 4.6 K/mm3 (4.8-10.8)
[2022-10-25 05:32] LABS: Anion Gap 6 mmol/L (8-16); Blood Urea Nitrogen 38 mg/dL (7-18); Calcium 7.9 mg/dL (8.5-10.1); Carbon Dioxide 25 mmol/L (21-32); Chloride 110 mmol/L (98-108); Estimated CRCL calculation 22 ml/min; Estimated Glomerular Filt Rate 31; Glucose 108 mg/dL (70-99); Osmolality Calculated 302 mOsm/kg (285-295); Potassium 4.1 mmol/L (3.5-5.1); Sodium 141 mmol/L (136-145)
[2022-10-25 08:13] LABS: Glucose Point of Care 124 mg/dl (65-105)
[2022-10-25] MEDS: SODIUM CHLORIDE 0.9% IV 250 ML 30 ML IV CONT (08:15)
[2022-10-25] MEDS: FERROUS SULFATE 325 MG TABLET DR BY MOUTH ×2 (08:35→18:03)
[2022-10-25] MEDS: ASPIRIN 81 MG ENTERIC TABLET PO (09:10)
[2022-10-25] MEDS: TAMSULOSIN HCL 0.4 MG CAPSULE 0.8 MG PO (09:40)
[2022-10-25] MEDS: PANTOPRAZOLE 40 MG TABLET PO (09:45)
[2022-10-25] MEDS: FINASTERIDE 5 MG TABLET PO (09:45)
[2022-10-25] MEDS: ATORVASTATIN 10 MG TABLET 20 MG PO (09:46)
[2022-10-25] MEDS: buPROPion HCL XL (24 HR) 150 MG TABCR PO (09:46)
[2022-10-25] MEDS: allopurinoL 100 MG TABLET PO (09:47)
[2022-10-25] MEDS: FOLIC ACID 1 MG TABLET PO (09:47)
[2022-10-25] MEDS: MAGNESIUM OXIDE 400 MG TABLET PO (09:47)
[2022-10-25] MEDS: EMPAGLIFLOZIN 10 MG TABLET PO (09:47)
[2022-10-25] MEDS: carvediloL 1.56 MG TABLET PO ×2 (09:49→20:56)
[2022-10-25] MEDS: INSULIN GLARGINE (*BKC) 1,000 UNITS/10 ML VIAL 15 UNITS SUB-Q (09:52)
--- NOTE | 2022-10-25 11:35 | P.PNCROSS_ITS ---
Event Note Event Note Event Note: Patient has blood noted in tubing she his hgb is 7.3 we will give a unit of blo od at this time patient is in recliner chair.
[2022-10-25] MEDS: cefTRIAXone 2 GM/NS 100 ML 2 GM/100 ML BAG IVPB (12:09)
[2022-10-25 12:15] LABS: Glucose Point of Care 164 mg/dl (65-105)
--- NOTE | 2022-10-25 13:32 | PC.NURSE ---
Ceftriaxzone was given late do to blood transfusion given first. RO
[2022-10-25 17:06] LABS: Glucose Point of Care 183 mg/dl (65-105)
[2022-10-25 21:05] LABS: Glucose Point of Care 183 mg/dl (65-105)
--- NOTE | 2022-10-25 21:24 | PC.NURSE ---
flushed with 60ml of sterile water with no return, no urine noted in catheter tubing. syringe started to fill with bloody urine immediately after flushing, 120ml, flushed port site on catheter tubing with 10ml of NS and bloody urine started flowing through the tubing, return of 400ml of dark red urine. 750 ml total of dark red urine removed from catheter bag. patient stated that he felt relief from after the flush. will continue to monitor urine and patient for bladder distention.
[2022-10-26] VITALS (7 sets, daily range): BP systolic 116–129; BP diastolic 65–78; PULSE 77–97; RESP 14–18; TEMP 36.2–36.6; O2SAT 98–100
--- NOTE | 2022-10-26 01:24 | PC.NURSE ---
this nurse noted that there was no urine in the catheter bag since previous flush. this nurse flushed urinary catheter with 10ml of NS in middle tail of the 3 way, flow return of dark red urine, apporx 200-300 ml, with blood clots noted. patinet tolerated procedure well. no complaints of lower abdominal pain voiced. no bladder distention noted.
[2022-10-26 04:33] LABS: Occult Blood Negative (Negative)
[2022-10-26 05:12] LABS: Hematocrit 25.1 % (37.0-46.0); Immature Platelet Fraction Pct 1.2 % (1.0-7.0); Mean Corpuscular HGB Conc 31.9 g/dL (32.0-36.0); Mean Corpuscular Volume 97.3 fL (78.0-102.0); Mean Platelet Volume 10.2 fl (8.7-11.0); Platelet Count Result 77 K/mm3 (150-420); Red Blood Count 2.58 M/mm3 (4.70-6.10); Red Cell Distribution Width 19.4 % (11.6-14.4); White Blood Count 4.6 K/mm3 (4.8-10.8)
[2022-10-26 05:20] LABS: Anion Gap 6 mmol/L (8-16); Blood Urea Nitrogen 36 mg/dL (7-18); Calcium 7.7 mg/dL (8.5-10.1); Carbon Dioxide 24 mmol/L (21-32); Chloride 108 mmol/L (98-108); Estimated CRCL calculation 22 ml/min; Estimated Glomerular Filt Rate 31; Glucose 133 mg/dL (70-99); Osmolality Calculated 296 mOsm/kg (285-295); Potassium 3.9 mmol/L (3.5-5.1); Sodium 138 mmol/L (136-145)
--- NOTE | 2022-10-26 05:54 | PC.NURSE ---
On 10/26/22, the METALLURGIST PROCESS, [ Fe Wilcox], provided care and completed [facility] documentation on this patient. I have reviewed the METALLURGIST PROCESS's documentation and agree with the findings.
[2022-10-26] MEDS: cefTRIAXone 2 GM/NS 100 ML 2 GM/100 ML BAG IVPB (09:29)
[2022-10-26] MEDS: carvediloL 1.56 MG TABLET PO ×2 (09:35→20:11)
[2022-10-26] MEDS: FOLIC ACID 1 MG TABLET PO (09:36)
[2022-10-26] MEDS: ATORVASTATIN 10 MG TABLET 20 MG PO (09:36)
[2022-10-26] MEDS: INSULIN GLARGINE (*BKC) 1,000 UNITS/10 ML VIAL 15 UNITS SUB-Q (09:36)
[2022-10-26] MEDS: buPROPion HCL XL (24 HR) 150 MG TABCR PO (09:37)
[2022-10-26] MEDS: MAGNESIUM OXIDE 400 MG TABLET PO (09:37)
[2022-10-26] MEDS: PANTOPRAZOLE 40 MG TABLET PO (09:37)
[2022-10-26] MEDS: ASPIRIN 81 MG ENTERIC TABLET PO (09:37)
[2022-10-26] MEDS: allopurinoL 100 MG TABLET PO (09:37)
[2022-10-26] MEDS: FINASTERIDE 5 MG TABLET PO (09:37)
[2022-10-26] MEDS: TAMSULOSIN HCL 0.4 MG CAPSULE 0.8 MG PO (09:37)
[2022-10-26] MEDS: EMPAGLIFLOZIN 10 MG TABLET PO (09:38)
[2022-10-26] MEDS: FERROUS SULFATE 325 MG TABLET DR BY MOUTH ×2 (09:38→17:00)
[2022-10-26 11:48] LABS: Glucose Point of Care 138 mg/dl (65-105)
[2022-10-26 11:59] LABS: Glucose Point of Care 177 mg/dl (65-105)
[2022-10-26 16:45] LABS: Glucose Point of Care 165 mg/dl (65-105)
[2022-10-26] MEDS: LOPERAMIDE HCL 2 MG CAPSULE PO (20:11)
[2022-10-27] VITALS (7 sets, daily range): BP systolic 98–171; BP diastolic 72–98; PULSE 80–106; RESP 14–18; TEMP 36–36.6; O2SAT 99–100
[2022-10-27 00:19] LABS: Glucose Point of Care 197 mg/dl (65-105)
[2022-10-27 05:29] LABS: Hematocrit 24.8 % (37.0-46.0); Mean Corpuscular HGB Conc 32.3 g/dL (32.0-36.0); Mean Corpuscular Hemoglobin 31.3 pg (27.0-31.0); Mean Corpuscular Volume 96.9 fL (78.0-102.0); Mean Platelet Volume 10.2 fl (8.7-11.0); Platelet Count Result 72 K/mm3 (150-420); Red Blood Count 2.56 M/mm3 (4.70-6.10); White Blood Count 3.2 K/mm3 (4.8-10.8)
[2022-10-27 05:44] LABS: Alanine Aminotransferase 15 U/L (16-63); Albumin Level 1.5 g/dL (3.4-5.0); Alkaline Phosphatase 205 U/L (46-116); Anion Gap 7 mmol/L (8-16); Aspartate Amino Transferase 23 U/L (15-37); Bilirubin,Total 0.5 mg/dL (0.00-1.00); Blood Urea Nitrogen 33 mg/dL (7-18); Calcium 7.9 mg/dL (8.5-10.1); Carbon Dioxide 23 mmol/L (21-32); Chloride 110 mmol/L (98-108); Estimated CRCL calculation 24 ml/min; Estimated Glomerular Filt Rate 34; Glucose 110 mg/dL (70-99); Osmolality Calculated 298 mOsm/kg (285-295); Potassium 4.1 mmol/L (3.5-5.1); Sodium 140 mmol/L (136-145); Total Protein 5.5 g/dL (6.4-8.2)
[2022-10-27 05:51] LABS: Band Neutrophils Percent 0 % (0-6); Basophils Percent Manual 0 % (0-1); Eosinophils Absolute Manual 0.16 K/mm3 (0.02-0.5); Eosinophils Percent Manual 5 % (1-6); Lymphocytes Absolute Manual 0.44 K/mm3 (1.1-4.5); Lymphocytes Percent Manual 14 % (18-44); Monocytes Absolute Manual 0.19 K/mm3 (0.1-0.90); Monocytes Percent Manual 6 % (3-9); Neutrophils Percent Manual 75 % (46-73)
[2022-10-27 07:56] LABS: Glucose Point of Care 121 mg/dl (65-105)
--- NOTE | 2022-10-27 07:57 | PM.IMPN ---
Progress Note: A&P Assessment and Plan (1) Right leg DVT: Qualifiers: Affected thrombotic vein of extremity: femoral Chronicity: acute Qualified Code(s): I82.411 - Acute embolism and thrombosis of right femoral vein Code(s): I82.401 - Acute embolism and thrombosis of unspecified deep veins of right lower extremity Status: Acute Assessment and Plan: IVC filter in place Unable to anticoagulate due to pancytopenia RLE +2-3 edema without pain or tenderness and no obvious erythema (2) Retention of urine: Code(s): R33.9 - Retention of urine, unspecified Status: Acute Assessment and Plan: Nelson catheter in place, dark red urine in place patient urine growing Enterobacter cloacae complex. Having hallucinations. Will start on Meropenem 0.5 grams IV BID until hallucinations resolve and then transition to PO Bactrim for a total course of 7 days of treatment. EOT 11/02. (3) Hematuria: Qualifiers: Hematuria type: gross Qualified Code(s): R31.0 - Gross hematuria Code(s): R31.9 - Hematuria, unspecified Status: Acute Assessment and Plan: Re-current hematuria Urology is recommending prostate arterial embolization Hgb stable at 8 Last pRBC was 10/25 Working to transfer to [facility] for IR procedure (4) Pancytopenia: Code(s): D61.818 - Other pancytopenia Status: Acute Assessment and Plan: in need of Bone Marrow oncology states it will be outpatient when he is more stable In part, related to his liver cirrhosis (5) Generalized weakness: Code(s): R53.1 - Weakness Status: Acute Assessment and Plan: PT/OT consulted and working with patient (6) Diabetes mellitus: Code(s): E11.9 - Type 2 diabetes mellitus without complications Status: Acute Assessment and Plan: Stable. On Lantus 15 units and SSI Accu checks Ac/Hs Blood glucose has ranged 120-180's (7) Chronic kidney disease: Code(s): N18.9 - Chronic kidney disease, unspecified Status: Acute Assessment and Plan: Improving Cr 1.87 Plan Feeding:DM diet Analgesia:Acetaminophen prn Thromboembolic prophylaxis: IVC filter, unable to anticoagulate, SCDs deferred due to presence of DVT Ulcer prophylaxis: Protonix daily Glycemic control: Lantus and SSI Bowel regimen: n/a, having loose stools Lines: PIV Antibiotics: Meropenem 0.5 grams IV BID; transition to oral Bactrim when clinically appropriate. Subjective Date/time seen: 10/27/22 07:57 Interval history: This is an 87 year old gentleman with a PMH of BPH, CAD, CKD, Gout, DM, HLD, liver cirrhosis (suspected VENEGAS), HTN, DVT s/p IVC filter placement and recurrent hematuria. He has had a 40+ days hospitalization between [facility] and [facility] for recurrent hematuria requiring frequent urology consults and CBI. During his most recent stay at [facility] he was found to have a RLE DVT. Unfortunately, he is unable to be anticoagulated as he continues to have recurrent hematuria requiring transfusions with pRBC. He also has thrombocytopenia suspected to be related to his cirrhosis. On 10/19 he underwent IVC filter placement with general surgery. He was discharged back to [facility] on 10/21 where he currently resides receiving PT and OT therapy services as well as IV antibiotics for a complicated UTI with UA growing multi-resistant Enterobacter cloacae complex. He is able to take PO Bactrim however he has been having some hallucinations so I feel it is safest to start with IV Meropenem for a day or two prior to switching to oral antibiotics. He will complete a 7 day course with 10/27 being the start of therapy. His Nelson catheter continues to have blood present requiring intermittent manually irrigation and his most recent pRBC transfusion was 10/25 for hgb of 7.3. 10/26-I spoke with Yessenia, patient's daughter about her concerns and frustrations regarding her father's care. She
--- NOTE | 2022-10-27 08:10 | PHA.ABX.ID ---
Pharmacy ID Consult - Stewardship Interventions Type of Interventions: Other Pharmacy ID Note: Patient was on ceftriaxone (day 4 - 3 days of therapy) and is now transitioned to meropenem 500 mg q12h by provider Amelia Gauthier for the management of this enterobacter cloacae isolate grown in patient's urine culture from 10/22. final sensitivities show wide range of resistance, likely showing active AmpC production with some additional resistance mechanisms. Sensitivity remains to meropenem, SMX/TMP, and gentamicin per report. Provider states patient having hallucinations today and would like to continue/start effective parenteral therapy at this time with the meropenem. Agreed. As patient improves, can consider transition to oral sulfamethoxazole/trimethoprim if appropriate to complete out 7-10 d course depending on speed of recovery from today. 10/27 to be day 1. If CrCl remains between 15-30 mL/min, dosing for UTI is 1 DS tablet once followed by 1 SS tablet q12h for Bactrim, or 1 DS twice daily for CrCl >30 mL/min. Will sign off consult at this point. Consider reconsultation or reaching out if anything is needed. Microbiology 10/22/22 12:22 Urine Catheterized Urine Culture - Final Enterobacter cloacae complex Previous note copied below Subjective Pharmacy was consulted by Amelia Case regarding infectious diseases for Jaspal Ruggiero. Jaspal Ruggiero is a 87 year old M with concerns regarding GNR present in urine culture. Background The patient is currently not receiving any anti-infective therapy. The patient's PMH includes DVT, CKD, Hx of UTI with organisms like c albicans and VRE, among what is written in provider notes. Additionally, urine culture obtained on 10/22 showing gram negative rods with speciation and senstivities pending. Microbiology 10/22/22 12:22 Urine Catheterized Urine Culture - Preliminary Gram negative bacilli isolated Laboratory Tests 10/22/22 10/22/22 10/23/22 10:56 10:56 05:06 WBC 3.8 L 3.1 L Creatinine 2.56 H 10/23/22 05:06 WBC Creatinine 2.35 H Assessment/Recommendation/Discussion In the history present in the EMR, this appears to be the first gram negative rods grown in culture for this patient that will be speciated. For this potential UTI, provider agreed to initiate treatment with ceftriaxone 2g iv q24h as we await more information for targeted therapy. Will follow for culture results, please consider reaching out should any additional information come to light or clinical picture alter. Thank you for the interesting consult. Byron Suarez, PharmD Infectious Disease/Antimicrobial Stewardship Pharmacist 10/24/22; [id number]
[2022-10-27] MEDS: INSULIN GLARGINE (*BKC) 1,000 UNITS/10 ML VIAL 15 UNITS SUB-Q (08:43)
[2022-10-27] MEDS: FERROUS SULFATE 325 MG TABLET DR BY MOUTH ×2 (08:43→18:09)
[2022-10-27] MEDS: PANTOPRAZOLE 40 MG TABLET PO (08:44)
[2022-10-27] MEDS: carvediloL 1.56 MG TABLET PO (08:44)
[2022-10-27] MEDS: allopurinoL 100 MG TABLET PO (08:44)
[2022-10-27] MEDS: FOLIC ACID 1 MG TABLET PO (08:44)
[2022-10-27] MEDS: TAMSULOSIN HCL 0.4 MG CAPSULE 0.8 MG PO (08:45)
[2022-10-27] MEDS: ASPIRIN 81 MG ENTERIC TABLET PO (08:45)
[2022-10-27] MEDS: buPROPion HCL XL (24 HR) 150 MG TABCR PO (08:45)
[2022-10-27] MEDS: FINASTERIDE 5 MG TABLET PO (08:45)
[2022-10-27] MEDS: ATORVASTATIN 10 MG TABLET 20 MG PO (08:45)
[2022-10-27] MEDS: EMPAGLIFLOZIN 10 MG TABLET PO (08:45)
[2022-10-27] MEDS: MAGNESIUM OXIDE 400 MG TABLET PO (08:45)
[2022-10-27] MEDS: MEROPENEM 500 MG in SODIUM CHLORIDE 0.9% IV 100 ML 200 ML IVPB (09:53)
[2022-10-27 11:56] LABS: Glucose Point of Care 185 mg/dl (65-105)
--- NOTE | 2022-10-27 18:00 | PC.NURSE ---
Nelson cath irrigated, all flush returned plus 200 of urine. Urine clear dark red. Patient reports feeling pressure prior to irrigation. No clots noted. Patient had 2 BMs at time of irrigation as well.
[2022-10-27 18:14] LABS: Glucose Point of Care 141 mg/dl (65-105)
--- NOTE | 2022-10-27 19:45 | PC.NURSE ---
Pt c/o abdominal pain, burning, and pressure, states he is unsure if it is his penis or he needs to have a BM. BP: , P: 106. Pt noted to be incontinent of moderate amount of loose black tarry stools, bleeding noted to front of depend from penis, blood clot noted in F/C tubing, cath irrigated with 60mL sterile water, with no return, irrigation repeated, with no return. Blood clot noted near hub of catheter, cath disconnected from collection bag and irrigated with 40mL through that lumen, clot and katiana red blood return noted. Pt states some relief noted, PRN Immodium given for loose stools and Tylenol given for abdominal pain.
[2022-10-27] MEDS: MEROPENEM 500 MG/NS 100 ML 500 MG/100 ML BAG 200 MG IVPB (20:57)
[2022-10-27] MEDS: LOPERAMIDE HCL 2 MG CAPSULE PO (21:02)
[2022-10-27] MEDS: ACETAMINOPHEN 325 MG TABLET 650 MG PO (21:02)
[2022-10-27 21:07] LABS: Glucose Point of Care 145 mg/dl (65-105)
[2022-10-28] VITALS (12 sets, daily range): BP systolic 87–136; BP diastolic 56–78; PULSE 76–96; RESP 18; TEMP 35.8–36.5; O2SAT 98–100
--- NOTE | 2022-10-28 05:00 | PC.NURSE ---
Irrigated F/C with 120mL sterile water, return of 200mL dark red urine noted. Tolerated well.
[2022-10-28 05:18] LABS: Hematocrit 22.1 % (37.0-46.0)
--- NOTE | 2022-10-28 05:58 | PC.NURSE ---
Called Aleks Gauthier RACING MANAGER with 7.0 Hg with order received to transfuse with 1 unit packed RBC's. Called lab and was told by Cristina that no order is needed due to patient only receiving one of the two units that were ordered previously.
--- NOTE | 2022-10-28 06:02 | PC.NURSE ---
Cristina from lab called to say that an order is needed due to it being 92 hours since prior order.
[2022-10-28] MEDS: SODIUM CHLORIDE 0.9% IV 250 ML 30 ML IV CONT (07:32)
[2022-10-28 07:38] LABS: Glucose Point of Care 145 mg/dl (65-105)
--- NOTE | 2022-10-28 08:01 | PC.NURSE ---
Increased blood dose rate from 100 ml/hr to 125 ml/hr. Patient tolerating transfusion well.
[2022-10-28] MEDS: ATORVASTATIN 10 MG TABLET 20 MG PO (08:33)
[2022-10-28] MEDS: allopurinoL 100 MG TABLET PO (08:33)
[2022-10-28] MEDS: MAGNESIUM OXIDE 400 MG TABLET PO (08:33)
[2022-10-28] MEDS: FINASTERIDE 5 MG TABLET PO (08:33)
--- NOTE | 2022-10-28 08:33 | PC.NURSE ---
Increased transfusion rate from 125 ml/hr to 150 ml/hr. Patient tolerating transfusion well.
[2022-10-28] MEDS: FERROUS SULFATE 325 MG TABLET DR BY MOUTH ×2 (08:34→17:09)
[2022-10-28] MEDS: ASPIRIN 81 MG ENTERIC TABLET PO (08:34)
[2022-10-28] MEDS: FOLIC ACID 1 MG TABLET PO (08:34)
[2022-10-28] MEDS: EMPAGLIFLOZIN 10 MG TABLET PO (08:34)
[2022-10-28] MEDS: PANTOPRAZOLE 40 MG TABLET PO (08:34)
[2022-10-28] MEDS: buPROPion HCL XL (24 HR) 150 MG TABCR PO (08:35)
[2022-10-28] MEDS: TAMSULOSIN HCL 0.4 MG CAPSULE 0.8 MG PO (08:35)
[2022-10-28] MEDS: carvediloL 1.56 MG TABLET PO (08:35)
[2022-10-28] MEDS: INSULIN GLARGINE (*BKC) 1,000 UNITS/10 ML VIAL 15 UNITS SUB-Q (08:38)
--- NOTE | 2022-10-28 08:59 | PM.EVENT ---
Event Note Event Note Event Note: Patient lost IV access while getting blood transfusion. Nursing staff having difficulty establishing new access. I inserted peripheral IV 20 gauge in right lower forearm. Blood transfusion continued. Nelson drainage bag has bloody thick urine present. Plan is to transfer patient to [facility] on 11/01 for Urology and Interventional Radiology for prostrate embolization. Patient remains in swing bed status. Will recheck CBC after transfusion.
--- NOTE | 2022-10-28 10:30 | PC.NURSE ---
Blood transfusion complete. patient tolerated well. IV ABT started late due to blood infusing.
[2022-10-28] MEDS: MEROPENEM 500 MG/NS 100 ML 500 MG/100 ML BAG 200 MG IVPB ×2 (10:36→20:23)
[2022-10-28 11:34] LABS: Glucose Point of Care 209 mg/dl (65-105)
[2022-10-28] MEDS: INSULIN HUMAN LISPRO (*BKC) 1,000 UNITS/10 ML VIAL SUB-Q (11:35)
[2022-10-28 15:37] LABS: Hematocrit 23.6 % (37.0-46.0); Hemoglobin 7.6 g/dL (12.4-15.3); Immature Platelet Fraction Pct 1.4 % (1.0-7.0); Mean Corpuscular HGB Conc 32.2 g/dL (32.0-36.0); Mean Corpuscular Hemoglobin 30.9 pg (27.0-31.0); Mean Corpuscular Volume 95.9 fL (78.0-102.0); Mean Platelet Volume 10.2 fl (8.7-11.0); Platelet Count Result 85 K/mm3 (150-420); Red Blood Count 2.46 M/mm3 (4.70-6.10); Red Cell Distribution Width 18.5 % (11.6-14.4)
[2022-10-28 15:42] LABS: White Blood Count 6.4 K/mm3 (4.8-10.8)
[2022-10-28 16:33] LABS: Glucose Point of Care 80 mg/dl (65-105)
[2022-10-28] MEDS: ACETAMINOPHEN 325 MG TABLET 650 MG PO (20:25)
[2022-10-28 20:29] LABS: Glucose Point of Care 112 mg/dl (65-105)
[2022-10-29] VITALS (11 sets, daily range): BP systolic 93–114; BP diastolic 56–68; PULSE 71–80; RESP 16–18; TEMP 35.7–36.4; O2SAT 99–100
[2022-10-29 06:45] LABS: Hematocrit 21.9 % (37.0-46.0); Mean Corpuscular Hemoglobin 31.1 pg (27.0-31.0); Mean Corpuscular Volume 97.3 fL (78.0-102.0); Mean Platelet Volume 9.9 fl (8.7-11.0); Platelet Count Result 63 K/mm3 (150-420); Red Blood Count 2.25 M/mm3 (4.70-6.10); Red Cell Distribution Width 19.1 % (11.6-14.4); White Blood Count 3.3 K/mm3 (4.8-10.8)
[2022-10-29 07:37] LABS: Glucose Point of Care 84 mg/dl (65-105)
[2022-10-29] MEDS: TAMSULOSIN HCL 0.4 MG CAPSULE 0.8 MG PO (08:07)
[2022-10-29] MEDS: ASPIRIN 81 MG ENTERIC TABLET PO (08:07)
[2022-10-29] MEDS: PANTOPRAZOLE 40 MG TABLET PO (08:07)
[2022-10-29] MEDS: EMPAGLIFLOZIN 10 MG TABLET PO (08:08)
[2022-10-29] MEDS: buPROPion HCL XL (24 HR) 150 MG TABCR PO (08:08)
[2022-10-29] MEDS: MAGNESIUM OXIDE 400 MG TABLET PO (08:08)
[2022-10-29] MEDS: FERROUS SULFATE 325 MG TABLET DR BY MOUTH ×2 (08:08→17:19)
[2022-10-29] MEDS: allopurinoL 100 MG TABLET PO (08:09)
[2022-10-29] MEDS: carvediloL 1.56 MG TABLET PO ×2 (08:09→20:40)
[2022-10-29] MEDS: FOLIC ACID 1 MG TABLET PO (08:09)
[2022-10-29] MEDS: ATORVASTATIN 10 MG TABLET 20 MG PO (08:10)
[2022-10-29] MEDS: FINASTERIDE 5 MG TABLET PO (08:10)
[2022-10-29] MEDS: INSULIN GLARGINE (*BKC) 1,000 UNITS/10 ML VIAL 15 UNITS SUB-Q (08:12)
[2022-10-29] MEDS: MEROPENEM 500 MG/NS 100 ML 500 MG/100 ML BAG 200 MG IVPB ×2 (08:13→20:37)
[2022-10-29] MEDS: SODIUM CHLORIDE 0.9% IV 250 ML 30 ML IV CONT (09:06)
--- NOTE | 2022-10-29 09:19 | PC.NURSE ---
Transfusion started at 0912.
--- NOTE | 2022-10-29 09:58 | PC.NURSE ---
Transfusion rate increased from 100 ml/hr to 125 ml/hr. Patient tolerating well.
--- NOTE | 2022-10-29 10:27 | PC.NURSE ---
Transfusion rate increased from 125 ml/hr to 150 ml/hr. Patient tolerating well.
[2022-10-29 11:37] LABS: Glucose Point of Care 127 mg/dl (65-105)
--- NOTE | 2022-10-29 11:53 | PM.IMPN ---
Progress Note: A&P Assessment and Plan (1) Right leg DVT: Qualifiers: Affected thrombotic vein of extremity: femoral Chronicity: acute Qualified Code(s): I82.411 - Acute embolism and thrombosis of right femoral vein Code(s): I82.401 - Acute embolism and thrombosis of unspecified deep veins of right lower extremity Status: Acute Assessment and Plan: IVC filter in place Unable to anticoagulate due to pancytopenia RLE +2-3 edema without pain or tenderness and no obvious erythema (2) Retention of urine: Code(s): R33.9 - Retention of urine, unspecified Status: Acute Assessment and Plan: Nelson catheter in place, dark red urine in place patient urine growing Enterobacter cloacae complex. Will start on Meropenem 0.5 grams IV BID until hallucinations resolve and then transition to PO Bactrim for a total course of 7 days of treatment. EOT 11/02. (3) Hematuria: Qualifiers: Hematuria type: gross Qualified Code(s): R31.0 - Gross hematuria Code(s): R31.9 - Hematuria, unspecified Status: Acute Assessment and Plan: Re-current hematuria Urology is recommending prostate arterial embolization Planning transfer to [facility] on 11/01 for IR procedure Hemoglobin 7.0 on 10/28, transfused 1 unit PRBCs with repeat hemoglobin 7.6 Low blood pressure overnight prompted repeat CBC which showed hemoglobin back down to 7.0. Transfuse PRBCs with goal hemoglobin 8. (4) Pancytopenia: Code(s): D61.818 - Other pancytopenia Status: Acute Assessment and Plan: in need of Bone Marrow oncology states it will be outpatient when he is more stable In part, related to his liver cirrhosis (5) Generalized weakness: Code(s): R53.1 - Weakness Status: Acute Assessment and Plan: PT/OT consulted and working with patient (6) Diabetes mellitus: Code(s): E11.9 - Type 2 diabetes mellitus without complications Status: Acute Assessment and Plan: Stable. On Lantus 15 units and SSI Accu checks Ac/Hs Blood glucose has ranged 120-180's (7) Chronic kidney disease: Code(s): N18.9 - Chronic kidney disease, unspecified Status: Acute Assessment and Plan: Will check BMP with next set of labs Plan Feeding:DM diet Analgesia:Acetaminophen prn VTE prophylaxis: IVC filter, unable to anticoagulate, SCDs deferred due to presence of DVT Ulcer prophylaxis: Protonix daily Glycemic control: Lantus and SSI Bowel regimen: n/a, having loose stools Lines: PIV Antibiotics: Meropenem 0.5 grams IV BID; transition to oral Bactrim when clinically appropriate. Hemoglobin 7.0 on 10/28, transfused 1 unit PRBCs with repeat hemoglobin 7.6 Low blood pressure overnight prompted repeat CBC which showed hemoglobin back down to 7.0. Transfuse PRBCs with goal hemoglobin 8. Time Spent With Patient Time with patient: 25 - 35 minutes Subjective Date/time seen: 10/29/22 07:30 Interval history: Patient had 1 unit PRBCs transfused yesterday for hemoglobin of 7 and katiana blood in urinary catheter. Transfer to [facility] is expected on 11/01 for evaluation for likely prostate embolization by Interventional Radiology. I am told this is not available until that time. Overnight patient had slightly low blood pressure and CBC was ordered for morning labs. Hemoglobin was back down to 7.0. Ordered 2 units PRBCs for type and cross and transfuse 1 unit then get hemoglobin and hematocrit drawn and transfuse 2nd unit if repeat hemoglobin is less than 8. Patient reports that he is actually feeling very well today. He feels better than he has recently. He has no current complaints at this time. Review of Systems Review of Systems: All systems reviewed & are unremarkable except as noted in HPI and below Exam Narrative: General: chronically ill appearing, well developed, thin, pale, appears stated age. HEENT: normocephalic, atrau
[2022-10-29 12:20] LABS: Hematocrit 26.4 % (37.0-46.0); Hemoglobin 8.4 g/dL (12.4-15.3)
[2022-10-29 17:02] LABS: Glucose Point of Care 138 mg/dl (65-105)
[2022-10-29] MEDS: ACETAMINOPHEN 325 MG TABLET 650 MG PO (20:41)
[2022-10-29 20:44] LABS: Glucose Point of Care 133 mg/dl (65-105)
[2022-10-30 05:21] LABS: Basophils Absolute Auto 0.01 K/mm3 (0.00-0.10); Basophils Percent Auto 0.3 % (0.0-1.0); Eosinophils Absolute Auto 0.13 K/mm3 (0.02-0.50); Hematocrit 26.1 % (37.0-46.0); Hemoglobin 8.3 g/dL (12.4-15.3); Immature Granulocyte Absolute 0.03 K/mm3 (0.00-0.00); Immature Granulocyte Percent A 0.9 % (0.0-0.0); Immature Platelet Fraction Pct 1.5 % (1.0-7.0); Lymphocytes Absolute Auto 0.65 K/mm3 (1.10-4.50); Lymphocytes Percent Auto 19.8 % (18.0-42.0); Mean Corpuscular HGB Conc 31.8 g/dL (32.0-36.0); Mean Corpuscular Hemoglobin 30.4 pg (27.0-31.0); Mean Corpuscular Volume 95.6 fL (78.0-102.0); Mean Platelet Volume 10.5 fl (8.7-11.0); Monocytes Absolute Auto 0.25 K/mm3 (0.10-0.90); Monocytes Percent Auto 7.6 % (2.0-11.0); Neutrophils Absolute Auto 2.2 K/mm3 (1.7-7.2); Neutrophils Percent Auto 67.4 % (50.0-70.0); Platelet Count Result 63 K/mm3 (150-420); Red Blood Count 2.73 M/mm3 (4.70-6.10); Red Cell Distribution Width 18.5 % (11.6-14.4); White Blood Count 3.3 K/mm3 (4.8-10.8)
[2022-10-30 05:34] LABS: Alanine Aminotransferase 19 U/L (16-63); Albumin Level 1.5 g/dL (3.4-5.0); Alkaline Phosphatase 219 U/L (46-116); Anion Gap 6 mmol/L (8-16); Aspartate Amino Transferase 33 U/L (15-37); Bilirubin,Total 0.5 mg/dL (0.00-1.00); Blood Urea Nitrogen 32 mg/dL (7-18); Calcium 7.9 mg/dL (8.5-10.1); Carbon Dioxide 24 mmol/L (21-32); Chloride 107 mmol/L (98-108); Estimated CRCL calculation 20 ml/min; Estimated Glomerular Filt Rate 28; Glucose 78 mg/dL (70-99); Osmolality Calculated 289 mOsm/kg (285-295); Potassium 4.6 mmol/L (3.5-5.1); Sodium 137 mmol/L (136-145); Total Protein 5.2 g/dL (6.4-8.2)
[2022-10-30 07:48] LABS: Glucose Point of Care 101 mg/dl (65-105)
[2022-10-30 08:00] VITALS: BP 122/81; PULSE 73; RESP 16; TEMP 36; O2SAT 100
[2022-10-30 08:47] VITALS: PULSE 81
[2022-10-30] MEDS: EMPAGLIFLOZIN 10 MG TABLET PO (08:47)
[2022-10-30] MEDS: TAMSULOSIN HCL 0.4 MG CAPSULE 0.8 MG PO (08:47)
[2022-10-30] MEDS: carvediloL 1.56 MG TABLET PO ×2 (08:47→20:18)
[2022-10-30] MEDS: ATORVASTATIN 10 MG TABLET 20 MG PO (08:47)
[2022-10-30] MEDS: MAGNESIUM OXIDE 400 MG TABLET PO (08:48)
[2022-10-30] MEDS: PANTOPRAZOLE 40 MG TABLET PO (08:48)
[2022-10-30] MEDS: ASPIRIN 81 MG ENTERIC TABLET PO (08:48)
[2022-10-30] MEDS: FERROUS SULFATE 325 MG TABLET DR BY MOUTH ×2 (08:49→17:18)
[2022-10-30] MEDS: buPROPion HCL XL (24 HR) 150 MG TABCR PO (08:49)
[2022-10-30] MEDS: FOLIC ACID 1 MG TABLET PO (08:49)
[2022-10-30] MEDS: FINASTERIDE 5 MG TABLET PO (08:49)
[2022-10-30] MEDS: allopurinoL 100 MG TABLET PO (08:50)
[2022-10-30] MEDS: MEROPENEM 500 MG/NS 100 ML 500 MG/100 ML BAG 200 MG IVPB (08:50)
[2022-10-30] MEDS: INSULIN GLARGINE (*BKC) 1,000 UNITS/10 ML VIAL 15 UNITS SUB-Q (09:00)
[2022-10-30 11:44] LABS: Glucose Point of Care 128 mg/dl (65-105)
--- NOTE | 2022-10-30 12:02 | PC.NURSE ---
Patient c/o not feeling right . VS 96.7, 97%, 16,76, and 111/66. Fluorescent Solution Mixer was going to get patient up for lunch, but patient declined. Patient states that he is noticing that he is confused, and when he dreams, he wakes up and doesn't know what is going on. Will continue to monitor.
[2022-10-30 16:00] VITALS: BP 108/67; PULSE 81; RESP 16; TEMP 36.1; O2SAT 99
[2022-10-30 16:50] LABS: Glucose Point of Care 97 mg/dl (65-105)
--- NOTE | 2022-10-30 19:25 | PC.NURSE ---
No output noted to F/C drainage bag, irrigated with 60mL of NS with no return, irrigation repeated, return of semi-clear red drainage with clots noted, tolerated well. Pt noted to be incontinent of large loose dark BM, xavier-care and cath-care provided, barrier cream applied as preventative, pt denies further needs at this time.
[2022-10-30 20:00] VITALS: PULSE 84; RESP 16; O2SAT 99
[2022-10-30 20:18] VITALS: PULSE 84
[2022-10-30] MEDS: LOPERAMIDE HCL 2 MG CAPSULE PO (20:18)
[2022-10-30] MEDS: SULFAMETHOXAZOLE/TRIMETHOPRIM 800/160 MG DS TABLET 1 TAB PO (20:18)
[2022-10-30] MEDS: ACETAMINOPHEN 325 MG TABLET 650 MG PO (20:18)
[2022-10-30 20:23] LABS: Glucose Point of Care 133 mg/dl (65-105)
[2022-10-31] VITALS: BP 106/7; PULSE 84; RESP 16; TEMP 36.4; O2SAT 100
[2022-10-31 07:51] LABS: Glucose Point of Care 161 mg/dl (65-105)
[2022-10-31 08:00] VITALS: BP 110/54; PULSE 62; RESP 14; TEMP 36.8; O2SAT 97
[2022-10-31] MEDS: allopurinoL 100 MG TABLET PO (08:33)
[2022-10-31] MEDS: buPROPion HCL XL (24 HR) 150 MG TABCR PO (08:34)
[2022-10-31] MEDS: FERROUS SULFATE 325 MG TABLET DR BY MOUTH ×2 (08:36→17:09)
[2022-10-31 09:15] VITALS: PULSE 60
[2022-10-31] MEDS: EMPAGLIFLOZIN 10 MG TABLET PO (09:15)
[2022-10-31] MEDS: ATORVASTATIN 10 MG TABLET 20 MG PO (09:15)
[2022-10-31] MEDS: FOLIC ACID 1 MG TABLET PO (09:15)
[2022-10-31] MEDS: carvediloL 1.56 MG TABLET PO ×2 (09:15→21:12)
[2022-10-31] MEDS: ASPIRIN 81 MG ENTERIC TABLET PO (09:15)
[2022-10-31] MEDS: INSULIN GLARGINE (*BKC) 1,000 UNITS/10 ML VIAL 15 UNITS SUB-Q (09:15)
[2022-10-31] MEDS: TAMSULOSIN HCL 0.4 MG CAPSULE 0.8 MG PO (09:20)
[2022-10-31] MEDS: PANTOPRAZOLE 40 MG TABLET PO (09:20)
[2022-10-31] MEDS: SULFAMETHOXAZOLE/TRIMETHOPRIM 800/160 MG DS TABLET 0.5 TAB PO ×2 (09:25→21:13)
[2022-10-31] MEDS: MAGNESIUM OXIDE 400 MG TABLET PO (09:25)
[2022-10-31] MEDS: FINASTERIDE 5 MG TABLET PO (09:25)
[2022-10-31 11:45] LABS: Glucose Point of Care 187 mg/dl (65-105)
[2022-10-31 15:00] VITALS: BP 96/60; PULSE 82; RESP 20; TEMP 36.4; O2SAT 98
[2022-10-31 20:00] VITALS: PULSE 80; RESP 20; O2SAT 98
--- NOTE | 2022-10-31 21:06 | PM.TDS ---
Transfer Discharge Sum: Prov Provider Date of admission: 10/21/22 18:05 Primary care physician: Yeyo Henriquez MD Admitting clinician: Lamonte Briggs MD Consults: 10/24/22 10:06 Consult Infectious Disease Pharmacist Routine Comment: Attending physician on discharge: Olvin Briggs Discharging clinician: Jatinder Mcdonald Anticipated date of transfer: 10/31/22 Receiving physician/facility: [facility] Dr. Ricardo Lujan DS: Admitting Diagnosis Discharge Date 10/31/2022 Admitting Diagnosis Right leg DVT, urinary tension, hematuria, pancytopenia, generalized weakness, diabetes mellitus, chronic kidney disease DS: Discharge Diagnosis Discharge Diagnosis (1) Hematuria: Qualifiers: Hematuria type: gross Qualified Code(s): R31.0 - Gross hematuria Code(s): R31.9 - Hematuria, unspecified Status: Acute (2) Chronic kidney disease: Code(s): N18.9 - Chronic kidney disease, unspecified Status: Acute (3) Pancytopenia: Code(s): D61.818 - Other pancytopenia Status: Acute (4) Diabetes mellitus: Code(s): E11.9 - Type 2 diabetes mellitus without complications Status: Acute (5) Generalized weakness: Code(s): R53.1 - Weakness Status: Acute (6) Retention of urine: Code(s): R33.9 - Retention of urine, unspecified Status: Acute (7) Right leg DVT: Qualifiers: Affected thrombotic vein of extremity: femoral Chronicity: acute Qualified Code(s): I82.411 - Acute embolism and thrombosis of right femoral vein Code(s): I82.401 - Acute embolism and thrombosis of unspecified deep veins of right lower extremity Status: Acute Plan transfer to [facility] for Interventional Radiology to embolize prostate Transfer Discharge Sum: Med Medications Active and Home Medications: Home Medications allopurinol 100 mg tablet 100 mg PO DAILY 05/26/20 [History Confirmed 10/21/22] atorvastatin 40 mg tablet 20 mg PO DAILY 05/26/20 [History Confirmed 10/21/22] folic acid 1 mg tablet 1 mg PO DAILY 05/26/20 [History Confirmed 10/21/22] tamsulosin 0.4 mg capsule 0.8 mg PO BID 03/31/21 [History Confirmed 10/21/22] carvedilol 3.125 mg tablet 1.56 mg PO Q8H 03/12/22 [History Confirmed 10/21/22] pantoprazole 40 mg tablet,delayed release 40 mg PO QAM #30 tabs 08/10/22 [Rx Confirmed 10/21/22] aspirin 81 mg tablet,delayed release 81 mg PO QAM #30 tabs 09/04/22 [Rx Confirmed 10/21/22] empagliflozin 10 mg tablet (Jardiance) 10 mg PO DAILY 30 days #30 tabs 09/04/22 [Rx Confirmed 10/21/22] finasteride 5 mg tablet (Proscar) 5 mg PO QAM #30 tabs 09/27/22 [Rx Confirmed 10/21/22] insulin glargine 100 unit/mL subcutaneous solution (Lantus U-100 Insulin) 15 unit subcut QAM 09/27/22 [History Confirmed 10/21/22] ferrous sulfate 325 mg (65 mg iron) tablet 325 mg PO BID 10/02/22 [History Confirmed 10/21/22] loperamide 2 mg capsule 2 mg PO Q6H PRN Diarrhea 10/02/22 [History Confirmed 10/21/22] magnesium oxide 400 mg PO DAILY 10/02/22 [History Confirmed 10/21/22] bupropion HCl 150 mg 24 hr tablet, extended release 150 mg PO QAM 30 days #30 tabs 10/21/22 [Rx Confirmed 10/21/22] Active Medications Acetaminophen (Acetaminophen 325 Mg Tablet) 650 mg PO Q4H PRN PRN Reason: Mild Pain (1-3) or Fever Last Admin: 10/30/22 20:18 Dose: 650 mg Allopurinol (Allopurinol 100 Mg Tablet) 100 mg PO DAILY@0800 [facility] Last Admin: 10/31/22 08:33 Dose: 100 mg Aspirin (Aspirin 81 Mg Enteric Tablet) 81 mg PO QAM [facility] Last Admin: 10/31/22 09:15 Dose: 81 mg Atorvastatin Calcium (Atorvastatin 10 Mg Tablet) 20 mg PO DAILY [facility] Last Admin: 10/31/22 09:15 Dose: 20 mg Bupropion HCl (Bupropion Hcl Xl (24 Hr) 150 Mg Tabcr) 150 mg PO QAM [facility] Last Admin: 10/31/22 08:34 Dose: 150 mg Carvedilol (Carvedilol 1.56 Mg Tablet) 1.56 mg PO Q12HR [facility] Last Admin: 10/31/22 09:15 Dose: 1.56 mg Dextrose (Dextrose 50% 25 Gm/50 Ml Syringe) 12.5 gm IV PUSH
[2022-10-31 21:12] VITALS: PULSE 80
[2022-10-31 21:12] LABS: Glucose Point of Care 156 mg/dl (65-105)
[2022-10-31 21:36] LABS: Glucose Point of Care 125 mg/dl (65-105)
--- NOTE | 2022-10-31 22:07 | PC.NURSE ---
Patient's daughter, Yessenia, notified that there is a room assigned to patient. Room number given to Yessenia.
--- NOTE | 2022-10-31 22:16 | PC.NURSE ---
nurse to nurse report called to dash yoder at [facility] pt taken by [facility] all belonging taken with pt
== END 2022-10-31 22:15 | disposition short-term general hospital (02) | DRG 948 ==
PROVIDERS: Nurse Practitioner; Nurse Practitioner Acute Care; Nurse Practitioner Adult Health; Nurse Practitioner Family; Admitting Provider Internal Medicine; PCP Internal Medicine; Visit Provider Internal Medicine
DX: R53.1 Weakness (principal); D61.818 Other pancytopenia; I82.401 Acute embolism and thrombosis of unspecified deep veins of right lower extremity; N39.0 Urinary tract infection, site not specified; K74.60 Unspecified cirrhosis of liver; I25.10 Atherosclerotic heart disease of native coronary artery without angina pectoris; I12.9 Hypertensive chronic kidney disease with stage 1 through stage 4 chronic kidney disease, or unspecified chronic kidney disease; N18.9 Chronic kidney disease, unspecified; E11.22 Type 2 diabetes mellitus with diabetic chronic kidney disease; E78.5 Hyperlipidemia, unspecified; N40.1 Benign prostatic hyperplasia with lower urinary tract symptoms; R31.9 Hematuria, unspecified; R33.8 Other retention of urine; B96.89 Other specified bacterial agents as the cause of diseases classified elsewhere; M10.9 Gout, unspecified; Z79.01 Long term (current) use of anticoagulants; Z79.4 Long term (current) use of insulin; Z86.010 Personal history of colon polyps; Z87.442 Personal history of urinary calculi; Z95.5 Presence of coronary angioplasty implant and graft
CPT/HCPCS: 36415; 36430; 80048; 80053; 82272; 82948; 83735; 85014; 85018; 85025; 85027; 85055; 86850; 86900; 86901; 86920; 87077; 87086; 87088; 87186; 97110; 97161; 97166; 97530; 97535; A9270; J0696; J1815; J2185; J7050; P9016